=== PATIENT | female | born 1945 | race Caucasian/White ===

== ENCOUNTER → 2019-06-07 12:46 | Outpatient (CLI) | payer BC, MEDICARE, SELFPAY ==
--- NOTE | ~2019-06-07 | US_ITS ---
US renal BI 06/07/2019 13:08 Procedure: Realtime transabdominal ultrasound of the kidneys and bladder. Indication: Chronic kidney disease stage III Comparison: 08/17/2017 Findings: Renal echotexture is normal bilaterally without hydronephrosis, contour deforming mass or r enal calculus. The right kidney measures 11 cm and left kidney measures 8.7 cm. Bladder within qi l limits. Impression: 1: Unremarkable renal ultrasound. No stones, masses or hydronephrosis. Reviewed, dictated and finalized at location B. IT REPORT CHECKER Impression: 1: Unremarkable renal ultrasound. No stones, masses or hydronephrosis.
== END ==
PROVIDERS: Visit Provider Internal Medicine Nephrology
DX: N18.3 Chronic kidney disease, stage 3 (moderate) (principal)
CPT/HCPCS: 76775

== ENCOUNTER 2020-05-31 15:27 | Inpatient (IN) | payer BC, MEDICARE, SELFPAY ==
[2020-05-31] VITALS (17 sets, daily range): BP systolic 71–142; BP diastolic 41–98; PULSE 110–123; RESP 16–34; TEMP 36.6–37.4; O2SAT 92–100; BMI 42.7
--- NOTE | ~2020-05-31 | XR_ITS ---
EXAMINATION: XR chest port-a-cath/central DATE: 05/31/2020 20:00 INDICATION: Central line placement. TECHNIQUE: A single frontal view of the chest was obtained. COMPARISON: Chest single view at 3:55 PM FINDINGS: The chest demonstrates clear lungs without pneumonia, pleural effusion, or pneumothorax. Th e heart size is normal. There is a prominent left paracardial fat pad. A right internal jugular centr al venous catheter is seen with tip at the superior cavoatrial junction. IMPRESSION: 1. Central line tip at the superior cavoatrial junction. Reviewed, dictated and finalized at location A. Y TECHNICIAN
--- NOTE | ~2020-05-31 | CT_ITS ---
EXAMINATION: CT brain wo con DATE: 05/31/2020 17:20 INDICATION: Confusion. Fall today. Weakness. TECHNIQUE: Computed tomography (CT) of the head was performed without intravenous contrast. The mA wa s adjusted according to patient size. Iterative reconstruction technique was employed. Exam dose: 60 5.33 mGy-cm total exam DLP. COMPARISON: None FINDINGS: No intracranial mass lesion or hemorrhage or cerebrovascular accident is evident. Bilateral vertebral artery, basilar artery and bilateral carotid siphon internal carotid artery calcifications . There is nonspecific diminished attenuation of the cerebral white matter, likely due to chronic sma ll vessel ischemic changes. Normal ventricular size. No subdural or epidural hematoma. No fracture or bone destruction of the cranial vault. The included paranasal sinuses are normally dev eloped and aerated. The mastoid air cells are normally developed and aerated. IMPRESSION: Cerebral atherosclerosis and chronic small vessel ischemic changes of the cerebral white matter No acute intracranial abnormality or skull fracture Reviewed, dictated and finalized at Location A. Reviewed, dictated and finalized at location A. TROTHERAPIST
--- NOTE | ~2020-05-31 | XR_ITS ---
EXAMINATION: XR chest 2V DATE: 06/06/2020 16:28 INDICATION: 5 days of cough. Hypertension. TECHNIQUE: frontal and lateral views of the chest were obtained. COMPARISON: Chest radiograph dated 05/31/2020 FINDINGS: Opacities at the bilateral lung bases. Blunting at the costophrenic angles and posterior sulci consis tent with small bilateral pleural effusions. No pneumothorax. The cardiomediastinal silhouette is nor mal. There are bridging osteophytes at multiple levels in the spine, consistent with diffuse idiopath ic skeletal hyperostosis (DISH). IMPRESSION: 1. Small bilateral pleural effusions with bibasilar opacities which could represent atelectasis or le ss likely pneumonia. Reviewed, dictated and finalized at location B. FEEDER IMPRESSION: 1. Small bilateral pleural effusions with bibasilar opacities which could repre sent atelectasis or less likely pneumonia.
--- NOTE | ~2020-05-31 | US_ITS ---
US renal BI DATE: 06/01/2020 11:01 INDICATION: Acute on chronic renal disease TECHNIQUE: Real-time imaging of the kidneys and urinary bladder COMPARISON: 06/07/2019 bilateral renal ultrasound FINDINGS: The the right kidney measures approximately 10 cm vertical dimension. No renal mass lesion or hydronephrosis. Catheter in the urinary bladder, which is not distended and therefore not evaluated. IMPRESSION: No significant sonographic abnormality of the kidneys Reviewed, dictated and finalized at Location A. Reviewed, dictated and finalized at location A. S TEAM LEADER
--- NOTE | ~2020-05-31 | XR_ITS ---
EXAMINATION: XR chest 1V portable EXAM DATE: 05/31/2020 16:02 INDICATION: Transient alteration of awareness. TECHNIQUE: Portable AP frontal chest x-ray was obtained. Comparison is made to prior examination from 06/26/2013. FINDINGS: The lungs are clear. There are no pleural effusions. Cardiac silhouette is prominent but magnified on this AP technique. There is no pneumothorax suspected. There are bony degenerative ch anges. IMPRESSION: No acute cardiopulmonary findings. Reviewed, dictated and finalized at location B. TRY CLEANER
--- NOTE | 2020-05-31 15:26 | ED.WEAKNESS ---
HPI - Weakness General Chief complaint: Weakness Stated complaint: WEAKNESS History of Present Illness HPI Narrative: 74 yo female w/ h/o htn, dm, gout, CKF presents to the ED for weakness and confusion. She was reportedly not feeling well earlier in the day. More recently her found her shivering and confused. Asking about her mother. He tried to help her to the bathroom,but she was too weak to stand. She is not able to provide any useful history at this time. Related Data Home Medications Medication Instructions Recorded Confirmed aspirin 81 mg tablet,delayed 81 mg PO DAILY 09/27/19 05/29/20 release gabapentin 300 mg capsule 300 mg PO DAILY 09/27/19 05/29/20 lisinopril 5 mg tablet 5 mg PO DAILY 09/27/19 05/29/20 cholecalciferol (vitamin D3) 50 50 mcg PO DAILY 05/29/20 05/29/20 mcg (2,000 unit) tablet febuxostat 40 mg tablet 40 mg PO DAILY 05/29/20 05/29/20 furosemide 40 mg tablet 40 mg PO QAM 05/29/20 05/29/20 multivitamin 1 tablet PO DAILY 05/29/20 05/29/20 Allergies Allergy/AdvReac Type Severity Reaction Status Date / Time codeine Allergy Intermediate Rash Verified 05/29/20 13:12 Penicillins Allergy Intermediate Rash Verified 05/29/20 13:12 Sulfa (Sulfonamide Allergy Intermediate cheeks get Verified 05/29/20 13:12 Antibiotics) really red Review of Systems Review of Systems: ROS unobtainable: Yes unobtainable due to mental status [facility] Past Medical History Medical History (Updated 05/31/20 @ 19:45 by Pa Walters MD) Anemia BMI 37.0-37.9, adult Chronic kidney disease, stage 4 (severe) Diabetic peripheral neuropathy Thrombosed external hemorrhoid Type 2 diabetes mellitus with hyperglycemia Surgical History Surgical History (Updated 05/29/20 @ 13:20 by VARUN Malone) History of cholecystectomy Hx of tonsillectomy Family History Family History Mother Cerebrovascular accident Other Diabetes mellitus Family history of cardiovascular disease Hypertension Social History Social History (Updated 05/29/20 @ 13:21 by Angelica M. [place], OCCASIONAL CAREGIVER-C) Smoking status: Never smoker Alcohol intake: never Substance use: never Gender identity (if verbalized by the patient): Female Spiritual care concerns: No Exam Const: General: alert and ill appearing Nutritional Appearance: obese Orientation/consciousness: confusion Other: hsivering HENMT: Head: normal to inspection Eyes: Pupils: Equal, round and reactive pupils present EOM: EOMs intact bilaterally Resp: Effort & Inspection: tachypneic Auscultation: clear to auscultation bilaterally Cardio: Rate: tachycardic Rhythm: regular rhythm GI: GI Palp: Yes Soft to palpation and No Tenderness to palpation present (GI) Skin: General skin exam: normal color Neuro: General: moves all extremities, no focal motor deficits and CN's II-XI intact bilaterally Speech: normal speech Other: oriented x1-2 Extrem: General: edema (mild ) Course Vital Signs Vital signs: Vital Signs Pulse Rate 123 H 05/31/20 16:05 Temperature 36.9 C 05/31/20 17:41 Pulse Rate 114 H 05/31/20 19:30 Respiratory Rate 25 H 05/31/20 19:30 Blood Pressure 88/46 L 05/31/20 19:30 Pulse Oximetry 95 05/31/20 19:30 Procedures Central Line Placement Right IJ: Central Line Date: 05/31/20 Central Line Time: 19:43 Discussed w/ the patient/family/POA,the placement of a central venous catheter, including its clinical necessity/indication & associated potential risks, benifits and alternatives.: Yes Time Out Performed: Yes Patient Placed on Monitor/Pulse Ox: Yes Max. Sterile Barrier Technique: Caps, large sterile sheet and hand hygiene Central Line Prep: 2% chlorhexidine scrub and sterile drapes applied Technique: US-Guided Local Anesthetic: lidocaine 1% Amount of anesthesia used (mL): 3 Post Procedure: duffy
--- NOTE | 2020-05-31 15:37 | ECG_ITS ---
Measurements Intervals [place] Rate: 125 P: 53 NJ: 141 QRS: 84 QRSD: 68 T: 67 QT: 270 QTc: 390 Interpretive Statements SINUS TACHYCARDIA BASELINE ARTIFACT- I, AVL ABNORMAL ECG Electronically Signed On 05-31-2020 21:09:36 SUBSTANCE ABUSE SERVICES DIRECTOR by Darnell Ames D.O.
[2020-05-31 16:00] LABS: Hematocrit 36.1 % (37.0-47.0); Hemoglobin 10.7 g/dL (12.0-15.0); Mean Corpuscular HGB Conc 29.6 g/dl (32-36); Mean Corpuscular Hemoglobin 27.2 pg (26-34); Mean Corpuscular Volume 91.6 fl (80-100); Mean Platelet Volume 9.5 fl (7.4-10.4); Platelet Count Result 161 k/mm3 (150-375); Red Blood Count 3.94 M/mm3 (4.2-5.4); Red Cell Distribution Width 17.8 % (11.5-14.5); White Blood Count 3.4 K/mm3 (4.5-10.0)
[2020-05-31 16:05] LABS: Add Urine Microscopic? YES; Appearance Urine Clear (Clear); Bacteria Urine 1+ /hpf; Bilirubin Urine Negative (Negative); Blood Urine Negative (Negative); Color Urine Yellow (Yellow); Glucose Urine UA Negative (Negative); Ketones Urine Negative (Negative); Leukocyte Esterase Ur 2+ LEU/UL (Negative); Mucus Urine Rare /lpf; Nitrate Urine Negative (Negative); Protein Urine 1+ mg/dL (Negative); Specific Grav Ur 1.015 (1.001-1.035); Squamous Epithelial Cell Urine Rare /hpf (Few); Urobilinogen Urine Negative mg/dL (<2.0); WBC Urine 51-75 /hpf
[2020-05-31 16:10] LABS: INR 1.1; Prothrombin Time 14.7 Seconds (11.1-14.7)
[2020-05-31 16:11] LABS: Partial Thromboplastin Time 37.6 SECONDS (22.3-36.8)
[2020-05-31 16:16] LABS: Lactic Acid Reflex 3.1 mmol/L (0.7-2.1)
[2020-05-31 16:18] LABS: Band Neutrophils Percent 13 % (0-6); Lymphocytes Absolute Manual 1.36 K/mm3 (1.1-4.5); Monocytes Absolute Manual 0.06 K/mm3 (0.1-0.90); Monocytes Percent Manual 2 % (3-9); Neutrophils Absolute Manual 1.97 K/mm3 (1.7-7.2); Neutrophils Percent Manual 45 % (46-73); Platelet Estimate Adequate (Adequate); Total Cells Counted 100
[2020-05-31 16:19] LABS: Anisocytosis 2+ (NORMAL); Hypochromasia 1+ (NORMAL)
[2020-05-31 16:27] LABS: Alanine Aminotransferase 33 U/L (4-35); Alkaline Phosphatase 131 U/L (38-126); Anion Gap 15 mmol/L (8-16); Aspartate Amino Transferase 37 U/L (14-36); Bilirubin,Total 0.5 mg/dL (0.2-1.3); Blood Urea Nitrogen 87 mg/dL (7-17); CRP > 9.0 mg/dL (<1.0); Calcium 8.9 mg/dL (8.4-10.2); Carbon Dioxide 12 mmol/L (22-30); Chloride 113 mmol/L (98-107); Estimated Glomerular Filt Rate 12; Glucose 81 mg/dL (65-105); Sodium 140 mmol/L (137-145)
[2020-05-31] MEDS: SODIUM CHLORIDE 0.9% IV 1,000 ML 999 ML IV CONT ×3 (17:11→18:20)
[2020-05-31 18:58] LABS: Reflex Lactic Acid Yes or No Add Lactic
--- NOTE | 2020-05-31 19:11 | PC.NURSE ---
Consent obtained for central line placement.
--- NOTE | 2020-05-31 19:21 | PC.NURSE ---
dr. edison alegria doing a central line.
[2020-05-31] MEDS: NOREPINEPHRINE 8 MG/D5W 250 ML 8 MG/250 ML BAG 9.38 MG IV CONT (20:03)
[2020-05-31 20:07] LABS: Lactic Acid 1.2 mmol/L (0.7-2.1)
--- NOTE | 2020-05-31 20:54 | PM.IMHP ---
H&P: HPI History of Present Illness Date/Time: 05/31/20 20:54 Chief Complaint: Fever and chills Narrative: Kori Arellano is a 74 year old female who has a history of diabetes gout and chronic kidney disease. The patient stated that she started to feel weak and febrile approximately 2 days ago. She was very achy. She was found to be shivering and confused today. She was asking about her mother today. The patient was too weak to stand. Her tried to get up today was unable to. The was providing history for me. White count 3.4. H&H is 10.7 and 36.1. The patient does have a history of chronic anemia. Most likely due to the chronic renal failure. Creatinine was 3.8 and GFR is 12. Lactic acid was 3.1 and is now 1.2. C reactive protein is greater than 9. Urine was positive for UTI. Patient was swabbed for COVID-19 as well. Patient was started on ceftriaxone. She had been given some IV fluids. Patient was given for IV boluses. Regardless of the boluses the patient's blood pressure continued to drop and a central line was placed per ED provider and the patient was started on Levophed. CT of the head was read as cerebral atherosclerosis and chronic small vessel ischemic changes of cerebral white matter, no acute intracranial abnormality or skull fracture. The patient was swabbed for COVID-19 Chest x-ray was read as no acute cardiopulmonary findings. The patient was admitted inpatient on the date of service 05/31/2020. She is admitted to ICU. Review of Systems Review of Systems: All systems reviewed & are unremarkable except as noted in HPI and below Constitutional: Constitutional: Reports as per HPI and Reports no additional constitutional complaints Eyes: Eyes: Reports as per HPI and Reports no additional eye complaints ENT: Reports system reviewed and no additional complaints, except as documented and Reports Normal hearing present Cardiovascular: Cardiovascular: Reports no additional cardiovascular complaints Respiratory: Respiratory: Reports no additional respiratory complaints and Reports no additional respiratory complaints Gastrointestinal: Gastrointestinal: Reports as per HPI and Reports no additional gastrointestinal complaints Musculoskeletal: Musculoskeletal: Reports no additional musculoskeletal complaints Integumentary/Breasts: Skin/Breast: Reports system reviewed and no additional complaints, except as docu and Reports as per HPI Neurologic: Reports system reviewed and no additional complaints, except as documented, Reports as per HPI and Reports Normal hearing present Psychiatric: Psychiatric: Reports no additional psychiatric complaints and Reports as per HPI Endocrine: Endocrine: Reports no additional endocrine complaints Hematologic/Lymphatic: Hematologic/Lymphatic: Reports no additional hematologic/lymphatic complaints Allergic/Immunologic: Allergic/Immunologic: Reports no additional allergic/immunologic complaints [facility] Past Medical History Medical History (Updated 05/31/20 @ 21:52 by Pau Farmer NP) Anemia BMI 37.0-37.9, adult CHF (congestive heart failure), NYHA class I Chronic kidney disease, stage 4 (severe) Diabetic peripheral neuropathy Hyperlipidemia, unspecified Hypertension, essential Thrombosed external hemorrhoid Type 2 diabetes mellitus with hyperglycemia Surgical History Surgical History History of cholecystectomy Hx of tonsillectomy Family History Family History (Updated 05/31/20 @ 21:27 by Kenyatta Perales RN) Mother Cerebrovascular accident Diabetes mellitus Family history of cardiovascular disease Father Myocardial infarction Sibling Colon cancer Congestive heart failure Other Hypertension Social History Social History (Updated 05/31/20 @ 21:14 by Pau Farmer NP) Social History: The patient had 3 children. 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 Power
--- NOTE | 2020-05-31 21:25 | ADMGEN ---
This patient, Kori Arellano, was admitted to Intensive Care Unit-5. Patient/family oriented to hospital policies and general routines including ID bracelet, bed and alarms, visiting hours, pain management, procedures, bathroom and other care routines, personal items, smoking policy, room service/diet, and visiting hours. Information on how to activate the Rapid Response Team has been discussed. Patient/Family are encouraged to report perceived risks to care and to ask questions if they do not understand what they are told or what they should do.
[2020-05-31 21:37] LABS: Glucose Point of Care 92 (65-105)
[2020-05-31] MEDS: GABAPENTIN 300 MG CAPSULE PO (23:37)
[2020-06-01] VITALS (16 sets, daily range): BP systolic 98–120; BP diastolic 56–87; PULSE 105–117; RESP 14–28; TEMP 36.8–37.5; O2SAT 95–100
--- NOTE | 2020-06-01 | ECHO_ITS ---
Patient Info Name: Kori Arellano Age: 74 years : 1945 Gender: Female Ht: 61 in Wt: 226 lbs BSA: 2.16 m2 HR: 103 bpm BP: 118 / 60 mmHg Heart Rhythm: Tachycardia Technical Quality: Fair Exam Date: 06/01/2020 11:16 AM Exam Location: [facility] Pulmonary Exam Room: ICU 5 Patient Status: Inpatient Admit Date: 05/31/2020 Staff Ordering Physician: Pau Farmer NP Electro Plater: Carolina Johansen RDCS Attending Provider: Marvin Chang MD Referring Physician: Darian WANG; Exam Type: CA echo doppler color flow Study Info Indications - chf Complete two-dimensional, color flow and Doppler transthoracic echocardiogram is performed. Summary 1. Complete two-dimensional, color flow and Doppler transthoracic echocardiogram is performed. 2. Left ventricular systolic function is normal, estimated at 60-65%. 3. There is no increased left ventricular wall thickness. 4. The left ventricular diastolic function is grade I diastolic dysfunction. 5. Right atrial chamber dimension is mildly enlarged. 6. There is no aortic valve stenosis. 7. There is trace mitral valve regurgitation. 8. There is mild tricuspid valve regurgitation. 9. Moderate pulmonary hypertension, estimated pulmonary arterial systolic pressure is 50 mmHg. Left Ventricle Left ventricular chamber dimension is normal. Left ventricular systolic function is normal, estimated at 60-65%. There is no increased left ventricular wall thickness. The left ventricular diastolic function is grade I diastolic dysfunction. Right Ventricle Right ventricular chamber dimension is normal. Right ventricular systolic function is normal. Left Atria Left atrial chamber dimension is normal. Right Atria Right atrial chamber dimension is mildly enlarged. Aortic Valve The aortic valve is probable trileaflet. There is mild aortic valve sclerosis. There is no aortic valve stenosis. There is no aortic valve regurgitation. Pulmonic Valve The pulmonic valve is not well visualized. There is trace pulmonic regurgitation. Mitral Valve The mitral valve has normal leaflets. There is trace mitral valve regurgitation. The mitral valve annulus is mildly calcified. Tricuspid Valve The tricuspid valve leaflets are normal. There is mild tricuspid valve regurgitation. Moderate pulmonary hypertension, estimated pulmonary arterial systolic pressure is 50 mmHg. Pericardium/Pleural The pericardium appears normal. There is small pericardial effusion. Inferior Vena Cava Normal inferior vena cava with <50% collapse upon inspiration consistent with elevated right atrial pressure, 10 mmHg. Aorta The aortic root size at the sinus of Valsalva is normal. There is mild aortic atherosclerosis. Left Ventricular Outflow Tract Name Value Normal LVOT 2D LVOT Diameter 2.0 cm LVOT Doppler LVOT Peak Gradient 6 mmHg LVOT Mean Gradient 3 mmHg LVOT VTI 20 cm LVOT VTI/AV VTI Ratio 1.1 LVOT Stroke Volume 62 ml
[2020-06-01] MEDS: ACETAMINOPHEN 325 MG TABLET 650 MG PO ×2 (03:00→23:40)
[2020-06-01 05:00] LABS: Hematocrit 29.5 % (37.0-47.0); Hemoglobin 8.9 g/dL (12.0-15.0); Mean Corpuscular HGB Conc 30.2 g/dl (32-36); Mean Corpuscular Hemoglobin 27.1 pg (26-34); Mean Corpuscular Volume 89.9 fl (80-100); Mean Platelet Volume 9.7 fl (7.4-10.4); Platelet Count Result 151 k/mm3 (150-375); Red Blood Count 3.28 M/mm3 (4.2-5.4); Red Cell Distribution Width 17.8 % (11.5-14.5); White Blood Count 19.9 K/mm3 (4.5-10.0)
[2020-06-01 05:13] LABS: Hemoglobin A1C 6.5 % (<5.7)
[2020-06-01 05:14] LABS: Alanine Aminotransferase 26 U/L (4-35); Alkaline Phosphatase 90 U/L (38-126); Anion Gap 9 mmol/L (8-16); Aspartate Amino Transferase 35 U/L (14-36); Bilirubin,Total 0.1 mg/dL (0.2-1.3); Blood Urea Nitrogen 81 mg/dL (7-17); Calcium 7.8 mg/dL (8.4-10.2); Carbon Dioxide 16 mmol/L (22-30); Chloride 115 mmol/L (98-107); Estimated CRCL calculation 13 ml/min; Estimated Glomerular Filt Rate 11; Glucose 158 mg/dL (65-105); Magnesium 1.5 mg/dL (1.6-2.3); Potassium 5.3 mmol/L (3.4-5.0); Sodium 140 mmol/L (137-145)
[2020-06-01 05:15] LABS: Lactic Acid Reflex 1.4 mmol/L (0.7-2.1)
[2020-06-01 05:22] LABS: Band Neutrophils Percent 14 % (0-6); Lymphocytes Absolute Manual 1.19 K/mm3 (1.1-4.5); Monocytes Absolute Manual 0.19 K/mm3 (0.1-0.90); Monocytes Percent Manual 1 % (3-9); Neutrophils Percent Manual 79 % (46-73); Platelet Estimate Adequate (Adequate); Total Cells Counted 100
[2020-06-01 07:55] LABS: Glucose Point of Care 135 (65-105)
[2020-06-01] MEDS: ALBUTEROL SULFATE NEB 2.5 MG/0.5 ML INH 10 MG INHALATION (08:15)
--- NOTE | 2020-06-01 08:21 | WPDCNINT ---
Assessment and Plan Assessment and plan (1) Septic shock: Code(s): A41.9 - Sepsis, unspecified organism; R65.21 - Severe sepsis with septic shock Status: Acute Assessment and Plan: Patient presented with fevers, chills, generalized weakness. Was found to be hypotensive in the ED despite adequate fluid resuscitation -patient was started on Levophed briefly currently off -continue to maintain mean arterial pressures greater than 65 mmHg for adequate end organ perfusion and to prevent end-organ damage -continue ceftriaxone -urine and blood cultures have been obtained and pending -elevated lactic acid on admission which resolved with fluids (2) UTI (urinary tract infection): Code(s): N39.0 - Urinary tract infection, site not specified Status: Acute Assessment and Plan: UA reflective of UTI, urine cultures are pending, continue ceftriaxone (3) Acute kidney injury superimposed on chronic kidney disease: Code(s): N17.9 - Acute kidney failure, unspecified; N18.9 - Chronic kidney disease, unspecified Status: Acute Assessment and Plan: Acute on chronic kidney disease, likely secondary to infection, hypotension, hypovolemia, septic shock and lisinopril -patient adequately fluid-resuscitated -patient with metabolic acidosis, started on bicarb infusion at 50 mL/hour -hyperkalemia, will treat with insulin and D50, albuterol and Kayexalate -nephrology has been consulted -will obtain urine lytes (4) Type 2 diabetes mellitus with hyperglycemia: Code(s): E11.65 - Type 2 diabetes mellitus with hyperglycemia Status: Chronic Assessment and Plan: Continue Accu-Cheks and sliding scale insulin -hemoglobin A1c 6.5 on this admission -patient has history of diabetic neuropathy for which she is on gabapentin (5) Weakness: Code(s): R53.1 - Weakness Status: Acute Assessment and Plan: Weakness in lower extremities could be related to hypertension, infection/septic shock, UTI, diabetic neuropathy -treatment of the underlying cause -also restarted on home, pending (6) CHF (congestive heart failure), NYHA class I: Code(s): I50.9 - Heart failure, unspecified Status: Chronic Assessment and Plan: Echocardiogram has been ordered on admission -Show any acute cardiopulmonary disease (7) DVT prophylaxis: Code(s): Z29.9 - Encounter for prophylactic measures, unspecified Status: Acute Assessment and Plan: Heparin SQ (8) Suspected 2019 novel coronavirus infection: Code(s): Z20.822 - Contact with and (suspected) exposure to COVID-19 Status: Acute Assessment and Plan: Patient was fevers, chills, leukopenia. Patient denies any contact with COVID-19 positive patient's -SARS-CoV-2 PCR has been obtained and pending -continue droplet, airborne and contact isolation/precautions Additional Plan Discussed with patient updated with her condition and plan of care. I did update her regarding her UTI, possible bloodstream infection, patient is on appropriate antibiotics, cultures are pending. I told her that we are waiting for her COVID-19 test results. I answered all questions Code status: Full code Critical care time spent: 44 minutes This dictation may have been done utilizing a voice recognition system. Attempts have been made to correct errors. However, there may be uncorrected grammatical, spelling, and recognition errors present. Due to a high probability of clinically significant, life threatening deterioration, the patient required my highest level of preparedness to intervene emergently and I personally spent this critical care time directly and personally managing the patient. This critical care time included obtaining a history; examining the patient; pulse oximetry; ordering and review of studies; arranging urgent treatment with development of a management plan; evaluation of patient's response to treatment; frequent rip
[2020-06-01] MEDS: SODIUM BICARBONATE 8.4% 50 MEQ/50 ML SYRINGE IV PUSH ×2 (08:30→08:31)
[2020-06-01] MEDS: INSULIN HUMAN REGULAR (*BKC) 100 UNITS/ML 10 UNITS IV PUSH (08:31)
[2020-06-01] MEDS: DEXTROSE 50% 25 GM/50 ML SYRINGE IV PUSH (08:31)
[2020-06-01] MEDS: GLIMEPIRIDE 2 MG TABLET PO ×2 (08:32→17:29)
[2020-06-01] MEDS: ASPIRIN 81 MG ENTERIC TABLET PO (08:32)
[2020-06-01] MEDS: GABAPENTIN 300 MG CAPSULE PO ×3 (08:32→19:37)
[2020-06-01] MEDS: SODIUM BICARBONATE 8.4% 150 MEQ in WATER, STERILE FOR INJECTION 950 ML 50 MEQ IV CONT (08:51)
[2020-06-01 09:42] LABS: Creatinine Urine 84.3 mg/dL
[2020-06-01] MEDS: HEPARIN SODIUM 5,000 UNITS/ML VIAL 5000 UNITS SUB-Q ×2 (10:05→19:37)
[2020-06-01] MEDS: SODIUM POLYSTYRENE SULFONONATE 15 GM/60 ML BTL 30 GM PO (10:05)
[2020-06-01 10:06] LABS: Potassium Urine Random 34.3 meq/L; Sodium Urine Random 30 meq/L
[2020-06-01 11:54] LABS: Glucose Point of Care 146 (65-105)
[2020-06-01 12:10] LABS: Anion Gap 11 mmol/L (8-16); Blood Urea Nitrogen 85 mg/dL (7-17); Calcium 7.7 mg/dL (8.4-10.2); Carbon Dioxide 19 mmol/L (22-30); Chloride 114 mmol/L (98-107); Estimated CRCL calculation 13 ml/min; Estimated Glomerular Filt Rate 11; Glucose 156 mg/dL (65-105); Potassium 4.5 mmol/L (3.4-5.0); Sodium 144 mmol/L (137-145)
--- NOTE | 2020-06-01 16:21 | PM.IMPN ---
Subjective Date/time seen: 06/01/20 16:21 Interval history: 74 year old female with significant past medical history of CHF, chronic kidney disease stage 4, diabetic peripheral neuropathy, hyperlipidemia, essential hypertension, diabetes presented the ED on 05/31/2020 with complains of generalized weakness that started about 2 days ago the patient also complained of fevers and was found to have chills on the day of admission. Objective Data Vital Signs Vital Signs: Vital Signs - 24 hr 05/31/20 17:24 05/31/20 17:41 05/31/20 17:56 Temperature 36.9 C Pulse Rate 115 H 114 H Respiratory Rate 27 H 23 H Blood Pressure 90/49 L 87/41 L Pulse Oximetry 93 94 05/31/20 18:14 05/31/20 18:23 05/31/20 18:38 Temperature Pulse Rate 111 H 115 H 111 H Respiratory Rate 21 H 20 30 H Blood Pressure 84/52 L 91/56 L 88/51 L Pulse Oximetry 93 93 92 05/31/20 18:49 05/31/20 18:50 05/31/20 19:22 Temperature Pulse Rate 110 H 111 H 112 H Respiratory Rate 22 H 24 H 26 H Blood Pressure 84/53 L 95/48 L 71/57 L Pulse Oximetry 93 94 94 05/31/20 19:30 05/31/20 20:03 05/31/20 20:15 Temperature Pulse Rate 114 H 116 H 115 H Respiratory Rate 25 H 19 Blood Pressure 88/46 L 79/53 L 96/49 L Pulse Oximetry 95 94 05/31/20 21:51 05/31/20 22:00 05/31/20 23:34 Temperature 36.6 C Pulse Rate 114 H 112 H 116 H Respiratory Rate 16 22 H Blood Pressure 93/51 L 92/54 L 119/63 Pulse Oximetry 97 100 06/01/20 00:00 06/01/20 02:00 06/01/20 04:00 Temperature 37.5 C Pulse Rate 116 H 117 H 114 H Respiratory Rate 20 22 H Blood Pressure 120/68 117/73 Pulse Oximetry 97 98 06/01/20 05:00 06/01/20 06:00 06/01/20 08:00 Temperature 37.4 C Pulse Rate 116 H 106 H Respiratory Rate 25 H 21 H Blood Pressure 100/61 118/60 107/74 Pulse Oximetry 99 97 06/01/20 08:16 06/01/20 10:00 06/01/20 12:00 Temperature 37.2 C Pulse Rate 106 H 108 H 106 H Respiratory Rate 21 H 22 H 21 H Blood Pressure 98/58 L 117/56 L Pulse Oximetry 95 99 06/01/20 14:00 06/01/20 16:00 Temperature Pulse Rate 114 H 105 H Respiratory Rate 28 H Blood Pressure 102/87 Pulse Oximetry 98 Intake/Output Intake/Output: Intake & Output 05/29/20 05/30/20 05/31/20 06/01/20 23:59 23:59 23:59 23:59 Intake Total 3150 860 Output Total 550 425 Balance 2600 435 Meds/Results Medications: Active Medications Generic Name Dose Route Start Last Admin Trade Name Freq PRN Reason Stop Dose Admin Acetaminophen 650 mg 06/01/20 01:09 06/01/20 03:00 Acetaminophen 325 Mg Tablet PO 650 mg Q4H PRN Administration Mild Pain (1-3) or Fever Aspirin 81 mg 06/01/20 09:00 06/01/20 08:32 Aspirin 81 Mg Enteric Tablet PO 81 mg DAILY JACKY Administration Dextrose 12.5 gm 05/31/20 20:59 Dextrose 50% 25 Gm/50 Ml Syringe IV PUSH PRN PRN Hypoglycemia Protocol Gabapentin 300 mg 05/31/20 21:45 06/01/20 13:26 Gabapentin 300 Mg Capsule PO Not Given QID JACKY Glimepiride 2 mg 06/01/20 09:00 06/01/20 08:32 Glimepiride 2 Mg Tablet PO 2 mg BID JACKY Administration Glucagon 1 mg 05/31/20 20:59 Glucagon For Inj 1 Mg Vial IM PRN PRN Hypoglycemia Protocol Glucose 15 gm 05/31/20 20:59 Glucose Oral Gel 15 Gm Of Glucse In 37.5 Gm Tube PO PRN PRN Hypoglycemia Protocol Heparin Sodium (Porcine) 5,000 units 06/01/20 09:00 06/01/20 10:05 Heparin Sodium 5,000 Units/Ml Vial SUB-Q 5,000 units Q12HR JACKY Administration Ceftriaxone Sodium/Dextrose 1 gm in 50 mls @ 100 mls/hr 06/01/20 18:00 Rocephin 1 Gm/D5w 50 Ml IVPB Q24H JACKY Dextrose 1,000 mls @ 100 mls/hr 05/31/20 20:59 Dextrose 5% 1,000 Ml IVPB PRN PRN Hypoglycemia Protocol Norepinephrine Bitartrate 8 mg in 250 mls @ 0 mls/hr 06/01/20 07:15 Levophed 8 Mg/D5w 250 Ml IV CONT .Q0M JACKY Sodium Bicarbonate 150 meq/ 1,100 mls @ 75 mls/hr 06/01/20 08:30 06/01/20 1
--- NOTE | 2020-06-01 17:03 | PM.CNNEP ---
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 follow-up on renal ultrasound and urine lytes follow trend repeat labs and UOP (2) Chronic kidney disease, stage 4 (severe): Code(s): N18.4 - Chronic kidney disease, stage 4 (severe) Status: Chronic Assessment and Plan: baseline creatinine runs ~ 1.7 - 2.2mg/dl in the last couple of years based on outpatient evaluation, thought to be secondary to HTN, DM, and vascular disease (3) Septic shock: Code(s): A41.9 - Sepsis, unspecified organism; R65.21 - Severe sepsis with septic shock Status: Acute Assessment and Plan: possible urosepsis given + blood and urine cultures on IV antibiotics wean off vasopressor therapy follow hemodynamics (4) Metabolic acidosis: Code(s): E87.2 - Acidosis Status: Acute Assessment and Plan: due to NATE along with previous lactic acidosis bicarb gtt to compensate (5) Anemia: Code(s): D64.9 - Anemia, unspecified Status: Chronic Assessment and Plan: partly due to CKD but worsened by NATE and acute illness/infection follow trend of H/H (6) Diabetes: Code(s): E11.9 - Type 2 diabetes mellitus without complications Status: Acute Assessment and Plan: follow accuchecks glycemic control Will continue to follow. History of Present Illness Reason for Consult Consult date: 06/01/20 Reason for consult: acute renal failure (on chronic kidney disease) Chief Complaint Chief complaint: Septic shock, UTI, possible COVID-19 History of Present Illness Narrative: The patient is as 74 year old female with significant past medical history as outlined below who presented the ED with complains of generalized weakness. The patient states that the weakness started about 2-3 days ago in association with fevers and chills. Her weakness was so profound that she was unable to stand or even use the restroom. Because of this significant change she was brought to the emergency room for further evaluation. Workup and evaluation emergency room demonstrated routine labs with a low white blood cell count, elevated lactic acid and an elevated BUN and creatinine far above her baseline. She was also hypotensive and appeared to be shock. She was she received aggressive IV fluid resuscitation but despite this, she remained hypotensive and a central line had to be placed with initiation of vasopressor therapy. Her chest x-ray did not demonstrate any acute findings but her urinalysis was highly suggestive of a urinary tract infection. Appropriate cultures were obtained and she was started on broad-spectrum IV antibiotic therapy with subsequent admission to the intensive care unit. Since her admission, she has improved in that she has been weaned off Levophed with relative stability in her hemodynamics. Her mentation appears to be doing reasonably well and she has made more urine output since her admission than when she was in the emergency room. She is otherwise in no acute distress. Renal consultation was requested due to her acute kidney injury on top of her chronic kidney disease. The patient normally follows in clinic with Dr. Sourav Ramirez for her ongoing CKD management. Her baseline creatinine normally runs around 1.7-2.2 mg/dL in the last few years thought to be secondary to a combination of her hypertension and diabetes based on outpatient evaluation. Her creatinine on admission as already noted was 3.9 mg/dL but has not further deteriorated since her admission. Review of Systems Review of Systems: Narrative: As per HPI. PMFSH P
[2020-06-01 17:35] LABS: Glucose Point of Care 107 (65-105)
[2020-06-01 19:42] LABS: SARS-CoV-2 RNA PCR Negative
--- NOTE | 2020-06-01 21:31 | PC.NURSE ---
This patient, Kori Arellano, was transferred to [ [id number]] on 06/01/20 at 2131. Personal belongings sent with patient. Report given to [[facility] ]. Appropriate documentation sent with patient.
[2020-06-01 21:49] LABS: Glucose Point of Care 158 (65-105)
[2020-06-02] VITALS (14 sets, daily range): BP systolic 115–137; BP diastolic 52–67; PULSE 97–116; RESP 12–18; TEMP 36.1–38.3; O2SAT 94–98
[2020-06-02] MEDS: SODIUM BICARBONATE 8.4% 150 MEQ in WATER, STERILE FOR INJECTION 950 ML 75 MEQ IV CONT ×2 (00:07→15:40)
[2020-06-02 03:16] LABS: Hematocrit 24.5 % (37.0-47.0); Hemoglobin 7.8 g/dL (12.0-15.0); Mean Corpuscular HGB Conc 31.8 g/dl (32-36); Mean Corpuscular Hemoglobin 27.3 pg (26-34); Mean Corpuscular Volume 85.7 fl (80-100); Mean Platelet Volume 9.5 fl (7.4-10.4); Platelet Count Result 134 k/mm3 (150-375); Red Blood Count 2.86 M/mm3 (4.2-5.4); White Blood Count 12.6 K/mm3 (4.5-10.0)
[2020-06-02 03:31] LABS: Lactic Acid Reflex 1.2 mmol/L (0.7-2.1)
[2020-06-02 03:33] LABS: Alanine Aminotransferase 23 U/L (4-35); Albumin Level 2.7 g/dL (3.5-5.1); Alkaline Phosphatase 90 U/L (38-126); Anion Gap 7 mmol/L (8-16); Aspartate Amino Transferase 31 U/L (14-36); Bilirubin,Total 0.1 mg/dL (0.2-1.3); Blood Urea Nitrogen 89 mg/dL (7-17); Calcium 7.3 mg/dL (8.4-10.2); Carbon Dioxide 24 mmol/L (22-30); Chloride 111 mmol/L (98-107); Estimated CRCL calculation 13 ml/min; Estimated Glomerular Filt Rate 12; Glucose 158 mg/dL (65-105); Magnesium 1.7 mg/dL (1.6-2.3); Phosphorus 4.3 mg/dL (2.5-4.5); Potassium 3.9 mmol/L (3.4-5.0); Sodium 142 mmol/L (137-145)
[2020-06-02 03:39] LABS: Band Neutrophils Percent 14 % (0-6); Eosinophils Absolute Manual 0.12 K/mm3 (0.02-0.5); Eosinophils Percent Manual 1 % (0-4); Lymphocytes Absolute Manual 1.51 K/mm3 (1.1-4.5); Monocytes Absolute Manual 0.12 K/mm3 (0.1-0.90); Monocytes Percent Manual 1 % (3-9); Neutrophils Absolute Manual 10.83 K/mm3 (1.7-7.2); Neutrophils Percent Manual 72 % (46-73); Platelet Estimate Adequate (Adequate); Total Cells Counted 100
[2020-06-02] MEDS: ACETAMINOPHEN 325 MG TABLET 650 MG PO ×3 (05:31→17:11)
[2020-06-02 07:16] LABS: Glucose Point of Care 124 (65-105)
[2020-06-02] MEDS: GABAPENTIN 300 MG CAPSULE PO ×4 (08:41→20:27)
[2020-06-02] MEDS: ASPIRIN 81 MG ENTERIC TABLET PO (08:41)
[2020-06-02] MEDS: GLIMEPIRIDE 2 MG TABLET PO ×2 (08:41→17:12)
[2020-06-02] MEDS: HEPARIN SODIUM 5,000 UNITS/ML VIAL 5000 UNITS SUB-Q ×2 (08:41→20:27)
[2020-06-02 11:48] LABS: Glucose Point of Care 133 (65-105)
--- NOTE | 2020-06-02 11:51 | PM.IMPN ---
Progress Note: A&P Assessment and Plan (1) Sepsis: Code(s): A41.9 - Sepsis, unspecified organism Status: Acute Assessment and Plan: The patient was started on ceftriaxone. Blood and urine cultures are pending. (2) UTI (urinary tract infection): Code(s): N39.0 - Urinary tract infection, site not specified Status: Acute Assessment and Plan: Patient is on Rocephin. Blood and urine cultures are pending. (3) Hyperlipidemia, unspecified: Code(s): E78.5 - Hyperlipidemia, unspecified Status: Chronic Assessment and Plan: I am holding simvastatin at this time. (4) Hypertension, essential: Code(s): I10 - Essential (primary) hypertension Status: Chronic Assessment and Plan: I am holding all of her antihypertensive medications due to her low blood pressure. (5) Chronic kidney disease, stage 4 (severe): Code(s): N18.4 - Chronic kidney disease, stage 4 (severe) Status: Chronic Assessment and Plan: It appears to be worsening. She has chronic renal failure stage 3 to 4. nephrology on the case. pt is on sodium bicarbonate drip . (6) Type 2 diabetes mellitus with hyperglycemia: Code(s): E11.65 - Type 2 diabetes mellitus with hyperglycemia Status: Chronic Assessment and Plan: Accu-Cheks AC and HS. =. (7) CHF (congestive heart failure), NYHA class I: Code(s): I50.9 - Heart failure, unspecified Status: Chronic Assessment and Plan: Lasix is on hold at this time. And lisinopril is on hold. (8) Anemia: Code(s): D64.9 - Anemia, unspecified Status: Chronic Assessment and Plan: Of chronic disease. hb is 7.8 Subjective Date/time seen: 06/01/20 11:51 Interval history: 74 year old female with significant past medical history of CHF, chronic kidney disease stage 4, diabetic peripheral neuropathy, hyperlipidemia, essential hypertension, diabetes presented the ED on 05/31/2020 with complains of generalized weakness and fevers, pt awaiting covid result. Complains of abdominal discomfort. Pt is off vasopressor can be transferred to medical floor. Review of Systems Review of Systems: All systems reviewed & are unremarkable except as noted in HPI and below Exam Const: General: cooperative and ill appearing HENMT: Head: normocephalic Eyes: General: appearance normal, both eyes and all related structures Neck: Neck: normal visual inspection, full ROM and no lymphadenopathy Chest: Chest palpation & inspection: normal inspection of the chest Resp: Effort & Inspection: normal respiratory effort Auscultation: clear to auscultation bilaterally Percussion: percussion normal Cardio: Palpation: normal PMI Rate: regular rate Rhythm: regular rhythm GI: Inspection: normal to inspection Auscultation: normal bowel sounds Skin: General skin exam: normal color Lesions: no lesions Rashes: no rashes Trauma: no lacerations or abrasions Wounds: no wounds Hair: normal Nails: normal Neuro: General: oriented to person and oriented to place Cranial nerves: Yes Equal, round and reactive pupils present and Yes Normal hearing present Cognition (Neuro): normal cognition Speech: normal speech Gait exam (Neuro): Normal gait present Motor exam (neuro): 5/5 motor strength present throughout Sensory Exam: normal sensation Extrem: General: normal to inspection Right upper extremity: normal to inspection Left upper extremity: normal to inspection Left lower extremity: normal to inspection Psych: Appearance: grossly normal Mental Status: mental status grossly normal Speech and movement: Normal speech and movement present Affect: normal affect Attitude: cooperative Thought process: Other thought process findings present (Slightly confused) Insight: Limited insight present (Psych) Judgement: Limited judgement present (Psych) Objective Data Vital Signs Vital Signs: Vital Signs - 24 hr 06/01
--- NOTE | 2020-06-02 12:22 | PM.IMPN ---
Progress Note: A&P Assessment and Plan (1) Sepsis: Code(s): A41.9 - Sepsis, unspecified organism Status: Acute Assessment and Plan: The patient was started on ceftriaxone. Pt had Ecoli in her blood culture and urine culture. (2) UTI (urinary tract infection): Code(s): N39.0 - Urinary tract infection, site not specified Status: Acute Assessment and Plan: Patient is on Rocephin. Pt had Ecoli in her blood culture and urine culture. (3) Hyperlipidemia, unspecified: Code(s): E78.5 - Hyperlipidemia, unspecified Status: Chronic Assessment and Plan: Simvastatin at hold at this time. (4) Hypertension, essential: Code(s): I10 - Essential (primary) hypertension Status: Chronic Assessment and Plan: I am holding all of her antihypertensive medications due to her low blood pressure. (5) Chronic kidney disease, stage 4 (severe): Code(s): N18.4 - Chronic kidney disease, stage 4 (severe) Status: Chronic Assessment and Plan: It appears to be worsening. She has chronic renal failure stage 3 to 4. nephrology on the case. Pt is on sodium bicarbonate drip. Nephrology rounding. Continue to watch BMP. (6) Type 2 diabetes mellitus with hyperglycemia: Code(s): E11.65 - Type 2 diabetes mellitus with hyperglycemia Status: Chronic Assessment and Plan: Accu-Cheks AC and HS. (7) CHF (congestive heart failure), NYHA class I: Code(s): I50.9 - Heart failure, unspecified Status: Chronic Assessment and Plan: Lasix is on hold at this time. And lisinopril is on hold. (8) Anemia: Code(s): D64.9 - Anemia, unspecified Status: Chronic Assessment and Plan: Of chronic disease. hb is 7.8 Subjective Date/time seen: 06/02/20 12:22 Interval history: 74 year old female with significant past medical history of CHF, chronic kidney disease stage 4, diabetic peripheral neuropathy, hyperlipidemia, essential hypertension, diabetes presented the ED on 05/31/2020 with complains of generalized weakness and fevers. Complains of abdominal discomfort. and diarrhea. Pt creat is 3.8 today. covid is negative. Pt had Ecoli in her blood culture and urine culture. Pt has history of diverticular disease. Review of Systems Review of Systems: All systems reviewed & are unremarkable except as noted in HPI and below Exam Const: General: ill appearing Orientation/consciousness: oriented to person and oriented to place HENMT: Head: normocephalic Eyes: General: appearance normal, both eyes and all related structures Pupils: Equal, round and reactive pupils present Neck: Neck: normal visual inspection, full ROM and no lymphadenopathy Chest: Chest palpation & inspection: normal inspection of the chest Resp: Effort & Inspection: normal respiratory effort Auscultation: clear to auscultation bilaterally Percussion: percussion normal Cardio: Palpation: normal PMI Rate: regular rate Rhythm: regular rhythm GI: Inspection: normal to inspection Auscultation: normal bowel sounds Skin: General skin exam: normal color Lesions: no lesions Rashes: no rashes Trauma: no lacerations or abrasions Wounds: no wounds Hair: normal Nails: normal Neuro: General: oriented to person and oriented to place Cranial nerves: Yes Equal, round and reactive pupils present and Yes Normal hearing present Cognition (Neuro): normal cognition Speech: normal speech Gait exam (Neuro): Normal gait present Motor exam (neuro): 5/5 motor strength present throughout Sensory Exam: normal sensation Extrem: General: normal to inspection Right upper extremity: normal to inspection Left upper extremity: normal to inspection Left lower extremity: normal to inspection Psych: Appearance: grossly normal Mental Status: mental status grossly normal Speech and movement: Normal speech and movement present Affect: normal affect Attitude: cooperative Thought
--- NOTE | 2020-06-02 14:51 | PM.PNNEP ---
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 renal ultrasound wihtout obstruction urine lytes suggestive of prerenal azotemia follow trend repeat labs and UOP (2) Chronic kidney disease, stage 4 (severe): Code(s): N18.4 - Chronic kidney disease, stage 4 (severe) Status: Chronic Assessment and Plan: baseline creatinine runs ~ 1.7 - 2.2mg/dl in the last couple of years based on outpatient evaluation, thought to be secondary to HTN, DM, and vascular disease (3) Septic shock: Code(s): A41.9 - Sepsis, unspecified organism; R65.21 - Severe sepsis with septic shock Status: Acute Assessment and Plan: resolving possible urosepsis given + blood and urine cultures with E. coli on IV antibiotics follow hemodynamics (4) Anemia: Code(s): D64.9 - Anemia, unspecified Status: Chronic Assessment and Plan: partly due to CKD but worsened by NATE and acute illness/infection follow trend of H/H (5) Diabetes: Code(s): E11.9 - Type 2 diabetes mellitus without complications Status: Acute Assessment and Plan: follow accuchecks glycemic control Will continue to follow. Subjective Date/time seen: 06/02/20 14:51 Transferred out of ICU yesterday; remains hemodynamically stable at this time; blood and urine culture results noted; she otherwise appears to be doing better. Exam Narrative: Exam Narrative: General: WD/WN female in NAD Heart: normal S1 and S2; no rub Lungs: clear but decreased at the bases Abdomen: soft, nontender, nondistended, positive bowel sounds Extremities: no cyanosis or clubbing; 1+ edema Skin: warm and dry Objective Data Vital Signs Vital Signs: Vital Signs Temp Pulse Resp BP Pulse Ox 06/02/20 12:00 102 H 06/02/20 09:49 36.6 C 109 H 18 119/53 L 95 06/02/20 08:00 111 H 06/02/20 07:54 36.9 C 06/02/20 07:46 111 H 18 94 06/02/20 05:31 38.3 C H 06/02/20 05:30 38.3 C H 114 H 16 137/67 95 06/02/20 04:00 116 H 06/02/20 00:00 37.0 C 110 H 14 120/54 L 96 06/01/20 21:38 36.8 C 110 H 14 120/66 100 06/01/20 20:00 115 H 06/01/20 19:34 37.1 C 108 H 18 118/64 95 06/01/20 18:00 107 H 18 109/62 97 Intake/Output Intake/Output: Intake & Output 05/30/20 05/31/20 06/01/20 06/02/20 23:59 23:59 23:59 23:59 Intake Total 3150 1100 3110 Output Total 393 927 9130 Balance 2600 275 1960 Meds/Results Medications: Active Medications Generic Name Dose Route Start Last Admin Trade Name Freq PRN Reason Stop Dose Admin Acetaminophen 650 mg 06/01/20 01:09 06/02/20 12:04 Acetaminophen 325 Mg Tablet PO 650 mg Q4H PRN Administration Mild Pain (1-3) or Fever Aspirin 81 mg 06/01/20 09:00 06/02/20 08:41 Aspirin 81 Mg Enteric Tablet PO 81 mg DAILY JACKY Administration Dextrose 12.5 gm 05/31/20 20:59 Dextrose 50% 25 Gm/50 Ml Syringe IV PUSH PRN PRN Hypoglycemia Protocol Gabapentin 300 mg 05/31/20 21:45 06/02/20 12:05 Gabapentin 300 Mg Capsule PO 300 mg QID JACKY Administration Glimepiride 2 mg 06/01/20 09:00 06/02/20 08:41 Glimepiride 2 Mg Tablet PO 2 mg BID JACKY Administration Glucagon 1 mg 05/31/20 20:59 Glucagon For Inj 1 Mg Vial IM PRN PRN Hypoglycemia Protocol Glucose 15 gm 05/31/20 20:59 Glucose Oral Gel 15 Gm Of Glucse In 37.5 Gm Tube PO PRN PRN Hypoglycemia Protocol Heparin Sodium (Porcine) 5,000 units 06/01/20 09:00 06/02/20 08:41 Heparin Sodium 5,000 Units/Ml Vial SUB-Q 5,000 units Q12HR JACKY Admi
[2020-06-02 16:29] LABS: Glucose Point of Care 143 (65-105)
[2020-06-02 21:27] LABS: Glucose Point of Care 133 (65-105)
[2020-06-03] VITALS (10 sets, daily range): BP systolic 112–144; BP diastolic 54–69; PULSE 88–101; RESP 14–16; TEMP 36–37.3; O2SAT 95–100
[2020-06-03] MEDS: ACETAMINOPHEN 325 MG TABLET 650 MG PO (03:41)
[2020-06-03] MEDS: SODIUM BICARBONATE 8.4% 150 MEQ in WATER, STERILE FOR INJECTION 950 ML 75 MEQ IV CONT (05:25)
[2020-06-03 06:19] LABS: Hematocrit 24.4 % (37.0-47.0); Hemoglobin 7.8 g/dL (12.0-15.0); Mean Corpuscular Hemoglobin 27.2 pg (26-34); Platelet Count Result 153 k/mm3 (150-375); Red Blood Count 2.87 M/mm3 (4.2-5.4); Red Cell Distribution Width 17.5 % (11.5-14.5); White Blood Count 6.7 K/mm3 (4.5-10.0)
[2020-06-03 06:32] LABS: Anion Gap 6 mmol/L (8-16); Blood Urea Nitrogen 85 mg/dL (7-17); Calcium 7.5 mg/dL (8.4-10.2); Carbon Dioxide 32 mmol/L (22-30); Chloride 103 mmol/L (98-107); Estimated CRCL calculation 14 ml/min; Estimated Glomerular Filt Rate 13; Glucose 72 mg/dL (65-105); Potassium 3.2 mmol/L (3.4-5.0); Sodium 141 mmol/L (137-145)
[2020-06-03 07:30] LABS: Glucose Point of Care 60 (65-105)
[2020-06-03] MEDS: GLUCOSE ORAL GEL 15 GM OF GLUCSE IN 37.5 GM TUBE PO ×2 (07:30→07:55)
[2020-06-03 07:55] LABS: Glucose Point of Care 60 (65-105)
[2020-06-03 07:55] LABS: Glucose Point of Care 62 (65-105)
[2020-06-03 08:14] LABS: Glucose Point of Care 95 (65-105)
[2020-06-03] MEDS: ASPIRIN 81 MG ENTERIC TABLET PO (08:49)
[2020-06-03] MEDS: GABAPENTIN 300 MG CAPSULE PO ×4 (08:49→21:10)
[2020-06-03] MEDS: HEPARIN SODIUM 5,000 UNITS/ML VIAL 5000 UNITS SUB-Q ×2 (08:51→21:10)
--- NOTE | 2020-06-03 10:44 | PM.IMPN ---
Progress Note: A&P Assessment and Plan (1) Sepsis: Code(s): A41.9 - Sepsis, unspecified organism Status: Acute Assessment and Plan: The patient was started on Rocephin. Pt had Ecoli in her blood culture and urine culture. (2) UTI (urinary tract infection): Code(s): N39.0 - Urinary tract infection, site not specified Status: Acute Assessment and Plan: Patient is on Rocephin. Pt had Ecoli in her blood culture and urine culture. (3) Hyperlipidemia, unspecified: Code(s): E78.5 - Hyperlipidemia, unspecified Status: Chronic Assessment and Plan: Simvastatin at hold at this time. (4) Hypertension, essential: Code(s): I10 - Essential (primary) hypertension Status: Chronic Assessment and Plan: Antihypertensive medications due to her low blood pressure. Can restart tomorrow. (5) Chronic kidney disease, stage 4 (severe): Code(s): N18.4 - Chronic kidney disease, stage 4 (severe) Status: Chronic Assessment and Plan: It appears to be worsening. She has chronic renal failure stage 3-4, creat is 3.5. nephrology on the case. Pt is on sodium bicarbonate drip. Nephrology rounding. Continue to watch BMP. Baseline creat is 2.2. Renal us ordered CT abdo not orderd today. (6) Type 2 diabetes mellitus with hyperglycemia: Code(s): E11.65 - Type 2 diabetes mellitus with hyperglycemia Status: Chronic Assessment and Plan: Accu-Cheks AC and HS. (7) CHF (congestive heart failure), NYHA class I: Code(s): I50.9 - Heart failure, unspecified Status: Chronic Assessment and Plan: Lasix is on hold at this time. And lisinopril is on hold. (8) Anemia: Code(s): D64.9 - Anemia, unspecified Status: Chronic Assessment and Plan: Of chronic disease. hb is 7.8 (9) Diarrhea: Code(s): R19.7 - Diarrhea, unspecified Status: Acute Assessment and Plan: Explained to pt that we are collecting cdiff assay today to check for cdiff colitis. And that her diarrhea maybe related to antibiotics than a diverticular flare. Subjective Date/time seen: 06/03/20 10:44 Interval history: 74 year old female with significant past medical history of CHF, chronic kidney disease stage 4, diabetic peripheral neuropathy, hyperlipidemia, essential hypertension, diabetes presented the ED on 05/31/2020 with complains of generalized weakness and fevers. Complains of abdominal discomfort. and diarrhea. Pt creat is 3.5 today. covid is negative. Pt had Ecoli in her blood culture and urine culture. Pt has history of diverticular disease requesting scan of the abdomen. Pt having lot of watery stool for 2 days cdiff is ordered, also explained that i did not order CT abdomen and pelvis with contrast today as her creat is high. Review of Systems Review of Systems: All systems reviewed & are unremarkable except as noted in HPI and below Exam Const: General: ill appearing Orientation/consciousness: oriented to person and oriented to place Chest: Chest palpation & inspection: normal inspection of the chest Resp: Effort & Inspection: normal respiratory effort Auscultation: clear to auscultation bilaterally Cardio: Palpation: normal PMI Rate: regular rate Rhythm: regular rhythm GI: Inspection: normal to inspection Auscultation: normal bowel sounds Skin: General skin exam: normal color Lesions: no lesions Rashes: no rashes Trauma: no lacerations or abrasions Wounds: no wounds Hair: normal Nails: normal Neuro: General: oriented to person and oriented to place Cranial nerves: Yes Equal, round and reactive pupils present and Yes Normal hearing present Cognition (Neuro): normal cognition Speech: normal speech Gait exam (Neuro): Normal gait present Motor exam (neuro): 5/5 motor strength present throughout Sensory Exam: normal sensation Extrem: General: normal to inspection Right upper extremity: normal to inspec
--- NOTE | 2020-06-03 11:49 | PCPTNOTE ---
The PT treatment was not completed today due to patient refusal. Will continue per Plan of Care frequency and duration.
[2020-06-03 12:08] LABS: Glucose Point of Care 108 (65-105)
--- NOTE | 2020-06-03 14:51 | PM.PNNEP ---
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 baseline seems around 2. (2) Chronic kidney disease, stage 4 (severe): Code(s): N18.4 - Chronic kidney disease, stage 4 (severe) Status: Chronic Assessment and Plan: baseline creatinine runs ~ 1.7 - 2.2mg/dl in the last couple of years based on outpatient evaluation, thought to be secondary to HTN, DM, and vascular disease (3) Septic shock: Code(s): A41.9 - Sepsis, unspecified organism; R65.21 - Severe sepsis with septic shock Status: Acute Assessment and Plan: resolving possible urosepsis given + blood and urine cultures with E. coli on ceftriaxone. (4) Anemia: Code(s): D64.9 - Anemia, unspecified Status: Chronic Assessment and Plan: partly due to CKD but worsened by NATE and acute illness/infection hb 7.8, same as yesterday. (5) Diabetes: Code(s): E11.9 - Type 2 diabetes mellitus without complications Status: Acute Assessment and Plan: follow accuchecks glycemic control Will continue to follow. (6) Metabolic acidosis: Code(s): E87.2 - Acidosis Status: Acute Assessment and Plan: resolved. stop the bicarb drip. Subjective Date/time seen: 06/03/20 14:51 Interval history: alert, feels okay. no cp or sob. generally weak. no pain with urination. Review of Systems Cardiovascular: Cardiovascular: Reports no additional cardiovascular complaints Respiratory: Respiratory: Reports no additional respiratory complaints Gastrointestinal: Gastrointestinal: Reports no additional gastrointestinal complaints Genitourinary: Genitourinary: Reports no additional female genitourinary complaints Exam Narrative: Exam Narrative: General: WD/WN female in NAD Heart: normal S1 and S2; no rub or gallop Lungs: clear but decreased at the bases Abdomen: soft, nontender, nondistended, positive bowel sounds Extremities: 1+ edema Skin: no rash Objective Data Vital Signs Vital Signs: Vital Signs - 24 hr 06/02/20 15:51 06/02/20 16:00 06/02/20 17:13 Temperature 36.1 C L 37.6 C Pulse Rate 97 97 Respiratory Rate 18 Blood Pressure 117/65 Pulse Oximetry 98 06/02/20 19:45 06/02/20 20:00 06/03/20 00:00 Temperature 37.3 C Pulse Rate 104 H 104 H 101 H Respiratory Rate 12 Blood Pressure 115/52 L Pulse Oximetry 96 06/03/20 01:06 06/03/20 04:00 06/03/20 06:25 Temperature 37.3 C 36.9 C Pulse Rate 100 100 98 Respiratory Rate 14 14 Blood Pressure 112/54 L 117/58 L Pulse Oximetry 98 96 06/03/20 08:00 06/03/20 12:00 Temperature Pulse Rate 97 92 Respiratory Rate Blood Pressure Pulse Oximetry Intake/Output Intake/Output: Intake & Output 05/31/20 06/01/20 06/02/20 06/03/20 23:59 23:59 23:59 23:59 Intake Total 3150 1100 3950 1840 Output Total 906 923 7193 950 Balance 2600 275 2650 890 Meds/Results Medications: Active Medications Generic Name Dose Route Start Last Admin Trade Name Freq PRN Reason Stop Dose Admin Acetaminophen 650 mg 06/01/20 01:09 06/03/20 03:41 Acetaminophen 325 Mg Tablet PO 650 mg Q4H PRN Administration Mild Pain (1-3) or Fever Aspirin 81 mg 06/01/20 09:00 06/03/20 08:49 Aspirin 81 Mg Enteric Tablet PO 81 mg DAILY JACKY Administration Dextrose 12.5 gm 05/31/20 20:59 Dextrose 50% 25 Gm/50 Ml Syringe IV PUSH PRN PRN Hypoglycemia Protocol Gabapentin 300 mg 05/31/20 21:45 06/03/20 13:22 Gabapentin
[2020-06-03] MEDS: NEOMYCIN/POLYMYXIN/BACITRACIN OINTMENT PACKET 1 PACKET (16:28)
[2020-06-03 17:27] LABS: Glucose Point of Care 128 (65-105)
[2020-06-03 21:36] LABS: Glucose Point of Care 139 (65-105)
[2020-06-04] VITALS (8 sets, daily range): BP systolic 132–151; BP diastolic 63–95; PULSE 87–104; RESP 16–90; TEMP 36.1–37.6; O2SAT 20–97
[2020-06-04] MEDS: ACETAMINOPHEN 325 MG TABLET 650 MG PO ×2 (04:35→17:38)
[2020-06-04 05:58] LABS: Hematocrit 27.3 % (37.0-47.0); Hemoglobin 8.5 g/dL (12.0-15.0); Mean Corpuscular HGB Conc 31.1 g/dl (32-36); Mean Corpuscular Hemoglobin 26.8 pg (26-34); Mean Corpuscular Volume 86.1 fl (80-100); Mean Platelet Volume 10.4 fl (7.4-10.4); Platelet Count Result 169 k/mm3 (150-375); Red Blood Count 3.17 M/mm3 (4.2-5.4); Red Cell Distribution Width 17.5 % (11.5-14.5); White Blood Count 6.7 K/mm3 (4.5-10.0)
[2020-06-04 06:17] LABS: Albumin Level 2.9 g/dL (3.5-5.1); Anion Gap 5 mmol/L (8-16); Blood Urea Nitrogen 75 mg/dL (7-17); Calcium 7.7 mg/dL (8.4-10.2); Carbon Dioxide 34 mmol/L (22-30); Chloride 103 mmol/L (98-107); Estimated CRCL calculation 15 ml/min; Estimated Glomerular Filt Rate 13; Glucose 128 mg/dL (65-105); Phosphorus 3.8 mg/dL (2.5-4.5); Potassium 3.6 mmol/L (3.4-5.0); Sodium 142 mmol/L (137-145)
[2020-06-04] MEDS: GABAPENTIN 300 MG CAPSULE PO ×4 (07:55→21:05)
[2020-06-04] MEDS: HEPARIN SODIUM 5,000 UNITS/ML VIAL 5000 UNITS SUB-Q ×2 (07:56→21:05)
[2020-06-04] MEDS: ASPIRIN 81 MG ENTERIC TABLET PO (07:56)
[2020-06-04] MEDS: GLIMEPIRIDE 2 MG TABLET PO ×2 (07:56→16:38)
[2020-06-04 08:32] LABS: Glucose Point of Care 120 (65-105)
--- NOTE | 2020-06-04 10:54 | PM.PNNEP ---
Progress Note: A&P Assessment and Plan (1) NATE (acute kidney injury): Code(s): N17.9 - Acute kidney failure, unspecified Status: Acute Assessment and Plan: due multifactorial ATN: - hypotension/shock - infection (+ blood and urine cultures) - lisinopril and diuretic use [employer] - prerenal factors renal ultrasound without obstruction urine lytes suggestive of prerenal azotemia UA is bland creatinine is down to 3.4 (2) Chronic kidney disease, stage 4 (severe): Code(s): N18.4 - Chronic kidney disease, stage 4 (severe) Status: Chronic Assessment and Plan: baseline creatinine runs ~ 1.7 - 2.2mg/dl in the last couple of years based on outpatient evaluation, thought to be secondary to HTN, DM, and vascular disease (3) Septic shock: Code(s): A41.9 - Sepsis, unspecified organism; R65.21 - Severe sepsis with septic shock Status: Acute Assessment and Plan: resolving possible urosepsis given + blood and urine cultures with E. coli on ceftriaxone. (4) Anemia: Code(s): D64.9 - Anemia, unspecified Status: Chronic Assessment and Plan: partly due to CKD but worsened by NATE and acute illness/infection hb 8.5 today (5) Diabetes: Code(s): E11.9 - Type 2 diabetes mellitus without complications Status: Acute Assessment and Plan: follow accuchecks glycemic control Will continue to follow. (6) Metabolic acidosis: Code(s): E87.2 - Acidosis Status: Acute Assessment and Plan: resolved. Subjective Date/time seen: 06/04/20 10:54 Interval history: alert, feels weak. up in a chair earlier. Review of Systems Cardiovascular: Cardiovascular: Reports no additional cardiovascular complaints Respiratory: Respiratory: Reports no additional respiratory complaints Gastrointestinal: Gastrointestinal: Reports no additional gastrointestinal complaints Genitourinary: Genitourinary: Reports no additional female genitourinary complaints Exam Narrative: Exam Narrative: General: WD/WN female in NAD Heart: normal S1 and S2; no rub or gallop Lungs: clear but decreased at the bases Abdomen: soft, nontender, nondistended, positive bowel sounds Extremities: 1+ edema Skin: no rash or sq nodules Objective Data Vital Signs Vital Signs: Vital Signs - 24 hr 06/03/20 12:00 06/03/20 15:00 06/03/20 16:00 Temperature 36.8 C Pulse Rate 92 88 91 Respiratory Rate 16 Blood Pressure 136/69 Pulse Oximetry 100 06/03/20 19:54 06/03/20 20:00 06/04/20 00:00 Temperature 36.0 C L 36.4 C L Pulse Rate 95 92 90 Respiratory Rate 16 16 Blood Pressure 144/60 H 144/66 H Pulse Oximetry 95 93 06/04/20 04:00 06/04/20 07:56 06/04/20 08:00 Temperature 36.4 C 36.3 C L Pulse Rate 95 91 Respiratory Rate 20 20 Blood Pressure 132/66 145/68 H Pulse Oximetry 96 93 92 Intake/Output Intake/Output: Intake & Output 06/01/20 06/02/20 06/03/20 06/04/20 23:59 23:59 23:59 23:59 Intake Total 1100 3950 3300 450 Output Total 825 1300 1700 800 Balance 275 2650 1600 -350 Meds/Results Medications: Active Medications Generic Name Dose Route Start Last Admin Trade Name Cas PRN Reason Stop Dose Admin Acetaminophen 650 mg 06/01/20 01:09 06/04/20 04:35 Acetaminophen 325 Mg Tablet PO 650 mg Q4H PRN Administration Mild Pain (1-3) or Fever Aspirin 81 mg 06/01/20 09:00 06/04/20 07:56 Aspirin 81 Mg Enteric Tablet PO 81 mg DAILY JACKY Administration Dextrose 12.5 gm 05/31/20 20:59 Dextrose 50% 25 Gm/50 Ml Syringe IV PUSH PRN PRN Hypoglycemia Protocol Gabapentin 300 mg 05/31/20 21:45 06/04/20 07:55 Gabapentin 300 Mg Capsule PO 300 mg QID JACKY Administration Glimepiride 2 mg 06/01/20 09:00 06/04/20 07:56 Glimepiride 2 Mg Tablet PO 2 mg BID JACKY Administration Glucagon 1 mg 05/31
[2020-06-04 11:48] LABS: Glucose Point of Care 190 (65-105)
--- NOTE | 2020-06-04 16:24 | PM.IMPN ---
Progress Note: A&P Assessment and Plan (1) Sepsis: Code(s): A41.9 - Sepsis, unspecified organism Status: Acute Assessment and Plan: Patient with septicemia from UTI with EColi. Blood and Urine Cx both growing Ecoli sensitive to Rocephin. Will increase to Rocephin to 2gm given the bactrermia. (2) UTI (urinary tract infection): Code(s): N39.0 - Urinary tract infection, site not specified Status: Acute Assessment and Plan: As above. Pt had Ecoli in her blood culture and urine culture. (3) NATE (acute kidney injury): Code(s): N17.9 - Acute kidney failure, unspecified Status: Acute Assessment and Plan: Cr 3.8 on admisison. Baseline 1.7-2.2. Renal US normal so possibly DM related renal disease. Cr trending down now to 3.4. Nephrology following. (4) Chronic kidney disease, stage 4 (severe): Code(s): N18.4 - Chronic kidney disease, stage 4 (severe) Status: Chronic Assessment and Plan: Baseline 1.7-2.2. As above. (5) Hypertension, essential: Code(s): I10 - Essential (primary) hypertension Status: Chronic Assessment and Plan: Patient's blood pressure was reviewed on 06/04 Blood pressure remains well controlled. Will continue to monitor off medications (6) Type 2 diabetes mellitus with hyperglycemia: Code(s): E11.65 - Type 2 diabetes mellitus with hyperglycemia Status: Chronic Assessment and Plan: A1c 6.5. The patient's blood glucose was reviewed on 06/04 Glucose remains well controlled. Continue AccuCheks covering with sliding scale. Hypoglycemia protocol available as needed. Continue current medications with Amaryl. (7) CHF (congestive heart failure), NYHA class I: Code(s): I50.9 - Heart failure, unspecified Status: Chronic Assessment and Plan: Patient has hx of CHF. Lasix and lisinopril on hold related to her renal failure. She is positive about 7L. Consider diuresis when okay with nephrology. (8) Anemia: Code(s): D64.9 - Anemia, unspecified Status: Chronic Assessment and Plan: Hgb 10.7 on admission but dropped to the 7-8 range. Check iron studies (9) Diarrhea: Code(s): R19.7 - Diarrhea, unspecified Status: Acute Assessment and Plan: CDiff assay cancelled since stool is now formed. Patient's loose stools related to antibiotics. (10) Hyperlipidemia, unspecified: Code(s): E78.5 - Hyperlipidemia, unspecified Status: Chronic Assessment and Plan: Simvastatin at hold at this time. (11) DVT prophylaxis: Code(s): Z29.9 - Encounter for prophylactic measures, unspecified Status: Acute Assessment and Plan: Heparin Subjective Date/time seen: 06/04/20 16:24 Interval history: Date of service 06/04 74yo female with hx of CHF, CKD stage 4, diabetic peripheral neuropathy, and HTN presented to the ED on 05/31/2020 with complains of generalized weakness and fevers. Assuming care. Chart reviewed. She slept well. No SOB. Has a cough that is dry. Eating okay. She feels very weak. No n/v. She had been having stomach pain with nausea at times for the past few months ususally associated with food. Exam Narrative: Exam Narrative: AF 97.6 137/95 95 20 90% RA Gen - NARD Chest - decreased BS bibasilar, nml RR CV - RRR S1/S2; tele showing no significant dysrhythmias Abd - soft, NT/ND, +BS - lange secured draining clear yellow urine Ext - trace-1+ edema Psych - depressed mood. Skin - warm and dry Objective Data Vital Signs Vital Signs: Vital Signs - 24 hr 06/03/20 19:54 06/03/20 20:00 06/04/20 00:00 Temperature 96.8 F L 97.5 F L Pulse Rate 95 92 90 Respiratory Rate 16 16 Blood Pressure 144/60 H 144/66 H Pulse Oximetry 95 93 06/04/20 04:00 06/04/20 07:56 06/04/20 08:00 Temperature 97.6 F 97.3 F L Pulse Rate 95 90 Respiratory Rate 20 20
[2020-06-04 16:48] LABS: Glucose Point of Care 143 (65-105)
[2020-06-04] MEDS: FAMOTIDINE 20 MG TABLET PO (21:05)
[2020-06-04 21:37] LABS: Glucose Point of Care 191 (65-105)
[2020-06-05] VITALS (8 sets, daily range): BP systolic 136–148; BP diastolic 61–69; PULSE 76–105; RESP 16–18; TEMP 35.9–36.6; O2SAT 96–97
[2020-06-05 05:52] LABS: Basophils Percent Auto 0.3 % (0.2-1.2); Eosinophils Absolute Auto 0.1 K/mm3 (0-0.3); Eosinophils Percent Auto 0.9 % (0-4.4); Hematocrit 26.1 % (37.0-47.0); Hemoglobin 7.9 g/dL (12.0-15.0); Immature Granulocyte Absolute 0.14 K/mm3 (0.00-0.031); Immature Granulocyte Percent A 1.9 % (0-0.5); Lymphocytes Absolute Auto 1.72 K/mm3 (0.9-3.2); Lymphocytes Percent Auto 22.8 % (18.3-44.2); Mean Corpuscular HGB Conc 30.3 g/dl (32-36); Mean Corpuscular Hemoglobin 26.2 pg (26-34); Mean Corpuscular Volume 86.4 fl (80-100); Mean Platelet Volume 10.5 fl (7.4-10.4); Monocytes Absolute Auto 0.9 K/mm3 (0.1-0.6); Monocytes Percent Auto 12.3 % (2.6-8.5); Neutrophils Absolute Auto 4.7 K/mm3 (1.3-6.7); Neutrophils Percent Auto 61.8 % (45.5-73.1); Platelet Count Result 170 k/mm3 (150-375); Red Blood Count 3.02 M/mm3 (4.2-5.4); Red Cell Distribution Width 17.3 % (11.5-14.5); White Blood Count 7.6 K/mm3 (4.5-10.0)
[2020-06-05 06:03] LABS: Alanine Aminotransferase 20 U/L (4-35); Albumin Level 2.8 g/dL (3.5-5.1); Alkaline Phosphatase 96 U/L (38-126); Anion Gap 5 mmol/L (8-16); Aspartate Amino Transferase 30 U/L (14-36); Bilirubin,Total 0.2 mg/dL (0.2-1.3); Blood Urea Nitrogen 71 mg/dL (7-17); Calcium 7.6 mg/dL (8.4-10.2); Carbon Dioxide 30 mmol/L (22-30); Chloride 105 mmol/L (98-107); Estimated CRCL calculation 16 ml/min; Estimated Glomerular Filt Rate 15; Glucose 129 mg/dL (65-105); Magnesium 1.9 mg/dL (1.6-2.3); Potassium 3.5 mmol/L (3.4-5.0); Sodium 140 mmol/L (137-145)
[2020-06-05 06:37] LABS: Hypochromasia 1+ (NORMAL); Platelet Estimate Adequate (Adequate)
[2020-06-05 06:38] LABS: Stomatocytes 1+ (NORMAL)
[2020-06-05 07:06] LABS: Iron 20 ug/dL (37-170)
[2020-06-05 07:15] LABS: Percent Iron Saturation 9 % (20-50)
[2020-06-05 07:49] LABS: Glucose Point of Care 112 (65-105)
[2020-06-05 08:49] LABS: Folic Acid 5.8 ng/mL (2.76->20)
[2020-06-05] MEDS: GABAPENTIN 300 MG CAPSULE PO ×4 (09:50→20:54)
[2020-06-05] MEDS: HEPARIN SODIUM 5,000 UNITS/ML VIAL 5000 UNITS SUB-Q ×2 (09:50→20:54)
[2020-06-05] MEDS: GLIMEPIRIDE 2 MG TABLET PO ×2 (09:50→17:34)
[2020-06-05] MEDS: ASPIRIN 81 MG ENTERIC TABLET PO (09:50)
[2020-06-05] MEDS: FAMOTIDINE 20 MG TABLET PO ×2 (09:52→20:54)
[2020-06-05 12:03] LABS: Glucose Point of Care 155 (65-105)
[2020-06-05] MEDS: ACETAMINOPHEN 325 MG TABLET 650 MG PO ×2 (14:42→20:54)
[2020-06-05 16:57] LABS: Glucose Point of Care 111 (65-105)
--- NOTE | 2020-06-05 18:04 | P.PNNP_ITS ---
Progress Note: A&P Assessment and Plan (1) NATE (acute kidney injury): Code(s): N17.9 - Acute kidney failure, unspecified Status: Acute Assessment and Plan: * due multifactorial ATN: - hypotension/shock - infection (+ blood and urine cultures) - lisinopril and diuretic use [employer] - prerenal factors * renal ultrasound without obstruction * urine lytes suggestive of prerenal azotemia * UA is bland * creatinine is down to 3.1 * Continue to observe. * She seems to be doing better. Consider discharge at any time when other issues are resolved (2) Chronic kidney disease, stage 4 (severe): Code(s): N18.4 - Chronic kidney disease, stage 4 (severe) Status: Chronic Assessment and Plan: * baseline creatinine runs ~ 1.7 - 2.2mg/dl in the last couple of years * based on outpatient evaluation, thought to be secondary to HTN, DM, and vascular disease (3) Septic shock: Code(s): A41.9 - Sepsis, unspecified organism; R65.21 - Severe sepsis with septic shock Status: Acute Assessment and Plan: * resolving * possible urosepsis given + blood and urine cultures with E. coli * on ceftriaxone still (4) Anemia: Code(s): D64.9 - Anemia, unspecified Status: Chronic Assessment and Plan: * partly due to CKD but worsened by NATE and acute illness/infection * hb bouncing around between 7.8 and 8.5. (5) Diabetes: Code(s): E11.9 - Type 2 diabetes mellitus without complications Status: Acute Assessment and Plan: * follow accuchecks * glycemic control\ (6) Metabolic acidosis: Code(s): E87.2 - Acidosis Status: Acute Assessment and Plan: resolved. Subjective Date/time seen: 06/05/20 18:04 Interval history: alert, feels better. She walked today she says. is in the room. Exam Narrative: Exam Narrative: General: WD/WN female in NAD Heart: normal S1 and S2; no rub Lungs: clear Abdomen: soft, nontender, nondistended, positive bowel sounds Extremities: 1+ edema Skin: no rash Objective Data Vital Signs Vital Signs: Vital Signs - 24 hr 06/04/20 20:00 06/04/20 21:05 06/05/20 00:00 Temperature 37.6 C 36.9 C Pulse Rate 104 H 82 Respiratory Rate 20 Blood Pressure 138/63 Pulse Oximetry 92 06/05/20 04:00 06/05/20 05:59 06/05/20 08:00 Temperature 35.9 C L Pulse Rate 76 83 81 Respiratory Rate 18 Blood Pressure 136/68 Pulse Oximetry 97 06/05/20 12:00 06/05/20 14:00 06/05/20 16:00 Temperature 36.2 C L Pulse Rate 105 H 83 84 Respiratory Rate 16 Blood Pressure 140/69 Pulse Oximetry 97 Intake/Output Intake/Output: Intake & Output 06/02/20 06/03/20 06/04/20 06/05/20 23:59 23:59 23:59 23:59 Intake Total 3950 3300 1540 1465 Output Total 1300 0781 824 3218 Balance 2650 1600 740 1135 Meds/Results Medications: Active Medications Generic Name Dose Route Start Last Admin Trade Name Freq PRN Reason Stop Dose Admin Acetaminophen 650 mg 06/01/20 01:09 06/05/20 14:42 Acetaminophen 325 Mg T
--- NOTE | 2020-06-05 18:04 | PM.PNNEP ---
Progress Note: A&P Assessment and Plan (1) NATE (acute kidney injury): Code(s): N17.9 - Acute kidney failure, unspecified Status: Acute Assessment and Plan: due multifactorial ATN: - hypotension/shock - infection (+ blood and urine cultures) - lisinopril and diuretic use [employer] - prerenal factors renal ultrasound without obstruction urine lytes suggestive of prerenal azotemia UA is bland creatinine is down to 3.1 Continue to observe. She seems to be doing better. Consider discharge at any time when other issues are resolved (2) Chronic kidney disease, stage 4 (severe): Code(s): N18.4 - Chronic kidney disease, stage 4 (severe) Status: Chronic Assessment and Plan: baseline creatinine runs ~ 1.7 - 2.2mg/dl in the last couple of years based on outpatient evaluation, thought to be secondary to HTN, DM, and vascular disease (3) Septic shock: Code(s): A41.9 - Sepsis, unspecified organism; R65.21 - Severe sepsis with septic shock Status: Acute Assessment and Plan: resolving possible urosepsis given + blood and urine cultures with E. coli on ceftriaxone still (4) Anemia: Code(s): D64.9 - Anemia, unspecified Status: Chronic Assessment and Plan: partly due to CKD but worsened by NATE and acute illness/infection hb bouncing around between 7.8 and 8.5. (5) Diabetes: Code(s): E11.9 - Type 2 diabetes mellitus without complications Status: Acute Assessment and Plan: follow accuchecks glycemic control\ (6) Metabolic acidosis: Code(s): E87.2 - Acidosis Status: Acute Assessment and Plan: resolved. Subjective Date/time seen: 06/05/20 18:04 Interval history: alert, feels better. She walked today she says. is in the room. Exam Narrative: Exam Narrative: General: WD/WN female in NAD Heart: normal S1 and S2; no rub Lungs: clear Abdomen: soft, nontender, nondistended, positive bowel sounds Extremities: 1+ edema Skin: no rash Objective Data Vital Signs Vital Signs: Vital Signs - 24 hr 06/04/20 20:00 06/04/20 21:05 06/05/20 00:00 Temperature 37.6 C 36.9 C Pulse Rate 104 H 82 Respiratory Rate 20 Blood Pressure 138/63 Pulse Oximetry 92 06/05/20 04:00 06/05/20 05:59 06/05/20 08:00 Temperature 35.9 C L Pulse Rate 76 83 81 Respiratory Rate 18 Blood Pressure 136/68 Pulse Oximetry 97 06/05/20 12:00 06/05/20 14:00 06/05/20 16:00 Temperature 36.2 C L Pulse Rate 105 H 83 84 Respiratory Rate 16 Blood Pressure 140/69 Pulse Oximetry 97 Intake/Output Intake/Output: Intake & Output 06/02/20 06/03/20 06/04/20 06/05/20 23:59 23:59 23:59 23:59 Intake Total 3950 3300 1540 1465 Output Total 1300 8571 623 0337 Balance 2650 1600 740 1136 Meds/Results Medications: Active Medications Generic Name Dose Route Start Last Admin Trade Name Freq PRN Reason Stop Dose Admin Acetaminophen 650 mg 06/01/20 01:09 06/05/20 14:42 Acetaminophen 325 Mg Tablet PO 650 mg Q4H PRN Administration Mild Pain (1-3) or Fever Aspirin 81 mg 06/01/20 09:00 06/05/20 09:50 Aspirin 81 Mg Enteric Tablet PO 81 mg DAILY JACKY Administration Dextrose 12.5 gm 05/31/20 20:59 Dextrose 50% 25 Gm/50 Ml Syringe IV PUSH PRN PRN Hypoglycemia Protocol Famotidine 20 mg 06/04/20 21:00 06/05/20 09:52 Famotidine 20 Mg Tablet PO 20 mg Q12HR JACKY Administration Gabapentin 300 mg 05/31/20 21:45 06/05/20 17:34 Gabapentin 300 Mg Capsule PO 300 mg QID JACKY Administration Glimepiride 2 mg 06/01/20 09:00 06/05/20 17:34 Glimepiride 2 Mg Tablet PO 2 mg BID JACKY Administration Glucagon 1 mg 05/31/20 20:59 Glucagon For Inj 1 Mg Vial IM PRN PRN Hypoglycemia Protocol Glucose 15 gm 05/31/20 20:59 06/03/20 07:55
--- NOTE | 2020-06-05 18:13 | PM.IMPN ---
Progress Note: A&P Assessment and Plan (1) Sepsis: Code(s): A41.9 - Sepsis, unspecified organism Status: Acute Assessment and Plan: Patient with septicemia from UTI with EColi. Blood and Urine Cx both growing Ecoli sensitive to Rocephin. Continue Rocephin to 2gm given the bactrermia. Remove Lange in the morning. (2) UTI (urinary tract infection): Code(s): N39.0 - Urinary tract infection, site not specified Status: Acute Assessment and Plan: As above. Pt had Ecoli in her blood culture and urine culture. (3) NATE (acute kidney injury): Code(s): N17.9 - Acute kidney failure, unspecified Status: Acute Assessment and Plan: Cr 3.8 on admisison. Baseline 1.7-2.2. Renal US normal so possibly DM related renal disease. Cr trending down now to 3.1. Nephrology following. (4) Chronic kidney disease, stage 4 (severe): Code(s): N18.4 - Chronic kidney disease, stage 4 (severe) Status: Chronic Assessment and Plan: Baseline 1.7-2.2. As above. (5) Hypertension, essential: Code(s): I10 - Essential (primary) hypertension Status: Chronic Assessment and Plan: Patient's blood pressure was reviewed on 06/05 Blood pressure remains well controlled. Will continue to monitor off medications (6) Type 2 diabetes mellitus with hyperglycemia: Code(s): E11.65 - Type 2 diabetes mellitus with hyperglycemia Status: Chronic Assessment and Plan: A1c 6.5. The patient's blood glucose was reviewed on 06/05 Glucose remains well controlled. Continue AccuCheks covering with sliding scale. Hypoglycemia protocol available as needed. Continue current medications with Amaryl. (7) CHF (congestive heart failure), NYHA class I: Code(s): I50.9 - Heart failure, unspecified Status: Chronic Assessment and Plan: Patient has hx of CHF. Lasix and lisinopril on hold related to her renal failure. She is positive about 6.7L. Consider diuresis when okay with nephrology. (8) Anemia: Code(s): D64.9 - Anemia, unspecified Status: Chronic Assessment and Plan: Hgb 10.7 on admission but dropped to the 7-8 range. B12 and Folate normal. Iron 20 with TIBC 218 and 9% saturation. Monitor. (9) Diarrhea: Code(s): R19.7 - Diarrhea, unspecified Status: Acute Assessment and Plan: CDiff assay cancelled since stool is now formed. Patient's loose stools related to antibiotics. (10) Hyperlipidemia, unspecified: Code(s): E78.5 - Hyperlipidemia, unspecified Status: Chronic Assessment and Plan: LFTs normal. Resume Simvastatin. (11) DVT prophylaxis: Code(s): Z29.9 - Encounter for prophylactic measures, unspecified Status: Acute Assessment and Plan: Heparin Subjective Date/time seen: 06/05/20 18:13 Interval history: Date of service 06/05 74yo female with hx of CHF, CKD stage 4, diabetic peripheral neuropathy, and HTN presented to the ED on 05/31/2020 with complains of generalized weakness and fevers. Feels better today. Eating okay. Up walking in the halls essentially unassisted. No CP or SOB. Concerned about the edema. present in the room with patient permission Exam Narrative: Exam Narrative: AF 97.1 140/69 84 16 97% RA Gen - NARD lying semi-recumbent in bed Chest - left base crackles o/w clear, nmlRR CV - RRR S1/S2; tele showing no significant dysrhythmias Abd - soft, NT/ND, +BS - lange secured draining clear yellow urine Ext - trace diffuse edema Psych - in good spirits today; more animated Skin - warm and dry Objective Data Vital Signs Vital Signs: Vital Signs - 24 hr 06/04/20 20:00 06/04/20 21:05 06/05/20 00:00 Temperature 99.6 F 98.4 F Pulse Rate 104 H 82 Respiratory Rate 20 Blood Pressure 138/63 Pulse Oximetry 92 06/05/20 04:00 06/05/20 05:59 06/05/20 08:00 Temperature
[2020-06-05 21:11] LABS: Glucose Point of Care 156 (65-105)
[2020-06-06 04:17] VITALS: BP 137/58; PULSE 84; RESP 17; TEMP 36.9; O2SAT 96
[2020-06-06 06:15] LABS: Albumin Level 2.7 g/dL (3.5-5.1); Anion Gap 3 mmol/L (8-16); Blood Urea Nitrogen 65 mg/dL (7-17); Calcium 7.8 mg/dL (8.4-10.2); Carbon Dioxide 31 mmol/L (22-30); Chloride 106 mmol/L (98-107); Estimated CRCL calculation 17 ml/min; Estimated Glomerular Filt Rate 16; Glucose 135 mg/dL (65-105); Phosphorus 3.7 mg/dL (2.5-4.5); Potassium 3.3 mmol/L (3.4-5.0); Sodium 140 mmol/L (137-145)
[2020-06-06 07:39] LABS: Glucose Point of Care 126 (65-105)
[2020-06-06] MEDS: ASPIRIN 81 MG ENTERIC TABLET PO (08:35)
[2020-06-06] MEDS: CHOLECALCIFEROL 1,000 UNITS TABLET 2000 UNITS PO (08:35)
[2020-06-06] MEDS: GLIMEPIRIDE 2 MG TABLET PO ×2 (08:35→18:08)
[2020-06-06] MEDS: SIMVASTATIN 20 MG TABLET PO (08:35)
[2020-06-06] MEDS: MULTIVITAMINS THERAPEUTIC TAB (*BKC) 1 TABLET PO (08:35)
[2020-06-06] MEDS: GABAPENTIN 300 MG CAPSULE PO ×4 (08:35→20:44)
[2020-06-06] MEDS: FAMOTIDINE 20 MG TABLET PO ×2 (08:35→20:44)
[2020-06-06] MEDS: HEPARIN SODIUM 5,000 UNITS/ML VIAL 5000 UNITS SUB-Q ×2 (08:36→20:44)
--- NOTE | 2020-06-06 10:25 | PM.IMPN ---
Progress Note: A&P Assessment and Plan (1) Sepsis: Code(s): A41.9 - Sepsis, unspecified organism Status: Acute Assessment and Plan: Patient with septicemia from UTI with EColi. Blood and Urine Cx both growing Ecoli sensitive to Rocephin. Continue Rocephin to 2gm given the bacteremia. Barbosa removed. She is feeling worse today with cough. Will follow up later today. Patietn seen later in the day. Still with cough ans still feels poorly. Bob check CXR. Monitor for urine retention. CXR showing small bilateral pleural effusions with bibasilar opacities which could represent atelectasis or less likely pneumonia. (2) UTI (urinary tract infection): Code(s): N39.0 - Urinary tract infection, site not specified Status: Acute Assessment and Plan: As above. Pt had Ecoli in her blood culture and urine culture. (3) NATE (acute kidney injury): Code(s): N17.9 - Acute kidney failure, unspecified Status: Acute Assessment and Plan: Cr 3.8 on admisison. Baseline 1.7-2.2. Renal US normal so possibly DM related renal disease. Cr trending down now to 2.8. Nephrology following. (4) Chronic kidney disease, stage 4 (severe): Code(s): N18.4 - Chronic kidney disease, stage 4 (severe) Status: Chronic Assessment and Plan: Baseline 1.7-2.2. As above. (5) Hypertension, essential: Code(s): I10 - Essential (primary) hypertension Status: Chronic Assessment and Plan: Patient's blood pressure was reviewed on 06/06 Blood pressure remains well controlled. Will continue to monitor off medications (6) Type 2 diabetes mellitus with hyperglycemia: Code(s): E11.65 - Type 2 diabetes mellitus with hyperglycemia Status: Chronic Assessment and Plan: A1c 6.5. The patient's blood glucose was reviewed on 06/06 Glucose remains well controlled. Continue AccuCheks covering with sliding scale. Hypoglycemia protocol available as needed. Continue current medications with Amaryl. (7) CHF (congestive heart failure), NYHA class I: Code(s): I50.9 - Heart failure, unspecified Status: Chronic Assessment and Plan: Patient has hx of CHF. Lasix and lisinopril on hold related to her renal failure. She is positive about 6.7L. Consider diuresis when okay with nephrology. (8) Anemia: Code(s): D64.9 - Anemia, unspecified Status: Chronic Assessment and Plan: Hgb 10.7 on admission but dropped to the 7-8 range. B12 and Folate normal. Iron 20 with TIBC 218 and 9% saturation. Monitor. (9) Diarrhea: Code(s): R19.7 - Diarrhea, unspecified Status: Acute Assessment and Plan: CDiff assay cancelled since stool is now formed. Patient's loose stools related to antibiotics. (10) Hyperlipidemia, unspecified: Code(s): E78.5 - Hyperlipidemia, unspecified Status: Chronic Assessment and Plan: LFTs normal. Continue Simvastatin. (11) DVT prophylaxis: Code(s): Z29.9 - Encounter for prophylactic measures, unspecified Status: Acute Assessment and Plan: Heparin Subjective Date/time seen: 06/06/20 10:25 Interval history: Date of service 06/06 74yo female with hx of CHF, CKD stage 4, diabetic peripheral neuropathy, and HTN presented to the ED on 05/31/2020 with complains of generalized weakness and fevers. Feels worse today. Slept poorly. No n/v. +Headache. No CP or SOB. Complains of left flank pain but no change past few days. Epigastric pain 'comes and goes' still. Nonproductive cough Exam Narrative: Exam Narrative: AF 98.4 137/58 84 17 96% RA Gen - NARD Chest - few scattered expiratory wheezes o/w clear. CV - RRR S1/S2 Abd - soft, NT/ND, +BS, reducible umbilical hernia Back - no CVA tenderness Ext - trace-1+ pedal edema Psych - depressed mood Skin - warm and dry Objective Data Vital Signs Vital Signs: Vital
[2020-06-06 11:14] LABS: Glucose Point of Care 162 (65-105)
[2020-06-06 11:27] VITALS: O2SAT 95
--- NOTE | 2020-06-06 13:56 | P.PNNP_ITS ---
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 * She seems to be doing better. Consider discharge at any time when other issues are resolved (2) Chronic kidney disease, stage 4 (severe): Code(s): N18.4 - Chronic kidney disease, stage 4 (severe) Status: Chronic Assessment and Plan: * baseline creatinine runs ~ 1.7 - 2.2mg/dl in the last couple of years * based on outpatient evaluation, thought to be secondary to HTN, DM, and vascular disease (3) Septic shock: Code(s): A41.9 - Sepsis, unspecified organism; R65.21 - Severe sepsis with septic shock Status: Acute Assessment and Plan: * resolving * possible urosepsis given + blood and urine cultures with E. coli * on ceftriaxone intravenously (4) Anemia: Code(s): D64.9 - Anemia, unspecified Status: Chronic Assessment and Plan: * partly due to CKD but worsened by NATE and acute illness/infection * hb bouncing around between 7.8 and 8.5. * checked tomorrow (5) Diabetes: Code(s): E11.9 - Type 2 diabetes mellitus without complications Status: Acute Assessment and Plan: * follow accuchecks * glycemic control\ (6) Metabolic acidosis: Code(s): E87.2 - Acidosis Status: Acute Assessment and Plan: resolved. Subjective Date/time seen: 06/06/20 13:56 Interval history: alert, feels a little blah today. Just not as much energy eager for discharge Exam Narrative: Exam Narrative: General: WD/WN female in NAD Heart: normal S1 and S2; no rub Lungs: clear Abdomen: soft, nontender, nondistended, positive bowel sounds Extremities: 1+ edema Skin: no rash Objective Data Vital Signs Vital Signs: Vital Signs - 24 hr 06/05/20 14:00 06/05/20 16:00 06/05/20 20:55 Temperature 36.2 C L 36.6 C Pulse Rate 83 84 90 Respiratory Rate 16 18 Blood Pressure 140/69 148/61 H Pulse Oximetry 97 96 06/06/20 04:17 06/06/20 11:27 Temperature 36.9 C Pulse Rate 84 Respiratory Rate 17 Blood Pressure 137/58 L Pulse Oximetry 96 95 Intake/Output Intake/Output: Intake & Output 06/03/20 06/04/20 06/05/20 06/06/20 23:59 23:59 23:59 23:59 Intake Total 3300 1540 1465 1000 Output Total 0911 885 8277 1050 Balance 1600 740 -1135 -50 Meds/Results Medications: Active Medications Generic Name Dose Route Start Last Admin Trade Name Dennyq PRN Reason Stop Dose Admin Acetaminophen 650 mg 06/01/20 01:09 06/05/20 20:54 Acetaminophen 325 Mg Tablet PO 650 mg Q4H PRN Administration Mild Pain (1-3) or Fever Aspirin 81 mg 06/01/20 09:00 06/06/20 08:35 Aspirin 81 Mg Enteric Tablet PO 81 mg DAILY [facility] Adm
--- NOTE | 2020-06-06 13:56 | PM.PNNEP ---
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 She seems to be doing better. Consider discharge at any time when other issues are resolved (2) Chronic kidney disease, stage 4 (severe): Code(s): N18.4 - Chronic kidney disease, stage 4 (severe) Status: Chronic Assessment and Plan: baseline creatinine runs ~ 1.7 - 2.2mg/dl in the last couple of years based on outpatient evaluation, thought to be secondary to HTN, DM, and vascular disease (3) Septic shock: Code(s): A41.9 - Sepsis, unspecified organism; R65.21 - Severe sepsis with septic shock Status: Acute Assessment and Plan: resolving possible urosepsis given + blood and urine cultures with E. coli on ceftriaxone intravenously (4) Anemia: Code(s): D64.9 - Anemia, unspecified Status: Chronic Assessment and Plan: partly due to CKD but worsened by NATE and acute illness/infection hb bouncing around between 7.8 and 8.5. checked tomorrow (5) Diabetes: Code(s): E11.9 - Type 2 diabetes mellitus without complications Status: Acute Assessment and Plan: follow accuchecks glycemic control\ (6) Metabolic acidosis: Code(s): E87.2 - Acidosis Status: Acute Assessment and Plan: resolved. Subjective Date/time seen: 06/06/20 13:56 Interval history: alert, feels a little blah today. Just not as much energy eager for discharge Exam Narrative: Exam Narrative: General: WD/WN female in NAD Heart: normal S1 and S2; no rub Lungs: clear Abdomen: soft, nontender, nondistended, positive bowel sounds Extremities: 1+ edema Skin: no rash Objective Data Vital Signs Vital Signs: Vital Signs - 24 hr 06/05/20 14:00 06/05/20 16:00 06/05/20 20:55 Temperature 36.2 C L 36.6 C Pulse Rate 83 84 90 Respiratory Rate 16 18 Blood Pressure 140/69 148/61 H Pulse Oximetry 97 96 06/06/20 04:17 06/06/20 11:27 Temperature 36.9 C Pulse Rate 84 Respiratory Rate 17 Blood Pressure 137/58 L Pulse Oximetry 96 95 Intake/Output Intake/Output: Intake & Output 06/03/20 06/04/20 06/05/20 06/06/20 23:59 23:59 23:59 23:59 Intake Total 3300 1540 1465 1000 Output Total 5728 293 5577 1050 Balance 1600 740 -1135 -50 Meds/Results Medications: Active Medications Generic Name Dose Route Start Last Admin Trade Name Freq PRN Reason Stop Dose Admin Acetaminophen 650 mg 06/01/20 01:09 06/05/20 20:54 Acetaminophen 325 Mg Tablet PO 650 mg Q4H PRN Administration Mild Pain (1-3) or Fever Aspirin 81 mg 06/01/20 09:00 06/06/20 08:35 Aspirin 81 Mg Enteric Tablet PO 81 mg DAILY JACKY Administration Dextrose 12.5 gm 05/31/20 20:59 Dextrose 50% 25 Gm/50 Ml Syringe IV PUSH PRN PRN Hypoglycemia Protocol Famotidine 20 mg 06/04/20 21:00 06/06/20 08:35 Famotidine 20 Mg Tablet PO 20 mg Q12HR JACKY Administration Gabapentin 300 mg 05/31/20 21:45 06/06/20 12:30 Gabapentin 300 Mg Capsule PO 300 mg QID JACKY Administration Glimepiride 2 mg 06/01/20 09:00 06/06/20 08:35 Glimepiride 2 Mg Tablet PO 2 mg BID JACKY Administration Glucagon 1 mg 05/31/20 20:59 Glucagon For Inj 1 Mg Vial IM PRN PRN Hypoglycemia Protocol Glucose 15 gm 05/31/20 20:59 06/03/20 07:55 Glucose Oral Gel 15 Gm Of Glucse In 37.5 Gm Tube PO 15 gm PRN PRN Administration Hypoglycemia Protocol Heparin Sodium ([place]ci
[2020-06-06 14:00] VITALS: BP 143/67; PULSE 86; RESP 18; TEMP 36.8; O2SAT 99
[2020-06-06 15:39] LABS: Chloride Rand Ur 27 mmol/L (32-290); Chloride/Creatinine Rand Ur 33 (38-318); Creatinine Random Urine 83 mg/dL (20-275)
[2020-06-06 16:37] LABS: Glucose Point of Care 120 (65-105)
[2020-06-06] MEDS: ACETAMINOPHEN 325 MG TABLET 650 MG PO (18:07)
[2020-06-06] MEDS: FLUTICASONE PROPIONATE 0.05% NA SPR 16 GM BTL (*BKC) 1 SPRAY NASAL (20:44)
[2020-06-06 20:56] LABS: Glucose Point of Care 171 (65-105)
[2020-06-06 20:57] VITALS: BP 140/48; PULSE 86; RESP 17; TEMP 37.1; O2SAT 96
[2020-06-07 05:43] LABS: Hemoglobin 7.9 g/dL (12.0-15.0); Mean Corpuscular HGB Conc 30.4 g/dl (32-36); Mean Corpuscular Hemoglobin 26.4 pg (26-34); Mean Platelet Volume 10.4 fl (7.4-10.4); Platelet Count Result 269 k/mm3 (150-375); Red Blood Count 2.99 M/mm3 (4.2-5.4); Red Cell Distribution Width 17.2 % (11.5-14.5)
[2020-06-07 05:46] VITALS: BP 126/68; PULSE 83; RESP 18; TEMP 36.9; O2SAT 97
[2020-06-07 06:06] LABS: Albumin Level 2.7 g/dL (3.5-5.1); Anion Gap 4 mmol/L (8-16); Blood Urea Nitrogen 58 mg/dL (7-17); Calcium 7.7 mg/dL (8.4-10.2); Carbon Dioxide 31 mmol/L (22-30); Chloride 105 mmol/L (98-107); Estimated CRCL calculation 18 ml/min; Estimated Glomerular Filt Rate 17; Glucose 155 mg/dL (65-105); Phosphorus 4.1 mg/dL (2.5-4.5); Potassium 3.4 mmol/L (3.4-5.0); Sodium 140 mmol/L (137-145)
[2020-06-07 08:51] LABS: Glucose Point of Care 141 (65-105)
--- NOTE | 2020-06-07 08:51 | PM.DS ---
DS: Admitting Diagnosis Admitting Diagnosis Admitting Diagnosis: Weakness, fever and chills. DS: Discharge Diagnosis Discharge Diagnosis (1) Sepsis: Code(s): A41.9 - Sepsis, unspecified organism Status: Acute Assessment and Plan: Patient found to have septicemia present admission from UTI with EColi. Blood and Urine Cx both growing Ecoli sensitive to Rocephin. Started on Rocephin with dose increased to 2gm given the bacteremia on 06/04/20. Patient became afebrile. WBC as high as 20K but since has normalized. Continue abx to complete a course. (2) UTI (urinary tract infection): Code(s): N39.0 - Urinary tract infection, site not specified Status: Acute Assessment and Plan: As above. Pt had Ecoli in her blood culture and urine culture. (3) NATE (acute kidney injury): Code(s): N17.9 - Acute kidney failure, unspecified Status: Acute Assessment and Plan: Cr 3.8 on admission. Baseline 1.7-2.2. Renal US normal. Lisinopril and Lasix held. Cr trending down to 2.7. Nephrology followed along. Spoke with nephrology with plans to resume Lasix at half her dose in 3 days. Patient informed. (4) Chronic kidney disease, stage 4 (severe): Code(s): N18.4 - Chronic kidney disease, stage 4 (severe) Status: Chronic Assessment and Plan: Baseline 1.7-2.2. As above. (5) Hypertension, essential: Code(s): I10 - Essential (primary) hypertension Status: Chronic Assessment and Plan: Patient's blood pressure was monitored closely. Blood pressure remained well controlled despite being off her home medications. (6) Type 2 diabetes mellitus with hyperglycemia: Code(s): E11.65 - Type 2 diabetes mellitus with hyperglycemia Status: Chronic Assessment and Plan: A1c 6.5. The patient's blood glucose was monitored closely and remained well controlled. We monitored with AccuCheks covering with sliding scale. Hypoglycemia protocol was available as needed. (7) CHF (congestive heart failure), NYHA class I: Code(s): I50.9 - Heart failure, unspecified Status: Chronic Assessment and Plan: Patient has hx of CHF. Echo 06/01 showing Normal LV systolic function with EF of 60-65% and grade 1 diastolic dysfunction. She did have moderate pulmonary hypertension (50mmH). Lasix and lisinopril held related to her renal failure. She is positive about 7.2L. CXR prior to discharge showing small bilateral pleural effusions with bibasilar opacities. She remained on room air. She does have some extremity edema but could be from her pulmonary HTN. Patient states she ONLY takes 40mg Lasix daily at home(NOT 80mg as documented in the chart). Lasix to resume on 06/10/20 at 20mg daily dose (8) Anemia: Code(s): D64.9 - Anemia, unspecified Status: Chronic Assessment and Plan: Hgb 10.7 on admission but dropped to the 7-8 range and remained stable. B12 and Folate normal. Iron 20 with TIBC 218 and 9% saturation. Probably related to anemia of chronic disease from her CKD but could have component of iron deficiency. Oral iron started. (9) Diarrhea: Code(s): R19.7 - Diarrhea, unspecified Status: Acute Assessment and Plan: CDiff assay cancelled since stool is now formed. Patient's loose stools related to antibiotics. (10) Hyperlipidemia, unspecified: Code(s): E78.5 - Hyperlipidemia, unspecified Status: Chronic Assessment and Plan: LFTs were normal. We continued Simvastatin. (11) Pulmonary HTN: Code(s): I27.20 - Pulmonary hypertension, unspecified Status: Acute Assessment and Plan: Echo showing moderate pulmonary hypertension. Never been diagnosed with CRISTIN but she does snore at night. Her manager night 2 years ago recommended a sleep study but she never followed through. She is agreeable to have one done as outpatient.
[2020-06-07] MEDS: ASPIRIN 81 MG ENTERIC TABLET PO (09:01)
[2020-06-07] MEDS: FLUTICASONE PROPIONATE 0.05% NA SPR 16 GM BTL (*BKC) 1 SPRAY NASAL (09:01)
[2020-06-07] MEDS: FAMOTIDINE 20 MG TABLET PO (09:02)
[2020-06-07] MEDS: SIMVASTATIN 20 MG TABLET PO (09:02)
[2020-06-07] MEDS: GLIMEPIRIDE 2 MG TABLET PO (09:02)
[2020-06-07] MEDS: GABAPENTIN 300 MG CAPSULE PO (09:02)
[2020-06-07] MEDS: CHOLECALCIFEROL 1,000 UNITS TABLET 2000 UNITS PO (09:02)
[2020-06-07] MEDS: MULTIVITAMINS THERAPEUTIC TAB (*BKC) 1 TABLET PO (09:02)
[2020-06-07] MEDS: HEPARIN SODIUM 5,000 UNITS/ML VIAL 5000 UNITS SUB-Q (09:07)
== END 2020-06-07 11:16 | disposition home health service (06) | DRG 871 ==
LOC: ANHED 19:45 → ANHICU 23:03 → ANH3MED 06-02 02:36 → ANHICU 06-10 14:15
PROVIDERS: Family Medicine; Internal Medicine; Internal Medicine Nephrology; Admitting Provider Family Medicine; Emergency Provider Emergency Medicine; PCP Internal Medicine; Visit Provider Nurse Practitioner
DX: A41.51 Sepsis due to Escherichia coli [E. coli] (principal); R65.21 Severe sepsis with septic shock; N17.0 Acute kidney failure with tubular necrosis; N39.0 Urinary tract infection, site not specified; I13.0 Hypertensive heart and chronic kidney disease with heart failure and stage 1 through stage 4 chronic kidney disease, or unspecified chronic kidney disease; N18.4 Chronic kidney disease, stage 4 (severe); I50.32 Chronic diastolic (congestive) heart failure; E87.2 Acidosis; Z20.822 Contact with and (suspected) exposure to COVID-19; E11.22 Type 2 diabetes mellitus with diabetic chronic kidney disease; E11.42 Type 2 diabetes mellitus with diabetic polyneuropathy; E11.65 Type 2 diabetes mellitus with hyperglycemia; E87.5 Hyperkalemia; E86.0 Dehydration; D63.1 Anemia in chronic kidney disease; D50.9 Iron deficiency anemia, unspecified; R19.7 Diarrhea, unspecified; T36.95XA Adverse effect of unspecified systemic antibiotic, initial encounter; E78.5 Hyperlipidemia, unspecified; I27.20 Pulmonary hypertension, unspecified; Z90.49 Acquired absence of other specified parts of digestive tract
CPT/HCPCS: 36415; 36556; 51701; 51702; 70450; 71045; 71046; 76775; 80048; 80053; 80069; 81001; 82436; 82570; 82607; 82728; 82746; 82948; 83036; 83540; 83550; 83605; 83735; 84100; 84133; 84300; 84443; 85025; 85027; 85610; 85730; 85999; 86140; 87040; 87077; 87086; 87088; 87186; 93005; 93306; 94640; 96365; 96367; 97110; 97116; 97161; 97165; 97530; 97535; 99291; A9270; C1751; C9803; J0131; J0696; J1644; J1815; J7030; U0003; U0005

== ENCOUNTER 2021-01-06 14:16 | Outpatient (CLI) | payer BC, SELFPAY | END 2021-01-06 14:17 | disposition home or self-care (01) | LOC: ANHAUDIO 14:18 | PROVIDERS: PCP Internal Medicine; Visit Provider Otolaryngology | DX: H93.19 Tinnitus, unspecified ear (principal); H90.3 Sensorineural hearing loss, bilateral | CPT/HCPCS: 92557; 92567 ==

== ENCOUNTER → 2021-12-02 10:57 | Outpatient (CLI) | payer BC, SELFPAY ==
--- NOTE | ~2021-12-02 | US_ITS ---
EXAMINATION: US soft tissue lower back DATE: 12/02/2021 11:20 INDICATION: pain, swelling/induration right flank/lower back . TECHNIQUE: Grayscale and Doppler ultrasound images of the right flank were obtained. COMPARISON: None. FINDINGS: The area of clinical concern was interrogated in the right flank. No cystic or solid mass. No abnormal fluid. IMPRESSION: No sonographic abnormality detected in the area of clinical concern. Reviewed, dictated and finalized at location K.
== END ==
PROVIDERS: PCP Internal Medicine; Visit Provider Nurse Practitioner
DX: R22.2 Localized swelling, mass and lump, trunk (principal)
CPT/HCPCS: 76705

== ENCOUNTER 2022-01-27 09:12 | Outpatient (CLI) | payer BC, SELFPAY ==
--- NOTE | ~2022-01-27 | CT_ITS ---
EXAMINATION: CT abdomen pelvis wo con DATE: 01/27/2022 09:37 INDICATION: Right-sided back pain. TECHNIQUE: Computed tomography (CT) of the abdomen and pelvis was performed without intravenous contr ast. Automated exposure control and iterative reconstruction technique were employed. The dose-length product was 1237.04 mGy-cm. COMPARISON: CT pelvis 02/28/2018 FINDINGS: The visualized portions of the lung bases demonstrate mild chronic lung disease. No pleural effusion. The heart size is normal. No pericardial effusion. The liver demonstrates focal steatosis adjacent to ligamentum teres. There are changes of cholecystectomy. Calcifications in the spleen are consistent with old granulomatous disease. The pancreas and adrenal glands are normal. There is corti desi thinning of the kidneys. There are cysts in the kidneys measuring up to 18 mm on the left. There is a 7 mm hemorrhagic cyst in left kidney. There is an umbilical hernia containing fat. There are markus ateral inguinal hernias containing fat. There is diverticulosis of the colon without evidence of dive rticulitis. The appendix is normal. There are no pathologically enlarged lymph nodes. There is no eusebio e intraperitoneal fluid. There is severe lumbar spondylosis. IMPRESSION: 1. No urolithiasis. 2. Umbilical hernia containing fat. Bilateral inguinal hernias containing fat. Reviewed, dictated and finalized at location A.
== END 2022-01-27 09:13 | disposition home or self-care (01) ==
PROVIDERS: PCP Internal Medicine; Visit Provider Internal Medicine
DX: M54.50 Low back pain, unspecified (principal); K42.9 Umbilical hernia without obstruction or gangrene; K40.20 Bilateral inguinal hernia, without obstruction or gangrene, not specified as recurrent
CPT/HCPCS: 74176

== ENCOUNTER 2022-02-11 14:31 | Outpatient (CLI) | payer BC, SELFPAY ==
--- NOTE | ~2022-02-11 | CT_ITS ---
EXAMINATION: CT lumbar spine wo con DATE: 02/11/2022 14:58 INDICATION: Low back pain. TECHNIQUE: Computed tomography (CT) of the lumbar spine was performed without intravenous contrast. A utomated exposure control and iterative reconstruction technique were employed. The dose-length produ ct was 1282.29 mGy-cm. COMPARISON: None FINDINGS: There is mild atrophy of left kidney. There is a 16 mm cyst in left kidney. There is 9 degr ees levocurvature of thoracolumbar spine. There is 3 mm retrolisthesis of L3 on L4 and L4 on L5. Vert ebral body heights are normal. There is moderately decreased disc height from L2-L3 through L5-S1 wit h endplate remodeling. The following disc levels are specifically discussed: L1-L2: There is a central protrusion. There is mild bilateral facet joint osteoarthritis. There is no neural foraminal stenosis. There is mild central canal stenosis. L2-L3: The disc is bulging. There is severe bilateral facet joint osteoarthritis. There is mild bilat eral neural foraminal stenosis. There is mild central canal stenosis. L3-L4: The disc is bulging. There is severe bilateral facet joint osteoarthritis. There is mild bilat eral neural foraminal stenosis. There is moderate central canal stenosis. L4-L5: The disc is bulging. There is severe bilateral facet joint osteoarthritis. There is mild bilat eral neural foraminal stenosis. There is mild central canal stenosis. L5-S1: The disc is bulging. There is severe bilateral facet joint osteoarthritis. There is mild bilat eral neural foraminal stenosis. There is mild central canal stenosis. IMPRESSION: 1. Moderate lumbar spondylosis. Reviewed, dictated and finalized at location A. YSIS TECH
== END 2022-02-11 14:32 | disposition home or self-care (01) ==
PROVIDERS: PCP Internal Medicine; Visit Provider Internal Medicine
DX: M54.50 Low back pain, unspecified (principal); M43.06 Spondylolysis, lumbar region
CPT/HCPCS: 72131

== ENCOUNTER → 2022-03-09 15:42 | Outpatient (CLI) | payer BC, SELFPAY ==
--- NOTE | ~2022-03-09 | XR_ITS ---
EXAM: XR knee RT 2V, XR knee LT 2V DATE: 03/09/2022 16:07 HISTORY: right knee pain . COMPARISON: None available. FINDINGS: Normal mineralization. No fracture or dislocation. No lytic or blastic lesion. Severe bila teral medial joint space narrowing, worse in the left knee. Moderate tricompartmental osteophytosis, again worse in the left knee. Chondrocalcinosis. Loss of valgus alignment. No erosion or periosteal c hange. Soft tissues within normal limits. Small bilateral knee joint effusions. IMPRESSION: Bilateral tricompartmental arthritic changes in the knees, severe in the medial compartme nts bilaterally, and overall, worse in the left knee. Reviewed, dictated and finalized at location K. ORK DIRECTOR IMPRESSION: Bilateral tricompartmental arthritic changes in the knees, severe i n the medial compartments bilaterally, and overall, worse in the left knee.
== END ==
PROVIDERS: PCP Internal Medicine; Visit Provider Nurse Practitioner Family
DX: M25.562 Pain in left knee (principal)
CPT/HCPCS: 73560

== ENCOUNTER 2022-03-13 06:43 | Observation (INO) | payer BC, SELFPAY ==
[2022-03-13] VITALS (21 sets, daily range): BP systolic 150–196; BP diastolic 70–148; PULSE 82–97; RESP 16–46; TEMP 36.7–37.5; O2SAT 96–100
--- NOTE | ~2022-03-13 | CT_ITS ---
EXAMINATION: CT brain wo con DATE: 03/13/2022 08:36 INDICATION: Altered mental state TECHNIQUE: Computed tomography (CT) of the head was performed without intravenous contrast. The mA wa s adjusted according to patient size. Iterative reconstruction technique was employed. Exam dose: 14 26.55 mGy-cm total exam DLP. COMPARISON: May 31, 2020 CT brain FINDINGS: Examination is limited due to patient motion, with resultant motion artifact. Bilateral vertebral artery and carotid siphon internal carotid artery calcifications. No intracranial mass lesion or hemorrhage, midline shift or mass effect effect or subdural or epidura l hematoma is detected. Normal ventricular size. No apparent fracture or bone destruction of the cranial vault. Included mastoid air cells and paranas al sinuses are unremarkable. IMPRESSION: Limited examination due to motion artifact Cerebral atherosclerosis No apparent skull fracture or acute intracranial finding Reviewed, dictated and finalized at Location A. Reviewed, dictated and finalized at location B. SUPERVISOR
--- NOTE | ~2022-03-13 | XR_ITS ---
XR chest 1V portable DATE: 03/13/2022 08:44 INDICATION: Altered mental status. TECHNIQUE: Portable upright AP views on 03/13/2022 at 0841 hours COMPARISON: 06/06/2020 AP and lateral chest FINDINGS: Cardiomegaly. No hilar or mediastinal enlargement is detected. No pulmonary infiltrate or c onsolidation, pleural effusion or pulmonary vascular congestion or pneumothorax. Osteopenia. Dextroscoliosis and degenerative spurring of the thoracic spine. IMPRESSION: Cardiomegaly; no active pulmonary disease Reviewed, dictated and finalized at location B. L WEATHER STRIPPER
--- NOTE | ~2022-03-13 | MR_ITS ---
EXAMINATION: MR brain/brain stem wo con DATE: 03/13/2022 17:24 INDICATION: Concern for stroke . Altered mental status. TECHNIQUE: Magnetic resonance imaging (MRI) of the brain and brainstem was performed without intraven ous contrast. Sequences included sagittal T1-weighted SE and axial diffusion-weighted FS SE were obta ined. Apparent diffusion coefficient (ADC) maps were created. Study was terminated at this point as p chico was noncompliant and climbing out of the scanner. COMPARISON: Head CT dated 03/13/2022 FINDINGS: No acute infarction or abnormal extra axial fluid collection. No abnormal regions of high T1 signal t o suggest acute hemorrhage. Ventricles are normal and symmetric. No mass/mass effect. The orbits, par anasal sinuses and mastoid air cells are normal. IMPRESSION: 1. No acute infarct. Otherwise unremarkable limited MRI with only localizer images, diffusion-weighte d imaging and sagittal T1-weighted imaging obtained prior to patient terminating the study. Reviewed, dictated and finalized at location A. N LOADER IMPRESSION: 1. No acute infarct. Otherwise unremarkable limited MRI with only localizer sara ges, diffusion-weighted imaging and sagittal T1-weighted imaging obtained prior to patient terminating the study.
--- NOTE | ~2022-03-13 | CT_ITS ---
EXAMINATION: CT abdomen pelvis wo con DATE: 03/13/2022 08:35 INDICATION: Abdominal distention TECHNIQUE: Computed tomography (CT) of the abdomen and pelvis was performed without intravenous contr ast. Automated exposure control and iterative reconstruction technique were employed. The dose-length product was 1426.55 mGy-cm. COMPARISON: 01/27/2022 and 02/28/2018 FINDINGS: Symmetric motion and unchanged mild chronic atelectasis/scarring at the lung bases. Heart size is nor mal. No pericardial or pleural effusion. Small sliding-type hiatal hernia. Focal hepatic steatosis al shilpa the ligamentum teres. Cholecystectomy clips the gallbladder fossa. Spleen,, pancreas and bilatera l adrenal glands are normal. Bilateral renal cortical atrophy, mild on the right and moderate severit y on the left. No interval change in a few cysts in the left kidney including the largest 1.7 cm exop hytic cyst arising from the lower pole and additional small higher attenuation proteinaceous/hemorrha gic cyst at the lower pole. There is prominent diverticulosis along the sigmoid and descending colon without adjacent inflammatory change to suggest diverticulitis. Small bowel and appendix are normal. Small fat-containing umbilical hernia. There are also moderate sized bilateral fat-containing inguina l hernias. Partially decompressed bladder is normal. Uterus and bilateral adnexa are unremarkable. Ch ronic dystrophic calcifications at the cervix. No free intraperitoneal gas or fluid. No pathologicall y enlarged abdominal or pelvic lymphadenopathy. Moderate to severe lumbar spondylosis. IMPRESSION: 1. No acute intra-abdominal/pelvic process. 2. Small sliding-type hiatal hernia. 3. Small fat-containing umbilical and moderate-sized bilateral fat-containing inguinal hernias. Reviewed, dictated and finalized at location A. TREAT INSPECTOR IMPRESSION: 1. No acute intra-abdominal/pelvic process. 2. Small sliding-type hiatal hernia. 3. Small fat-containing umbilical and moderate-sized bilateral fat-containing i nguinal hernias.
--- NOTE | ~2022-03-13 | US_ITS ---
EXAMINATION: US venous doppler [facility] DATE: 03/14/2022 12:19 INDICATION: Bilateral lower limb swelling TECHNIQUE: Grayscale ultrasound images without and with compression and Doppler ultrasound images of the bilateral lower extremity veins were obtained. COMPARISON: None. FINDINGS: The visualized portions of right common femoral vein, profunda (deep) femoral vein, femoral vein, pop liteal vein, posterior tibial veins, peroneal veins, gastrocnemius vein and greater saphenous vein ou tflow are patent. The visualized portions of left common femoral vein, profunda femoral vein, femoral vein, popliteal v ein, posterior tibial veins, peroneal veins, gastrocnemius vein and greater saphenous vein outflow ar e patent. IMPRESSION: 1. No deep venous thrombosis in either lower limb. Reviewed, dictated and finalized at location A. OR DESIGNER
--- NOTE | 2022-03-13 07:02 | ECG_ITS ---
Measurements Intervals [place] Rate: 86 P: VT: 0 QRS: 40 QRSD: 61 T: 58 QT: 367 QTc: 440 Interpretive Statements POOR ECG QUALITY BECAUSE OF BASELINE ARTIFACT SINUS RHYTHM NO GROSS ST OR T ABNORMALITIES COMPARED WITH 05/31/2020 NO OBVIOUS CHANGES ALTHOUGH THIS TRACING AGAIN IS OF POOR QUALITY Electronically Signed On 03-13-2022 17:13:08 [employer]FTBALL CORE [employer]OLDER by John Webster M.D.
[2022-03-13 07:21] LABS: Alanine Aminotransferase 18 U/L (6-35); Albumin Level 4.4 g/dL (3.5-5.1); Alkaline Phosphatase 103 U/L (38-126); Anion Gap 11 mmol/L (8-16); Aspartate Amino Transferase 25 U/L (14-36); Bilirubin,Total 0.5 mg/dL (0.2-1.3); Blood Urea Nitrogen 41 mg/dL (7-17); Calcium 9.5 mg/dL (8.4-10.2); Carbon Dioxide 23 mmol/L (22-30); Chloride 110 mmol/L (98-107); Estimated CRCL calculation 21 ml/min; Estimated Glomerular Filt Rate 22; Glucose 222 mg/dL (65-110); Potassium 4.9 mmol/L (3.4-5.0); Sodium 144 mmol/L (137-145)
[2022-03-13 07:21] LABS: Basophils Percent Auto 0.3 % (0.2-1.2); Eosinophils Absolute Auto 0.2 K/mm3 (0-0.3); Eosinophils Percent Auto 1.5 % (0-4.4); Hematocrit 38.7 % (37.0-47.0); Hemoglobin 11.9 g/dL (12.0-15.0); Immature Granulocyte Absolute 0.03 K/mm3 (0.00-0.031); Immature Granulocyte Percent A 0.3 % (0-0.5); Lymphocytes Absolute Auto 2.22 K/mm3 (0.9-3.2); Lymphocytes Percent Auto 22.7 % (18.3-44.2); Mean Corpuscular HGB Conc 30.7 g/dl (32-36); Mean Corpuscular Hemoglobin 27.7 pg (26-34); Mean Platelet Volume 9.9 fl (7.4-10.4); Monocytes Absolute Auto 0.6 K/mm3 (0.1-0.6); Monocytes Percent Auto 6.2 % (2.6-8.5); Neutrophils Absolute Auto 6.7 K/mm3 (1.3-6.7); Platelet Count Result 278 k/mm3 (150-375); Red Cell Distribution Width 16.4 % (11.5-14.5); White Blood Count 9.8 K/mm3 (4.5-10.0)
[2022-03-13 07:26] LABS: Prothrombin Time 12.8 Seconds (11.1-14.7)
--- NOTE | 2022-03-13 07:26 | PC.NURSE ---
Report given to GISSELLE Ansari.
[2022-03-13 07:29] LABS: Partial Thromboplastin Time 26.1 SECONDS (22.3-36.8)
[2022-03-13 07:50] LABS: Influenza A QL RT-PCR Negative (Negative); Influenza B QL RT-PCR Negative (Negative); SARS-CoV-2 RNA PCR Negative
[2022-03-13 07:50] LABS: Appearance Urine Clear (Clear); Bilirubin Urine 1+ (Negative); Blood Urine 1+ (Negative); Color Urine Yellow (Yellow); Glucose Urine UA Negative (Negative); Ketones Urine 1+ mg/dL (Negative); Leukocyte Esterase Ur Negative LEU/UL (Negative); Nitrate Urine Negative (Negative); Protein Urine 2+ mg/dL (Negative); Urobilinogen Urine 0.2 mg/dL (<2.0)
--- NOTE | 2022-03-13 07:50 | ED.AMS ---
HPI - Altered Mental Status General Chief Complaint: Altered Mental Status Stated Complaint: AMS Time Seen by Provider: 03/13/22 07:05 Source: family, RN notes reviewed and old records reviewed Mode of arrival: EMS Limitations: altered mental status History of Present Illness HPI narrative: This is a 76 year old female with history of multiple medical problems who presents for evaluation of altered mental status. Nursing staff reports EMS reports patient is poor historian Patient is only able to complain of abdominal pain and nausea. She is anxious appearing and able to follow intermittent commands. Nursing reports patient told her she could not see. Patient is able to track me and she reports she is able to see me. She denies blurred vision. Patient's states patent has been dealing with alot of knee pain due to arthritis. Yesterday she was feeling unwell but she was normal mentally. Her last known normal was last night at 10 pm. He states this morning patient was confused and she told him she could not see. Related Data Home Medications Medication Instructions Recorded Confirmed aspirin 81 mg tablet,delayed 81 mg PO DAILY 09/27/19 03/13/22 release (Adult Aspirin Regimen) cholecalciferol (vitamin D3) 50 125 mcg PO DAILY 05/29/20 03/13/22 mcg (2,000 unit) tablet multivitamin (Multiple Vitamins 1 tablet PO DAILY 05/29/20 03/13/22 tablet) furosemide 20 mg tablet 40 mg PO QAM 09/26/20 03/13/22 hydroxyzine HCl 10 mg tablet 10 mg PO QHS 07/01/21 03/13/22 nystatin 100,000 unit/gram topical 1 applic topical BID PRN Rash 10/27/21 03/13/22 powder calcium carbonate 500 mg calcium 500 mg PO DAILY 03/13/22 03/13/22 (1,250 mg) tablet clopidogrel 75 mg tablet 75 mg PO DAILY 03/13/22 03/13/22 Allergies Allergy/AdvReac Type Severity Reaction Status Date / Time codeine Allergy Intermediate Rash Verified 03/13/22 08:53 Penicillins Allergy Intermediate Rash Verified 03/13/22 08:53 Sulfa (Sulfonamide Allergy Intermediate cheeks get Verified 03/13/22 08:53 Antibiotics) really red Review of Systems Review of Systems: ROS unobtainable: Yes unobtainable due to mental status PMFSH Past Medical History Medical History NATE (acute kidney injury) Anemia CHF (congestive heart failure), NYHA class I Chronic kidney disease, stage 4 (severe) Coronary artery disease involving [place] heart without angina pectoris Diabetic peripheral neuropathy Hyperlipidemia, unspecified Hypertension, essential Metabolic acidosis PAD (peripheral artery disease) Postmenopausal Psychogenic formication Pulmonary HTN Sepsis Thrombosed external hemorrhoid Type 2 diabetes mellitus with hyperglycemia Surgical History Surgical History H/O heart artery stent History of cholecystectomy Hx of tonsillectomy Family History Family History Mother Cerebrovascular accident Diabetes mellitus Family history of cardiovascular disease Father Myocardial infarction Sibling Colon cancer Congestive heart failure Other Hypertension Social History Social History (Updated 03/13/22 @ 15:01 by Pau Farmer NP) Social History: The patient had 3 children. 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 Her Trey is the durable power managing attorney for healthcare. The patient is a full code. Who is a lifelong nonsmoker. She does not use any alcohol marijuana or illicit drugs. Code status full code Smoking status: Never smoker Second hand tobacco smoke exposure: No Alcohol intake: never Substance use: never Lack of Transportation: No Lack of Food: Never True Current Housing: I Have Housing Concerned About Future Housing: No Difficulty Paying Gas/Electric Bills: No Difficulty Paying for Meds: No Currently
[2022-03-13 08:03] LABS: Alveolar/Arterial O2 Gradient 30.1 mmHg; Base Excess ABG -0.7 mEq/l (+/-2.0); Carboxyhemoglobin 1.5 % THb (0-2.0); Fractional Inspired Oxygen 21 %; HCO3 ABG 20.3 mEq/l (22.0-26.0); Methemoglobin ABG 0.3 %THb (0-1.5); Oxygen Content ABG 16.6 %vol (16.0-22.0); Oxygen Saturation ABG 97.9 % (95.0-100.0); Oxyhemoglobin 95.4 % THb (90.0-100.0); PCO2 ABG 23.9 mmHg (35.0-45.0); PO2 FiO2 Ratio Arterial Blood 4.33 %; Reduced Hemoglobin 2.8 %THb (0-5.0); Total Hemoglobin 12.3 g/dL (12.0-18.0)
[2022-03-13 08:05] LABS: Device ROOM AIR; Modified Allen's Test Pass; Site Drawn LEFT RADIAL; pH ABG 7.546 (7.350-7.450)
[2022-03-13 08:06] LABS: Bacteria Urine Trace /hpf; Mucus Urine Rare /lpf; RBC Urine 0-2 /hpf (0-2); Squamous Epithelial Cell Urine Rare /hpf (Few); WBC Urine 0-3 /hpf
[2022-03-13 08:18] LABS: Add Urine Microscopic? YES
[2022-03-13 08:29] LABS: Ammonia < 9 umol/L (9-30)
[2022-03-13 08:30] LABS: Lactic Acid Reflex 3.1 mmol/L (0.7-2.0); Lipase 107 U/L (23-300); Magnesium 1.8 mg/dL (1.6-2.3)
[2022-03-13 08:41] LABS: Troponin I < 0.012 ng/mL (0.000-0.034)
[2022-03-13] MEDS: LORazepam INJ (*CRX) 2 MG/ML VIAL 0.5 MG IV PUSH (08:42)
[2022-03-13] MEDS: SODIUM CHLORIDE 0.9% IV 1,000 ML 999 ML IV CONT (08:44)
[2022-03-13] MEDS: ONDANSETRON INJ 4 MG/2 ML VIAL IV PUSH (08:44)
[2022-03-13 11:18] LABS: Reflex Lactic Acid Yes or No Add Lactic
--- NOTE | 2022-03-13 12:42 | PM.IMHP ---
H&P: HPI History of Present Illness Date/Time: 03/13/22 12:42 Chief Complaint: Altered mental status Narrative: This is a 76-year-old female patient who resides with her . The patient is not able to answer questions for me. And the stated that he needed to leave as he had not had anything to eat today. The patient did not know the month or the day. Was agitated was trying to get out of bed. The patient needed to have a bowel movement. She had a loose yellow brown bowel movement and was very short of breath getting up to the side of the bed. The patient had a shuffling walk and hand tremors. Her pH was 7.546 CO2 was 23.9. Last A1c was 6.1 on 02/19/2022. Blood glucose today was 222. Creatinine 2.2. Influenza A/B and COVID were negative. Chest x-ray was read as cardiomegaly no active pulmonary disease. Abdominal pelvis CT was read as the following1. No acute intra-abdominal/pelvic process. 2. Small sliding-type hiatal hernia. 3. Small fat-containing umbilical and moderate-sized bilateral fat-containing inguinal hernias. Head CT was read as limited examination due to motion artifact cerebral atherosclerosis no apparent skull fracture or acute intracranial findings. The patient was given Ativan Zofran and IV fluids in the emergency room. Neurology has been consulted. The patient stated that she was incontinent of urine she stated she lost her urine today and she does not usually do that. She has no known history of seizure or strokes. The patient is being admitted to observation status on the date of service of 03/13/2022. Review of Systems Review of Systems: See HPI All systems reviewed & are unremarkable except as noted in HPI and below Constitutional: Constitutional: Reports as per HPI and Reports no additional constitutional complaints Eyes: Eyes: Reports as per HPI and Reports no additional eye complaints ENT: Reports system reviewed and no additional complaints, except as documented and Reports Normal hearing present Cardiovascular: Cardiovascular: Reports no additional cardiovascular complaints Respiratory: Respiratory: Reports no additional respiratory complaints and Reports no additional respiratory complaints Gastrointestinal: Gastrointestinal: Reports as per HPI and Reports no additional gastrointestinal complaints Musculoskeletal: Musculoskeletal: Reports no additional musculoskeletal complaints Integumentary/Breasts: Skin/Breast: Reports system reviewed and no additional complaints, except as docu and Reports as per HPI Neurologic: Reports system reviewed and no additional complaints, except as documented, Reports as per HPI and Reports Normal hearing present Psychiatric: Psychiatric: Reports no additional psychiatric complaints and Reports as per HPI Endocrine: Endocrine: Reports no additional endocrine complaints Hematologic/Lymphatic: Hematologic/Lymphatic: Reports no additional hematologic/lymphatic complaints Allergic/Immunologic: Allergic/Immunologic: Reports no additional allergic/immunologic complaints [facility] Past Medical History Medical History NATE (acute kidney injury) Anemia CHF (congestive heart failure), NYHA class I Chronic kidney disease, stage 4 (severe) Coronary artery disease involving [place] heart without angina pectoris Diabetic peripheral neuropathy Hyperlipidemia, unspecified Hypertension, essential Metabolic acidosis PAD (peripheral artery disease) Postmenopausal Psychogenic formication Pulmonary HTN Sepsis Thrombosed external hemorrhoid Type 2 diabetes mellitus with hyperglycemia Surgical History Surgical History H/O heart artery stent History of cholecystectomy Hx of tonsillectomy Family History Family History Mother Cerebrovascular accident Diabetes mellitus Family history of cardiovascular
--- NOTE | 2022-03-13 13:06 | PC.NURSE ---
standard diabetic food tray ordered
--- NOTE | 2022-03-13 13:11 | WPDNEURCNPN ---
Assessment and Plan Assessment and plan (1) Altered mental status: Code(s): R41.82 - Altered mental status, unspecified Status: Acute Assessment and Plan: Kori Arellano is a 76 year old female with a history of type 2 diabetes, HTN, HLD, CHF who presented with altered mental status. She still does not appear at baseline. No obvious infectious or metabolic cause of encephalopathy. History surrounding the events that occurred. At this point, considering stroke and seizure as possibilities. Plan - Recommend MRI brain and MRA brain w/o contrast - Recommend routine EEG Consult date: 03/13/22 Time Seen: 13:12 Reason for consult: Altered mental status HPI: Kori Arellano is a 76 year old female with a history of type 2 diabetes, HTN, HLD, CHF who presents due to altered mental status. Her last known well as yesterday at 10pm. Patient apparently woke up confused this morning. She was brought in by EMS. came with her but is not currently at bedside and patient is unable to provide very much history. On arrival she appeared anxious and was complaining of abdominal pain and nausea. Patient reports she lost control of her kidneys. When asked if that meant she urinated on herself, she reported yes. She has also been having diarrhea. There were some reports that she has loss of vision at some point, but patient denied this later. She did appear very anxious in the ED so she was given a dose of Ativan 0.5mg daily. Her work-up including CT head and labs including UA have been unrevealing. From pain clinic visit on 03/09, patient's mental status is documented as AOx3 (which is presumably her baseline). Per hospitalist, patient notably had a shuffling gait when trying to ambulate earlier. Patient reports using walker at home. She denies frequent falls. Review of Systems Review of Systems: ROS unobtainable: Yes unobtainable due to medical condition and unobtainable due to mental status PMFSH Past Medical History Medical History NATE (acute kidney injury) Anemia CHF (congestive heart failure), NYHA class I Chronic kidney disease, stage 4 (severe) Coronary artery disease involving [place] heart without angina pectoris Diabetic peripheral neuropathy Hyperlipidemia, unspecified Hypertension, essential Metabolic acidosis PAD (peripheral artery disease) Postmenopausal Psychogenic formication Pulmonary HTN Sepsis Thrombosed external hemorrhoid Type 2 diabetes mellitus with hyperglycemia Surgical History Surgical History H/O heart artery stent History of cholecystectomy Hx of tonsillectomy Family History Family History Mother Cerebrovascular accident Diabetes mellitus Family history of cardiovascular disease Father Myocardial infarction Sibling Colon cancer Congestive heart failure Other Hypertension Social History Social History Social History: The patient had 3 children. 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 Her Trey is a durable power infrastructure architect for healthcare. The patient is a full code. Who is a lifelong nonsmoker. She does not use any alcohol marijuana or illicit drugs. Smoking status: Never smoker Second hand tobacco smoke exposure: No Alcohol intake: never Substance use: never Gender identity (if verbalized by the patient): Female Spiritual care concerns: No Meds Home Medications and Allergies Home Medications Medication Instructions Recorded Confirmed Type aspirin 81 mg tablet,delayed 81 mg PO DAILY 09/27/19 02/19/22 History release (Adult Aspirin Regimen) cholecalciferol (vitamin D3) 50 125 mcg PO DAILY 05/29/20 02/19/22 History mcg (2,000 unit) tablet multivitamin (Multiple Vitamins 1 tablet PO DAILY 05/29
[2022-03-13 16:57] LABS: Glucose Point of Care 184 mg/dl (65-105)
[2022-03-13 21:54] LABS: Hemoglobin A1C 6.6 % (<5.7)
[2022-03-13] MEDS: methocarbamoL 750 MG TABLET PO (21:57)
[2022-03-13] MEDS: GABAPENTIN 300 MG CAPSULE PO (21:57)
[2022-03-13] MEDS: hydrOXYzine HCL 10 MG TABLET PO (21:57)
[2022-03-13] MEDS: CIPROFLOXACIN 250 MG TABLET PO (21:57)
[2022-03-14] VITALS (7 sets, daily range): BP systolic 139–161; BP diastolic 60–72; PULSE 90–103; RESP 17–18; TEMP 36.3–37.1; O2SAT 93–95
--- NOTE | 2022-03-14 | ECHO_ITS ---
Patient Info Name: Kori Arellano Age: 76 years : 1945 Gender: Female Ht: 63 in Wt: 207 lbs BSA: 2.09 m2 HR: 101 bpm BP: 196 / 84 mmHg Heart Rhythm: Sinus Rhythm Technical Quality: Poor Exam Date: 03/14/2022 8:34 AM Exam Location: [facility] Patient Status: Inpatient Admit Date: 03/13/2022 Staff Ordering Physician: Pau Farmer NP Daub Color Mixer: Yessy Cross RDCS Attending Provider: Carmelo Gant MD Referring Physician: Darian WANG; Exam Type: CA echo dop bubble study w con Study Info Indications g40 - seizure Complete two-dimensional, color flow and Doppler transthoracic echocardiogram is performed with contrast to opacify the left ventricle and to improve the deliniation of the left ventricle endocardial borders. Complete two-dimensional, color flow and Doppler transthoracic echocardiogram is performed with agitated saline. Contrast/Agitated Saline Contrast/Ag. Saline: Definity Amount: 4.00 ml Administered By: Yessy Cross [facility] Contrast/Ag. Saline: Agitated Saline Amount: 8.00 ml Reason for Poor Study: poor patient cooperation Summary 1. Technically difficultExamination withPoorPatient cooperation. 2. Normal appearingLeft and right ventricular systolic function. 3. With mild right atrial enlargement. 4. No significant valvular dysfunction. 5. Agitated saline contrastInjection demonstrates no evidenceOf intracardiac shunt. 6. Compared to examinationFrom last year there are no differences. Left Ventricle Left ventricular chamber dimension is normal. Left ventricular systolic function is normal, estimated at 60-65%. The left ventricular diastolic function is grade I diastolic dysfunction. Right Ventricle Right ventricular chamber dimension is normal. Left Atria Left atrial chamber dimension is normal. Right Atria Right atrial chamber dimension is mildly enlarged. Atrial Septum Intact interatrial septum visualized by agitated saline imaging. Aortic Valve There is mild aortic valve sclerosis. Pulmonic Valve The pulmonic valve is not well visualized. Mitral Valve The mitral valve has normal leaflets. There is trace mitral valve regurgitation. Tricuspid Valve The tricuspid valve leaflets are normal. Pericardium/Pleural The pericardium appears normal. Aorta The aortic root size at the sinus of Valsalva is normal. Left Ventricular Outflow Tract Name Value Normal LVOT 2D LVOT Diameter 2.1 cm LVOT Doppler LVOT Peak Gradient 4 mmHg LVOT Mean Gradient 3 mmHg LVOT VTI 17 cm LVOT VTI/AV VTI Ratio 0.8 LVOT Stroke Volume 58 ml LVOT CO 5.4 l/min LVOT CI 2.6 l/min/m2 Pulmonic Valve Name Value Normal
[2022-03-14 08:03] LABS: Glucose Point of Care 180 mg/dl (65-105)
[2022-03-14 08:11] LABS: Alanine Aminotransferase 15 U/L (6-35); Albumin Level 3.9 g/dL (3.5-5.1); Alkaline Phosphatase 85 U/L (38-126); Anion Gap 8 mmol/L (8-16); Aspartate Amino Transferase 25 U/L (14-36); Bilirubin,Total 0.5 mg/dL (0.2-1.3); Blood Urea Nitrogen 39 mg/dL (7-17); Calcium 8.6 mg/dL (8.4-10.2); Carbon Dioxide 22 mmol/L (22-30); Chloride 112 mmol/L (98-107); Estimated CRCL calculation 20 ml/min; Estimated Glomerular Filt Rate 21; Glucose 164 mg/dL (65-110); Magnesium 1.9 mg/dL (1.6-2.3); Potassium 4.4 mmol/L (3.4-5.0); Sodium 142 mmol/L (137-145)
[2022-03-14 08:12] LABS: Lactic Acid Reflex 0.8 mmol/L (0.7-2.0)
[2022-03-14] MEDS: PERFLUTREN LIPID MICROSPHERES 1.5 ML VIAL DILUTED TO 10 ML TOTAL VOLUME IV PUSH (09:00)
--- NOTE | 2022-03-14 09:18 | PCPTNOTE ---
Attempted to do physical therapy, but sarai reports she just wants to rest and be left alone, will try again tomorrow or today if time permits.
[2022-03-14 09:30] LABS: Basophils Percent Auto 0.4 % (0.2-1.2); Eosinophils Absolute Auto 0.1 K/mm3 (0-0.3); Eosinophils Percent Auto 1.5 % (0-4.4); Hematocrit 34.9 % (37.0-47.0); Hemoglobin 10.6 g/dL (12.0-15.0); Immature Granulocyte Absolute 0.03 K/mm3 (0.00-0.031); Immature Granulocyte Percent A 0.4 % (0-0.5); Lymphocytes Absolute Auto 2.12 K/mm3 (0.9-3.2); Lymphocytes Percent Auto 28.3 % (18.3-44.2); Mean Corpuscular HGB Conc 30.4 g/dl (32-36); Mean Corpuscular Hemoglobin 27.2 pg (26-34); Mean Corpuscular Volume 89.5 fl (80-100); Mean Platelet Volume 10.4 fl (7.4-10.4); Monocytes Absolute Auto 0.7 K/mm3 (0.1-0.6); Monocytes Percent Auto 8.8 % (2.6-8.5); Neutrophils Absolute Auto 4.5 K/mm3 (1.3-6.7); Neutrophils Percent Auto 60.6 % (45.5-73.1); Platelet Count Result 255 k/mm3 (150-375); Red Cell Distribution Width 16.7 % (11.5-14.5); White Blood Count 7.5 K/mm3 (4.5-10.0)
--- NOTE | 2022-03-14 09:45 | WPDNEUROPN ---
Progress Note: A&P Assessment and Plan (1) Altered mental status: Code(s): R41.82 - Altered mental status, unspecified Status: Acute Plan Kori Arellano is a 76 year old female with a history of type 2 diabetes, HTN, HLD, CHF who presented with altered mental status. She still does not appear at baseline. No obvious infectious or metabolic cause of encephalopathy. MRI brain is negative for acute stroke. EEG shows findings consistent with encephalopathy. Patient was on gabapentin and oxycodone at home, not sure if this is related to her medications. There has been some improvement in mental status, but she is still not at baseline. - family is still concerned about UTI. UA done yesterday is not suggestive of infection to me, but we can repeat a UA today. Family expressed that she is having the urge to urinate but hasn't been able to do so today - If infectious work-up of urine and stool is unrevealing and mental status does not improve, my recommendation would be to perform lumbar puncture to evaluate for encephalitis/meningitis Subjective Date/time seen: 03/14/22 09:45 Interval history: Kori Arellano is a 76 year old female with a history of type 2 diabetes, HTN, HLD, CHF who presents due to altered mental status. Her last known well as yesterday at 10pm. Patient apparently woke up confused this morning. reported that he found her in the bathroom and she told him at the time she couldn't see anything. She was brought in by EMS. On arrival she appeared anxious and was complaining of abdominal pain and nausea. Patient reports she lost control of her kidneys. When asked if that meant she urinated on herself, she reported yes. She has also been having diarrhea. Patient denied any visual concerns by the time she was in the ED. She did appear very anxious, so she was given a dose of Ativan 0.5mg daily. Her work-up including CT head and labs including UA have been unrevealing. At baseline she is AOx3, per family. Per hospitalist, patient notably had a shuffling gait when trying to ambulate earlier. Patient reports using walker at home. She denies frequent falls. MRI brain completed and normal. Family at bedside this morning. They feel that she is improved but still not at baseline. It is taking longer than usual for her to answer certain questions. Daughter reports that patient has had similar episodes of confusion when she has had UTIs in the past. Patient denies any complaints this morning. Review of Systems Constitutional: Constitutional: Reports no additional constitutional complaints Eyes: Eyes: Reports no additional eye complaints ENT: Reports system reviewed and no additional complaints, except as documented Cardiovascular: Cardiovascular: Reports no additional cardiovascular complaints Respiratory: Respiratory: Reports no additional respiratory complaints Gastrointestinal: Gastrointestinal: Reports diarrhea Genitourinary: Genitourinary: Reports no additional female genitourinary complaints Musculoskeletal: Musculoskeletal: Reports no additional musculoskeletal complaints Integumentary/Breasts: Skin/Breast: Reports system reviewed and no additional complaints, except as docu Neurologic: Reports confusion Psychiatric: Psychiatric: Reports no additional psychiatric complaints Exam Const: General: comfortable and no acute distress HENMT: Mouth: Yes moist mucous membranes Eyes: Pupils: Equal, round and reactive pupils present EOM: EOMs intact bilaterally Resp: Effort & Inspection: normal respiratory effort Auscultation: clear to auscultation bilaterally Cardio: Rate: regular rate Rhythm: regular rhythm GI: GI Palp: Yes Soft to palpation Auscultation: normal bowel sounds Skin: General skin exam: normal color Neuro: Other: alert and oriented to self, location, and year. She was unable to give the name of the hospital. She took a while to remember the year, which family reports is atypical for her. She was
[2022-03-14] MEDS: CHOLECALCIFEROL 1,000 UNITS TABLET 5000 UNITS PO (09:50)
[2022-03-14] MEDS: GABAPENTIN 300 MG CAPSULE PO ×4 (09:50→22:05)
[2022-03-14] MEDS: ASPIRIN 81 MG ENTERIC TABLET PO (09:50)
[2022-03-14] MEDS: CLOPIDOGREL BISULFATE 75 MG TABLET PO (09:50)
[2022-03-14] MEDS: FUROSEMIDE 40 MG TABLET PO (09:51)
[2022-03-14] MEDS: MULTIVITAMINS THERAPEUTIC TAB (*BKC) 1 TABLET PO (09:51)
[2022-03-14] MEDS: FEBUXOSTAT 40 MG TABLET PO (09:52)
[2022-03-14] MEDS: methocarbamoL 750 MG TABLET PO (09:52)
[2022-03-14] MEDS: CIPROFLOXACIN 250 MG TABLET PO ×2 (09:53→22:05)
[2022-03-14] MEDS: SIMVASTATIN 20 MG TABLET 40 MG PO (09:53)
--- NOTE | 2022-03-14 10:42 | P.NEURO_ITS ---
Neurology EEG Report General Information Date of Study: 03/13/22 TEST Routine EEG DIAGNOSIS Altered mental status, concern for seizure CONDITION OF RECORDING Encephalopathic EEG NUMBER [id number] CLINICAL HISTORY Patient was brought in yesterday due to confusion and altered mental status. Still not at baseline. EEG DESCRIPTION The recording is continuous. There is no clear posterior dominant rhythm or well defined anterior posterior gradient. The background consists of diffuse, mostly theta range activity, with occasional delta range activity as well. There are no significant asymmetries in the background. There are intermittent triphasic waves noted throughout the recording. Normal sleep architecture was not visualized. There are no epileptiform features or electrographic seizures. Activation procedures were not performed. IMPRESSION This is an abnormal routine EEG due to generalized slowing as well as intermittent triphasic waves. These findings are suggestive of non-specific ence phalopathy. There are no epileptiform features or electrographic seizures during the course of the recording. Clinical correlation is recommended.
[2022-03-14 11:53] LABS: Glucose Point of Care 214 mg/dl (65-105)
--- NOTE | 2022-03-14 11:57 | PCOTNOTE ---
Attempted OT evaluation; pt. refused stating she just wants to sleep. Will attempt again as abl
[2022-03-14] MEDS: INSULIN ASPART (*BKC) 100 UNITS/ML SUB-Q (12:27)
[2022-03-14] MEDS: CALCIUM CARBONATE (OSCAL) 500 MG TABLET PO (12:34)
[2022-03-14 13:08] LABS: Appearance Urine Clear (Clear); Bilirubin Urine Negative (Negative); Blood Urine Trace-lysed (Negative); Color Urine Yellow (Yellow); Glucose Urine UA Negative (Negative); Ketones Urine Negative (Negative); Leukocyte Esterase Ur Negative LEU/UL (NEGATIVE); Nitrate Urine Negative (Negative); Protein Urine Trace mg/dL (Negative); Urobilinogen Urine 0.2 mg/dL (<2.0); pH Urine 5.5 (5.0-9.0)
[2022-03-14 13:10] LABS: Bacteria Urine Trace /hpf; Mucus Urine Rare /lpf; RBC Urine 0-2 /hpf (0-2); Squamous Epithelial Cell Urine Few /hpf (Few)
[2022-03-14 13:11] LABS: Add Urine Microscopic? YES
[2022-03-14 13:29] LABS: Amphetamine Screen Urine Negative (Negative); Barbiturate Screen Urine Negative (Negative); Benzodiazepines Screen Urine Negative (Negative); Cannabinoid Screen Urine Negative (Negative); Cocaine Screen Urine Negative (Negative); Methadone Screen Urine Negative (Negative); Opiate Screen Urine Negative (Negative); Phencyclidine Screen Urine Negative (Negative)
--- NOTE | 2022-03-14 14:52 | PHAR ---
[id number] [place] IDENTFIED TO CONTAIN DRUG NAME: JOSE INGREDIENTS: LINAGLIPTIN -- 5 MG COLOR: LIGHT RED SHAPE: ABSENTEE-SHAWNEE IMPRINT: D5 FORM: ORAL TABLET
[2022-03-14 17:01] LABS: Glucose Point of Care 167 mg/dl (65-105)
--- NOTE | 2022-03-14 17:52 | PM.IMPN ---
Progress Note: A&P Assessment and Plan (1) Altered mental status: Code(s): R41.82 - Altered mental status, unspecified Status: Acute Assessment and Plan: Patient woke up confused. Her last known well as 10pm the evening prior to admission. She was found in the bathroom and she told her that she couldn't see anything. She was brought in by EMS. On arrival she appeared anxious and was complaining of abdominal pain and nausea. She had urine incontinence and diarrhea. Patient denied any visual concerns by the time she was in the ED. She was given Ativan 0.5mg daily. -CT head no acute findings. -MRI brain also normal. -glucose was okay -Family at bedside and feel the patient close to baseline now. -Family state similar episode when she has had UTIs. -neurology consulted and appreciate their input -EEG showing generalized slowing as well as intermittent triphasic waves to sugest encephalopathy. . -TSH normal, ammonia <20, UDS negative, UA unremarkable. -BCx NGTD Etiology unclear: symptoms better today. Consider infectious (viral encephalitis?) or seizure with post-ictal confusion. Consider global amnesia or HTN urgency. May be taking medications incorrectly. Consider also conversion disorder. Would hold on LP since she is improving. Continue to monitor. Check B12, RPR. (2) Chronic kidney disease, stage 4 (severe): Code(s): N18.4 - Chronic kidney disease, stage 4 (severe) Status: Chronic Assessment and Plan: Cr baseline is anywhere from 2.47-3.9. Renal ultrasound on 06/01/2020 showed no significant sonographic abnormality of the kidneys. -creatinine is at her baseline. -Avoid nephrotoxic medication -continue to monitor electrolytes (3) Diabetes: Code(s): E11.9 - Type 2 diabetes mellitus without complications Status: Acute Assessment and Plan: A1c 6.6. The patient's blood glucose was reviewed on 03/14 Glucose remains reasonably well controlled. Continue AccuCheks covering with sliding scale. Hypoglycemia protocol available as needed. Continue to monitor (4) Diabetic peripheral neuropathy: Code(s): E11.42 - Type 2 diabetes mellitus with diabetic polyneuropathy Status: Chronic Assessment and Plan: Stable -continue with gabapentin (5) Hyperlipidemia, unspecified: Code(s): E78.5 - Hyperlipidemia, unspecified Status: Chronic Assessment and Plan: -may consider stopping the simvastatin as she is weak. -check TCK (6) Hypertension, essential: Code(s): I10 - Essential (primary) hypertension Status: Chronic Assessment and Plan: Patient's blood pressure was reviewed on 03/14 Blood pressure remains elevated but better Will continue current medications. Subjective Date/time seen: 03/14/22 17:52 Interval history: 76yo female with DM, HTN and CHF who presents due to altered mental status. Patient has no memory of the events prior to the admission. She denies any headache, chest pain or abdominal pain currently. She does believe that she had a headache preceding her symptoms. No history of migraines. She is eating well. She normally walks with a walker or cane at home. Exam Narrative: AF 97.3 141/63 90 18 95% ra Gen - NARD sitting up in bed Chest - CTA bilaterally, nml RR CV - RRR S1/S2, Tele showing PVCs Abd - Soft, NT/ND, Positive BS, periumbilical hernia Ext - 1+ pedal edema mostly periankle and feet Neuro - Alert and oriented x4. Speech clear. Psych - Nml mood and affect Skin - Warm and dry Objective Data Vital Signs Vital Signs: Vital Signs - 24 hr 03/13/22 22:00 03/14/22 06:00 03/14/22 08:00 Temperature 99.5 F 98.7 F Pulse Rate 94 92 92 Respiratory Rate 18 18 Blood Pressure 196/84 H 161/72 H Pulse Oximetry 96 93 Oxygen Delivery 03/14/22 08:00 03/14/22 14:00 Temperature 97.3 F L Pulse Rate 92 90 Respiratory Rate 18 18 Blood Pressure 1
[2022-03-14] MEDS: hydrOXYzine HCL 10 MG TABLET PO (22:05)
[2022-03-14 23:13] LABS: Glucose Point of Care 174 mg/dl (65-105)
[2022-03-15] VITALS: PULSE 83
[2022-03-15 04:00] VITALS: PULSE 116
[2022-03-15 06:00] VITALS: BP 140/63; PULSE 110; RESP 20; TEMP 36.7; O2SAT 92
[2022-03-15 08:16] LABS: Glucose Point of Care 215 mg/dl (65-105)
[2022-03-15] MEDS: CHOLECALCIFEROL 1,000 UNITS TABLET 5000 UNITS PO (09:12)
[2022-03-15] MEDS: MULTIVITAMINS THERAPEUTIC TAB (*BKC) 1 TABLET PO (09:13)
[2022-03-15] MEDS: SIMVASTATIN 20 MG TABLET 40 MG PO (09:13)
[2022-03-15] MEDS: CIPROFLOXACIN 250 MG TABLET PO (09:13)
[2022-03-15] MEDS: GABAPENTIN 300 MG CAPSULE PO ×2 (09:13→13:37)
[2022-03-15] MEDS: FUROSEMIDE 40 MG TABLET PO (09:13)
[2022-03-15] MEDS: ASPIRIN 81 MG ENTERIC TABLET PO (09:13)
[2022-03-15] MEDS: CLOPIDOGREL BISULFATE 75 MG TABLET PO (09:13)
[2022-03-15] MEDS: FEBUXOSTAT 40 MG TABLET PO (09:13)
[2022-03-15] MEDS: INSULIN ASPART (*BKC) 100 UNITS/ML SUB-Q ×2 (09:14→13:39)
[2022-03-15 10:35] LABS: Anion Gap 7 mmol/L (8-16); Blood Urea Nitrogen 48 mg/dL (7-17); Calcium 9.1 mg/dL (8.4-10.2); Carbon Dioxide 26 mmol/L (22-30); Chloride 110 mmol/L (98-107); Creatine Kinase 82 U/L (30-135); Estimated CRCL calculation 17 ml/min; Estimated Glomerular Filt Rate 16; Glucose 185 mg/dL (65-110); Potassium 4.5 mmol/L (3.4-5.0); Sodium 143 mmol/L (137-145)
--- NOTE | 2022-03-15 10:55 | WPDNEUROPN ---
Progress Note: A&P Assessment and Plan (1) Altered mental status: Code(s): R41.82 - Altered mental status, unspecified Status: Acute Plan Kori Arellano is a 76 year old female with a history of type 2 diabetes, HTN, HLD, CHF who presented with altered mental status. She still does not appear at baseline. No obvious infectious or metabolic cause of encephalopathy. MRI brain was negative for acute stroke. EEG showed findings consistent with encephalopathy. Patient was on gabapentin and oxycodone at home, not sure if the confusion/behavior change was related to her medications. There could be functional component as well given recent stressors. Patient is now back to baseline. - No further neurological work-up needed Subjective Date/time seen: 03/15/22 10:55 Interval history: Kori Arellano is a 76 year old female with a history of type 2 diabetes, HTN, HLD, CHF who presents due to altered mental status. Her last known well as yesterday at 10pm. Patient apparently woke up confused this morning. reported that he found her in the bathroom and she told him at the time she couldn't see anything. She was brought in by EMS. On arrival she appeared anxious and was complaining of abdominal pain and nausea. Patient reports she lost control of her kidneys. When asked if that meant she urinated on herself, she reported yes. She has also been having diarrhea. Patient denied any visual concerns by the time she was in the ED. She did appear very anxious, so she was given a dose of Ativan 0.5mg daily. Her work-up including CT head and labs including UA have been unrevealing. At baseline she is AOx3, per family. Per hospitalist, patient notably had a shuffling gait when trying to ambulate earlier. Patient reports using walker at home. She denies frequent falls. MRI brain completed and normal. Repeat UA was normal. at bedside this morning. He feels that patient is back to baseline. Patient expressed that she feels more like herself today. She reports increased stress over the past week due to her son having to go to court for custody of her grandson. Review of Systems Constitutional: Constitutional: Reports no additional constitutional complaints Eyes: Eyes: Reports no additional eye complaints ENT: Comments: sore throat Cardiovascular: Cardiovascular: Reports no additional cardiovascular complaints Respiratory: Respiratory: Reports no additional respiratory complaints Gastrointestinal: Gastrointestinal: Reports nausea Genitourinary: Genitourinary: Reports no additional female genitourinary complaints Musculoskeletal: Musculoskeletal: Reports myalgias Integumentary/Breasts: Skin/Breast: Reports system reviewed and no additional complaints, except as docu Neurologic: Reports as per HPI Psychiatric: Psychiatric: Reports anxiety Exam Const: General: comfortable and no acute distress HENMT: Mouth: Yes moist mucous membranes Eyes: Pupils: Equal, round and reactive pupils present EOM: EOMs intact bilaterally Resp: Effort & Inspection: normal respiratory effort Auscultation: clear to auscultation bilaterally Cardio: Rate: regular rate Rhythm: regular rhythm GI: GI Palp: Yes Soft to palpation Auscultation: normal bowel sounds Skin: General skin exam: normal color Neuro: Other: AOx3. PERRL, EOMI, face is symmetric. Strength and sensation are symmetric and intact. FNF is normal bilaterally. Comprehension and fluency are intact. Psych: Mental Status: mental status grossly normal Affect: normal affect Objective Data Vital Signs Vital Signs: Vital Signs - 24 hr 03/14/22 14:00 03/14/22 12:00 03/14/22 16:00 Temperature 36.3 C L Pulse Rate 90 90 90 Respiratory Rate 18 Blood Pressure 141/63 H Pulse Oximetry 95 Oxygen Delivery 03/14/22 21:30 03/14/22 22:00 03/14/22 20:00 Temperature 36.6 C Pulse Rate 95 103 H Respiratory Rate 17 Blood Pressure 139/60 Pulse Oximetry 93
[2022-03-15 11:44] LABS: Folic Acid 4.3 ng/mL (2.76->20)
[2022-03-15 12:00] VITALS: PULSE 106
[2022-03-15 12:21] LABS: Glucose Point of Care 212 mg/dl (65-105)
[2022-03-15] MEDS: CYANOCOBALAMIN INJ 1,000 MCG/ML VIAL 1000 MCG IM (13:41)
[2022-03-15 14:00] VITALS: BP 108/64; PULSE 97; RESP 20; TEMP 35.9; O2SAT 97
--- NOTE | 2022-03-15 14:59 | PM.DS ---
DS: Admitting Diagnosis Discharge Date 03/15/22 Admitting Diagnosis Altered mental status DS: Discharge Diagnosis Discharge Diagnosis (1) Altered mental status: Code(s): R41.82 - Altered mental status, unspecified Status: Acute (2) Chronic kidney disease, stage 4 (severe): Code(s): N18.4 - Chronic kidney disease, stage 4 (severe) Status: Chronic (3) Diabetes: Code(s): E11.9 - Type 2 diabetes mellitus without complications Status: Acute (4) Diabetic peripheral neuropathy: Code(s): E11.42 - Type 2 diabetes mellitus with diabetic polyneuropathy Status: Chronic (5) Hyperlipidemia, unspecified: Code(s): E78.5 - Hyperlipidemia, unspecified Status: Chronic (6) Hypertension, essential: Code(s): I10 - Essential (primary) hypertension Status: Chronic DS: Summary Hospital Course Reason for hospitalization: 76yo female with DM, HTN and? CHF who presents due to altered mental status. Please see H&P for details. Hospital Course: Patient woke up confused. Her last known well was 10pm the evening prior to admission. She was found in the bathroom and she told her that she couldn't see anything. She was brought in by EMS. On arrival she appeared anxious and was complaining of abdominal pain and nausea. She had urine incontinence and diarrhea. Patient denied any visual concerns by the time she was in the ED. She was given Ativan 0.5mg in the ED. CT head no acute findings. MRI brain also normal. Glucose was okay. Family state similar episode when she has had UTIs. Neurology consulted and appreciate their input. EEG showing generalized slowing as well as intermittent triphasic waves to suggest encephalopathy. TSH normal, ammonia <20, UDS negative, UA unremarkable and Folate normal. B12 level was low end of normal so B12 IM given. RPR pending. BCx NGTD. Etiology unclear: consider infectious (viral encephalitis?) or seizure with post-ictal confusion. Consider global amnesia or HTN urgency. May be taking medications incorrectly. Consider also conversion disorder. Patient's mental status improved with supportive care. Family at bedside and felt the patient close to baseline now. Cr baseline is anywhere from 2.47-3.9. Renal ultrasound on 06/01/2020 showed no significant sonographic abnormality of the kidneys.?Creatinine remained at her baseline. A1c 6.6. The patient's blood glucose was monitored closely with AccuCheks covering with sliding scale.? Hypoglycemia protocol was available as needed.? She worked with therapy and was able to take a few steps to the bedside commode. This is the patient's baseline per family and they feel comfortable taking the patient home. Plan for knee injections to help with her chronic arthritis. They are agreeable for home health and this was arranged. Patient overall did well and was able to be discharged home on 03/15/2022. Status at Discharge Cognitive/behavioral status at discharge: Stable Time Spent with Patient Time attestation: Total time spent providing and/or coordinating discharge services: 34 minutes Time spent: Greater than 30 minutes Exam Narrative: No CP or SOB. No cough. Family feel the leg edema better AF 98.1 140/63 110 20 92% ra Gen - NARD sitting up in bed Chest -left basilar rhonchi o/w clear CV - RRR S1/S2, Tele showing PVCs Abd - Soft, NT/ND, Positive BS Ext - 1+ pedal edema mostly involving the feet Neuro - Alert and oriented x4. Speech clear. Nonfocal Psych - Nml mood and affect Skin - Warm and dry DS: Data Data Completed and Pending Labs on day of discharge: Labs from last 24 hours 03/15/22 03/15/22 03/15/22 12:18 08:09 06:25 Sodium Potassium Chloride Carbon Dioxide Anion Gap BUN Creatinine Estim Creat Clear Calc Estimated GFR Glucose POC Capillary Glucose 212 H 215 H Calcium Total Creatine Kinase Vitamin B12 Folate RPR Pendi
[2022-03-16 10:01] LABS: Rapid Plasma Reagin Non-Reactive (NonReactive)
--- NOTE | 2022-03-21 13:14 | PC.NURSE ---
RPR and blood cx are negative. Dr. Alfreda cabrera.
== END 2022-03-15 16:30 | disposition home health service (06) ==
LOC: ANHED 10:46 → ANH3MEDSUR 12:29
PROVIDERS: Emergency Medicine; Nurse Practitioner; Student in an Organized Health Care Education/Training Program; Admitting Provider Internal Medicine; Emergency Provider General Practice; PCP Internal Medicine; Visit Provider Internal Medicine
DX: R41.82 Altered mental status, unspecified (principal); D64.9 Anemia, unspecified; I13.0 Hypertensive heart and chronic kidney disease with heart failure and stage 1 through stage 4 chronic kidney disease, or unspecified chronic kidney disease; E11.22 Type 2 diabetes mellitus with diabetic chronic kidney disease; N18.4 Chronic kidney disease, stage 4 (severe); I50.9 Heart failure, unspecified; E11.65 Type 2 diabetes mellitus with hyperglycemia; E11.42 Type 2 diabetes mellitus with diabetic polyneuropathy; I25.10 Atherosclerotic heart disease of native coronary artery without angina pectoris; Z95.5 Presence of coronary angioplasty implant and graft; I67.2 Cerebral atherosclerosis; R94.01 Abnormal electroencephalogram [EEG]; G93.41 Metabolic encephalopathy; K42.9 Umbilical hernia without obstruction or gangrene; Z20.822 Contact with and (suspected) exposure to COVID-19; K40.90 Unilateral inguinal hernia, without obstruction or gangrene, not specified as recurrent; E78.5 Hyperlipidemia, unspecified; K44.9 Diaphragmatic hernia without obstruction or gangrene; I27.20 Pulmonary hypertension, unspecified; R19.7 Diarrhea, unspecified; Z79.82 Long term (current) use of aspirin; Z79.02 Long term (current) use of antithrombotics/antiplatelets; Z79.891 Long term (current) use of opiate analgesic; Z79.899 Other long term (current) drug therapy; Z84.89 Family history of other specified conditions; Z83.3 Family history of diabetes mellitus; Z82.49 Family history of ischemic heart disease and other diseases of the circulatory system
CPT/HCPCS: 36415; 36600; 70450; 70551; 71045; 74176; 80048; 80053; 80307; 81001; 82140; 82375; 82550; 82607; 82746; 82805; 82948; 83036; 83050; 83605; 83690; 83735; 84443; 84484; 85025; 85610; 85730; 86592; 87040; 87502; 93005; 93970; 95816; 96372; 96374; 96375; 97161; 97166; 97530; 99285; A9270; C8929; G0378; J1815; J2060; J2405; J3420; J7030; Q9957; U0003; U0005

== ENCOUNTER 2022-07-03 10:05 | Outpatient (CLI) | payer OTHER, SELFPAY ==
--- NOTE | ~2022-07-03 | US_ITS ---
US abdomen complete DATE: 07/03/2022 11:20 INDICATION: Epigastric abdominal pain TECHNIQUE: Real-time imaging and Doppler analysis of the abdomen COMPARISON: 03/13/2022 CT abdomen pelvis FINDINGS: No hepatic or pancreatic space-occupying mass lesion is evident. Normal hepatopedal portal venous flow direction. The gallbladder is surgically absent. The common bile duct measures 5.4 mm, normal. The pancreatic duct is mildly prominent, measuring almo st 4 mm diameter. The right kidney is unremarkable. No hydronephrosis of either kidney. Left renal atrophy. Approximately 1.4 cm left renal cyst. The abdominal aorta is of normal caliber. Inferior vena cava is unremarkable. IMPRESSION: Interval mild pancreatic duct prominence since 03/13/2022. Consider CT abdomen pelvis and/ or MRCP for further evaluation Status post cholecystectomy Left renal atrophy 1.4 cm left renal cyst Reviewed, dictated and finalized at [facility]. Reviewed, dictated and finalized at [facility]. IMPRESSION: Interval mild pancreatic duct prominence since 03/13/2022. Consider CT abdomen pelvis and/or MRCP for further evaluation Status post cholecystectomy Left renal atrophy 1.4 cm left renal cyst
== END 2022-07-03 10:06 | disposition home or self-care (01) ==
LOC: ANHIMG 10:11
PROVIDERS: PCP Internal Medicine; Visit Provider Nurse Practitioner Family
DX: R10.13 Epigastric pain (principal); N28.1 Cyst of kidney, acquired; Z90.49 Acquired absence of other specified parts of digestive tract
CPT/HCPCS: 76700

== ENCOUNTER 2022-10-25 14:19 | Emergency (ER) | payer OTHER, SELFPAY ==
--- NOTE | ~2022-10-25 | US_ITS ---
US transvaginal DATE: 10/25/2022 15:10 INDICATION: Vaginal bleeding TECHNIQUE: Transvaginal imaging only COMPARISON: None FINDINGS: Examination is limited due to shadowing from prominent calcifications at the uterine cervix . The central endometrial echo complex measures approximately 4 mm AP dimension. No obvious uterine or adnexal mass lesion or free fluid is detected. IMPRESSION: Limited examination Reviewed, dictated and finalized at [facility]. Reviewed, dictated and finalized at location [facility]. IMPRESSION: Limited examination
--- NOTE | ~2022-10-25 | CT_ITS ---
EXAMINATION: CT abdomen pelvis wo con DATE: 10/25/2022 16:07 INDICATION: Abdominal pain TECHNIQUE: Computed tomography (CT) of the abdomen and pelvis was performed without intravenous contr ast. Automated exposure control and iterative reconstruction technique were employed. Exam dose: 113 2.12 mGy-cm total exam DLP. COMPARISON: 03/13/2022 CT abdomen pelvis FINDINGS: The lung bases are clear of infiltrate or consolidation. Cardiomegaly. No pericardial or pl eural effusion. Small sliding hiatal hernia. Status post cholecystectomy. No hepatic, splenic, pancreatic, and adrenal space-occupying mass lesion is evident. No bile duct or pancreatic duct dilatation. There is mild calcification at the pancreatic head and tail, consistent with mild chronic pancreatiti s. There is diffuse left renal atrophy compared to the right kidney. Stable approximately 1.6 cm anterior lower pole left renal cyst. 1.7 cm exophytic lower pole left elia al cyst. 7 mm posterior hyperdense left renal exophytic cyst. No right renal mass lesion is noted. No urinary tract calculus or hydroureteronephrosis. The urinary bladder is very distended. Diffuse mildly thickened urinary bladder wall may be due to un derdistention; cystitis is not excluded. Calcifications in the lower uterine segment/cervical area, likely fibroid in nature. No ovarian mass lesion is noted. Diverticulosis of left and to a lesser extent right colon; no CT evidence of diverticulitis. No bowel obstruction or intraperitoneal free air. The appendix is normal. There is atherosclerotic calcification but normal caliber of the abdominal aorta. No intraperitoneal or retroperitoneal or pelvic mass lesion or adenopathy or ascites is detected. Bilateral fat-containing inguinal hernias. Approximately 2 x 3.2 cm left periumbilical fat-containing hernia Osteopenia. Degenerative spurring of the thoracic spine and multilevel degenerative disc disease of the lumbar sp ine. Degenerative change at the lumbar apophyseal joints with associated slight grade 1 anterolisthes is at L4-5. No suspicious osteolytic or osteoblastic lesions are noted. IMPRESSION: Small sliding hiatal hernia Status post cholecystectomy Mild chronic pancreatitis Left renal cysts Diverticulosis of left and right colon; no CT evidence of diverticulitis Reviewed, dictated and finalized at [facility]. Reviewed, dictated and finalized at location [facility].
[2022-10-25 14:20] VITALS: BP 154/89; PULSE 104; RESP 20; TEMP 36.4; O2SAT 97
--- NOTE | 2022-10-25 14:41 | ECG_ITS ---
Measurements Intervals [place] Rate: 96 P: 22 NC: 150 QRS: 24 QRSD: 65 T: 36 QT: 324 QTc: 411 Interpretive Statements SINUS RHYTHM BASELINE ARTIFACT- III, AVL, AVF NORMAL ECG COMPARED TO ECG 03/13/2022 07:23:29 NO SIGNIFICANT CHANGES Electronically Signed On 10-25-2022 16:23:27 CDT by Darnell Ames D.O.
--- NOTE | 2022-10-25 14:49 | ED.FEMALEGU ---
HPI - Female Genitourinary General Chief complaint: Vaginal Bleeding Stated complaint: vaginal bleeding Time Seen by Provider: 10/25/22 14:33 Source: patient Mode of arrival: ambulatory Limitations: no limitations History of Present Illness HPI Narrative: 77-year-old female history of congestive heart failure chronic kidney disease, diabetes, hypertension, PAD, pulmonary hypertension presents today with complaints of nausea. Patient was seen by her primary care provider on for concerns of vaginal bleeding. Patient states today she thinks the nausea is caused by the vaginal bleeding. Patient is currently not bleeding. Does have some plaints of generalized abdominal pain with nausea. Denies any vomiting. Denies burning on urination or more frequent urination. Denies fevers, body aches, chills. Related Data Home Medications Medication Instructions Recorded Confirmed aspirin 81 mg tablet,delayed 81 mg PO DAILY 09/27/19 10/22/22 release (Adult Aspirin Regimen) cholecalciferol (vitamin D3) 50 125 mcg PO DAILY 05/29/20 10/22/22 mcg (2,000 unit) tablet multivitamin (Multiple Vitamins 1 tablet PO DAILY 05/29/20 10/22/22 tablet) nystatin 100,000 unit/gram topical 1 applic topical BID PRN Rash 10/27/21 10/22/22 powder Allergies Allergy/AdvReac Type Severity Reaction Status Date / Time codeine Allergy Intermediate Rash Verified 10/25/22 14:20 Penicillins Allergy Intermediate Rash Verified 10/25/22 14:20 Sulfa (Sulfonamide Allergy Intermediate cheeks get Verified 10/25/22 14:20 Antibiotics) really red PMFSH Past Medical History Medical History NATE (acute kidney injury) Anemia CHF (congestive heart failure), NYHA class I Chronic kidney disease, stage 4 (severe) Coronary artery disease involving [place] heart without angina pectoris Diabetic peripheral neuropathy Hyperlipidemia, unspecified Hypertension, essential Metabolic acidosis PAD (peripheral artery disease) Postmenopausal Psychogenic formication Pulmonary HTN Sepsis Thrombosed external hemorrhoid Type 2 diabetes mellitus with hyperglycemia Surgical History Surgical History H/O heart artery stent History of cholecystectomy Hx of tonsillectomy Family History Family History Mother Cerebrovascular accident Diabetes mellitus Family history of cardiovascular disease Father Myocardial infarction Sibling Colon cancer Congestive heart failure Other Hypertension Social History Social History Social History: The patient had 3 children. 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 Her Trey is the durable power multifocal button generator for healthcare. The patient is a full code. Who is a lifelong nonsmoker. She does not use any alcohol marijuana or illicit drugs. Code status full code Smoking status: Never smoker Second hand tobacco smoke exposure: No Alcohol intake: never Substance use: never Lack of Transportation: No Lack of Food: Never True Current Housing: I Have Housing Concerned About Future Housing: No Difficulty Paying Gas/Electric Bills: No Difficulty Paying for Meds: No Currently Unemployed: No Education: Grade School Difficulty w/ Childcare or Family Care: No Living arrangements: with family Occupation/Education: retired Gender identity (if verbalized by the patient): Female Spiritual care concerns: No Exam Const: General: cooperative, healthy appearing, comfortable, no acute distress and well developed Orientation/consciousness: patient oriented x3 HENMT: Head: normal to inspection Eyes: General: appearance normal, both eyes and all related structures Resp: Effort & Inspection: normal respiratory effort and able to s
[2022-10-25] MEDS: ONDANSETRON INJ 4 MG/2 ML VIAL IV PUSH (15:14)
[2022-10-25] MEDS: FAMOTIDINE 20 MG/2 ML VIAL IV PUSH (15:14)
[2022-10-25 15:22] LABS: Basophils Percent Auto 0.4 % (0.2-1.2); Eosinophils Absolute Auto 0.1 K/mm3 (0-0.3); Eosinophils Percent Auto 1.4 % (0-4.4); Hematocrit 36.8 % (37.0-47.0); Hemoglobin 11.3 g/dL (12.0-15.0); Immature Granulocyte Absolute 0.02 K/mm3 (0.00-0.031); Immature Granulocyte Percent A 0.3 % (0-0.5); Lymphocytes Absolute Auto 1.41 K/mm3 (0.9-3.2); Lymphocytes Percent Auto 19.9 % (18.3-44.2); Mean Corpuscular HGB Conc 30.7 g/dl (32-36); Mean Corpuscular Hemoglobin 27.6 pg (26-34); Mean Platelet Volume 9.6 fl (7.4-10.4); Monocytes Absolute Auto 0.5 K/mm3 (0.1-0.6); Monocytes Percent Auto 7.4 % (2.6-8.5); Neutrophils Percent Auto 70.6 % (45.5-73.1); Platelet Count Result 233 k/mm3 (150-375); Red Blood Count 4.09 M/mm3 (4.2-5.4); White Blood Count 7.1 K/mm3 (4.5-10.0)
[2022-10-25 15:32] LABS: Lactic Acid Reflex 1.1 mmol/L (0.7-2.0)
[2022-10-25 15:38] LABS: Prothrombin Time 13.1 Seconds (11.1-14.7)
[2022-10-25 15:39] LABS: Partial Thromboplastin Time 24.4 SECONDS (22.3-36.8)
[2022-10-25 15:43] LABS: Troponin I < 0.012 ng/mL (0.000-0.034)
[2022-10-25 15:47] LABS: Alanine Aminotransferase 24 U/L (6-35); Albumin Level 4.1 g/dL (3.5-5.1); Alkaline Phosphatase 74 U/L (38-126); Anion Gap 10 mmol/L (8-16); Aspartate Amino Transferase 32 U/L (14-36); Bilirubin,Total 0.5 mg/dL (0.2-1.3); Blood Urea Nitrogen 30 mg/dL (7-17); Calcium 9.5 mg/dL (8.4-10.2); Carbon Dioxide 19 mmol/L (22-30); Chloride 110 mmol/L (98-107); Estimated CRCL calculation 23 ml/min; Estimated Glomerular Filt Rate 24; Glucose 138 mg/dL (65-110); Potassium 4.9 mmol/L (3.4-5.0); Sodium 139 mmol/L (137-145)
[2022-10-25 15:58] LABS: Appearance Urine Turbid (Clear); Bacteria Urine None Seen /hpf; Bilirubin Urine Negative (Negative); Blood Urine Trace (Negative); Color Urine Yellow (Yellow); Glucose Urine UA Negative (Negative); Ketones Urine Trace mg/dL (Negative); Leukocyte Esterase Ur Negative LEU/UL (Negative); Need Manual Microscopic Reviewed; Nitrate Urine Negative (Negative); Protein Urine 2+ mg/dL (Negative); RBC Urine 0-2 /hpf (0-2); Specific Grav Ur 1.017 (1.001-1.035); Squamous Epithelial Cell Urine Occasional /hpf (Few); Urobilinogen Urine 0.2 mg/dL (<2.0); WBC Urine 0-5 /hpf
[2022-10-25 15:59] LABS: Add Urine Microscopic? YES
[2022-10-25] MEDS: SODIUM CHLORIDE 0.9% IV 500 ML 999 ML IV CONT (16:24)
[2022-10-25 17:49] VITALS: BP 148/78; PULSE 94; RESP 20; O2SAT 98
== END 2022-10-25 18:04 | disposition home or self-care (01) ==
PROVIDERS: Emergency Provider Nurse Practitioner Family; PCP Family Medicine
DX: R11.0 Nausea (principal); N93.9 Abnormal uterine and vaginal bleeding, unspecified; I13.0 Hypertensive heart and chronic kidney disease with heart failure and stage 1 through stage 4 chronic kidney disease, or unspecified chronic kidney disease; E11.22 Type 2 diabetes mellitus with diabetic chronic kidney disease; N18.4 Chronic kidney disease, stage 4 (severe); I50.9 Heart failure, unspecified; E78.5 Hyperlipidemia, unspecified; I25.10 Atherosclerotic heart disease of native coronary artery without angina pectoris; E11.42 Type 2 diabetes mellitus with diabetic polyneuropathy; E11.51 Type 2 diabetes mellitus with diabetic peripheral angiopathy without gangrene; I73.9 Peripheral vascular disease, unspecified; D64.9 Anemia, unspecified; E87.20 Acidosis, unspecified; I27.20 Pulmonary hypertension, unspecified; Z95.5 Presence of coronary angioplasty implant and graft; Z90.49 Acquired absence of other specified parts of digestive tract; Z79.85 Long-term (current) use of injectable non-insulin antidiabetic drugs; K44.9 Diaphragmatic hernia without obstruction or gangrene; K86.1 Other chronic pancreatitis; N28.1 Cyst of kidney, acquired; K57.90 Diverticulosis of intestine, part unspecified, without perforation or abscess without bleeding
CPT/HCPCS: 36415; 74176; 76830; 80053; 81001; 83605; 84484; 85025; 85610; 85730; 93005; 96361; 96374; 96375; 99284; J2405; J7040

== ENCOUNTER 2023-01-01 13:54 | Inpatient (IN) | payer OTHER, SELFPAY ==
[2023-01-01] VITALS (10 sets, daily range): BP systolic 149–214; BP diastolic 70–87; PULSE 81–92; RESP 18–24; TEMP 36.2; O2SAT 91–98
--- NOTE | ~2023-01-01 | XR_ITS ---
XR hip LT 2V w AP pelvis, XR femur LT min 2V 01/01/2023 14:44 (accession [id number]), 01/01/2023 14:43 (accession [id number]) Indication: Left leg pain after fall Procedure: AP pelvis and 2 views left hip. 2 views left femur Comparison: No prior studies for comparison. Findings: There is a comminuted, displaced left femoral intertrochanteric fracture with varus angulat ion. There is lower lumbar spondylosis. There is a bladder catheter. There is severe osteoarthritis o f the left knee. No foreign bodies. Impression: 1: Comminuted, displaced left femoral intertrochanteric fracture with varus angulation. Reviewed, dictated and finalized at location [facility]. Impression: 1: Comminuted, displaced left femoral intertrochanteric fracture with varus ang ulation. Impression: 1: Comminuted, displaced left femoral intertrochanteric fracture with varus ang ulation.
--- NOTE | ~2023-01-01 | XR_ITS ---
EXAMINATION: XR chest 1V portable Exam Date/Time: 01/03/2023 13:55 CDT HISTORY: Hypoxia Comparison: 01/01/2023. RESULT: Lines, tubes, and devices: None. Lungs and pleura: Leftward rotation. Diffuse reticular opacities. Bilateral costophrenic angle blunt ing. Cardiomediastinal silhouette: Stable. Other: No acute osseous or upper abdominal finding. IMPRESSION: Mild interstitial edema. Small bilateral effusions. Reviewed, dictated and finalized at location K.
--- NOTE | ~2023-01-01 | XR_ITS ---
XR chest 1V 01/01/2023 14:44 Indication: Status post fall. Chest pain. Procedure: AP portable chest Comparison: Comparison to multiple prior studies sequentially, with oldest reviewed study dated 05/31 . Findings: Heart size upper normal. No focal air space disease, pulmonary edema, pleural effusion or s uspected pneumothorax. Impression: 1: No acute cardiopulmonary disease. Reviewed, dictated and finalized at location [facility]. Impression: 1: No acute cardiopulmonary disease.
--- NOTE | ~2023-01-01 | CT_ITS ---
EXAMINATION: CT brain wo con INDICATION: Transient alteration of awareness COMPARISON: 03/13/2022 TECHNIQUE: Standard unenhanced head CT. The dose-length product (DLP) was 605.33 mGy-cm. The mA was a djusted according to patient size. Iterative reconstruction technique was employed. FINDINGS: No acute intraparenchymal hemorrhage. No evidence of mass lesion. No evidence of acute infa rction. There is mild periventricular and subcortical hypodensity probably related to small vessel is chemic disease. There is mild prominence of the sulci and ventricles related to cerebral atrophy. Int racranial calcified cerebral atherosclerosis is noted. No extra-axial collections. No mass effect or midline shift. The orbits and soft tissues are unremarkable. The visualized sinuses and mastoid air c ells are well aerated. IMPRESSION: 1. No acute intracranial abnormality. 2. Age related findings. Reviewed, dictated and finalized at location F.
--- NOTE | ~2023-01-01 | XR_ITS ---
Portable chest x-ray Comparison: 01/03/2023 Clinical History: Emesis, aspiration Findings: Questionable minimal interstitial prominence, similar to prior exam. No new consolidation or definite pleural effusion. Cardiomediastinal silhouette is stable. Bones and soft tissues are unr emarkable. Impression: Questionable minimal interstitial prominence, similar to prior exam. No significant interval change. Reviewed, dictated and finalized at [facility]. Impression: Questionable minimal interstitial prominence, similar to prior exam. No significant interval change.
--- NOTE | ~2023-01-01 | XR_ITS ---
EXAMINATION: XR surgery orthopedic DATE: 01/05/2023 15:27 INDICATION: Left hip fracture for femoral intramedullary katya fixation. TECHNIQUE: 5 fluoroscopic images of the left hip and femur were obtained during procedure performed annita Wells. Radiologist was not present for the imaging or procedure. The amount of fluoroscopy time used during this procedure was 2.0 minutes. COMPARISON: 01/01/2023 FINDINGS: Interval open reduction internal fixation of the mildly comminuted intratrochanteric fracture of the proximal left femur with an antegrade intramedullary katya, femoral neck dynamic compression screw and distal interlocking screw fixation. Alignment post fixation appears near-anatomic. Left hip joint spa ce appears normal. No new fracture of the visualized bones. IMPRESSION: 1. Near-anatomic alignment post reduction internal fixation of a mildly comminuted intratrochanteric fracture of the proximal left femur. Reviewed, dictated and finalized at location A. IMPRESSION: 1. Near-anatomic alignment post reduction internal fixation of a mildly comminu cain intratrochanteric fracture of the proximal left femur.
--- NOTE | 2023-01-01 16:22 | ED.FALL ---
HPI - Fall General Chief Complaint: Fall Stated Complaint: left leg pain/external rotation Time Seen by Provider: 01/01/23 15:07 History of Present Illness HPI Narrative: Patient is a 77-year-old female presenting after a fall. Patient states that she is unsure why she fell but states that she felt lightheaded when she woke up. States that she had pain in her left hip and was unable to stand so EMS was called. She denies chest pain or shortness of breath. States that she continues to have a lot of pain in her left hip. No numbness or weakness. No further complaints. Related Data Home Medications Medication Instructions Recorded Confirmed aspirin 81 mg tablet,delayed 81 mg PO DAILY 09/27/19 01/01/23 release (Adult Aspirin Regimen) cholecalciferol (vitamin D3) 50 125 mcg PO DAILY 05/29/20 01/01/23 mcg (2,000 unit) tablet multivitamin (Multiple Vitamins 1 tablet PO DAILY 05/29/20 01/01/23 tablet) nystatin 100,000 unit/gram topical 1 applic topical BID PRN Rash 10/27/21 01/01/23 powder simvastatin 40 mg tablet 40 mg PO HS 01/01/23 01/01/23 Allergies Allergy/AdvReac Type Severity Reaction Status Date / Time codeine Allergy Intermediate Rash Verified 12/03/22 15:17 Penicillins Allergy Intermediate Rash Verified 01/06/23 08:21 Sulfa (Sulfonamide Allergy Intermediate cheeks get Verified 12/03/22 15:17 Antibiotics) really red Review of Systems Review of Systems: All systems reviewed & are unremarkable except as noted in HPI and below PMFSH Past Medical History Medical History NATE (acute kidney injury) Anemia CHF (congestive heart failure), NYHA class I Chronic kidney disease, stage 4 (severe) Coronary artery disease involving [place] heart without angina pectoris Diabetic peripheral neuropathy Hyperlipidemia, unspecified Hypertension, essential Intertrochanteric fracture of left hip Metabolic acidosis PAD (peripheral artery disease) Postmenopausal Psychogenic formication Pulmonary HTN Sepsis Thrombosed external hemorrhoid Type 2 diabetes mellitus with hyperglycemia Surgical History Surgical History H/O heart artery stent History of cholecystectomy Hx of tonsillectomy Family History Family History Mother Cerebrovascular accident Diabetes mellitus Family history of cardiovascular disease Father Myocardial infarction Sibling Colon cancer Congestive heart failure Other Hypertension Social History Social History Social History: The patient had 3 children. 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 Her Trey is the durable power patent prosecution attorney for healthcare. The patient is a full code. Who is a lifelong nonsmoker. She does not use any alcohol marijuana or illicit drugs. Code status full code Smoking status: Never smoker Second hand tobacco smoke exposure: No Alcohol intake: never Substance use: never Substance use type: does not use Lack of Transportation: No Lack of Food: Never True Current Housing: I Have Housing Concerned About Future Housing: No Difficulty Paying Gas/Electric Bills: No Difficulty Paying for Meds: No Currently Unemployed: No Education: High School Diploma/GED Difficulty w/ Childcare or Family Care: No Living arrangements: with family Occupation/Education: retired Gender identity (if verbalized by the patient): Female Spiritual care concerns: No Exam Narrative: GENERAL: No acute distress, pleasant and cooperative HEAD: Normocephalic, atraumatic. EYES: PERRLA and EOMI. ENT: Grossly unremarkable NECK: Supple. CHEST: Clear to auscultation. No respiratory distress. HEART: Regular rate and rhythm. Normal peripheral pulses. ABDOMEN: Soft, nontender, nondi
[2023-01-01] MEDS: HYDROmorphone HCL INJ (*CRX) 1 MG/ML SYR 0.5 MG IV PUSH (16:30)
[2023-01-01] MEDS: SODIUM CHLORIDE 0.9% IV 1,000 ML 999 ML IV CONT (16:30)
--- NOTE | 2023-01-01 17:11 | ECG_ITS ---
Measurements Intervals [place] Rate: 86 P: 56 [place]: 153 QRS: 56 QRSD: 72 T: 57 QT: 352 QTc: 422 Interpretive Statements SINUS RHYTHM NORMAL ECG COMPARED TO ECG 10/25/2022 15:17:33 NO SIGNIFICANT CHANGES Electronically Signed On 01-01-2023 20:11:19 CDT by Darnell Ames D.O.
[2023-01-01 17:42] LABS: Basophils Percent Auto 0.2 % (0.2-1.2); Eosinophils Absolute Auto 0.1 K/mm3 (0-0.3); Eosinophils Percent Auto 1.4 % (0-4.4); Hematocrit 33.3 % (37.0-47.0); Hemoglobin 9.8 g/dL (12.0-15.0); Immature Granulocyte Absolute 0.06 K/mm3 (0.00-0.031); Immature Granulocyte Percent A 0.7 % (0-0.5); Lymphocytes Absolute Auto 1.86 K/mm3 (0.9-3.2); Lymphocytes Percent Auto 20.3 % (18.3-44.2); Mean Corpuscular HGB Conc 29.4 g/dl (32-36); Mean Corpuscular Hemoglobin 27.5 pg (26-34); Mean Corpuscular Volume 93.5 fl (80-100); Mean Platelet Volume 9.3 fl (7.4-10.4); Monocytes Absolute Auto 0.5 K/mm3 (0.1-0.6); Monocytes Percent Auto 5.8 % (2.6-8.5); Neutrophils Absolute Auto 6.6 K/mm3 (1.3-6.7); Neutrophils Percent Auto 71.6 % (45.5-73.1); Platelet Count Result 246 k/mm3 (150-375); Red Blood Count 3.56 M/mm3 (4.2-5.4); Red Cell Distribution Width 16.4 % (11.5-14.5); White Blood Count 9.2 K/mm3 (4.5-10.0)
[2023-01-01 17:54] LABS: Partial Thromboplastin Time 29.1 SECONDS (22.3-36.8)
[2023-01-01 17:55] LABS: Alanine Aminotransferase 29 U/L (6-35); Albumin Level 3.5 g/dL (3.5-5.1); Alkaline Phosphatase 85 U/L (38-126); Anion Gap 3 mmol/L (8-16); Aspartate Amino Transferase 70 U/L (14-36); Bilirubin,Total 0.4 mg/dL (0.2-1.3); Blood Urea Nitrogen 44 mg/dL (7-17); Calcium 8.7 mg/dL (8.4-10.2); Carbon Dioxide 24 mmol/L (22-30); Chloride 115 mmol/L (98-107); Estimated CRCL calculation 23 ml/min; Estimated Glomerular Filt Rate 24; Glucose 138 mg/dL (65-110); Magnesium 1.9 mg/dL (1.6-2.3); Potassium 4.5 mmol/L (3.4-5.0); Sodium 142 mmol/L (137-145)
[2023-01-01 18:07] LABS: Troponin I < 0.012 ng/mL (0.000-0.034)
--- NOTE | 2023-01-01 19:40 | ADMGEN ---
This patient, Kori Arellano, was admitted to Medical Room 249-01. Patient/family oriented to hospital policies and general routines including ID bracelet, bed and alarms, visiting hours, pain management, procedures, bathroom and other care routines, personal items, smoking policy, room service/diet, and visiting hours. Information on how to activate the Rapid Response Team has been discussed. Patient/Family are encouraged to report perceived risks to care and to ask questions if they do not understand what they are told or what they should do.
--- NOTE | 2023-01-01 20:30 | PM.IMHP ---
H&P: HPI History of Present Illness Date/Time: 01/01/23 20:30 Chief Complaint: Patient fell down at home and had pain in her left hip hence EMS was called for evaluation Narrative: 77 years old white female with chronic medical issues was going to the bathroom at around 4:30 a.m. today using a walker, when she felt lightheaded and fell down with the walker. She complained of pain in the left hip and was unable to stand. EMS was called who brought the patient to the ER for evaluation. Workup was done which showed left hip fracture. She is being admitted for pain management, close monitoring and orthopedic evaluation in a.m. Review of Systems Review of Systems: she denies any chest pain, palpitations, fever rigor chills, abdominal pain, or blurred vision All systems reviewed & are unremarkable except as noted in HPI and below PMFSH Past Medical History Medical History NATE (acute kidney injury) Anemia CHF (congestive heart failure), NYHA class I Chronic kidney disease, stage 4 (severe) Coronary artery disease involving [place] heart without angina pectoris Diabetic peripheral neuropathy Hyperlipidemia, unspecified Hypertension, essential Metabolic acidosis PAD (peripheral artery disease) Postmenopausal Psychogenic formication Pulmonary HTN Sepsis Thrombosed external hemorrhoid Type 2 diabetes mellitus with hyperglycemia Surgical History Surgical History H/O heart artery stent History of cholecystectomy Hx of tonsillectomy Family History Family History Mother Cerebrovascular accident Diabetes mellitus Family history of cardiovascular disease Father Myocardial infarction Sibling Colon cancer Congestive heart failure Other Hypertension Social History Social History Social History: The patient had 3 children. 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 Her Trey is the durable power sports attorney for healthcare. The patient is a full code. Who is a lifelong nonsmoker. She does not use any alcohol marijuana or illicit drugs. Code status full code Smoking status: Never smoker Second hand tobacco smoke exposure: No Alcohol intake: never Substance use: never Substance use type: does not use Lack of Transportation: No Lack of Food: Never True Current Housing: I Have Housing Concerned About Future Housing: No Difficulty Paying Gas/Electric Bills: No Difficulty Paying for Meds: No Currently Unemployed: No Education: High School Diploma/GED Difficulty w/ Childcare or Family Care: No Living arrangements: with family Occupation/Education: retired Gender identity (if verbalized by the patient): Female Spiritual care concerns: No Meds Home Medications and Allergies Home Medications Medication Instructions Recorded Confirmed Type aspirin 81 mg tablet,delayed 81 mg PO DAILY 09/27/19 01/01/23 History release (Adult Aspirin Regimen) cholecalciferol (vitamin D3) 50 125 mcg PO DAILY 05/29/20 01/01/23 History mcg (2,000 unit) tablet multivitamin (Multiple Vitamins 1 tablet PO DAILY 05/29/20 01/01/23 History tablet) nystatin 100,000 unit/gram topical 1 applic topical BID PRN Rash 10/27/21 01/01/23 History powder cyanocobalamin (vitamin B-12) 1,000 mcg PO QAM #30 tabs 05/21/22 01/01/23 Rx 1,000 mcg tablet (Vitamin B-12) methocarbamol 750 mg tablet 750 mg PO Q6H PRN muscle spasms 08/11/22 01/01/23 Rx #45 tabs ondansetron 4 mg disintegrating 4 mg PO Q8H PRN nausea and 10/27/22 01/01/23 Rx tablet vomiting #7 tabs flash glucose scanning reader #1 ea 11/05/22 01/01/23 Rx (FreeStyle [place]onal 2 [place]) flash glucose sensor (FreeStyle #6 ea 11/05/22 01/01/23 Rx Ronal 2 Sensor kit) febuxostat 40 mg t
[2023-01-01 21:00] LABS: Glucose Point of Care 166 mg/dl (65-105)
[2023-01-01 21:04] LABS: Troponin I < 0.012 ng/mL (0.000-0.034)
[2023-01-01] MEDS: GABAPENTIN 300 MG CAPSULE PO (21:56)
[2023-01-01] MEDS: SIMVASTATIN 20 MG TABLET 40 MG PO (21:57)
[2023-01-01] MEDS: ACETAMINOPHEN 325 MG TABLET 650 MG PO (22:03)
[2023-01-02] VITALS: BP 168/89; PULSE 92; RESP 18; TEMP 36.3; O2SAT 99
[2023-01-02 01:14] LABS: Troponin I < 0.012 ng/mL (0.000-0.034)
[2023-01-02] MEDS: ACETAMINOPHEN 325 MG TABLET 650 MG PO ×3 (02:41→17:50)
[2023-01-02 04:00] VITALS: BP 185/83; PULSE 88; RESP 18; TEMP 36.4; O2SAT 98
[2023-01-02 05:52] LABS: Anion Gap 7 mmol/L (8-16); Basophils Percent Auto 0.5 % (0.2-1.2); Blood Urea Nitrogen 39 mg/dL (7-17); Calcium 9.1 mg/dL (8.4-10.2); Carbon Dioxide 21 mmol/L (22-30); Chloride 113 mmol/L (98-107); Eosinophils Absolute Auto 0.3 K/mm3 (0-0.3); Eosinophils Percent Auto 4.1 % (0-4.4); Estimated CRCL calculation 24 ml/min; Estimated Glomerular Filt Rate 26; Glucose 133 mg/dL (65-110); Hematocrit 33.6 % (37.0-47.0); Hemoglobin 9.9 g/dL (12.0-15.0); Immature Granulocyte Absolute 0.06 K/mm3 (0.00-0.031); Immature Granulocyte Percent A 0.8 % (0-0.5); Lymphocytes Absolute Auto 1.64 K/mm3 (0.9-3.2); Lymphocytes Percent Auto 21.2 % (18.3-44.2); Magnesium 1.9 mg/dL (1.6-2.3); Mean Corpuscular HGB Conc 29.5 g/dl (32-36); Mean Corpuscular Hemoglobin 27.3 pg (26-34); Mean Corpuscular Volume 92.8 fl (80-100); Mean Platelet Volume 9.8 fl (7.4-10.4); Monocytes Absolute Auto 0.5 K/mm3 (0.1-0.6); Monocytes Percent Auto 5.8 % (2.6-8.5); Neutrophils Absolute Auto 5.2 K/mm3 (1.3-6.7); Neutrophils Percent Auto 67.6 % (45.5-73.1); Phosphorus 3.5 mg/dL (2.5-4.5); Platelet Count Result 266 k/mm3 (150-375); Potassium 4.4 mmol/L (3.4-5.0); Red Blood Count 3.62 M/mm3 (4.2-5.4); Red Cell Distribution Width 16.4 % (11.5-14.5); Sodium 141 mmol/L (137-145); White Blood Count 7.7 K/mm3 (4.5-10.0)
[2023-01-02 06:03] LABS: Troponin I < 0.012 ng/mL (0.000-0.034)
--- NOTE | 2023-01-02 07:59 | PM.IMPN ---
Progress Note: A&P Assessment and Plan (1) Closed left hip fracture: Code(s): S72.002A - Fracture of unspecified part of neck of left femur, initial encounter for closed fracture Status: Acute (2) Hypertriglyceridemia: Code(s): E78.1 - Pure hyperglyceridemia Status: Acute (3) Type 2 diabetes mellitus with chronic kidney disease, without long-term current use of insulin: Code(s): E11.22 - Type 2 diabetes mellitus with diabetic chronic kidney disease Status: Acute (4) PAD (peripheral artery disease): Code(s): I73.9 - Peripheral vascular disease, unspecified Status: Acute (5) BMI 37.0-37.9, adult: Code(s): Z68.37 - Body mass index [BMI] 37.0-37.9, adult Status: Acute (6) Menopausal state: Code(s): N95.1 - Menopausal and female climacteric states Status: Acute (7) Type 2 diabetes mellitus with hyperglycemia: Code(s): E11.65 - Type 2 diabetes mellitus with hyperglycemia Status: Chronic (8) Hypertension, essential: Code(s): I10 - Essential (primary) hypertension Status: Chronic (9) Hyperlipidemia, unspecified: Qualifiers: Hyperlipidemia type: unspecified Qualified Code(s): E78.5 - Hyperlipidemia, unspecified Code(s): E78.5 - Hyperlipidemia, unspecified Status: Chronic (10) Diabetic peripheral neuropathy: Code(s): E11.42 - Type 2 diabetes mellitus with diabetic polyneuropathy Status: Chronic (11) Coronary artery disease involving [place] heart without angina pectoris: Code(s): I25.10 - Atherosclerotic heart disease of [place] coronary artery without angina pectoris Status: Acute (12) Chronic kidney disease, stage 4 (severe): Code(s): N18.4 - Chronic kidney disease, stage 4 (severe) Status: Chronic (13) Anemia: Code(s): D64.9 - Anemia, unspecified Status: Chronic (14) CHF (congestive heart failure), NYHA class I: Code(s): I50.9 - Heart failure, unspecified Status: Chronic (15) Pulmonary HTN: Code(s): I27.20 - Pulmonary hypertension, unspecified Status: Acute (16) H/O heart artery stent: Code(s): Z95.5 - Presence of coronary angioplasty implant and graft Status: Acute (17) Secondary hyperparathyroidism, not elsewhere classified: Code(s): E21.1 - Secondary hyperparathyroidism, not elsewhere classified Status: Acute Plan Patient fell down at home and had pain in her left hip hence EMS was called for evaluation XR:Comminuted, displaced left femoral intertrochanteric fracture with varus angulation. Admit patient to medical unit under full inpatient status Morphine 2 mg IV q.4 hours p.r.n. for pain Continue with home meds Orthopedic consult given for evaluation and treatment recommendations in a.m. Keep patient NPO after midnight except meds Hold off on aspirin/ NSAIDs/anti coagulation for possible surgery CKD IV Cr is stable and trends down Patient concerned about her kidney and wants to get evaluated by high school assistant principal before considering orthopedic surgery for hip repair Nephrology consult given for evaluation and treatment recommendations Patient given 1 L of IV hydration in the ER avoid nephrotoxin medication Hypertension urgency Blood pressure 185/83 Start amlodipine 10 mg daily p.o. Optimize pain management Start hydralazine 10 mg IV push Q 4 as needed with parameters Anxiety Xanax 0.25 mg p.o. t.i.d. p.r.n. given for anxiety History of CAD Monitor cardiac enzymes x3 given her history of CAD Patient denies chest pain Serial troponin x3 negative Chronic anemia Hemoglobin lower than baseline, possible due to dilution Follow CBC, stool guaiac, iron panel Continue with home meds. Monitor patient closely while admitted. Patient needs close follow up with PCP/specialists as an outpatient to address chronic medical issues. Repeat labs in a.m. Electrolyte replacement as per protocol. Alex
[2023-01-02] MEDS: GABAPENTIN 300 MG CAPSULE PO ×4 (08:18→21:07)
[2023-01-02] MEDS: hydrALAZINE HCL 20 MG/ML VIAL 10 MG IV PUSH ×2 (08:20→12:34)
[2023-01-02 08:25] LABS: Glucose Point of Care 164 mg/dl (65-105)
[2023-01-02] MEDS: ASPIRIN 81 MG ENTERIC TABLET PO (08:25)
[2023-01-02 09:40] LABS: Iron 40 ug/dL (37-170)
[2023-01-02 09:49] LABS: Percent Iron Saturation 15 % (20-50)
[2023-01-02] MEDS: MORPHINE SULFATE (*CRX) 2 MG/ML INJ IV PUSH ×2 (09:55→21:11)
[2023-01-02] MEDS: ONDANSETRON HCL ODT 4 MG TABLET PO ×2 (09:55→21:10)
[2023-01-02] MEDS: amLODIPine BESYLATE 5 MG TABLET 10 MG PO (09:55)
[2023-01-02 10:41] VITALS: O2SAT 94
[2023-01-02 11:00] VITALS: BP 180/66; PULSE 93; RESP 18; TEMP 36.8; O2SAT 92
--- NOTE | 2023-01-02 11:49 | PM.CNOR ---
Assessment and Plan Assessment and plan (1) Intertrochanteric fracture of left hip: Qualifiers: Encounter type: initial encounter Fracture type: closed Fracture alignment: displaced Qualified Code(s): S72.142A - Displaced intertrochanteric fracture of left femur, initial encounter for closed fracture Code(s): S72.142A - Displaced intertrochanteric fracture of left femur, initial encounter for closed fracture Status: Acute Plan Displaced intertrochanteric fracture left hip. Severe kidney disease. Will benefit from surgery. Conservative treatment poses significant risk. Anticipate 6 weeks rehab. I reviewed the proposed procedure. Risks, benefits, and alternatives discussed with the patient and family. High risk due to medical comorbidities discussed. Proceed with ORIF left hip with cephalomedullary nail (gamma nail) when medically cleared. Possible surgery tomorrow a.m. Await nephrology clearance. History of Present Illness HPI Consult date: 01/02/23 Chief complaint: left hip fracture Narrative: Patient complains of acute hip pain. Fell from standing height. Limited ambulator with a walker. History of stage 4 CKD, CHF, CAD, Obesity, severe knee djd. No previous hip pain. Comfortable at rest. No numbness, tingling, or other associated symptoms. Review of Systems Review of Systems: [ Denies loss of consciousness.] All systems reviewed & are unremarkable except as noted in HPI and below PMFSH Past Medical History Medical History (Updated 01/02/23 @ 11:57 by Cesar Wells MD) NATE (acute kidney injury) Anemia CHF (congestive heart failure), NYHA class I Chronic kidney disease, stage 4 (severe) Coronary artery disease involving [place] heart without angina pectoris Diabetic peripheral neuropathy Hyperlipidemia, unspecified Hypertension, essential Intertrochanteric fracture of left hip Metabolic acidosis PAD (peripheral artery disease) Postmenopausal Psychogenic formication Pulmonary HTN Sepsis Thrombosed external hemorrhoid Type 2 diabetes mellitus with hyperglycemia Surgical History Surgical History H/O heart artery stent History of cholecystectomy Hx of tonsillectomy Family History Family History Mother Cerebrovascular accident Diabetes mellitus Family history of cardiovascular disease Father Myocardial infarction Sibling Colon cancer Congestive heart failure Other Hypertension Social History Social History Social History: The patient had 3 children. 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 Her Trey is the durable power collections attorney for healthcare. The patient is a full code. Who is a lifelong nonsmoker. She does not use any alcohol marijuana or illicit drugs. Code status full code Smoking status: Never smoker Second hand tobacco smoke exposure: No Alcohol intake: never Substance use: never Substance use type: does not use Lack of Transportation: No Lack of Food: Never True Current Housing: I Have Housing Concerned About Future Housing: No Difficulty Paying Gas/Electric Bills: No Difficulty Paying for Meds: No Currently Unemployed: No Education: High School Diploma/GED Difficulty w/ Childcare or Family Care: No Living arrangements: with family Occupation/Education: retired Gender identity (if verbalized by the patient): Female Spiritual care concerns: No Meds Home Medications and Allergies Home Medications Medication Instructions Recorded Confirmed Type aspirin 81 mg tablet,delayed 81 mg PO DAILY 09/27/19 01/01/23 History release (Adult Aspirin Regimen) cholecalciferol (vitamin D3) 50 125 mcg PO DAILY 05/29/20 01/01/23 History mcg (2,000 unit) tablet multivitamin (Multi
[2023-01-02 12:03] LABS: Glucose Point of Care 159 mg/dl (65-105)
--- NOTE | 2023-01-02 12:35 | PM.CNNEP ---
Assessment and Plan Assessment and plan (1) Chronic kidney disease, stage 4 (severe): Code(s): N18.4 - Chronic kidney disease, stage 4 (severe) Status: Chronic Assessment and Plan: stable if not better than baseline baseline creatinine runs ~ 2.3 - 2.7mg.dl in the last year or so secondary to diabetes, hypertension vascular disease and age-related change (2) Intertrochanteric fracture of left hip: Qualifiers: Encounter type: initial encounter Fracture alignment: displaced Fracture type: closed Qualified Code(s): S72.142A - Displaced intertrochanteric fracture of left femur, initial encounter for closed fracture Code(s): S72.142A - Displaced intertrochanteric fracture of left femur, initial encounter for closed fracture Status: Acute Assessment and Plan: as noted by admission imaging Orthopedic recommendations reviewed tentatively plan for operative intervention tomorrow (3) Hypertension, essential: Code(s): I10 - Essential (primary) hypertension Status: Chronic Assessment and Plan: reasonable control at this time follow trend of hemodynamics (4) Anemia: Code(s): D64.9 - Anemia, unspecified Status: Chronic Assessment and Plan: partly due to CKD follow trend of H/H may need Epogen while hospitalized (5) Type 2 diabetes mellitus with hyperglycemia: Code(s): E11.65 - Type 2 diabetes mellitus with hyperglycemia Status: Chronic Assessment and Plan: follow accu-cheks glycemic control per hospitalists I had a long and extensive discussion (greater than 20 min) with the patient regarding her kidney disease and the necessity of surgical intervention for her left hip fracture as well as reviewing her most recent labs with her. From a renal perspective, the patient is medically cleared to proceed with left hip ORIF with cephalomedullary nail placement with the understanding that patients with chronic kidney disease have mildly higher rates of complications for the procedure such as hemodynamic and infectious issues but she is at baseline risk. I will continue to follow the patient with you while she remains hospitalized to make further recommendations as needed. Thank you for allowing me to participate in the care of this patient. History of Present Illness Reason for Consult Consult date: 01/02/23 Reason for consult: chronic renal failure Chief Complaint Chief complaint: left hip fracture History of Present Illness Narrative: The patient is a 77-year-old female with a past medical history as outlined below who presented to [facility] Emergency room status post fall. The patient was going to the bathroom at around 4:30 a.m. this morning while using her walker when she apparently fell after feeling lightheaded. Following the fall, she noted immediate pain in her left hip and was unable to stand. EMS was called and the patient was brought to the emergency room for further assessment. Workup and evaluation in the emergency room demonstrated the patient to be mildly hypotensive but this improved following IV fluid resuscitation. Routine blood test demonstrated labs consistent with her known history of chronic kidney disease with no critical electrolyte abnormalities and her CBC was only notable for mild anemia. Subsequent imaging studies including a head CT was negative for any acute intracranial pathology and subsequent x-rays demonstrated a comminuted, displaced left femoral intertrochanteric fracture with varus angulation. given these imaging findings in conjunction with her complex medical history, she was admitted for pain control and further evaluation and therapy. Since her admission, her pain control seems to be reasonable and Orthopedic surgery has already seen the patient and is recommending surgical repair of her left hip fracture. Renal consultation was requested due to her known histo
[2023-01-02 15:05] VITALS: BP 128/57; PULSE 97; RESP 18; TEMP 36.6; O2SAT 93
[2023-01-02] MEDS: OMEGA 3 POLYUNSAT FATTY ACIDS 1 GM CAP 2 GM PO (16:45)
[2023-01-02 16:50] LABS: Glucose Point of Care 171 mg/dl (65-105)
[2023-01-02] MEDS: SIMVASTATIN 20 MG TABLET 40 MG PO (21:07)
[2023-01-02] MEDS: methocarbamoL 750 MG TABLET PO (21:12)
[2023-01-02 21:14] VITALS: BP 135/57; PULSE 78; RESP 16; TEMP 36.6; O2SAT 98
[2023-01-02 21:28] LABS: Glucose Point of Care 196 mg/dl (65-105)
[2023-01-03] VITALS (12 sets, daily range): BP systolic 130–161; BP diastolic 50–84; PULSE 60–108; RESP 14–20; TEMP 36.4–36.6; O2SAT 97–100; BMI 36.5
[2023-01-03 05:43] LABS: Basophils Percent Auto 0.3 % (0.2-1.2); Eosinophils Absolute Auto 0.2 K/mm3 (0-0.3); Eosinophils Percent Auto 1.8 % (0-4.4); Hematocrit 38.1 % (37.0-47.0); Hemoglobin 10.7 g/dL (12.0-15.0); Immature Granulocyte Percent A 0.9 % (0-0.5); Lymphocytes Absolute Auto 1.57 K/mm3 (0.9-3.2); Lymphocytes Percent Auto 13.5 % (18.3-44.2); Mean Corpuscular HGB Conc 28.1 g/dl (32-36); Mean Corpuscular Hemoglobin 27.2 pg (26-34); Mean Corpuscular Volume 96.9 fl (80-100); Mean Platelet Volume 10.2 fl (7.4-10.4); Monocytes Absolute Auto 0.7 K/mm3 (0.1-0.6); Neutrophils Percent Auto 77.5 % (45.5-73.1); Nucleated Red Blood Cells Perc 0.2 % (0.0-0.2); Platelet Count Result 299 k/mm3 (150-375); Red Blood Count 3.93 M/mm3 (4.2-5.4); Red Cell Distribution Width 17.1 % (11.5-14.5); White Blood Count 11.6 K/mm3 (4.5-10.0)
[2023-01-03 05:51] LABS: Prothrombin Time 13.5 Seconds (11.1-14.7)
[2023-01-03 05:52] LABS: Partial Thromboplastin Time 31.9 SECONDS (22.3-36.8)
[2023-01-03 07:22] LABS: Anion Gap 9 mmol/L (8-16); Blood Urea Nitrogen 46 mg/dL (7-17); Calcium 8.9 mg/dL (8.4-10.2); Carbon Dioxide 19 mmol/L (22-30); Chloride 110 mmol/L (98-107); Estimated CRCL calculation 18 ml/min; Estimated Glomerular Filt Rate 18; Glucose 290 mg/dL (65-110); Sodium 138 mmol/L (137-145)
--- NOTE | 2023-01-03 07:30 | PC.NURSE ---
0715:UPON AM VITALS AND PREPARING FOR TRANSPORT TO SURGERY PT FOUND TO BE 78% SPO2 ON RA; SOMNOLENT. AROUSES TO NAME AND LIGHT TOUCH. O2 2LPM APPLIED. SATS 100% ON 2LPM. FAMILY AT BEDSIDE. PT ABLE TO ANSWER QUESTIONS THOUGH DROWSY. PT SPOUSE STATES PT HAS SUSPECTED CRISTIN BUT HAS FAILED TO F/U FOR EVAL/TX. STABLE AFTER APPLICATION OF OXYGEN. ANES MADE AWARE; DELAY TRNSFER TO OR. 0725: CRITICAL K 6.1 RECEIVED AND CALLED TO [facility] AND DR. ASHOK CRAIG. SURGERY POSTPONED PER ANES. OR TO NOTIFY GUIDO. DR. MARTINI AWARE OF K AND STATES WILL WORK ON CORRECTING K LEVEL.
--- NOTE | 2023-01-03 07:46 | PM.IMPN ---
Progress Note: A&P Assessment and Plan (1) Closed left hip fracture: Code(s): S72.002A - Fracture of unspecified part of neck of left femur, initial encounter for closed fracture Status: Ruled-out (2) Hypertriglyceridemia: Code(s): E78.1 - Pure hyperglyceridemia Status: Acute (3) Type 2 diabetes mellitus with chronic kidney disease, without long-term current use of insulin: Code(s): E11.22 - Type 2 diabetes mellitus with diabetic chronic kidney disease Status: Acute (4) PAD (peripheral artery disease): Code(s): I73.9 - Peripheral vascular disease, unspecified Status: Acute (5) BMI 37.0-37.9, adult: Code(s): Z68.37 - Body mass index [BMI] 37.0-37.9, adult Status: Acute (6) Menopausal state: Code(s): N95.1 - Menopausal and female climacteric states Status: Acute (7) Type 2 diabetes mellitus with hyperglycemia: Code(s): E11.65 - Type 2 diabetes mellitus with hyperglycemia Status: Chronic (8) Hypertension, essential: Code(s): I10 - Essential (primary) hypertension Status: Chronic (9) Hyperlipidemia, unspecified: Qualifiers: Hyperlipidemia type: unspecified Qualified Code(s): E78.5 - Hyperlipidemia, unspecified Code(s): E78.5 - Hyperlipidemia, unspecified Status: Chronic (10) Diabetic peripheral neuropathy: Code(s): E11.42 - Type 2 diabetes mellitus with diabetic polyneuropathy Status: Chronic (11) Coronary artery disease involving [place] heart without angina pectoris: Code(s): I25.10 - Atherosclerotic heart disease of [place] coronary artery without angina pectoris Status: Acute (12) Chronic kidney disease, stage 4 (severe): Code(s): N18.4 - Chronic kidney disease, stage 4 (severe) Status: Chronic (13) Anemia: Code(s): D64.9 - Anemia, unspecified Status: Chronic (14) CHF (congestive heart failure), NYHA class I: Code(s): I50.9 - Heart failure, unspecified Status: Chronic (15) Pulmonary HTN: Code(s): I27.20 - Pulmonary hypertension, unspecified Status: Acute (16) H/O heart artery stent: Code(s): Z95.5 - Presence of coronary angioplasty implant and graft Status: Acute (17) Secondary hyperparathyroidism, not elsewhere classified: Code(s): E21.1 - Secondary hyperparathyroidism, not elsewhere classified Status: Acute (18) Acute on chronic renal failure: Code(s): N17.9 - Acute kidney failure, unspecified; N18.9 - Chronic kidney disease, unspecified Status: Acute (19) Hyperkalemia: Code(s): E87.5 - Hyperkalemia Status: Acute Plan Patient fell down at home and had pain in her left hip hence EMS was called for evaluation XR:Comminuted, displaced left femoral intertrochanteric fracture with varus angulation. Admit patient to medical unit under full inpatient status Morphine 2 mg IV q.4 hours p.r.n. for pain Continue with home meds Orthopedic consult given for evaluation and treatment recommendations in a.m. Keep patient NPO after midnight except meds Hold off on aspirin/ NSAIDs/anti coagulation for possible surgery NATE on CKD IV, hyperkalemia BUN creatinine trending up, potassium 6.0 Patient concerned about her kidney and wants to get evaluated by signs and displays sales representative before considering orthopedic surgery for hip repair Nephrology consult given for evaluation and treatment recommendations Patient given 1 L of IV hydration in the ER avoid nephrotoxin medication Follow urinalysis, start dextrose 50 and insulin push, albuterol nebulizer, Lokelma p.o. start D5NS 75ML/h Hypertension urgency Blood pressure 185/83 Start amlodipine 10 mg daily p.o. Optimize pain management Start hydralazine 10 mg IV push Q 4 as needed with parameters Anxiety Xanax 0.25 mg p.o. t.i.d. p.r.n. given for anxiety History of CAD Monitor cardiac enzymes x3 given her history of CAD Patient denies meaghan
--- NOTE | 2023-01-03 08:07 | PM.PNORT ---
Progress Note: A&P Assessment and Plan (1) Intertrochanteric fracture of left hip: Qualifiers: Encounter type: initial encounter Fracture type: closed Fracture alignment: displaced Qualified Code(s): S72.142A - Displaced intertrochanteric fracture of left femur, initial encounter for closed fracture Code(s): S72.142A - Displaced intertrochanteric fracture of left femur, initial encounter for closed fracture Status: Acute (2) Acute on chronic renal failure: Code(s): N17.9 - Acute kidney failure, unspecified; N18.9 - Chronic kidney disease, unspecified Status: Acute Plan Patient with blood transfusion yesterday. Hypoxic episodes. Potassium elevated. Discussed with Anesthesia. Patient is not stable for surgery at this time. Subjective Subjective Date/Time Seen: 01/03/23 08:07 Objective Data Vital Signs Vital Signs: Vital Signs - 24 hr 01/02/23 09:10 01/02/23 10:41 01/02/23 11:00 Temperature 36.8 C Pulse Rate 93 Respiratory Rate 18 Blood Pressure 180/66 H Pulse Oximetry 94 92 Oxygen Delivery Room Air Room Air 01/02/23 15:05 01/02/23 21:14 01/03/23 01:05 Temperature 36.6 C 36.6 C 36.6 C Pulse Rate 97 78 60 Respiratory Rate 18 16 16 Blood Pressure 128/57 L 135/57 L 130/68 Pulse Oximetry 93 98 97 Oxygen Delivery 01/03/23 07:16 Temperature 36.6 C Pulse Rate 108 H Respiratory Rate 20 Blood Pressure 137/50 L Pulse Oximetry 100 Oxygen Delivery Intake/Output Intake/Output: Intake & Output 12/31/22 01/01/23 01/02/23 01/03/23 23:59 23:59 23:59 23:59 Intake Total 1000 920 200 Output Total 6550 425 Balance 9376 -8656 -603 Meds/Results Medications: Active Medications Generic Name Dose Route Start Last Admin Trade Name Freq PRN Reason Stop Dose Admin Acetaminophen 650 mg 01/01/23 20:44 01/02/23 17:50 Acetaminophen 325 Mg Tablet PO 650 mg Q4H PRN Administration Mild Pain (1-3) or Fever Hydrocodone Bitart/Acetaminophen 1 tab 01/02/23 08:58 Hydrocodone/Acetaminophen (*Crx) 7.5-325 Mg Tablet PO Q4H PRN Pain Rated 7-10 Al Hydrox/Mg Hydrox/Simethicone 30 ml 01/01/23 20:44 Mag Hydrox/Al Hydrox/Simeth 30 Ml Udc PO QID PRN Dyspepsia Alprazolam 0.25 mg 01/01/23 20:44 Alprazolam (*Crx) 0.25 Mg Tablet PO TID PRN Anxiety Amlodipine Besylate 10 mg 01/02/23 09:00 01/02/23 09:55 Amlodipine Besylate 5 Mg Tablet PO 10 mg QAM JACKY Administration Aspirin 81 mg 01/02/23 09:00 01/02/23 08:25 Aspirin 81 Mg Enteric Tablet PO 81 mg DAILY JACKY Administration Cyanocobalamin 1,000 mcg 01/02/23 09:00 01/02/23 08:27 Cyanocobalamin 1,000 Mcg Tablet PO Not Given QAM JACKY Dextrose 12.5 gm 01/01/23 20:44 Dextrose 50% 25 Gm/50 Ml Syringe IV PUSH PRN PRN Hypoglycemia Protocol Febuxostat 40 mg 01/02/23 09:00 01/02/23 08:27 Febuxostat 40 Mg Tablet PO Not Given DAILY JACKY Fish Oil 2 gm 01/02/23 09:00 01/02/23 16:45 Atalissa 3 Polyunsat Fatty Acids 1 Gm Cap PO 2 gm BID JACKY Administration Gabapentin 300 mg 01/01/23 21:00 01/02/23 21:07 Gabapentin 300 Mg Capsule PO 300 mg QID JACKY Administration Glucagon 1 mg 01/01/23 20:44 Glucagon For Inj 1 Mg Vial IM PRN PRN Hypoglycemia Protocol Glucose 15 gm 01/01/23 20:44 Glucose Oral Gel 15 Gm Of Glucse In 37.5 Gm Tube PO PRN PRN Hypoglycemia Protocol Hydralazine HCl 10 mg 01/02/23 08:51 01/02/23 12:34 Hydralazine Hcl 20 Mg/Ml Vial IV PUSH 10 mg Q4H PRN Administration Blood Pressure - High Dextrose 1,000 mls @ 100 mls/hr 01/01/23 20:44 Dextrose 5% 1,000 Ml IVPB PRN PRN Hypoglycemia Protocol Dextrose/Sodium Chloride 1,000 mls @ 75 mls/hr 01/03/23 07:55 Dextrose 5% Sodium Chloride 0.9% IV CONT .[id number] [facility] Insulin Aspart 2 - 5 units 01/02/23 08:00 01/02/23 16:45 Insulin Aspart (*[facility]) 100
[2023-01-03] MEDS: ALBUTEROL SULFATE NEB 2.5 MG/3 ML INH INHALATION (08:11)
[2023-01-03 08:24] LABS: Glucose Point of Care 271 mg/dl (65-105)
[2023-01-03] MEDS: DEXTROSE 5%/0.9% SOD CHL 1,000 ML 75 ML IV CONT (08:43)
[2023-01-03] MEDS: DEXTROSE 50% 25 GM/50 ML SYRINGE IV PUSH (08:47)
[2023-01-03] MEDS: INSULIN ASPART (*BKC) 100 UNITS/ML SUB-Q ×2 (08:54→12:09)
--- NOTE | 2023-01-03 10:13 | PM.PNNEP ---
Progress Note: A&P Assessment and Plan (1) Chronic kidney disease, stage 4 (severe): Code(s): N18.4 - Chronic kidney disease, stage 4 (severe) Status: Chronic Assessment and Plan: stable baseline creatinine runs ~ 2.3 - 2.7mg/dl in the last year or so secondary to diabetes, hypertension vascular disease and age-related change (2) Hyperkalemia: Code(s): E87.5 - Hyperkalemia Status: Acute Assessment and Plan: as noted by AM labs etiology not clear s/p medical management follow trend of repeat K+ levels (3) Intertrochanteric fracture of left hip: Qualifiers: Encounter type: initial encounter Fracture type: closed Fracture alignment: displaced Qualified Code(s): S72.142A - Displaced intertrochanteric fracture of left femur, initial encounter for closed fracture Code(s): S72.142A - Displaced intertrochanteric fracture of left femur, initial encounter for closed fracture Status: Acute Assessment and Plan: as noted by admission imaging Orthopedic recommendations reviewed will need operative intervention (4) Altered mental status: Code(s): R41.82 - Altered mental status, unspecified Status: Acute Assessment and Plan: noted earlier this AM possibly due to pain medications family reports episodes like this at home (but not as severe) back off on narcotics hold gabapentin follow mentation (5) Hypertension, essential: Code(s): I10 - Essential (primary) hypertension Status: Chronic Assessment and Plan: reasonable control at this time follow trend of hemodynamics (6) Anemia: Code(s): D64.9 - Anemia, unspecified Status: Chronic Assessment and Plan: partly due to CKD follow trend of H/H may need Epogen while hospitalized (7) Type 2 diabetes mellitus with hyperglycemia: Code(s): E11.65 - Type 2 diabetes mellitus with hyperglycemia Status: Chronic Assessment and Plan: follow accu-cheks glycemic control per hospitalists Long extensive discussion ( greater than 20 minutes) with the patient's family at bedside regarding her change in mental status in association with her hyperkalemia. They mention it me that she has had high potassium levels in the past and sometimes she has episodes even at home where she is somewhat sleep/lethargic like this morning although it seems a bit worse currently -- possible CRISTIN? Will continue to follow. Subjective Date/time seen: 01/03/23 10:13 Interval history: Follow-up for chronic kidney disease. Ag cancelled today due to findings of hyperkalemia on AM labs; also, she seems a bit more lethargic/somnolent at the time of my visit (due to pain medications?); no apparent distress but now on 2L oxygen by nasal cannula; family at bedside and we discussed the situation. Exam Narrative: General: elderly but WD/WN female - sleepy/lethargic at this time Heart: normal S1 and S2; no rub Lungs: clear to auscultation Abdomen: soft, nontender, nondistended, positive bowel sounds Extremities: no cyanosis or clubbing; no edema Skin: warm and dry Objective Data Vital Signs Vital Signs: Vital Signs Temp Pulse Resp BP Pulse Ox O2 Del Method O2 Flow Rate 01/03/23 10:00 97.8 F 101 H 15 154/69 H 100 01/03/23 08:30 100 Nasal Cannula 2 01/03/23 08:20 106 H 20 01/03/23 08:11 104 H 20 01/03/23 08:12 100 Nasal Cannula 2 01/03/23 07:16 97.8 F 108 H 20 137/50 L 100 01/03/23 01:05 97.8 F 60 16 130/68 97 01/02/23 21:14 97.8 F 78 16 135/57 L 98 01/02/23 15:05 97.8 F 97 18 128/57 L 93 Intake/Output Intake/Output: Intake & Output 12/31/22 01/01/23 01/02/23 01/03/23 23:59 23:59 23:59 23:59 Intake Total 1000 920 200 Output Total 6550 425 Balance 5787 -0037 -290 Meds/Results Medications: Active Medications Generic N
--- NOTE | 2023-01-03 10:13 | P.PNNP_ITS ---
Progress Note: A&P Assessment and Plan (1) Chronic kidney disease, stage 4 (severe): Code(s): N18.4 - Chronic kidney disease, stage 4 (severe) Status: Chronic Assessment and Plan: * stable * baseline creatinine runs ~ 2.3 - 2.7mg/dl in the last year or so * secondary to diabetes, hypertension vascular disease and age-related change (2) Hyperkalemia: Code(s): E87.5 - Hyperkalemia Status: Acute Assessment and Plan: * as noted by AM labs * etiology not clear * s/p medical management * follow trend of repeat K+ levels (3) Intertrochanteric fracture of left hip: Qualifiers: Encounter type: initial encounter Fracture type: closed Fracture alignment: displaced Qualified Code(s): S72.142A - Displaced intertrochanteric fracture of left femur, initial encounter for closed fracture Code(s): S72.142A - Displaced intertrochanteric fracture of left femur, initial encounter for closed fracture Status: Acute Assessment and Plan: * as noted by admission imaging * Orthopedic recommendations reviewed * will need operative intervention (4) Altered mental status: Code(s): R41.82 - Altered mental status, unspecified Status: Acute Assessment and Plan: * noted earlier this AM * possibly due to pain medications * family reports episodes like this at home (but not as severe) * back off on narcotics * hold gabapentin * follow mentation (5) Hypertension, essential: Code(s): I10 - Essential (primary) hypertension Status: Chronic Assessment and Plan: * reasonable control at this time * follow trend of hemodynamics (6) Anemia: Code(s): D64.9 - Anemia, unspecified Status: Chronic Assessment and Plan: * partly due to CKD * follow trend of H/H * may need Epogen while hospitalized (7) Type 2 diabetes mellitus with hyperglycemia: Code(s): E11.65 - Type 2 diabetes mellitus with hyperglycemia Status: Chronic Assessment and Plan: * follow accu-cheks * glycemic control per hospitalists Long extensive discussion ( greater than 20 minutes) with the patient's family at bedside regarding her change in mental status in association with her hyperkalemia. They mention it me that she has had high potassium levels in the past and sometimes she has episodes even at home where she is somewhat sleep/lethargic like this morning although it seems a bit worse currently -- possible CRISTIN? Will continue to follow. Subjective Date/time seen: 01/03/23 10:13 Interval history: Follow-up for chronic kidney disease. Ag cancelled today due to findings of hyperkalemia on AM labs; also, she seems a bit more lethargic/somnolent at the time of my visit (due to pain medications?); no apparent distress but now on 2L oxygen by nasal cannula; family at bedside and we discussed the situation. Exam Narrative: General: elderly but WD/WN female - sleepy/lethargic at this time Heart: normal S1 and S2; no rub Lungs: clear to auscultation Abdomen: soft, nontender, nondistended, positive bowel sounds Extremities: no cyanosis or clubbing; no edema Skin: warm and dry Objective Data Vital Signs Vital Signs: Vital Signs Temp Pulse Resp BP Pulse Ox O2 Del Method O2 Flow Rate 01/03/23 10:00 97.8 F 101 H 15 154/69 H 100 01/03/23 08:30 10
[2023-01-03] MEDS: CALCIUM GLUC 1,000 MG/NS 50 ML 1,000 MG/50 ML BAG 100 MG IVPB (10:26)
[2023-01-03] MEDS: SODIUM BICARBONATE 8.4% 75 MEQ in DEXTROSE 5%/0.45% SOD CHL 1,000 ML 60 MEQ IV CONT (11:10)
[2023-01-03] MEDS: SODIUM BICARBONATE 8.4% 50 MEQ/50 ML SYRINGE IV PUSH (11:11)
[2023-01-03 12:02] LABS: Glucose Point of Care 255 mg/dl (65-105)
[2023-01-03 12:32] LABS: Anion Gap 6 mmol/L (8-16); Blood Urea Nitrogen 48 mg/dL (7-17); Calcium 9.1 mg/dL (8.4-10.2); Carbon Dioxide 25 mmol/L (22-30); Chloride 109 mmol/L (98-107); Estimated CRCL calculation 17 ml/min; Estimated Glomerular Filt Rate 17; Glucose 287 mg/dL (65-110); Potassium 5.6 mmol/L (3.4-5.0); Sodium 140 mmol/L (137-145)
[2023-01-03 16:35] LABS: Glucose Point of Care 177 mg/dl (65-105)
[2023-01-03 19:56] LABS: Anion Gap 3 mmol/L (8-16); Blood Urea Nitrogen 47 mg/dL (7-17); Carbon Dioxide 30 mmol/L (22-30); Chloride 108 mmol/L (98-107); Creatine Kinase 44 U/L (30-135); Estimated CRCL calculation 17 ml/min; Estimated Glomerular Filt Rate 17; Glucose 178 mg/dL (65-110); Sodium 141 mmol/L (137-145)
[2023-01-03] MEDS: INSULIN GLARGINE (*BKC) 100 UNITS/ML 14 UNITS SUB-Q (20:12)
[2023-01-03 21:04] LABS: Glucose Point of Care 180 mg/dl (65-105)
[2023-01-04] VITALS (13 sets, daily range): BP systolic 160–195; BP diastolic 50–84; PULSE 99–106; RESP 14–20; TEMP 36.2–37; O2SAT 94–98
[2023-01-04] MEDS: DEXTROSE 5%/0.9% SOD CHL 1,000 ML 50 ML IV CONT (01:48)
[2023-01-04] MEDS: hydrALAZINE HCL 20 MG/ML VIAL 10 MG IV PUSH ×2 (02:30→09:14)
[2023-01-04 05:46] LABS: Basophils Percent Auto 0.2 % (0.2-1.2); Eosinophils Absolute Auto 0.2 K/mm3 (0-0.3); Eosinophils Percent Auto 1.7 % (0-4.4); Hematocrit 33.2 % (37.0-47.0); Hemoglobin 9.6 g/dL (12.0-15.0); Immature Granulocyte Absolute 0.12 K/mm3 (0.00-0.031); Immature Granulocyte Percent A 1.2 % (0-0.5); Lymphocytes Absolute Auto 1.15 K/mm3 (0.9-3.2); Lymphocytes Percent Auto 11.6 % (18.3-44.2); Mean Corpuscular HGB Conc 28.9 g/dl (32-36); Mean Corpuscular Volume 96.8 fl (80-100); Mean Platelet Volume 10.4 fl (7.4-10.4); Monocytes Absolute Auto 0.8 K/mm3 (0.1-0.6); Monocytes Percent Auto 7.8 % (2.6-8.5); Neutrophils Absolute Auto 7.7 K/mm3 (1.3-6.7); Neutrophils Percent Auto 77.5 % (45.5-73.1); Platelet Count Result 245 k/mm3 (150-375); Red Blood Count 3.43 M/mm3 (4.2-5.4); Red Cell Distribution Width 16.9 % (11.5-14.5); White Blood Count 9.9 K/mm3 (4.5-10.0)
[2023-01-04 05:53] LABS: Anion Gap 6 mmol/L (8-16); Blood Urea Nitrogen 45 mg/dL (7-17); Calcium 8.8 mg/dL (8.4-10.2); Carbon Dioxide 25 mmol/L (22-30); Chloride 109 mmol/L (98-107); Estimated CRCL calculation 19 ml/min; Estimated Glomerular Filt Rate 19; Glucose 245 mg/dL (65-110); Potassium 4.8 mmol/L (3.4-5.0); Sodium 140 mmol/L (137-145)
[2023-01-04 06:28] LABS: Anisocytosis 1+ (NORMAL); Hypochromasia 1+ (NORMAL); Platelet Estimate Adequate (Adequate); Schistocytes None Seen (NORMAL)
--- NOTE | 2023-01-04 07:59 | PM.IMPN ---
Progress Note: A&P Assessment and Plan (1) Closed left hip fracture: Code(s): S72.002A - Fracture of unspecified part of neck of left femur, initial encounter for closed fracture Status: Ruled-out (2) Hypertriglyceridemia: Code(s): E78.1 - Pure hyperglyceridemia Status: Acute (3) Type 2 diabetes mellitus with chronic kidney disease, without long-term current use of insulin: Code(s): E11.22 - Type 2 diabetes mellitus with diabetic chronic kidney disease Status: Acute (4) PAD (peripheral artery disease): Code(s): I73.9 - Peripheral vascular disease, unspecified Status: Acute (5) BMI 37.0-37.9, adult: Code(s): Z68.37 - Body mass index [BMI] 37.0-37.9, adult Status: Acute (6) Menopausal state: Code(s): N95.1 - Menopausal and female climacteric states Status: Acute (7) Type 2 diabetes mellitus with hyperglycemia: Code(s): E11.65 - Type 2 diabetes mellitus with hyperglycemia Status: Chronic (8) Hypertension, essential: Code(s): I10 - Essential (primary) hypertension Status: Chronic (9) Hyperlipidemia, unspecified: Qualifiers: Hyperlipidemia type: unspecified Qualified Code(s): E78.5 - Hyperlipidemia, unspecified Code(s): E78.5 - Hyperlipidemia, unspecified Status: Chronic (10) Diabetic peripheral neuropathy: Code(s): E11.42 - Type 2 diabetes mellitus with diabetic polyneuropathy Status: Chronic (11) Coronary artery disease involving [place] heart without angina pectoris: Code(s): I25.10 - Atherosclerotic heart disease of [place] coronary artery without angina pectoris Status: Acute (12) Chronic kidney disease, stage 4 (severe): Code(s): N18.4 - Chronic kidney disease, stage 4 (severe) Status: Chronic (13) Anemia: Code(s): D64.9 - Anemia, unspecified Status: Chronic (14) CHF (congestive heart failure), NYHA class I: Code(s): I50.9 - Heart failure, unspecified Status: Chronic (15) Pulmonary HTN: Code(s): I27.20 - Pulmonary hypertension, unspecified Status: Acute (16) H/O heart artery stent: Code(s): Z95.5 - Presence of coronary angioplasty implant and graft Status: Acute (17) Secondary hyperparathyroidism, not elsewhere classified: Code(s): E21.1 - Secondary hyperparathyroidism, not elsewhere classified Status: Acute (18) Acute on chronic renal failure: Code(s): N17.9 - Acute kidney failure, unspecified; N18.9 - Chronic kidney disease, unspecified Status: Acute (19) Hyperkalemia: Code(s): E87.5 - Hyperkalemia Status: Acute Plan Left hip fracture Patient fell down at home and had pain in her left hip hence EMS was called for evaluation XR:Comminuted, displaced left femoral intertrochanteric fracture with varus angulation. Admit patient to medical unit under full inpatient status Morphine 2 mg IV q.4 hours p.r.n. for pain Continue with home meds Orthopedic consult for evaluation and treatment recommendations Keep patient NPO after midnight except meds Hold off on aspirin/ NSAIDs/anti coagulation for possible surgery NATE on CKD IV, hyperkalemia BUN creatinine trending up, potassium 6.0 01/03 Patient concerned about her kidney and wants to get evaluated by rn complex care before considering orthopedic surgery for hip repair Nephrology consult given for evaluation and treatment recommendations Patient given 1 L of IV hydration in the ER avoid nephrotoxin medication Follow urinalysis, start dextrose 50 and insulin push, albuterol nebulizer, Lokelma p.o. started D5NS 75ML/h 01/04 Potassium 4.8, creatinine 2.5, BUN 45 diet are trending down. D5NS 50ML/h per rn complex care Acute encephalopathy Patient was confused yesterday Likely secondary to pain medication, electrolyte disorder and dehydration, and UTI Neuro check No focal weakness UTI UA shows pyuria, microscopic
[2023-01-04 08:04] LABS: Glucose Point of Care 249 mg/dl (65-105)
[2023-01-04] MEDS: CHOLECALCIFEROL 1,000 UNITS TABLET 5000 UNITS PO (08:40)
[2023-01-04] MEDS: INSULIN ASPART (*BKC) 100 UNITS/ML SUB-Q ×2 (08:40→12:04)
[2023-01-04] MEDS: FEBUXOSTAT 40 MG TABLET PO (08:41)
[2023-01-04] MEDS: MULTIVITAMINS THERAPEUTIC TAB (*BKC) 1 TABLET PO (08:41)
[2023-01-04] MEDS: CYANOCOBALAMIN 1,000 MCG TABLET 1000 MCG PO (08:41)
[2023-01-04] MEDS: ASPIRIN 81 MG ENTERIC TABLET PO (08:41)
[2023-01-04] MEDS: amLODIPine BESYLATE 5 MG TABLET 10 MG PO (08:53)
[2023-01-04] MEDS: ACETAMINOPHEN 325 MG TABLET 650 MG PO (09:14)
--- NOTE | 2023-01-04 10:35 | PM.PNNEP ---
Progress Note: A&P Assessment and Plan (1) Chronic kidney disease, stage 4 (severe): Code(s): N18.4 - Chronic kidney disease, stage 4 (severe) Status: Chronic Assessment and Plan: stable baseline creatinine runs ~ 2.3 - 2.7mg/dl in the last year or so secondary to diabetes, hypertension vascular disease and age-related change (2) Hyperkalemia: Code(s): E87.5 - Hyperkalemia Status: Acute Assessment and Plan: resolved etiology not clear s/p medical management follow trend of repeat K+ levels (3) Altered mental status: Code(s): R41.82 - Altered mental status, unspecified Status: Acute Assessment and Plan: worse this AM in association with paranoia back off on narcotics and holding gabapentin check UA to r/o UTI follow mentation (4) Intertrochanteric fracture of left hip: Qualifiers: Encounter type: initial encounter Fracture alignment: displaced Fracture type: closed Qualified Code(s): S72.142A - Displaced intertrochanteric fracture of left femur, initial encounter for closed fracture Code(s): S72.142A - Displaced intertrochanteric fracture of left femur, initial encounter for closed fracture Status: Acute Assessment and Plan: as noted by admission imaging Orthopedic recommendations reviewed will need operative intervention (5) Hypertension, essential: Code(s): I10 - Essential (primary) hypertension Status: Chronic Assessment and Plan: high this AM -- due to not take BP medications this AM? may need to use PRN IV medications follow trend of hemodynamics (6) Anemia: Code(s): D64.9 - Anemia, unspecified Status: Chronic Assessment and Plan: partly due to CKD follow trend of H/H may need Epogen while hospitalized (7) Type 2 diabetes mellitus with hyperglycemia: Code(s): E11.65 - Type 2 diabetes mellitus with hyperglycemia Status: Chronic Assessment and Plan: follow accu-cheks glycemic control per hospitalists Will continue to follow. Subjective Date/time seen: 01/04/23 10:35 Interval history: Follow-up for chronic kidney disease. More confused this AM at the time of my visit -- she was insistent that someone was going to kill her despite my insistence that was not true; potassium and renal function appear stable if not better; no other acute issues overnight or earlier this morning; family at bedside and we discussed the case. Exam Narrative: General: elderly but WD/WN female - confused and paranoid Heart: normal S1 and S2; no rub Lungs: clear to auscultation Abdomen: soft, nontender, nondistended, positive bowel sounds Extremities: no cyanosis or clubbing; no edema Skin: warm and intact Objective Data Vital Signs Vital Signs: Vital Signs Temp Pulse Resp BP Pulse Ox 01/04/23 08:52 102 H 14 195/72 H 98 01/04/23 05:57 98.3 F 103 H 14 160/84 H 96 01/04/23 04:00 103 H 01/04/23 00:00 99 01/04/23 02:00 97.1 F L 100 14 176/50 H 98 01/03/23 21:21 97.6 F 97 14 146/51 H 100 01/03/23 18:00 97.8 F 95 16 156/71 H 99 01/03/23 16:00 99 01/03/23 14:00 97.6 F 97 15 161/84 H 100 Intake/Output Intake/Output: Intake & Output 01/01/23 01/02/23 01/03/23 01/04/23 23:59 23:59 23:59 23:59 Intake Total 1000 920 200 0 Output Total 6550 825 1050 Balance 5972 -0321 -261 -1050 Meds/Results Medications: Active Medications Generic Name Dose Route Start Last Admin Trade Name Freq PRN Reason Stop Dose Admin Acetaminophen 650 mg 01/01/23 20:44 01/04/23 09:14 Acetaminophen 325 Mg Tablet PO 650 mg Q4H PRN Administration Mild Pain (1-3) or Fever Hydrocodone Bitart/Acetaminophen 1 tab 01/02/23 08:58 Hydrocodone/Acetaminophen (*Crx) 7.5-325 Mg Tablet PO Q4H PRN Pain Rated 7-10 Al Hydrox/Mg Hydrox/Simethicone 30 ml 01/01/23
--- NOTE | 2023-01-04 10:35 | P.PNNP_ITS ---
Progress Note: A&P Assessment and Plan (1) Chronic kidney disease, stage 4 (severe): Code(s): N18.4 - Chronic kidney disease, stage 4 (severe) Status: Chronic Assessment and Plan: * stable * baseline creatinine runs ~ 2.3 - 2.7mg/dl in the last year or so * secondary to diabetes, hypertension vascular disease and age-related change (2) Hyperkalemia: Code(s): E87.5 - Hyperkalemia Status: Acute Assessment and Plan: * resolved * etiology not clear * s/p medical management * follow trend of repeat K+ levels (3) Altered mental status: Code(s): R41.82 - Altered mental status, unspecified Status: Acute Assessment and Plan: * worse this AM in association with paranoia * back off on narcotics and holding gabapentin * check UA to r/o UTI * follow mentation (4) Intertrochanteric fracture of left hip: Qualifiers: Encounter type: initial encounter Fracture alignment: displaced Fracture type: closed Qualified Code(s): S72.142A - Displaced intertrochanteric fracture of left femur, initial encounter for closed fracture Code(s): S72.142A - Displaced intertrochanteric fracture of left femur, initial encounter for closed fracture Status: Acute Assessment and Plan: * as noted by admission imaging * Orthopedic recommendations reviewed * will need operative intervention (5) Hypertension, essential: Code(s): I10 - Essential (primary) hypertension Status: Chronic Assessment and Plan: * high this AM -- due to not take BP medications this AM? * may need to use PRN IV medications * follow trend of hemodynamics (6) Anemia: Code(s): D64.9 - Anemia, unspecified Status: Chronic Assessment and Plan: * partly due to CKD * follow trend of H/H * may need Epogen while hospitalized (7) Type 2 diabetes mellitus with hyperglycemia: Code(s): E11.65 - Type 2 diabetes mellitus with hyperglycemia Status: Chronic Assessment and Plan: * follow accu-cheks * glycemic control per hospitalists Will continue to follow. Subjective Date/time seen: 01/04/23 10:35 Interval history: Follow-up for chronic kidney disease. More confused this AM at the time of my visit -- she was insistent that someone was going to kill her despite my insistence that was not true; potassium and renal function appear stable if not better; no other acute issues overnight or earlier this morning; family at bedside and we discussed the case. Exam Narrative: General: elderly but WD/WN female - confused and paranoid Heart: normal S1 and S2; no rub Lungs: clear to auscultation Abdomen: soft, nontender, nondistended, positive bowel sounds Extremities: no cyanosis or clubbing; no edema Skin: warm and intact Objective Data Vital Signs Vital Signs: Vital Signs Temp Pulse Resp BP Pulse Ox 01/04/23 08:52 102 H 14 195/72 H 98 01/04/23 05:57 98.3 F 103 H 14 160/84 H 96 01/04/23 04:00 103 H 01/04/23 00:00 99 01/04/23 02:00 97.1 F L 100 14 176/50 H 98 01/03/23 21:21 97.6 F 97 14 146/51 H 100 01/03/23 18:00 97.8 F 95 16 156/71 H 99 01/03/23 16:00 99 01/03/23 14:00 97.6 F 97 15 161/84 H 100 Intake/Output Intake/Output:
[2023-01-04 10:53] LABS: Glucose Point of Care 278 mg/dl (65-105)
[2023-01-04 11:39] LABS: Glucose Point of Care 265 mg/dl (65-105)
[2023-01-04 13:40] LABS: Appearance Urine Turbid (Clear); Bacteria Urine 4+ /hpf; Bilirubin Urine Negative (Negative); Blood Urine 2+ (Negative); Color Urine Yellow (Yellow); Glucose Urine UA Trace mg/dL (Negative); Ketones Urine Negative (Negative); Leukocyte Esterase Ur 3+ LEU/UL (Negative); Need Manual Microscopic Need Manual; Nitrate Urine Positive (Negative); Protein Urine 2+ mg/dL (Negative); Specific Grav Ur 1.013 (1.001-1.035); Urobilinogen Urine 0.2 mg/dL (<2.0); WBC Urine >100 /hpf
[2023-01-04 13:43] LABS: Squamous Epithelial Cell Urine Occasional /hpf (Few)
[2023-01-04 13:44] LABS: Add Urine Microscopic? YES; Non Pathogenic Casts Not Present
--- NOTE | 2023-01-04 14:13 | PM.PNORT ---
Progress Note: A&P Assessment and Plan (1) Intertrochanteric fracture of left hip: Qualifiers: Encounter type: initial encounter Fracture type: closed Fracture alignment: displaced Qualified Code(s): S72.142A - Displaced intertrochanteric fracture of left femur, initial encounter for closed fracture Code(s): S72.142A - Displaced intertrochanteric fracture of left femur, initial encounter for closed fracture Status: Acute Plan Displaced intertrochanteric fracture left hip. Severe kidney disease. Surgery was canceled Wednesday due to elevated potassium. This has normalized today. Plan for surgery tomorrow afternoon pending she is stable for surgery. NPO at midnight. Discussed plan with family who is agreeable. She is high risk due to medical comorbidities. Anticipate 6 weeks rehab. Discussed Tylenol for pain after surgery. Proceed with ORIF left hip with cephalomedullary nail (gamma nail) when medically cleared. Subjective Subjective Date/Time Seen: 01/04/23 14:13 Interval history: Patient resting comfortably in bed. Spoke with nurse and family at beside. Patient complains of pain at her hip. Family states she has been having more confusion recently. Nurse states she was diagnosed with UTI and is starting antibiotics. Review of Systems Review of Systems: ROS unobtainable: Yes unobtainable due to medical condition Exam Narrative: Patient is alert and oriented. Resting comfortably in bed. No acute distress. No erythema or ecchymosis. No rashes or lesions noted. Warm, normal appearing skin. Tenderness at left hip. Left lower leg shortened and externally rotated. Calf nontender. Distal pulses palpable. Normal capillary refill. Patient able to move and wiggle toes. Light touch sensation intact. Objective Data Vital Signs Vital Signs: Vital Signs - 24 hr 01/03/23 16:00 01/03/23 18:00 01/03/23 21:21 Temperature 97.8 F 97.6 F Pulse Rate 99 95 97 Respiratory Rate 16 14 Blood Pressure 156/71 H 146/51 H Pulse Oximetry 99 100 01/04/23 02:00 01/04/23 00:00 01/04/23 04:00 Temperature 97.1 F L Pulse Rate 100 99 103 H Respiratory Rate 14 Blood Pressure 176/50 H Pulse Oximetry 98 01/04/23 05:57 01/04/23 08:52 01/04/23 13:27 Temperature 98.3 F 98.1 F Pulse Rate 103 H 102 H 100 Respiratory Rate 14 14 18 Blood Pressure 160/84 H 195/72 H 167/67 H Pulse Oximetry 96 98 98 Intake/Output Intake/Output: Intake & Output 01/01/23 01/02/23 01/03/23 01/04/23 23:59 23:59 23:59 23:59 Intake Total 1000 920 200 120 Output Total 6552 825 1050 Balance 8315 -9868 -591 -930 Meds/Results Medications: Active Medications Generic Name Dose Route Start Last Admin Trade Name Freq PRN Reason Stop Dose Admin Acetaminophen 650 mg 01/01/23 20:44 01/04/23 09:14 Acetaminophen 325 Mg Tablet PO 650 mg Q4H PRN Administration Mild Pain (1-3) or Fever Hydrocodone Bitart/Acetaminophen 1 tab 01/02/23 08:58 Hydrocodone/Acetaminophen (*Crx) 7.5-325 Mg Tablet PO Q4H PRN Pain Rated 7-10 Al Hydrox/Mg Hydrox/Simethicone 30 ml 01/01/23 20:44 Mag Hydrox/Al Hydrox/Simeth 30 Ml Udc PO QID PRN Dyspepsia Alprazolam 0.25 mg 01/01/23 20:44 Alprazolam (*Crx) 0.25 Mg Tablet PO TID PRN Anxiety Amlodipine Besylate 10 mg 01/02/23 09:00 01/04/23 08:53 Amlodipine Besylate 5 Mg Tablet PO 10 mg QAM JACKY Administration Aspirin 81 mg 01/02/23 09:00 01/04/23 08:41 Aspirin 81 Mg Enteric Tablet PO 81 mg DAILY JACKY Administration Cyanocobalamin 1,000 mcg 01/02/23 09:00 01/04/23 08:41 Cyanocobalamin 1,000 Mcg Tablet PO 1,000 mcg QAM JACKY Administration Dextrose 12.5 gm 01/03/23 15:33 Dextrose 50% 25 Gm/50 Ml Syringe IV PUSH PRN PRN Hypoglycemia Protocol Febuxostat 40 mg 01/02/23 09:00 01/04/23 08:41 Febuxostat 40 Mg Tablet PO 40 mg DAILY JACKY Administration Fish Oil 2 gm 09
[2023-01-04 16:49] LABS: Glucose Point of Care 200 mg/dl (65-105)
[2023-01-04] MEDS: OMEGA 3 POLYUNSAT FATTY ACIDS 1 GM CAP 2 GM PO (17:13)
[2023-01-04] MEDS: SODIUM ZIRCONIUM CYCLOSILICATE 10 GM POWD.PACK PO (17:13)
[2023-01-04] MEDS: INSULIN GLARGINE (*BKC) 100 UNITS/ML 14 UNITS SUB-Q (22:20)
[2023-01-04 22:37] LABS: Glucose Point of Care 189 mg/dl (65-105)
[2023-01-05] VITALS (21 sets, daily range): BP systolic 127–204; BP diastolic 59–129; PULSE 93–112; RESP 14–22; TEMP 35.9–37.3; O2SAT 92–99
[2023-01-05] MEDS: hydrALAZINE HCL 20 MG/ML VIAL 10 MG IV PUSH ×3 (04:24→15:46)
[2023-01-05 06:39] LABS: Glucose Point of Care 259 mg/dl (65-105)
[2023-01-05 07:44] LABS: Albumin Level 3.8 g/dL (3.5-5.1); Anion Gap 8 mmol/L (8-16); Blood Urea Nitrogen 43 mg/dL (7-17); Calcium 9.5 mg/dL (8.4-10.2); Carbon Dioxide 27 mmol/L (22-30); Chloride 107 mmol/L (98-107); Estimated CRCL calculation 21 ml/min; Estimated Glomerular Filt Rate 22; Glucose 252 mg/dL (65-110); Phosphorus 3.6 mg/dL (2.5-4.5); Potassium 4.7 mmol/L (3.4-5.0); Sodium 142 mmol/L (137-145)
--- NOTE | 2023-01-05 08:17 | P.CDI_ITS ---
CDI Query Clarification Request Documented history of CHF. CHF noted on the assessment and plan. Interstitial edema noted on the 01/03/23 chest xray. Please specify type and acuity of heart failure if known. * Acute * Chronic * Acute on Chronic * Unknown * Systolic * Diastolic * Combined Systolic and Diastolic * Unknown <Ashwini Alegria RN - Last Filed: 01/05/23 08:24> Clarified Diagnosis Clarified Diagnosis: acute on chronic systolic <Niru Prater MD - Last Filed: 01/05/23 09:10>
--- NOTE | 2023-01-05 08:17 | WPDCDIQUERY2 ---
CDI Query Clarification Request Documented history of CHF. CHF noted on the assessment and plan. Interstitial edema noted on the 01/03/23 chest xray. Please specify type and acuity of heart failure if known. Acute Chronic Acute on Chronic Unknown Systolic Diastolic Combined Systolic and Diastolic Unknown <Ashwini Alegria RN - Last Filed: 01/05/23 08:24> Clarified Diagnosis Clarified Diagnosis: acute on chronic systolic <Niru Prater MD - Last Filed: 01/05/23 09:10>
[2023-01-05 08:21] LABS: Glucose Point of Care 254 mg/dl (65-105)
[2023-01-05] MEDS: INSULIN ASPART (*BKC) 100 UNITS/ML SUB-Q ×3 (10:09→18:03)
--- NOTE | 2023-01-05 10:11 | PM.PNNEP ---
Progress Note: A&P Assessment and Plan (1) Chronic kidney disease, stage 4 (severe): Code(s): N18.4 - Chronic kidney disease, stage 4 (severe) Status: Chronic Assessment and Plan: stable baseline creatinine runs ~ 2.3 - 2.7mg/dl in the last year or so secondary to diabetes, hypertension vascular disease and age-related change (2) Hyperkalemia: Code(s): E87.5 - Hyperkalemia Status: Acute Assessment and Plan: resolved etiology not clear s/p medical management follow trend of repeat K+ levels (3) Altered mental status: Code(s): R41.82 - Altered mental status, unspecified Status: Acute Assessment and Plan: slightly beter but still present backing off on narcotics and holding gabapentin possibly secondary to suspected UTI (?) follow mentation (4) Intertrochanteric fracture of left hip: Qualifiers: Encounter type: initial encounter Fracture alignment: displaced Fracture type: closed Qualified Code(s): S72.142A - Displaced intertrochanteric fracture of left femur, initial encounter for closed fracture Code(s): S72.142A - Displaced intertrochanteric fracture of left femur, initial encounter for closed fracture Status: Acute Assessment and Plan: as noted by admission imaging Orthopedic recommendations reviewed operative intervention tentatively scheduled today (5) Hypertension, essential: Code(s): I10 - Essential (primary) hypertension Status: Chronic Assessment and Plan: little high but pain maybe playing a role may need to use PRN IV medications follow trend of hemodynamics (6) Anemia: Code(s): D64.9 - Anemia, unspecified Status: Chronic Assessment and Plan: partly due to CKD follow trend of H/H may need Epogen while hospitalized (7) Type 2 diabetes mellitus with hyperglycemia: Code(s): E11.65 - Type 2 diabetes mellitus with hyperglycemia Status: Chronic Assessment and Plan: follow accu-cheks glycemic control per hospitalists Will continue to follow. Subjective Date/time seen: 01/05/23 10:11 Interval history: Follow-up for chronic kidney disease. Mentation still not back to baseline but paranoia seems to be better; urinalysis noted yesterday and started on antibiotics for suspected UTI; renal function and K+ remains stable; discussed with juan antonio at bedside; noted plans for surgery today. Exam Narrative: General: elderly but WD/WN female - still confused Heart: normal S1 and S2; no rub Lungs: clear to auscultation Abdomen: soft, nontender, nondistended, positive bowel sounds Extremities: no cyanosis or clubbing; no edema Skin: no nodules Objective Data Vital Signs Vital Signs: Vital Signs Temp Pulse Resp BP Pulse Ox O2 Del Method 01/05/23 10:04 97.9 F 108 H 18 93 01/05/23 06:00 98.8 F 105 H 18 156/72 H 95 01/05/23 04:00 100 01/05/23 00:00 98 01/04/23 20:00 99 01/05/23 02:00 98.6 F 101 H 18 178/72 H 95 01/04/23 21:45 Room Air 01/04/23 19:32 98.5 F 102 H 18 179/70 H 98 01/04/23 18:12 98.6 F 106 H 20 179/59 H 94 01/04/23 16:00 100 01/04/23 13:27 98.1 F 100 18 167/67 H 98 Intake/Output Intake/Output: Intake & Output 01/02/23 01/03/23 01/04/23 01/05/23 23:59 23:59 23:59 23:59 Intake Total 920 200 170 Output Total 6550 825 1650 1075 [facility] -5630 -625 -1480 -1075 Meds/Results Medications: Active Medications Generic Name Dose Route Start Last Admin Trade Name Freq PRN Reason Stop Dose Admin Acetaminophen 650 mg 01/01/23 20:44 01/04/23 09:14 Acetaminophen 325 Mg Tablet PO 650 mg Q4H PRN Administration Mild Pain (1-3) or Fever Hydrocodone Bitart/Acetaminophen 1 tab 01/02/23 08:58 Hydrocodone/Acetaminophen (*Crx) 7.5-325 Mg Tablet PO Q4H PRN Pain Rated 7-10 Al Hydrox/Mg Hydrox
--- NOTE | 2023-01-05 10:11 | P.PNNP_ITS ---
Progress Note: A&P Assessment and Plan (1) Chronic kidney disease, stage 4 (severe): Code(s): N18.4 - Chronic kidney disease, stage 4 (severe) Status: Chronic Assessment and Plan: * stable * baseline creatinine runs ~ 2.3 - 2.7mg/dl in the last year or so * secondary to diabetes, hypertension vascular disease and age-related change (2) Hyperkalemia: Code(s): E87.5 - Hyperkalemia Status: Acute Assessment and Plan: * resolved * etiology not clear * s/p medical management * follow trend of repeat K+ levels (3) Altered mental status: Code(s): R41.82 - Altered mental status, unspecified Status: Acute Assessment and Plan: * slightly beter but still present * backing off on narcotics and holding gabapentin * possibly secondary to suspected UTI (?) * follow mentation (4) Intertrochanteric fracture of left hip: Qualifiers: Encounter type: initial encounter Fracture alignment: displaced Fracture type: closed Qualified Code(s): S72.142A - Displaced intertrochanteric fracture of left femur, initial encounter for closed fracture Code(s): S72.142A - Displaced intertrochanteric fracture of left femur, initial encounter for closed fracture Status: Acute Assessment and Plan: * as noted by admission imaging * Orthopedic recommendations reviewed * operative intervention tentatively scheduled today (5) Hypertension, essential: Code(s): I10 - Essential (primary) hypertension Status: Chronic Assessment and Plan: * little high but pain maybe playing a role * may need to use PRN IV medications * follow trend of hemodynamics (6) Anemia: Code(s): D64.9 - Anemia, unspecified Status: Chronic Assessment and Plan: * partly due to CKD * follow trend of H/H * may need Epogen while hospitalized (7) Type 2 diabetes mellitus with hyperglycemia: Code(s): E11.65 - Type 2 diabetes mellitus with hyperglycemia Status: Chronic Assessment and Plan: * follow accu-cheks * glycemic control per hospitalists Will continue to follow. Subjective Date/time seen: 01/05/23 10:11 Interval history: Follow-up for chronic kidney disease. Mentation still not back to baseline but paranoia seems to be better; urinalysis noted yesterday and started on antibiotics for suspected UTI; renal function and K+ remains stable; discussed with fmily at bedside; noted plans for surgery today. Exam 2 Narrative: General: elderly but WD/WN female - still confused Heart: normal S1 and S2; no rub Lungs: clear to auscultation Abdomen: soft, nontender, nondistended, positive bowel sounds Extremities: no cyanosis or clubbing; no edema Skin: no nodules Objective Data Vital Signs Vital Signs: Vital Signs Temp Pulse Resp BP Pulse Ox O2 Del Method 01/05/23 10:04 97.9 F 108 H 18 93 01/05/23 06:00 98.8 F 105 H 18 156/72 H 95 01/05/23 04:00 100 01/05/23 00:00 98 01/04/23 20:00 99 01/05/23 02:00 98.6 F 101 H 18 178/72 H 95 01/04/23 21:45 Room Air 01/04/23 19:32 98.5 F 102 H 18 179/70 H 98 01/04/23 18:12 98.6 F 106 H 20 179/59 H 94 01/04/23 16:00 100 01/04/23 13:27 98.1 F 100 18 167/67 H 98 In
[2023-01-05 12:15] LABS: Glucose Point of Care 245 mg/dl (65-105)
--- NOTE | 2023-01-05 13:17 | WPDANESEPPF ---
Anes - Initial Pre Proc Eval Procedure: Operation Date: 01/03/23 07:30 Proposed Procedures p Intertrochanteric Nail Gamma Nail(Left) - Cesar Wells MD Operation Date: 01/05/23 15:00 Proposed Procedures p Left Gamma Nail(Left) - Cesar Wells MD Date/Time: 01/05/23 13:17 Surgeon: Anthony Gordon MD Pre Op Diagnosis: left hip fracture Patient Data Age: 77 Gender: F Height: 1.63 m Weight: 96.6 kg Last Vital Signs Temp 36.9 C 01/05/23 12:04 Pulse 107 H 01/05/23 12:04 Resp 18 01/05/23 12:04 BP 195/87 H 01/05/23 12:04 Pulse Ox 93 01/05/23 12:04 O2 Del Method Room Air 01/04/23 21:45 O2 Flow Rate 2 01/04/23 08:40 Allergies Allergy/AdvReac Type Severity Reaction Status Date / Time codeine Allergy Intermediate Rash Verified 12/03/22 15:17 Penicillins Allergy Intermediate Rash Verified 12/03/22 15:17 Sulfa (Sulfonamide Allergy Intermediate cheeks get Verified 12/03/22 15:17 Antibiotics) really red Home Medications Medication Instructions Recorded Confirmed Type aspirin 81 mg tablet,delayed 81 mg PO DAILY 09/27/19 01/01/23 History release (Adult Aspirin Regimen) cholecalciferol (vitamin D3) 50 125 mcg PO DAILY 05/29/20 01/01/23 History mcg (2,000 unit) tablet multivitamin (Multiple Vitamins 1 tablet PO DAILY 05/29/20 01/01/23 History tablet) nystatin 100,000 unit/gram topical 1 applic topical BID PRN Rash 10/27/21 01/01/23 History powder cyanocobalamin (vitamin B-12) 1,000 mcg PO QAM #30 tabs 05/21/22 01/01/23 Rx 1,000 mcg tablet (Vitamin B-12) methocarbamol 750 mg tablet 750 mg PO Q6H PRN muscle spasms 08/11/22 01/01/23 Rx #45 tabs ondansetron 4 mg disintegrating 4 mg PO Q8H PRN nausea and 10/27/22 01/01/23 Rx tablet vomiting #7 tabs flash glucose scanning reader #1 ea 11/05/22 01/01/23 Rx (FreeStyle Ronal 2 [place]) flash glucose sensor (FreeStyle #6 ea 11/05/22 01/01/23 Rx Ronal 2 Sensor kit) febuxostat 40 mg tablet 40 mg PO DAILY #30 tabs 11/10/22 01/01/23 Rx gabapentin 300 mg capsule 300 mg PO QID #120 caps 11/10/22 01/01/23 Rx glipizide 2.5 mg tablet, extended 2.5 mg PO DAILY #30 tabs 12/03/22 01/01/23 Rx release 24 hr glucagon 3 mg/actuation nasal 3 mg intranasal ONCE PRN 12/03/22 01/01/23 Rx spray (Baqsimi) hypoglycemia #1 ea glucose 4 gram chewable tablet 16 g PO Q15M PRN hypoglycemia #60 12/03/22 01/01/23 Rx (Dex4 Glucose) tabs omega-3 acid ethyl esters 1 gram 2 cap PO BID 90 days #360 caps 12/09/22 01/01/23 Rx capsule (Lovaza) simvastatin 40 mg tablet 40 mg PO HS 01/01/23 01/01/23 History Laboratory Tests 01/04/23 01/04/23 01/04/23 13:16 13:16 13:16 Sodium Potassium Chloride Carbon Dioxide Anion Gap BUN Creatinine Estim Creat Clear Calc Estimated GFR Glucose POC Capillary Glucose Calcium Phosphorus Albumin Urine Color Cancelled Yellow (Yellow) Urine Appearance Cancelled Turbid H (Clear) Urine pH Cancelled Ur Specific [place] Urine Protein Urine Glucose (UA) Urine Ketones Ur Blood (Man) Urine Nitrate Urine Bilirubin Urine Urobilinogen Ur Leukocyte Esterase Add Ur Microanalysis Leukocyte Esterase Rfl Urine RBC Urine WBC Urine WBC Clumps Ur Squamous Epith Cells Ur Transition Epith Cell Ur Renal Epithelial Cell [place] Biurate Crystals Calcium Carbonate Cryst Calcium Phosphate Cryst Calcium Oxalate Crystal Leucine Crystals Cystine Crystals Uric Acid Crystals Triple Phos Crystals Sulfonamide Crystals
--- NOTE | 2023-01-05 13:33 | WPDHPUPDATE1 ---
History and Physical Update Update Date/Time: 01/05/23 13:33 UTI started on antibiotics yesterday. Some confusion. Discussed case with hospitalist. Ok to proceed with surgery today. Significant risks discussed with patient and family. History and Physical has been reviewed, including an updated exam of the patient. Risks, benefits, and alternatives have been discussed and questions answered. Patient agrees to proceed with procedure.
--- NOTE | 2023-01-05 13:42 | PM.IMPN ---
Progress Note: A&P Assessment and Plan (1) Closed left hip fracture: Code(s): S72.002A - Fracture of unspecified part of neck of left femur, initial encounter for closed fracture Status: Ruled-out (2) Hypertriglyceridemia: Code(s): E78.1 - Pure hyperglyceridemia Status: Acute (3) Type 2 diabetes mellitus with chronic kidney disease, without long-term current use of insulin: Code(s): E11.22 - Type 2 diabetes mellitus with diabetic chronic kidney disease Status: Acute (4) PAD (peripheral artery disease): Code(s): I73.9 - Peripheral vascular disease, unspecified Status: Acute (5) BMI 37.0-37.9, adult: Code(s): Z68.37 - Body mass index [BMI] 37.0-37.9, adult Status: Acute (6) Menopausal state: Code(s): N95.1 - Menopausal and female climacteric states Status: Acute (7) Type 2 diabetes mellitus with hyperglycemia: Code(s): E11.65 - Type 2 diabetes mellitus with hyperglycemia Status: Chronic (8) Hypertension, essential: Code(s): I10 - Essential (primary) hypertension Status: Chronic (9) Hyperlipidemia, unspecified: Qualifiers: Hyperlipidemia type: unspecified Qualified Code(s): E78.5 - Hyperlipidemia, unspecified Code(s): E78.5 - Hyperlipidemia, unspecified Status: Chronic (10) Diabetic peripheral neuropathy: Code(s): E11.42 - Type 2 diabetes mellitus with diabetic polyneuropathy Status: Chronic (11) Coronary artery disease involving [place] heart without angina pectoris: Code(s): I25.10 - Atherosclerotic heart disease of [place] coronary artery without angina pectoris Status: Acute (12) Chronic kidney disease, stage 4 (severe): Code(s): N18.4 - Chronic kidney disease, stage 4 (severe) Status: Chronic (13) Anemia: Code(s): D64.9 - Anemia, unspecified Status: Chronic (14) CHF (congestive heart failure), NYHA class I: Code(s): I50.9 - Heart failure, unspecified Status: Chronic (15) Pulmonary HTN: Code(s): I27.20 - Pulmonary hypertension, unspecified Status: Acute (16) H/O heart artery stent: Code(s): Z95.5 - Presence of coronary angioplasty implant and graft Status: Acute (17) Secondary hyperparathyroidism, not elsewhere classified: Code(s): E21.1 - Secondary hyperparathyroidism, not elsewhere classified Status: Acute (18) Acute on chronic renal failure: Code(s): N17.9 - Acute kidney failure, unspecified; N18.9 - Chronic kidney disease, unspecified Status: Acute (19) Hyperkalemia: Code(s): E87.5 - Hyperkalemia Status: Acute Plan Left hip fracture Patient fell down at home and had pain in her left hip hence EMS was called for evaluation XR:Comminuted, displaced left femoral intertrochanteric fracture with varus angulation. Admit patient to medical unit under full inpatient status Morphine 2 mg IV q.4 hours p.r.n. for pain Continue with home meds Orthopedic consult for evaluation and treatment recommendations Keep patient NPO after midnight except meds Hold off on aspirin/ NSAIDs/anti coagulation for possible surgery - pt going for surgery today NATE on CKD IV, hyperkalemia BUN creatinine trending up, potassium 6.0 01/03 Patient concerned about her kidney and wants to get evaluated by [employer] operator before considering orthopedic surgery for hip repair Nephrology consult given for evaluation and treatment recommendations Patient given 1 L of IV hydration in the ER avoid nephrotoxin medication Follow urinalysis creat is 2.2 continue fluids potassium is nl Acute encephalopathy Patient was confused yesterday Likely secondary to pain medication, electrolyte disorder and dehydration, and UTI UTI UA shows pyuria, microscopic hematuria, urine is cloudy Start ceftriaxone IV Follow-up urine culture Hypertension urgency Blood pressure 185/83 Start amlodipine 1
[2023-01-05] MEDS: TRANEXAMIC ACID 1,000MG/ISO100 1,000 MG/100 ML BAG 200 MG IVPB ×2 (13:45→13:49)
[2023-01-05] MEDS: SODIUM CHLORIDE 0.9% IV 500 ML 30 ML IV CONT (15:22)
--- NOTE | 2023-01-05 15:22 | P.OP_ITS ---
Procedure Note - Detailed Date of Procedure 01/05/23 Pre-op Diagnosis left hip displaced intertrochanteric fracture Post-op Diagnosis Same Procedure Performed ORIF with long cephalomedullary nail. Surgeon Cesar Wells MD Sr Technical Sales Consultant Leslee Lawson PA-C Anesthesia General Findings C-arm images suggested possible further subtrochanteric extension. The long nail was thus selected, and locked distally. Description of Procedure The patient was given a general anesthetic, then carefully placed in fracture table. Sterile prep and drape performed in the usual fashion. Sterile curtain was used. Gentle traction was utilized to reduce the fracture. Fluoroscopy was used to confirm anatomic reduction and a proper placement of the implants. A longitudinal incision was created at the tip of the trochanter. The deep fascia was incised. The cannulated awl was used to open the proximal femur. The guidewire was placed across the fracture. The reamer was used to open the canal. Further reaming with the flexible Reamer was carried out to 13 mm. The gamma nail was placed across the fracture site. A separate incision was made for placement of the cannulated guide sleeve. The guide pin was placed in the center of the femoral head. Appropriate measurement was taken. The pin was over reamed. The screw was placed with excellent purchase. The set screw was placed proximally and backed out a quater turn. The jig was removed. Using the perfect kluti kaah technique, the distal locking screw was placed through the distal dynamic hole. The wound was irrigated. The deep fascia was closed with #1 Vicryl suture followed by 2-0 Vicryl suture and cierra. Sterile dressing was applied. The patient was transferred to the recovery room in stable condition. There were no complications. Implants 340 mm long gamma nail. 95 mm lag screw. 37.5 mm distal locking screw. Estimated Blood Loss 200 Urine Output 200 Drains No Complications None Condition Stable Disposition PACU [facility] Billing Surgery - Charge Forward: Surgery Billing
[2023-01-05] MEDS: fentaNYL CITRATE INJ (*CRX) 100 MCG/2 ML VIAL 12.5 MCG IV PUSH ×8 (15:27→15:55)
[2023-01-05 15:38] LABS: Glucose Point of Care 199 mg/dl (65-105)
[2023-01-05 17:09] LABS: Glucose Point of Care 252 mg/dl (65-105)
[2023-01-05] MEDS: ONDANSETRON INJ 4 MG/2 ML VIAL IV PUSH (17:10)
[2023-01-05] MEDS: ALPRAZolam (*CRX) 0.25 MG TABLET PO (18:02)
[2023-01-05] MEDS: SENNA/DOCUSATE SODIUM TABLET 2 TAB PO (18:02)
[2023-01-05] MEDS: GABAPENTIN 300 MG CAPSULE PO ×2 (18:02→22:15)
[2023-01-05] MEDS: ACETAMINOPHEN 500 MG TABLET 1000 MG PO ×2 (18:02→23:55)
[2023-01-05] MEDS: FEBUXOSTAT 40 MG TABLET PO (18:03)
[2023-01-05] MEDS: amLODIPine BESYLATE 5 MG TABLET 10 MG PO (18:03)
[2023-01-05] MEDS: SODIUM ZIRCONIUM CYCLOSILICATE 10 GM POWD.PACK PO (18:03)
[2023-01-05 22:14] LABS: Glucose Point of Care 231 mg/dl (65-105)
[2023-01-05] MEDS: INSULIN GLARGINE (*BKC) 100 UNITS/ML 14 UNITS SUB-Q (22:14)
[2023-01-05] MEDS: SIMVASTATIN 20 MG TABLET 40 MG PO (22:15)
[2023-01-06] VITALS (14 sets, daily range): BP systolic 109–156; BP diastolic 50–74; PULSE 85–98; RESP 16–20; TEMP 36–36.7; O2SAT 91–97; BMI 36.5
[2023-01-06 05:50] LABS: Basophils Percent Auto 0.3 % (0.2-1.2); Eosinophils Percent Auto 0.1 % (0-4.4); Hematocrit 32.1 % (37.0-47.0); Hemoglobin 9.3 g/dL (12.0-15.0); Immature Granulocyte Absolute 0.07 K/mm3 (0.00-0.031); Immature Granulocyte Percent A 0.6 % (0-0.5); Lymphocytes Absolute Auto 1.31 K/mm3 (0.9-3.2); Lymphocytes Percent Auto 11.1 % (18.3-44.2); Mean Corpuscular Hemoglobin 27.8 pg (26-34); Mean Corpuscular Volume 95.8 fl (80-100); Mean Platelet Volume 9.7 fl (7.4-10.4); Monocytes Percent Auto 8.9 % (2.6-8.5); Neutrophils Absolute Auto 9.3 K/mm3 (1.3-6.7); Platelet Count Result 312 k/mm3 (150-375); Red Blood Count 3.35 M/mm3 (4.2-5.4); Red Cell Distribution Width 16.9 % (11.5-14.5); White Blood Count 11.8 K/mm3 (4.5-10.0)
[2023-01-06 06:03] LABS: Anion Gap 7 mmol/L (8-16); Blood Urea Nitrogen 59 mg/dL (7-17); Carbon Dioxide 29 mmol/L (22-30); Chloride 109 mmol/L (98-107); Estimated CRCL calculation 18 ml/min; Estimated Glomerular Filt Rate 18; Glucose 190 mg/dL (65-110); Potassium 4.5 mmol/L (3.4-5.0); Sodium 145 mmol/L (137-145)
[2023-01-06] MEDS: ACETAMINOPHEN 500 MG TABLET 1000 MG PO ×3 (06:03→18:36)
[2023-01-06 06:21] LABS: Anisocytosis 1+ (NORMAL); Hypochromasia 1+ (NORMAL); Platelet Estimate Adequate (Adequate); Schistocytes None Seen (NORMAL)
[2023-01-06 08:04] LABS: Glucose Point of Care 198 mg/dl (65-105)
[2023-01-06] MEDS: polyethylene glycoL 3350 17 GM POWD.PACK PO (08:17)
[2023-01-06] MEDS: OMEGA 3 POLYUNSAT FATTY ACIDS 1 GM CAP 2 GM PO ×2 (08:19→18:28)
[2023-01-06] MEDS: ENOXAPARIN 30 MG/0.3 ML SYRINGE SUB-Q (08:19)
[2023-01-06] MEDS: SENNA/DOCUSATE SODIUM TABLET 2 TAB PO ×2 (08:20→18:29)
[2023-01-06] MEDS: HYDROcodone/acetaminophen (*CRX) 7.5-325 MG TABLET 1 TAB PO (08:20)
[2023-01-06] MEDS: amLODIPine BESYLATE 5 MG TABLET 10 MG PO (08:20)
[2023-01-06] MEDS: CYANOCOBALAMIN 1,000 MCG TABLET 1000 MCG PO (08:20)
--- NOTE | 2023-01-06 08:20 | PM.PNORT ---
Progress Note: A&P Assessment and Plan (1) Intertrochanteric fracture of left hip: Qualifiers: Encounter type: initial encounter Fracture alignment: displaced Fracture type: closed Qualified Code(s): S72.142A - Displaced intertrochanteric fracture of left femur, initial encounter for closed fracture Code(s): S72.142A - Displaced intertrochanteric fracture of left femur, initial encounter for closed fracture Status: Acute Assessment and Plan: POD #1 ORIF with long cephalomedullary nail. Patient doing much better today. Confusion is resolving. She states her pain is controlled at rest. We discussed the importance of trying to get up and walk with physical therapy. Plan for discharge to rehab or SNF once medically cleared. Ortho instructions: D/C to SNF/rehab Follow up in office in 4-6 weeks with xrays. Wound Care: Remove cierra at 2 weeks post op. Daily dressing changes until healed. PT: Weight bearing as tolerated with a walker. DVT prophylaxis: continue Lovenox for 30 days total Pain medication: Tylenol. Subjective Subjective Date/Time Seen: 01/06/23 08:20 Interval history: Patient is doing much better today. The confusion is resolving. She states she is having pain but it is much better than before surgery. She is eager to talk to her family. She is okay with taking Tylenol but does not want to take narcotic pain medications if able. Review of Systems Review of Systems: All systems reviewed & are unremarkable except as noted in HPI and below Exam Narrative: Obese 77 y/o female. Alert and orriented x3. Resting comfortably in bed. Dressing dry and intact with no drainage. Moderate swelling.? No edema. No ecchymosis. No erythema. No hematoma. Range of motion limited due to pain. Calf nontender. Thigh nontender. No varicosities. Distal pulses palpable. Wiggles toes. Objective Data Vital Signs Vital Signs: Vital Signs - 24 hr 01/05/23 10:34 01/05/23 12:04 01/05/23 13:31 Temperature 97.9 F 98.5 F 99.1 F Pulse Rate 108 H 107 H 112 H Respiratory Rate 18 18 14 Blood Pressure 195/87 H 174/74 H Pulse Oximetry 93 93 93 Oxygen Delivery Room Air Oxygen Flow Rate 01/05/23 15:22 01/05/23 16:05 01/05/23 16:20 Temperature 98.3 F Pulse Rate 95 99 101 H Respiratory Rate 17 18 18 Blood Pressure 185/129 H 175/92 H 175/89 H Pulse Oximetry 99 95 96 Oxygen Delivery Simple Face Mask Nasal Cannula Nasal Cannula Oxygen Flow Rate 6 2 2 01/05/23 16:35 01/05/23 15:35 01/05/23 15:50 Temperature Pulse Rate 105 H 93 93 Respiratory Rate 18 18 18 Blood Pressure 180/86 H 204/100 H 171/107 H Pulse Oximetry 96 99 99 Oxygen Delivery Nasal Cannula Simple Face Mask Simple Face Mask Oxygen Flow Rate 2 6 6 01/05/23 10:00 01/05/23 16:58 01/05/23 17:13 Temperature 96.7 F L 96.6 F L Pulse Rate 107 H 105 H Respiratory Rate 18 19 Blood Pressure 136/82 161/71 H Pulse Oximetry 95 92 Oxygen Delivery Room Air Oxygen Flow Rate 01/05/23 17:45 01/05/23 18:47 01/05/23 12:00 Temperature 96.7 F L 97.0 F L Pulse Rate 106 H 103 H 110 H Respiratory Rate 16 16 Blood Pressure 185/69 H 127/59 L Pulse Oximetry 96 99 Oxygen Delivery Oxygen Flow Rate 01/05/23 21:38 01/05/23 21:41 01/05/23 20:00 Temperature 98.5 F 98.5 F Pulse Rate 95 95 102 H Respiratory Rate 22 H 22 H Blood Pressure 164/63 H 164/63 H Pulse Oximetry 97 97 Oxygen Delivery Oxygen Flow Rate 01/05/23 20:00 01/06/23 00:00 01/06/23 01:04 Temperature 96.8 F L Pulse Rate 95 94 96 Respiratory Rate 22 H 20 Blood Pressure 109/59 L Pulse Oximetry 97 97 Oxygen Delivery Room Air Oxygen Flow Rate 01/06/23 01:07 01/06/23 04:00 01/06/23 04:49 Temperature 96.8 F L 97 F L Pulse Rate 96 95 98 Respiratory Rate 20 20 Blood Pressure 109/59 L 151/66 H Pulse Oximetry 97 97 Oxygen Delivery Oxygen Flow Rate 01/06/23 04:52 Temperature 97 F L Pulse Rate 98 Re
[2023-01-06] MEDS: ASPIRIN 81 MG ENTERIC TABLET PO (08:21)
[2023-01-06] MEDS: MULTIVITAMINS THERAPEUTIC TAB (*BKC) 1 TABLET PO (08:21)
[2023-01-06] MEDS: GABAPENTIN 300 MG CAPSULE PO ×4 (08:21→20:13)
--- NOTE | 2023-01-06 09:08 | PM.IMPN ---
Progress Note: A&P Assessment and Plan (1) Closed left hip fracture: Code(s): S72.002A - Fracture of unspecified part of neck of left femur, initial encounter for closed fracture Status: Ruled-out (2) Hypertriglyceridemia: Code(s): E78.1 - Pure hyperglyceridemia Status: Acute (3) Type 2 diabetes mellitus with chronic kidney disease, without long-term current use of insulin: Code(s): E11.22 - Type 2 diabetes mellitus with diabetic chronic kidney disease Status: Acute (4) PAD (peripheral artery disease): Code(s): I73.9 - Peripheral vascular disease, unspecified Status: Acute (5) BMI 37.0-37.9, adult: Code(s): Z68.37 - Body mass index [BMI] 37.0-37.9, adult Status: Acute (6) Menopausal state: Code(s): N95.1 - Menopausal and female climacteric states Status: Acute (7) Type 2 diabetes mellitus with hyperglycemia: Code(s): E11.65 - Type 2 diabetes mellitus with hyperglycemia Status: Chronic (8) Hypertension, essential: Code(s): I10 - Essential (primary) hypertension Status: Chronic (9) Hyperlipidemia, unspecified: Qualifiers: Hyperlipidemia type: unspecified Qualified Code(s): E78.5 - Hyperlipidemia, unspecified Code(s): E78.5 - Hyperlipidemia, unspecified Status: Chronic (10) Diabetic peripheral neuropathy: Code(s): E11.42 - Type 2 diabetes mellitus with diabetic polyneuropathy Status: Chronic (11) Coronary artery disease involving [place] heart without angina pectoris: Code(s): I25.10 - Atherosclerotic heart disease of [place] coronary artery without angina pectoris Status: Acute (12) Chronic kidney disease, stage 4 (severe): Code(s): N18.4 - Chronic kidney disease, stage 4 (severe) Status: Chronic (13) Anemia: Code(s): D64.9 - Anemia, unspecified Status: Chronic (14) CHF (congestive heart failure), NYHA class I: Code(s): I50.9 - Heart failure, unspecified Status: Chronic (15) Pulmonary HTN: Code(s): I27.20 - Pulmonary hypertension, unspecified Status: Acute (16) H/O heart artery stent: Code(s): Z95.5 - Presence of coronary angioplasty implant and graft Status: Acute (17) Secondary hyperparathyroidism, not elsewhere classified: Code(s): E21.1 - Secondary hyperparathyroidism, not elsewhere classified Status: Acute (18) Acute on chronic renal failure: Code(s): N17.9 - Acute kidney failure, unspecified; N18.9 - Chronic kidney disease, unspecified Status: Acute (19) Hyperkalemia: Code(s): E87.5 - Hyperkalemia Status: Acute Plan Left hip fracture Patient fell down at home and had pain in her left hip hence EMS was called for evaluation XR:Comminuted, displaced left femoral intertrochanteric fracture with varus angulation. sp ORIF left hip with cephalomedullary nail (gamma nail) post op day 1 NATE on CKD IV, hyperkalemia Pt treated for UTI creat is 2.6 continue fluids potassium is nl Can consult nephrology Acute encephalopathy much improved after surgery Likely secondary to pain medication, electrolyte disorder and dehydration, and UTI UTI UA shows pyuria, microscopic hematuria, urine is cloudy Start ceftriaxone IV Gram negative bacilli in UC Hypertension urgency resolved BP is stable Start hydralazine 10 mg IV push Q 4 as needed with parameters Anxiety Xanax 0.25 mg p.o. t.i.d. p.r.n. given for anxiety History of CAD Monitor cardiac enzymes x3 given her history of CAD Patient denies chest pain Serial troponin x3 negative Chronic anemia Hemoglobin lower than baseline, possible due to dilution Follow CBC, stool guaiac, iron panel Continue with home meds. PCp follow up Subjective Date/time seen: 01/06/23 09:08 Interval history: Pt is sp ORIF left hip with cephalomedullary nail (gamma nail) Post day 1 Pt is less confu
--- NOTE | 2023-01-06 09:43 | WPDANESPN ---
Anes - Prog Note Post-Op Date/Time: 01/06/23 09:43 Cardiovascular status: normal Respiratory status: normal Airway patency: baseline Mental status: baseline Post-Op hydration status: normal Vital Signs: Last Vital Signs Temp 97 F L 01/06/23 04:52 Pulse 98 01/06/23 04:52 Resp 20 01/06/23 04:52 BP 151/66 H 01/06/23 04:52 Pulse Ox 97 01/06/23 04:52 O2 Del Method Room Air 01/06/23 08:23 O2 Flow Rate 2 01/05/23 16:35 Pain Score (VAS): 4 I/O: Intake & Output 01/05/23 01/06/23 01/06/23 23:59 07:59 15:59 Intake Total 150 0 Output Total 300 Balance 150 -300 Laboratory Tests 01/06/23 05:28 01/06/23 05:28 01/05/23 01/05/23 01/05/23 12:03 15:34 17:00 WBC RBC Hgb Hct MCV MCH MCHC RDW Plt Count MPV Immature Gran % (Auto) Neut % (Auto) Lymph % (Auto) [place] % (Auto) Eos % (Auto) Baso % (Auto) Lymph # (Auto) [place] # (Auto) Eos # (Auto) Baso # (Auto) Abs Immat Gran (auto) Absolute Neuts (auto) Absolute Nucleated RBC Nucleated RBC % Platelet Estimate Hypochromasia Anisocytosis Schistocytes Sodium Potassium Chloride Carbon Dioxide Anion Gap BUN Creatinine Estim Creat Clear Calc Estimated GFR Glucose POC Capillary Glucose 245 H 199 H 252 H Calcium 01/05/23 01/06/23 01/06/23 21:37 05:28 07:57 WBC 11.8 H RBC 3.35 L Hgb 9.3 L Hct 32.1 L MCV 95.8 MCH 27.8 MCHC 29.0 L RDW 16.9 H Plt Count 312 MPV 9.7 Immature Gran % (Auto) 0.6 H Neut % (Auto) 79.0 H Lymph % (Auto) 11.1 L [place] % (Auto) 8.9 H Eos % (Auto) 0.1 Baso % (Auto) 0.3 Lymph # (Auto) 1.31 [place] # (Auto) 1.0 H Eos # (Auto) 0.0 Baso # (Auto) 0.0 Abs Immat Gran (auto) 0.07 H Absolute Neuts (auto) 9.3 H Absolute Nucleated RBC 0.0 Nucleated RBC % 0.0 Platelet Estimate Adequate Hypochromasia 1+ Anisocytosis 1+ Schistocytes None seen Sodium 145 Potassium 4.5 Chloride 109 H Carbon Dioxide 29 Anion Gap 7 L BUN 59 H D Creatinine 2.60 H Estim Creat Clear Calc 18 Estimated GFR 18 L Glucose 190 H POC Capillary Glucose 231 H 198 H Calcium 9.0 Microbiology 01/04/23 13:16 Urine [place] Urine Culture - Preliminary Gram negative bacilli isolated Post-procedural complaints: none Patient Feedback: Patient satisfied with anesthetic care.
[2023-01-06] MEDS: SODIUM CHLORIDE 0.9% IV 1,000 ML 70 ML IV CONT (12:10)
[2023-01-06 12:11] LABS: Glucose Point of Care 234 mg/dl (65-105)
[2023-01-06] MEDS: INSULIN ASPART (*BKC) 100 UNITS/ML SUB-Q (12:25)
--- NOTE | 2023-01-06 13:05 | PM.PNNEP ---
Progress Note: A&P Assessment and Plan (1) Chronic kidney disease, stage 4 (severe): Code(s): N18.4 - Chronic kidney disease, stage 4 (severe) Status: Chronic Assessment and Plan: stable baseline creatinine runs ~ 2.3 - 2.7mg/dl in the last year or so secondary to diabetes, hypertension vascular disease and age-related change (2) Hyperkalemia: Code(s): E87.5 - Hyperkalemia Status: Acute Assessment and Plan: resolved etiology not clear s/p medical management follow trend of repeat K+ levels (3) Altered mental status: Code(s): R41.82 - Altered mental status, unspecified Status: Acute Assessment and Plan: significant improvement backing off on narcotics and holding gabapentin possibly secondary to UTI follow mentation (4) Intertrochanteric fracture of left hip: Qualifiers: Encounter type: initial encounter Fracture type: closed Fracture alignment: displaced Qualified Code(s): S72.142A - Displaced intertrochanteric fracture of left femur, initial encounter for closed fracture Code(s): S72.142A - Displaced intertrochanteric fracture of left femur, initial encounter for closed fracture Status: Acute Assessment and Plan: as noted by admission imaging Orthopedic recommendations following s/p ORIF with long cephalomedullary nail (on 01/05/23) PT/OT pain control (5) Hypertension, essential: Code(s): I10 - Essential (primary) hypertension Status: Chronic Assessment and Plan: reasonable control may need to use PRN IV medications follow trend of hemodynamics (6) Anemia: Code(s): D64.9 - Anemia, unspecified Status: Chronic Assessment and Plan: partly due to CKD follow trend of H/H may need Epogen while hospitalized (7) Type 2 diabetes mellitus with hyperglycemia: Code(s): E11.65 - Type 2 diabetes mellitus with hyperglycemia Status: Chronic Assessment and Plan: follow accu-cheks glycemic control per hospitalists Will continue to follow. Subjective Date/time seen: 01/06/23 13:05 Interval history: Follow-up for chronic kidney disease. Mentation seems to be doing significantly better at the time of my visit; s/p surgical intervention regarding her Exam Narrative: General: elderly but WD/WN female in NAD Heart: normal S1 and S2; no rub Lungs: clear to auscultation Abdomen: soft, nontender, nondistended, positive bowel sounds Extremities: no cyanosis or clubbing; no edema Skin: warm and dry Objective Data Vital Signs Vital Signs: Vital Signs Temp Pulse Resp BP Pulse Ox O2 Del Method 01/06/23 13:00 98.0 F 89 16 150/64 H 93 01/06/23 08:00 Room Air 01/06/23 08:48 Room Air 01/06/23 08:23 Room Air 01/06/23 04:52 97 F L 98 20 151/66 H 97 01/06/23 04:49 97 F L 98 20 151/66 H 97 01/06/23 04:00 95 01/06/23 01:07 96.8 F L 96 20 109/59 L 97 01/06/23 01:04 96.8 F L 96 20 109/59 L 97 01/06/23 00:00 94 01/05/23 20:00 95 22 H 97 Room Air 01/05/23 20:00 102 H 01/05/23 21:41 98.5 F 95 22 H 164/63 H 97 01/05/23 21:38 98.5 F 95 22 H 164/63 H 97 01/05/23 18:47 97.0 F L 103 H 16 127/59 L 99 01/05/23 17:45 96.7 F L 106 H 16 185/69 H 96 01/05/23 17:13 96.6 F L 105 H 19 161/71 H 92 Intake/Output Intake/Output: Intake & Output 01/03/23 01/04/23 01/05/23 01/06/23 23:59 23:59 23:59 23:59 Intake Total 200 170 300 240 Output Total 825 1650 1275 300 [facility] -625 -1480 -975 -60 Meds/Results Medications: Active Medications Generic Name Dose Route Start Last Admin Trade Name Freq PRN Reason Stop Dose Admin Acetaminophen 650 mg 01/01/23 20:44 01/04/23 09:14 Acetaminophen 325 Mg Tablet PO 650 mg Q4H PRN Administration Mild Pain (1-3) or Fever Acetaminophen 1,000 mg 01/05/23 18:00
--- NOTE | 2023-01-06 13:05 | P.PNNP_ITS ---
Progress Note: A&P Assessment and Plan (1) Chronic kidney disease, stage 4 (severe): Code(s): N18.4 - Chronic kidney disease, stage 4 (severe) Status: Chronic Assessment and Plan: * stable * baseline creatinine runs ~ 2.3 - 2.7mg/dl in the last year or so * secondary to diabetes, hypertension vascular disease and age-related change (2) Hyperkalemia: Code(s): E87.5 - Hyperkalemia Status: Acute Assessment and Plan: * resolved * etiology not clear * s/p medical management * follow trend of repeat K+ levels (3) Altered mental status: Code(s): R41.82 - Altered mental status, unspecified Status: Acute Assessment and Plan: * significant improvement * backing off on narcotics and holding gabapentin * possibly secondary to UTI * follow mentation (4) Intertrochanteric fracture of left hip: Qualifiers: Encounter type: initial encounter Fracture type: closed Fracture align ment: displaced Qualified Code(s): S72.142A - Displaced intertrochanteric fracture of left femur, initial encounter for closed fracture Code(s): S72.142A - Displaced intertrochanteric fracture of left femur, initial encounter for closed fracture Status: Acute Assessment and Plan: * as noted by admission imaging * Orthopedic recommendations following * s/p ORIF with long cephalomedullary nail (on 01/05/23) * PT/OT * pain control (5) Hypertension, essential: Code(s): I10 - Essential (primary) hypertension Status: Chronic Assessment and Plan: * reasonable control * may need to use PRN IV medications * follow trend of hemodynamics (6) Anemia: Code(s): D64.9 - Anemia, unspecified Status: Chronic Assessment and Plan: * partly due to CKD * follow trend of H/H * may need Epogen while hospitalized (7) Type 2 diabetes mellitus with hyperglycemia: Code(s): E11.65 - Type 2 diabetes mellitus with hyperglycemia Status: Chronic Assessment and Plan: * follow accu-cheks * glycemic control per hospitalists Will continue to follow. Subjective Date/time seen: 01/06/23 13:05 Interval history: Follow-up for chronic kidney disease. Mentation seems to be doing significantly better at the time of my visit; s/p surgical intervention regarding her Exam Narrative: General: elderly but WD/WN female in NAD Heart: normal S1 and S2; no rub Lungs: clear to auscultation Abdomen: soft, nontender, nondistended, positive bowel sounds Extremities: no cyanosis or clubbing; no edema Skin: warm and dry Objective Data Vital Signs Vital Signs: Vital Signs Temp Pulse Resp BP Pulse Ox O2 Del Method 01/06/23 13:00 98.0 F 89 16 150/64 H 93 01/06/23 08:00 Room Air 01/06/23 08:48 Room Air 01/06/23 08:23 Room Air 01/06/23 04:52 97 F L 98 20 151/66 H 97 01/06/23 04:49 97 F L 98 20 151/66 H 97 01/06/23 04:00 95 01/06/23 01:07 96.8 F L 96 20 109/59 L 97 01/06/23 01:04 96.8 F L 96 20 109/59 L 97 01/06/23 00:00 94 01/05/23 20:00 95 22 H 97 Room Air 01/05/23 20:00 102 H 01/05/23 21:41 98.5 F 95 22 H 164/63 H 97 01/05/23 21:38 98.5 F 95 22 H 164/63 H 97 1
--- NOTE | 2023-01-06 15:11 | PC.NURSE ---
Patient IV access lost. After multiple unsuccessful attempts, vascular access nurse Cesar was contacted for assistance.
[2023-01-06 16:49] LABS: Glucose Point of Care 176 mg/dl (65-105)
[2023-01-06 20:45] LABS: Glucose Point of Care 155 mg/dl (65-105)
[2023-01-07] VITALS (11 sets, daily range): BP systolic 116–150; BP diastolic 43–67; PULSE 87–94; RESP 16–18; TEMP 36.2–36.7; O2SAT 94–100
--- NOTE | 2023-01-07 07:23 | PM.PNORT ---
Progress Note: A&P Assessment and Plan (1) Intertrochanteric fracture of left hip: Qualifiers: Encounter type: initial encounter Fracture type: closed Fracture alignment: displaced Qualified Code(s): S72.142A - Displaced intertrochanteric fracture of left femur, initial encounter for closed fracture Code(s): S72.142A - Displaced intertrochanteric fracture of left femur, initial encounter for closed fracture Status: Acute Assessment and Plan: POD #2 ORIF with long cephalomedullary nail. Patient resting comfortably in bed. In pain. Tylenol helps. She does not want to take narcotic pain medications. She states that she is struggling with weight bearing. We discussed the importance of trying to get up and walk with physical therapy. Plan for discharge to rehab or SNF once medically cleared. Ortho instructions: D/C to SNF/rehab Follow up in office in 4-6 weeks with xrays. Wound Care: Remove cierra at 2 weeks post op. Daily dressing changes until healed. PT: Weight bearing as tolerated with a walker. DVT prophylaxis: continue Lovenox for 30 days total Pain medication: Tylenol. Subjective Subjective Date/Time Seen: 01/07/23 07:23 Interval history: Patient resting comfortable in bed. She states she is in pain. Tylenol helps. She does not want to take any narcotic pain medications. Review of Systems Review of Systems: All systems reviewed & are unremarkable except as noted in HPI and below Exam Narrative: Obese 77 y/o female. Alert and orriented x3. Resting comfortably in bed. Dressing dry and intact with no drainage. Moderate swelling.? No edema. No ecchymosis. No erythema. No hematoma. Range of motion limited due to pain. Calf nontender. Thigh nontender. No varicosities. Distal pulses palpable. Wiggles toes. Objective Data Vital Signs Vital Signs: Vital Signs - 24 hr 01/06/23 08:23 01/06/23 08:48 01/06/23 08:00 Temperature Pulse Rate Respiratory Rate Blood Pressure Pulse Oximetry Oxygen Delivery Room Air Room Air Room Air 01/06/23 14:10 01/06/23 08:00 01/06/23 12:00 Temperature 98.0 F Pulse Rate 89 92 92 Respiratory Rate 16 Blood Pressure 150/64 H Pulse Oximetry 93 Oxygen Delivery 01/06/23 16:00 01/06/23 14:24 01/06/23 19:13 Temperature 97.1 F L 97.7 F Pulse Rate 91 89 87 Respiratory Rate 16 18 Blood Pressure 156/74 H 118/50 L Pulse Oximetry 93 93 Oxygen Delivery 01/06/23 20:53 01/06/23 20:00 01/06/23 20:00 Temperature 97.6 F Pulse Rate 88 85 Respiratory Rate 18 Blood Pressure 136/59 L Pulse Oximetry 91 Oxygen Delivery Room Air 01/07/23 00:00 01/07/23 04:00 01/07/23 05:28 Temperature 98.0 F Pulse Rate 91 87 91 Respiratory Rate 18 Blood Pressure 117/48 L Pulse Oximetry 98 Oxygen Delivery Intake/Output Intake/Output: Intake & Output 01/04/23 01/05/23 01/06/23 01/07/23 23:59 23:59 23:59 23:59 Intake Total 170 300 790 0 Output Total 1650 1275 550 0 Balance -1480 -975 240 0 Meds/Results Medications: Active Medications Generic Name Dose Route Start Last Admin Trade Name Freq PRN Reason Stop Dose Admin Acetaminophen 650 mg 01/01/23 20:44 01/04/23 09:14 Acetaminophen 325 Mg Tablet PO 650 mg Q4H PRN Administration Mild Pain (1-3) or Fever Acetaminophen 1,000 mg 01/05/23 18:00 01/07/23 06:07 Acetaminophen 500 Mg Tablet PO Not Given Q6H JACKY Hydrocodone Bitart/Acetaminophen 1 tab 01/02/23 08:58 01/06/23 08:20 Hydrocodone/Acetaminophen (*Crx) 7.5-325 Mg Tablet PO 1 tab Q4H PRN Administration Pain Rated 7-10 Al Hydrox/Mg Hydrox/Simethicone 30 ml 01/01/23 20:44 Mag Hydrox/Al Hydrox/Simeth 30 Ml Udc PO QID PRN Dyspepsia Alprazolam 0.25 mg 01/01/23 20:44 01/05/23 18:02 Alprazolam (*Crx) 0.25 Mg Tablet PO 0.25 mg TID PRN Administration Anxiety Amlodipine Besylate 10 mg 01/02/23 09:00
[2023-01-07 08:23] LABS: Glucose Point of Care 148 mg/dl (65-105)
[2023-01-07 08:34] LABS: Albumin Level 3.4 g/dL (3.5-5.1); Anion Gap 7 mmol/L (8-16); Blood Urea Nitrogen 63 mg/dL (7-17); Calcium 8.5 mg/dL (8.4-10.2); Carbon Dioxide 29 mmol/L (22-30); Chloride 101 mmol/L (98-107); Estimated CRCL calculation 17 ml/min; Estimated Glomerular Filt Rate 17; Glucose 151 mg/dL (65-110); Phosphorus 4.8 mg/dL (2.5-4.5); Potassium 4.3 mmol/L (3.4-5.0); Sodium 137 mmol/L (137-145)
[2023-01-07] MEDS: amLODIPine BESYLATE 5 MG TABLET 10 MG PO (09:15)
[2023-01-07] MEDS: ASPIRIN 81 MG ENTERIC TABLET PO (09:15)
[2023-01-07] MEDS: GABAPENTIN 300 MG CAPSULE PO ×4 (09:15→21:10)
[2023-01-07] MEDS: FAMOTIDINE 10 MG TABLET PO (09:16)
[2023-01-07] MEDS: OMEGA 3 POLYUNSAT FATTY ACIDS 1 GM CAP 2 GM PO ×2 (09:18→18:31)
[2023-01-07] MEDS: MULTIVITAMINS THERAPEUTIC TAB (*BKC) 1 TABLET PO (09:18)
[2023-01-07] MEDS: ENOXAPARIN 30 MG/0.3 ML SYRINGE SUB-Q (09:19)
--- NOTE | 2023-01-07 09:38 | PCPTNOTE ---
Attempted to see patient for PT, however patient refused due to 10/10 pain. Nursing notified.
[2023-01-07] MEDS: HYDROcodone/acetaminophen (*CRX) 7.5-325 MG TABLET 1 TAB PO (09:54)
[2023-01-07 12:14] LABS: Glucose Point of Care 264 mg/dl (65-105)
[2023-01-07] MEDS: ACETAMINOPHEN 500 MG TABLET 1000 MG PO ×3 (12:31→23:51)
[2023-01-07] MEDS: INSULIN ASPART (*BKC) 100 UNITS/ML SUB-Q (12:32)
[2023-01-07] MEDS: SODIUM CHLORIDE 0.9% IV 1,000 ML 70 ML IV CONT (12:37)
--- NOTE | 2023-01-07 13:55 | PM.PNNEP ---
Progress Note: A&P Assessment and Plan (1) Chronic kidney disease, stage 4 (severe): Code(s): N18.4 - Chronic kidney disease, stage 4 (severe) Status: Chronic Assessment and Plan: stable baseline creatinine runs ~ 2.3 - 2.7mg/dl in the last year or so secondary to diabetes, hypertension vascular disease and age-related change (2) Hyperkalemia: Code(s): E87.5 - Hyperkalemia Status: Acute Assessment and Plan: resolved etiology not clear s/p medical management follow trend of repeat K+ levels (3) Altered mental status: Code(s): R41.82 - Altered mental status, unspecified Status: Acute Assessment and Plan: significant improvement suspect secondary to UTI follow mentation (4) Intertrochanteric fracture of left hip: Qualifiers: Encounter type: initial encounter Fracture alignment: displaced Fracture type: closed Qualified Code(s): S72.142A - Displaced intertrochanteric fracture of left femur, initial encounter for closed fracture Code(s): S72.142A - Displaced intertrochanteric fracture of left femur, initial encounter for closed fracture Status: Acute Assessment and Plan: as noted by admission imaging Orthopedic recommendations following s/p ORIF with long cephalomedullary nail (on 01/05/23) PT/OT pain control (5) Hypertension, essential: Code(s): I10 - Essential (primary) hypertension Status: Chronic Assessment and Plan: reasonable control may need to use PRN IV medications follow trend of hemodynamics (6) Anemia: Code(s): D64.9 - Anemia, unspecified Status: Chronic Assessment and Plan: partly due to CKD follow trend of H/H may need Epogen while hospitalized (7) Type 2 diabetes mellitus with hyperglycemia: Code(s): E11.65 - Type 2 diabetes mellitus with hyperglycemia Status: Chronic Assessment and Plan: follow accu-cheks glycemic control per hospitalists Will continue to follow. Subjective Date/time seen: 01/07/23 13:55 Interval history: Follow-up for chronic kidney disease. Mentation seems to be back to normal at the time of my visit; attempting to work with PT/OT as tolerated; eating and drinking better; no apparent distress voiced currently. Exam Narrative: General: elderly but WD/WN female in NAD Heart: normal S1 and S2; no rub Lungs: clear to auscultation Abdomen: soft, nontender, nondistended, positive bowel sounds Extremities: no cyanosis or clubbing; no edema Skin: warm and intact Objective Data Vital Signs Vital Signs: Vital Signs Temp Pulse Resp BP Pulse Ox O2 Del Method 01/07/23 13:36 97.6 F 92 16 116/47 L 94 01/07/23 12:00 92 01/07/23 08:00 87 01/07/23 09:50 Room Air 01/07/23 10:13 98.1 F 91 18 150/60 H 100 01/07/23 09:10 94 146/67 H 96 01/07/23 05:28 98.0 F 91 18 117/48 L 98 01/07/23 04:00 87 01/07/23 00:00 91 01/06/23 20:00 85 01/06/23 20:00 Room Air 01/06/23 20:53 97.6 F 88 18 136/59 L 91 01/06/23 19:13 97.7 F 87 18 118/50 L 93 01/06/23 16:00 91 Intake/Output Intake/Output: Intake & Output 01/04/23 01/05/23 01/06/23 01/07/23 23:59 23:59 23:59 23:59 Intake Total 170 806 886 8366 Output Total 1650 1275 550 0 Balance -1480 -487 577 2529 Meds/Results Medications: Active Medications Generic Name Dose Route Start Last Admin Trade Name Freq PRN Reason Stop Dose Admin Acetaminophen 650 mg 01/01/23 20:44 01/04/23 09:14 Acetaminophen 325 Mg Tablet PO 650 mg Q4H PRN Administration Mild Pain (1-3) or Fever Acetaminophen 1,000 mg 01/05/23 18:00 01/07/23 12:31 Acetaminophen 500 Mg Tablet PO 1,000 mg Q6H JACKY Administration Hydrocodone Bitart/Acetaminophen 1 tab 01/02/23 08:58 01/07/23 09:54 Hydrocodone/Acetaminophen (*Crx) 7.5-325 Mg Tabl
--- NOTE | 2023-01-07 13:55 | P.PNNP_ITS ---
Progress Note: A&P Assessment and Plan (1) Chronic kidney disease, stage 4 (severe): Code(s): N18.4 - Chronic kidney disease, stage 4 (severe) Status: Chronic Assessment and Plan: * stable * baseline creatinine runs ~ 2.3 - 2.7mg/dl in the last year or so * secondary to diabetes, hypertension vascular disease and age-related change (2) Hyperkalemia: Code(s): E87.5 - Hyperkalemia Status: Acute Assessment and Plan: * resolved * etiology not clear * s/p medical management * follow trend of repeat K+ levels (3) Altered mental status: Code(s): R41.82 - Altered mental status, unspecified Status: Acute Assessment and Plan: * significant improvement * suspect secondary to UTI * follow mentation (4) Intertrochanteric fracture of left hip: Qualifiers: Encounter type: initial encounter Fracture alignment: displaced Fracture type: closed Qualified Code(s): S72.142A - Displaced intertrochanteric fracture of left femur, initial encounter for closed fracture Code(s): S72.142A - Displaced intertrochanteric fracture of left femur, initial encounter for closed fracture Status: Acute Assessment and Plan: * as noted by admission imaging * Orthopedic recommendations following * s/p ORIF with long cephalomedullary nail (on 01/05/23) * PT/OT * pain control (5) Hypertension, essential: Code(s): I10 - Essential (primary) hypertension Status: Chronic Assessment and Plan: * reasonable control * may need to use PRN IV medications * follow trend of hemodynamics (6) Anemia: Code(s): D64.9 - Anemia, unspecified Status: Chronic Assessment and Plan: * partly due to CKD * follow trend of H/H * may need Epogen while hospitalized (7) Type 2 diabetes mellitus with hyperglycemia: Code(s): E11.65 - Type 2 diabetes mellitus with hyperglycemia Status: Chronic Assessment and Plan: * follow accu-cheks * glycemic control per hospitalists Will continue to follow. Subjective Date/time seen: 01/07/23 13:55 Interval history: Follow-up for chronic kidney disease. Mentation seems to be back to normal at the time of my visit; attempting to work with PT/OT as tolerated; eating and drinking better; no apparent distress voiced currently. Exam Narrative: General: elderly but WD/WN female in NAD Heart: normal S1 and S2; no rub Lungs: clear to auscultation Abdomen: soft, nontender, nondistended, positive bowel sounds Extremities: no cyanosis or clubbing; no edema Skin: warm and intact Objective Data Vital Signs Vital Signs: Vital Signs Temp Pulse Resp BP Pulse Ox O2 Del Method 01/07/23 13:36 97.6 F 92 16 116/47 L 94 01/07/23 12:00 92 01/07/23 08:00 87 01/07/23 09:50 Room Air 01/07/23 10:13 98.1 F 91 18 150/60 H 100 01/07/23 09:10 94 146/67 H 96 01/07/23 05:28 98.0 F 91 18 117/48 L 98 01/07/23 04:00 87 01/07/23 00:00 91 01/06/23 20:00 85 01/06/23 20:00 Room Air 01/06/23 20:53 97.6 F 88 18 136/59 L 91 01/06/23 19:13 97.7 F 87 18 118/50 L 93 01/06/23 16:00 91 Intake/Output Intake/Output:
--- NOTE | 2023-01-07 14:45 | PC.NURSE ---
On 01/07/23, the student, [Gordon Costa], provided care and completed [facility] documentation on this patient. I have reviewed the student's documentation and agree with the findings.
[2023-01-07 17:29] LABS: Glucose Point of Care 129 mg/dl (65-105)
--- NOTE | 2023-01-07 17:46 | PM.IMPN ---
Progress Note: A&P Assessment and Plan (1) Closed left hip fracture: Code(s): S72.002A - Fracture of unspecified part of neck of left femur, initial encounter for closed fracture Status: Ruled-out (2) Hypertriglyceridemia: Code(s): E78.1 - Pure hyperglyceridemia Status: Acute (3) Type 2 diabetes mellitus with chronic kidney disease, without long-term current use of insulin: Code(s): E11.22 - Type 2 diabetes mellitus with diabetic chronic kidney disease Status: Acute (4) PAD (peripheral artery disease): Code(s): I73.9 - Peripheral vascular disease, unspecified Status: Acute (5) BMI 37.0-37.9, adult: Code(s): Z68.37 - Body mass index [BMI] 37.0-37.9, adult Status: Acute (6) Menopausal state: Code(s): N95.1 - Menopausal and female climacteric states Status: Acute (7) Type 2 diabetes mellitus with hyperglycemia: Code(s): E11.65 - Type 2 diabetes mellitus with hyperglycemia Status: Chronic (8) Hypertension, essential: Code(s): I10 - Essential (primary) hypertension Status: Chronic (9) Hyperlipidemia, unspecified: Qualifiers: Hyperlipidemia type: unspecified Qualified Code(s): E78.5 - Hyperlipidemia, unspecified Code(s): E78.5 - Hyperlipidemia, unspecified Status: Chronic (10) Diabetic peripheral neuropathy: Code(s): E11.42 - Type 2 diabetes mellitus with diabetic polyneuropathy Status: Chronic (11) Coronary artery disease involving [place] heart without angina pectoris: Code(s): I25.10 - Atherosclerotic heart disease of [place] coronary artery without angina pectoris Status: Acute (12) Chronic kidney disease, stage 4 (severe): Code(s): N18.4 - Chronic kidney disease, stage 4 (severe) Status: Chronic (13) Anemia: Code(s): D64.9 - Anemia, unspecified Status: Chronic (14) CHF (congestive heart failure), NYHA class I: Code(s): I50.9 - Heart failure, unspecified Status: Chronic (15) Pulmonary HTN: Code(s): I27.20 - Pulmonary hypertension, unspecified Status: Acute (16) H/O heart artery stent: Code(s): Z95.5 - Presence of coronary angioplasty implant and graft Status: Acute (17) Secondary hyperparathyroidism, not elsewhere classified: Code(s): E21.1 - Secondary hyperparathyroidism, not elsewhere classified Status: Acute (18) Acute on chronic renal failure: Code(s): N17.9 - Acute kidney failure, unspecified; N18.9 - Chronic kidney disease, unspecified Status: Acute (19) Hyperkalemia: Code(s): E87.5 - Hyperkalemia Status: Acute Plan Left hip fracture Patient fell down at home and had pain in her left hip hence EMS was called for evaluation XR:Comminuted, displaced left femoral intertrochanteric fracture with varus angulation. sp ORIF left hip with cephalomedullary nail (gamma nail) NATE on CKD IV, hyperkalemia Pt treated for UTI creat is 2.6 On IV fluid Consulted nephrology Acute encephalopathy much improved after surgery Likely secondary to pain medication, electrolyte disorder and dehydration, and UTI UTI UA shows pyuria, microscopic hematuria, urine is cloudy Start ceftriaxone IV Urine culture E coli. Sensitive to ceftriaxone Hypertension urgency resolved BP is stable Start hydralazine 10 mg IV push Q 4 as needed with parameters Anxiety Xanax 0.25 mg p.o. t.i.d. p.r.n. given for anxiety History of CAD Monitor cardiac enzymes x3 given her history of CAD Patient denies chest pain Serial troponin x3 negative Chronic anemia Hemoglobin lower than baseline, possible due to dilution Follow CBC, stool guaiac, iron panel Continue with home meds. PCp follow up Subjective Date/time seen: 01/07/23 17:46 Interval history: Chart reviewed. Patient work with therapy today. Complains of pain in her left hip. No fever chills. Vital stable. S
[2023-01-07] MEDS: SIMVASTATIN 20 MG TABLET 40 MG PO (21:10)
[2023-01-07] MEDS: INSULIN GLARGINE (*BKC) 100 UNITS/ML 14 UNITS SUB-Q (21:11)
[2023-01-07 22:16] LABS: Glucose Point of Care 195 mg/dl (65-105)
[2023-01-08] VITALS (12 sets, daily range): BP systolic 123–145; BP diastolic 50–66; PULSE 80–90; RESP 16–18; TEMP 36.3–36.6; O2SAT 93–96
[2023-01-08] MEDS: SODIUM CHLORIDE 0.9% IV 1,000 ML 70 ML IV CONT (04:47)
[2023-01-08] MEDS: ACETAMINOPHEN 500 MG TABLET 1000 MG PO ×3 (05:52→17:12)
[2023-01-08 07:12] LABS: Alanine Aminotransferase 39 U/L (6-35); Albumin Level 3.1 g/dL (3.5-5.1); Alkaline Phosphatase 82 U/L (38-126); Anion Gap 8 mmol/L (8-16); Aspartate Amino Transferase 30 U/L (14-36); Bilirubin,Total 0.3 mg/dL (0.2-1.3); Blood Urea Nitrogen 77 mg/dL (7-17); Calcium 8.1 mg/dL (8.4-10.2); Carbon Dioxide 26 mmol/L (22-30); Chloride 104 mmol/L (98-107); Estimated CRCL calculation 17 ml/min; Estimated Glomerular Filt Rate 16; Glucose 177 mg/dL (65-110); Magnesium 2.4 mg/dL (1.6-2.3); Sodium 138 mmol/L (137-145)
[2023-01-08 08:36] LABS: Glucose Point of Care 159 mg/dl (65-105)
[2023-01-08] MEDS: CYANOCOBALAMIN 1,000 MCG TABLET 1000 MCG PO (08:38)
[2023-01-08] MEDS: amLODIPine BESYLATE 5 MG TABLET 10 MG PO (08:38)
[2023-01-08] MEDS: ASPIRIN 81 MG ENTERIC TABLET PO (08:38)
[2023-01-08] MEDS: CHOLECALCIFEROL 1,000 UNITS TABLET 5000 UNITS PO (08:38)
[2023-01-08] MEDS: GABAPENTIN 300 MG CAPSULE PO ×4 (08:39→22:04)
[2023-01-08] MEDS: FEBUXOSTAT 40 MG TABLET PO (08:39)
[2023-01-08] MEDS: MULTIVITAMINS THERAPEUTIC TAB (*BKC) 1 TABLET PO (08:39)
[2023-01-08] MEDS: OMEGA 3 POLYUNSAT FATTY ACIDS 1 GM CAP 2 GM PO ×2 (08:39→17:12)
[2023-01-08] MEDS: FAMOTIDINE 10 MG TABLET PO (08:39)
[2023-01-08 09:12] LABS: Basophils Percent Auto 0.4 % (0.2-1.2); Eosinophils Absolute Auto 0.3 K/mm3 (0-0.3); Eosinophils Percent Auto 3.8 % (0-4.4); Hematocrit 30.3 % (37.0-47.0); Hemoglobin 8.5 g/dL (12.0-15.0); Immature Granulocyte Absolute 0.11 K/mm3 (0.00-0.031); Immature Granulocyte Percent A 1.5 % (0-0.5); Lymphocytes Absolute Auto 1.85 K/mm3 (0.9-3.2); Lymphocytes Percent Auto 25.2 % (18.3-44.2); Mean Corpuscular HGB Conc 28.1 g/dl (32-36); Mean Corpuscular Hemoglobin 27.2 pg (26-34); Mean Corpuscular Volume 97.1 fl (80-100); Mean Platelet Volume 10.3 fl (7.4-10.4); Monocytes Absolute Auto 0.6 K/mm3 (0.1-0.6); Monocytes Percent Auto 8.7 % (2.6-8.5); Neutrophils Absolute Auto 4.4 K/mm3 (1.3-6.7); Neutrophils Percent Auto 60.4 % (45.5-73.1); Nucleated Red Blood Cells Perc 0.3 % (0.0-0.2); Platelet Count Result 306 k/mm3 (150-375); Red Blood Count 3.12 M/mm3 (4.2-5.4); Red Cell Distribution Width 16.7 % (11.5-14.5); White Blood Count 7.4 K/mm3 (4.5-10.0)
[2023-01-08] MEDS: ENOXAPARIN 30 MG/0.3 ML SYRINGE SUB-Q (09:17)
--- NOTE | 2023-01-08 09:50 | PM.PNORT ---
Progress Note: A&P Assessment and Plan (1) Intertrochanteric fracture of left hip: Qualifiers: Encounter type: initial encounter Fracture type: closed Fracture alignment: displaced Qualified Code(s): S72.142A - Displaced intertrochanteric fracture of left femur, initial encounter for closed fracture Code(s): S72.142A - Displaced intertrochanteric fracture of left femur, initial encounter for closed fracture Status: Acute Assessment and Plan: POD #3 ORIF with long cephalomedullary nail. Continuing to follow. Patient doing well today. Pain with ambulation. She has been working on PT/OT. Plan to discharge to SNF or rehab once cleared medically. Tylenol controls pain. We discussed the importance of trying to get up and walk with physical therapy. Ortho instructions: D/C to SNF/rehab Follow up in office in 4-6 weeks with xrays. Wound Care: Remove cierra at 2 weeks post op. Daily dressing changes until healed. PT: Weight bearing as tolerated with a walker. DVT prophylaxis: continue Lovenox for 30 days total Pain medication: Tylenol. Subjective Subjective Date/Time Seen: 01/08/23 09:50 Interval history: Patient resting comfortably in bed. She states she has been up with formal physical therapy but she has pain when doing so. She is eager to get back home. Review of Systems Review of Systems: All systems reviewed & are unremarkable except as noted in HPI and below Exam Narrative: Obese 77 y/o female. Alert and orriented x3. Resting comfortably in bed. Dressing dry and intact with no drainage. Moderate swelling.? No edema. No ecchymosis. No erythema. No hematoma. Range of motion limited due to pain. Calf nontender. Thigh nontender. No varicosities. Distal pulses palpable. Wiggles toes. Objective Data Vital Signs Vital Signs: Vital Signs - 24 hr 01/07/23 10:13 01/07/23 12:00 01/07/23 14:06 Temperature 98.1 F 97.6 F Pulse Rate 91 92 92 Respiratory Rate 18 16 Blood Pressure 150/60 H 116/47 L Pulse Oximetry 100 94 Oxygen Delivery 01/07/23 16:00 01/07/23 20:16 01/07/23 20:47 Temperature 97.1 F L Pulse Rate 89 89 Respiratory Rate 16 Blood Pressure 129/43 L Pulse Oximetry 94 Oxygen Delivery Room Air 01/07/23 20:00 01/08/23 00:00 01/08/23 00:15 Temperature 97.4 F L Pulse Rate 89 85 81 Respiratory Rate 16 Blood Pressure 123/51 L Pulse Oximetry 93 Oxygen Delivery 01/08/23 04:00 01/08/23 06:00 01/08/23 08:00 Temperature 97.6 F Pulse Rate 87 81 Respiratory Rate 16 Blood Pressure 138/58 L Pulse Oximetry 93 93 Oxygen Delivery Room Air 01/08/23 08:00 Temperature Pulse Rate 80 Respiratory Rate Blood Pressure Pulse Oximetry Oxygen Delivery Intake/Output Intake/Output: Intake & Output 01/05/23 01/06/23 01/07/23 01/08/23 23:59 23:59 23:59 23:59 Intake Total 940 413 7415 1780 Output Total 1275 550 0 600 Balance -208 172 5434 1180 Meds/Results Medications: Active Medications Generic Name Dose Route Start Last Admin Trade Name Freq PRN Reason Stop Dose Admin Acetaminophen 650 mg 01/01/23 20:44 01/04/23 09:14 Acetaminophen 325 Mg Tablet PO 650 mg Q4H PRN Administration Mild Pain (1-3) or Fever Acetaminophen 1,000 mg 01/05/23 18:00 01/08/23 05:52 Acetaminophen 500 Mg Tablet PO 1,000 mg Q6H JACKY Administration Hydrocodone Bitart/Acetaminophen 1 tab 01/02/23 08:58 01/07/23 09:54 Hydrocodone/Acetaminophen (*Crx) 7.5-325 Mg Tablet PO 1 tab Q4H PRN Administration Pain Rated 7-10 Al Hydrox/Mg Hydrox/Simethicone 30 ml 01/01/23 20:44 Mag Hydrox/Al Hydrox/Simeth 30 Ml Udc PO QID PRN Dyspepsia Alprazolam 0.25 mg 01/01/23 20:44 01/05/23 18:02 Alprazolam (*Crx) 0.25 Mg Tablet PO 0.25 mg TID PRN Administration Anxiety Amlodipine Besylate 10 mg 01/02/23 09:00 01/08/23 08:38 Amlodipine Besylate 5 Mg Tablet PO 10 mg QA
--- NOTE | 2023-01-08 10:48 | PM.PNNEP ---
Progress Note: A&P Assessment and Plan (1) Chronic kidney disease, stage 4 (severe): Code(s): N18.4 - Chronic kidney disease, stage 4 (severe) Status: Chronic Assessment and Plan: stable baseline creatinine runs ~ 2.3 - 2.7mg/dl in the last year or so secondary to diabetes, hypertension vascular disease and age-related change (2) Intertrochanteric fracture of left hip: Qualifiers: Encounter type: initial encounter Fracture type: closed Fracture alignment: displaced Qualified Code(s): S72.142A - Displaced intertrochanteric fracture of left femur, initial encounter for closed fracture Code(s): S72.142A - Displaced intertrochanteric fracture of left femur, initial encounter for closed fracture Status: Acute Assessment and Plan: as noted by admission imaging Orthopedic recommendations following s/p ORIF with long cephalomedullary nail (on 01/05/23) PT/OT pain control (3) Hyperkalemia: Code(s): E87.5 - Hyperkalemia Status: Acute Assessment and Plan: resolved etiology not clear s/p medical management follow trend of repeat K+ levels (4) UTI (urinary tract infection): Code(s): N39.0 - Urinary tract infection, site not specified Status: Acute Assessment and Plan: urine culture with E.coli on antibiotic therapy (5) Altered mental status: Code(s): R41.82 - Altered mental status, unspecified Status: Acute Assessment and Plan: significant improvement noted suspect secondary to UTI follow mentation (6) Hypertension, essential: Code(s): I10 - Essential (primary) hypertension Status: Chronic Assessment and Plan: reasonable control may need to use PRN IV medications follow trend of hemodynamics (7) Anemia: Code(s): D64.9 - Anemia, unspecified Status: Chronic Assessment and Plan: partly due to CKD follow trend of H/H Epogen while hospitalized (8) Type 2 diabetes mellitus with hyperglycemia: Code(s): E11.65 - Type 2 diabetes mellitus with hyperglycemia Status: Chronic Assessment and Plan: follow accu-cheks glycemic control per hospitalists Will continue to follow. Subjective Date/time seen: 01/08/23 10:48 Interval history: Follow-up for chronic kidney disease. Mentation continues to improve if not back to baseline; pain control is reasonable but states she still has significant pain with any movement; eating and drinking okay; no other issues/events overnight or earlier this morning. Exam Narrative: General: elderly but WD/WN female in NAD Heart: normal S1 and S2; no rub Lungs: clear to auscultation Abdomen: soft, nontender, nondistended, positive bowel sounds Extremities: no cyanosis or clubbing; no edema Skin: no rash Objective Data Vital Signs Vital Signs: Vital Signs Temp Pulse Resp BP Pulse Ox O2 Del Method 01/08/23 10:25 97.8 F 82 18 145/66 H 96 01/08/23 08:00 80 01/08/23 08:00 93 Room Air 01/08/23 06:00 97.6 F 81 16 138/58 L 93 01/08/23 04:00 87 01/08/23 00:15 97.4 F L 81 16 123/51 L 93 01/08/23 00:00 85 01/07/23 20:00 89 01/07/23 20:47 Room Air 01/07/23 20:16 97.1 F L 89 16 129/43 L 94 Intake/Output Intake/Output: Intake & Output 01/05/23 01/06/23 01/07/23 01/08/23 23:59 23:59 23:59 23:59 Intake Total 119 490 8315 2070 Output Total 1275 550 0 1450 Balance -973 760 3565 620 Meds/Results Medications: Active Medications Generic Name Dose Route Start Last Admin Trade Name Freq PRN Reason Stop Dose Admin Acetaminophen 650 mg 01/01/23 20:44 01/04/23 09:14 Acetaminophen 325 Mg Tablet PO 650 mg Q4H PRN Administration Mild Pain (1-3) or Fever Acetaminophen 1,000 mg 01/05/23 18:00 01/08/23 11:52 Acetaminophen 500 Mg Tablet PO 1,000 mg Q6H JACKY Administration Hy
--- NOTE | 2023-01-08 10:48 | P.PNNP_ITS ---
Progress Note: A&P Assessment and Plan (1) Chronic kidney disease, stage 4 (severe): Code(s): N18.4 - Chronic kidney disease, stage 4 (severe) Status: Chronic Assessment and Plan: * stable * baseline creatinine runs ~ 2.3 - 2.7mg/dl in the last year or so * secondary to diabetes, hypertension vascular disease and age-related change (2) Intertrochanteric fracture of left hip: Qualifiers: Encounter type: initial encounter Fracture type: closed Fracture alignment: displaced Qualified Code(s): S72.142A - Displaced intertrochanteric fracture of left femur, initial encounter for closed fracture Code(s): S72.142A - Displaced intertrochanteric fracture of left femur, initial encounter for closed fracture Status: Acute Assessment and Plan: * as noted by admission imaging * Orthopedic recommendations following * s/p ORIF with long cephalomedullary nail (on 01/05/23) * PT/OT * pain control (3) Hyperkalemia: Code(s): E87.5 - Hyperkalemia Status: Acute Assessment and Plan: * resolved * etiology not clear * s/p medical management * follow trend of repeat K+ levels (4) UTI (urinary tract infection): Code(s): N39.0 - Urinary tract infection, site not specified Status: Acute Assessment and Plan: * urine culture with E.coli * on antibiotic therapy (5) Altered mental status: Code(s): R41.82 - Altered mental status, unspecified Status: Acute Assessment and Plan: * significant improvement noted * suspect secondary to UTI * follow mentation (6) Hypertension, essential: Code(s): I10 - Essential (primary) hypertension Status: Chronic Assessment and Plan: * reasonable control * may need to use PRN IV medications * follow trend of hemodynamics (7) Anemia: Code(s): D64.9 - Anemia, unspecified Status: Chronic Assessment and Plan: * partly due to CKD * follow trend of H/H * Epogen while hospitalized (8) Type 2 diabetes mellitus with hyperglycemia: Code(s): E11.65 - Type 2 diabetes mellitus with hyperglycemia Status: Chronic Assessment and Plan: * follow accu-cheks * glycemic control per hospitalists Will continue to follow. Subjective Date/time seen: 01/08/23 10:48 Interval history: Follow-up for chronic kidney disease. Mentation continues to improve if not back to baseline; pain control is reasonable but states she still has significant pain with any movement; eating and drinking okay; no other issues/events overnight or earlier this morning. Exam Narrative: General: elderly but WD/WN female in NAD Heart: normal S1 and S2; no rub Lungs: clear to auscultation Abdomen: soft, nontender, nondistended, positive bowel sounds Extremities: no cyanosis or clubbing; no edema Skin: no rash Objective Data Vital Signs Vital Signs: Vital Signs Temp Pulse Resp BP Pulse Ox O2 Del Method 01/08/23 10:25 97.8 F 82 18 145/66 H 96 01/08/23 08:00 80 01/08/23 08:00 93 Room Air 01/08/23 06:00 97.6 F 81 16 138/58 L 93 01/08/23 04:00 87 01/08/23 00:15 97.4 F L 81 16 123/51 L 93 01/08/23 00:00 85 01/07/23 20:00 89 01/07/23 20:47 Room Air
[2023-01-08 12:14] LABS: Glucose Point of Care 190 mg/dl (65-105)
--- NOTE | 2023-01-08 12:41 | PM.IMPN ---
Progress Note: A&P Assessment and Plan (1) Closed left hip fracture: Code(s): S72.002A - Fracture of unspecified part of neck of left femur, initial encounter for closed fracture Status: Ruled-out (2) Hypertriglyceridemia: Code(s): E78.1 - Pure hyperglyceridemia Status: Acute (3) Type 2 diabetes mellitus with chronic kidney disease, without long-term current use of insulin: Code(s): E11.22 - Type 2 diabetes mellitus with diabetic chronic kidney disease Status: Acute (4) PAD (peripheral artery disease): Code(s): I73.9 - Peripheral vascular disease, unspecified Status: Acute (5) BMI 37.0-37.9, adult: Code(s): Z68.37 - Body mass index [BMI] 37.0-37.9, adult Status: Acute (6) Menopausal state: Code(s): N95.1 - Menopausal and female climacteric states Status: Acute (7) Type 2 diabetes mellitus with hyperglycemia: Code(s): E11.65 - Type 2 diabetes mellitus with hyperglycemia Status: Chronic (8) Hypertension, essential: Code(s): I10 - Essential (primary) hypertension Status: Chronic (9) Hyperlipidemia, unspecified: Qualifiers: Hyperlipidemia type: unspecified Qualified Code(s): E78.5 - Hyperlipidemia, unspecified Code(s): E78.5 - Hyperlipidemia, unspecified Status: Chronic (10) Diabetic peripheral neuropathy: Code(s): E11.42 - Type 2 diabetes mellitus with diabetic polyneuropathy Status: Chronic (11) Coronary artery disease involving [place] heart without angina pectoris: Code(s): I25.10 - Atherosclerotic heart disease of [place] coronary artery without angina pectoris Status: Acute (12) Chronic kidney disease, stage 4 (severe): Code(s): N18.4 - Chronic kidney disease, stage 4 (severe) Status: Chronic (13) Anemia: Code(s): D64.9 - Anemia, unspecified Status: Chronic (14) CHF (congestive heart failure), NYHA class I: Code(s): I50.9 - Heart failure, unspecified Status: Chronic (15) Pulmonary HTN: Code(s): I27.20 - Pulmonary hypertension, unspecified Status: Acute (16) H/O heart artery stent: Code(s): Z95.5 - Presence of coronary angioplasty implant and graft Status: Acute (17) Secondary hyperparathyroidism, not elsewhere classified: Code(s): E21.1 - Secondary hyperparathyroidism, not elsewhere classified Status: Acute (18) Acute on chronic renal failure: Code(s): N17.9 - Acute kidney failure, unspecified; N18.9 - Chronic kidney disease, unspecified Status: Acute (19) Hyperkalemia: Code(s): E87.5 - Hyperkalemia Status: Acute Plan Left hip fracture Patient fell down at home and had pain in her left hip hence EMS was called for evaluation XR:Comminuted, displaced left femoral intertrochanteric fracture with varus angulation. sp ORIF left hip with cephalomedullary nail (gamma nail) NATE on CKD IV, hyperkalemia Pt treated for UTI creat is 2.6 On IV fluid Consulted nephrology Acute encephalopathy much improved after surgery Likely secondary to pain medication, electrolyte disorder and dehydration, and UTI UTI UA shows pyuria, microscopic hematuria, urine is cloudy Start ceftriaxone IV Urine culture E coli. Sensitive to ceftriaxone. Finish course today Hypertension urgency resolved BP is stable Start hydralazine 10 mg IV push Q 4 as needed with parameters Anxiety Xanax 0.25 mg p.o. t.i.d. p.r.n. given for anxiety History of CAD Monitor cardiac enzymes x3 given her history of CAD Patient denies chest pain Serial troponin x3 negative Chronic anemia Hemoglobin lower than baseline, possible due to dilution Follow CBC, stool guaiac, iron panel Continue with home meds. PCp follow up Disposition: Needs rehabilitation. Care coordination on board. Lovenox for 30 days total. Follow-up with orthopedics Subjective Date/time seen: 01/08/23 12:41
--- NOTE | 2023-01-08 14:19 | PCPTNOTE ---
Pt declined physical therapy- I've done all I'm going to do today Will cont per POC
[2023-01-08 17:09] LABS: Glucose Point of Care 174 mg/dl (65-105)
[2023-01-08] MEDS: SIMVASTATIN 20 MG TABLET 40 MG PO (22:04)
[2023-01-08] MEDS: INSULIN GLARGINE (*BKC) 100 UNITS/ML 14 UNITS SUB-Q (22:04)
[2023-01-08] MEDS: EPOETIN ALFA-EPBX 20,000 UNITS/ML VIAL 20000 UNITS SUB-Q (22:05)
[2023-01-08 22:17] LABS: Glucose Point of Care 221 mg/dl (65-105)
[2023-01-09] VITALS (10 sets, daily range): BP systolic 136–155; BP diastolic 55–59; PULSE 83–90; RESP 16–18; TEMP 36.2–36.7; O2SAT 96–98; BMI 10.0
[2023-01-09] MEDS: ACETAMINOPHEN 500 MG TABLET 1000 MG PO ×3 (05:12→17:25)
[2023-01-09 05:56] LABS: Basophils Absolute Auto 0.1 K/mm3 (0.0-0.1); Basophils Percent Auto 0.7 % (0.2-1.2); Eosinophils Absolute Auto 0.4 K/mm3 (0-0.3); Eosinophils Percent Auto 4.9 % (0-4.4); Hematocrit 26.9 % (37.0-47.0); Hemoglobin 7.8 g/dL (12.0-15.0); Immature Granulocyte Absolute 0.19 K/mm3 (0.00-0.031); Immature Granulocyte Percent A 2.2 % (0-0.5); Lymphocytes Absolute Auto 1.74 K/mm3 (0.9-3.2); Lymphocytes Percent Auto 20.2 % (18.3-44.2); Mean Corpuscular Hemoglobin 27.3 pg (26-34); Mean Corpuscular Volume 94.1 fl (80-100); Mean Platelet Volume 9.5 fl (7.4-10.4); Monocytes Absolute Auto 0.8 K/mm3 (0.1-0.6); Monocytes Percent Auto 9.3 % (2.6-8.5); Neutrophils Absolute Auto 5.4 K/mm3 (1.3-6.7); Neutrophils Percent Auto 62.7 % (45.5-73.1); Nucleated Red Blood Cells Absolute Auto 0.1 K/mm3 (0.0-0.012); Nucleated Red Blood Cells Perc 1.2 % (0.0-0.2); Platelet Count Result 316 k/mm3 (150-375); Red Blood Count 2.86 M/mm3 (4.2-5.4); Red Cell Distribution Width 16.5 % (11.5-14.5); White Blood Count 8.6 K/mm3 (4.5-10.0)
[2023-01-09 06:09] LABS: Alanine Aminotransferase 32 U/L (6-35); Alkaline Phosphatase 79 U/L (38-126); Anion Gap 3 mmol/L (8-16); Aspartate Amino Transferase 24 U/L (14-36); Bilirubin,Total 0.4 mg/dL (0.2-1.3); Blood Urea Nitrogen 74 mg/dL (7-17); Calcium 7.9 mg/dL (8.4-10.2); Carbon Dioxide 26 mmol/L (22-30); Chloride 108 mmol/L (98-107); Estimated CRCL calculation 20 ml/min; Estimated Glomerular Filt Rate 20; Glucose 134 mg/dL (65-110); Magnesium 2.4 mg/dL (1.6-2.3); Sodium 137 mmol/L (137-145)
[2023-01-09 06:26] LABS: Anisocytosis 1+ (NORMAL); Hypochromasia 2+ (NORMAL); Platelet Estimate Adequate (Adequate); Schistocytes None Seen (NORMAL)
[2023-01-09 08:07] LABS: Glucose Point of Care 136 mg/dl (65-105)
[2023-01-09] MEDS: amLODIPine BESYLATE 5 MG TABLET 10 MG PO (09:08)
[2023-01-09] MEDS: ASPIRIN 81 MG ENTERIC TABLET PO (09:08)
[2023-01-09] MEDS: CHOLECALCIFEROL 1,000 UNITS TABLET 5000 UNITS PO (09:08)
[2023-01-09] MEDS: SENNA/DOCUSATE SODIUM TABLET 2 TAB PO ×2 (09:09→17:24)
[2023-01-09] MEDS: MULTIVITAMINS THERAPEUTIC TAB (*BKC) 1 TABLET PO (09:09)
[2023-01-09] MEDS: GABAPENTIN 300 MG CAPSULE PO ×3 (09:09→17:25)
[2023-01-09] MEDS: CYANOCOBALAMIN 1,000 MCG TABLET 1000 MCG PO (09:09)
[2023-01-09] MEDS: FAMOTIDINE 10 MG TABLET PO (09:09)
[2023-01-09] MEDS: OMEGA 3 POLYUNSAT FATTY ACIDS 1 GM CAP 2 GM PO ×2 (09:10→17:25)
[2023-01-09] MEDS: polyethylene glycoL 3350 17 GM POWD.PACK PO (09:10)
[2023-01-09] MEDS: ENOXAPARIN 30 MG/0.3 ML SYRINGE SUB-Q (09:26)
[2023-01-09] MEDS: EPOETIN ALFA-EPBX 10,000 UNITS/ML VIAL 10000 UNITS SUB-Q (09:26)
[2023-01-09] MEDS: ACETAMINOPHEN 325 MG TABLET 650 MG PO (09:41)
[2023-01-09] MEDS: CYCLOBENZAPRINE HCL 10 MG TABLET PO (09:41)
[2023-01-09 11:56] LABS: Glucose Point of Care 166 mg/dl (65-105)
--- NOTE | 2023-01-09 12:11 | PM.DS ---
DS: Admitting Diagnosis Discharge Date 01/09/2023 Admitting Diagnosis Fall and left hip fracture DS: Discharge Diagnosis Discharge Diagnosis (1) Closed left hip fracture: Code(s): S72.002A - Fracture of unspecified part of neck of left femur, initial encounter for closed fracture Status: Ruled-out (2) Hypertriglyceridemia: Code(s): E78.1 - Pure hyperglyceridemia Status: Acute (3) Type 2 diabetes mellitus with chronic kidney disease, without long-term current use of insulin: Code(s): E11.22 - Type 2 diabetes mellitus with diabetic chronic kidney disease Status: Acute (4) PAD (peripheral artery disease): Code(s): I73.9 - Peripheral vascular disease, unspecified Status: Acute (5) BMI 37.0-37.9, adult: Code(s): Z68.37 - Body mass index [BMI] 37.0-37.9, adult Status: Acute (6) Menopausal state: Code(s): N95.1 - Menopausal and female climacteric states Status: Acute (7) Type 2 diabetes mellitus with hyperglycemia: Code(s): E11.65 - Type 2 diabetes mellitus with hyperglycemia Status: Chronic (8) Hypertension, essential: Code(s): I10 - Essential (primary) hypertension Status: Chronic (9) Hyperlipidemia, unspecified: Qualifiers: Hyperlipidemia type: unspecified Qualified Code(s): E78.5 - Hyperlipidemia, unspecified Code(s): E78.5 - Hyperlipidemia, unspecified Status: Chronic (10) Diabetic peripheral neuropathy: Code(s): E11.42 - Type 2 diabetes mellitus with diabetic polyneuropathy Status: Chronic (11) Coronary artery disease involving [place] heart without angina pectoris: Code(s): I25.10 - Atherosclerotic heart disease of [place] coronary artery without angina pectoris Status: Acute (12) Chronic kidney disease, stage 4 (severe): Code(s): N18.4 - Chronic kidney disease, stage 4 (severe) Status: Chronic (13) Anemia: Code(s): D64.9 - Anemia, unspecified Status: Chronic (14) CHF (congestive heart failure), NYHA class I: Code(s): I50.9 - Heart failure, unspecified Status: Chronic (15) Pulmonary HTN: Code(s): I27.20 - Pulmonary hypertension, unspecified Status: Acute (16) H/O heart artery stent: Code(s): Z95.5 - Presence of coronary angioplasty implant and graft Status: Acute (17) Secondary hyperparathyroidism, not elsewhere classified: Code(s): E21.1 - Secondary hyperparathyroidism, not elsewhere classified Status: Acute (18) Acute on chronic renal failure: Code(s): N17.9 - Acute kidney failure, unspecified; N18.9 - Chronic kidney disease, unspecified Status: Acute (19) Hyperkalemia: Code(s): E87.5 - Hyperkalemia Status: Acute DS: Summary Hospital Course Hospital Course: # left hip fracture Patient fell down at home and had pain in her left hip hence EMS was called for evaluation XR:Comminuted, displaced left femoral intertrochanteric fracture with varus angulation. sp ORIF left hip with cephalomedullary nail (gamma nail) on 01/05/2023 # Senia on CKD IV, hyperkalemia needing Lokelma. Creatinine stable by the time of discharge Pt treated for UTI Consulted nephrology # acute encephalopathy much improved after surgery? Likely secondary to pain medication, electrolyte disorder and dehydration, and UTI # uTI UA shows pyuria, microscopic hematuria, urine is cloudy Start ceftriaxone IV Urine culture E coli.? Sensitive to ceftriaxone.? Finished antibiotic course # hypertension urgency resolved BP is stable Start hydralazine 10 mg IV push Q 4 as needed with parameters. Started on amlodipine. # anxiety Xanax 0.25 mg p.o. t.i.d. p.r.n. given for anxiety # history of CAD Monitor cardiac enzymes x3 given her history of CAD Patient denies chest pain Serial troponin x3 negative # chronic anemia Hemoglobin lower than baseline, possible due to dilution and postoperative
[2023-01-09 12:21] LABS: Hematocrit 28.8 % (37.0-47.0); Hemoglobin 8.3 g/dL (12.0-15.0)
--- NOTE | 2023-01-09 14:09 | P.PNNP_ITS ---
Progress Note: A&P Assessment and Plan (1) Chronic kidney disease, stage 4 (severe): Code(s): N18.4 - Chronic kidney disease, stage 4 (severe) Status: Chronic Assessment and Plan: * stable numbers. * baseline creatinine runs ~ 2.3 - 2.7mg/dl in the last year or so * secondary to diabetes, hypertension vascular disease and age-related change * Continue to follow the creatinine while at rehab. They can call us if there is a change. (2) Intertrochanteric fracture of left hip: Qualifiers: Encounter type: initial encounter Fracture type: closed Fracture alignment: displaced Qualified Code(s): S72.142A - Displaced intertrochanteric fracture of left femur, initial encounter for closed fracture Code(s): S72.142A - Displaced intertrochanteric fracture of left femur, initial encounter for closed fracture Status: Acute Assessment and Plan: * as noted by admission imaging * Orthopedic recommendations following * s/p ORIF with long cephalomedullary nail (on 01/05/23) * PT/OT * pain control * Encouraged to eat well to help healing (3) Hyperkalemia: Code(s): E87.5 - Hyperkalemia Status: Acute Assessment and Plan: * resolved * Potassium 4.0 today. (4) UTI (urinary tract infection): Code(s): N39.0 - Urinary tract infection, site not specified Status: Acute Assessment and Plan: * urine culture with E.coli * on ceftriaxone (5) Altered mental status: Code(s): R41.82 - Altered mental status, unspecified Status: Acute Assessment and Plan: * significant improvement noted * She looks baseline to me. (6) Hypertension, essential: Code(s): I10 - Essential (primary) hypertension Status: Chronic Assessment and Plan: * Systolic 120-142. (7) Anemia: Code(s): D64.9 - Anemia, unspecified Status: Chronic Assessment and Plan: * partly due to CKD * Also loss from surgery playing a role. * Hemoglobin a little better today than it was yesterday. (8) Type 2 diabetes mellitus with hyperglycemia: Code(s): E11.65 - Type 2 diabetes mellitus with hyperglycemia Status: Chronic Assessment and Plan: * follow accu-cheks * glycemic control per hospitalists Subjective Date/time seen: 01/09/23 14:09 Interval history: Patient feels about the same today. She still has left leg pain. She is being discharged to rehab today. Exam Narrative: General: elderly but WD/WN female in NAD Heart: normal S1 and S2; no rub or gallop Lungs: clear to auscultation Abdomen: soft, nontender, nondistended, positive bowel sounds Extremities: no cyanosis or clubbing; no edema. She has bandages on the operative sites on left thigh and hip. Skin: no rash or subQ nodules Objective Data Vital Signs Vital Signs: Vital Signs - 24 hr 01/08/23 16:00 01/08/23 18:39 01/08/23 22:37 Temperature 97.8 F 97.9 F Pulse Rate 90 86 88 Respiratory Rate 18 18 Blood Pressure 127/62 124/50 L Pulse Oximetry 95 96 Oxygen Delivery 01/08/23 20:00 01/08/23 21:20 01/09/23 00:00 Temperature Pulse Rate 87 83 Respiratory Rate Blood Pressure Pulse Oximetry Oxygen Delivery Room Air 1
--- NOTE | 2023-01-09 14:09 | PM.PNNEP ---
Progress Note: A&P Assessment and Plan (1) Chronic kidney disease, stage 4 (severe): Code(s): N18.4 - Chronic kidney disease, stage 4 (severe) Status: Chronic Assessment and Plan: stable numbers. baseline creatinine runs ~ 2.3 - 2.7mg/dl in the last year or so secondary to diabetes, hypertension vascular disease and age-related change Continue to follow the creatinine while at rehab. They can call us if there is a change. (2) Intertrochanteric fracture of left hip: Qualifiers: Encounter type: initial encounter Fracture type: closed Fracture alignment: displaced Qualified Code(s): S72.142A - Displaced intertrochanteric fracture of left femur, initial encounter for closed fracture Code(s): S72.142A - Displaced intertrochanteric fracture of left femur, initial encounter for closed fracture Status: Acute Assessment and Plan: as noted by admission imaging Orthopedic recommendations following s/p ORIF with long cephalomedullary nail (on 01/05/23) PT/OT pain control Encouraged to eat well to help healing (3) Hyperkalemia: Code(s): E87.5 - Hyperkalemia Status: Acute Assessment and Plan: resolved Potassium 4.0 today. (4) UTI (urinary tract infection): Code(s): N39.0 - Urinary tract infection, site not specified Status: Acute Assessment and Plan: urine culture with E.coli on ceftriaxone (5) Altered mental status: Code(s): R41.82 - Altered mental status, unspecified Status: Acute Assessment and Plan: significant improvement noted She looks baseline to me. (6) Hypertension, essential: Code(s): I10 - Essential (primary) hypertension Status: Chronic Assessment and Plan: Systolic 120-142. (7) Anemia: Code(s): D64.9 - Anemia, unspecified Status: Chronic Assessment and Plan: partly due to CKD Also loss from surgery playing a role. Hemoglobin a little better today than it was yesterday. (8) Type 2 diabetes mellitus with hyperglycemia: Code(s): E11.65 - Type 2 diabetes mellitus with hyperglycemia Status: Chronic Assessment and Plan: follow accu-cheks glycemic control per hospitalists Subjective Date/time seen: 01/09/23 14:09 Interval history: Patient feels about the same today. She still has left leg pain. She is being discharged to rehab today. Exam Narrative: General: elderly but WD/WN female in NAD Heart: normal S1 and S2; no rub or gallop Lungs: clear to auscultation Abdomen: soft, nontender, nondistended, positive bowel sounds Extremities: no cyanosis or clubbing; no edema. She has bandages on the operative sites on left thigh and hip. Skin: no rash or subQ nodules Objective Data Vital Signs Vital Signs: Vital Signs - 24 hr 01/08/23 16:00 01/08/23 18:39 01/08/23 22:37 Temperature 97.8 F 97.9 F Pulse Rate 90 86 88 Respiratory Rate 18 18 Blood Pressure 127/62 124/50 L Pulse Oximetry 95 96 Oxygen Delivery 01/08/23 20:00 01/08/23 21:20 01/09/23 00:00 Temperature Pulse Rate 87 83 Respiratory Rate Blood Pressure Pulse Oximetry Oxygen Delivery Room Air 01/09/23 04:00 01/09/23 02:00 01/09/23 06:00 Temperature 97.8 F 97.1 F L Pulse Rate 88 88 90 Respiratory Rate 18 18 Blood Pressure 136/55 L 142/57 H Pulse Oximetry 97 96 Oxygen Delivery 01/09/23 09:06 01/09/23 08:00 01/09/23 09:10 Temperature 97.6 F Pulse Rate 85 90 Respiratory Rate 16 Blood Pressure 139/56 L Pulse Oximetry 98 Oxygen Delivery Room Air Intake/Output Intake/Output: Intake & Output 01/06/23 01/07/23 01/08/23 01/09/23 23:59 23:59 23:59 23:59 Intake Total 840 2550 2660 940 Output Total 550 0 1650 900 Balance 290 2550 1010 40 Meds/Results Medications: Active Medications Generic Name Dose Route Start Last Admin Trade Name Freq PRN Reason
[2023-01-09 17:09] LABS: Glucose Point of Care 199 mg/dl (65-105)
--- NOTE | 2023-01-09 19:45 | PC.NURSE ---
Pt left via EMS to [facility]. IV and tele removed. Belongings sent with pt. Report given to EMS, all questions answered.
== END 2023-01-09 19:44 | DRG 480 ==
LOC: ANHED 15:07 → ANH2MED 18:51
PROVIDERS: Family Medicine; Internal Medicine Nephrology; Orthopaedic Surgery; Physician Assistant Surgical; Admitting Provider Hospitalist; Emergency Provider Emergency Medicine; PCP Family Medicine; Visit Provider Internal Medicine
PROC: (CPT 27245; principal; 2023-01-03 07:30)
PROC: 0QS736Z Reposition Left Upper Femur with Intramedullary Internal Fixation Device, Percutaneous Approach (ICD-10-PCS; CPT 27245; principal; 2023-01-05 15:00)
DX: S72.142A Displaced intertrochanteric fracture of left femur, initial encounter for closed fracture (principal); G92.8 Other toxic encephalopathy; I50.23 Acute on chronic systolic (congestive) heart failure; I13.0 Hypertensive heart and chronic kidney disease with heart failure and stage 1 through stage 4 chronic kidney disease, or unspecified chronic kidney disease; N17.9 Acute kidney failure, unspecified; N39.0 Urinary tract infection, site not specified; N18.4 Chronic kidney disease, stage 4 (severe); G93.49 Other encephalopathy; T40.695A Adverse effect of other narcotics, initial encounter; I16.0 Hypertensive urgency; W18.39XA Other fall on same level, initial encounter; B96.20 Unspecified Escherichia coli [E. coli] as the cause of diseases classified elsewhere; E11.22 Type 2 diabetes mellitus with diabetic chronic kidney disease; I73.9 Peripheral vascular disease, unspecified; E78.5 Hyperlipidemia, unspecified; E21.1 Secondary hyperparathyroidism, not elsewhere classified; D63.1 Anemia in chronic kidney disease; E11.42 Type 2 diabetes mellitus with diabetic polyneuropathy; E11.65 Type 2 diabetes mellitus with hyperglycemia; F41.9 Anxiety disorder, unspecified; I25.10 Atherosclerotic heart disease of native coronary artery without angina pectoris; E87.5 Hyperkalemia; Z68.37 Body mass index [BMI] 37.0-37.9, adult; Z95.5 Presence of coronary angioplasty implant and graft; Z79.82 Long term (current) use of aspirin; Z90.49 Acquired absence of other specified parts of digestive tract
CPT/HCPCS: 36415; 70450; 71045; 73502; 73552; 80048; 80053; 80069; 81001; 82550; 82728; 82948; 83540; 83550; 83735; 84100; 84484; 85014; 85018; 85025; 85610; 85730; 86850; 86900; 86901; 87077; 87086; 87088; 87186; 93005; 94640; 96361; 96374; 97110; 97161; 97166; 97530; 97535; 99199; 99285; A9270; C1713; C1769; J0360; J0612; J0696; J1170; J1650; J1815; J2270; J2405; J2704; J3010; J7030; J7040; J7042; Q5105; Q5106

== ENCOUNTER 2023-02-04 14:30 | Outpatient (NON) | payer OTHER, SELFPAY ==
[2023-02-04 15:14] LABS: Appearance Urine Cloudy (Clear); Bacteria Urine 4+ /hpf; Bilirubin Urine Negative (Negative); Blood Urine Trace (Negative); Color Urine Yellow (Yellow); Glucose Urine UA Negative (Negative); Ketones Urine Negative (Negative); Leukocyte Esterase Ur Trace LEU/UL (Negative); Nitrate Urine Positive (Negative); Protein Urine 1+ mg/dL (Negative); RBC Urine 0-2 /hpf (0-2); Specific Grav Ur 1.018 (1.001-1.035); Squamous Epithelial Cell Urine Occasional /hpf (Few); Urobilinogen Urine 0.2 mg/dL (<2.0)
[2023-02-04 15:16] LABS: Add Urine Microscopic? YES
== END 2023-02-04 14:31 | disposition home or self-care (01) ==
PROVIDERS: PCP Family Medicine; Visit Provider Family Medicine
DX: E11.22 Type 2 diabetes mellitus with diabetic chronic kidney disease (principal); I13.0 Hypertensive heart and chronic kidney disease with heart failure and stage 1 through stage 4 chronic kidney disease, or unspecified chronic kidney disease; R31.9 Hematuria, unspecified; N39.0 Urinary tract infection, site not specified; S72.142D Displaced intertrochanteric fracture of left femur, subsequent encounter for closed fracture with routine healing; X58.XXXD Exposure to other specified factors, subsequent encounter
CPT/HCPCS: 81001; 87077; 87086; 87186

== ENCOUNTER 2023-02-15 14:09 | Outpatient (NON) | payer OTHER, SELFPAY ==
[2023-02-15 14:28] LABS: Appearance Urine Clear (Clear); Bacteria Urine None Seen /hpf; Bilirubin Urine Negative (Negative); Blood Urine Negative (Negative); Color Urine Yellow (Yellow); Glucose Urine UA Negative (Negative); Ketones Urine Negative (Negative); Leukocyte Esterase Ur Negative LEU/UL (Negative); Nitrate Urine Negative (Negative); Protein Urine 1+ mg/dL (Negative); Specific Grav Ur 1.017 (1.001-1.035); Squamous Epithelial Cell Urine Occasional /hpf (Few); Urobilinogen Urine 0.2 mg/dL (<2.0); WBC Urine 0-5 /hpf
[2023-02-15 14:29] LABS: Add Urine Microscopic? YES
== END 2023-02-15 14:10 | disposition home or self-care (01) ==
PROVIDERS: PCP Family Medicine; Visit Provider Family Medicine
DX: N39.0 Urinary tract infection, site not specified (principal)
CPT/HCPCS: 81001

== ENCOUNTER 2023-03-11 12:13 | Emergency (ER) | payer OTHER, SELFPAY ==
--- NOTE | ~2023-03-11 | CT_ITS ---
EXAMINATION: CT brain wo con DATE: 03/11/2023 13:10 INDICATION: Confusion TECHNIQUE: Computed tomography (CT) of the head was performed without intravenous contrast. The dose- length product was 605.33 mGy-cm. Automated exposure control and iterative reconstruction technique w ere employed. COMPARISON: CT dated 01/01/2023 FINDINGS: No acute intracranial hemorrhage, infarction, mass or mass effect. No ventriculomegaly or m idline shift. Basilar cisterns are patent. No ventriculomegaly or midline shift. Paranasal sinuses an d mastoids are pneumatized. No depressed skull fractures. Midline sagittal images are unremarkable. IMPRESSION: 1. No acute intracranial abnormality. Reviewed, dictated and finalized at location L. ON CHOPPER
[2023-03-11 12:22] VITALS: BP 159/88; PULSE 99; RESP 20; TEMP 36.6; O2SAT 99
[2023-03-11 13:11] LABS: Appearance Urine Cloudy (Clear); Bacteria Urine 1+ /hpf; Bilirubin Urine Negative (Negative); Blood Urine Trace (Negative); Color Urine Yellow (Yellow); Glucose Urine UA Negative (Negative); Ketones Urine Negative (Negative); Leukocyte Esterase Ur Trace LEU/UL (Negative); Nitrate Urine Negative (Negative); Protein Urine 2+ mg/dL (Negative); Specific Grav Ur 1.018 (1.001-1.035); Squamous Epithelial Cell Urine Many /hpf (Few); Urobilinogen Urine 0.2 mg/dL (<2.0); pH Urine 5.5 (5.0-9.0)
[2023-03-11 13:14] LABS: Add Urine Microscopic? YES
[2023-03-11 13:20] LABS: Influenza A QL RT-PCR Negative (Negative); Influenza B QL RT-PCR Negative (Negative); SARS-CoV-2 RNA PCR Negative (Negative)
--- NOTE | 2023-03-11 15:10 | PC.NURSE ---
Pt spouse approached desk, states this is ridiculous , states he wants to leave and wants results. Discussed need to see provider if wanting results and medication to be provided for pt, pt and spouse verbalized understanding and left prior to seeing provider. Educated to seek emergency care if symptoms worsen.
== END 2023-03-11 15:50 | disposition left against medical advice (07) ==
LOC: ANHED 15:18
PROVIDERS: Emergency Provider Emergency Medicine; PCP Family Medicine
DX: R41.0 Disorientation, unspecified (principal); Z20.822 Contact with and (suspected) exposure to COVID-19
CPT/HCPCS: 70450; 81001; 87086; 87088; 87636; 99199

== ENCOUNTER 2023-03-19 13:57 | Outpatient (CLI) | payer OTHER, SELFPAY ==
--- NOTE | ~2023-03-19 | XR_ITS ---
EXAMINATION: XR hip LT 2V w AP pelvis INDICATION: Patient status post left hip surgery TECHNIQUE: AP view the pelvis and two views of the left hip are obtained COMPARISON: 01/01/2023 FINDINGS: There is antegrade intramedullary katya and interlocking intratrochanteric screw fixation of the previously described intertrochanteric fracture of the left femur. Minimal calcified callus is se en at the fracture site. Alignment is normal. There is mild osteoarthritis of the hips. Phleboliths a re noted in the pelvis. There is no evidence of hardware failure or loosening. Moderate to severe ost eoarthritis is noted in the left knee. IMPRESSION: 1. Patient status post internal fixation of the previously described intertrochanteric left femur fra cture with early healing seen at the fracture site. Reviewed, dictated and finalized at location B. NKEEPER IMPRESSION: 1. Patient status post internal fixation of the previously described intertroch anteric left femur fracture with early healing seen at the fracture site.
== END 2023-03-19 13:58 | disposition home or self-care (01) ==
LOC: ANHIMG 13:59
PROVIDERS: PCP Family Medicine; Visit Provider Orthopaedic Surgery
DX: Z47.89 Encounter for other orthopedic aftercare (principal)
CPT/HCPCS: 73502

== ENCOUNTER 2023-04-09 10:53 | Emergency (ER) | payer OTHER, SELFPAY ==
[2023-04-09 10:59] VITALS: BP 192/103; PULSE 91; RESP 18; TEMP 36.4; O2SAT 94
[2023-04-09 11:19] LABS: Basophils Percent Auto 0.5 % (0.2-1.2); Eosinophils Absolute Auto 0.1 K/mm3 (0-0.3); Eosinophils Percent Auto 0.9 % (0-4.4); Hematocrit 37.3 % (37.0-47.0); Hemoglobin 10.8 g/dL (12.0-15.0); Immature Granulocyte Absolute 0.03 K/mm3 (0.00-0.031); Immature Granulocyte Percent A 0.4 % (0-0.5); Lymphocytes Absolute Auto 1.89 K/mm3 (0.9-3.2); Lymphocytes Percent Auto 24.8 % (18.3-44.2); Mean Corpuscular Hemoglobin 26.5 pg (26-34); Mean Corpuscular Volume 91.4 fl (80-100); Mean Platelet Volume 9.2 fl (7.4-10.4); Monocytes Absolute Auto 0.6 K/mm3 (0.1-0.6); Neutrophils Percent Auto 65.4 % (45.5-73.1); Platelet Count Result 308 k/mm3 (150-375); Red Blood Count 4.08 M/mm3 (4.2-5.4); Red Cell Distribution Width 17.5 % (11.5-14.5); White Blood Count 7.6 K/mm3 (4.5-10.0)
[2023-04-09 11:31] LABS: Alanine Aminotransferase 18 U/L (6-35); Albumin Level 3.7 g/dL (3.5-5.1); Alkaline Phosphatase 120 U/L (38-126); Anion Gap 7 mmol/L (8-16); Aspartate Amino Transferase 22 U/L (14-36); Bilirubin,Total 0.4 mg/dL (0.2-1.3); Blood Urea Nitrogen 23 mg/dL (7-17); Calcium 9.2 mg/dL (8.4-10.2); Carbon Dioxide 27 mmol/L (22-30); Chloride 106 mmol/L (98-107); Estimated CRCL calculation 24 ml/min; Estimated Glomerular Filt Rate 26; Glucose 157 mg/dL (65-110); Lipase 71 U/L (23-300); Potassium 4.1 mmol/L (3.4-5.0); Sodium 140 mmol/L (137-145)
[2023-04-09 11:47] LABS: Appearance Urine Cloudy (Clear); Bacteria Urine None Seen /hpf; Bilirubin Urine Negative (Negative); Blood Urine 1+ (Negative); Budding Yeast Urine Present /hpf; Color Urine Yellow (Yellow); Glucose Urine UA Negative (Negative); Ketones Urine Trace mg/dL (Negative); Leukocyte Esterase Ur Trace LEU/UL (Negative); Need Manual Microscopic Reviewed; Nitrate Urine Negative (Negative); Protein Urine 2+ mg/dL (Negative); RBC Urine 0-2 /hpf (0-2); Specific Grav Ur 1.019 (1.001-1.035); Squamous Epithelial Cell Urine None seen /hpf (Few); Urobilinogen Urine 0.2 mg/dL (<2.0); WBC Urine 21-50 /hpf
[2023-04-09 11:48] LABS: Add Urine Microscopic? YES
--- NOTE | 2023-04-09 12:57 | ED.GENADULT ---
HPI - General Adult General Chief complaint: Abdominal Pain Stated complaint: urinary sx, dizzy/weak Time Seen by Provider: 04/09/23 10:55 History of Present Illness HPI narrative: Patient is a 7-year-old female who presents ER with concerns for UTI. Reports frequent urination over last 5 days. She has also had some nausea without vomiting. She Dr. PCP yesterday on the phone and received a prescription for Zofran but no antibiotics. Patient has had some weakness related to this. No falls. No chest pain or shortness breath. She is without abdominal pain or diarrhea. Related Data Home Medications Medication Instructions Recorded Confirmed aspirin 81 mg tablet,delayed 81 mg PO DAILY 09/27/19 03/19/23 release (Adult Aspirin Regimen) cholecalciferol (vitamin D3) 50 125 mcg PO DAILY 05/29/20 03/19/23 mcg (2,000 unit) tablet multivitamin (Multiple Vitamins 1 tablet PO DAILY 05/29/20 03/19/23 tablet) nystatin 100,000 unit/gram topical 1 applic topical BID PRN Rash 10/27/21 03/19/23 powder Allergies Allergy/AdvReac Type Severity Reaction Status Date / Time codeine Allergy Intermediate Rash Verified 04/09/23 11:02 Penicillins Allergy Intermediate Rash Verified 04/09/23 11:02 Sulfa (Sulfonamide Allergy Intermediate cheeks get Verified 04/09/23 11:02 Antibiotics) really red mulberry Allergy Mild Rash Uncoded 04/09/23 11:02 Atarax Allergy Unknown deep sleep Uncoded 04/09/23 11:02 Review of Systems Review of Systems: All systems reviewed & are unremarkable except as noted in HPI and below Constitutional: Constitutional: Denies chills, Reports fatigue and Denies fever(s) ENT: Denies nasal congestion and Denies sore throat Cardiovascular: Cardiovascular: Denies chest pain, Denies rapid heart rate and Denies radiating jaw, neck or arm pain Respiratory: Respiratory: Denies cough and Denies dyspnea Gastrointestinal: Gastrointestinal: Denies abdominal pain, Denies diarrhea, Reports nausea and Denies vomiting Genitourinary: Genitourinary: Reports dysuria PMF Past Medical History Medical History NATE (acute kidney injury) Anemia CHF (congestive heart failure), NYHA class I Chronic kidney disease, stage 4 (severe) Coronary artery disease involving [place] heart without angina pectoris Diabetic peripheral neuropathy Hyperlipidemia, unspecified Hypertension, essential Intertrochanteric fracture of left hip Metabolic acidosis PAD (peripheral artery disease) Postmenopausal Psychogenic formication Pulmonary HTN Sepsis Thrombosed external hemorrhoid Type 2 diabetes mellitus with hyperglycemia Surgical History Surgical History H/O heart artery stent History of cholecystectomy History of hip surgery with femur Hx of tonsillectomy Family History Family History Mother Cerebrovascular accident Diabetes mellitus Family history of cardiovascular disease Father Myocardial infarction Sibling Colon cancer Congestive heart failure Other Hypertension Social History Social History Social History: The patient had 3 children. 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 Her Trey is the durable power bankruptcy attorney for healthcare. The patient is a full code. Who is a lifelong nonsmoker. She does not use any alcohol marijuana or illicit drugs. Code status full code Smoking status: Never smoker Second hand tobacco smoke exposure: No Alcohol intake: never Substance use: never Substance use type: does not use Lack of Transportation: No Lack of Food: Never True Current Housing: I Have Housing Concerned About Future Housing: No Difficulty Paying Gas/Electric Bills: No Difficulty Paying for Meds: No C
[2023-04-09 13:33] VITALS: BP 167/98; PULSE 88; RESP 18; O2SAT 97
== END 2023-04-09 13:34 | disposition home or self-care (01) ==
PROVIDERS: Emergency Provider Emergency Medicine; PCP Family Medicine
DX: N39.0 Urinary tract infection, site not specified (principal); I13.0 Hypertensive heart and chronic kidney disease with heart failure and stage 1 through stage 4 chronic kidney disease, or unspecified chronic kidney disease; E11.22 Type 2 diabetes mellitus with diabetic chronic kidney disease; I50.9 Heart failure, unspecified; N18.4 Chronic kidney disease, stage 4 (severe); E78.5 Hyperlipidemia, unspecified; E11.51 Type 2 diabetes mellitus with diabetic peripheral angiopathy without gangrene; I73.9 Peripheral vascular disease, unspecified; I25.10 Atherosclerotic heart disease of native coronary artery without angina pectoris; I27.20 Pulmonary hypertension, unspecified; Z95.5 Presence of coronary angioplasty implant and graft; Z90.49 Acquired absence of other specified parts of digestive tract; Z79.82 Long term (current) use of aspirin; Z79.84 Long term (current) use of oral hypoglycemic drugs
CPT/HCPCS: 36415; 80053; 81001; 83690; 85025; 87077; 87086; 87186; 99283

== ENCOUNTER 2023-09-18 19:55 | Emergency (ER) | payer MEDICARE, SELFPAY ==
--- NOTE | ~2023-09-18 | XR_ITS ---
XR chest 2V Ordering provider: Miguel Antonio MD History: 78 years Female with . cp . Comparison: January 05, 2023 FINDINGS: MEDIASTINUM: The cardiac silhouette is slightly enlarged. LUNGS: No infiltrates, effusions or pneumothorax. OTHER: No free air under the diaphragm. Degenerative the spine. IMPRESSION: No acute cardiopulmonary pathology. Reviewed, dictated and finalized at location A.
--- NOTE | 2023-09-18 20:09 | ECG_ITS ---
Test Date: 2023-09-18 20:12:59 Measurements Intervals [place] Rate: 87 P: 31 FL: 151 QRS: 30 QRSD: 62 T: 27 QT: 329 QTc: 397 Interpretive Statements SINUS RHYTHM LOW QRS VOLTAGE IN PRECORDIAL LEADS [QRS DEFLECTION < 1.0 mV IN CHEST LEADS] No previous ECG available for comparison Electronically Signed On 09-19-2023 13:01:32 CDT by Romie Jimenez M.D.
[2023-09-18 20:30] LABS: Basophils Absolute Auto 0.1 K/mm3 (0.0-0.1); Basophils Percent Auto 0.6 % (0.2-1.2); Eosinophils Absolute Auto 0.2 K/mm3 (0-0.3); Eosinophils Percent Auto 2.1 % (0-4.4); Hematocrit 35.2 % (37.0-47.0); Hemoglobin 10.5 g/dL (12.0-15.0); Immature Granulocyte Absolute 0.05 K/mm3 (0.00-0.031); Immature Granulocyte Percent A 0.6 % (0-0.5); Lymphocytes Absolute Auto 2.59 K/mm3 (0.9-3.2); Lymphocytes Percent Auto 30.6 % (18.3-44.2); Mean Corpuscular HGB Conc 29.8 g/dl (32-36); Mean Corpuscular Volume 93.9 fl (80-100); Mean Platelet Volume 9.7 fl (7.4-10.4); Monocytes Absolute Auto 0.6 K/mm3 (0.1-0.6); Monocytes Percent Auto 7.3 % (2.6-8.5); Neutrophils Percent Auto 58.8 % (45.5-73.1); Platelet Count Result 249 k/mm3 (150-375); Red Blood Count 3.75 M/mm3 (4.2-5.4); Red Cell Distribution Width 16.6 % (11.5-14.5); White Blood Count 8.5 K/mm3 (4.5-10.0)
[2023-09-18 20:37] VITALS: BP 146/71; PULSE 87; RESP 16; TEMP 36.3; O2SAT 97
[2023-09-18 20:40] LABS: Alanine Aminotransferase 16 U/L (6-35); Albumin Level 4.2 g/dL (3.5-5.1); Alkaline Phosphatase 121 U/L (38-126); Anion Gap 12 mmol/L (4-12); Aspartate Amino Transferase 19 U/L (14-36); Bilirubin,Total 0.4 mg/dL (0.2-1.3); Blood Urea Nitrogen 67 mg/dL (7-17); Calcium 9.4 mg/dL (8.4-10.2); Carbon Dioxide 16 mmol/L (22-30); Chloride 113 mmol/L (98-107); Estimated Glomerular Filt Rate 16; Glucose 157 mg/dL (65-110); Lipase 228 U/L (23-300); Potassium 5.7 mmol/L (3.4-5.0); Sodium 141 mmol/L (137-145)
[2023-09-18 20:50] LABS: Prothrombin Time 13.6 Seconds (11.1-14.7)
[2023-09-18 20:51] LABS: Partial Thromboplastin Time 27.1 Seconds (22.3-36.8); Troponin I < 0.012 ng/mL (0.000-0.034)
[2023-09-18 22:27] VITALS: O2SAT 99
[2023-09-18 22:41] VITALS: BP 145/64; PULSE 91; RESP 15; O2SAT 98
[2023-09-18 23:50] LABS: Troponin I < 0.012 ng/mL (0.000-0.034)
--- NOTE | 2023-09-19 00:34 | ED.GENADULT ---
HPI - General Adult General Chief complaint: Chest Pain Stated complaint: chest pain Time Seen by Provider: 09/19/23 00:10 History of Present Illness HPI narrative: this is an 78-year-old female presenting with 2 days of chest pain. Patient describes the pain as a burning pain in the epigastric area that radiates into her chest. It comes and goes but is worse at night. She says that the pain improves when she takes Pepto-Bismol Tylenol and Zofran. Sometimes it is improved by eating. The pain does not radiate, no exertional component she has not become diaphoretic. She has a known hiatal hernia. Related Data Home Medications Medication Instructions Recorded Confirmed aspirin 81 mg tablet,delayed 81 mg PO DAILY 09/27/19 09/18/23 release (Adult Aspirin Regimen) polyethylene glycol 3350 17 gram 17 g PO QAM PRN 08/17/23 09/18/23 oral powder packet (Miralax) Allergies Allergy/AdvReac Type Severity Reaction Status Date / Time codeine Allergy Intermediate Rash Verified 09/18/23 22:28 Penicillins Allergy Intermediate Rash Verified 09/18/23 22:28 Sulfa (Sulfonamide Allergy Intermediate cheeks get Verified 09/18/23 22:28 Antibiotics) really red mulberry Allergy Mild Rash Uncoded 09/18/23 22:28 Atarax Allergy Unknown deep sleep Uncoded 09/18/23 22:28 [facility] Past Medical History Medical History NATE (acute kidney injury) Anemia CHF (congestive heart failure), NYHA class I Chronic kidney disease, stage 4 (severe) Coronary artery disease involving [place] heart without angina pectoris Diabetic peripheral neuropathy Hyperlipidemia, unspecified Hypertension, essential Intertrochanteric fracture of left hip Metabolic acidosis PAD (peripheral artery disease) Postmenopausal Psychogenic formication Pulmonary HTN Sepsis Thrombosed external hemorrhoid Type 2 diabetes mellitus with hyperglycemia Surgical History Surgical History H/O heart artery stent History of cholecystectomy History of hip surgery with femur Hx of tonsillectomy Family History Family History Mother Cerebrovascular accident Diabetes mellitus Family history of cardiovascular disease Father Myocardial infarction Sibling Colon cancer Congestive heart failure Other Hypertension Social History Social History Social History: The patient had 3 children. 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 Her Trey is the durable power exploration engineer for healthcare. The patient is a full code. Who is a lifelong nonsmoker. She does not use any alcohol marijuana or illicit drugs. Code status full code Smoking status: Never smoker Second hand tobacco smoke exposure: No Alcohol intake: never Substance use: never Substance use type: does not use Do You Feel Safe in your Home?: Yes Lack of Transportation: No Lack of Food: Never True Current Housing: I Have Housing Concerned About Future Housing: No Difficulty Paying Gas/Electric Bills: No Difficulty Paying for Meds: No Currently Unemployed: No Education: High School Diploma/GED Difficulty w/ Childcare or Family Care: No Living arrangements: with family Occupation/Education: retired Gender identity (if verbalized by the patient): Female Spiritual care concerns: No Exam Narrative: APPEARANCE: No apparent distress. Head: atraumatic. EYES: EOMI, NOSE: Atraumatic NECK: Trachea midline RESPIRATORY: No increased rate of breathing Clear auscultation CARDIOVASCULAR: RRR, no peripheral edema ABDOMINAL: Non-distended soft nontender MUSCULOSKELETAl: No obvious deformities NEURO: Alert. Moving 4/4 extremities SKIN:: Warm, dry. Normal color PSYCHIATRIC: Normal affect Course Vital Signs V
[2023-09-19] MEDS: FAMOTIDINE 20 MG TABLET PO (00:38)
[2023-09-19] MEDS: MAG HYDROX/AL HYDROX/SIMETH 30 ML UDC PO (00:38)
== END 2023-09-19 01:06 | disposition home or self-care (01) ==
LOC: ANHED 09-19 00:38
PROVIDERS: Emergency Provider Emergency Medicine; PCP Family Medicine
DX: K21.9 Gastro-esophageal reflux disease without esophagitis (principal); I25.10 Atherosclerotic heart disease of native coronary artery without angina pectoris; E78.5 Hyperlipidemia, unspecified; E11.22 Type 2 diabetes mellitus with diabetic chronic kidney disease; I13.0 Hypertensive heart and chronic kidney disease with heart failure and stage 1 through stage 4 chronic kidney disease, or unspecified chronic kidney disease; I50.9 Heart failure, unspecified; N18.4 Chronic kidney disease, stage 4 (severe); E11.42 Type 2 diabetes mellitus with diabetic polyneuropathy; E11.51 Type 2 diabetes mellitus with diabetic peripheral angiopathy without gangrene; I73.9 Peripheral vascular disease, unspecified; I27.20 Pulmonary hypertension, unspecified; Z95.5 Presence of coronary angioplasty implant and graft; Z90.49 Acquired absence of other specified parts of digestive tract; Z79.84 Long term (current) use of oral hypoglycemic drugs; Z79.82 Long term (current) use of aspirin; Z79.899 Other long term (current) drug therapy
CPT/HCPCS: 36415; 71046; 80053; 83690; 84484; 85025; 85610; 85730; 93005; 99284; A9270

== ENCOUNTER 2023-09-20 21:12 | Inpatient (IN) | payer MEDICARE, SELFPAY ==
[2023-09-20] VITALS (7 sets, daily range): BP systolic 151–172; BP diastolic 73–84; PULSE 87–97; RESP 14–20; TEMP 36.2; O2SAT 98–100
--- NOTE | ~2023-09-20 | CT_ITS ---
EXAMINATION: CT abdomen pelvis wo con DATE: 09/21/2023 00:58 INDICATION: Abdominal pain. TECHNIQUE: Computed tomography (CT) of the abdomen and pelvis was performed without intravenous contr ast. Automated exposure control and iterative reconstruction technique were employed. The dose-length product was 1465.31 mGy-cm. COMPARISON: CT abdomen and pelvis 10/25/2022 FINDINGS: The visualized portions of the lung bases demonstrate mild atelectasis and mild chronic sarah g disease. A calcified left lung nodule is consistent with old granulomatous disease. No pleural effu wilner. The heart size is normal. There are coronary artery calcifications. No pericardial effusion. Th ere is diffuse hepatic steatosis. There are changes of cholecystectomy. Calcifications in the spleen are consistent with old granulomatous disease. There are calcifications of the pancreas, consistent w ith chronic pancreatitis. The adrenal glands are normal. There is mild atrophy of the kidneys. There are cysts in the kidneys measuring up to 15 mm on the left. There is a 5 mm stone in left kidney. The re is an umbilical hernia containing fat. There are bilateral inguinal hernias containing fat. There is diverticulosis of the colon without evidence of diverticulitis. The appendix is normal. Aortic ath erosclerosis is noted. There are no pathologically enlarged lymph nodes. There is no free intraperito gerda fluid. There is internal fixation of left femur. There is severe lumbar spondylosis. There are b ridging endplate osteophytes at multiple levels in the spine, consistent with diffuse idiopathic skel etal hyperostosis (DISH). IMPRESSION: 1. Diffuse hepatic steatosis. 2. Umbilical hernia containing fat. Bilateral inguinal hernias containing fat. Reviewed, dictated and finalized at location E.
--- NOTE | ~2023-09-20 | US_ITS ---
EXAMINATION: US abdomen limited DATE: 09/21/2023 14:13 INDICATION: Transaminitis. TECHNIQUE: Multiple grayscale and Doppler ultrasound images of the abdomen were obtained. COMPARISON: CT abdomen and pelvis 09/21/2023 FINDINGS: The visualized portions of the head, body, and tail of the pancreas are normal. There is di ffuse hepatic steatosis. There is normal flow in main portal vein. The gallbladder is absent. The com mon duct is normal and measures 7 mm. IMPRESSION: 1. Diffuse hepatic steatosis. Reviewed, dictated and finalized at location E.
--- NOTE | ~2023-09-20 | XR_ITS ---
EXAMINATION: XR chest 2V Exam Date/Time: 09/20/2023 21:52 CDT HISTORY: cp Comparison: 09/18/2023. RESULT: Lines, tubes, and devices: Coronary stent. Lungs and pleura: Senescent/emphysematous change. Left basilar scar. Cardiomediastinal silhouette: Stable. Other: No acute osseous or upper abdominal finding. IMPRESSION: No acute cardiopulmonary process. Reviewed, dictated and finalized at location K.
--- NOTE | 2023-09-20 21:13 | ECG_ITS ---
Test Date: 2023-09-20 21:19:52 Measurements Intervals [place] Rate: 97 P: 24 DE: 153 QRS: 17 QRSD: 67 T: 33 QT: 319 QTc: 406 Interpretive Statements SINUS RHYTHM Compared to ECG 09/18/2023 20:12:59 NO SIGNIFICANT CHANGES Electronically Signed On 09-21-2023 12:06:01 CDT by Rocael Whaley M.D.
[2023-09-20 21:41] LABS: Basophils Percent Auto 0.4 % (0.2-1.2); Eosinophils Absolute Auto 0.2 K/mm3 (0-0.3); Eosinophils Percent Auto 2.2 % (0-4.4); Hematocrit 35.5 % (37.0-47.0); Hemoglobin 10.7 g/dL (12.0-15.0); Immature Granulocyte Absolute 0.05 K/mm3 (0.00-0.031); Immature Granulocyte Percent A 0.6 % (0-0.5); Lymphocytes Percent Auto 25.9 % (18.3-44.2); Mean Corpuscular HGB Conc 30.1 g/dl (32-36); Mean Corpuscular Hemoglobin 27.9 pg (26-34); Mean Corpuscular Volume 92.7 fl (80-100); Mean Platelet Volume 9.3 fl (7.4-10.4); Monocytes Absolute Auto 0.6 K/mm3 (0.1-0.6); Monocytes Percent Auto 7.2 % (2.6-8.5); Neutrophils Absolute Auto 4.9 K/mm3 (1.3-6.7); Neutrophils Percent Auto 63.7 % (45.5-73.1); Platelet Count Result 235 k/mm3 (150-375); Red Blood Count 3.83 M/mm3 (4.2-5.4); Red Cell Distribution Width 16.9 % (11.5-14.5); White Blood Count 7.7 K/mm3 (4.5-10.0)
[2023-09-20] MEDS: ASPIRIN 81 MG CHEWABLE TABLET 324 MG PO (21:49)
[2023-09-20 21:51] LABS: Alanine Aminotransferase 15 U/L (6-35); Albumin Level 4.4 g/dL (3.5-5.1); Alkaline Phosphatase 133 U/L (38-126); Anion Gap 10 mmol/L (4-12); Aspartate Amino Transferase 18 U/L (14-36); Bilirubin,Total 0.3 mg/dL (0.2-1.3); Blood Urea Nitrogen 65 mg/dL (7-17); Calcium 9.4 mg/dL (8.4-10.2); Carbon Dioxide 18 mmol/L (22-30); Chloride 114 mmol/L (98-107); Estimated CRCL calculation 15 ml/min; Estimated Glomerular Filt Rate 15; Glucose 196 mg/dL (65-110); INR 0.9; Lipase 174 U/L (23-300); Potassium 5.6 mmol/L (3.4-5.0); Prothrombin Time 12.8 Seconds (11.1-14.7); Sodium 142 mmol/L (137-145)
--- NOTE | 2023-09-20 21:51 | PC.NURSE ---
Patient states that she takes one baby aspirin a day. Only three 81mg baby aspirin given to patient.
[2023-09-20 21:52] LABS: Partial Thromboplastin Time 27.4 Seconds (22.3-36.8)
[2023-09-20 22:08] LABS: Troponin I 0.024 ng/mL (0.000-0.034)
[2023-09-21] VITALS (18 sets, daily range): BP systolic 130–174; BP diastolic 65–83; PULSE 76–102; RESP 16–25; TEMP 36–37.1; O2SAT 95–99; BMI 39.4
--- NOTE | 2023-09-21 | ECHO_ITS ---
Patient Info Name: Kori Arellano Age: 78 years : 1945 Gender: Female Ht: 64 in Wt: 209 lbs BSA: 2.11 m2 HR: 86 bpm BP: 143 / 75 mmHg Heart Rhythm: Sinus Rhythm Technical Quality: Fair Exam Date: 09/21/2023 7:32 AM Exam Location: Echo Lab Patient Status: Outpatient Admit Date: 09/21/2023 Staff Ordering Physician: Chidi Galvez MD Filling Carrier: Lima Booker RDCS Attending Provider: Alicja Cheng DO Exam Type: CA echo dop color flow w con Study Info Indications - NSTEMI Complete two-dimensional, color flow and Doppler transthoracic echocardiogram is performed with contrast to opacify the left ventricle and to improve the deliniation of the left ventricle endocardial borders. Contrast/Agitated Saline Contrast/Ag. Saline: Definity Amount: 3.00 ml Administered By: Lima Booker RDCS Existing IV Access: Yes IV Access Condition: patent with no signs of infiltration Summary 1. Left ventricular chamber dimension is normal. 2. Left ventricular systolic function is normal, estimated at 65-70%. 3. There is hypokinesis of the mid inferoseptum, apical septum, apical cap, mid inferior wall, apical inferior, mid anteroseptum. 4. The left ventricular diastolic function is grade I diastolic dysfunction. 5. Right ventricular systolic function is normal. 6. There is mild tricuspid valve regurgitation. Left Ventricle There is hypokinesis of the mid inferoseptum, apical septum, apical cap, mid inferior wall, apical inferior, mid anteroseptum. Left ventricular chamber dimension is normal. Left ventricular systolic function is normal, estimated at 65-70%. There is no increased left ventricular wall thickness. The left ventricular diastolic function is grade I diastolic dysfunction. Right Ventricle Right ventricular chamber dimension is normal. Right ventricular systolic function is normal. Left Atria Left atrial chamber dimension is normal. Right Atria Right atrial chamber dimension is normal. Atrial Septum Intact interatrial septum visualized by color flow imaging. Aortic Valve The aortic valve is probable trileaflet. There is no aortic valve stenosis. There is no aortic valve regurgitation. There is mild aortic valve calcification. Pulmonic Valve The pulmonic valve is not well visualized. There is no pulmonic regurgitation. Mitral Valve There is trace mitral valve regurgitation. The mitral valve annulus is mildly calcified. Tricuspid Valve There is mild tricuspid valve regurgitation. Pericardium/Pleural The pericardium appears epicardial fat pad. There is no pericardial effusion. Inferior Vena Cava Inferior vena cava is not well visualized. Aorta The aortic root size at the sinus of Valsalva is normal. Left Ventricular Outflow Tract Name Value Normal LVOT 2D LVOT Diameter 1.98 cm LVOT Doppler LVOT Peak Gradient 5 mmHg LVOT Mean Gradient 3 mmHg LVOT VTI 25.10 cm LVOT VTI/AV VTI Ratio 0.81 LVOT Stroke Volume 77.00 ml LVOT CO 6.20 l/min
--- NOTE | 2023-09-21 00:07 | ECG_ITS ---
Test Date: 2023-09-21 00:19:17 Measurements Intervals [place] Rate: 91 P: 25 MS: 167 QRS: 25 QRSD: 65 T: 32 QT: 328 QTc: 405 Interpretive Statements SINUS RHYTHM Compared to ECG 09/20/2023 21:19:52 No significant changes Electronically Signed On 09-21-2023 12:06:27 CDT by Rocael Whaley M.D.
[2023-09-21] MEDS: PANTOPRAZOLE SODIUM IV 40 MG VIAL IV PUSH (00:21)
[2023-09-21] MEDS: ONDANSETRON INJ 4 MG/2 ML VIAL IV PUSH ×2 (00:22→00:53)
[2023-09-21] MEDS: MORPHINE SULFATE (*CRX) 4 MG/ML INJ IV PUSH (00:24)
[2023-09-21 00:51] LABS: Troponin I 0.074 ng/mL (0.000-0.034)
[2023-09-21 01:00] LABS: Appearance Urine Clear (Clear); Bacteria Urine None Seen /hpf; Bilirubin Urine Negative (Negative); Blood Urine Negative (Negative); Color Urine Yellow (Yellow); Glucose Urine UA Trace mg/dL (Negative); Ketones Urine Negative (Negative); Leukocyte Esterase Ur Trace LEU/UL (Negative); Nitrate Urine Negative (Negative); Protein Urine 1+ mg/dL (Negative); RBC Urine 0-2 /hpf (0-2); Specific Grav Ur 1.016 (1.001-1.035); Squamous Epithelial Cell Urine Occasional /hpf (Few); Urobilinogen Urine 0.2 mg/dL (<2.0)
[2023-09-21 01:02] LABS: Add Urine Microscopic? YES
[2023-09-21] MEDS: HYDROmorphone HCL INJ (*CRX) 1 MG/ML SYR IV PUSH ×2 (01:07→01:34)
--- NOTE | 2023-09-21 02:16 | ED.GENADULT ---
HPI - General Adult General Chief complaint: Chest Pain Stated complaint: chest pain Time Seen by Provider: 09/20/23 23:30 History of Present Illness HPI narrative: patient is 78-year-old female who presents emergency department with chief complaint of epigastric pain. Patient reports he has been having pain since Wednesday and was seen in the emergency department on Wednesday and treated for gastroesophageal reflux disease patient does report that she has prior history of 3 cardiac stents placed and has prior history of chronic kidney disease chronic pancreatitis hypertension hyperlipidemia. Patient reports that since she has arrived to the emergency department she started having pain throughout her abdomen reports not improved by anything reports she has had nausea with this as well Related Data Home Medications Medication Instructions Recorded Confirmed aspirin 81 mg tablet,delayed 81 mg PO DAILY 09/27/19 09/18/23 release (Adult Aspirin Regimen) polyethylene glycol 3350 17 gram 17 g PO QAM PRN 08/17/23 09/18/23 oral powder packet (Miralax) Allergies Allergy/AdvReac Type Severity Reaction Status Date / Time codeine Allergy Intermediate Rash Verified 09/20/23 21:12 Penicillins Allergy Intermediate Rash Verified 09/20/23 21:12 Sulfa (Sulfonamide Allergy Intermediate cheeks get Verified 09/20/23 21:12 Antibiotics) really red mulberry Allergy Mild Rash Uncoded 09/18/23 22:28 Atarax Allergy Unknown deep sleep Uncoded 09/18/23 22:28 Review of Systems Review of Systems: A 10 system review of systems was completed on the patient and is negative except for what is stated in the HPI. Nursing and ancillary documentation was reviewed. [facility] Past Medical History Medical History NATE (acute kidney injury) Anemia CHF (congestive heart failure), NYHA class I Chronic kidney disease, stage 4 (severe) Coronary artery disease involving [place] heart without angina pectoris Diabetic peripheral neuropathy Hyperlipidemia, unspecified Hypertension, essential Intertrochanteric fracture of left hip Metabolic acidosis PAD (peripheral artery disease) Postmenopausal Psychogenic formication Pulmonary HTN Sepsis Thrombosed external hemorrhoid Type 2 diabetes mellitus with hyperglycemia Surgical History Surgical History H/O heart artery stent History of cholecystectomy History of hip surgery with femur Hx of tonsillectomy Family History Family History Mother Cerebrovascular accident Diabetes mellitus Family history of cardiovascular disease Father Myocardial infarction Sibling Colon cancer Congestive heart failure Other Hypertension Social History Social History Social History: The patient had 3 children. 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 Her Trey is the durable power attorney at law for healthcare. The patient is a full code. Who is a lifelong nonsmoker. She does not use any alcohol marijuana or illicit drugs. Code status full code Smoking status: Never smoker Second hand tobacco smoke exposure: No Alcohol intake: never Substance use: never Substance use type: does not use Do You Feel Safe in your Home?: Yes Lack of Transportation: No Lack of Food: Never True Current Housing: I Have Housing Concerned About Future Housing: No Difficulty Paying Gas/Electric Bills: No Difficulty Paying for Meds: No Currently Unemployed: No Education: High School Diploma/GED Difficulty w/ Childcare or Family Care: No Living arrangements: with family Occupation/Education: retired Gender identity (if verbalized by the patient): Female Spiritual care concerns: No Exam Narrative: GENERAL: Well-appearing
--- NOTE | 2023-09-21 02:53 | ECG_ITS ---
Test Date: 2023-09-21 03:04:41 Measurements Intervals [place] Rate: 86 P: 48 WV: 168 QRS: 36 QRSD: 77 T: 31 QT: 340 QTc: 407 Interpretive Statements SINUS RHYTHM Compared to ECG 09/21/2023 00:19:17 NO SIGNIFICANT CHANGES Electronically Signed On 09-21-2023 12:08:50 CDT by Rocael Whaley M.D.
[2023-09-21 03:29] LABS: Troponin I 0.095 ng/mL (0.000-0.034)
[2023-09-21] MEDS: HEPARIN SODIUM 5,000 UNITS/ML VIAL 4000 UNITS IV PUSH (04:05)
[2023-09-21] MEDS: HEPARIN SOD/D5W 100 UNITS/ML 25,000 UNITS/250 ML BAG 8 UNITS IV CONT (04:06)
--- NOTE | 2023-09-21 04:47 | PM.IMHP ---
H&P: HPI History of Present Illness Date/Time: 09/21/23 04:47 Chief Complaint: Chest pain Narrative: *1 yo female with PMH of CHF, HTN, CKD, who presented to the ER on account of chest pain, patient was in painful distress and unabel to provide history. ER eval notable for vital signs PA 90, RR 25, BP 174/81, 95% on room air, labs notable for hb 10.7, K 5.6, Cr 3.0, Troponin positive on 3rd draw, CXR unremarkable, CT AP pending. Started on heparin infusion prior to admission Review of Systems Review of Systems: unabel to provide review of systems due to pain PMFSH Past Medical History Medical History NATE (acute kidney injury) Anemia CHF (congestive heart failure), NYHA class I Chronic kidney disease, stage 4 (severe) Coronary artery disease involving [place] heart without angina pectoris Diabetic peripheral neuropathy Hyperlipidemia, unspecified Hypertension, essential Intertrochanteric fracture of left hip Metabolic acidosis PAD (peripheral artery disease) Postmenopausal Psychogenic formication Pulmonary HTN Sepsis Thrombosed external hemorrhoid Type 2 diabetes mellitus with hyperglycemia Surgical History Surgical History H/O heart artery stent History of cholecystectomy History of hip surgery with femur Hx of tonsillectomy Family History Family History Mother Cerebrovascular accident Diabetes mellitus Family history of cardiovascular disease Father Myocardial infarction Sibling Colon cancer Congestive heart failure Other Hypertension Social History Social History Social History: The patient had 3 children. 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 Power workers compensation attorney for healthcare. Her Trey is the durable power workers compensation attorney for healthcare. The patient is a full code. Who is a lifelong nonsmoker. She does not use any alcohol marijuana or illicit drugs. Code status full code Smoking status: Never smoker Second hand tobacco smoke exposure: No Alcohol intake: never Substance use: never Substance use type: does not use Do You Feel Safe in your Home?: Yes Lack of Transportation: No Lack of Food: Never True Current Housing: I Have Housing Concerned About Future Housing: No Difficulty Paying Gas/Electric Bills: No Difficulty Paying for Meds: No Currently Unemployed: No Education: High School Diploma/GED Difficulty w/ Childcare or Family Care: No Living arrangements: with family Occupation/Education: retired Gender identity (if verbalized by the patient): Female Spiritual care concerns: No Meds Home Medications and Allergies Home Medications Medication Instructions Recorded Confirmed Type aspirin 81 mg tablet,delayed 81 mg PO DAILY 09/27/19 09/18/23 History release (Adult Aspirin Regimen) cyanocobalamin (vitamin B-12) 1,000 mcg PO QAM #30 tabs 05/21/22 09/18/23 Rx 1,000 mcg tablet (Vitamin B-12) flash glucose scanning reader #1 ea 11/05/22 09/18/23 Rx (FreeStyle Ronal 2 [place]) acetaminophen 325 mg capsule 650 mg PO Q6H PRN pain #30 caps 01/22/23 09/18/23 Rx (Tylenol) amlodipine 5 mg tablet (Norvasc) 10 mg PO QAM 90 days #180 tabs 08/10/23 09/18/23 Rx glipizide 2.5 mg tablet, extended 2.5 mg PO DAILY #90 tabs 08/10/23 09/18/23 Rx release 24 hr hydrochlorothiazide 25 mg tablet 25 mg PO DAILY #30 tabs 08/10/23 09/18/23 Rx simvastatin 20 mg tablet 20 mg PO DAILY #30 tabs 08/10/23 09/18/23 Rx polyethylene glycol 3350 17 gram 17 g PO QAM PRN 08/17/23 09/18/23 History oral powder packet (Miralax) flash glucose sensor (FreeStyle #6 ea 08/31/23 09/18/23 Rx Ronal 2 Sensor kit) losartan 50 mg tablet 50 mg PO DAILY #90 tabs 09/09/23 09/18/23 Rx omeprazole 20 mg capsule,delayed 20 mg PO DA
[2023-09-21] MEDS: PROCHLORPERAZINE EDISYLATE 10 MG/2 ML VIAL IV PUSH (04:58)
--- NOTE | 2023-09-21 05:20 | ADMGEN ---
This patient, Kori Arellano, was admitted to IMU Room 211-01. Patient/family oriented to hospital policies and general routines including ID bracelet, bed and alarms, visiting hours, pain management, procedures, bathroom and other care routines, personal items, smoking policy, room service/diet, and visiting hours. Information on how to activate the Rapid Response Team has been discussed. Patient/Family are encouraged to report perceived risks to care and to ask questions if they do not understand what they are told or what they should do.
[2023-09-21 06:27] LABS: Iron 51 ug/dL (37-170)
[2023-09-21 06:28] LABS: Cholesterol 219 mg/dL (0-200); HDL Direct 38 mg/dL; Triglycerides 303 mg/dL (<150)
[2023-09-21 06:37] LABS: Percent Iron Saturation 19 % (20-50)
[2023-09-21 06:40] LABS: LDL Cholesterol Direct 121 mg/dL
[2023-09-21 07:38] LABS: Hemoglobin A1C 7.5 % (<5.7)
[2023-09-21] MEDS: PERFLUTREN LIPID MICROSPHERES 1.5 ML VIAL DILUTED TO 10 ML TOTAL VOLUME IV PUSH (07:38)
[2023-09-21 08:39] LABS: Glucose Point of Care 303 mg/dl (65-105)
[2023-09-21] MEDS: ASPIRIN 81 MG CHEWABLE TABLET PO (08:43)
[2023-09-21] MEDS: ATORVASTATIN 20 MG TABLET PO (08:43)
[2023-09-21] MEDS: INSULIN ASPART (*BKC) 100 UNITS/ML SUB-Q ×2 (09:56→11:48)
--- NOTE | 2023-09-21 10:02 | IVDEFINITY ---
Prior to administration of IV Definity the patient was educated on the risks and benefits of the imaging enhancing agent including potential adverse side effects. The patient verbalized understanding. Allergies were verified. No exclusion criteria were identified and at least one of the following inclusion criteria were met: 1) physician request, 2) patient technically difficult to image (per the [place] Society of Echocardiography guidelines of two or more segments not discernable within the apical view), or 3) questionable left ventricular function. ?
[2023-09-21 10:09] LABS: Basophils Percent Auto 0.2 % (0.2-1.2); Eosinophils Percent Auto 0.1 % (0-4.4); Hematocrit 31.8 % (37.0-47.0); Hemoglobin 9.6 g/dL (12.0-15.0); Immature Granulocyte Absolute 0.05 K/mm3 (0.00-0.031); Immature Granulocyte Percent A 0.4 % (0-0.5); Lymphocytes Absolute Auto 1.07 K/mm3 (0.9-3.2); Lymphocytes Percent Auto 8.1 % (18.3-44.2); Mean Corpuscular HGB Conc 30.2 g/dl (32-36); Mean Corpuscular Hemoglobin 28.2 pg (26-34); Mean Corpuscular Volume 93.5 fl (80-100); Mean Platelet Volume 9.9 fl (7.4-10.4); Monocytes Absolute Auto 0.7 K/mm3 (0.1-0.6); Monocytes Percent Auto 5.3 % (2.6-8.5); Neutrophils Absolute Auto 11.3 K/mm3 (1.3-6.7); Neutrophils Percent Auto 85.9 % (45.5-73.1); Platelet Count Result 193 k/mm3 (150-375); Red Cell Distribution Width 16.7 % (11.5-14.5); White Blood Count 13.2 K/mm3 (4.5-10.0)
[2023-09-21 10:23] LABS: Prothrombin Time 13.8 Seconds (11.1-14.7)
[2023-09-21 10:24] LABS: Partial Thromboplastin Time 56.1 Seconds (22.3-36.8)
[2023-09-21] MEDS: HEPARIN SODIUM 5,000 UNITS/ML VIAL 3000 UNITS IV PUSH (10:35)
[2023-09-21] MEDS: CALCIUM GLUC 1,000 MG/NS 50 ML 1,000 MG/50 ML BAG 100 MG IVPB (11:47)
[2023-09-21] MEDS: FUROSEMIDE INJ 40 MG/4 ML VIAL 20 MG IV PUSH (11:47)
[2023-09-21] MEDS: OMEGA 3 POLYUNSAT FATTY ACIDS 1 GM CAP PO (11:48)
--- NOTE | 2023-09-21 11:50 | PM.EVENT ---
Event Note Event Note Event Note: 78-year-old female with PMH CAD status post stent, hypertension, hyperlipidemia, [id number] diabetes mellitus, chronic pancreatitis, CKD stage IV, diastolic heart failure compensated on diuretics, PAD, diabetic neuropathy, Patient seen at bedside with nurse Nicole. She is a very poor historian at the moment due to receiving large volume narcotics the ER. He falls asleep easily. Protect airway otherwise. However, reported noncompliance as well. Acute issues include hyperkalemia. Rechecking level as it was not recheck today. Will give Lasix plus dextrose plus insulin plus albuterol inhaler if still high. Discontinue her home dose losartan. If persistent hyperkalemia start Lokelma. Chest pain/abdominal pain. Patient is a poor historian, reports pain all over the abdomen and chest. She cannot describe it further. Cardiology consulted. Continue to trend troponins heparin. NPO midnight. She received large doses of narcotics in the ER in order to control the pain and this is more indicative of pain of chronic pancreatitis. However, will defer true decision for cardiac workup to Cardiology. Lipase negative. Continue aspirin and simvastatin. Continue Protonix, home meds include Protonix omeprazole and Pepcid for unknown reason. Pending surface echocardiogram atient has triglycerides 300, start [place] 3 polyunsaturated fatty acids. Her last endocrinology note patient on Lovaza 2 g twice a day however this was not on her home med list. Leukocytosis, chest x-ray, CT abdomen pelvis, UA, not indicative of infection. Patient denies cough. Likely reactive. Check procalcitonin in the morning and monitor. CKD stage IV. Continue to trend renal function. Likely due to hypertension and diabetes due to last [facility] note. Chronic anemia. Check FOB T iron profile and ferritin. History of snoring and has refused sleep test multiple times. History of hypertension. Currently mildly elevated continue amlodipine. Discontinue losartan. 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 Nrt-vlcfpys-fbkxwdmbi diabetes mellitus. 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 -glucose monitoring ACHS, LDISS, hypoglycemia protocol Heparin GTT, Protonix. Full code. Stable on telemetry floor. # # # # # Chronic Conditions - - - F/E/N: saline lock IV, replace lytes as needed, GI prophylaxis: DVT prophylaxis: Lines: Code Status: Dispo: Medication reconciliation obtained via the following: Social Drivers of Health -Living arrangements and functional status: Patient lives at home with . Possibly noncompliant. -Patient was screened for food insecurity, housing instability, transportation needs, utility difficulties, and interpersonal safety. 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 No needs identified Agents of Abuse -Illicit drug abuse: Denies -ETOH abuse: Denies -Tobacco/nicotine: Denies -Energy drinks: Denies Heart Failure MIPS: Diastolic heart failure, no indication for ARNI Time based care: Note to the patient: The 21st Century Cures Act makes medical notes like these available to patients in the interest of transparency. Please be advised this is a medical document. It is intended for pejw-yj-kcjy communication. It is written in medical language and may contain unfamiliar abbreviations or verbiage. Components may appear blunt or direct. Medical documents are intended to carry relevant information, facts as evident, and the clinical opinion of the practitioner at the time of the encounter. This note was generated by a speech recognition system and may contain inherent errors or omissions not intended by the user. Grammatical errors, random word insertions, deletions, pronoun errors and incomplete sentences are occasional consequences of this technology due to software limitations. Not all errors are caught or corrected. If
[2023-09-21 11:57] LABS: Glucose Point of Care 270 mg/dl (65-105)
[2023-09-21 12:32] LABS: Troponin I 0.631 ng/mL (0.000-0.034)
--- NOTE | 2023-09-21 12:34 | ECG_ITS ---
Test Date: 2023-09-21 12:45:50 Measurements Intervals [place] Rate: 88 P: 52 SD: 181 QRS: 49 QRSD: 67 T: 49 QT: 332 QTc: 403 Interpretive Statements SINUS RHYTHM Compared to ECG 09/21/2023 03:04:41 No significant changes Electronically Signed On 09-22-2023 14:23:22 CDT by Rocael Whaley M.D.
[2023-09-21 13:10] LABS: Alanine Aminotransferase 186 U/L (6-35); Albumin Level 4.1 g/dL (3.5-5.1); Alkaline Phosphatase 163 U/L (38-126); Anion Gap 6 mmol/L (4-12); Aspartate Amino Transferase 314 U/L (14-36); Bilirubin,Total 0.3 mg/dL (0.2-1.3); Blood Urea Nitrogen 62 mg/dL (7-17); Calcium 10.2 mg/dL (8.4-10.2); Carbon Dioxide 23 mmol/L (22-30); Chloride 113 mmol/L (98-107); Estimated CRCL calculation 17 ml/min; Estimated Glomerular Filt Rate 16; Glucose 221 mg/dL (65-110); Potassium 6.7 mmol/L (3.4-5.0); Sodium 142 mmol/L (137-145)
[2023-09-21] MEDS: DEXTROSE 50% 25 GM/50 ML SYRINGE IV PUSH (13:31)
[2023-09-21] MEDS: INSULIN HUMAN REGULAR (*BKC) 100 UNITS/ML 10 UNITS IV PUSH (13:31)
[2023-09-21] MEDS: ALBUTEROL SULFATE NEB 2.5 MG/3 ML INH 1.25 MG INHALATION (13:35)
[2023-09-21] MEDS: SODIUM ZIRCONIUM CYCLOSILICATE 5 GM POWD.PACK PO ×2 (13:36→17:13)
--- NOTE | 2023-09-21 13:42 | PM.CNCAR ---
Assessment and Plan Assessment and plan (1) NSTEMI (non-ST elevated myocardial infarction): Code(s): I21.4 - Non-ST elevation (NSTEMI) myocardial infarction Status: Acute Assessment and Plan: Although chest pain has atypical features (gets better with food at times, is very clearly reproducible on physical examination), elevated troponin levels and regional wall motion abnormalities on echocardiogram (which were not noted on previous echocardiogram from 2021), concern for underlying obstructive coronary artery disease. Discussed cardiac catheterization with the patient and her . Discussed indication for the procedure, procedure details, risks vs benefits. Discussed with patient that she is at higher risk for contrast induced nephropathy given her CKD stage 4. At this time, patient does not wish to pursue cardiac catheterization. She tells me that she does not want to do anything that may worsen her renal function. Therefore, will proceed with medical therapy at this time. Continue with ASA 81mg once daily. Continue Heparin drip. Will start Plavix. Continue statin (will see if we can change it to high intensity statin pending workup for transaminitis). Patient currently is chest pain free -- only gets chest pain with palpitation of chest wall on examination. (2) Hyperkalemia: Code(s): E87.5 - Hyperkalemia Status: Acute Assessment and Plan: Potassium is 6.7. Management as per hospitalist. Her Losartan has been discontinued. (3) Acute kidney injury superimposed on chronic kidney disease: Code(s): N17.9 - Acute kidney failure, unspecified; N18.9 - Chronic kidney disease, unspecified Status: Acute Assessment and Plan: Stage IV CKD. SCr 3 on admission, which appears to be above her baseline. Follows with Nephrology as an outpatient. (4) Type 2 diabetes mellitus with hyperglycemia: Code(s): E11.65 - Type 2 diabetes mellitus with hyperglycemia Status: Chronic Assessment and Plan: Management as per primary team. (5) Hypertension, essential: Code(s): I10 - Essential (primary) hypertension Status: Chronic Assessment and Plan: Losartan on hold due to hyperkalemia. (6) Hyperlipidemia, unspecified: Qualifiers: Hyperlipidemia type: unspecified Qualified Code(s): E78.5 - Hyperlipidemia, unspecified Code(s): E78.5 - Hyperlipidemia, unspecified Status: Chronic Assessment and Plan: Continue statin (will see if we can change it to high intensity statin pending workup for transaminitis). (7) Coronary artery disease involving [place] heart without angina pectoris: Code(s): I25.10 - Atherosclerotic heart disease of [place] coronary artery without angina pectoris Status: Acute Assessment and Plan: As above. Plan Recommendations and plan discussed with Hospitalist. Patient to follow up with her primary Bail Bonding Agent at [facility] after hospital discharge. History of Present Illness History of Present Illness Consult date/time: 09/21/23 13:42 Requesting physician: Chidi Galvez MD Consult reason: chest pain Reason For Visit: Chest Pain,Abdominal Pain,Elevated Troponiin Narrative: We are consulted for chest pain, elevated troponins. This is an 78 year old female with coronary artery disease s/p LAD/Diagonal bifurcation stents in 2017, hypertension, hyperlipidemia, chronic kidney disease stage IV, type 2 diabetes mellitus, chronic pancreatitis who initially presented to [facility] ER on 09/18 with epigastric abdominal pain and chest pain. Troponins were negative at that time. EKG without ischemic changes. Admission was recommended at that time, however, patient declined. Patient represented to [facility] ER last night with chest pain and abdominal pain. Initial troponin negative, however, repeat positive at 0.074 with third level at 0.095. CT abdomen and pelvis shows chronic pancreatitis, diffuse hepa
[2023-09-21] MEDS: CLOPIDOGREL BISULFATE 300 MG TABLET 600 MG PO (14:15)
[2023-09-21 15:32] LABS: Anion Gap 8 mmol/L (4-12); Blood Urea Nitrogen 60 mg/dL (7-17); Calcium 9.9 mg/dL (8.4-10.2); Carbon Dioxide 22 mmol/L (22-30); Chloride 110 mmol/L (98-107); Estimated CRCL calculation 16 ml/min; Estimated Glomerular Filt Rate 15; Glucose 172 mg/dL (65-110); Potassium 5.6 mmol/L (3.4-5.0); Sodium 140 mmol/L (137-145)
--- NOTE | 2023-09-21 15:57 | PC.NURSE ---
Updated Dr. Ramirez on 1500 potassium level. New orders for Lokelma 5mg PO BID and repeat BMP at 2100.
[2023-09-21 16:51] LABS: Partial Thromboplastin Time 109.4 Seconds (22.3-36.8)
[2023-09-21] MEDS: PANTOPRAZOLE 40 MG TABLET PO (17:15)
[2023-09-21 17:33] LABS: Glucose Point of Care 173 mg/dl (65-105)
--- NOTE | 2023-09-21 18:32 | PC.NURSE ---
Dr. Ramirez updated with repeat potassium and troponin blood draw times. New order to draw all labs at the same time. Since the PTT has to be drawn at 2300 per heparin protocol, BMP and Troponin lab draw times were changed to 2300 as well.
[2023-09-21 20:58] LABS: Glucose Point of Care 148 mg/dl (65-105)
[2023-09-22] VITALS (17 sets, daily range): BP systolic 134–158; BP diastolic 62–91; PULSE 79–102; RESP 18–22; TEMP 36.2–37.1; O2SAT 95–99
[2023-09-22 00:04] LABS: Partial Thromboplastin Time 67.5 Seconds (22.3-36.8)
[2023-09-22 00:11] LABS: Anion Gap 6 mmol/L (4-12); Blood Urea Nitrogen 57 mg/dL (7-17); Calcium 9.7 mg/dL (8.4-10.2); Carbon Dioxide 23 mmol/L (22-30); Chloride 110 mmol/L (98-107); Estimated CRCL calculation 16 ml/min; Estimated Glomerular Filt Rate 15; Glucose 179 mg/dL (65-110); Potassium 5.1 mmol/L (3.4-5.0); Sodium 139 mmol/L (137-145)
[2023-09-22] MEDS: HEPARIN SODIUM 5,000 UNITS/ML VIAL 3000 UNITS IV PUSH ×2 (01:01→08:31)
[2023-09-22 04:44] LABS: Basophils Percent Auto 0.3 % (0.2-1.2); Eosinophils Absolute Auto 0.1 K/mm3 (0-0.3); Eosinophils Percent Auto 0.7 % (0-4.4); Hematocrit 34.2 % (37.0-47.0); Hemoglobin 10.2 g/dL (12.0-15.0); Immature Granulocyte Absolute 0.06 K/mm3 (0.00-0.031); Immature Granulocyte Percent A 0.7 % (0-0.5); Lymphocytes Absolute Auto 1.26 K/mm3 (0.9-3.2); Mean Corpuscular HGB Conc 29.8 g/dl (32-36); Mean Corpuscular Hemoglobin 27.8 pg (26-34); Mean Corpuscular Volume 93.2 fl (80-100); Mean Platelet Volume 10.1 fl (7.4-10.4); Monocytes Absolute Auto 0.6 K/mm3 (0.1-0.6); Monocytes Percent Auto 6.4 % (2.6-8.5); Neutrophils Percent Auto 77.9 % (45.5-73.1); Platelet Count Result 211 k/mm3 (150-375); Red Blood Count 3.67 M/mm3 (4.2-5.4); Red Cell Distribution Width 16.6 % (11.5-14.5)
[2023-09-22 04:51] LABS: Ammonia < 9 umol/L (9-30)
[2023-09-22 04:52] LABS: Alanine Aminotransferase 158 U/L (6-35); Alkaline Phosphatase 158 U/L (38-126); Anion Gap 7 mmol/L (4-12); Aspartate Amino Transferase 130 U/L (14-36); Bilirubin,Total 0.5 mg/dL (0.2-1.3); Blood Urea Nitrogen 56 mg/dL (7-17); Calcium 9.5 mg/dL (8.4-10.2); Carbon Dioxide 24 mmol/L (22-30); Chloride 109 mmol/L (98-107); Estimated CRCL calculation 16 ml/min; Estimated Glomerular Filt Rate 15; Glucose 191 mg/dL (65-110); Magnesium 2.6 mg/dL (1.6-2.3); Potassium 5.2 mmol/L (3.4-5.0); Sodium 140 mmol/L (137-145)
[2023-09-22 05:45] LABS: Vitamin D 25 Hydroxy 52.9 ng/mL
[2023-09-22 05:46] LABS: Procalcitonin 0.7 ng/mL
[2023-09-22 07:48] LABS: Glucose Point of Care 204 mg/dl (65-105)
[2023-09-22] MEDS: HEPARIN SOD/D5W 100 UNITS/ML 25,000 UNITS/250 ML BAG 10 UNITS IV CONT (08:33)
[2023-09-22] MEDS: amLODIPine BESYLATE 5 MG TABLET 10 MG PO (08:34)
[2023-09-22] MEDS: CLOPIDOGREL BISULFATE 75 MG TABLET PO (08:34)
[2023-09-22] MEDS: ASPIRIN 81 MG CHEWABLE TABLET PO (08:34)
[2023-09-22] MEDS: PANTOPRAZOLE 40 MG TABLET PO ×2 (08:34→16:51)
[2023-09-22] MEDS: SIMVASTATIN 20 MG TABLET PO (08:34)
--- NOTE | 2023-09-22 10:05 | PM.CNNEP ---
Assessment and Plan Assessment and plan (1) Chest pain: Code(s): R07.9 - Chest pain, unspecified Status: Acute Assessment and Plan: the patient had significant chest pain yesterday. She says today that she has not had any since yesterday. She is of course on Plavix plus a heparin drip. Her troponins peaked at 10.7 and today is 9.46. She saw Dr. Whaley who wants to do cardiac catheterization understandably because of the elevated troponins And the risk of a bigger heart attack. The patient however refuses because she is afraid that the contrast may affect her kidneys. The patient in and I and the discussed at length. It is true that her GFR is at baseline 18-20 and is actually a little bit lower today at 15. So she is at somewhat high risk for contrast related nephropathy. We reviewed the risks involved in the decision making process. If she does the cardiac catheterization, then there is a chance that nothing may happen to the kidneys. There is also a chance that her GFR may drop a little bit temporarily and then go back to her baseline. There is a chance that the GFR may drop a bit and then stay lower. There is also a chance that the GFR may go low enough that she needs dialysis. If she had to start dialysis she might end up on chronic dialysis because of her substantial chronic kidney disease. If she does not do cardiac catheterization and she might do okay with medical therapy. There is a chance that she could have another heart attack and this could result in lower ejection fraction which itself would also be hard on the kidneys. For now the patient does not seem to be having any chest pain. She will talk more with Dr. Whaley about the risk of not doing the cardiac catheterization (2) Chronic kidney disease, stage 4 (severe): Code(s): N18.4 - Chronic kidney disease, stage 4 (severe) Status: Acute Assessment and Plan: the patient has chronic kidney disease stage 4. Her baseline creatinine runs anywhere from 18-24. Recently it has been on the lower side of this range. This is due to diabetes, hypertension, and possibly occult vascular disease in the kidneys. She does snore as well she has been refusing a sleep test. Her GFR is down a bit at 15. She might be a little bit dehydrated. . She is eating and drinking well. Will repeat the creatinine tomorrow (3) Type 2 diabetes mellitus with chronic kidney disease, without long-term current use of insulin: Code(s): E11.22 - Type 2 diabetes mellitus with diabetic chronic kidney disease Status: Acute Assessment and Plan: on insulin sliding scale and Accu-Cheks. Management per hospitalist (4) Hypertension, essential: Code(s): I10 - Essential (primary) hypertension Status: Chronic Assessment and Plan: systolic blood pressure between 130 and 160. The patient is on hydrochlorothiazide and amlodipine. She was on losartan but this was discontinued because of her potassium. Heart rate is 98. Will start the patient on carvedilol. (5) Hyperlipidemia, unspecified: Qualifiers: Hyperlipidemia type: unspecified Qualified Code(s): E78.5 - Hyperlipidemia, unspecified Code(s): E78.5 - Hyperlipidemia, unspecified Status: Chronic Assessment and Plan: The patient is on a statin (6) Coronary artery disease: Code(s): I25.10 - Atherosclerotic heart disease of [place] coronary artery without angina pectoris Status: Acute Assessment and Plan: the patient had a stent placed in 2016 History of Present Illness Reason for Consult Consult date: 09/23/23 Chief Complaint Chief complaint: Chest Pain,Abdominal Pain,Elevated Troponiin History of Present Illness Narrative: Kori is a very pleasant 78-year-old lady who has multiple medical problems including chronic kidney disease stage 4 with a baseline creatinine of around 18-20, coronary artery disease stat
[2023-09-22] MEDS: SODIUM ZIRCONIUM CYCLOSILICATE 5 GM POWD.PACK PO ×2 (10:18→18:23)
[2023-09-22] MEDS: CYANOCOBALAMIN 1,000 MCG TABLET 1000 MCG PO (11:44)
[2023-09-22] MEDS: OMEGA 3 POLYUNSAT FATTY ACIDS 1 GM CAP PO (11:44)
[2023-09-22] MEDS: hydroCHLOROthiazide 25 MG TABLET PO (11:45)
[2023-09-22] MEDS: carvediloL 6.25 MG TABLET PO ×2 (11:45→21:40)
--- NOTE | 2023-09-22 11:56 | PM.PNCARD ---
Progress Note: A&P Assessment and Plan (1) NSTEMI (non-ST elevated myocardial infarction): Code(s): I21.4 - Non-ST elevation (NSTEMI) myocardial infarction Status: Acute Assessment and Plan: Although chest pain has atypical features (gets better with food at times, is very clearly reproducible on physical examination), elevated troponin levels with peak at 10.7 and regional wall motion abnormalities on echocardiogram (which were not noted on previous echocardiogram from 2021), concern that patient had an acute myocardial infarction and has underlying obstructive coronary artery disease. Discussed cardiac catheterization with the patient and her . Discussed indication for the procedure, procedure details, risks vs benefits. Discussed with patient that she is at higher risk for contrast induced nephropathy given her CKD stage 4. On 09/20, patient stated she does not wish to pursue cardiac catheterization. Today, patient states she will think about it and let us know her decision. Continue with medical therapy at this time. Continue with ASA 81mg once daily. Continue Heparin drip for total of 48 hours. Started Plavix. Will change Simvastatin to high intensity statin. Patient currently is chest pain free -- only gets chest pain with palpitation of chest wall on examination. (2) Hyperkalemia: Code(s): E87.5 - Hyperkalemia Status: Acute Assessment and Plan: Potassium is 6.7 on 09/21. Improved with treatment. Management as per hospitalist. Her Losartan has been discontinued. (3) Acute kidney injury superimposed on chronic kidney disease: Code(s): N17.9 - Acute kidney failure, unspecified; N18.9 - Chronic kidney disease, unspecified Status: Acute Assessment and Plan: Stage IV CKD. SCr 3 on admission, which appears to be above her baseline. Follows with Nephrology as an outpatient. Dr. Ramirez consulted. (4) Type 2 diabetes mellitus with chronic kidney disease, without long-term current use of insulin: Code(s): E11.22 - Type 2 diabetes mellitus with diabetic chronic kidney disease Status: Acute Assessment and Plan: Management as per primary team. (5) Hypertension, essential: Code(s): I10 - Essential (primary) hypertension Status: Chronic Assessment and Plan: Losartan stopped due to hyperkalemia. Management of hypertension as per Nephrology and Hospitalist. (6) Hyperlipidemia, unspecified: Qualifiers: Hyperlipidemia type: unspecified Qualified Code(s): E78.5 - Hyperlipidemia, unspecified Code(s): E78.5 - Hyperlipidemia, unspecified Status: Chronic Assessment and Plan: Will switch Simvastatin to Atorvastatin for high intensity dose given NSTEMI, CAD. (7) Coronary artery disease: Code(s): I25.10 - Atherosclerotic heart disease of [place] coronary artery without angina pectoris Status: Acute Assessment and Plan: As above. Plan Recommendations and plan discussed with Hospitalist. Patient to follow up with her primary Account Development Manager at [facility] after hospital discharge. Subjective Date/time seen: 09/22/23 11:56 Interval history: Reason for visit: NSTEMI HPI: We are consulted for chest pain, elevated troponins. This is an 78 year old female with coronary artery disease s/p LAD/Diagonal bifurcation stents in 2017, hypertension, hyperlipidemia, chronic kidney disease stage IV, type 2 diabetes mellitus, chronic pancreatitis who initially presented to [facility] on 09/18 with epigastric abdominal pain and chest pain. Troponins were negative at that time. EKG without ischemic changes. Admission was recommended at that time, however, patient declined. Patient represented to [facility] last night with chest pain and abdominal pain. Initial troponin negative, however, repeat positive at 0.074 with third level at 0.095. CT abdomen and pelvis shows chronic pancreatitis, diffuse hepatic steatos
[2023-09-22 12:20] LABS: Glucose Point of Care 203 mg/dl (65-105)
[2023-09-22] MEDS: INSULIN ASPART (*BKC) 100 UNITS/ML SUB-Q ×2 (12:22→16:51)
[2023-09-22 15:48] LABS: Glucose Point of Care 219 mg/dl (65-105)
--- NOTE | 2023-09-22 17:09 | PM.IMPN ---
Progress Note: A&P Assessment and Plan (1) Neurocognitive disorder: Code(s): R41.9 - Unspecified symptoms and signs involving cognitive functions and awareness Status: Acute (2) Chronic kidney disease, stage 4 (severe): Code(s): N18.4 - Chronic kidney disease, stage 4 (severe) Status: Acute (3) NSTEMI (non-ST elevated myocardial infarction): Code(s): I21.4 - Non-ST elevation (NSTEMI) myocardial infarction Status: Acute Plan 78-year-old female with PMH CAD status post stent, hypertension, hyperlipidemia, abe-djlqhsa-fggrjhege diabetes mellitus, chronic pancreatitis (thought to be 2/2 to Mounjaro use previously), CKD stage IV, diastolic heart failure compensated on diuretics, PAD, diabetic neuropathy presents with chest pain And abdominal pain. cardiology nephrology consulted. Appreciate recommendations. At this moment the patient does not want to pursue cardiac catheterization. Continue to trend her renal function. Unimpeded 10.7. Surface echocardiogram demonstrates regional wall motion abnormality. She is currently chest pain-free and lengthy discussions were held with Cardiology and Nephrology. Currently optimizing medical therapy with aspirin and Plavix. Heparin drip continued for now to total 48 hours. With statin changed to high-intensity statin. The patient has transaminitis but appears to be resolving it might have been cardiac related. The patient is okay with this. Check a hepatitis screen. Was considering pancreatic enzyme replacement. However the patient reports normal stools and her abdominal pain has resolved. More likely due to the above issues. Continue to monitor. chronic pancreatitis was thought due to Mounjaro use which is now discontinued. Lipase negative on admission. Triglycerides 300. [place] 3 polyunsaturated fatty acid started to help prevent any further worsening of chronic pancreatitis. Her last endocrinology note reported patient was on Lovaza 2 g twice a day this was not on her home med list and she does not know about it. Leukocytosis resolved, this was likely reactive. No evidence of infection via chest x-ray CT abdomen pelvis and UA. Patient has a history of hyperkalemia and losartan was started outpatient in order to help blood pressure and kidneys, however she presented with a potassium level of 6.7. Status post albuterol, calcium carbonate, Lasix, Lokelma, insulin and dextrose it has come down very nicely to 5.2. Losartan has been discontinued. If her hyperkalemia completely resolves can consider discontinue Lokelma but you for now at 5 mg p.o. b.i.d.. Will check another BMP now to assess a repeat level. Chronic anemia. Check FOB T iron profile and ferritin. History of snoring and has refused sleep test multiple times. History of hypertension. Currently At goal with amlodipine and hydrochlorothiazide. KIDNEY TRIMMER losartan discontinued. Rgo-kvpfbje-orttyttjr diabetes mellitus. hold home KIDNEY TRIMMER glipizide. -glucose monitoring ACHS, LDISS, hypoglycemia protocol. Sugars at goal. Heparin GTT Protonix full code stable on telemetry floor. Note to the patient: The 21st Century Cures Act makes medical notes like these available to patients in the interest of transparency. Please be advised this is a medical document. It is intended for zede-vn-ppgy communication. It is written in medical language and may contain unfamiliar abbreviations or verbiage. Components may appear blunt or direct. Medical documents are intended to carry relevant information, facts as evident, and the clinical opinion of the practitioner at the time of the encounter. This note was generated by a speech recognition system and may contain inherent errors or omissions not intended by the user. Grammatical errors, random word insertions, deletions, pronoun errors and incomplete sentences are occasional consequences of this technology due to software
[2023-09-22 17:55] LABS: Anion Gap 6 mmol/L (4-12); Blood Urea Nitrogen 55 mg/dL (7-17); Calcium 9.2 mg/dL (8.4-10.2); Carbon Dioxide 23 mmol/L (22-30); Chloride 110 mmol/L (98-107); Estimated CRCL calculation 16 ml/min; Estimated Glomerular Filt Rate 15; Glucose 221 mg/dL (65-110); Sodium 139 mmol/L (137-145)
[2023-09-23] VITALS (14 sets, daily range): BP systolic 136–158; BP diastolic 60–71; PULSE 62–94; RESP 16–22; TEMP 36.9–37.3; O2SAT 93–98
[2023-09-23 00:48] LABS: Glucose Point of Care 173 mg/dl (65-105)
[2023-09-23 05:10] LABS: Hematocrit 33.1 % (37.0-47.0); Hemoglobin 9.8 g/dL (12.0-15.0); Mean Corpuscular HGB Conc 29.6 g/dl (32-36); Mean Corpuscular Hemoglobin 27.8 pg (26-34); Mean Corpuscular Volume 93.8 fl (80-100); Mean Platelet Volume 10.5 fl (7.4-10.4); Platelet Count Result 216 k/mm3 (150-375); Red Blood Count 3.53 M/mm3 (4.2-5.4); Red Cell Distribution Width 16.9 % (11.5-14.5); White Blood Count 8.7 K/mm3 (4.5-10.0)
[2023-09-23 05:23] LABS: Partial Thromboplastin Time 77.5 Seconds (22.3-36.8)
[2023-09-23 05:31] LABS: Alanine Aminotransferase 98 U/L (6-35); Albumin Level 3.8 g/dL (3.5-5.1); Alkaline Phosphatase 144 U/L (38-126); Anion Gap 8 mmol/L (4-12); Aspartate Amino Transferase 50 U/L (14-36); Bilirubin,Total 0.3 mg/dL (0.2-1.3); Blood Urea Nitrogen 56 mg/dL (7-17); Calcium 9.1 mg/dL (8.4-10.2); Carbon Dioxide 23 mmol/L (22-30); Chloride 107 mmol/L (98-107); Estimated CRCL calculation 15 ml/min; Estimated Glomerular Filt Rate 14; Glucose 161 mg/dL (65-110); Magnesium 2.5 mg/dL (1.6-2.3); Phosphorus 3.9 mg/dL (2.5-4.5); Potassium 4.7 mmol/L (3.4-5.0); Sodium 138 mmol/L (137-145)
[2023-09-23 05:52] LABS: Hepatitis B Surface Antigen Negative (Negative)
[2023-09-23 05:58] LABS: HAV RESULT Negative (Negative); Hepatitis B Core IgM Result Negative (Negative)
[2023-09-23 06:10] LABS: Hepatitis C Virus Antibody Negative (Negative)
[2023-09-23 07:41] LABS: Glucose Point of Care 196 mg/dl (65-105)
--- NOTE | 2023-09-23 07:56 | PCCARD ---
TIMED EKG ORDERED FOR 19:00 09/21/23 WAS NOT DONE BY IMU. CARDIAC TELEMETRY WAS CHARTED INSTEAD. CANCELLING THIS ORDER 'NOT DONE'
[2023-09-23] MEDS: carvediloL 6.25 MG TABLET PO ×2 (08:09→21:58)
[2023-09-23] MEDS: ATORVASTATIN 40 MG TABLET 80 MG PO (08:09)
[2023-09-23] MEDS: CLOPIDOGREL BISULFATE 75 MG TABLET PO (08:09)
[2023-09-23] MEDS: ASPIRIN 81 MG CHEWABLE TABLET PO (08:09)
[2023-09-23] MEDS: PANTOPRAZOLE 40 MG TABLET PO ×2 (08:09→17:31)
[2023-09-23] MEDS: amLODIPine BESYLATE 5 MG TABLET 10 MG PO (08:15)
--- NOTE | 2023-09-23 09:01 | PM.PNNEP ---
Progress Note: A&P Assessment and Plan (1) Chest pain: Code(s): R07.9 - Chest pain, unspecified Status: Acute Assessment and Plan: the patient had significant chest pain on Wednesday.. She says today that she has not had any since. Troponins peaked and were on their way down yesterday morning. She and Dr. Whaley discussed cardiac catheterization and the patient want to hold off. The cardiac catheterization comes with some risk of nephrotoxicity of course because of the patient's low GFR. I discussed with Dr. Whaley this morning. Since the patient has had no chest pain in the last couple of days she says that it is reasonable to hold off on the cardiac catheterization and this can always be done as an outpatient if the patient changes her mind. Her GFR is lower now than it was last time I saw her. She might be a little behind in fluid. I am going to give her some IV fluids to see if we can get the GFR back up so that in the event she needs a cardiac catheterization possibly would be less risky. (2) Chronic kidney disease, stage 4 (severe): Code(s): N18.4 - Chronic kidney disease, stage 4 (severe) Status: Acute Assessment and Plan: the patient has chronic kidney disease stage 4. Her baseline creatinine runs anywhere from 18-24. Recently it has been on the lower side of this range. This is due to diabetes, hypertension, and possibly occult vascular disease in the kidneys. She does snore as well she has been refusing a sleep test. Her GFR was down a bit at 15. Today it is a little lower at 14. I am going to hold her hydrochlorothiazide and give her little bit IV fluids to see if we can get the GFR up a little bit (3) Type 2 diabetes mellitus with chronic kidney disease, without long-term current use of insulin: Code(s): E11.22 - Type 2 diabetes mellitus with diabetic chronic kidney disease Status: Acute Assessment and Plan: on insulin sliding scale and Accu-Cheks. Management per hospitalist (4) Hypertension, essential: Code(s): I10 - Essential (primary) hypertension Status: Chronic Assessment and Plan: systolic blood pressure between 130 and 160. The patient is on hydrochlorothiazide, carvedilol, and amlodipine. She was on losartan but this was discontinued because of her potassium. Hold off on hydrochlorothiazide (5) Hyperlipidemia, unspecified: Qualifiers: Hyperlipidemia type: unspecified Qualified Code(s): E78.5 - Hyperlipidemia, unspecified Code(s): E78.5 - Hyperlipidemia, unspecified Status: Chronic Assessment and Plan: The patient is on a statin (6) Coronary artery disease: Code(s): I25.10 - Atherosclerotic heart disease of [place] coronary artery without angina pectoris Status: Acute Assessment and Plan: the patient had a stent placed in 2017 Subjective Date/time seen: 09/23/23 09:01 Interval history: Then is feeling okay. She has not had any chest pain. Review of Systems Cardiovascular: Cardiovascular: Reports no additional cardiovascular complaints Respiratory: Respiratory: Reports no additional respiratory complaints Gastrointestinal: Gastrointestinal: Reports no additional gastrointestinal complaints Genitourinary: Genitourinary: Reports no additional female genitourinary complaints Exam Narrative: WDWN in NAD skin no rash head ncat lungs clear cor reg no rub abd BS+ nontender and soft ext trace bilateral edema. Objective Data Vital Signs Vital Signs: Vital Signs - 24 hr 09/22/23 10:00 09/22/23 11:42 09/22/23 11:45 Temperature 97.3 F L Pulse Rate 87 88 93 Respiratory Rate 18 Blood Pressure 140/91 H Pulse Oximetry 97 Oxygen Delivery 09/22/23 12:00 09/22/23 12:00 09/22/23 14:00 Temperature Pulse Rate 91 90 Respiratory Rate Blood Pressure Pulse Oximetry Oxygen Delivery Room Air 09/22/23 16:0
[2023-09-23] MEDS: SODIUM CHLORIDE 0.9% IV 1,000 ML 75 ML IV CONT (09:34)
--- NOTE | 2023-09-23 11:00 | PM.IMPN ---
Progress Note: A&P Assessment and Plan (1) Neurocognitive disorder: Code(s): R41.9 - Unspecified symptoms and signs involving cognitive functions and awareness Status: Acute (2) Chronic kidney disease, stage 4 (severe): Code(s): N18.4 - Chronic kidney disease, stage 4 (severe) Status: Acute (3) NSTEMI (non-ST elevated myocardial infarction): Code(s): I21.4 - Non-ST elevation (NSTEMI) myocardial infarction Status: Acute Plan 78-year-old female with PMH CAD status post stent, hypertension, hyperlipidemia, ydb-xixelbm-wibzhjefn diabetes mellitus, chronic pancreatitis (thought to be 2/2 to Mounjaro use previously), CKD stage IV, diastolic heart failure compensated on diuretics, PAD, diabetic neuropathy presents with chest pain And abdominal pain. NSTEMI cardiology nephrology consulted. Appreciate recommendations. At this moment the patient does not want to pursue cardiac catheterization. Continue to trend her renal function. Unimpeded 10.7. Surface echocardiogram demonstrates regional wall motion abnormality. She is currently chest pain-free and lengthy discussions were held with Cardiology and Nephrology. Currently optimizing medical therapy with aspirin and Plavix. Heparin drip continued for now to total 48 hours. With statin changed to high-intensity statin. The patient has transaminitis but appears to be resolving it might have been cardiac related. The patient is okay with this. Check a hepatitis screen. Chronic pancreatitis Was considering pancreatic enzyme replacement. However the patient reports normal stools and her abdominal pain has resolved. More likely due to the above issues. Continue to monitor. chronic pancreatitis was thought due to Mounjaro use which is now discontinued. Lipase negative on admission. Triglycerides 300. [place] 3 polyunsaturated fatty acid started to help prevent any further worsening of chronic pancreatitis. Her last endocrinology note reported patient was on Lovaza 2 g twice a day this was not on her home med list and she does not know about it. CKD stage 4 Start IV fluid per wood heel flap trimmer Follow-up BMP Avoid nephrotoxic medication UTI Patient has leukocytosis POA resolve Urine culture grows E coli start Omnicef b.i.d. p.o. per ID pharmacist recommendation Hyperkalemia Patient has a history of hyperkalemia and losartan was started outpatient in order to help blood pressure and kidneys, however she presented with a potassium level of 6.7. Status post albuterol, calcium carbonate, Lasix, Lokelma, insulin and dextrose it has come down very nicely to 5.2. Losartan has been discontinued. Hypokalemia resolved, potassium 4/7 Discontinue Lokelma Chronic anemia. Check FOB T iron profile and ferritin. History of snoring and has refused sleep test multiple times. History of hypertension. Currently At goal with amlodipine and hydrochlorothiazide. STONE SANDBLASTER losartan discontinued. Sai-qwmjkes-uiedsrlmg diabetes mellitus. hold home STONE SANDBLASTER glipizide. -glucose monitoring ACHS, LDISS, hypoglycemia protocol. Sugars at goal. Heparin GTT Protonix full code stable on telemetry floor. Note to the patient: The 21st Century Cures Act makes medical notes like these available to patients in the interest of transparency. Please be advised this is a medical document. It is intended for elnb-yg-regr communication. It is written in medical language and may contain unfamiliar abbreviations or verbiage. Components may appear blunt or direct. Medical documents are intended to carry relevant information, facts as evident, and the clinical opinion of the practitioner at the time of the encounter. This note was generated by a speech recognition system and may contain inherent errors or omissions not intended by the user. Grammatical errors, random word insertions, deletions, pronoun errors and incomplete sentences are occasion
[2023-09-23] MEDS: OMEGA 3 POLYUNSAT FATTY ACIDS 1 GM CAP PO (11:24)
[2023-09-23] MEDS: CYANOCOBALAMIN 1,000 MCG TABLET 1000 MCG PO (11:24)
[2023-09-23 11:33] LABS: Glucose Point of Care 186 mg/dl (65-105)
[2023-09-23 11:38] LABS: Rapid Plasma Reagin Non-Reactive (NonReactive)
[2023-09-23] MEDS: CEFDINIR 300 MG CAPSULE PO (12:28)
--- NOTE | 2023-09-23 15:07 | PM.PNCARD ---
Progress Note: A&P Assessment and Plan (1) NSTEMI (non-ST elevated myocardial infarction): Code(s): I21.4 - Non-ST elevation (NSTEMI) myocardial infarction Status: Acute Assessment and Plan: Although chest pain has atypical features (gets better with food at times, is very clearly reproducible on physical examination), elevated troponin levels with peak at 10.7 and regional wall motion abnormalities on echocardiogram (which were not noted on previous echocardiogram from 2021), concern that patient had an acute myocardial infarction and has underlying obstructive coronary artery disease. Discussed cardiac catheterization with the patient and her . Discussed indication for the procedure, procedure details, risks vs benefits. Discussed with patient that she is at higher risk for contrast induced nephropathy given her CKD stage 4. On 09/20, patient stated she did not wish to pursue cardiac catheterization. However, on 09/21, patient was reconsidering cath and wanted some time to think about it. Today, I had a discussion with Dr. Ramirez, and given her NATE on CKD, since patient is chest pain free now, troponins have down trended, and appears that patient has already completed her myocardial infarction and with no recurrence of chest pain since admission, we will pursue medical management of NSTEMI. Continue with ASA 81mg once daily. Completed Heparin drip for total of 48 hours. Started Plavix 09/21. Continue high intensity statin. Continue beta sunny. No plans for inpatient cardiac catheterization at this time. Patient to follow up with her primary front end java developer after hospital discharge where they may consider outpatient cardiac catheterization. (2) Hyperkalemia: Code(s): E87.5 - Hyperkalemia Status: Acute Assessment and Plan: Potassium was 6.7 on 09/21. Improved with treatment. Management as per hospitalist. Her Losartan has been discontinued. (3) Acute kidney injury superimposed on chronic kidney disease: Code(s): N17.9 - Acute kidney failure, unspecified; N18.9 - Chronic kidney disease, unspecified Status: Acute Assessment and Plan: Stage IV CKD. SCr 3 on admission, which appears to be above her baseline. Follows with Nephrology as an outpatient. Dr. Ramirez consulted. Patient tells me that she would not want to be on dialysis. (4) Type 2 diabetes mellitus with chronic kidney disease, without long-term current use of insulin: Code(s): E11.22 - Type 2 diabetes mellitus with diabetic chronic kidney disease Status: Acute Assessment and Plan: Management as per primary team. (5) Hypertension, essential: Code(s): I10 - Essential (primary) hypertension Status: Chronic Assessment and Plan: Losartan stopped due to hyperkalemia. Management of hypertension as per Nephrology and Hospitalist. (6) Hyperlipidemia, unspecified: Qualifiers: Hyperlipidemia type: unspecified Qualified Code(s): E78.5 - Hyperlipidemia, unspecified Code(s): E78.5 - Hyperlipidemia, unspecified Status: Chronic Assessment and Plan: Switched Simvastatin to Atorvastatin for high intensity dose given NSTEMI, CAD. (7) Coronary artery disease: Code(s): I25.10 - Atherosclerotic heart disease of [place] coronary artery without angina pectoris Status: Acute Assessment and Plan: As above. Plan Recommendations and plan discussed with Hospitalist. Patient to follow up with her primary Peer Health Promoter at [facility] after hospital discharge. Subjective Date/time seen: 09/23/23 15:07 Interval history: Reason for visit: NSTEMI HPI: We are consulted for chest pain, elevated troponins. This is an 78 year old female with coronary artery disease s/p LAD/Diagonal bifurcation stents in 2017, hypertension, hyperlipidemia, chronic kidney disease stage IV, type 2 diabetes mellitus, chronic pancreatitis who initially presented to [facility]
[2023-09-23 16:19] LABS: Glucose Point of Care 172 mg/dl (65-105)
[2023-09-23 20:17] LABS: Glucose Point of Care 219 mg/dl (65-105)
[2023-09-23] MEDS: INSULIN ASPART (*BKC) 100 UNITS/ML SUB-Q (21:58)
[2023-09-24 04:43] VITALS: BP 156/74; PULSE 87; RESP 16; TEMP 36.7; O2SAT 100
[2023-09-24 04:47] LABS: Albumin Level 3.5 g/dL (3.5-5.1); Anion Gap 7 mmol/L (4-12); Blood Urea Nitrogen 57 mg/dL (7-17); Calcium 8.7 mg/dL (8.4-10.2); Carbon Dioxide 24 mmol/L (22-30); Chloride 110 mmol/L (98-107); Estimated CRCL calculation 16 ml/min; Estimated Glomerular Filt Rate 15; Glucose 147 mg/dL (65-110); Potassium 4.4 mmol/L (3.4-5.0); Sodium 141 mmol/L (137-145)
[2023-09-24 07:01] VITALS: BP 145/68; PULSE 83; RESP 16; TEMP 36.4; O2SAT 97
[2023-09-24 07:41] LABS: Glucose Point of Care 180 mg/dl (65-105)
[2023-09-24] MEDS: ATORVASTATIN 40 MG TABLET 80 MG PO (08:02)
[2023-09-24] MEDS: CYANOCOBALAMIN 1,000 MCG TABLET 1000 MCG PO (08:02)
[2023-09-24] MEDS: CLOPIDOGREL BISULFATE 75 MG TABLET PO (08:02)
[2023-09-24] MEDS: ASPIRIN 81 MG CHEWABLE TABLET PO (08:02)
[2023-09-24 08:03] VITALS: PULSE 83
[2023-09-24] MEDS: PANTOPRAZOLE 40 MG TABLET PO (08:03)
[2023-09-24] MEDS: CEFDINIR 300 MG CAPSULE PO (08:03)
[2023-09-24] MEDS: carvediloL 6.25 MG TABLET PO (08:03)
[2023-09-24] MEDS: OMEGA 3 POLYUNSAT FATTY ACIDS 1 GM CAP PO (08:03)
[2023-09-24] MEDS: amLODIPine BESYLATE 5 MG TABLET 10 MG PO (08:03)
[2023-09-24 09:54] VITALS: BP 148/65; PULSE 81; RESP 16; O2SAT 98
--- NOTE | 2023-09-24 10:39 | PM.IMPN ---
Progress Note: A&P Assessment and Plan (1) Neurocognitive disorder: Code(s): R41.9 - Unspecified symptoms and signs involving cognitive functions and awareness Status: Acute (2) Chronic kidney disease, stage 4 (severe): Code(s): N18.4 - Chronic kidney disease, stage 4 (severe) Status: Acute (3) NSTEMI (non-ST elevated myocardial infarction): Code(s): I21.4 - Non-ST elevation (NSTEMI) myocardial infarction Status: Acute Plan 78-year-old female with PMH CAD status post stent, hypertension, hyperlipidemia, uwt-xdnygjq-eavtcelzw diabetes mellitus, chronic pancreatitis (thought to be 2/2 to Mounjaro use previously), CKD stage IV, diastolic heart failure compensated on diuretics, PAD, diabetic neuropathy presents with chest pain And abdominal pain. NSTEMI cardiology nephrology consulted. Appreciate recommendations. At this moment the patient does not want to pursue cardiac catheterization. Continue to trend her renal function. Unimpeded 10.7. Surface echocardiogram demonstrates regional wall motion abnormality. She is currently chest pain-free and lengthy discussions were held with Cardiology and Nephrology. Currently optimizing medical therapy with aspirin and Plavix. Heparin drip continued for now to total 48 hours. With statin changed to high-intensity statin. The patient has transaminitis but appears to be resolving it might have been cardiac related. The patient is okay with this. Check a hepatitis screen. 09/23: Appreciate cardiology consultation. Cultures has no plans for inpatient cardiac catheterization at this time. Cardiology recommends that patient need to follow up with her primary product support specialist after hospital discharge where they may consider outpatient cardiac catheterization. Continue aspirin 81 mg daily p.o., plexus 7 5 mg daily p.o., Lipitor 80 mg daily p.o. Chronic pancreatitis Was considering pancreatic enzyme replacement. However the patient reports normal stools and her abdominal pain has resolved. More likely due to the above issues. Continue to monitor. chronic pancreatitis was thought due to Mounjaro use which is now discontinued. Lipase negative on admission. Triglycerides 300. [place] 3 polyunsaturated fatty acid started to help prevent any further worsening of chronic pancreatitis. Her last endocrinology note reported patient was on Lovaza 2 g twice a day this was not on her home med list and she does not know about it. CKD stage 4 Start IV fluid per metal tile setter Follow-up BMP Avoid nephrotoxic medication Creatinine is stable UTI Patient has leukocytosis POA resolve Urine culture grows E coli start Omnicef b.i.d. p.o. per ID pharmacist recommendation Hyperkalemia Patient has a history of hyperkalemia and losartan was started outpatient in order to help blood pressure and kidneys, however she presented with a potassium level of 6.7. Status post albuterol, calcium carbonate, Lasix, Lokelma, insulin and dextrose it has come down very nicely to 5.2. Losartan has been discontinued. Hypokalemia resolved, potassium 4/7 Discontinue Lokelma Chronic anemia. iron profile and ferritin. Within normal limit Hemoglobin stable History of snoring and has refused sleep test multiple times. History of hypertension. Currently At goal with amlodipine and hydrochlorothiazide. PVC LOADER losartan discontinued. Con-nsvzzyy-foywqzkfe diabetes mellitus. hold home PVC LOADER glipizide. -glucose monitoring ACHS, LDISS, hypoglycemia protocol. Sugars at goal. Heparin GTT Protonix full code stable on telemetry floor. Note to the patient: The 21st Century Cures Act makes medical notes like these available to patients in the interest of transparency. Please be advised this is a medical document. It is intended for qwcu-cj-yjps communication. It is written in medical language and may contain unfamiliar abbreviations or [employer]. Com
--- NOTE | 2023-09-24 10:54 | PM.DS ---
DS: Admitting Diagnosis Discharge Date 09/24/23 Admitting Diagnosis (1) Neurocognitive disorder: Code(s): R41.9 - Unspecified symptoms and signs involving cognitive functions and awareness Status: Acute (2) Chronic kidney disease, stage 4 (severe): Code(s): N18.4 - Chronic kidney disease, stage 4 (severe) Status: Acute (3) NSTEMI (non-ST elevated myocardial infarction): Code(s): I21.4 - Non-ST elevation (NSTEMI) myocardial infarction Status: Acute DS: Discharge Diagnosis Discharge Diagnosis (1) Neurocognitive disorder: Code(s): R41.9 - Unspecified symptoms and signs involving cognitive functions and awareness Status: Acute (2) Chronic kidney disease, stage 4 (severe): Code(s): N18.4 - Chronic kidney disease, stage 4 (severe) Status: Acute (3) NSTEMI (non-ST elevated myocardial infarction): Code(s): I21.4 - Non-ST elevation (NSTEMI) myocardial infarction Status: Acute DS: Summary Hospital Course Hospital Course: 78-year-old female with PMH CAD status post stent, hypertension, hyperlipidemia, [id number] diabetes mellitus, chronic pancreatitis (thought to be 2/2 to Mounjaro use previously), CKD stage IV, diastolic heart failure compensated on diuretics, PAD, diabetic neuropathy presents with chest pain And abdominal pain. NSTEMI cardiology nephrology consulted. Appreciate recommendations. At this moment the patient does not want to pursue cardiac catheterization. Continue to trend her renal function. Unimpeded 10.7. Surface echocardiogram demonstrates regional wall motion abnormality. She is currently chest pain-free and lengthy discussions were held with Cardiology and Nephrology. Currently optimizing medical therapy with aspirin and Plavix. Heparin drip continued for now to total 48 hours. With statin changed to high-intensity statin. The patient has transaminitis but appears to be resolving it might have been cardiac related. The patient is okay with this. Check a hepatitis screen. 09/23: Appreciate cardiology consultation. [facility] has no plans for inpatient cardiac catheterization at this time. Cardiology recommends that patient need to follow up with her primary electrician aircraft after hospital discharge where they may consider outpatient cardiac catheterization. Continue aspirin 81 mg daily p.o., plexus 7 5 mg daily p.o., Lipitor 80 mg daily p.o. Chronic pancreatitis Was considering pancreatic enzyme replacement. However the patient reports normal stools and her abdominal pain has resolved. More likely due to the above issues. Continue to monitor. chronic pancreatitis was thought due to Mounjaro use which is now discontinued. Lipase negative on admission. Triglycerides 300. [place] 3 polyunsaturated fatty acid started to help prevent any further worsening of chronic pancreatitis. Her last endocrinology note reported patient was on Lovaza 2 g twice a day this was not on her home med list and she does not know about it. 09/23: stable, no abd pain or diarrhea. CKD stage 4 Start IV fluid per vice president integrated Follow-up BMP Avoid nephrotoxic medication Creatinine is stable UTI Patient has leukocytosis POA resolve Urine culture grows E coli start Omnicef b.i.d. p.o. per ID pharmacist recommendation Hyperkalemia Patient has a history of hyperkalemia and losartan was started outpatient in order to help blood pressure and kidneys, however she presented with a potassium level of 6.7. Status post albuterol, calcium carbonate, Lasix, Lokelma, insulin and dextrose it has come down very nicely to 5.2. Losartan has been discontinued. Hypokalemia resolved, potassium /7 Discontinue Lokelma Chronic anemia. iron profile and ferritin. Within normal limit Hemoglobin stable History of snoring and has refused sleep test multiple times. History of hypertension. currently At goal with amlodipine and hydrochlorothi
[2023-09-24] MEDS: INSULIN ASPART (*BKC) 100 UNITS/ML SUB-Q (11:34)
[2023-09-24 12:28] LABS: Glucose Point of Care 239 mg/dl (65-105)
--- NOTE | 2023-09-24 12:39 | PM.PNCARD ---
Progress Note: A&P Assessment and Plan (1) NSTEMI (non-ST elevated myocardial infarction): Code(s): I21.4 - Non-ST elevation (NSTEMI) myocardial infarction Status: Acute Assessment and Plan: Although chest pain has atypical features (gets better with food at times, is very clearly reproducible on physical examination), elevated troponin levels with peak at 10.7 and regional wall motion abnormalities on echocardiogram (which were not noted on previous echocardiogram from 2021), concern that patient had an acute myocardial infarction and has underlying obstructive coronary artery disease. Discussed cardiac catheterization with the patient and her . Discussed indication for the procedure, procedure details, risks vs benefits. Discussed with patient that she is at higher risk for contrast induced nephropathy given her CKD stage 4. On 09/20, patient stated she did not wish to pursue cardiac catheterization. However, on 09/21, patient was reconsidering cath and wanted some time to think about it. Today, I had a discussion with Dr. Ramirez, and given her NATE on CKD, since patient is chest pain free now, troponins have down trended, and appears that patient has already completed her myocardial infarction and with no recurrence of chest pain since admission, we will pursue medical management of NSTEMI. Continue with ASA 81mg once daily. Completed Heparin drip for total of 48 hours. Started Plavix 09/21. Continue high intensity statin. Continue beta sunny. No plans for inpatient cardiac catheterization at this time. Patient to follow up with her primary tax evaluator after hospital discharge where they may consider outpatient cardiac catheterization. (2) Hyperkalemia: Code(s): E87.5 - Hyperkalemia Status: Acute Assessment and Plan: Potassium was 6.7 on 09/21. Improved with treatment. Management as per hospitalist. Her Losartan has been discontinued. (3) Acute kidney injury superimposed on chronic kidney disease: Code(s): N17.9 - Acute kidney failure, unspecified; N18.9 - Chronic kidney disease, unspecified Status: Acute Assessment and Plan: Stage IV CKD. Serum creatinine is 3.0 today down from 3.2 yesterday. This appears to be above her baseline. Follows with Nephrology as an outpatient. Dr. Ramirez consulted. Patient tells me that she would not want to be on dialysis. (4) Type 2 diabetes mellitus with chronic kidney disease, without long-term current use of insulin: Code(s): E11.22 - Type 2 diabetes mellitus with diabetic chronic kidney disease Status: Acute Assessment and Plan: Management as per primary team. (5) Hypertension, essential: Code(s): I10 - Essential (primary) hypertension Status: Chronic Assessment and Plan: Losartan stopped due to hyperkalemia. Management of hypertension as per Nephrology and Hospitalist. (6) Hyperlipidemia, unspecified: Qualifiers: Hyperlipidemia type: unspecified Qualified Code(s): E78.5 - Hyperlipidemia, unspecified Code(s): E78.5 - Hyperlipidemia, unspecified Status: Chronic Assessment and Plan: Switched Simvastatin to Atorvastatin for high intensity dose given NSTEMI, CAD. (7) Coronary artery disease: Code(s): I25.10 - Atherosclerotic heart disease of [place] coronary artery without angina pectoris Status: Acute Assessment and Plan: As above. Plan Recommendations and plan discussed with Hospitalist. Patient to follow up with her primary Polysomnographer at [facility] after hospital discharge. Subjective Date/time seen: 09/24/23 12:39 Interval history: Reason for visit: NSTEMI HPI: We are consulted for chest pain, elevated troponins. This is an 78 year old female with coronary artery disease s/p LAD/Diagonal bifurcation stents in 2017, hypertension, hyperlipidemia, chronic kidney disease stage IV, type 2 diabetes mellitus, chronic pancreatiti
== END 2023-09-24 13:08 | disposition home or self-care (01) | DRG 281 ==
LOC: ANHED 09-21 03:59 → ANHIMU 09-21 04:49
PROVIDERS: General Practice; Internal Medicine; Internal Medicine Nephrology; Admitting Provider Internal Medicine; Emergency Provider Emergency Medicine; PCP Family Medicine; Visit Provider Hospitalist
DX: I21.4 Non-ST elevation (NSTEMI) myocardial infarction (principal); I13.0 Hypertensive heart and chronic kidney disease with heart failure and stage 1 through stage 4 chronic kidney disease, or unspecified chronic kidney disease; N17.9 Acute kidney failure, unspecified; N18.4 Chronic kidney disease, stage 4 (severe); I50.32 Chronic diastolic (congestive) heart failure; K86.1 Other chronic pancreatitis; N39.0 Urinary tract infection, site not specified; I25.10 Atherosclerotic heart disease of native coronary artery without angina pectoris; I27.20 Pulmonary hypertension, unspecified; D64.9 Anemia, unspecified; E87.5 Hyperkalemia; E11.22 Type 2 diabetes mellitus with diabetic chronic kidney disease; E11.42 Type 2 diabetes mellitus with diabetic polyneuropathy; E11.51 Type 2 diabetes mellitus with diabetic peripheral angiopathy without gangrene; E78.5 Hyperlipidemia, unspecified; K21.9 Gastro-esophageal reflux disease without esophagitis; R41.9 Unspecified symptoms and signs involving cognitive functions and awareness; B96.20 Unspecified Escherichia coli [E. coli] as the cause of diseases classified elsewhere; Z79.82 Long term (current) use of aspirin; Z95.5 Presence of coronary angioplasty implant and graft
CPT/HCPCS: 36415; 71046; 74176; 76705; 80048; 80053; 80061; 80069; 80074; 81001; 82140; 82306; 82607; 82728; 82948; 83036; 83540; 83550; 83690; 83735; 84100; 84145; 84443; 84484; 85025; 85027; 85610; 85730; 86592; 87077; 87086; 87088; 87186; 93005; 94640; 96365; 96375; 96376; 99285; A9270; C8929; C9113; G0378; J0612; J0780; J1170; J1644; J1815; J1940; J2270; J2405; J7030; Q9957

== ENCOUNTER 2023-11-23 12:41 | Outpatient (NON) | payer MEDICARE, SELFPAY ==
[2023-11-23 14:34] LABS: Hematocrit 34.2 % (37.0-47.0); Hemoglobin 10.3 g/dL (12.0-15.0); Mean Corpuscular HGB Conc 30.1 g/dl (32-36); Mean Corpuscular Hemoglobin 27.4 pg (26-34); Mean Platelet Volume 10.3 fl (7.4-10.4); Platelet Count Result 274 k/mm3 (150-375); Red Blood Count 3.76 M/mm3 (4.2-5.4); Red Cell Distribution Width 16.9 % (11.5-14.5); White Blood Count 7.8 K/mm3 (4.5-10.0)
[2023-11-23 14:45] LABS: Albumin Level 4.1 g/dL (3.5-5.1); Anion Gap 12 mmol/L (4-12); Blood Urea Nitrogen 30 mg/dL (7-17); Calcium 9.5 mg/dL (8.4-10.2); Carbon Dioxide 21 mmol/L (22-30); Chloride 104 mmol/L (98-107); Estimated Glomerular Filt Rate 14; Glucose 159 mg/dL (65-110); Phosphorus 3.4 mg/dL (2.5-4.5); Potassium 4.7 mmol/L (3.4-5.0); Sodium 137 mmol/L (137-145)
[2023-11-23 14:56] LABS: Parathyroid Intact 63.6 pg/mL (14.5-75.2)
[2023-11-23 15:57] LABS: Creatinine Urine 85.2 mg/dL; Total Protein Urine Random 32 mg/dL; Ur Ttl Prot Creatinine Ratio 0.38 mg/mg (0-0.20)
[2023-11-23 16:47] LABS: Hepatitis B Surface Anti Res Negative
== END 2023-11-23 12:42 | disposition home or self-care (01) ==
PROVIDERS: PCP Family Medicine; Visit Provider Internal Medicine Nephrology
DX: N30.01 Acute cystitis with hematuria (principal); I25.2 Old myocardial infarction; R21 Rash and other nonspecific skin eruption; I13.0 Hypertensive heart and chronic kidney disease with heart failure and stage 1 through stage 4 chronic kidney disease, or unspecified chronic kidney disease; E21.1 Secondary hyperparathyroidism, not elsewhere classified; R53.83 Other fatigue; N18.4 Chronic kidney disease, stage 4 (severe); R80.9 Proteinuria, unspecified; Z68.37 Body mass index [BMI] 37.0-37.9, adult
CPT/HCPCS: 80069; 82570; 83970; 84156; 85027; 86706

== ENCOUNTER 2023-12-01 15:07 | Outpatient (NON) | payer MEDICARE, SELFPAY ==
[2023-12-01 15:43] LABS: Add Urine Microscopic? YES; Appearance Urine Cloudy (Clear); Bacteria Urine 1+ /hpf; Bilirubin Urine Negative (Negative); Blood Urine Negative (Negative); Color Urine Yellow (Yellow); Glucose Urine UA Negative (Negative); Ketones Urine Negative (Negative); Leukocyte Esterase Ur 1+ LEU/UL (Negative); Need Manual Microscopic Reviewed; Nitrate Urine Negative (Negative); Protein Urine 1+ mg/dL (Negative); RBC Urine 0-2 /hpf (0-2); Specific Grav Ur 1.018 (1.001-1.035); Squamous Epithelial Cell Urine Few /hpf (Few); Urobilinogen Urine 0.2 mg/dL (<2.0)
== END 2023-12-01 15:08 | disposition home or self-care (01) ==
LOC: HOME HLTH 15:13
PROVIDERS: PCP Family Medicine; Visit Provider Nurse Practitioner Family
DX: R30.0 Dysuria (principal)
CPT/HCPCS: 81001; 87086; 87088

== ENCOUNTER 2024-02-01 14:46 | Outpatient (CLI) | payer MEDICARE, SELFPAY ==
--- NOTE | ~2024-02-01 | CT_ITS ---
EXAMINATION: CT brain wo con DATE: 02/01/2024 15:16 INDICATION: G44.52 - New daily persistent headache (NDPH) . TECHNIQUE: Computed tomography (CT) of the head was performed without intravenous contrast. The mA wa s adjusted according to patient size. Iterative reconstruction technique was employed. The dose-lengt h product was 681.00 mGy-cm. COMPARISON: 03/11/2023. FINDINGS: No acute intracranial hemorrhage or extra-axial fluid collection. No hydrocephalus, mass, or herniation. No acute ischemic infarct. Unremarkable dural venous sinus attenuation. No acute osseous abnormality. The aerated spaces are clear. Mild atrophy and chronic white matter change. Atherosclerotic intracranial calcification. 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 IMPRESSION: No acute intracranial process. Reviewed, dictated and finalized at location K.
== END 2024-02-01 14:47 | disposition home or self-care (01) ==
PROVIDERS: PCP Family Medicine; Visit Provider Family Medicine
DX: G44.52 New daily persistent headache (NDPH) (principal)
CPT/HCPCS: 70450

== ENCOUNTER 2024-03-23 14:51 | Outpatient (CLI) | payer MEDICARE, SELFPAY ==
--- NOTE | ~2024-03-23 | DEXA_ITS ---
Bone Density Report Name: KIMBERLYN CULLEN Age: 78 Sex: Female Ethnicity: White Date of : 1945 Indication: postmenopausal; screening for osteoporosis; height loss; prior fracture; Referring Provider: MIKHAIL ENCISO Study: Bone densitometry was performed. Exam Date: March 23, 2024 Accession number: [id number] Bone Density: Region BMD T-score Z-score Classification AP Spine(L1-L4) 1.121 0.7 3.4 Normal Femoral Neck (Right) 0.642 -1.9 0.5 Osteopenia Total Hip (Right) 0.815 -1.0 1.1 Normal World Health Organization criteria for BMD impression classify patients as: Normal (T-score at or above -1.0), Osteopenia (T-score between -1.0 and -2.5), or Osteoporosis (T-score at or below -2.5). 10-year Fracture Risk: FRAX not reported because: Prior hip or vertebral fracture Clinical Information Provided by Patient: Have had a previous hip or vertebral fracture Has had a low trauma fracture Has used the following medications: Vitamin D Patient maximum height was 63 Menopause Age: 50 No regular weight bearing exercise Does not regularly consume dairy products Onset of menses at age 10 Number of children 3 Impression: The patient has low bone mass, based on the Right Femoral Neck T-score. The patient has risk factors, including: previous fracture. Discussion: INCREASED RISK OF FRACTURE DUE TO HISTORY OF FRACTURE. The patient's previous fracture puts the patient at high risk of a future fracture. In untreated patients, the risk of osteoporotic fracture increases approximately two-fold for each 1.0 SD decrease in T-score. Low bone density is not the only risk factor for fracture; also consider factors such as patient's age, frailty or poor health, risk of falling, risk of injury, previous osteoporotic fracture, family history of osteoporosis, cigarette smoking, low body weight, etc. Not everyone with a low trauma fracture has osteoporosis; osteomalacia and other metabolic bone disorders should also be considered. Patients who have osteoporosis should be evaluated for specific diseases and conditions (secondary causes) that may cause or contribute to bone loss and fracture risk. National Osteoporosis Foundation (NOF) recommends pharmacologic intervention for patients with a prior hip or vertebral fracture regardless of BMD T-score. The patient should follow a healthful lifestyle (good nutrition with adequate calcium and vitamin D, and appropriate weight-bearing exercise). Follow-Up: Consider a repeat BMD and Vertebral Fracture Assessment (VFA) exam in 2 years or sooner if medically necessary, to reassess this patient's status. Reported by: RICARDO on 03/23/2024 3:27:00 PM. Reviewed, dictated and finalized at location ABhanu BASILIO
== END 2024-03-23 14:52 | disposition home or self-care (01) ==
LOC: ANHIMG 14:52
PROVIDERS: PCP Family Medicine; Visit Provider Internal Medicine Endocrinology, Diabetes & Metabolism
DX: M85.851 Other specified disorders of bone density and structure, right thigh (principal); Z78.0 Asymptomatic menopausal state
CPT/HCPCS: 77080

== ENCOUNTER 2024-07-17 12:37 | Outpatient (CLI) | payer MEDICARE, SELFPAY ==
--- NOTE | ~2024-07-17 | XR_ITS ---
EXAMINATION: XR abdomen obstructive series DATE: 07/17/2024 12:58 INDICATION: Abdominal pain TECHNIQUE: Supine and upright views of the abdomen. FINDINGS: No prior studies for comparison. The visualized lung parenchyma is normal.. There is dilated small bowel in the left mid abdomen measu ring 4.3 cm. There is gas throughout the colon and rectum. Moderate colonic fecal loading. There are cholecystectomy clips. Gas and stool are seen throughout the colon to the level of the rectum. There is no free air. IMPRESSION: 1. Focally dilated bowel left mid abdomen which may represent a partial obstruction or ileus. Reviewed, dictated and finalized at location B. IMPRESSION: 1. Focally dilated bowel left mid abdomen which may represent a partial obstru ction or ileus.
== END 2024-07-17 12:38 | disposition home or self-care (01) ==
LOC: MICIMG 12:40
PROVIDERS: PCP Family Medicine; Visit Provider Family Medicine
DX: K59.39 Other megacolon (principal)
CPT/HCPCS: 74019

== ENCOUNTER 2024-08-01 15:45 | Outpatient (CLI) | payer MEDICARE, SELFPAY ==
--- NOTE | ~2024-08-01 | CT_ITS ---
Non-contrast CT scan of the Abdomen and Pelvis Clinical indication: Abdominal pain Technique: 2.5 mm axial scans were obtained through the abdomen and pelvis without intravenous or or al contrast. Dose reduction technique was used on this scan by utilizing automated exposure control a nd iterative reconstruction technique. The dose-length product (DLP) was 904.86 mGy-cm. COMPARISON: 09/21/2023 Findings: Images through the lung bases reveal no abnormalities. Right kidney unremarkable. Left kidney is relatively atrophic with mild left hydroureteronephrosis. T here is hyperdense material in the left renal collecting system with a few focal areas of hyperdensit y in the left ureter. Appearance suggests retained excreted contrast in the left renal collecting sys tem versus possibly stone disease. 8mm probable hyperdense left renal cyst present, similar to prior exam. The liver, spleen, pancreas, and adrenals appear normal. Cholecystectomy clips are present. There are atherosclerotic calcifications of the aorta. . There is no evidence of bowel obstruction. Small fat-containing umbilical hernia present. Images through the pelvis were performed. There is no evidence of ascites or lymphadenopathy. Urinary bladder unremarkable. No significant adnexal mass seen. Impression: Mild left hydroureteronephrosis with possible small ureteral stones and additional left renal collect ing stones versus possibly retained excreted contrast. Correlate with patient's symptomatology. Left kidney relatively atrophic. Small fat-containing umbilical hernia. Reviewed, dictated and finalized at [facility]. Impression: Mild left hydroureteronephrosis with possible small ureteral stones and additio nal left renal collecting stones versus possibly retained excreted contrast. Co rrelate with patient's symptomatology. Left kidney relatively atrophic. Small fat-containing umbilical hernia.
== END 2024-08-01 15:46 | disposition home or self-care (01) ==
PROVIDERS: PCP Family Medicine; Visit Provider Nurse Practitioner Family
DX: R10.9 Unspecified abdominal pain (principal); R93.5 Abnormal findings on diagnostic imaging of other abdominal regions, including retroperitoneum
CPT/HCPCS: 74176

== ENCOUNTER 2024-09-03 08:36 | Inpatient (IN) | payer MEDICARE, SELFPAY ==
--- NOTE | ~2024-09-03 | XR_ITS ---
XR abdomen/kub 1V Ordering provider: Chandler Garzon MD History: . ABDOMINAL PAIN . Comparison: None. FINDINGS: BOWEL: Nonobstructive bowel gas pattern. Fecal material is loaded in the rectum. ORGANOMEGALY: None. SIGNIFICANT PATHOLOGIC CALCIFICATIONS: None. OTHER: No free air is seen under the diaphragm. Fixation of the left femoral neck by katya and screw. IMPRESSION: NO ACUTE ABDOMINAL FINDINGS. Reviewed, dictated and finalized at location A.
--- NOTE | ~2024-09-03 | CT_ITS ---
EXAMINATION: CT abdomen pelvis wo con DATE: 09/03/2024 09:39 INDICATION: Abdominal pain TECHNIQUE: Computed tomography (CT) of the abdomen and pelvis was performed without intravenous contr ast. Automated exposure control and iterative reconstruction technique were employed. The dose-length product was 1112.00 mGy-cm. COMPARISON: None FINDINGS: Unchanged mild reticular opacities at the bilateral lung bases consistent with atelectasis and/or chr onic interstitial lung disease. Calcified nodule at the lingula consistent with old granulomatous dis ease. Heart size is normal. No pericardial or pleural effusion. Unchanged small subcapsular geographi c regions of likely focal hepatic steatosis at the ligamentum teres and along the medial margin of th e inferior right hepatic lobe. Cholecystectomy clips at gallbladder fossa. Small splenic calcificatio ns consistent with old granulomatous disease. Pancreas and bilateral adrenal glands are normal. Asymm etric bilateral diffuse renal atrophy, mild on the right and moderate on the left. Bilateral renal cy sts the largest a 2.0 cm exophytic cyst at the lower pole of the right kidney. There is also an uncha nged 8 mm hyperdense proteinaceous/hemorrhagic cyst at the lower pole the left kidney. Again seen is high attenuation filling the calyces of the left kidney but which remains without evident contrast in the renal parenchyma, renal pelvis, bladder or contralateral right renal collecting system to sugges t excreted contrast. The configuration of the high attenuation has changed since the relatively recen t prior study which suggests this represents collections are multiple tiny stones. No ureteral stones nor hydronephrosis in either kidney. Bladder is normal. There is moderate colonic diverticulosis wit h a descending and sigmoid predominance but without adjacent inflammatory change to suggest diverticu litis. Small bowel and appendix are normal. 7 cm ball of stool at the rectum. Uterus and bilateral ad nexa are unremarkable. No free intraperitoneal gas or fluid. No pathologically enlarged abdominal or pelvic lymphadenopathy. Small bilateral fat-containing inguinal hernias. Additional small fat-contain ing umbilical hernia. Moderate thoracic and lumbar spondylosis with bridging osteophytes at multiple levels consistent with diffuse idiopathic skeletal hyperostosis (DISH). Old intertrochanteric fractur e the proximal left femur which is fixed with partially visualized antegrade intramedullary katya and f emoral neck dynamic compression screw. IMPRESSION: 1. Subcentimeter ball of stool the rectum which can be seen with constipation with fecal impaction. N o other acute intra-abdominal/pelvic process. 2. Nonobstructing left nephrolithiasis filling the calyces of the left kidney. 3. Diverticulosis. 4. Small fat-containing umbilical hernia bilateral fat-containing inguinal hernias. Reviewed, dictated and finalized at location A. IMPRESSION: 1. Subcentimeter ball of stool the rectum which can be seen with constipation w ith fecal impaction. No other acute intra-abdominal/pelvic process. 2. Nonobstructing left nephrolithiasis filling the calyces of the left kidney. 3. Diverticulosis. 4. Small fat-containing umbilical hernia bilateral fat-containing inguinal monica ias.
--- NOTE | ~2024-09-03 | XR_ITS ---
XR abdomen/kub 1V 09/07/2024 10:03 INDICATION: Constipation TECHNIQUE: KUB COMPARISON: Comparison to multiple prior studies sequentially, with oldest reviewed study dated 07/2021. FINDINGS: Bowel gas pattern is normal. There are cholecystectomy clips. There are surgical changes co nsistent with internal fixation of left femoral intertrochanteric fracture. There is lumbar spondylos is. There is no evidence of free air, mass, organomegaly, ascites or obstruction. No abnormal calcul i are seen. The bones appear intact. IMPRESSION: 1: No acute abdominal abnormality identified. Reviewed, dictated and finalized at location A.
--- NOTE | ~2024-09-03 | CT_ITS ---
CT Scan of the Chest without Contrast: Clinical Indication: Cough Technique: Contiguous sections were acquired throughout the chest without intravenous contrast. Dose reduction technique was used on this scan by utilizing automated exposure control and iterative recon struction technique. The dose-length product (DLP) was 612.10 mGy-cm. Findings: There is no evidence of any significant mediastinal, hilar or axillary lymphadenopathy. Extensive cor onary artery calcifications are present. No pericardial effusion. Small left pleural effusion and minimal right pleural effusion are present. There is mild associated bibasilar atelectatic change. Images through the upper abdomen reveal no abnormalities. Impression: Small left pleural effusion and minimal right pleural effusion, with mild associated bibasilar atelec tatic change. Reviewed, dictated and finalized at location . Impression: Small left pleural effusion and minimal right pleural effusion, with mild assoc iated bibasilar atelectatic change.
--- NOTE | ~2024-09-03 | XR_ITS ---
XR chest 1V portable 09/05/2024 11:04 Indication: Cough Procedure: AP portable chest Comparison: 09/20/2023 Findings: Nodular opacities present left mid thorax. Heart size. No pleural effusion, edema or pneumothorax. There is atherosclerosis and ectasia of the a vanessa. Impression: 1: Nodular opacities left mid lung. Differential diagnosis includes focal parenchymal consolidation s econdary to infection as well as parenchymal nodules. Follow-up CT chest recommended for further asse ssment. Reviewed, dictated and finalized at location A. Impression: 1: Nodular opacities left mid lung. Differential diagnosis includes focal paren chymal consolidation secondary to infection as well as parenchymal nodules. Fol low-up CT chest recommended for further assessment.
[2024-09-03 08:36] VITALS: BP 165/74; PULSE 86; RESP 16; O2SAT 97
[2024-09-03 08:47] LABS: Glucose Point of Care 150 mg/dl (65-105)
[2024-09-03 09:02] VITALS: BP 135/76; PULSE 81; RESP 20; O2SAT 96
[2024-09-03 09:06] LABS: Basophils Percent Auto 0.3 % (0.2-1.2); Eosinophils Absolute Auto 0.5 K/mm3 (0-0.3); Eosinophils Percent Auto 4.2 % (0-4.4); Hematocrit 36.2 % (37.0-47.0); Hemoglobin 10.6 g/dL (12.0-15.0); Immature Granulocyte Absolute 0.08 K/mm3 (0.00-0.031); Immature Granulocyte Percent A 0.7 % (0-0.5); Lymphocytes Absolute Auto 1.74 K/mm3 (0.9-3.2); Lymphocytes Percent Auto 15.1 % (18.3-44.2); Mean Corpuscular HGB Conc 29.3 g/dl (32-36); Mean Corpuscular Hemoglobin 25.9 pg (26-34); Mean Corpuscular Volume 88.3 fl (80-100); Mean Platelet Volume 9.5 fl (7.4-10.4); Monocytes Absolute Auto 0.8 K/mm3 (0.1-0.6); Monocytes Percent Auto 7.1 % (2.6-8.5); Neutrophils Absolute Auto 8.4 K/mm3 (1.3-6.7); Neutrophils Percent Auto 72.6 % (45.5-73.1); Platelet Count Result 332 k/mm3 (150-375); Red Cell Distribution Width 17.6 % (11.5-14.5); White Blood Count 11.5 K/mm3 (4.5-10.0)
--- NOTE | 2024-09-03 09:06 | ED_ITS ---
HPI - Abdominal Pain General Chief Complaint: Abdominal Pain Stated Complaint: diarrhea/constipation Time Seen by Provider: 09/03/24 09:05 Source: patient Mode of arrival: ambulatory Limitations: no limitations History of Present Illness HPI narrative: 79 years old white female came from home with her family complaining of anal pain started 2 weeks ago while having diarrhea. Patient been taking [id number] Imodium at least 6 times a day for the last 2 weeks try to avoid any bowel movement which usually causing pain. History of dementia, diabetes, hypertension, hyperlipidemia, wheelchair, walker. Patient denies any fever, chills, nausea, vomiting, headache, abdominal pain. Patient came with her daughter and her who are at the bedside. Related Data Home Medications ?Medication ?Instructions ?Recorded ?Confirmed ?Last Taken ?Type dicyclomine 20 mg tablet 20 mg PO TID PRN abdominal pain 09/03/24 09/14/24 Unknown History fluticasone propionate 50 2 spray intranasal DAILY PRN nasal 09/03/24 09/14/24 Unknown History mcg/actuation nasal congestion spray,suspension Allergies Allergy/AdvReac Type Severity Reaction Status Date / Time codeine Allergy Intermediate Rash Verified 09/14/24 14:01 Penicillins Allergy Intermediate Rash Verified 09/14/24 14:01 Sulfa (Sulfonamide Allergy Intermediate cheeks get Verified 09/14/24 14:01 Antibiotics) really red Atarax Allergy Unknown deep sleep Unverified 11/05/23 08:30 hydroxyzine (From Atarax) AdvReac Unknown deep sleep Verified 09/14/24 14:01 mulberry Allergy Mild Rash Uncoded 09/14/24 14:01 Review of Systems 2 Review of Systems: All systems reviewed & are unremarkable except as noted in HPI and below PMFSH Past Medical History Medical History Encounter for immunization Neurocognitive disorder Intertrochanteric fracture of left hip Psychogenic formication Pulmonary HTN Metabolic acidosis NATE (acute kidney injury) Sepsis CHF (congestive heart failure), NYHA class I Anemia Postmenopausal Chronic kidney disease, stage 4 (severe) Coronary artery disease involving [place] heart without angina pectoris Diabetic peripheral neuropathy Hyperlipidemia, unspecified Hypertension, essential Thrombosed external hemorrhoid Type 2 diabetes mellitus with hyperglycemia PAD (peripheral artery disease) Surgical History Surgical History History of hip surgery with femur H/O heart artery stent Hx of tonsillectomy History of cholecystectomy Family History Family History Mother Cerebrovascular accident Diabetes mellitus Family history of cardiovascular disease Father Myocardial infarction Sibling Colon cancer Congestive heart failure Other Hypertension Social History Social History Social History: The patient had 3 children. 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 Her Trey is the durable power cost estimating engineer for healthcare. The patient is a full code. Who is a lifelong nonsmoker. She does not use any alcohol marijuana or illicit drugs. Code status full code Smoking status: Never smoker Second hand tobacco smoke exposure: No Alcohol intake: never Substance use: never Substance use type: does not use Do You Feel Safe in your Home?: Yes Lack of Transportation: No Lack of Food: Never True Current Housing: I Have Housing Concerned About Future Housing: No Difficulty Paying Gas/Electric Bills: No Difficulty Paying for Meds: No Currently Unemployed: No Education: High School Diploma/GED Difficulty w/ Childcare or Family Care: No Living arrangements: with family Occupation/Education: retired Gender identity (if verbalized by the patient): Female Sexual Orientation (if Verbalized by the Patient): Straight or Heterosexual Spiritual care concerns: No Agree to blood products: Yes Exam 2 Narrative: General appearance: Well-developed, well-nourished Skin: Normal color Head: Normocephalic, nontraumatic Eyes: Clear conjunctiva ENT: Oropharynx normal, ears normal, nose normal Neck: Supple, nontender Chest and respiratory: Airway patent, no respiratory distress, no accessory muscle use Heart: Regular rate/rhythm Abdomen: Soft, nontender, no organomegaly, quiet bowel sounds, rectal exam showing soft stool at the tip of my finger, severe anal tenderness, no hemorrhoids, no mass Vascular: Normal peripheral pulses, normal capillary refill. Musculoskeletal: Normal range of motion, nontender back Neurologic: Alert and oriented to her name and age only Course Vital Signs Vital signs: Vital Signs Pulse Rate 86 09/03/24 08:36 Respiratory Rate 16 09/03/24 08:36 Blood Pressure 165/74 H 09/03/24 08:36 Pulse Oximetry 97 09/03/24 08:36 Oxygen Delivery Room Air 09/03/24 08:36 Temperature 36.3 C L 09/07/24 14:00 Pulse Rate 71 09/07/24 14:00 Respiratory Rate 18 09/07/24 14:00 Blood Pressure 119/52 L 09/07/24 14:00 Pulse Oximetry 95 09/07/24 14:00 Oxygen Delivery Room Air 09/07/24 08:00 Fraction of Inspired Oxygen 21 09/03/24 21:04 MDM - Abdominal Pain MDM Narrative Medical decision making narrative: Patient came with anal pain and constipation Vital signs showing blood pressure 165/74 otherwise within normal limit Physical examination showing a patient not in pain or distress, rectal exam showing soft stool at the tip of my finger, with severe pain at the rectal area, no hemorrhoids, no mass Differential diagnosis include constipation secondary to Imodium, dehydration, electrolyte imbalance, rectal mass, rectal hemorrhoids Blood workup today includes CBC, CMP, lipase, lactic acid showed WBC 11.5, hemoglobin 10.6, BUN 32, creatinine 2.7, otherwise within normal limit Urinalysis showed evidence of infection CT abdomen and pelvis without rectal fecal impaction Admit to hospitalist Diagnosis rectal fecal impaction, urinary tract infection Differential Diagnosis Differential diagnosis: Likely other (As above) Lab Data 09/07/24 06:22 09/07/24 06:22 Labs: Lab Results 09/03/24 09/03/24 09/03/24 Range/Units 08:46 08:58 08:59 WBC 11.5 H (4.5-10.0) K/mm3 RBC 4.10 L (4.2-5.4) M/mm3 Hgb 10.6 L (12.0-15.0) g/dL Hct 36.2 L (37.0-47.0) % MCV 88.3 (80-100) fl MCH 25.9 L (26-34) pg MCHC 29.3 L (32-36) g/dl RDW 17.6 H (11.5-14.5) % Plt Count 332 (150-375) k/mm3 MPV 9.5 (7.4-10.4) fl Immature Gran % (Auto) 0.7 H (0-0.5) % Neut % (Auto) 72.6 (45.5-73.1) % Lymph % (Auto) 15.1 L (18.3-44.2) % [place] % (Auto) 7.1 (2.6-8.5) % Eos % (Auto) 4.2 (0-4.4) % Baso % (Auto) 0.3 (0.2-1.2) % Lymph # (Auto) 1.74 (0.9-3.2) K/mm3 [place] # (Auto) 0.8 H (0.1-0.6) K/mm3 Eos # (Auto) 0.5 H (0-0.3) K/mm3 Baso # (Auto) 0.0 (0.0-0.1) K/mm3 Abs Immat Gran (auto) 0.08 H (0.00-0.031) K/mm3 Absolute Neuts (auto) 8.4 H (1.3-6.7) K/mm3 Absolute Nucleated RBC 0.000 (0.0-0.012) K/mm3 Band Neutrophils % Not Reportable Nucleated RBC % 0.0 (0.0-0.2) % Platelet Estimate Adequate (Adequate) Anisocytosis 1+ Schistocytes None seen Sodium 142 (137-145) mmol/L Potassium 4.1 (3.4-5.0) mmol/L Chloride 107 (98-107) mmol/L Carbon Dioxide 22 (22-30) mmol/L Anion Gap 13 H (4-12) mmol/L BUN 32 H (7-17) mg/dL Creatinine 2.78 H (0.7-1.0) mg/dL Estim Creat Clear Calc 16 ml/min Estimated GFR 16 L (59 - ) Glucose 152 H (65-110) mg/dL POC Capillary Glucose 150 H (65-105) mg/dl Hemoglobin A1c (<5.7) % Lactic Acid (0.7-2.0) mmol/L Calcium 9.4 (8.4-10.2) mg/dL Total Bilirubin 0.4 (0.2-1.3) mg/dL AST 32 (14-36) U/L ALT 33 (6-35) U/L Alkaline Phosphatase 251 H (38-126) U/L Total Protein 7.0 (6.3-8.2) g/dL Albumin 3.9 (3.5-5.1) g/dL Lipase 60 (23-300) U/L Urine Color Yellow (Yellow) Urine Appearance Clear (Clear) Urine pH 5.0 (5.0-9.0) Ur Specific [place] 1.013 (1.001-1.035) Urine Protein 1+ H (Negative) mg/dL Urine Glucose (UA) Negative (Negative) mg/dL Urine Ketones Negative (Negative) mg/dL Ur Blood (Man) Trace (Negative) Urine Nitrate Positive H (Negative) Urine Bilirubin Negative (Negative) Urine Urobilinogen 0.2 (<2.0) mg/dL Leukocyte Esterase Rfl 2+ H (Negative) FELTON/UL Urine RBC 0-2 (0-2) /hpf Urine WBC 21-50 H (0-3) /hpf Ur Squamous Epith Cells Occasional (Few) /hpf Urine Bacteria 4+ H /hpf Urine Casts 3-5 09/03/24 09/03/24 09/04/24 Range/Units 09:15 17:57 06:09 WBC 10.7 H (4.5-10.0) K/mm3 RBC 3.54 L (4.2-5.4) M/mm3 Hgb 9.0 L (12.0-15.0) g/dL Hct 32.2 L (37.0-47.0) % MCV 91.0 (80-100) fl MCH 25.4 L (26-34) pg MCHC 28.0 L (32-36) g/dl RDW 17.9 H (11.5-14.5) % Plt Count 285 (150-375) k/mm3 MPV 9.6 (7.4-10.4) fl Immature Gran % (Auto) 0.8 H (0-0.5) % Neut % (Auto) 75.2 H (45.5-73.1) % Lymph % (Auto) 13.6 L (18.3-44.2) % [place] % (Auto) 7.6 (2.6-8.5) % Eos % (Auto) 2.4 (0-4.4) % Baso % (Auto) 0.4 (0.2-1.2) % Lymph # (Auto) 1.45 (0.9-3.2) K/mm3 [place] # (Auto) 0.8 H (0.1-0.6) K/mm3 Eos # (Auto) 0.3 (0-0.3) K/mm3 Baso # (Auto) 0.0 (0.0-0.1) K/mm3 Abs Immat Gran (auto) 0.08 H (0.00-0.031) K/mm3 Absolute Neuts (auto) 8.0 H (1.3-6.7) K/mm3 Absolute Nucleated RBC 0.000 (0.0-0.012) K/mm3 Band Neutrophils % Not Reportable Nucleated RBC % 0.0 (0.0-0.2) % Platelet Estimate Adequate (Adequate) Anisocytosis 1+ Schistocytes None seen Sodium 144 (137-145) mmol/L Potassium 3.6 (3.4-5.0) mmol/L Chloride 113 H (98-107) mmol/L Carbon Dioxide 22 (22-30) mmol/L Anion Gap 9 (4-12) mmol/L BUN 26 H (7-17) mg/dL Creatinine 2.39 H (0.7-1.0) mg/dL Estim Creat Clear Calc 18 ml/min Estimated GFR 19 L (59 - ) Glucose 136 H (65-110) mg/dL POC Capillary Glucose 137 H (65-105) mg/dl Hemoglobin A1c 7.0 H (<5.7) % Lactic Acid 1.4 (0.7-2.0) mmol/L Calcium 8.8 (8.4-10.2) mg/dL Total Bilirubin 0.3 (0.2-1.3) mg/dL AST 24 (14-36) U/L ALT 22 (6-35) U/L Alkaline Phosphatase 184 H (38-126) U/L Total Protein 6.0 L (6.3-8.2) g/dL Albumin 3.2 L (3.5-5.1) g/dL Lipase (23-300) U/L Urine Color (Yellow) Urine Appearance (Clear) Urine pH (5.0-9.0) Ur Specific [place] (1.001-1.035) Urine Protein (Negative) mg/dL Urine Glucose (UA) (Negative) mg/dL Urine Ketones (Negative) mg/dL Ur Blood (Man) (Negative) Urine Nitrate (Negative) Urine Bilirubin (Negative) Urine Urobilinogen (<2.0) mg/dL Leukocyte Esterase Rfl (Negative) FELTON/UL Urine RBC (0-2) /hpf Urine WBC (0-3) /hpf Ur Squamous Epith Cells (Few) /hpf Urine Bacteria /hpf Urine Casts 09/04/24 09/04/24 Range/Units 07:48 11:32 WBC (4.5-10.0) K/mm3 RBC (4.2-5.4) M/mm3 Hgb (12.0-15.0) g/dL Hct (37.0-47.0) % MCV (80-100) fl MCH (26-34) pg MCHC (32-36) g/dl RDW (11.5-14.5) % Plt Count (150-375) k/mm3 MPV (7.4-10.4) fl Immature Gran % (Auto) (0-0.5) % Neut % (Auto) (45.5-73.1) % Lymph % (Auto) (18.3-44.2) % [place] % (Auto) (2.6-8.5) % Eos % (Auto) (0-4.4) % Baso % (Auto) (0.2-1.2) % Lymph # (Auto) (0.9-3.2) K/mm3 [place] # (Auto) (0.1-0.6) K/mm3 Eos # (Auto) (0-0.3) K/mm3 Baso # (Auto) (0.0-0.1) K/mm3 Abs Immat Gran (auto) (0.00-0.031) K/mm3 Absolute Neuts (auto) (1.3-6.7) K/mm3 Absolute Nucleated RBC (0.0-0.012) K/mm3 Band Neutrophils % Nucleated RBC % (0.0-0.2) % Platelet Estimate (Adequate) Anisocytosis Schistocytes Sodium (137-145) mmol/L Potassium (3.4-5.0) mmol/L Chloride (98-107) mmol/L Carbon Dioxide (22-30) mmol/L Anion Gap (4-12) mmol/L BUN (7-17) mg/dL Creatinine (0.7-1.0) mg/dL Estim Creat Clear Calc ml/min Estimated GFR (59 - ) Glucose (65-110) mg/dL POC Capillary Glucose 136 H 171 H (65-105) mg/dl Hemoglobin A1c (<5.7) % Lactic Acid (0.7-2.0) mmol/L Calcium (8.4-10.2) mg/dL Total Bilirubin (0.2-1.3) mg/dL AST (14-36) U/L ALT (6-35) U/L Alkaline Phosphatase (38-126) U/L Total Protein (6.3-8.2) g/dL Albumin (3.5-5.1) g/dL Lipase (23-300) U/L Urine Color (Yellow) Urine Appearance (Clear) Urine pH (5.0-9.0) Ur Specific [place] (1.001-1.035) Urine Protein (Negative) mg/dL Urine Glucose (UA) (Negative) mg/dL Urine Ketones (Negative) mg/dL Ur Blood (Man) (Negative) Urine Nitrate (Negative) Urine Bilirubin (Negative) Urine Urobilinogen (<2.0) mg/dL Leukocyte Esterase Rfl (Negative) FELTON/UL Urine RBC (0-2) /hpf Urine WBC (0-3) /hpf Ur Squamous Epith Cells (Few) /hpf Urine Bacteria /hpf Urine Casts Imaging Data Radiologist's impression: ITS Impressions Abdomen/Pelvis CT 09/03/24 09:54 IMPRESSION: 1. Subcentimeter ball of stool the rectum which can be seen with constipation with fecal impaction. No other acute intra-abdominal/pelvic process. 2. Nonobstructing left nephrolithiasis filling the calyces of the left kidney. 3. Diverticulosis. 4. Small fat-containing umbilical hernia bilateral fat-containing inguinal hernias. Chest X-Ray 09/05/24 11:05 Impression: 1: Nodular opacities left mid lung. Differential diagnosis includes focal parenchymal consolidation secondary to infection as well as parenchymal nodules. Follow-up CT chest recommended for further assessment. Abdomen X-Ray 09/07/24 10:12 IMPRESSION: 1: No acute abdominal abnormality identified. Chest CT 09/07/24 14:25 Impression: Small left pleural effusion and minimal right pleural effusion, with mild associated bibasilar atelectatic change. Critical Care Time Critical Care Time Critical Care Time: No Discharge Plan Discharge Clinical Impression: Fecal impaction Urinary tract infection Qualifiers: Urinary tract infection type: acute cystitis Hematuria presence: with hematuria Qualified Code(s): N30.01 - Acute cystitis with hematuria Patient Disposition: Still a Patient Condition: Stable
[2024-09-03 09:12] LABS: Add Urine Microscopic? YES; Appearance Urine Clear (Clear); Bacteria Urine 4+ /hpf; Bilirubin Urine Negative (Negative); Blood Urine Trace (Negative); Color Urine Yellow (Yellow); Glucose Urine UA Negative (Negative); Ketones Urine Negative (Negative); Leukocyte Esterase Ur 2+ LEU/UL (Negative); Nitrate Urine Positive (Negative); Protein Urine 1+ mg/dL (Negative); RBC Urine 0-2 /hpf (0-2); Specific Grav Ur 1.013 (1.001-1.035); Squamous Epithelial Cell Urine Occasional /hpf (Few); Urobilinogen Urine 0.2 mg/dL (<2.0); WBC Urine 21-50 /hpf (0-3)
--- OUTSIDE RECORDS SUMMARY | 2024-09-03 09:12 | XMS_ITS | Clinical Summary ---
Author Organization [facility] Address [address] [place] [address] Care Team Providers Care Engineering Librarian Name Role Phone Jens Johnson MD Primary Care Provider [phone] Source Comments [facility],non-owned Affiliates and Associated Physician Practices is amultiple site organization consisting of ambulatory clinics and hospital sitesin [place], [place], [place] and [place]. This disclosure is being madepursuant to the Care Everywhere program and may not contain all information available regarding this patient. Last updated 17.[facility] [place] Allergies Active Allergy Reactions Criticality Noted Date Comments Contrast-Iodinated Agents For Ct/Other Rash Medium 03/23/2017 Penicillins Rash Medium 03/23/2017 Shellfish Allergy Rash Medium 03/23/2017 Sulfa Drugs Dizziness 03/23/2017 Medications * Be aware that medications may not be up to date on this document. Alwaysverify current medications with the patient. indomethacin (INDOCIN) 25 MG capsule Take 25 mg by mouth 3 times daily as needed for Pain Active nitroGLYCERIN (NITROSTAT) 0.4 MG tablet Dissolve 0.4 mg under the tongue as needed for Angina Active furosemide (LASIX) 80 MG tablet Take 80 mg by mouth once daily Active febuxostat (ULORIC) 40 MG tablet Take 40 mg by mouth daily with lunch Active pantoprazole (PROTONIX) 40 MG packet Take 40 mg by mouth once daily Active simvastatin (ZOCOR) 20 MG tablet Take 20 mg by mouth at bedtime Active gabapentin (NEURONTIN) 300 MG capsule Take 300 mg by mouth 2 times daily 1500 and 2200 Active multivitamin daily (THERAGRAN) tablet Take 1 tablet by mouth daily with food Active acetaminophen CR (TYLENOL ARTHRITIS PAIN) 650 MG tablet Take 650 mg by mouth every 8 hours as needed for Pain Active aspirin (ASPIRIN) 81 MG chew tablet Take 1 tablet by mouth once daily 03/25/2017 Active metFORMIN (GLUCOPHAGE) 500 MG tablet Take 2 tablets by mouth 2 times daily with morning and evening meal Hold for 2 days. 03/26/2017 Active ticagrelor (BRILINTA) 90 MG tablet Take 1 tablet by mouth 2 times daily 60 tablet 6 03/24/2017 Active Active Problems Problem Noted Date Diagnosed Date Coronary artery disease invo lving [place] coronary artery of [place] heart 03/23/2017 Social History Tobacco Use Types Packs/Day Years Used Date Smoking Tobacco: Never Assessed Comments Unknown Sex and Gender Information Value Date Recorded Sex Assigned at Not on file Legal Sex Female 8:02 AM MONORAIL HOOKER Gender Identity Not on file Sexual Orientation Not on file Last Filed Vital Signs Vital Sign Reading Time Taken Comments Blood Pressure 129/64 03/24/2017 11:59 AM MONORAIL HOOKER Pulse 95 03/24/2017 11:59 AM MONORAIL HOOKER Temperature 36.5 C (97.7 F) 03/24/2017 11:59 AM MONORAIL HOOKER Respiratory Rate 18 03/24/2017 11:59 AM MONORAIL HOOKER Oxygen Saturation 100% 03/24/2017 11:59 AM MONORAIL HOOKER Inhaled Oxygen Concentration - - Weight 95.3 kg (210 lb) 03/24/2017 6:15 AM MONORAIL HOOKER Height 162.6 cm (5' 4) 03/23/2017 8:43 AM MONORAIL HOOKER Body Mass Index 36.05 03/23/2017 8:43 AM MONORAIL HOOKER Plan of Treatment Health Maintenance Due Date Last Done Comments BONE DENSITY TESTING 1945 DTAP/TDAP/TD VACCINES (1 - Tdap) 06/15/1962 PNEUMOCOCCAL VACCINE 50+ (1 of 1 - PCV) 06/15/1993 ZOSTER VACCINE (1 of 2) 06/15/1993 Respiratory Syncytial Virus (RSV) Vaccine Pt: or over 60 yrs (1 - 1-dose 75+ series) 06/15/2018 COVID-19 VACCINE ( - 2023-2 5 season) 2023 DEPRESSION SCREENING 04/05/2024 INFLUENZA VACCINE (Season Ended) 2024 HEPATITIS B VACCINE Aged Out No longe r eligible based on patient's age to complete this topic HIB VACCINE Aged Out No longer eligi ble based on patient's age to complete this topic HPV VACCINE Aged Out No longer eligi ble based on patient's age to complete this topic MENINGOCOCCAL (Group B) VACC INE SHARED DECISION-MAKING Aged Out No longer eligibl e based on patient's age to complete this topic MENINGOCOCCAL GROUPS A/C/Y/W VACCINE Aged Out No longer eligible b ased on patient's age to complete this topic Insurance [facility] MEDICARE Advance Directives * Full Code (Latest Code Status on File) Date Activated Date Inactivated Comments 03/23/2017 11:04 AM 03/24/2017 4:56 PM Care Teams Engineering Librarian Relationship Specialty Start Date End Date Jens Johnson MD [address] [place] [phone] PCP - General Family Medicine 03/23/17
[2024-09-03] MEDS: SODIUM CHLORIDE 0.9% IV 1,000 ML 999 ML IV CONT (09:13)
--- OUTSIDE RECORDS SUMMARY | 2024-09-03 09:13 | XMS_ITS | CONTINUITY OF CARE DOCUMENT ---
Author Name stephie rosialaina Address Unknown Organization [facility] Address [address] [place] [address] Phone [phone] Care Team Providers Care Innersole Fitter Name Role Phone Matteo Tobar MD Unavailable BINTA VILA, TOM Unavailable [phone] BINTA VILA, TOM Unavailable [phone] PROBLEMS Condition Status Date Provider Notes Swollen leg active Matteo Tobar MD Family History of CVA or Stroke: active ? Elisha Tobar MD Family History of Sudden Cardiac : active ? Matteo Tobar MD Family History of CVA or Stroke: active ? Elisha Tobar MD Family History of Sudden Cardiac : active ? Matteo Tobar MD Chest discomfort active Matteo Tobar MD HTN active Matteo Tobar MD Hyperlipidemia active Matteo Tobar MD CAD active Matteo Tobar MD Snoring active Matteo Tobar MD Diabetes mellitus active Matteo Tobar MD VENOUS INSUFFICIENCY active Matteo Tobar MD Hyperkalemia active Matteo Tobar MD ENCOUNTERS Date Type Provider Location Encounter Diag nosis - In-person encounter Office Visit Matteo Tobar MD [facility] Hyperkalemia - In-person encounter Office Visit Matteo Tobar MD [facility] VENOUS INSUFFICIENCY - In-person encounter Office Visit Matteo Tobar MD [facility] - In-person encounter Office Visit Matteo Tobar MD [facility] Diabetes mellitus - In-person encounter Office Visit Matteo Tobar MD [facility] - In-person encounter Office Visit Matteo Tobar MD [facility] CADSnoring - In-person encounter Office Visit Matteo Tobar MD [facility] - In-person encounter Office Visit Matteo Tobar MD [facility] Swollen legFamily History of CVA or Stroke:Family History of Sudden Cardiac :Family History of CVA or Stroke:Family History of Sudden Cardiac :Chest discomfortHTNHyperlipidemia VITAL SIGNS Date Observation Value Provider Body Mass Index (Ratio) 36.28 kg/m2 Romie Tobar MD blood pressure, diastolic 85 mm[Hg] Mikayla gandhiLogjakub blood pressure, systolic 152 mm[Hg] Deirdre Loyola blood pressure, diastolic 85 mm[Hg] [facility] calder[facility] Randle blood pressure, systolic 152 mm[Hg] Melany Randle oxygen saturation, oximetry 98 % Virginia Randle respiratory rate E&M 16 /min Virginia Carrera tera pulse rate 85 /min Virginia Randle weight E&M 211.4 [lb_av] Virginia Randle height E&M 64 [in_i] Virginia Randle Body Mass Index (Ratio) 37.42 kg/m2 Romie Tobar MD blood pressure, diastolic 84 mm[Hg] Er ica Janice blood pressure, systolic 130 mm[Hg] Jana ca Janice oxygen saturation, oximetry 96 % Ethel Camacho pulse rate 97 /min Ethel Kumar Cano weight E&M 218 [lb_av] Etheldenilson Cano height E&M 64 [in_i] Ethel Kumar Cano Body Mass Index (Ratio) 36.39 kg/m2 Romie Tobar MD blood pressure, cuff size large Ke rri Gruenenfelder blood pressure, diastolic 80 mm[Hg] Ke rri Gruenenfelder blood pressure, systolic 140 mm[Hg] Adam ri Keenenfrocer oxygen saturation, oximetry 98 % Citlaly Dakota respiratory rate E&M 20 /min Citlaly G brunoenenfelder pulse rate 107 /min Citlaly Devika lder weight E&M 212 [lb_av] Citlaly Devika lder height E&M 64 [in_i] Citlaly Devika lder Body Mass Index (Ratio) 36.21 kg/m2 Romie Tobar MD blood pressure, cuff size large Ke rri Grueneyoditer blood pressure, diastolic 80 mm[Hg] Ke rri Gruenenfelder blood pressure, systolic 130 mm[Hg] Adma ri Keenedhaval oxygen saturation, oximetry 98 % Citlaly Darreller respiratory rate E&M 18 /min Citlaly G brunoenenfelder pulse rate 98 /min Citlaly Keenegretae lder weight E&M 211 [lb_av] Citlaly Gruenenfe lder height E&M 64 [in_i] Citlaly Keenegretae lder Body Mass Index (Ratio) 36.56 kg/m2 Romie Tobar MD blood pressure, cuff size large Ke rri Gruenenfelder blood pressure, diastolic 90 mm[Hg] Tom chamberlain Jasestephaniemike blood pressure, systolic 170 mm[Hg] Adam tompkins Jasestephaniemike oxygen saturation, oximetry 98 % Citlaly Valentinroccate respiratory rate E&M 24 /min Citlaly Mills brunomichellemike pulse rate 104 /min Citlaly Fortune er weight E&M 213 [lb_av] Citlaly Fortune lder height E&M 64 [in_i] Citlaly Fortune [facility] Body Mass Index (Ratio) 35.80 kg/m2 Romie Tobar MD blood pressure, diastolic 82 mm[Hg] Simeon Sutherland blood pressure, systolic 137 mm[Hg] Luna Sutherland oxygen saturation, oximetry 97 % Antonella Sutherland respiratory rate E&M 18 /min Stanley Sutherland pulse rate 100 /min Antonella sheppard weight E&M 208.6 [lb_av] Antonella pack height E&M 64 [in_i] Antonella sheppard Body Mass Index (Ratio) 37.31 kg/m2 Romie Tobar MD blood pressure, resting Yes Yessy Sutherland blood pressure, diastolic 84 mm[Hg] Simeon Sutherland blood pressure, systolic 173 mm[Hg] Luna Sutherland oxygen saturation, oximetry 97 % Antonella Sutherland respiratory rate E&M 18 /min Stanley Sutherland pulse rate 100 /min Antonella sheppard weight E&M 217.4 [lb_av] Antonella pack height E&M 64 [in_i] Antonella sheppard Body Mass Index (Ratio) 37.42 kg/m2 Pavan Stiles blood pressure, cuff size large Tom Duncan blood pressure, diastolic 82 mm[Hg] Tom rrtrisha Duncan blood pressure, systolic 160 mm[Hg] Adam Duncan oxygen saturation, oximetry 96 % Citlaly Duncan respiratory rate E&M 18 /min Citlaly waggonerroccate pulse rate 117 /min Citlaly Fortune lder weight E&M 218 [lb_av] Citlaly Fortune lder height E&M 64 [in_i] Citlaly Fortune er ALLERGIES Allergy Name Onset Date Reaction Criticality Status IVP DYE Low Criticality active SULFA Low Criticality active PCN Low Criticality active RESULTS Date Observation Value Provider Reference Range Interpretation Location alanine aminotransferase (SGPT), serum 11 1/L [facility] 6-29 Normal aspartate aminotransferase (SGOT), serum 18 1/L [facility] 10-35 Normal alkaline phosphatase, serum 98 1/L [facility] 33-130 Normal bilirubin, serum, total 0.3 mg/dL [facility] 0.2-1.2 Normal albumin/globulin ratio, serum 1.3 (calc) [facility] 1.0-2.5 Normal globulins, serum, total 3.0 G/DL (CALC) [facility] 1.9-3.7 Normal albumin, serum 4.0 g/dL [facility] 3.6-5.1 Normal protein, total, serum 7.0 g/dL [facility] 6.1-8.1 Normal calcium, serum 9.2 mg/dL [facility] 8.6-10.4 Normal carbon dioxide, venous blood 25 mmol/L [facility] 20-31 Normal 2018/03 /06 chloride, serum 107 mmol/L [facility] 98-110 Normal potassium, serum 4.7 mmol/L [facility] 3.5-5.3 Normal sodium, serum 143 mmol/L [facility] 135-146 Normal urea nitrogen/creatinine ratio, serum 23 (calc) [facility] 6-22 High Estimated Glomerular Filtration Rate (calc) 29 mL/min/{1.73_ m2} [facility] > OR = 60 Low creatinine, serum 1.94 mg/dL [facility] 0.60-0.93 High urea nitrogen, blood 45 mg/dL [facility] 7-25 High blood glucose, random 151 mg/dL [facility] 65-99 High cholesterol, non-HDL, total 141 MG/DL (CALC) [facility] <130 High cholesterol/HDL ratio, serum, percent 5.4 (calc) [facility] <5.0 High LDL cholesterol, serum 95 MG/DL (CALC) [facility] Normal triglyceride, serum, fasting 346 mg/dL [facility] <150 High HDL cholesterol, serum 32 mg/dL [facility] >50 Low cholesterol, serum 173 mg/dL [facility] <200 Normal Total LDL-cholesterol direct 93 mg/dL [facility] 0-100 international normalized ratio (INR) 0.9 [facility] 0.9-1.1 prothrombin time (patient) 9.1 s [facility] 9.0-11.5 platelet count 303 THOUSAND/UL [facility] 422-261 7207/11 /15 Absolute Basophils 0.0 CELLS/UL [facility] 0.0-0.2 Absolute Monocytes 0.5 CELLS/UL [facility] 0.2-1.0 Absolute Lymphocytes 1.93 CELLS/UL [facility] 0.85-3.90 Absolute Neutrophils 3.9 CELLS/UL [facility] 1.5-7.8 mean corpuscular volume, RBC 89 fL [facility] 75-100 mean corpuscular hemoglobin concentration, RBC 29 G/DL [facility] 31-38 Low mean corpuscular hemoglobin, RBC 26 pg [facility] 25-35 hematocrit, blood 38 % [facility] 35-55 hemoglobin, blood 10.8 g/dL [facility] 11.5-16.5 Low erythrocyte count, whole blood 4.2 MILLION/UL [facility] 3.5-5.5 very low density lipoproteins 94.6 mg/dL [facility] 5.0-40.0 High LDL/HDL (low-density lipoprotein/high-de nsity lipoprotein) ratio 1 mg/dL [facility] 0-5 lipoprotein, beta, serum, point, quantitative, calculated 60 mg/dL [facility] 0-100 HDL cholesterol, serum 42 mg/dL [facility] 45-65 Low cholesterol, serum 197 mg/dL [facility] 0-200 triglyceride, serum, fasting 473 mg/dL [facility] 0-150 High Estimated Glomerular Filtration Rate (calc) 34 (?) [facility] >59 Low chloride, serum 102 mmol/L [facility] 98-107 potassium, serum 4.7 mmol/L [facility] 3.5-5.1 sodium, serum 144 mmol/L [facility] 839-498 8756/11 /15 creatinine, serum 1.6 mg/dL [facility] 0.5-0.9 High carbon dioxide, venous blood 24 mmol/L [facility] 23-31 calcium, serum 9.7 mg/dL [facility] 8.6-10.2 urea nitrogen, blood 39 mg/dL [facility] 8-23 High blood glucose, random 159 mg/dL [facility] 74-99 High albumin/creatinine ratio, urine 18 MG/G CREATININE [facility] 0-30 creatinine, random, urine 51.36 (?) [facility] microalbumin, urine 9 [facility] 0-30 pro brain natriuretic peptide 68 pg/mL [facility] 0-450 Estimated Glomerular Filtration Rate (calc) 32 (?) [facility] >59 Low chloride, serum 104 mmol/L [facility] 98-107 potassium, serum 4.1 mmol/L [facility] 3.5-5.1 sodium, serum 144 mmol/L [facility] 760-404 1795/10 /11 creatinine, serum 1.7 mg/dL [facility] 0.5-0.9 High carbon dioxide, venous blood 23 mmol/L [facility] 23-31 albumin, serum 4.6 g/dL [facility] 3.5-5.2 calcium, serum 9.9 mg/dL [facility] 8.6-10.2 aspartate aminotransferase (SGOT), serum 17 1/L [facility] 0-32 alkaline phosphatase, serum 92 1/L [facility] 40-130 alanine aminotransferase (SGPT), serum 10 1/L [facility] 0-33 protein, total, serum 7.3 g/dL [facility] 6.6-8.7 bilirubin, serum, total 0.2 mg/dL [facility] 0.0-1.2 urea nitrogen, blood 37 mg/dL [facility] 8-23 High blood glucose, random 178 mg/dL [facility] 74-99 High platelet count 279 THOUSAND/UL [facility] 536-833 5939/10 /11 Absolute Basophils 0.0 CELLS/UL [facility] 0.0-0.2 Absolute Monocytes 0.4 CELLS/UL [facility] 0.2-1.0 Absolute Lymphocytes 1.91 CELLS/UL [facility] 0.85-3.90 Absolute Neutrophils 4.0 CELLS/UL [facility] 1.5-7.8 mean corpuscular volume, RBC 87 fL [facility] 75-100 mean corpuscular hemoglobin concentration, RBC 30 G/DL [facility] 31-38 Low mean corpuscular hemoglobin, RBC 26 pg [facility] 25-35 hematocrit, blood 37 % [facility] 35-55 hemoglobin, blood 10.9 g/dL [facility] 11.5-16.5 Low erythrocyte count, whole blood 4.2 MILLION/UL [facility] 3.5-5.5 HISTORY OF MEDICATION USE Medication Status Instructions Dates Provider Indications Com babatunde LISINOPRIL 5 MG ORAL TABLET active ONE TAB. DAILY Ethel Camacho SIMVASTATIN 20 MG ORAL TABLET active ONE TAB. DAILY Citlaly Duncan METFORMIN HCL 500 MG ORAL TABLET completed one pill twice a day - Citlaly Duncan TRADJENTA 5 MG ORAL TABLET active once a day Citlaly Duncan BRILINTA 90 MG ORAL TABLET completed 1 tablet twice daily - Matteo Tobar MD JANUVIA 50 MG ORAL TABLET completed take one pill a day - Citlaly Duncan ASPIRIN ADULT LOW DOSE 81 MG ORAL TABLET DELAYED RELEASE active One Tab By Mouth Daily Citlaly Duncan PLAVIX 75 MG ORAL TABLET completed ONE TAB. DAILY - Citlaly Duncan INDOMETHACIN 25 MG ORAL CAPSULE completed 3 times daily as needed - Citlaly Duncan NITROSTAT 0.4 MG SUBLINGUAL TABLET SUBLINGUAL active One tab. under tongue as needed. May repeat twice in 10 minutes. Matteo Tobar MD ROLAIDS TABLET CHEWABLE completed as needed - Antonella Sutherland LASIX 80 MG ORAL TABLET active take one half to one whole pill a day Citlaly Duncan ULORIC 40 MG ORAL TABLET active take one pill a day Citlaly Duncan PANTOPRAZOLE SODIUM 40 MG ORAL TABLET DELAYED RELEASE completed take one pill a day - Citlaly Duncan SIMVASTATIN 20 MG ORAL TABLET completed ONE TAB. DAILY - Citlaly Duncan AMARYL 4 MG ORAL TABLET active take one pill twice a day Citlaly Duncan GABAPENTIN 300 MG ORAL CAPSULE active 2 pills a day Citlaly Duncan SOCIAL HISTORY Date Observation Value Provider social history E&M S moking History: Augustine golden has never smoked. Matteo Tobar MD social history reviewed E&M revi ewed - no changes required Matteo Tobar MD smoking status Never smoker Virginia Randle social history E&M S moking History: Augustine golden has never smoked. Matteo Tobar MD smoking status Never smoker Ethel Trimble social history reviewed E&M revi ewed - no changes required Ethel Camacho social history E&M S moking History: Augustine golden has never smoked. Matteo Tobar MD social history reviewed E&M revi ewed - no changes required Matteo Tobar MD smoking status Never smoker Citlaly Vivek chavez social history E&M S moking History: Augustine golden has never smoked. Matteo Tobar MD social history reviewed E&M revi ewed - no changes required Matteo Tobra MD smoking status Never smoker Citlaly Vivek chavez smoking status Never smoker Matteo Tobar MD social history E&M S moking History: Augustine golden has never smoked. Matteo Tobar MD social history reviewed E&M revi ewed - no changes required Matteo Tobar MD social history reviewed E&M revi ewed - no changes required Matteo Tobar MD smoking status Never smoker Antonella Dominguez social history reviewed E&M revi ewed - no changes required Matteo Tobar MD smoking status Never smoker Antonella Domenic gilbert number of grandchildren Matteo Tobar MD U jhonathan Tobar MD social history reviewed E&M revi ewed - no changes required Matteo Tobar MD smoking status Never smoker Citlaly Sweethina chavez FUNCTIONAL STATUS Date Observation Value Provider HRA, CV Assess/Plan, Angina (inactive) Management Plan continue current therapy Matteo Tobar MD HRA, CV Assess/Plan, Angina (inactive) Management Plan continue current therapy Matteo Tobar MD FAMILY HISTORY Family Member Condition Father Family History of Villanueva dden Cardiac : Father Family History of CV A or Stroke: Mother Family History of Villanueva dden Cardiac : Mother Family History of CV A or Stroke: INSURANCE PROVIDERS Payer name Policy type / Coverage type [place] [employer] [facility] [id number] ADVANCE DIRECTIVES Name Date DISCUSSED - NO DECISION MADE TREATMENT PLAN Date Name Performer [id number],C,I t appears her Potassium was going up. She was taken off the lisinopril. SHe may have worse renal function Matteo Tobar MD [id number],S,Had stent to her LAD/D1. No Sx Matteo Tobar MD [id number],W, B P today: 152/85 P rior BP: 130/84 (02/02/2019) Labs Reviewed: C reat: 1.94 (06/08/2017) C hol: 173 (06/08/2017) HDL: 32 (06/08/2017) LDL: 95 MG/DL (CALC) (06/08/2017) T (06/08/2017) Matteo Tobar MD [id number],S,She has no fu rther chest discomfort Matteo Tobar MD [id number],S, Matteo Tobar MD [id number],S, Matteo Tobar MD [id number],C,I t appears her Potassium was going up. She was taken off the lisinopril. Matteo Tobar MD [id number],S, Matteo Tobar MD [id number],C, B P today: 152/85 P rior BP: 130/84 (02/02/2019) Labs Reviewed: C reat: 1.94 (06/08/2017) C hol: 173 (06/08/2017) HDL: 32 (06/08/2017) LDL: 95 MG/DL (CALC) (06/08/2017) T (06/08/2017) Matteo Tobar MD Cardiology:It appear s her Potassium was going up. She was taken off the lisinopril. SHe may have worse renal function Matteo Tobar MD Cardiology:Had stent to her LAD/ D1. No Sx Matteo Tobar MD Cardiology: B P today: 152/85 P rior BP: 130/84 (02/02/2019) Labs Reviewed: C reat: 1.94 (06/08/2017) C hol: 173 (06/08/2017) HDL: 32 (06/08/2017) LDL: 95 MG/DL (CALC) (06/08/2017) T (06/08/2017) Matteo Tobar MD Cardiology:She has no further ch est discomfort Matteo Tobar MD Cardiology Matteo Tobar MD Cardiology Matteo Tobar MD Cardiology:It appear s her Potassium was going up. She was taken off the lisinopril. Matteo Tobar MD Cardiology Matteo Tobar MD Cardiology: B P today: 152/85 P rior BP: 130/84 (02/02/2019) Labs Reviewed: C reat: 1.94 (06/08/2017) C hol: 173 (06/08/2017) HDL: 32 (06/08/2017) LDL: 95 MG/DL (CALC) (06/08/2017) T (06/08/2017) Matteo Tobar MD Cardiology:Previous venous US from 2017 showed she has significant b/l gsv reflux. Recommend she try using compression stockings. Matteo Tobar MD Cardiology:Per PCP Matteo Tobar MD Cardiology: H er updated medication list for this problem includes: Simvastatin 20 Mg Oral Tablet (Simvastatin) ..... One tab. daily Matteo Tobar MD Cardiology:Will chec k a stress regadenosen. Possibly this is secondary to GERD. Matteo Tobar MD Cardiology: B P today: 130/84 P rior BP: 140/80 (06/02/2018) Labs Reviewed: C reat: 1.94 (06/08/2017) C hol: 173 (06/08/2017) HDL: 32 (06/08/2017) LDL: 95 MG/DL (CALC) (06/08/2017) T (06/08/2017) Matteo Tobar MD Cardiology:As above, will check a regadenosen for her chest discomfort. Matteo Tobar MD Cardiology Follow up :Discontinued Brilinta today, continue Aspirin. Matteo Tobar MD Cardiology Follow up :Recommend patient use compression stockings with pressure of 20-30mmHg. Compression stockings may be available online through: www.[email or web address], [email or web address] - or in-store through: [facility] at our [facility], [facility], or a medical supply store. Matteo Tobar MD Cardiology Follow up :Reports mo st recent A1c as 7% Matteo Tobar MD Cardiology Follow up : B P today: 140/80 P rior BP: 130/80 (11/29/2017) Matteo Tobar MD Cardiology Follow up :Cont. Simv a 20mg. Per Dr. Elizabeth Tobar MD Cardiology Follow up Matteo palacios MD Cardiology Follow up :per PCP Us dedrick Tobar MD Cardiology Follow up :HbA1c high per pt. Referred tospecialist for care by Dr. Elizabeth Tobar MD Cardiology Follow up : B P today: 130/80 P rior BP: 170/90 (08/19/2017) Labs Reviewed: C reat: 1.94 (06/08/2017) C hol: 173 (06/08/2017) HDL: 32 (06/08/2017) LDL: 95 MG/DL (CALC) (06/08/2017) T (06/08/2017) Her updated medication list for this problem includes: Aspirin Adult Low Dose 81 Mg Oral Tablet Delayed Release (Aspirin) ..... One tab by mouth daily Lasix 80 Mg Oral Tablet (Furosemide) ..... Take one half to one whole pill a day Matteo Tobar MD Cardiology Follow up :S/p intervention to LAD diag. N o further chest pains or heartburn symptoms. S table. S he has begun to have tremors, and her kidney function has decreased and she was taken off Simvastatin. 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 Matteo Tobar MD Cardiology Follow up : B P today: 170/90 P rior BP: 137/82 (04/30/2017) Labs Reviewed: C reat: 1.94 (06/08/2017) C hol: 173 (06/08/2017) HDL: 32 (06/08/2017) LDL: 95 MG/DL (CALC) (06/08/2017) T (06/08/2017) Matteo Tobar MD Cardiology Follow up :S/p intervention to LAD diag. N o further chest pains or heartburn symptoms. S table. O n Brilinta, but will switch to Plavix. S he has begun to have tremors, and her kidney function has decreased and she was taken off Simvastatin. 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 Matteo Tobar MD Cardiology Follow up :Will try n ew compression stockings. Matteo Tobar MD Cardiology Follow up :Discuss resuming Simvastatin with nephrology. Matteo Tobar MD Cardiology:Patient's states she snores and will 'jerk' in her sleep. The restlessness is new since her cardiac cath. H as not been tested for sleep apnea. W ill check home sleep study. Matteo Tobar MD Cardiology:Currently on Lasix 80mg daily. W ill change to Lasix 40mg daily. Matteo Tobar MD Cardiology:Will chec k lipids in 1 month. Her updated medication list for this problem includes: Simvastatin 20 Mg Oral Tablet (Simvastatin) ..... One tab. daily Matteo Tobar MD Cardiology: B P today: 137/82 P rior BP: 173/84 (01/28/2017) Labs Reviewed: C reat: 1.6 (02/17/2017) C hol: 197 (02/17/2017) HDL: 42 (02/17/2017) T (02/17/2017) Matteo Tobar MD Cardiology:S/p inter vention to LAD diag. N o further chest pains or heartburn symptoms. S table. O n Brilinta, but will switch to Plavix. Matteo Tobar MD Cardiology:Recent st ress test showed partially reversible apical wall defect consistent with ischemia. Will set her up for a cardiac cath for further evaluation. P atient is allergic to dye. Matteo Tobar MD Cardiology:Swelling in her feet continues. JUWAN showed no abnormalities. Venous doppler showed significant venous insufficiency of GSV bilaterally, Left SFJ, and Left LSV. A s the primary concern is her abnormal stress test, will perform cardiac catheterization first, and assess abnormal venous US once her chest discomfort is resolved. Matteo Tobar MD Cardiology:Patient h as gout and elevated Creatinine. Normal PRO BNP and UA MCR. Matteo Tobar MD Cardiology:Random el evation per patient. BP today: 173/84 P rior BP: 160/82 (01/01/2017) Labs Reviewed: C reat: 1.7 (01/13/2017) Matteo Tobar MD Cardiology New Patie nt :She has severe osteoarthritis of her knees and thus she needs a pharmacological stress test. E xperiences a burning sensation in her chest on exertion. W ill schedule adenosine stress test and labs. Matteo Tobar MD Cardiology New Patie nt :Progresses throughout the day and has gotten worse throughout the last year. W ill schedule standing venous doppler and echo and labs. Matteo Tobar MD Cardiology New Patie nt : B P today: 160/82 Matteo Tobar MD Date Name Complete Echo Stress Regadenoson Complete Echo COMPREHENSIVE METABO LIC PANEL, W/EGFR LIPID PANEL COMPREHENSIVE METABO LIC PANEL, W/EGFR LIPID PANEL Sleep Study Home PROTHROMBIN TIME WIT H INR LIPID PANEL CBC (INCLUDES DIFF/P LT) BASIC METABOLIC PANE L W/EGFR CBC (INCLUDES DIFF/P LT) URINALYSIS, RANDOM, MICROALB/CREATININE COMPREHENSIVE METABO LIC PANEL, W/EGFR PROBNP, N TERMINAL Arterial Duplex Bi-L ower EX Venous Doppler Bilat eral LE - Reflux STR - Adenosine Complete Echo CBC (INCLUDES DIFF/P LT) URINALYSIS, RANDOM, MICROALB/CREATININE PROBNP, N TERMINAL COMPREHENSIVE METABO LIC PANEL, W/EGFR HISTORY OF PROCEDURES Procedure Date Procedure Name Provider Procedure Notes S tatus EKG Matteo Tobar MD completed EKG Matteo Tobar MD completed EKG Matteo Tobar MD completed SNOMED-CT: 44411545 Physical Exam, Performed: Pulse Exam of Foot Matteo Tobar MD completed SNOMED-CT: 690633825 [id number] Current Medications Documented Matteo Tobar MD completed SNOMED-CT: 17846382 Physical Exam, Performed: Pulse Exam of Foot Matteo Tobar MD completed SNOMED-CT: 331702054 126516 Current Medications Documented Matteo Tobar MD completed Stress EKG Manuel Guerra MD completed Regadenoson, 4 units Matteo Tobar MD completed Cardiolite, 2 units Matteo Tobar MD completed SPECT Images Bryan Badillo MD compl eted SNOMED-CT: 77770841 Physical Exam, Performed: Pulse Exam of Foot aMtteo Tobar MD completed EKG Matteo Tobar MD completed SNOMED-CT: 948801387 179604 Current Medications Documented Matteo Tobar MD completed
--- OUTSIDE RECORDS SUMMARY | 2024-09-03 09:13 | XMS_ITS | Clinical Summary ---
Author Organization [facility] Address [address] [place] [id number] Phone Care Team Providers Care Stoner Out Name Role Phone Aly Peterson DO Primary Care Provider [phone] Allergies Active Allergy Reactions Criticality Noted Date Comments Codeine Iodinated Contrast Media Rash Medium 03/23/2017 Penicillins Rash,Hives Medium 03/23/2017 Shellfish Allergy Rash Medium 03/23/2017 Sulfa Antibiotics 03/23/2017 Other reaction(s): Dizziness Medications Multiple Vitamin (MULTIVITAMIN) capsule 1 daily 0 8 Active clopidogrel (PLAVIX) 75 MG tablet 1 daily 0 8 Active Febuxostat (ULORIC) 40 MG tablet 1 daily 0 8 Active aspirin (ASPIR-LOW) 81 MG EC tablet 1 daily 0 8 Active acetaminophen (TYLENOL) 500 MG tablet 1 prn 0 8 Active gabapentin (NEURONTIN) 300 MG capsule 1 tid 0 8 Active nitroglycerin (NITROSTAT) 0.4 MG SL tablet nitroglycerin 0.4 mg sublingual tablet Active calcium carbonate (TUMS) 500 MG chewable tablet Chew 500 mg 1 (one) time each day Active hydrOXYzine (ATARAX) 10 MG tablet TAKE 1 TABLET BY MOUTH ONCE DAILY AT BEDTIME NEEDED FOR ITCHING 1 Active ketoconazole (NIZORAL) 2 % shampoo WASH HAIR THREE TIMES WEEKLY IN SHOWER 1 Active Cholecalcifero l 125 MCG (5000 UT) chewable tablet Chew Active simvastatin (ZOCOR) 40 MG tablet TAKE 1 TABLET BY MOUTH ONCE DAILY DOSE INCREASE 2 Active Nystop 957017 UNIT/GM powder Apply topically 2 (two) times a day 2 Active methocarbamol (ROBAXIN) 750 MG tablet Take 750 mg by mouth 3 (three) times a day if needed for muscle spams 2 Active Tradjenta 5 MG tablet TAKE 1 TABLET BY MOUTH ONCE DAILY IN THE MORNING 2 Active glimepiride (AMARYL) 2 MG tablet Take 2 mg by mouth Half pill qam Active lisinopril (PRINIVIL) 5 MG tablet Take 1 tablet by mouth once daily 30 tablet 2 Active calcitriol (ROCALTROL) 0.25 MCG capsule TAKE 1 CAPSULE BY MOUTH EVERY OTHER DAY 15 capsule 11 2 Active furosemide (LASIX) 40 MG tablet Take 1 tablet by mouth once daily 30 tablet 3 Active Active Problems Problem Noted Date Diagnosed Date Vitamin D deficiency 06/17/2020 Diabetes mellitus 11/28/2017 Type 2 diabetes mellitus wit h diabetic chronic kidney disease 08/09/2017 Chronic kidney disease, Stage IV (severe) 2017 Hyperlipidemia 08/09/2017 Gastro-esophageal reflux disease without esophag itis 08/09/2017 Gout 08/09/2017 Osteoarthritis of knee 08/09/2017 Snoring 04/29/2017 Coronary arteriosclerosis 04/29/2017 Coronary arteriosclerosis in [place] artery 03/23 Hypertensive disorder 12/31/2016 Resolved Problems Problem Noted Date Diagnosed Date Resolved Date Generalized edema 08/09/2017 03/02/2020 Immunizations Immunization Administration Dates Next Due Influenza TIV (IM) 03/25/2021, 0,05/08/2019(Deferred: Patient Refused) Family History Medical History Relation Comments Heart disease Father Cerebrovascular accident Mother Kidney disease Neg Hx Relation Status Comments Father Mother Social History Tobacco Use Types Packs/Day Years Used Date Smoking Tobacco: Never Smokeless Tobacco: Never Alcohol Use Standard Drinks/Week Comments No 0 (1 standard drink = 0.6 oz pur e alcohol) AUDIT-C Answer Date Recorded Frequency of Alcohol Consumption Never 08/14/2018 Average Number of Drinks Not on file Frequency of Binge Drinking Not on file 08/03 Comments Unknown Sex and Gender Information Value Date Recorded Sex Assigned at Not on file Legal Sex Female 8:27 AM [facility] Gender Identity Not on file Sexual Orientation Not on file Last Filed Vital Signs Vital Sign Reading Time Taken Comments Blood Pressure 122/80 12/24/2021 1:30 PM CDT Pulse 72 12/24/2021 1:30 PM CDT Temperature 36.2 C (97.1 F) 12/24/2021 1:30 PM CDT Respiratory Rate - - Oxygen Saturation - - Inhaled Oxygen Concentration - - Weight 95.3 kg (210 lb) 12/24/2021 1:30 PM CDT Height 165.1 cm (5' 5) 12/24/2021 1:30 PM CDT Body Mass Index 34.95 12/24/2021 1:30 PM CDT Plan of Treatment Health Maintenance Due Date Last Done Comments Pneumococcal PPSV23/PCV13 65 + Years / Low and Medium Risk (1 of 4 - PCV) 06/15/1993 Influenza Vaccine (Season Ended) 2024 03/25/20, 03/05/2020 Insurance [facility] Care Teams Stoner Out Relationship Specialty Start Date End Date Aly Peterson DO [address] [place] [address] PCP - General Internal Medicine 06/17/20
[2024-09-03 09:16] LABS: Alanine Aminotransferase 33 U/L (6-35); Albumin Level 3.9 g/dL (3.5-5.1); Alkaline Phosphatase 251 U/L (38-126); Anion Gap 13 mmol/L (4-12); Aspartate Amino Transferase 32 U/L (14-36); Bilirubin,Total 0.4 mg/dL (0.2-1.3); Blood Urea Nitrogen 32 mg/dL (7-17); Calcium 9.4 mg/dL (8.4-10.2); Carbon Dioxide 22 mmol/L (22-30); Chloride 107 mmol/L (98-107); Estimated CRCL calculation 16 ml/min; Estimated Glomerular Filt Rate 16; Glucose 152 mg/dL (65-110); Lipase 60 U/L (23-300); Potassium 4.1 mmol/L (3.4-5.0); Sodium 142 mmol/L (137-145)
[2024-09-03 09:29] LABS: Lactic Acid Reflex 1.4 mmol/L (0.7-2.0)
[2024-09-03 09:33] LABS: Anisocytosis 1+; Platelet Estimate Adequate (Adequate); Schistocytes None Seen
[2024-09-03 10:51] VITALS: BP 144/71; PULSE 83; RESP 15; O2SAT 98
--- NOTE | 2024-09-03 10:54 | PC.NURSE ---
Bedside report given to Marah Villa RN, all questions answered
[2024-09-03 12:02] VITALS: BMI 33.5
--- NOTE | 2024-09-03 12:02 | ADMGEN ---
This patient, Kori Arellano, was admitted to [facility] Surg Room 324-02. Patient/family oriented to hospital policies and general routines including ID bracelet, bed and alarms, visiting hours, pain management, procedures, bathroom and other care routines, personal items, smoking policy, room service/diet, and visiting hours. Information on how to activate the Rapid Response Team has been discussed. Patient/Family are encouraged to report perceived risks to care and to ask questions if they do not understand what they are told or what they should do.
[2024-09-03] MEDS: SODIUM CHLORIDE 0.9% IV 1,000 ML 125 ML IV CONT ×2 (12:13→21:28)
[2024-09-03 12:48] VITALS: BP 148/72; PULSE 82; RESP 16; TEMP 36.7; O2SAT 100
--- NOTE | 2024-09-03 16:46 | P.HP_ITS ---
H&P: HPI History of Present Illness Date/Time: 09/03/24 16:46 Chief Complaint: constipation Narrative: 79 y/o F with PMH of pulmonary hypertension, CHF, anemia, CKD stage 4, coronary artery disease, hyperlipidemia, hypertension, diabetes, and peripheral artery disease presents here with constipation. The patient presents here from home via EMS on 09/03 for further evaluation of constipation. She reports she has not passed a bowel movement for the past XX days. This was precipitated by diarrhea 2 weeks ago and has been taking Imodium. she reports she has been taking it 6 times a day for the last 2 weeks. Since starting Imodium she reports she has been dribbling. Constipation is accompanied by a rectal pain without rectal bleeding. She denies accompanying fever, chills, nausea, vomiting, or abdominal pain. Initial VS at presentation: 98? F, HR 86, RR 16, 165/74, and 97% on RA. ED workup showed: WBC 11.5, hemoglobin 10.6, creatinine 2.78 and GFR 16 (previously 2.65 and GFR 18 on 07/24/2024), lactic 1.4, UA consistent with UTI. CT of the abdomen/pelvis showed subcentimeter bowel stool at the rectum which can be seen with constipation with fecal impaction, no other acute intra-abdomi nal/ pelvic process, nonobstructing left nephrolithiasis filling the calyces of the left kidney, diverticulosis, small fat containing umbilical hernia bilateral fat containing inguinal hernias. Review of Systems Review of Systems: All systems reviewed & are unremarkable except as noted in HPI and below PMFSH Past Medical History Medical History Encounter for immunization Neurocognitive disorder Intertrochanteric fracture of left hip Psychogenic formication Pulmonary HTN Metabolic acidosis NATE (acute kidney injury) Sepsis CHF (congestive heart failure), NYHA class I Anemia Postmenopausal Chronic kidney disease, stage 4 (severe) Coronary artery disease involving [place] heart without angina pectoris Diabetic peripheral neuropathy Hyperlipidemia, unspecified Hypertension, essential Thrombosed external hemorrhoid Type 2 diabetes mellitus with hyperglycemia PAD (peripheral artery disease) Surgical History Surgical History History of hip surgery with femur H/O heart artery stent Hx of tonsillectomy History of cholecystectomy Family History Family History Mother Cerebrovascular accident Diabetes mellitus Family history of cardiovascular disease Father Myocardial infarction Sibling Colon cancer Congestive heart failure Other Hypertension Social History Social History Social History: The patient had 3 children. 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 Her Trey is the durable power litigation attorney associate for healthcare. The patient is a full code. Who is a lifelong nonsmoker. She does not use any alcohol marijuana or illicit drugs. Code status full code Smoking status: Never smoker Second hand tobacco smoke exposure: No Alcohol intake: never Substance use: never Substance use type: does not use Do You Feel Safe in your Home?: Yes Lack of Transportation: No Lack of Food: Never True Current Housing: I Have Housing Concerned About Future Housing: No Difficulty Paying Gas/Electric Bills: No Difficulty Paying for Meds: No Currently Unemployed: No Education: High School Diploma/GED Difficulty w/ Childcare or Family Care: No Living arrangements: with family Occupation/Education: retired Gender identity (if verbalized by the patient): Female Sexual Orientation (if Verbalized by the Patient): Straight or Heterosexual Spiritual care concerns: No Agree to blood products: Yes Meds Home Medications and Allergies Home Medications ?Medication ?Instructions ?Recorded ?Confirmed ?Type flash glucose scanning reader #1 ea 11/05/22 09/03/24 Rx (FreeStyle Ronal 2 [place]) acetaminophen 325 mg capsule 650 mg (2 x 325 mg) PO Q6H PRN 01/22/23 09/03/24 Rx (Tylenol) pain #30 caps aspirin 81 mg tablet,delayed 81 mg PO DAILY #30 tabs 09/24/23 09/03/24 Rx release (Adult Aspirin Regimen) atorvastatin 80 mg tablet 80 mg PO DAILY #90 tabs 03/14/24 09/03/24 Rx flash glucose sensor (FreeStyle #6 ea 07/03/24 09/03/24 Rx Ronal 2 Sensor kit) nystatin 100,000 unit/gram topical See Rx Instructions .Route 07/17/24 09/03/24 Rx cream .COMPLEX fungal infection #30 grams pantoprazole 20 mg tablet,delayed 20 mg PO QAM #90 tabs 07/18/24 09/03/24 Rx release carvedilol 6.25 mg tablet (Coreg) 6.25 mg PO Q12HR #60 tabs 07/24/24 09/03/24 Rx clopidogrel 75 mg tablet See Rx Instructions .Route 07/25/24 09/03/24 Rx .COMPLEX #30 tabs amlodipine 10 mg tablet See Rx Instructions .Route 08/17/24 09/03/24 Rx .COMPLEX #90 tabs glipizide 2.5 mg tablet, extended See Rx Instructions .Route 08/21/24 09/03/24 Rx release 24 hr .COMPLEX #90 tabs ondansetron 4 mg disintegrating 4 mg PO Q8H PRN nausea and 08/21/24 09/03/24 Rx tablet vomiting #20 tabs dicyclomine 20 mg tablet 20 mg PO TID PRN abdominal pain 09/03/24 09/03/24 History fluticasone propionate 50 2 spray intranasal DAILY PRN nasal 09/03/24 09/03/24 History mcg/actuation nasal congestion spray,suspension Allergies Allergy/AdvReac Type Severity Reaction Status Date / Time codeine Allergy Intermediate Rash Verified 09/03/24 12:38 Penicillins Allergy Intermediate Rash Verified 09/03/24 12:38 Sulfa (Sulfonamide Allergy Intermediate cheeks get Verified 09/03/24 12:38 Antibiotics) really red Atarax Allergy Unknown deep sleep Unverified 11/05/23 08:30 hydroxyzine (From Atarax) AdvReac Unknown deep sleep Verified 09/03/24 12:38 mulberry Allergy Mild Rash Uncoded 09/03/24 11:23 Vital Signs Vital Signs - 24 hr 09/03/24 08:36 09/03/24 09:02 09/03/24 10:51 Temperature Pulse Rate 86 81 83 Respiratory Rate 16 20 15 Blood Pressure 165/74 H 135/76 144/71 H Pulse Oximetry 97 96 98 Oxygen Delivery Room Air 09/03/24 12:30 09/03/24 12:48 Temperature 98.0 F Pulse Rate 82 Respiratory Rate 16 Blood Pressure 148/72 H Pulse Oximetry 100 Oxygen Delivery Room Air Exam Const: General: comfortable and no acute distress Other: , female, elderly, nontoxic appearance HENMT: Face/Nose/Sinus: Normal nares present Mouth: Yes moist mucous membranes Eyes: General: appearance normal, both eyes and all related structures Sclera: sclerae normal Pupils: Equal, round and reactive pupils present EOM: EOMs intact bilaterally Resp: Effort & Inspection: normal respiratory effort Auscultation: clear to auscultation bilaterally Other: +cough, dry Cardio: Rate: regular rate Rhythm: regular rhythm Other: S1-S2 present without murmur, rub, ectopy GI: Other: Abdomen soft, nondistended, nontender. Normoactive bowel sounds in all quadrants. Skin: General skin exam: normal color and no rashes or lesions noted Wou nds: no wounds Neuro: Speech: normal speech Motor exam (neuro): 5/5 motor strength present throughout Sensory Exam: normal sensation Other: A&O x4 Extrem: General: normal to inspection Psych: Mental Status: mental status grossly normal Affect: normal affect Other: good insight and judgment, pleasant H&P: Results Labs Labs: Short CBC 09/03/24 Range/Units 08:58 WBC 11.5 H (4.5-10.0) K/mm3 Hgb 10.6 L (12.0-15.0) g/dL Hct 36.2 L (37.0-47.0) % Plt Count 332 (150-375) k/mm3 BMP 09/03/24 08:58 Sodium 142 Potassium 4.1 Chloride 107 Carbon Dioxide 22 BUN 32 H Creatinine 2.78 H Glucose 152 H Calcium 9.4 Liver Function 09/03/24 Range/Units 08:58 Total Bilirubin 0.4 (0.2-1.3) mg/dL AST 32 (14-36) U/L ALT 33 (6-35) U/L Alkaline Phosphatase 251 H (38-126) U/L Albumin 3.9 (3.5-5.1) g/dL Urine 09/03/24 Range/Units 08:59 Urine Color Yellow (Yellow) Urine Appearance Clear (Clear) Urine pH 5.0 (5.0-9.0) Ur Specific [place] 1.013 (1.001-1.035) Urine Protein 1+ H (Negative) mg/dL Urine Glucose (UA) Negative (Negative) mg/dL Assessment and Plan Assessment and plan (1) UTI (urinary tract infection): Code(s): N39.0 - Urinary tract infection, site not specified Status: Acute Assessment and Plan: - UA consistent with UTI - previous micro reviewed, e. coli in 09/2023 that was resistant to unasyn, bactrim, cipro, and levaquin - started on ceftriaxone on 09/03 - follow culture (2) Constipation: Code(s): K59.00 - Constipation, unspecified Status: Acute Assessment and Plan: - Likely secondary to constipation, see CT. - IV fluids, stool softeners, and tucks pads - fleet enema x1 - monitor I&Os (3) Type 2 diabetes mellitus with hyperglycemia: Code(s): E11.65 - Type 2 diabetes mellitus with hyperglycemia Status: Chronic Assessment and Plan: - hypoglycemia protocol - POC blood glucose ACHS - home medication: glipizide - correct regimen ordered - high dose TIDWM - A1C ordered (4) Chronic kidney disease, stage 4 (severe): Code(s): N18.4 - Chronic kidney disease, stage 4 (severe) Status: Acute Assessment and Plan: - creatinine2.78, GFR 16. Previously 2.65 and GFR 18 on 07/24/2024. - trend renal function - trend electrolytes, correct as needed (5) Hypertension, essential: Code(s): I10 - Essential (primary) hypertension Status: Chronic Assessment and Plan: - chronic, currently 148/72 - continue home medications: carvedilol, amlodipine - monitor Plan Diet: Diabetic GI Prophylaxis: pantoprazole p.o. DVT Prophylaxis: SCDs IV fluids: NS at 125 mL/hour Lines/Tubes: peripheral IV Code Status: full code Quality VTE Prophylaxis VTE prophylaxis: mechanical ordered Hospitalist [facility] Advance Care Plan I have confirmed that the patient's Advanced Care Plan is present, code status is documented, or surrogate decision maker is listed in patient medical record.: Yes Medication Reconciliation I have utilized all available resources to obtain, update and review the patients current medications (includes all prescriptions, OTC, herbals, cannabis, and nutritional supplements).: Yes
[2024-09-03] MEDS: ACETAMINOPHEN 325 MG TABLET 650 MG PO (17:36)
[2024-09-03 18:00] LABS: Glucose Point of Care 137 mg/dl (65-105)
[2024-09-03 20:35] VITALS: BP 133/98; PULSE 89; RESP 16; TEMP 37; O2SAT 96
[2024-09-03 21:04] VITALS: O2SAT 98
[2024-09-03] MEDS: DOCUSATE SODIUM 100 MG CAPSULE PO (21:26)
[2024-09-03] MEDS: carvediloL 6.25 MG TABLET PO (21:26)
[2024-09-03] MEDS: guaiFENesin/DEXTROMETHORPHAN 10 ML UDC 5 ML PO (23:33)
[2024-09-04] MEDS: ACETAMINOPHEN 325 MG TABLET 650 MG PO ×2 (01:09→18:52)
[2024-09-04 06:00] VITALS: BP 136/52; PULSE 80; RESP 16; TEMP 37; O2SAT 97
[2024-09-04 06:30] LABS: Basophils Percent Auto 0.4 % (0.2-1.2); Eosinophils Absolute Auto 0.3 K/mm3 (0-0.3); Eosinophils Percent Auto 2.4 % (0-4.4); Hematocrit 32.2 % (37.0-47.0); Immature Granulocyte Absolute 0.08 K/mm3 (0.00-0.031); Immature Granulocyte Percent A 0.8 % (0-0.5); Lymphocytes Absolute Auto 1.45 K/mm3 (0.9-3.2); Lymphocytes Percent Auto 13.6 % (18.3-44.2); Mean Corpuscular Hemoglobin 25.4 pg (26-34); Mean Platelet Volume 9.6 fl (7.4-10.4); Monocytes Absolute Auto 0.8 K/mm3 (0.1-0.6); Monocytes Percent Auto 7.6 % (2.6-8.5); Neutrophils Percent Auto 75.2 % (45.5-73.1); Platelet Count Result 285 k/mm3 (150-375); Red Blood Count 3.54 M/mm3 (4.2-5.4); Red Cell Distribution Width 17.9 % (11.5-14.5); White Blood Count 10.7 K/mm3 (4.5-10.0)
[2024-09-04 06:37] LABS: Alanine Aminotransferase 22 U/L (6-35); Albumin Level 3.2 g/dL (3.5-5.1); Alkaline Phosphatase 184 U/L (38-126); Anion Gap 9 mmol/L (4-12); Aspartate Amino Transferase 24 U/L (14-36); Bilirubin,Total 0.3 mg/dL (0.2-1.3); Blood Urea Nitrogen 26 mg/dL (7-17); Calcium 8.8 mg/dL (8.4-10.2); Carbon Dioxide 22 mmol/L (22-30); Chloride 113 mmol/L (98-107); Estimated CRCL calculation 18 ml/min; Estimated Glomerular Filt Rate 19; Glucose 136 mg/dL (65-110); Potassium 3.6 mmol/L (3.4-5.0); Sodium 144 mmol/L (137-145)
[2024-09-04 06:59] LABS: Anisocytosis 1+; Platelet Estimate Adequate (Adequate); Schistocytes None Seen
[2024-09-04 08:11] LABS: Glucose Point of Care 136 mg/dl (65-105)
[2024-09-04] MEDS: CLOPIDOGREL BISULFATE 75 MG TABLET PO (08:37)
[2024-09-04] MEDS: ATORVASTATIN 40 MG TABLET 80 MG PO (08:37)
[2024-09-04] MEDS: PANTOPRAZOLE SOD SESQUIHYDRATE 20 MG TAB PO (08:37)
[2024-09-04] MEDS: amLODIPine BESYLATE 10 MG TABLET BY MOUTH (08:37)
[2024-09-04] MEDS: carvediloL 6.25 MG TABLET PO ×2 (08:37→20:17)
[2024-09-04] MEDS: ASPIRIN 81 MG ENTERIC TABLET PO (08:37)
[2024-09-04] MEDS: DOCUSATE SODIUM 100 MG CAPSULE PO ×2 (08:37→20:17)
[2024-09-04] MEDS: glipiZIDE XL 2.5 MG TAB.ER.24 PO (08:38)
[2024-09-04 11:34] LABS: Glucose Point of Care 171 mg/dl (65-105)
[2024-09-04] MEDS: SODIUM CHLORIDE 0.9% IV 1,000 ML 125 ML IV CONT ×2 (13:47→23:59)
[2024-09-04] MEDS: MICONAZOLE NITRATE 2% CREAM 30 GM TUBE 1 APPLIC TOPICAL ×2 (13:49→16:50)
[2024-09-04 13:55] VITALS: BP 113/58; PULSE 76; RESP 18; TEMP 36.4; O2SAT 98
--- NOTE | 2024-09-04 15:15 | PM.IMPN ---
Progress Note: A&P Assessment and Plan (1) UTI (urinary tract infection): Qualifiers: Urinary tract infection type: acute cystitis Hematuria presence: with hematuria Qualified Code(s): N30.01 - Acute cystitis with hematuria Code(s): N39.0 - Urinary tract infection, site not specified Status: Acute Assessment and Plan: -suspected uti - started on ceftriaxone on 09/03 - watch uc (2) Constipation: Code(s): K59.00 - Constipation, unspecified Status: Acute Assessment and Plan: - continue fluids - fleet enema x1 yesterday - today try soap suds enema for better results (3) Type 2 diabetes mellitus with hyperglycemia: Code(s): E11.65 - Type 2 diabetes mellitus with hyperglycemia Status: Chronic Assessment and Plan: - accuchecks, ssi - correct regimen ordered - high dose TIDWM - A1C ordered (4) Chronic kidney disease, stage 4 (severe): Code(s): N18.4 - Chronic kidney disease, stage 4 (severe) Status: Acute Assessment and Plan: - creatinine2.78, GFR 16. - watch bmp continue iv fluids (5) Hypertension, essential: Code(s): I10 - Essential (primary) hypertension Status: Chronic Assessment and Plan: bp is stable - continue home medications: carvedilol, amlodipine Plan uri - add robuitissin cough syrup Subjective Date/time seen: 09/04/24 15:15 Interval history: pt admitted with fecal impactation on ct scan pt tried fleet enema yesterday today pt having some stool watery plan to try soap suds enema for better results pt has history of dementia, dm htn and hld Review of Systems Review of Systems: ongoing constipation and mild abdominal pains some watery stool today pt complains of a cough which she caught from her Exam Const: General: comfortable and no acute distress Other: , female, elderly, nontoxic appearance HENMT: Face/Nose/Sinus: Normal nares present Mouth: Yes moist mucous membranes Eyes: General: appearance normal, both eyes and all related structures Sclera: sclerae normal Pupils: Equal, round and reactive pupils present EOM: EOMs intact bilaterally Resp: Effort & Inspection: normal respiratory effort Auscultation: clear to auscultation bilaterally Other: +cough, dry Cardio: Rate: regular rate Rhythm: regular rhythm Other: S1-S2 present GI: Other: Abdomen soft, nondistended, nontender. Normoactive bowel sounds in all quadrants. Skin: General skin exam: normal color and no rashes or lesions noted Wounds: no wounds Neuro: Cranial nerves: Yes Equal, round and reactive pupils present Speech: normal speech Motor exam (neuro): 5/5 motor strength present throughout Sensory Exam: normal sensation Other: A&O x4 Extrem: General: normal to inspection Psych: Mental Status: mental status grossly normal Affect: normal affect Other: good insight and judgment, pleasant Objective Data Vital Signs Vital Signs: Vital Signs - 24 hr 09/03/24 20:00 09/03/24 20:35 09/03/24 21:04 Temperature 37.0 C Pulse Rate 89 Respiratory Rate 16 Blood Pressure 133/98 H Pulse Oximetry 96 98 Oxygen Delivery Room Air Room Air Fraction of Inspired Oxygen 21 09/04/24 06:00 09/04/24 08:40 09/04/24 13:55 Temperature 37.0 C 36.4 C Pulse Rate 80 76 Respiratory Rate 16 18 Blood Pressure 136/52 L 113/58 L Pulse Oximetry 97 98 Oxygen Delivery Room Air Fraction of Inspired Oxygen Intake/Output Intake/Output: Intake & Output 09/01/24 09/02/24 09/03/24 09/04/24 23:59 23:59 23:59 23:59 Intake Total 2290 1476 Output Total 100 Balance 2190 1476 Meds/Results Medications: Active Medications Generic Name Dose Route Start Last Admin Trade Name Freq PRN Reason Stop Dose Admin Acetaminophen 650 mg 09/03/24 10:46 09/04/24 01:09 Acetaminophen 325 Mg Tablet PO 650 mg Q4H PRN Administration Mild Pain (1-3) or Fever Amlodipine Besylate 10 mg 09/04/24 09:00 09/04/24 08:37 Amlodipine Besylate 10 Mg Tablet BY MOUTH 10 mg DAILY JACKY Administration Aspirin 81 mg 09/04/24 09:00 09/04/24 08:37 Aspirin 81 Mg Enteric Tablet PO 81 mg DAILY JACKY Administration Atorvastatin Calcium 80 mg 09/04/24 09:00 09/04/24 08:37 Atorvastatin 40 Mg Tablet PO 80 mg DAILY JACKY Administration Carvedilol 6.25 mg 09/03/24 21:00 09/04/24 08:37 Carvedilol 6.25 Mg Tablet PO 6.25 mg Q12HR JACKY Administration Clopidogrel Bisulfate 75 mg 09/04/24 09:00 09/04/24 08:37 Clopidogrel Bisulfate 75 Mg Tablet PO 75 mg DAILY JACKY Administration Dextrose 12.5 gm 09/03/24 17:17 Dextrose 50% 25 Gm/50 Ml Syringe IV PUSH PRN PRN Hypoglycemia Protocol Dicyclomine HCl 20 mg 09/03/24 17:16 Dicyclomine Hcl 10 Mg Capsule PO TID PRN abdominal pain Docusate Sodium 100 mg 09/03/24 21:00 09/04/24 08:37 Docusate Sodium 100 Mg Capsule PO 100 mg Q12HR JACKY Administration Fluticasone Propionate 2 spray 09/03/24 17:16 Fluticasone Propionate 0.05% Na Spr 16 Gm Btl (*Bkc) NASAL DAILY PRN nasal congestion Glipizide 2.5 mg 09/04/24 08:00 09/04/24 08:38 Glipizide Xl 2.5 Mg Tab.Er.24 PO 2.5 mg DAILY@0800 JACKY Administration Glucagon 1 mg 09/03/24 17:17 Glucagon For Inj 1 Mg Vial IM PRN PRN Hypoglycemia Protocol Glucose 15 gm 09/03/24 17:17 Glucose Oral Gel 15 Gm Of Glucse In 37.5 Gm Tube PO PRN PRN Hypoglycemia Protocol Ceftriaxone Sodium 1 gm in 50 mls @ 100 mls/hr 09/04/24 09:00 09/04/24 08:37 Rocephin 1 Gm/Ns 50 Ml IVPB 100 mls/hr Q24H JACKY Administration Sodium Chloride 1,000 mls @ 125 mls/hr 09/03/24 10:50 09/04/24 13:48 Normal Saline Iv IV CONT Not Given .Q8H JACKY Dextrose 1,000 mls @ 100 mls/hr 09/03/24 17:17 Dextrose 5% 1,000 Ml IVPB PRN PRN Hypoglycemia Protocol Insulin Aspart 4 - 8 units 09/03/24 17:00 09/04/24 12:05 Insulin Aspart (*Bkc) 100 Units/Ml SUB-Q Not Given TIDWM JACKY Protocol Miconazole Nitrate 1 applic 09/03/24 17:00 09/04/24 13:49 Miconazole Nitrate 2% Cream 30 Gm Tube TOPICAL 1 applic BID JACKY Administration Ondansetron HCl 4 mg 09/03/24 17:16 Ondansetron Inj 4 Mg/2 Ml Vial IV PUSH Q6H PRN Nausea And Vomiting Ondansetron HCl 4 mg 09/03/24 17:16 Ondansetron Hcl Odt 4 Mg Tablet PO Q8H PRN nausea and vomiting Pantoprazole Sodium 20 mg 09/04/24 09:00 09/04/24 08:37 Pantoprazole Sod Sesquihydrate 20 Mg Tab PO 20 mg QAM JACKY Administration Witch Bisi 1 pad 09/03/24 17:20 Witch Bisi 40 Pads TOPICAL PRN PRN Perineal Discomfort Radiology Results: ITS Impressions Abdomen/Pelvis CT 09/03/24 09:54 IMPRESSION: 1. Subcentimeter ball of stool the rectum which can be seen with constipation with fecal impaction. No other acute intra-abdominal/pelvic process. 2. Nonobstructing left nephrolithiasis filling the calyces of the left kidney. 3. Diverticulosis. 4. Small fat-containing umbilical hernia bilateral fat-containing inguinal hernias. Labs Labs: Laboratory Results - last 24 hr 09/03/24 09/04/24 09/04/24 17:57 06:09 07:48 WBC 10.7 H RBC 3.54 L Hgb 9.0 L Hct 32.2 L MCV 91.0 MCH 25.4 L MCHC 28.0 L RDW 17.9 H Plt Count 285 MPV 9.6 Immature Gran % (Auto) 0.8 H Neut % (Auto) 75.2 H Lymph % (Auto) 13.6 L [place] % (Auto) 7.6 Eos % (Auto) 2.4 Baso % (Auto) 0.4 Lymph # (Auto) 1.45 [place] # (Auto) 0.8 H Eos # (Auto) 0.3 Baso # (Auto) 0.0 Abs Immat Gran (auto) 0.08 H Absolute Neuts (auto) 8.0 H Absolute Nucleated RBC 0.000 Band Neutrophils % Not Reportable Nucleated RBC % 0.0 Platelet Estimate Adequate Anisocytosis 1+ Schistocytes None seen Sodium 144 Potassium 3.6 Chloride 113 H Carbon Dioxide 22 Anion Gap 9 BUN 26 H Creatinine 2.39 H Estim Creat Clear Calc 18 Estimated GFR 19 L Glucose 136 H POC Capillary Glucose 137 H 136 H Hemoglobin A1c 7.0 H Calcium 8.8 Total Bilirubin 0.3 AST 24 ALT 22 Alkaline Phosphatase 184 H Total Protein 6.0 L Albumin 3.2 L 09/04/24 11:32 WBC RBC Hgb Hct MCV MCH MCHC RDW Plt Count MPV Immature Gran % (Auto) Neut % (Auto) Lymph % (Auto) [place] % (Auto) Eos % (Auto) Baso % (Auto) Lymph # (Auto) [place] # (Auto) Eos # (Auto) Baso # (Auto) Abs Immat Gran (auto) Absolute Neuts (auto) Absolute Nucleated RBC Band Neutrophils % Nucleated RBC % Platelet Estimate Anisocytosis Schistocytes Sodium Potassium Chloride Carbon Dioxide Anion Gap BUN Creatinine Estim Creat Clear Calc Estimated GFR Glucose POC Capillary Glucose 171 H Hemoglobin A1c Calcium Total Bilirubin AST ALT Alkaline Phosphatase Total Protein Albumin
[2024-09-04 16:38] LABS: Glucose Point of Care 106 mg/dl (65-105)
[2024-09-04 20:17] VITALS: PULSE 83
[2024-09-04 21:56] LABS: Glucose Point of Care 166 mg/dl (65-105)
[2024-09-04 22:00] VITALS: BP 130/49; PULSE 83; RESP 18; TEMP 36.9; O2SAT 98
[2024-09-04 23:34] VITALS: O2SAT 98
[2024-09-05 06:00] VITALS: BP 126/52; PULSE 78; RESP 18; TEMP 36.8; O2SAT 99
[2024-09-05 07:13] LABS: Anion Gap 7 mmol/L (4-12); Blood Urea Nitrogen 24 mg/dL (7-17); Calcium 8.5 mg/dL (8.4-10.2); Carbon Dioxide 23 mmol/L (22-30); Chloride 114 mmol/L (98-107); Estimated CRCL calculation 20 ml/min; Estimated Glomerular Filt Rate 21; Glucose 114 mg/dL (65-110); Potassium 3.7 mmol/L (3.4-5.0); Sodium 144 mmol/L (137-145)
[2024-09-05 08:00] VITALS: O2SAT 99
[2024-09-05 09:05] LABS: Glucose Point of Care 129 mg/dl (65-105)
[2024-09-05] MEDS: amLODIPine BESYLATE 10 MG TABLET BY MOUTH (09:28)
[2024-09-05] MEDS: ASPIRIN 81 MG ENTERIC TABLET PO (09:28)
[2024-09-05] MEDS: PANTOPRAZOLE SOD SESQUIHYDRATE 20 MG TAB PO (09:28)
[2024-09-05 09:32] VITALS: PULSE 80
[2024-09-05] MEDS: MICONAZOLE NITRATE 2% CREAM 30 GM TUBE 1 APPLIC TOPICAL ×2 (09:32→16:39)
[2024-09-05] MEDS: glipiZIDE XL 2.5 MG TAB.ER.24 PO (09:32)
[2024-09-05] MEDS: ATORVASTATIN 40 MG TABLET 80 MG PO (09:32)
[2024-09-05] MEDS: DOCUSATE SODIUM 100 MG CAPSULE PO (09:32)
[2024-09-05] MEDS: CLOPIDOGREL BISULFATE 75 MG TABLET PO (09:32)
[2024-09-05] MEDS: carvediloL 6.25 MG TABLET PO ×2 (09:32→20:09)
[2024-09-05] MEDS: polyethylene glycoL 3350 17 GM POWD.PACK PO ×2 (11:47→16:39)
[2024-09-05] MEDS: guaiFENesin/DEXTROMETHORPHAN 10 ML UDC PO ×2 (11:47→22:46)
[2024-09-05] MEDS: BENZONATATE 100 MG CAPSULE 200 MG PO ×2 (11:48→20:08)
[2024-09-05] MEDS: BISACODYL 10 MG SUPPOSITORY RECTAL (11:48)
[2024-09-05 12:15] LABS: Glucose Point of Care 115 mg/dl (65-105)
[2024-09-05 12:40] VITALS: BMI 33.5
[2024-09-05 14:00] VITALS: BP 147/63; PULSE 86; RESP 22; TEMP 36.7; O2SAT 98
--- NOTE | 2024-09-05 14:31 | PCPTNOTE ---
Attempted PT evaluation, nursing requested therapy see at later time due to pt using restroom at this time. Will follow.
--- NOTE | 2024-09-05 14:38 | PCOTNOTE ---
Attempted OT evaluation, nursing requested therapy see at later time due to pt's discomfort from constipation at this time. Will follow.
--- NOTE | 2024-09-05 15:25 | PC.NURSE ---
Dr Garzon notified that patient has a formed ball of stool in rectum that she cannot get out. New orders received.
[2024-09-05] MEDS: WITCH HAZEL 40 PADS 1 PAD TOPICAL ×2 (16:43→20:27)
--- NOTE | 2024-09-05 17:02 | P.PNIM_ITS ---
Progress Note: A&P Assessment and Plan (1) UTI (urinary tract infection): Qualifiers: Urinary tract infection type: acute cystitis Hematuria presence: with hematuria Qualified Code(s): N30.01 - Acute cystitis with hematuria Code(s): N39.0 - Urinary tract infection, site not specified Status: Acute Assessment and Plan: -suspected uti - started on ceftriaxone on 09/03 - watch uc (2) Constipation: Code(s): K59.00 - Constipation, unspecified Status: Acute Assessment and Plan: - continue fluids - fleet enema x1 yesterday - today try soap suds enema for better results (3) Type 2 diabetes mellitus with hyperglycemia: Code(s): E11.65 - Type 2 diabetes mellitus with hyperglycemia Status: Chronic Assessment and Plan: - accuchecks, ssi - correct regimen ordered - high dose TIDWM - A1C ordered (4) Chronic kidney disease, stage 4 (severe): Code(s): N18.4 - Chronic kidney disease, stage 4 (severe) Status: Acute Assessment and Plan: - creatinine2.78, GFR 16. - watch bmp continue iv fluids (5) Hypertension, essential: Code(s): I10 - Essential (primary) hypertension Status: Chronic Assessment and Plan: bp is stable - continue home medications: carvedilol, amlodipine Plan patient still complains of abdominal pain and constipation, will increase Miralax to BID and gave Dulcolax supp without any improvement, repeat KUB still shows colon loaded with stool, no obstruction, and patient still c/o abdominal pain, will give fleet enema, will monitor, will encourage patient to ambulate and work with PT. uri - add robuitissin cough syrup Subjective Date/time seen: 09/05/24 17:02 Interval history: pt admitted with fecal impactation on ct scan pt tried fleet enema yesterday today pt having some stool watery plan to try soap suds enema for better results pt has history of dementia, dm htn and hld patient still complains of abdominal pain and constipation, will increase Miralax to BID and gave Dulcolax supp without any improvement, repeat KUB still shows colon loaded with stool, no obstruction, and patient still c/o abdominal pain, will give fleet enema, will monitor, will encourage patient to ambulate and work with PT. Review of Systems Review of Systems: ongoing constipation and mild abdominal pains some watery stool today pt complains of a cough which she caught from her All systems reviewed & are unremarkable except as noted in HPI and below Exam Narrative: Patient is comfortable, NAD HEENT: eyes are clear and none icteric LUNGS:CTA HEART: RR S1S2 ABD: BS+, Soft and nontender Lower extremities: no edema SKIN: nonjaundiced Neuro: grossly intact. Objective Data Vital Signs Vital Signs: Vital Signs - 24 hr 09/04/24 20:17 09/04/24 22:00 09/04/24 23:34 Temperature 36.9 C Pulse Rate 83 83 Respiratory Rate 18 Blood Pressure 130/49 L Pulse Oximetry 98 98 Oxygen Delivery Autopap 09/05/24 06:00 09/05/24 08:00 09/05/24 09:32 Temperature 36.8 C Pulse Rate 78 80 Respiratory Rate 18 Blood Pressure 126/52 L Pulse Oximetry 99 99 Oxygen Delivery Room Air 09/05/24 14:00 Temperature 36.7 C Pulse Rate 86 Respiratory Rate 22 H Blood Pressure 147/63 H Pulse Oximetry 98 Oxygen Delivery Intake/Output Intake/Output: Intake & Output 09/02/24 09/03/24 09/04/24 09/05/24 23:59 23:59 23:59 23:59 Intake Total 2290 2998 520 Output Total 100 Balance 2190 2998 520 Meds/Results Medications: Active Medications Generic Name Dose Route Start Last Admin Trade Name Freq PRN Reason Stop Dose Admin Acetaminophen 650 mg 09/03/24 10:46 09/04/24 18:52 Acetaminophen 325 Mg Tablet PO 650 mg Q4H PRN Administration Mild Pain (1-3) or Fever Amlodipine Besylate 10 mg 09/04/24 09:00 09/05/24 09:28 Amlodipine Besylate 10 Mg Tablet BY MOUTH 10 mg DAILY JACKY Administration Aspirin 81 mg 09/04/24 09:00 09/05/24 09:28 Aspirin 81 Mg Enteric Tablet PO 81 mg DAILY JACKY Administration Atorvastatin Calcium 80 mg 09/04/24 09:00 09/05/24 09:32 Atorvastatin 40 Mg Tablet PO 80 mg DAILY JACKY Administration Benzonatate 200 mg 09/05/24 13:00 09/05/24 11:48 Benzonatate 100 Mg Capsule PO 200 mg TID JACKY Administration Bisacodyl 10 mg 09/05/24 11:36 09/05/24 11:48 Bisacodyl 10 Mg Suppository RECTAL 10 mg QAM PRN Administration Constipation Carvedilol 6.25 mg 09/03/24 21:00 09/05/24 09:32 Carvedilol 6.25 Mg Tablet PO 6.25 mg Q12HR JACKY Administration Cefdinir 300 mg 09/06/24 09:00 Cefdinir 300 Mg Capsule PO 09/09/24 09:01 DAILY JACKY Clopidogrel Bisulfate 75 mg 09/04/24 09:00 09/05/24 09:32 Clopidogrel Bisulfate 75 Mg Tablet PO 75 mg DAILY JACKY Administration Dextrose 12.5 gm 09/03/24 17:17 Dextrose 50% 25 Gm/50 Ml Syringe IV PUSH PRN PRN Hypoglycemia Protocol Dicyclomine HCl 20 mg 09/03/24 17:16 Dicyclomine Hcl 10 Mg Capsule PO TID PRN abdominal pain Docusate Sodium 100 mg 09/03/24 21:00 09/05/24 09:32 Docusate Sodium 100 Mg Capsule PO 100 mg Q12HR JACKY Administration Fluticasone Propionate 2 spray 09/03/24 17:16 Fluticasone Propionate 0.05% Na Spr 16 Gm Btl (*Bkc) NASAL DAILY PRN nasal congestion Glipizide 2.5 mg 09/04/24 08:00 09/05/24 09:32 Glipizide Xl 2.5 Mg Tab.Er.24 PO 2.5 mg DAILY@0800 JACKY Administration Glucagon 1 mg 09/03/24 17:17 Glucagon For Inj 1 Mg Vial IM PRN PRN Hypoglycemia Protocol Glucose 15 gm 09/03/24 17:17 Glucose Oral Gel 15 Gm Of Glucse In 37.5 Gm Tube PO PRN PRN Hypoglycemia Protocol Guaifenesin/Dextromethorphan 10 ml 09/04/24 22:54 09/05/24 11:47 Guaifenesin/Dextromethorphan 10 Ml Udc PO 10 ml Q4H PRN Administration Cough Dextrose 1,000 mls @ 100 mls/hr 09/03/24 17:17 Dextrose 5% 1,000 Ml IVPB PRN PRN Hypoglycemia Protocol Insulin Aspart 4 - 8 units 09/03/24 17:00 09/05/24 12:20 Insulin Aspart (*Bkc) 100 Units/Ml SUB-Q Not Given TIDWM [facility] Protocol Miconazole Nitrate 1 applic 09/03/24 17:00 09/05/24 16:39 Miconazole Nitrate 2% Cream 30 Gm Tube TOPICAL 1 applic BID JACKY Administration Ondansetron HCl 4 mg 09/03/24 17:16 Ondansetron Inj 4 Mg/2 Ml Vial IV PUSH Q6H PRN Nausea And Vomiting Ondansetron HCl 4 mg 09/03/24 17:16 Ondansetron Hcl Odt 4 Mg Tablet PO Q8H PRN nausea and vomiting Pantoprazole Sodium 20 mg 09/04/24 09:00 09/05/24 09:28 Pantoprazole Sod Sesquihydrate 20 Mg Tab PO 20 mg QAM JACKY Administration Polyethylene Glycol 17 gm 09/05/24 11:37 09/05/24 16:39 Polyethylene Glycol 3350 17 Gm Powd.Pack PO 17 gm BID JACKY Administration Witch Bisi 1 pad 09/03/24 17:20 09/05/24 16:43 Witch Bisi 40 Pads TOPICAL 1 pad PRN PRN Administration Perineal Discomfort Radiology Results: ITS Impressions Abdomen/Pelvis CT 09/03/24 09:54 IMPRESSION: 1. Subcentimeter ball of stool the rectum which can be seen with constipation w ith fecal impaction. No other acute intra-abdominal/pelvic process. 2. Nonobstructing left nephrolithiasis filling the calyces of the left kidney. 3. Diverticulosis. 4. Small fat-containing umbilical hernia bilateral fat-containing inguinal hernias. Chest X-Ray 09/05/24 11:05 Impression: 1: Nodular opacities left mid lung. Differential diagnosis includes focal parenchymal consolidation secondary to infection as well as parenchymal nodules. Follow-up CT chest recommended for further assessment. Abdomen X-Ray 09/05/24 15:50 IMPRESSION: NO ACUTE ABDOMINAL FINDINGS. Labs Labs: Laboratory Results - last 24 hr 09/04/24 09/05/24 09/05/24 20:18 06:24 09:01 Sodium 144 Potassium 3.7 Chloride 114 H Carbon Dioxide 23 Anion Gap 7 BUN 24 H Creatinine 2.20 H Estim Creat Clear Calc 20 Estimated GFR 21 L Glucose 114 H POC Capillary Glucose 166 H 129 H Calcium 8.5 09/05/24 12:06 Sodium Potassium Chloride Carbon Dioxide Anion Gap BUN Creatinine Estim Creat Clear Calc Estimated GFR Glucose POC Capillary Glucose 115 H Calcium Quality VTE Prophylaxis VTE prophylaxis: mechanical ordered
[2024-09-05 17:05] LABS: Glucose Point of Care 159 mg/dl (65-105)
[2024-09-05] MEDS: DICYCLOMINE HCL 10 MG CAPSULE 20 MG PO (20:09)
[2024-09-05 20:57] LABS: Glucose Point of Care 215 mg/dl (65-105)
[2024-09-05 22:00] VITALS: BP 103/44; PULSE 79; RESP 18; TEMP 36.2; O2SAT 95
[2024-09-06] VITALS (7 sets, daily range): BP systolic 100–123; BP diastolic 40–49; PULSE 70–110; RESP 18; TEMP 36.1–36.4; O2SAT 96–98
[2024-09-06 06:31] LABS: Hematocrit 34.2 % (37.0-47.0); Hemoglobin 9.7 g/dL (12.0-15.0); Mean Corpuscular HGB Conc 28.4 g/dl (32-36); Mean Corpuscular Hemoglobin 25.9 pg (26-34); Mean Corpuscular Volume 91.4 fl (80-100); Mean Platelet Volume 10.2 fl (7.4-10.4); Platelet Count Result 255 k/mm3 (150-375); Red Blood Count 3.74 M/mm3 (4.2-5.4); White Blood Count 14.3 K/mm3 (4.5-10.0)
[2024-09-06 06:52] LABS: Anion Gap 7 mmol/L (4-12); Blood Urea Nitrogen 23 mg/dL (7-17); Calcium 8.6 mg/dL (8.4-10.2); Carbon Dioxide 23 mmol/L (22-30); Chloride 112 mmol/L (98-107); Estimated CRCL calculation 21 ml/min; Estimated Glomerular Filt Rate 23; Glucose 78 mg/dL (65-110); Magnesium 1.8 mg/dL (1.6-2.3); Potassium 3.8 mmol/L (3.4-5.0); Sodium 142 mmol/L (137-145)
[2024-09-06 07:46] LABS: Glucose Point of Care 79 mg/dl (65-105)
[2024-09-06] MEDS: glipiZIDE XL 2.5 MG TAB.ER.24 PO (07:57)
[2024-09-06] MEDS: ATORVASTATIN 40 MG TABLET 80 MG PO (07:58)
[2024-09-06] MEDS: BENZONATATE 100 MG CAPSULE 200 MG PO ×3 (07:58→17:07)
[2024-09-06] MEDS: CEFDINIR 300 MG CAPSULE PO (07:58)
[2024-09-06] MEDS: ASPIRIN 81 MG ENTERIC TABLET PO (07:58)
[2024-09-06] MEDS: MICONAZOLE NITRATE 2% CREAM 30 GM TUBE 1 APPLIC TOPICAL ×2 (07:58→17:07)
[2024-09-06] MEDS: PANTOPRAZOLE SOD SESQUIHYDRATE 20 MG TAB PO (07:58)
[2024-09-06] MEDS: CLOPIDOGREL BISULFATE 75 MG TABLET PO (07:58)
[2024-09-06] MEDS: carvediloL 6.25 MG TABLET PO ×2 (07:58→20:33)
[2024-09-06 12:12] LABS: Glucose Point of Care 108 mg/dl (65-105)
--- NOTE | 2024-09-06 14:35 | PM.IMPN ---
Progress Note: A&P Assessment and Plan (1) UTI (urinary tract infection): Qualifiers: Urinary tract infection type: acute cystitis Hematuria presence: with hematuria Qualified Code(s): N30.01 - Acute cystitis with hematuria Code(s): N39.0 - Urinary tract infection, site not specified Status: Acute Assessment and Plan: -suspected uti - started on ceftriaxone on 09/03 - watch uc (2) Constipation: Code(s): K59.00 - Constipation, unspecified Status: Acute Assessment and Plan: - continue fluids - fleet enema x1 yesterday - today try soap suds enema for better results (3) Type 2 diabetes mellitus with hyperglycemia: Code(s): E11.65 - Type 2 diabetes mellitus with hyperglycemia Status: Chronic Assessment and Plan: - accuchecks, ssi - correct regimen ordered - high dose TIDWM - A1C ordered (4) Chronic kidney disease, stage 4 (severe): Code(s): N18.4 - Chronic kidney disease, stage 4 (severe) Status: Acute Assessment and Plan: - creatinine2.78, GFR 16. - watch bmp continue iv fluids (5) Hypertension, essential: Code(s): I10 - Essential (primary) hypertension Status: Chronic Assessment and Plan: bp is stable - continue home medications: carvedilol, amlodipine Plan patient still complains of abdominal pain and constipation, on 09/05 increased Miralax to BID and gave Dulcolax supp without any improvement, repeated KUB still showed colon loaded with stool, no obstruction, and patient still c/o abdominal pain, gave fleet enema, since yesterday patient had several BM and feels better, will monitor, will encourage patient to ambulate and work with PT. uri - add robuitissin cough syrup Subjective Date/time seen: 09/06/24 14:35 Interval history: pt admitted with fecal impactation on ct scan pt tried fleet enema yesterday today pt having some stool watery plan to try soap suds enema for better results pt has history of dementia, dm htn and hld patient still complains of abdominal pain and constipation, on 09/05 increased Miralax to BID and gave Dulcolax supp without any improvement, repeated KUB still showed colon loaded with stool, no obstruction, and patient still c/o abdominal pain, gave fleet enema, since yesterday patient had several BM and feels better, will monitor, will encourage patient to ambulate and work with PT. Review of Systems Review of Systems: ongoing constipation and mild abdominal pains some watery stool today pt complains of a cough which she caught from her All systems reviewed & are unremarkable except as noted in HPI and below Exam Narrative: Patient is comfortable, NAD HEENT: eyes are clear and none icteric LUNGS:CTA HEART: RR S1S2 ABD: BS+, Soft and nontender Lower extremities: no edema SKIN: nonjaundiced Neuro: grossly intact. Objective Data Vital Signs Vital Signs: Vital Signs - 24 hr 09/05/24 20:00 09/05/24 22:00 09/06/24 06:00 Temperature 36.2 C L 36.2 C L Pulse Rate 79 71 Respiratory Rate 18 18 Blood Pressure 103/44 L 108/49 L Pulse Oximetry 95 98 Oxygen Delivery Room Air 09/06/24 07:58 09/06/24 08:00 09/06/24 08:02 Temperature Pulse Rate 70 Respiratory Rate Blood Pressure 100/40 L Pulse Oximetry 98 Oxygen Delivery Room Air 09/06/24 13:11 09/06/24 13:25 09/06/24 13:52 Temperature 36.1 C L Pulse Rate 110 H Respiratory Rate 18 Blood Pressure 123/47 L Pulse Oximetry 98 Oxygen Delivery Room Air Room Air Intake/Output Intake/Output: Intake & Output 09/03/24 09/04/24 09/05/24 09/06/24 23:59 23:59 23:59 23:59 Intake Total 2290 2998 640 440 Output Total 100 Balance 2190 2998 640 440 Meds/Results Medications: Active Medications Generic Name Dose Route Start Last Admin Trade Name Freq PRN Reason Stop Dose Admin Acetaminophen 650 mg 09/03/24 10:46 09/04/24 18:52 Acetaminophen 325 Mg Tablet PO 650 mg Q4H PRN Administration Mild Pain (1-3) or Fever Amlodipine Besylate 10 mg 09/04/24 09:00 09/06/24 08:02 Amlodipine Besylate 10 Mg Tablet BY MOUTH Not Given DAILY JACKY Aspirin 81 mg 09/04/24 09:00 09/06/24 07:58 Aspirin 81 Mg Enteric Tablet PO 81 mg DAILY JACKY Administration Atorvastatin Calcium 80 mg 09/04/24 09:00 09/06/24 07:58 Atorvastatin 40 Mg Tablet PO 80 mg DAILY JACKY Administration Benzonatate 200 mg 09/05/24 13:00 09/06/24 12:58 Benzonatate 100 Mg Capsule PO 200 mg TID JACKY Administration Bisacodyl 10 mg 09/05/24 11:36 09/05/24 11:48 Bisacodyl 10 Mg Suppository RECTAL 10 mg QAM PRN Administration Constipation Carvedilol 6.25 mg 09/03/24 21:00 09/06/24 07:58 Carvedilol 6.25 Mg Tablet PO 6.25 mg Q12HR JACKY Administration Cefdinir 300 mg 09/06/24 09:00 09/06/24 07:58 Cefdinir 300 Mg Capsule PO 09/09/24 09:01 300 mg DAILY JACKY Administration Clopidogrel Bisulfate 75 mg 09/04/24 09:00 09/06/24 07:58 Clopidogrel Bisulfate 75 Mg Tablet PO 75 mg DAILY JACKY Administration Dextrose 12.5 gm 09/03/24 17:17 Dextrose 50% 25 Gm/50 Ml Syringe IV PUSH PRN PRN Hypoglycemia Protocol Dicyclomine HCl 20 mg 09/03/24 17:16 09/05/24 20:09 Dicyclomine Hcl 10 Mg Capsule PO 20 mg TID PRN Administration abdominal pain Docusate Sodium 100 mg 09/03/24 21:00 09/06/24 07:59 Docusate Sodium 100 Mg Capsule PO Not Given Q12HR [facility] Fluticasone Propionate 2 spray 09/03/24 17:16 Fluticasone Propionate 0.05% Na Spr 16 Gm Btl (*Bkc) NASAL DAILY PRN nasal congestion Glipizide 2.5 mg 09/04/24 08:00 09/06/24 07:57 Glipizide Xl 2.5 Mg Tab.Er.24 PO 2.5 mg DAILY@0800 JACKY Administration Glucagon 1 mg 09/03/24 17:17 Glucagon For Inj 1 Mg Vial IM PRN PRN Hypoglycemia Protocol Glucose 15 gm 09/03/24 17:17 Glucose Oral Gel 15 Gm Of Glucse In 37.5 Gm Tube PO PRN PRN Hypoglycemia Protocol Guaifenesin/Dextromethorphan 10 ml 09/04/24 22:54 09/05/24 22:46 Guaifenesin/Dextromethorphan 10 Ml Udc PO 10 ml Q4H PRN Administration Cough Dextrose 1,000 mls @ 100 mls/hr 09/03/24 17:17 Dextrose 5% 1,000 Ml IVPB PRN PRN Hypoglycemia Protocol Insulin Aspart 4 - 8 units 09/03/24 17:00 09/06/24 12:17 Insulin Aspart (*Bkc) 100 Units/Ml SUB-Q Not Given TIDWM [facility] Protocol Miconazole Nitrate 1 applic 09/03/24 17:00 09/06/24 07:58 Miconazole Nitrate 2% Cream 30 Gm Tube TOPICAL 1 applic BID JACKY Administration Ondansetron HCl 4 mg 09/03/24 17:16 Ondansetron Inj 4 Mg/2 Ml Vial IV PUSH Q6H PRN Nausea And Vomiting Ondansetron HCl 4 mg 09/03/24 17:16 Ondansetron Hcl Odt 4 Mg Tablet PO Q8H PRN nausea and vomiting Pantoprazole Sodium 20 mg 09/04/24 09:00 09/06/24 07:58 Pantoprazole Sod Sesquihydrate 20 Mg Tab PO 20 mg QAM JACKY Administration Polyethylene Glycol 17 gm 09/05/24 11:37 09/06/24 07:59 Polyethylene Glycol 3350 17 Gm Powd.Pack PO Not Given BID JACKY Witch Bisi 1 pad 09/03/24 17:20 09/05/24 20:27 Witch Bisi 40 Pads TOPICAL 1 pad PRN PRN Administration Perineal Discomfort Radiology Results: ITS Impressions Abdomen/Pelvis CT 09/03/24 09:54 IMPRESSION: 1. Subcentimeter ball of stool the rectum which can be seen with constipation with fecal impaction. No other acute intra-abdominal/pelvic process. 2. Nonobstructing left nephrolithiasis filling the calyces of the left kidney. 3. Diverticulosis. 4. Small fat-containing umbilical hernia bilateral fat-containing inguinal hernias. Chest X-Ray 09/05/24 11:05 Impression: 1: Nodular opacities left mid lung. Differential diagnosis includes focal parenchymal consolidation secondary to infection as well as parenchymal nodules. Follow-up CT chest recommended for further assessment. Abdomen X-Ray 09/05/24 15:50 IMPRESSION: NO ACUTE ABDOMINAL FINDINGS. Labs Labs: Laboratory Results - last 24 hr 09/05/24 09/05/24 09/06/24 16:57 20:33 06:05 WBC 14.3 H RBC 3.74 L Hgb 9.7 L Hct 34.2 L MCV 91.4 MCH 25.9 L MCHC 28.4 L RDW 18.0 H Plt Count 255 MPV 10.2 Sodium 142 Potassium 3.8 Chloride 112 H Carbon Dioxide 23 Anion Gap 7 BUN 23 H Creatinine 2.08 H Estim Creat Clear Calc 21 Estimated GFR 23 L Glucose 78 POC Capillary Glucose 159 H 215 H Calcium 8.6 Magnesium 1.8 09/06/24 09/06/24 07:31 12:09 WBC RBC Hgb Hct MCV MCH MCHC RDW Plt Count MPV Sodium Potassium Chloride Carbon Dioxide Anion Gap BUN Creatinine Estim Creat Clear Calc Estimated GFR Glucose POC Capillary Glucose 79 108 H Calcium Magnesium Quality VTE Prophylaxis VTE prophylaxis: mechanical ordered
[2024-09-06 17:05] LABS: Glucose Point of Care 132 mg/dl (65-105)
[2024-09-06] MEDS: DOCUSATE SODIUM 100 MG CAPSULE PO (20:33)
[2024-09-06 21:10] LABS: Glucose Point of Care 166 mg/dl (65-105)
[2024-09-07 06:00] VITALS: BP 137/50; PULSE 73; RESP 16; TEMP 36.6; O2SAT 95
[2024-09-07 06:45] LABS: Hemoglobin 8.8 g/dL (12.0-15.0); Mean Corpuscular HGB Conc 28.4 g/dl (32-36); Mean Corpuscular Volume 91.4 fl (80-100); Mean Platelet Volume 9.7 fl (7.4-10.4); Platelet Count Result 291 k/mm3 (150-375); Red Blood Count 3.39 M/mm3 (4.2-5.4); Red Cell Distribution Width 18.3 % (11.5-14.5); White Blood Count 9.7 K/mm3 (4.5-10.0)
[2024-09-07 07:05] LABS: Anion Gap 4 mmol/L (4-12); Blood Urea Nitrogen 25 mg/dL (7-17); Calcium 8.5 mg/dL (8.4-10.2); Carbon Dioxide 26 mmol/L (22-30); Chloride 112 mmol/L (98-107); Estimated CRCL calculation 18 ml/min; Estimated Glomerular Filt Rate 20; Glucose 76 mg/dL (65-110); Magnesium 1.9 mg/dL (1.6-2.3); Potassium 3.9 mmol/L (3.4-5.0); Sodium 142 mmol/L (137-145)
[2024-09-07 07:37] LABS: Glucose Point of Care 82 mg/dl (65-105)
[2024-09-07 08:00] VITALS: O2SAT 95
[2024-09-07] MEDS: glipiZIDE XL 2.5 MG TAB.ER.24 PO (09:00)
[2024-09-07 09:02] VITALS: PULSE 74
[2024-09-07] MEDS: PANTOPRAZOLE SOD SESQUIHYDRATE 20 MG TAB PO (09:02)
[2024-09-07] MEDS: BENZONATATE 100 MG CAPSULE 200 MG PO ×2 (09:02→12:45)
[2024-09-07] MEDS: CEFDINIR 300 MG CAPSULE PO (09:02)
[2024-09-07] MEDS: MICONAZOLE NITRATE 2% CREAM 30 GM TUBE 1 APPLIC TOPICAL (09:02)
[2024-09-07] MEDS: carvediloL 6.25 MG TABLET PO (09:02)
[2024-09-07] MEDS: ATORVASTATIN 40 MG TABLET 80 MG PO (09:02)
[2024-09-07] MEDS: DOCUSATE SODIUM 100 MG CAPSULE PO (09:02)
[2024-09-07] MEDS: CLOPIDOGREL BISULFATE 75 MG TABLET PO (09:02)
[2024-09-07] MEDS: amLODIPine BESYLATE 10 MG TABLET BY MOUTH (09:02)
[2024-09-07] MEDS: ASPIRIN 81 MG ENTERIC TABLET PO (09:02)
[2024-09-07 11:43] LABS: Glucose Point of Care 133 mg/dl (65-105)
[2024-09-07] MEDS: ONDANSETRON INJ 4 MG/2 ML VIAL IV PUSH (12:46)
[2024-09-07 14:00] VITALS: BP 119/52; PULSE 71; RESP 18; TEMP 36.3; O2SAT 95
--- NOTE | 2024-09-07 15:05 | P.DS_ITS ---
DS: Admitting Diagnosis Discharge Date 09/07/24 Admitting Diagnosis constipation DS: Discharge Diagnosis Discharge Diagnosis (1) UTI (urinary tract infection): Qualifiers: Urinary tract infection type: acute cystitis Hematuria presence: with hematuria Qualified Code(s): N30.01 - Acute cystitis with hematuria Code(s): N39.0 - Urinary tract infection, site not specified Status: Acute Assessment and Plan: -suspected uti - started on ceftriaxone on 09/03 - watch uc (2) Constipation: Code(s): K59.00 - Constipation, unspecified Status: Acute Assessment and Plan: - continue fluids - fleet enema x1 yesterday - today try soap suds enema for better results (3) Type 2 diabetes mellitus with hyperglycemia: Code(s): E11.65 - Type 2 diabetes mellitus with hyperglycemia Status: Chronic Assessment and Plan: - accuchecks, ssi - correct regimen ordered - high dose TIDWM - A1C ordered (4) Chronic kidney disease, stage 4 (severe): Code(s): N18.4 - Chronic kidney disease, stage 4 (severe) Status: Acute Assessment and Plan: - creatinine2.78, GFR 16. - watch bmp continue iv fluids (5) Hypertension, essential: Code(s): I10 - Essential (primary) hypertension Status: Chronic Assessment and Plan: bp is stable - continue home medications: carvedilol, amlodipine Plan patient still complains of abdominal pain and constipation, on 09/05 increased Miralax to BID and gave Dulcolax supp without any improvement, repeated KUB still showed colon loaded with stool, no obstruction, and patient still c/o abdominal pain, gave fleet enema, since yesterday patient had several BM and feels better, will monitor, will encourage patient to ambulate and work with PT. uri - add robuitissin cough syrup DS: Summary Hospital Course Hospital Course: patient still complains of abdominal pain and constipation, on 09/05 increased Miralax to BID and gave Dulcolax supp without any improvement, repeated KUB still showed colon loaded with stool, no obstruction, and patient still c/o abdominal pain, gave fleet enema, since yesterday patient had several BM and feels better, will monitor, will encourage patient to ambulate and work with PT. today patient feels better repeat KUB shows resolution of constipation, patient is stable, will discharge today. Time Spent with Patient Time attestation: Total time spent providing and/or coordinating discharge services: Exam Narrative: Patient is comfortable, NAD HEENT: eyes are clear and none icteric LUNGS:CTA HEART: RR S1S2 ABD: BS+, Soft and nontender Lower extremities: no edema SKIN: nonjaundiced Neuro: grossly intact. DS: Data Data Completed and Pending Labs on day of discharge: Labs from last 24 hours 09/07/24 09/07/24 09/07/24 11:30 07:34 06:22 WBC 9.7 RBC 3.39 L Hgb 8.8 L Hct 31.0 L MCV 91.4 MCH 26.0 MCHC 28.4 L RDW 18.3 H Plt Count 291 MPV 9.7 Sodium 142 Potassium 3.9 Chloride 112 H Carbon Dioxide 26 Anion Gap 4 BUN 25 H Creatinine 2.36 H Estim Creat Clear Calc 18 Estimated GFR 20 L Glucose 76 POC Capillary Glucose 133 H 82 Calcium 8.5 Magnesium 1.9 09/06/24 09/06/24 20:34 16:15 WBC RBC Hgb Hct MCV MCH MCHC RDW Plt Count MPV Sodium Potassium Chloride Carbon Dioxide Anion Gap BUN Creatinine Estim Creat Clear Calc Estimated GFR Glucose POC Capillary Glucose 166 H 132 H Calcium Magnesium Discharge Plan Discharge Attending physician on discharge: Shaun Lane Consulting providers: Sybil Sanchez; Niru Prater; Royce Edmond; Mono Hammonds; Derek Her; Jaron Alberto Discharging Clinician: Chandler Garzon Patient Disposition: Home with Home Health Service Activity: as tolerated Diet: heart healthy and high fiber Discharge Instructions: Care Coordination. Patient to have [facility] # P: [phone] for RN/PT/OT eval and treat. RN please fax discharge instructions to: F:1- [phone] patient is instructed to avoid heavy fatty meals, eat more fruits, vegetable, and drink fluids, patient to follow up with her primary care provider as soon as possible. patient is instructed if any symptoms redevelop to go to nearest ER. Patient Instructions: Antibiotic Form Patient Language: Luxembourger Stand Alone Forms: General Discharge Information Follow-up/Referrals: Martir Esquivel MD [Primary Care Provider] - Discharge Medications: New benzonatate 100 mg Capsule 200 mg PO TID Qty: 30 0RF docusate sodium 100 mg Capsule 100 mg PO Q12HR Qty: 30 0RF cefdinir 300 mg Capsule 300 mg PO DAILY Qty: 10 0RF dextromethorphan-guaifenesin 10-100 mg/5 mL Syrup 10 ml PO Q4H PRN (Reason: Cough) Qty: 237 0RF polyethylene glycol 3350 [Miralax] 17 gram Powder In Packet 17 g PO BID Qty: 14 0RF Preparation H (Witch Bisi) 50 % Pads, Medicated 1 pad topical PRN PRN (Reason: Perineal Discomfort) Qty: 30 0RF Continued (DME) FreeStyle Ronal 2 [place] Misc See Rx Instructions .Route Qty: 1 0RF Rx Instructions: As directed nystatin 100,000 unit/gram cream See Rx Instructions .ROUTE .COMPLEX Qty: 30 0RF Dose Instruction: APPLY CREAM TOPICALLY TO AFFECTED AREA TWICE DAILY Rx Instructions: APPLY CREAM TOPICALLY TO AFFECTED AREA TWICE DAILY dicyclomine 20 mg tablet 20 mg PO TID PRN (Reason: abdominal pain) fluticasone propionate 50 mcg/actuation spray,suspension 2 spray intranasal DAILY PRN (Reason: nasal congestion) Rx Instructions: administer into each nostril aspirin [Adult Aspirin Regimen] 81 mg tablet,delayed release (DR/EC) 81 mg PO DAILY Qty: 30 1RF atorvastatin 80 mg tablet 80 mg PO DAILY Qty: 90 1RF (DME) FreeStyle Ronal 2 Sensor Kit See Rx Instructions .ROUTE .MEDSUPPLY Qty: 6 0RF Rx Instructions: As directed pantoprazole 20 mg tablet,delayed release (DR/EC) 20 mg PO QAM Qty: 90 1RF carvedilol [Coreg] 6.25 mg tablet 6.25 mg PO Q12HR Qty: 60 1RF clopidogrel 75 mg tablet See Rx Instructions .ROUTE .COMPLEX Qty: 30 1RF Dose Instruction: TAKE 1 TABLET BY MOUTH IN THE MORNING Rx Instructions: TAKE 1 TABLET BY MOUTH IN THE MORNING amlodipine 10 mg tablet See Rx Instructions .ROUTE .COMPLEX Qty: 90 1RF Dose Instruction: Take 1 tablet by mouth once daily Rx Instructions: Take 1 tablet by mouth once daily ondansetron 4 mg tablet,disintegrating 4 mg PO Q8H PRN (Reason: nausea and vomiting) Qty: 20 0RF glipizide 2.5 mg tablet extended release 24hr See Rx Instructions .ROUTE .COMPLEX Qty: 90 0RF Dose Instruction: Take 1 tablet by mouth once daily Rx Instructions: Take 1 tablet by mouth once daily acetaminophen [Tylenol] 325 mg capsule 650 mg PO Q6H PRN (Reason: pain) Qty: 30 0RF Date of admission: 09/04/24 16:02 Primary Care Provider: Martir Esquivel Admitting Provider: Chidi Galvez Attending physician on admission: Chandler Garzon Condition: Stable
== END 2024-09-07 16:38 | disposition home health service (06) | DRG 690 ==
LOC: ANHED 09:10 → ANH3MEDSUR 11:27
PROVIDERS: Family Medicine; Internal Medicine; Student in an Organized Health Care Education/Training Program; Admitting Provider Internal Medicine; Emergency Provider Emergency Medicine; PCP Family Medicine; Visit Provider Family Medicine
DX: N30.01 Acute cystitis with hematuria (principal); I13.0 Hypertensive heart and chronic kidney disease with heart failure and stage 1 through stage 4 chronic kidney disease, or unspecified chronic kidney disease; N18.4 Chronic kidney disease, stage 4 (severe); E11.65 Type 2 diabetes mellitus with hyperglycemia; E11.22 Type 2 diabetes mellitus with diabetic chronic kidney disease; E11.42 Type 2 diabetes mellitus with diabetic polyneuropathy; E11.51 Type 2 diabetes mellitus with diabetic peripheral angiopathy without gangrene; I50.9 Heart failure, unspecified; K56.41 Fecal impaction; I27.20 Pulmonary hypertension, unspecified; J06.9 Acute upper respiratory infection, unspecified; F03.90 Unspecified dementia, unspecified severity, without behavioral disturbance, psychotic disturbance, mood disturbance, and anxiety; I25.10 Atherosclerotic heart disease of native coronary artery without angina pectoris; E78.5 Hyperlipidemia, unspecified; Z79.82 Long term (current) use of aspirin; Z79.84 Long term (current) use of oral hypoglycemic drugs; Z79.899 Other long term (current) drug therapy; Z90.49 Acquired absence of other specified parts of digestive tract; Z95.5 Presence of coronary angioplasty implant and graft
CPT/HCPCS: 36415; 71045; 71250; 74018; 74176; 80048; 80053; 81001; 82948; 83036; 83605; 83690; 83735; 85025; 85027; 87086; 87186; 96361; 96365; 97161; 97166; 99285; A9270; G0378; J0696; J2405; J7030

== ENCOUNTER 2024-09-25 17:55 | Emergency (ER) | payer MEDICARE, SELFPAY ==
--- NOTE | ~2024-09-25 | XR_ITS ---
CHEST RADIOGRAPH CLINICAL HISTORY: chest pain . COMPARISON: 09/05/2024 TECHNIQUE: Single portable view of the chest. FINDINGS The cardiomediastinal silhouette is unremarkable. Left basilar consolidation suspected. Remainder of the lungs are clear. IMPRESSION: Left basilar consolidation is suspected. Reviewed, dictated and finalized at location A.
--- NOTE | ~2024-09-25 | US_ITS ---
EXAMINATION: US venous doppler [facility] DATE: 09/25/2024 19:37 INDICATION: Pain and swelling of the left calf TECHNIQUE: Grayscale ultrasound images without and with compression and Doppler ultrasound images of the left lower extremity veins were obtained. COMPARISON: None. FINDINGS: The visualized portions of left common femoral vein, profunda (deep) femoral vein, femoral vein, popl iteal vein, and greater saphenous vein outflow are patent. Noncompressibility and absence of flow is identified within the posterior tibial and peroneal veins, consistent with deep venous thrombosis. IMPRESSION: Deep venous thrombosis within the posterior tibial and peroneal veins, as detailed above. Reviewed, dictated and finalized at location A. IMPRESSION: Deep venous thrombosis within the posterior tibial and peroneal veins, as jeff led above.
--- NOTE | 2024-09-25 17:59 | ECG_ITS ---
Test Date: 2024-09-25 18:12:50 Measurements Intervals [place] Rate: 82 P: 19 [place]: 160 QRS: 18 QRSD: 74 T: 31 QT: 356 QTc: 418 Interpretive Statements SINUS RHYTHM LOW QRS VOLTAGE IN PRECORDIAL LEADS BASELINE ARTIFACT- I, III, AVR, AVL, V1 BORDERLINE ECG Compared to ECG 09/21/2023 12:45:50 Low QRS voltage now present Electronically Signed On 09-25-2024 20:13:02 CDT by Darnell Ames D.O.
[2024-09-25 18:31] VITALS: BP 141/64; PULSE 91; RESP 16; TEMP 36.4; O2SAT 97
[2024-09-25 18:34] LABS: Basophils Percent Auto 0.3 % (0.2-1.2); Eosinophils Absolute Auto 0.4 K/mm3 (0-0.3); Eosinophils Percent Auto 4.2 % (0-4.4); Hematocrit 32.4 % (37.0-47.0); Hemoglobin 9.5 g/dL (12.0-15.0); Immature Granulocyte Absolute 0.03 K/mm3 (0.00-0.031); Immature Granulocyte Percent A 0.3 % (0-0.5); Lymphocytes Absolute Auto 2.09 K/mm3 (0.9-3.2); Lymphocytes Percent Auto 23.2 % (18.3-44.2); Mean Corpuscular HGB Conc 29.3 g/dl (32-36); Mean Corpuscular Volume 88.8 fl (80-100); Mean Platelet Volume 10.2 fl (7.4-10.4); Monocytes Absolute Auto 0.6 K/mm3 (0.1-0.6); Monocytes Percent Auto 6.1 % (2.6-8.5); Neutrophils Absolute Auto 5.9 K/mm3 (1.3-6.7); Neutrophils Percent Auto 65.9 % (45.5-73.1); Platelet Count Result 301 k/mm3 (150-375); Red Blood Count 3.65 M/mm3 (4.2-5.4); Red Cell Distribution Width 18.5 % (11.5-14.5)
--- NOTE | 2024-09-25 18:38 | ED_ITS ---
HPI - Chest Pain General Chief Complaint: Chest Pain Stated Complaint: CP Focused HPI: 79-year-old female with history of CKD, hyperlipidemia, hypertension, CAD s/p 3 cardiac stent placements presents to the emergency department for chest pain that started 2 hours prior to arrival. Patient points to her inferior sternum/epigastrium when describing her pain. She does have difficulty characterizing her pain. She denies shortness of breath, cough or congestion, fevers, abdominal pain. She is endorsing lower extremity edema which has been present since she was discharged from our hospital on 09/07/2024 after admission for constipation, however she does believe that the swelling has worsened. Her left leg is more swollen that her right which she believes is new as well. Is also reporting associated left calf pain. Denies history of VTE. Is not anticoagulated. GENERAL: Chronically ill-appearing HEAD: Normocephalic, atraumatic. CHEST: Clear to auscultation. ?No respiratory distress. EXT: Significant bilateral lower extremity edema, L>R. Pain to left calf with palpation. BLE are pink and warm HEART: Regular rate and rhythm.? NEURO: ?Alert and oriented x3. Patient screened in triage and initial orders placed.? ?Additional care and disposition to be based upon?diagnostic testing and treatment. Related Data Home Medications ?Medication ?Instructions ?Recorded ?Confirmed ?Last Taken ?Type dicyclomine 20 mg tablet 20 mg PO TID PRN abdominal pain 09/03/24 09/14/24 Unknown History fluticasone propionate 50 2 spray intranasal DAILY PRN nasal 09/03/24 09/14/24 Unknown History mcg/actuation nasal congestion spray,suspension Allergies Allergy/AdvReac Type Severity Reaction Status Date / Time codeine Allergy Intermediate Rash Verified 09/14/24 14:01 Penicillins Allergy Intermediate Rash Verified 09/14/24 14:01 Sulfa (Sulfonamide Allergy Intermediate cheeks get Verified 09/14/24 14:01 Antibiotics) really red Atarax Allergy Unknown deep sleep Unverified 11/05/23 08:30 hydroxyzine (From Atarax) AdvReac Unknown deep sleep Verified 09/14/24 14:01 mulberry Allergy Mild Rash Uncoded 09/14/24 14:01 [facility] Past Medical History Medical History Encounter for immunization Neurocognitive disorder Intertrochanteric fracture of left hip Psychogenic formication Pulmonary HTN Metabolic acidosis NATE (acute kidney injury) Sepsis CHF (congestive heart failure), NYHA class I Anemia Postmenopausal Chronic kidney disease, stage 4 (severe) Coronary artery disease involving [place] heart without angina pectoris Diabetic peripheral neuropathy Hyperlipidemia, unspecified Hypertension, essential Thrombosed external hemorrhoid Type 2 diabetes mellitus with hyperglycemia PAD (peripheral artery disease) Surgical History Surgical History History of hip surgery with femur H/O heart artery stent Hx of tonsillectomy History of cholecystectomy Family History Family History Mother Cerebrovascular accident Diabetes mellitus Family history of cardiovascular disease Father Myocardial infarction Sibling Colon cancer Congestive heart failure Other Hypertension Social History Social History Social History: The patient had 3 children. 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 Her Trey is the durable power oriental rug stretcher for healthcare. The patient is a full code. Who is a lifelong nonsmoker. She does not use any alcohol marijuana or illicit drugs. Code status full code Smoking status: Never smoker Second hand tobacco smoke exposure: No Alcohol intake: never Substance use: never Substance use type: does not use Do You Feel Safe in your Home?: Yes Lack of Transportation: No Lack of Food: Never True Current Housing: I Have Housing Concerned About Future Housing: No Difficulty Paying Gas/Electric Bills: No Difficulty Paying for Meds: No Currently Unemployed: No Education: High School Diploma/GED Difficulty w/ Childcare or Family Care: No Living arrangements: with family Occupation/Education: retired Gender identity (if verbalized by the patient): Female Sexual Orientation (if Verbalized by the Patient): Straight or Heterosexual Spiritual care concerns: No Agree to blood products: Yes Course Vital Signs Vital signs: Vital Signs Temperature 97.5 F L 09/25/24 18:31 Pulse Rate 91 09/25/24 18:31 Respiratory Rate 16 09/25/24 18:31 Blood Pressure 141/64 H 09/25/24 18:31 Pulse Oximetry 97 09/25/24 18:31 Temperature 97.5 F L 09/25/24 18:31 Pulse Rate 91 09/25/24 18:31 Respiratory Rate 16 09/25/24 18:31 Blood Pressure 141/64 H 09/25/24 18:31 Pulse Oximetry 97 09/25/24 18:31 MDM - Chest Pain Lab Data 09/25/24 18:26 09/25/24 18:26 Labs: Lab Results 09/25/24 Range/Units 18:26 WBC 9.0 (4.5-10.0) K/mm3 RBC 3.65 L (4.2-5.4) M/mm3 Hgb 9.5 L (12.0-15.0) g/dL Hct 32.4 L (37.0-47.0) % MCV 88.8 (80-100) fl MCH 26.0 (26-34) pg MCHC 29.3 L (32-36) g/dl RDW 18.5 H (11.5-14.5) % Plt Count 301 (150-375) k/mm3 MPV 10.2 (7.4-10.4) fl Immature Gran % (Auto) 0.3 (0-0.5) % Neut % (Auto) 65.9 (45.5-73.1) % Lymph % (Auto) 23.2 (18.3-44.2) % [place] % (Auto) 6.1 (2.6-8.5) % Eos % (Auto) 4.2 (0-4.4) % Baso % (Auto) 0.3 (0.2-1.2) % Lymph # (Auto) 2.09 (0.9-3.2) K/mm3 [place] # (Auto) 0.6 (0.1-0.6) K/mm3 Eos # (Auto) 0.4 H (0-0.3) K/mm3 Baso # (Auto) 0.0 (0.0-0.1) K/mm3 Abs Immat Gran (auto) 0.03 (0.00-0.031) K/mm3 Absolute Neuts (auto) 5.9 (1.3-6.7) K/mm3 Absolute Nucleated RBC 0.000 (0.0-0.012) K/mm3 Band Neutrophils % 0 (0-6) % Nucleated RBC % 0.0 (0.0-0.2) % Platelet Estimate Adequate (Adequate) Hypochromasia 1+ Anisocytosis 2+ Microcytosis 1+ (NORMAL) Schistocytes None seen PT 12.2 (11.1-14.7) Seconds INR 0.9 APTT 25.0 (22.3-36.8) Seconds Sodium 142 (137-145) mmol/L Potassium 4.4 (3.4-5.0) mmol/L Chloride 112 H (98-107) mmol/L Carbon Dioxide 19 L (22-30) mmol/L Anion Gap 11 (4-12) mmol/L BUN 69 H D (7-17) mg/dL Creatinine 2.09 H (0.7-1.0) mg/dL Estim Creat Clear Calc Not Reportable Estimated GFR 23 L (59 - ) Glucose 245 H (65-110) mg/dL Calcium 9.1 (8.4-10.2) mg/dL Total Bilirubin 0.1 L (0.2-1.3) mg/dL AST 23 (14-36) U/L ALT 19 (6-35) U/L Alkaline Phosphatase 117 (38-126) U/L Troponin I < 0.012 (0.000-0.034) ng/mL NT-Pro-B Natriuret Pep 766 H (19.9-100) pg/mL Total Protein 6.8 (6.3-8.2) g/dL Albumin 3.6 (3.5-5.1) g/dL Lipase 186 (23-300) U/L Discharge Plan Discharge Clinical Impression: Chest pain Qualifiers: Chest pain type: unspecified Qualified Code(s): R07.9 - Chest pain, unspecified Patient Disposition: Elopement After Seen by [facility] Patient Language: Bengali Prescriptions: No Action (DME) FreePicanova Ronal 2 [facility] See Rx Instructions .Route Qty: 1 0RF Rx Instructions: As directed nystatin 100,000 unit/gram cream See Rx Instructions .ROUTE .COMPLEX Qty: 30 0RF Dose Instruction: APPLY CREAM TOPICALLY TO AFFECTED AREA TWICE DAILY Rx Instructions: APPLY CREAM TOPICALLY TO AFFECTED AREA TWICE DAILY dicyclomine 20 mg tablet 20 mg PO TID PRN (Reason: abdominal pain) fluticasone propionate 50 mcg/actuation spray,suspension 2 spray intranasal DAILY PRN (Reason: nasal congestion) Rx Instructions: administer into each nostril benzonatate 100 mg Capsule 200 mg PO TID Qty: 30 0RF docusate sodium 100 mg Capsule 100 mg PO Q12HR Qty: 30 0RF polyethylene glycol 3350 [Miralax] 17 gram Powder In Packet 17 g PO BID Qty: 14 0RF Preparation H (Poli Mathews) 50 % Pads, Medicated 1 pad topical PRN PRN (Reason: Perineal Discomfort) Qty: 30 0RF aspirin [Adult Aspirin Regimen] 81 mg tablet,delayed release (DR/EC) 81 mg PO DAILY Qty: 30 1RF atorvastatin 80 mg tablet 80 mg PO DAILY Qty: 90 1RF (DME) FreeStyle Ronal 2 Sensor Kit See Rx Instructions .ROUTE .MEDSUPPLY Qty: 6 0RF Rx Instructions: As directed pantoprazole 20 mg tablet,delayed release (DR/EC) 20 mg PO QAM Qty: 90 1RF carvedilol [Coreg] 6.25 mg tablet 6.25 mg PO Q12HR Qty: 60 1RF clopidogrel 75 mg tablet See Rx Instructions .ROUTE .COMPLEX Qty: 30 1RF Dose Instruction: TAKE 1 TABLET BY MOUTH IN THE MORNING Rx Instructions: TAKE 1 TABLET BY MOUTH IN THE MORNING amlodipine 10 mg tablet See Rx Instructions .ROUTE .COMPLEX Qty: 90 1RF Dose Instruction: Take 1 tablet by mouth once daily Rx Instructions: Take 1 tablet by mouth once daily ondansetron 4 mg tablet,disintegrating 4 mg PO Q8H PRN (Reason: nausea and vomiting) Qty: 20 0RF hydrocortisone 2.5 % cream with perineal applicator 1 applic RECTAL BID PRN (Reason: hemorrhoids) Qty: 30 0RF cefdinir 300 mg capsule 300 mg PO DAILY Qty: 10 0RF glipizide 2.5 mg tablet extended release 24hr See Rx Instructions .ROUTE .COMPLEX Qty: 90 0RF Dose Instruction: Take 1 tablet by mouth once daily Rx Instructions: Take 1 tablet by mouth once daily acetaminophen [Tylenol] 325 mg capsule 650 mg PO Q6H PRN (Reason: pain) Qty: 30 0RF Follow-up/Referrals: Lacy Novak APRN [Primary Care Provider] -
[2024-09-25 18:43] LABS: Alanine Aminotransferase 19 U/L (6-35); Albumin Level 3.6 g/dL (3.5-5.1); Alkaline Phosphatase 117 U/L (38-126); Anion Gap 11 mmol/L (4-12); Aspartate Amino Transferase 23 U/L (14-36); Bilirubin,Total 0.1 mg/dL (0.2-1.3); Blood Urea Nitrogen 69 mg/dL (7-17); Calcium 9.1 mg/dL (8.4-10.2); Carbon Dioxide 19 mmol/L (22-30); Chloride 112 mmol/L (98-107); Estimated Glomerular Filt Rate 23; Glucose 245 mg/dL (65-110); Lipase 186 U/L (23-300); Potassium 4.4 mmol/L (3.4-5.0); Sodium 142 mmol/L (137-145); Total Protein 6.8 g/dL (6.3-8.2)
[2024-09-25 18:47] LABS: INR 0.9; Prothrombin Time 12.2 Seconds (11.1-14.7)
[2024-09-25 18:55] LABS: Troponin I < 0.012 ng/mL (0.000-0.034)
[2024-09-25 19:06] LABS: NT Pro B Type Natriuretic Pept 766 pg/mL (19.9-100)
[2024-09-25 19:32] LABS: Band Neutrophils Percent 0 % (0-6); Hypochromasia 1+; Microcytosis 1+ (NORMAL); Platelet Estimate Adequate (Adequate); Schistocytes None Seen
[2024-09-25 19:33] LABS: Anisocytosis 2+
--- NOTE | 2024-09-25 20:40 | PC.NURSE ---
Patient and appriached triage desk stating that they were leaving due to wait times. Pt and advised to follow up with nearest ED for symptoms that warrant return. Pt taken to ED exit via wheelchair in [facility] at this time.
== END 2024-09-25 22:20 | disposition left against medical advice (07) ==
LOC: ANHED 22:15
PROVIDERS: Student in an Organized Health Care Education/Training Program; Emergency Provider Physician Assistant; PCP Nurse Practitioner Family
DX: R07.9 Chest pain, unspecified (principal); R60.0 Localized edema; M79.662 Pain in left lower leg; I13.0 Hypertensive heart and chronic kidney disease with heart failure and stage 1 through stage 4 chronic kidney disease, or unspecified chronic kidney disease; I50.9 Heart failure, unspecified; E11.22 Type 2 diabetes mellitus with diabetic chronic kidney disease; N18.4 Chronic kidney disease, stage 4 (severe); E78.5 Hyperlipidemia, unspecified; I25.10 Atherosclerotic heart disease of native coronary artery without angina pectoris; Z95.5 Presence of coronary angioplasty implant and graft
CPT/HCPCS: 36415; 71045; 80053; 83690; 83880; 84484; 85025; 85610; 85730; 93005; 93971; 99284

== ENCOUNTER 2024-10-15 09:19 | Emergency (ER) | payer MEDICARE, SELFPAY ==
--- NOTE | ~2024-10-15 | CT_ITS ---
Non-contrast CT scan of the Abdomen and Pelvis Clinical indication: Epigastric pain Technique: 2.5 mm axial scans were obtained through the abdomen and pelvis without intravenous or or al contrast. Dose reduction technique was used on this scan by utilizing automated exposure control a nd iterative reconstruction technique. The dose-length product (DLP) was 1075.48 mGy-cm. COMPARISON: 09/03/2024 Findings: Images through the lung bases reveal no abnormalities. There is no evidence of renal or ureteral calculi. The kidneys and the ureters are nondilated. The liver, spleen, pancreas, and adrenals appear normal. Cholecystectomy clips are present. There are atherosclerotic calcifications of the aorta. . There is no evidence of bowel obstruction. Probable minimal inflammatory change about diverticulum at the splenic flexure region of the colon. Small fat-containing umbilical hernia noted. Images through the pelvis were performed. There is no evidence of ascites or lymphadenopathy. Urinary bladder unremarkable. No pelvic mass seen. No ascites. Impression: Probable minimal acute diverticulitis of the splenic flexure region of the colon. No abscess or free air. No obstruction. Small fat-containing umbilical hernia. Reviewed, dictated and finalized at location . Impression: Probable minimal acute diverticulitis of the splenic flexure region of the colo n. No abscess or free air. No obstruction. Small fat-containing umbilical hernia.
--- OUTSIDE RECORDS SUMMARY | 2024-10-15 09:22 | XMS_ITS | Clinical Summary ---
Author Organization [facility] Address [address] [facility] [place] [address] Care Team Providers Care Geological Specialist Name Role Phone Jens Johnson MD Primary Care Provider [phone] Source Comments [facility],non-owned Affiliates and Associated Physician Practices is amultiple site organization consisting of ambulatory clinics and hospital sitesin [place], [place], [place] and [place]. This disclosure is being madepursuant to the Care Everywhere program and may not contain all information available regarding this patient. Last updated 17.[facility] Allergies Active Allergy Reactions Criticality Noted Date [...] Diagnosed Date Coronary artery disease invo lving [place] coronary artery of [place] heart 03/23/2017 Social History Tobacco Use Types Packs/Day Years Used Date Smoking Tobacco: Never Assessed Comments Unknown Sex and Gender Information Value Date Recorded Sex Assigned at Not on file Legal Sex Female 8:02 AM GALLERY HOST Gender Identity Not on file Sexual Orientation Not on file Last Filed Vital Signs Vital Sign Reading Time Taken Comments Blood Pressure 129/64 03/24/2017 11:59 AM GALLERY HOST Pulse 95 03/24/2017 11:59 AM GALLERY HOST Temperature 36.5 C (97.7 F) 03/24/2017 11:59 AM GALLERY HOST Respiratory Rate 18 03/24/2017 11:59 AM GALLERY HOST Oxygen Saturation 100% 03/24/2017 11:59 AM GALLERY HOST Inhaled Oxygen Concentration - - Weight 95.3 kg (210 lb) 03/24/2017 6:15 AM GALLERY HOST Height 162.6 cm (5' 4) 03/23/2017 8:43 AM GALLERY HOST Body Mass Index 36.05 03/23/2017 8:43 AM GALLERY HOST Plan of Treatment Health Maintenance Due Date [...] season) 2023 DEPRESSION SCREENING 04/05/2024 INFLUENZA VACCINE (#1) 2024 HEPATITIS B VACCINE Aged Out No [...] patient's age to complete this topic Insurance [facility] MEDICARE Advance Directives * Full Code (Latest Code Status on File) Date Activated Date Inactivated Comments 03/23/2017 11:04 AM 03/24/2017 4:56 PM Care Teams Geological Specialist Relationship Specialty Start Date End Date Jens Johnson MD [address] [place] [id number] PCP - General Family Medicine 03/23/17
--- OUTSIDE RECORDS SUMMARY | 2024-10-15 09:22 | XMS_ITS | Clinical Summary ---
Author Organization [facility] Address [address] [place] [address] Phone Care Team Providers Care Resource Room Teacher Name Role Phone Aly Peterson DO Primary Care Provider [phone] Allergies Active Allergy Reactions Criticality Noted Date [...] ONCE DAILY DOSE INCREASE 2 Active Nystop 737503 UNIT/GM powder Apply topically 2 (two) times [...] 04/29/2017 Coronary arteriosclerosis 04/29/2017 Coronary arteriosclerosis in [place] artery 03/23 Hypertensive disorder 12/31/2016 Resolved Problems [...] on file Legal Sex Female 8:27 AM [facility] Gender Identity Not on file Sexual Orientation [...] / Low and Medium Risk (1 of 2 - PCV) 06/15/1993 Influenza Vaccine (#1) 2024 03/25/2021, 2019 Insurance [facility] Care Teams Resource Room Teacher Relationship Specialty Start Date End Date Aly Peterson DO [address] [place] [address] PCP - General Internal Medicine 06/17/20
[2024-10-15 09:26] VITALS: BP 179/83; PULSE 86; RESP 20; TEMP 36.6; O2SAT 100
--- NOTE | 2024-10-15 09:36 | ECG_ITS ---
Test Date: 2024-10-15 09:35:52 Measurements Intervals [place] Rate: 84 P: 5 WA: 175 QRS: 19 QRSD: 66 T: 31 QT: 350 QTc: 416 Interpretive Statements SINUS RHYTHM NONSPECIFIC T-WAVE ABNORMALITY ABNORMAL ECG Electronically Signed On 10-15-2024 11:41:10 CDT by Andrae Jarquin M.D.
[2024-10-15] MEDS: ONDANSETRON INJ 4 MG/2 ML VIAL IV PUSH (09:48)
[2024-10-15 09:51] LABS: Hematocrit 35.2 % (37.0-47.0); Hemoglobin 10.6 g/dL (12.0-15.0); Immature Granulocyte Percent A 0.5 % (0-0.5); Lymphocytes Absolute Auto 2.26 K/mm3 (0.9-3.2); Mean Corpuscular HGB Conc 30.1 g/dl (32-36); Mean Corpuscular Hemoglobin 25.7 pg (26-34); Mean Corpuscular Volume 85.4 fl (80-100); Nucleated Red Blood Cells Absolute Auto 0.000 K/mm3 (0.0-0.012); Nucleated Red Blood Cells Perc 0.0 % (0.0-0.2); Platelet Count Result 360 k/mm3 (150-375); Red Blood Count 4.12 M/mm3 (4.2-5.4); White Blood Count 11.3 K/mm3 (4.5-10.0)
[2024-10-15 10:10] LABS: INR 1.0; Prothrombin Time 12.8 Seconds (11.1-14.7)
[2024-10-15 10:11] LABS: Partial Thromboplastin Time 27.9 Seconds (22.3-36.8)
[2024-10-15 10:15] LABS: Alanine Aminotransferase 22 U/L (6-35); Albumin Level 4.0 g/dL (3.5-5.1); Alkaline Phosphatase 117 U/L (38-126); Anion Gap 16 mmol/L (4-12); Aspartate Amino Transferase 23 U/L (14-36); Bilirubin,Total 0.3 mg/dL (0.2-1.3); Blood Urea Nitrogen 79 mg/dL (7-17); Calcium 9.9 mg/dL (8.4-10.2); Carbon Dioxide 14 mmol/L (22-30); Chloride 110 mmol/L (98-107); Estimated CRCL calculation 16 ml/min; Estimated Glomerular Filt Rate 17; Glucose 207 mg/dL (65-110); Lipase 323 U/L (23-300); Potassium 4.3 mmol/L (3.4-5.0); Sodium 140 mmol/L (137-145); Total Protein 8.3 g/dL (6.3-8.2)
--- NOTE | 2024-10-15 10:27 | ED_ITS ---
HPI - General Adult General Chief complaint: Abdominal Pain Stated complaint: my tummy hurts Time Seen by Provider: 10/15/24 09:29 History of Present Illness HPI narrative: Patient is an 79-year-old female who presents ER with abdominal pain. Reports that is been ongoing over last 2 weeks. Worsened today. Is having dyspepsia a makes her feel nauseous. Vomiting. She has passed gas today. She has tenderness on around her umbilicus where there is a hernia present that is tender to touch. Related Data Home Medications ?Medication ?Instructions ?Recorded ?Confirmed ?Last Taken ?Type fluticasone propionate 50 2 spray intranasal DAILY PRN nasal 09/03/24 09/28/24 Unknown History mcg/actuation nasal congestion spray,suspension Allergies Allergy/AdvReac Type Severity Reaction Status Date / Time codeine Allergy Intermediate Rash Verified 10/15/24 10:46 Penicillins Allergy Intermediate Rash Verified 10/15/24 10:46 Sulfa (Sulfonamide Allergy Intermediate cheeks get Verified 10/15/24 10:46 Antibiotics) really red Atarax Allergy Unknown deep sleep Unverified 11/05/23 08:30 hydroxyzine (From Atarax) AdvReac Unknown deep sleep Verified 10/15/24 10:46 mulberry Allergy Mild Rash Uncoded 10/15/24 10:46 Review of Systems 2 Review of Systems: All systems reviewed & are unremarkable except as noted in HPI and below Constitutional: Constitutional: Reports no additional constitutional complaints Cardiovascular: Cardiovascular: Reports no additional cardiovascular complaints Respiratory: Respiratory: Reports no additional respiratory complaints Gastrointestinal: Gastrointestinal: Reports no additional gastrointestinal complaints Neurologic: Reports system reviewed and no additional complaints, except as documented [facility] Past Medical History Medical History Encounter for immunization Neurocognitive disorder Intertrochanteric fracture of left hip Psychogenic formication Pulmonary HTN Metabolic acidosis NATE (acute kidney injury) Sepsis CHF (congestive heart failure), NYHA class I Anemia Postmenopausal Chronic kidney disease, stage 4 (severe) Coronary artery disease involving [place] heart without angina pectoris Diabetic peripheral neuropathy Hyperlipidemia, unspecified Hypertension, essential Thrombosed external hemorrhoid Type 2 diabetes mellitus with hyperglycemia PAD (peripheral artery disease) Surgical History Surgical History History of hip surgery with femur H/O heart artery stent Hx of tonsillectomy History of cholecystectomy Family History Family History Mother Cerebrovascular accident Diabetes mellitus Family history of cardiovascular disease Father Myocardial infarction Sibling Colon cancer Congestive heart failure Other Hypertension Social History Social History Social History: The patient had 3 children. 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 Her rTey is the durable power senior stereo compiler team lead for healthcare. The patient is a full code. Who is a lifelong nonsmoker. She does not use any alcohol marijuana or illicit drugs. Code status full code Smoking status: Never smoker Second hand tobacco smoke exposure: No Alcohol intake: never Substance use: never Substance use type: does not use Do You Feel Safe in your Home?: Yes Lack of Transportation: No Lack of Food: Never True Current Housing: I Have Housing Concerned About Future Housing: No Difficulty Paying Gas/Electric Bills: No Difficulty Paying for Meds: No Currently Unemployed: No Education: High School Diploma/GED Difficulty w/ Childcare or Family Care: No Living arrangements: with family Occupation/Education: retired Gender identity (if verbalized by the patient): Female Sexual Orientation (if Verbalized by the Patient): Straight or Heterosexual Spiritual care concerns: No Agree to blood products: Yes Exam 2 Narrative: GENERAL: Uncomfortable appearing, obese, and in no acute distress. HEAD: Normocephalic, atraumatic. ENT: Mucous membranes moist. CHEST: Clear to auscultation. No respiratory distress. HEART: Regular rate and rhythm. Normal peripheral pulses. ABDOMEN: Soft, nondistended. Umbilical hernia that is tender and firm., it was able to be reduced and hernia defect can be palpated. EXTREMITIES: Normal range of motion. 1+ edema. SKIN: Warm, dry, no rash. NEURO: Alert and oriented x3. PSYCH: Normal mood and affect. Course Course Emergency Course: Patient received GI cocktail and is feeling much better in terms of discomfort in chest. Educated on lab results. She is a bit dry received IV fluid. She will be placed on oral antibiotics for diverticulitis. Discharge. Vital Signs Vital signs: Vital Signs Temperature 97.9 F 10/15/24 09:26 Pulse Rate 86 10/15/24 09:26 Respiratory Rate 20 10/15/24 09:26 Blood Pressure 179/83 H 10/15/24 09:26 Pulse Oximetry 100 10/15/24 09:26 Oxygen Delivery Room Air 10/15/24 09:26 Temperature 97.9 F 10/15/24 09:26 Pulse Rate 76 10/15/24 11:57 Respiratory Rate 20 10/15/24 11:57 Blood Pressure 155/67 H 10/15/24 11:57 Pulse Oximetry 97 10/15/24 11:57 Oxygen Delivery Room Air 10/15/24 09:26 Medical Decision Making Vital Signs Vital Signs: Vital Signs Temperature 97.9 F 10/15/24 09:26 Pulse Rate 86 10/15/24 09:26 Respiratory Rate 20 10/15/24 09:26 Blood Pressure 179/83 H 10/15/24 09:26 Pulse Oximetry 100 10/15/24 09:26 Oxygen Delivery Room Air 10/15/24 09:26 Temperature 97.9 F 10/15/24 09:26 Pulse Rate 76 10/15/24 11:57 Respiratory Rate 10/15/24 11:57 Blood Pressure 155/67 H 10/15/24 11:57 Pulse Oximetry 97 10/15/24 11:57 Oxygen Delivery Room Air 10/15/24 09:26 Lab Data 10/15/24 09:38 10/15/24 09:38 Labs: Lab Results 10/15/24 10/15/24 10/15/24 Range/Units 09:37 09:38 10:38 WBC 11.3 H (4.5-10.0) K/mm3 RBC 4.12 L (4.2-5.4) M/mm3 Hgb 10.6 L (12.0-15.0) g/dL Hct 35.2 L (37.0-47.0) % MCV 85.4 (80-100) fl MCH 25.7 L (26-34) pg MCHC 30.1 L (32-36) g/dl RDW 18.4 H (11.5-14.5) % Plt Count 360 (150-375) k/mm3 MPV 10.4 (7.4-10.4) fl Immature Gran % (Auto) 0.5 (0-0.5) % Neut % (Auto) 69.5 (45.5-73.1) % Lymph % (Auto) 20.0 (18.3-44.2) % [place] % (Auto) 7.1 (2.6-8.5) % Eos % (Auto) 2.5 (0-4.4) % Baso % (Auto) 0.4 (0.2-1.2) % Lymph # (Auto) 2.26 (0.9-3.2) K/mm3 [place] # (Auto) 0.8 H (0.1-0.6) K/mm3 Eos # (Auto) 0.3 (0-0.3) K/mm3 Baso # (Auto) 0.0 (0.0-0.1) K/mm3 Abs Immat Gran (auto) 0.06 H (0.00-0.031) K/mm3 Absolute Neuts (auto) 7.9 H (1.3-6.7) K/mm3 Absolute Nucleated RBC 0.000 (0.0-0.012) K/mm3 Nucleated RBC % 0.0 (0.0-0.2) % PT 12.8 (11.1-14.7) Seconds INR 1.0 APTT 27.9 (22.3-36.8) Seconds Sodium 140 (137-145) mmol/L Potassium 4.3 (3.4-5.0) mmol/L Chloride 110 H (98-107) mmol/L Carbon Dioxide 14 L (22-30) mmol/L Anion Gap 16 H (4-12) mmol/L BUN 79 H D (7-17) mg/dL Creatinine 2.69 H (0.7-1.0) mg/dL Estim Creat Clear Calc 16 ml/min Estimated GFR 17 L (59 - ) Glucose 207 H (65-110) mg/dL Calcium 9.9 (8.4-10.2) mg/dL Total Bilirubin 0.3 (0.2-1.3) mg/dL AST 23 (14-36) U/L ALT 22 (6-35) U/L Alkaline Phosphatase 117 (38-126) U/L Total Protein 8.3 H (6.3-8.2) g/dL Albumin 4.0 (3.5-5.1) g/dL Lipase 323 H (23-300) U/L Urine Color Yellow (Yellow) Urine Appearance Clear (Clear) Urine pH 5.0 (5.0-9.0) Ur Specific [place] 1.014 (1.001-1.035) Urine Protein 1+ H (Negative) mg/dL Urine Glucose (UA) Negative (Negative) mg/dL Urine Ketones Negative (Negative) mg/dL Ur Blood (Man) Negative (Negative) Urine Nitrate Negative (Negative) Urine Bilirubin Negative (Negative) Urine Urobilinogen 0.2 (<2.0) mg/dL Add Ur Microanalysis Reviewed Leukocyte Esterase Rfl Trace H (Negative) FEL[place]/UL Urine RBC 0-2 (0-2) /hpf Urine WBC 6-10 H (0-3) /hpf Ur Squamous Epith Cells None seen (Few) /hpf Amorphous Sediment Few H (None) Urine Bacteria None seen /hpf Urine Casts 3-5 Imaging Data Radiologist's impression: ITS Impressions Abdomen/Pelvis CT 10/15/24 10:43 Impression: Probable minimal acute diverticulitis of the splenic flexure region of the colon. No abscess or free air. No obstruction. Small fat-containing umbilical hernia. Discharge Plan Discharge Clinical Impression: Diverticulitis, Umbilical hernia, GERD (gastroesophageal reflux disease) Patient Disposition: Home Condition: Stable Instructions: Antibiotic Form, Diverticulitis (ED) Additional Instructions: Return to the emergency department if you develop severe abdominal pain, severe nausea and vomiting to the point where you are unable to keep down fluids, if you develop chest pain or difficulty breathing, blood in your stool, dizziness or fainting, or if you develop any other new or concerning symptoms as these could be signs of more serious medical illness. Try to stay well hydrated. Patient Language: Azeri Prescriptions: New ciprofloxacin HCl 500 mg tablet 500 mg PO Q12H Qty: 14 0RF metronidazole 500 mg tablet 500 mg PO Q8H Qty: 21 0RF ondansetron 4 mg tablet,disintegrating 4 mg PO Q6H PRN (Reason: nausea and vomiting) Qty: 10 0RF No Action (DME) FreeStyle Ronal 2 Castine Misc See Rx Instructions .Route Qty: 1 0RF Rx Instructions: As directed nystatin 100,000 unit/gram cream See Rx Instructions .ROUTE .COMPLEX Qty: 30 0RF Dose Instruction: APPLY CREAM TOPICALLY TO AFFECTED AREA TWICE DAILY Rx Instructions: APPLY CREAM TOPICALLY TO AFFECTED AREA TWICE DAILY (DME) FreeStyle Ronal 2 Sensor Kit See Rx Instructions .ROUTE .MEDSUPPLY Qty: 6 3RF Rx Instructions: As directed [place] DVT-PE Treat 30D Start 5 mg (74 tabs) tablets,dose pack See Rx Instructions PO PER PKG DIR Qty: 74 0RF Rx Instructions: PO PER PKG DIR fluticasone propionate 50 mcg/actuation spray,suspension 2 spray intranasal DAILY PRN (Reason: nasal congestion) Rx Instructions: administer into each nostril benzonatate 100 mg Capsule 200 mg PO TID Qty: 30 0RF docusate sodium 100 mg Capsule 100 mg PO Q12HR Qty: 30 0RF polyethylene glycol 3350 [Miralax] 17 gram Powder In Packet 17 g PO BID Qty: 14 0RF Preparation H (Poli Mathews) 50 % Pads, Medicated 1 pad topical PRN PRN (Reason: Perineal Discomfort) Qty: 30 0RF aspirin [Adult Aspirin Regimen] 81 mg tablet,delayed release (DR/EC) 81 mg PO DAILY Qty: 30 1RF atorvastatin 80 mg tablet 80 mg PO DAILY Qty: 90 1RF pantoprazole 20 mg tablet,delayed release (DR/EC) 20 mg PO QAM Qty: 90 1RF clopidogrel 75 mg tablet See Rx Instructions .ROUTE .COMPLEX Qty: 30 1RF Dose Instruction: TAKE 1 TABLET BY MOUTH IN THE MORNING Rx Instructions: TAKE 1 TABLET BY MOUTH IN THE MORNING amlodipine 10 mg tablet See Rx Instructions .ROUTE .COMPLEX Qty: 90 1RF Dose Instruction: Take 1 tablet by mouth once daily Rx Instructions: Take 1 tablet by mouth once daily ondansetron 4 mg tablet,disintegrating 4 mg PO Q8H PRN (Reason: nausea and vomiting) Qty: 20 0RF cefdinir 300 mg capsule 300 mg PO DAILY Qty: 10 0RF glipizide 2.5 mg tablet extended release 24hr See Rx Instructions .ROUTE .COMPLEX Qty: 90 0RF Dose Instruction: Take 1 tablet by mouth once daily Rx Instructions: Take 1 tablet by mouth once daily carvedilol [Coreg] 6.25 mg tablet 6.25 mg PO Q12HR Qty: 60 1RF hydrocortisone 2.5 % cream with perineal applicator 1 applic RECTAL BID PRN (Reason: hemorrhoids) Qty: 30 0RF acetaminophen [Tylenol] 325 mg capsule 650 mg PO Q6H PRN (Reason: pain) Qty: 30 0RF Follow-up/Referrals: Martir Esquivel MD [Primary Care Provider] - 1 Week
[2024-10-15] MEDS: SODIUM CHLORIDE 0.9% IV 1,000 ML 999 ML IV CONT (10:48)
[2024-10-15 10:50] VITALS: BP 137/79; PULSE 82; RESP 15; O2SAT 100
[2024-10-15 11:01] LABS: Add Urine Microscopic? YES; Appearance Urine Clear (Clear); Glucose Urine UA Negative (Negative); Leukocyte Esterase Ur Trace LEU/UL (Negative); Need Manual Microscopic Reviewed; Nitrate Urine Negative (Negative); Specific Grav Ur 1.014 (1.001-1.035)
[2024-10-15] MEDS: BELLADONNA ALK/PHENOB ELIX 10 ML, MAG HYDROX/ALUMINUM HYD/SIMETH 30 ML, LIDOCAINE 2% VI... PO (11:50)
[2024-10-15 11:57] VITALS: BP 155/67; PULSE 76; RESP 20; O2SAT 97
== END 2024-10-15 13:19 | disposition home or self-care (01) ==
PROVIDERS: Emergency Provider Emergency Medicine; PCP Family Medicine
DX: K57.92 Diverticulitis of intestine, part unspecified, without perforation or abscess without bleeding (principal); K42.9 Umbilical hernia without obstruction or gangrene; K21.9 Gastro-esophageal reflux disease without esophagitis; I50.9 Heart failure, unspecified; N18.4 Chronic kidney disease, stage 4 (severe); I25.10 Atherosclerotic heart disease of native coronary artery without angina pectoris; I13.0 Hypertensive heart and chronic kidney disease with heart failure and stage 1 through stage 4 chronic kidney disease, or unspecified chronic kidney disease; E78.5 Hyperlipidemia, unspecified; E11.22 Type 2 diabetes mellitus with diabetic chronic kidney disease; I73.9 Peripheral vascular disease, unspecified
CPT/HCPCS: 36415; 74176; 80053; 81001; 83690; 85025; 85610; 85730; 87086; 93005; 96361; 96374; 99284; A9270; J2405; J7030

== ENCOUNTER 2024-10-24 14:21 | Emergency (ER) | payer MEDICARE, SELFPAY ==
--- NOTE | ~2024-10-24 | CT_ITS ---
EXAMINATION: CT abdomen pelvis wo con DATE: 10/24/2024 21:03 INDICATION: abd pain, bloody bowel movements TECHNIQUE: Computed tomography (CT) of the abdomen and pelvis was performed without intravenous contr ast. Automated exposure control and iterative reconstruction technique were employed. The dose-length product was 915.76 mGy-cm. COMPARISON: 10/15/2024. FINDINGS: Lower thorax: Mitral calcification. Coronary stenting and calcification. Mild dependent scar/atelecta sis. Liver: Normal. Biliary/Gallbladder: Gallbladder is absent. No bile duct dilation. Punctate cortical calcification. Pancreas: No mass or duct dilation. Spleen: Normal. Adrenals:No mass. Kidneys: Multiple bilateral simple cysts. Hemorrhagic left lower pole cyst. Left renal atrophy. Hyper dense material in multiple calyces on the left. GI tract: No small bowel dilation. The rectum is dilated to 6.8 cm by formed stool, with adjacent wal l thickening. Asymmetric wall thickening of the rectum, with proximal shouldering. Normal appendix. D iverticulosis without diverticulitis. Interval resolution of the previously noted inflammatory change at the splenic flexure. Mesentery/Peritoneum: No ascites, mass, or free air. Retroperitoneum: No mass. Atherosclerotic calcifications of intra-abdominal arterial vessels. Pelvis: Normal urinary bladder. Focal calcifications in the cervix, uterus otherwise normal. Normal b ilateral ovaries.. Soft Tissues: Small uncomplicated fat-containing bilateral inguinal and umbilical hernias Bones: No acute osseous finding. Partially visualized, uncomplicated appearing left femoral hardware . IMPRESSION: Left staghorn calculi and left renal atrophy. Findings concerning for a rectal mass. Some degree of fecal impaction is suspected, with adjacent wall thickening, that may represent early stercoral colitis. Reviewed, dictated and finalized at location K. IMPRESSION: Left staghorn calculi and left renal atrophy. Findings concerning for a rectal mass. Some degree of fecal impaction is suspected, with adjacent wall thickening, travon t may represent early stercoral colitis.
--- NOTE | ~2024-10-24 | XR_ITS ---
EXAMINATION: XR chest 2V Exam Date/Time: 10/24/2024 17:43 CDT HISTORY: cardiac history Comparison: 09/25/2024. RESULT: Lines, tubes, and devices: Coronary stenting. Cholecystomy clips. Lungs and pleura: Minimal bibasilar scar/atelectasis, otherwise clear. Cardiomediastinal silhouette: Stable. Other: No acute osseous or upper abdominal finding. IMPRESSION: No acute cardiopulmonary process. Reviewed, dictated and finalized at location K.
--- OUTSIDE RECORDS SUMMARY | 2024-10-24 14:25 | XMS_ITS | Clinical Summary ---
Author Organization [facility] Address [address] [place] [address] Care Team Providers Care Career Education Teacher Name Role Phone Jens Johnson MD Primary Care Provider [phone] Source Comments [facility],non-owned Affiliates and Associated Physician Practices is amultiple site organization consisting of ambulatory clinics and hospital sitesin [place], [place], [place] and [place]. This disclosure is being madepursuant to the Care Everywhere program and may not contain all information available regarding this patient. Last updated 17.[facility] [employer] Allergies Active Allergy Reactions Criticality Noted Date [...] Diagnosed Date Coronary artery disease invo lving [place] coronary artery of [place] heart 03/23/2017 Social History Tobacco Use Types Packs/Day Years Used Date Smoking Tobacco: Never Assessed Comments Unknown Sex and Gender Information Value Date Recorded Sex Assigned at Not on file Legal Sex Female 8:02 AM PRIZE JACKER Gender Identity Not on file Sexual Orientation Not on file Last Filed Vital Signs Vital Sign Reading Time Taken Comments Blood Pressure 129/64 03/24/2017 11:59 AM PRIZE JACKER Pulse 95 03/24/2017 11:59 AM PRIZE JACKER Temperature 36.5 C (97.7 F) 03/24/2017 11:59 AM PRIZE JACKER Respiratory Rate 18 03/24/2017 11:59 AM PRIZE JACKER Oxygen Saturation 100% 03/24/2017 11:59 AM PRIZE JACKER Inhaled Oxygen Concentration - - Weight 95.3 kg (210 lb) 03/24/2017 6:15 AM PRIZE JACKER Height 162.6 cm (5' 4) 03/23/2017 8:43 AM PRIZE JACKER Body Mass Index 36.05 03/23/2017 8:43 AM PRIZE JACKER Plan of Treatment Health Maintenance Due Date [...] patient's age to complete this topic Insurance [facility] Advance Directives * Full Code (Latest Code Status on File) Date Activated Date Inactivated Comments 03/23/2017 11:04 AM 03/24/2017 4:56 PM Care Teams Career Education Teacher Relationship Specialty Start Date End Date Jens Johnson MD [address] [place] [id number] PCP - General Family Medicine 03/23/17
--- OUTSIDE RECORDS SUMMARY | 2024-10-24 14:26 | XMS_ITS | Patient Health Record ---
Author Organization [facility] [email or web address] [facility] Address [address] [place] [address] Care Team Providers Care Registered Public Health Nurse Name Role Phone Charles Groves Unavailable [phone] Reason For Referral No Information Medications Medication SIG (Take, Route, Frequency, Duration) Notes Start Date End Date Status predniSONE 10 MG Oral Act anahi hydrOXYzine HCl 10 MG Oral Active Glimepiride 2 MG Oral Act anahi Tradjenta 5 MG Oral Activ e Furosemide 80 MG Oral Act anahi Ferrous Sulfate 325 (65 Fe) MG Oral Active Simvastatin 20 MG Oral Ac tive Lisinopril 5 MG Oral Acti ve Gabapentin 300 MG Oral Ac tive FEBUXOSTAT 40 MG TABLET *Reorder from TableGrabber for eRx and Interaction Alerts* Active Glimepiride 4 MG Oral Act anahi Ciprofloxacin HCl 250 MG Oral Active levoFLOXacin 500 MG Oral Active Plan Of Treatment No Information Insurance Providers Payer Name Payer Address Payer Phone Subscriber Number Group Number Insured Name Patient Relationship to Insured Coverage Start Date Coverage End Date [facility] [address] [place] [address] [id number] [id number] CULLEN Spouse - patient is the spouse of the insured
--- OUTSIDE RECORDS SUMMARY | 2024-10-24 14:26 | XMS_ITS | Clinical Summary ---
Author Organization [facility] Address [address] [place] [id number] Phone Care Team Providers Care Port Drier Name Role Phone Aly Peterson DO Primary Care Provider [phone] Allergies Active Allergy Reactions Criticality Noted Date [...] ONCE DAILY DOSE INCREASE 2 Active Nystop 240992 UNIT/GM powder Apply topically 2 (two) times [...] 04/29/2017 Coronary arteriosclerosis 04/29/2017 Coronary arteriosclerosis in [place] artery 03/23 Hypertensive disorder 12/31/2016 [...] on file Legal Sex Female 8:27 AM [facility] Gender Identity Not on file Sexual Orientation [...] Influenza Vaccine (#1) 2024 03/25/2021, 2019 Insurance [facility] Care Teams [place] Relationship Specialty Start Date End Date Aly Peterson DO [address] [place] [address] PCP - General Internal Medicine 06/17/20
[2024-10-24 14:30] VITALS: BP 144/82; PULSE 101; RESP 16; TEMP 37; O2SAT 97
[2024-10-24 17:05] VITALS: BP 139/70; PULSE 101; RESP 17; O2SAT 98
--- NOTE | 2024-10-24 17:06 | ED.GIBLEED ---
HPI - GI Bleed General Chief complaint: GI Bleed <Kelsey Marsh, EXTERNAL AUDITOR - Last Filed: 10/24/24 17:10> Stated complaint: a lot of rectal bleeding <Kelsey Marsh EXTERNAL AUDITOR - Last Filed: 10/24/24 17:10> Time Seen by Provider: 10/24/24 17:00 <Kelsey Marsh EXTERNAL AUDITOR - Last Filed: 10/24/24 17:10> Focused HPI: Patient is an 79-year-old female who presents to the ER concerns of rectal bleeding. She reports her symptoms have been going on since this past weekend. Patient's reports she had a ?good bowel movement this morning but patient does have bright red blood in her stools. She endorses a history of diabetes, chronic kidney disease, osteoarthritis, and hemorrhoids. Patient denies any back pain, shortness of breath, chest pain, or recent fevers. GENERAL: Ill-appearing, well-nourished, and in no acute distress. HEAD: Normocephalic, atraumatic. CHEST: Clear to auscultation. ?No respiratory distress. HEART: Regular rate and rhythm.? NEURO: ?Alert and oriented x3. Tearful. Patient screened in triage and initial orders placed.? ?Additional care and disposition to be based upon?diagnostic testing and treatment. <Kelsey Marsh, EXTERNAL AUDITOR - Last Filed: 10/24/24 17:10> Focused HPI: Patient is an 79-year-old female who presents to the ER concerns of rectal bleeding. She reports her symptoms have been going on intermittently for months. Patient's reports she had a ?good bowel movement this morning but patient does have bright red blood in her stools. She endorses a history of diabetes, chronic kidney disease, osteoarthritis, and hemorrhoids. Patient denies any back pain, shortness of breath, chest pain, or recent fevers. GENERAL: Elderly, well-nourished, and in no acute distress. HEAD: Normocephalic, atraumatic. CHEST: Clear to auscultation. ?No respiratory distress. HEART: Regular rate and rhythm.? NEURO: ?Alert and oriented x3. Tearful. Patient screened in triage and initial orders placed.? ?Additional care and disposition to be based upon?diagnostic testing and treatment. <Nory Whitmore PA-C - Last Filed: 10/24/24 21:55> Related Data Home medications: Home Medications ?Medication ?Instructions ?Recorded ?Confirmed ?Last Taken ?Type fluticasone propionate 50 2 spray intranasal DAILY PRN nasal 09/03/24 10/17/24 Unknown History mcg/actuation nasal congestion spray,suspension <Kelsey Marsh APRN - Last Filed: 10/24/24 17:10> Allergies/Adverse reactions: Allergies Allergy/AdvReac Type Severity Reaction Status Date / Time codeine Allergy Intermediate Rash Verified 10/24/24 14:33 Penicillins Allergy Intermediate Rash Verified 10/24/24 14:33 Sulfa (Sulfonamide Allergy Intermediate cheeks get Verified 10/24/24 14:33 Antibiotics) really red Atarax Allergy Unknown deep sleep Unverified 11/05/23 08:30 hydroxyzine (From Atarax) AdvReac Unknown deep sleep Verified 10/24/24 14:33 mulberry Allergy Mild Rash Uncoded 10/24/24 14:33 <Kelsey Marsh, EXTERNAL AUDITOR - Last Filed: 10/24/24 17:10> Review of Systems Review of Systems: All systems reviewed & are unremarkable except as noted in HPI and below <Nory Whitmore PA-C - Last Filed: 10/24/24 21:55> [facility] Past Medical History Medical History: Medical History Encounter for immunization Neurocognitive disorder Intertrochanteric fracture of left hip Psychogenic formication Pulmonary HTN Metabolic acidosis NATE (acute kidney injury) Sepsis CHF (congestive heart failure), NYHA class I Anemia Postmenopausal Chronic kidney disease, stage 4 (severe) Coronary artery disease involving [place] heart without angina pectoris Diabetic peripheral neuropathy Hyperlipidemia, unspecified Hypertension, essential Thrombosed external hemorrhoid Type 2 diabetes mellitus with hyperglycemia PAD (peripheral artery disease) <Kelsey Marsh APRN - Last Filed: 10/24/24 17:10> Surgical History Surgical History: Surgical History History of hip surgery with femur H/O heart artery stent Hx of tonsillectomy History of cholecystectomy <Kelsey Marsh, EXTERNAL AUDITOR - Last Filed: 10/24/24 17:10> Family History Family History: Family History Mother Cerebrovascular accident Diabetes mellitus Family history of cardiovascular disease Father Myocardial infarction Sibling Colon cancer Congestive heart failure Other Hypertension <Kelsey Kenny Marsh, EXTERNAL AUDITOR - Last Filed: 10/24/24 17:10> Social History Social History: Social History Social History: The patient had 3 children. 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 Power contract attorney for healthcare. Her Trey is the durable power contract attorney for healthcare. The patient is a full code. Who is a lifelong nonsmoker. She does not use any alcohol marijuana or illicit drugs. Code status full code Smoking status: Never smoker Second hand tobacco smoke exposure: No Alcohol intake: never Substance use: never Substance use type: does not use Do You Feel Safe in your Home?: Yes Lack of Transportation: No Lack of Food: Never True Current Housing: I Have Housing Concerned About Future Housing: No Difficulty Paying Gas/Electric Bills: No Difficulty Paying for Meds: No Currently Unemployed: No Education: High School Diploma/GED Difficulty w/ Childcare or Family Care: No Living arrangements: with family Occupation/Education: retired Gender identity (if verbalized by the patient): Female Sexual Orientation (if Verbalized by the Patient): Straight or Heterosexual Spiritual care concerns: No Agree to blood products: Yes <Kelsey Marsh, EXTERNAL AUDITOR - Last Filed: 10/24/24 17:10> Exam Narrative: GENERAL: Well-appearing, well-nourished, and in no acute distress. HEAD: Normocephalic, atraumatic. EYES: EOMI. CHEST: Clear to auscultation. No respiratory distress. No wheezes rales or rhonchi HEART: Regular rate and rhythm. No murmur heard. Normal peripheral pulses. ABDOMEN: Soft, nontender, nondistended, normal active bowel sounds. EXTREMITIES: Normal range of motion. No edema. SKIN: Warm, dry, no rash. NEURO: No focal deficits. Alert and oriented x3. PSYCH: Normal mood and affect RECTAL: Several external hemorrhoids present. No active bleeding, Hemoccult positive <Nory Whitmore PA-C - Last Filed: 10/24/24 21:55> Course Course Emergency Course: Patient and family updated on workup and agree with plan of care <Nory Whitmore PA-C - Last Filed: 10/24/24 21:55> Vital Signs Vital signs: Vital Signs Temperature 98.6 F 10/24/24 14:30 Pulse Rate 101 H 10/24/24 14:30 Respiratory Rate 16 10/24/24 14:30 Blood Pressure 144/82 H 10/24/24 14:30 Pulse Oximetry 97 10/24/24 14:30 Oxygen Delivery Room Air 10/24/24 14:30 Temperature 98.6 F 10/24/24 20:46 Pulse Rate 95 10/24/24 20:46 Respiratory Rate 17 10/24/24 20:46 Blood Pressure 170/93 H 10/24/24 20:46 Pulse Oximetry 98 10/24/24 20:46 Oxygen Delivery Autopap 10/24/24 20:40 <Kelsey Marsh, EXTERNAL AUDITOR - Last Filed: 10/24/24 17:10> Vital Signs Temperature 98.6 F 10/24/24 14:30 Pulse Rate 101 H 10/24/24 14:30 Respiratory Rate 16 10/24/24 14:30 Blood Pressure 144/82 H 10/24/24 14:30 Pulse Oximetry 97 10/24/24 14:30 Oxygen Delivery Room Air 10/24/24 14:30 Temperature 98.6 F 10/24/24 20:46 Pulse Rate 95 10/24/24 20:46 Respiratory Rate 17 10/24/24 20:46 Blood Pressure 170/93 H 10/24/24 20:46 Pulse Oximetry 98 10/24/24 20:46 Oxygen Delivery Autopap 10/24/24 20:40 <Nory Whitmore PA-C - Last Filed: 10/24/24 21:55> MDM - GI Bleed MDM Narrative Medical decision making narrative: Patient presents the emergency department for rectal bleeding. Reports this has been an ongoing issue over the last several months. Reports history of hemorrhoids, constipation. No active bleeding on exam. She is Hemoccult positive. Several external hemorrhoids present. She is afebrile and nontoxic appearing. Her vitals are stable. CBC with leukocytosis to 15.1. Hemoglobin appears stable. Kidney function appears stable. CT abdomen and pelvis shows findings concerning for a rectal mass. Some fecal impaction, may be early stercoral colitis. Patient and family updated on workup. Instructed on further care of constipation. Will be given follow-up with gastroenterology for further evaluation. They were given warnings to return to the ER <Nory Whitmore PA-C - Last Filed: 10/24/24 21:55> Differential Diagnosis Differential diagnosis: Likely hemorrhoids, Lower gastrointestinal hemorrhage, hematochezia, melena and anal fissure <Nory Whitmore PA-C - Last Filed: 10/24/24 21:55> Lab Data Attestation: I reviewed the patient's lab results. <Nory Whitmore PA-C - Last Filed: 10/24/24 21:55> Result diagrams: 10/24/24 17:04 10/24/24 17:04 <Kelsey Marsh APRN - Last Filed: 10/24/24 17:10> Labs: Lab Results 10/24/24 Range/Units 17:04 WBC 15.1 H (4.5-10.0) K/mm3 RBC 4.02 L (4.2-5.4) M/mm3 Hgb 10.4 L (12.0-15.0) g/dL Hct 34.0 L (37.0-47.0) % MCV 84.6 (80-100) fl MCH 25.9 L (26-34) pg MCHC 30.6 L (32-36) g/dl RDW 18.8 H (11.5-14.5) % Plt Count 335 (150-375) k/mm3 MPV 9.6 (7.4-10.4) fl Immature Gran % (Auto) 0.5 (0-0.5) % Neut % (Auto) 81.0 H (45.5-73.1) % Lymph % (Auto) 11.4 L (18.3-44.2) % [place] % (Auto) 6.4 (2.6-8.5) % Eos % (Auto) 0.5 (0-4.4) % Baso % (Auto) 0.2 (0.2-1.2) % Lymph # (Auto) 1.72 (0.9-3.2) K/mm3 [place] # (Auto) 1.0 H (0.1-0.6) K/mm3 Eos # (Auto) 0.1 (0-0.3) K/mm3 Baso # (Auto) 0.0 (0.0-0.1) K/mm3 Abs Immat Gran (auto) 0.07 H (0.00-0.031) K/mm3 Absolute Neuts (auto) 12.2 H (1.3-6.7) K/mm3 Absolute Nucleated RBC 0.000 (0.0-0.012) K/mm3 Nucleated RBC % 0.0 (0.0-0.2) % PT 13.8 (11.1-14.7) Seconds INR 1.1 APTT 27.6 (22.3-36.8) Seconds Sodium 138 (137-145) mmol/L Potassium 4.5 (3.4-5.0) mmol/L Chloride 108 H (98-107) mmol/L Carbon Dioxide 18 L (22-30) mmol/L Anion Gap 12 (4-12) mmol/L BUN 51 H D (7-17) mg/dL Creatinine 2.25 H (0.7-1.0) mg/dL Estim Creat Clear Calc Not Reportable Estimated GFR 21 L (59 - ) Glucose 204 H (65-110) mg/dL Calcium 9.6 (8.4-10.2) mg/dL Total Bilirubin 0.4 (0.2-1.3) mg/dL AST 26 (14-36) U/L ALT 18 (6-35) U/L Alkaline Phosphatase 107 (38-126) U/L Total Protein 8.0 (6.3-8.2) g/dL Albumin 4.0 (3.5-5.1) g/dL Blood Type O Positive Antibody Screen Negative <Kelsey Marsh, EXTERNAL AUDITOR - Last Filed: 10/24/24 17:10> Lab Results 10/24/24 Range/Units 17:04 WBC 15.1 H (4.5-10.0) K/mm3 RBC 4.02 L (4.2-5.4) M/mm3 Hgb 10.4 L (12.0-15.0) g/dL Hct 34.0 L (37.0-47.0) % MCV 84.6 (80-100) fl MCH 25.9 L (26-34) pg MCHC 30.6 L (32-36) g/dl RDW 18.8 H (11.5-14.5) % Plt Count 335 (150-375) k/mm3 MPV 9.6 (7.4-10.4) fl Immature Gran % (Auto) 0.5 (0-0.5) % Neut % (Auto) 81.0 H (45.5-73.1) % Lymph % (Auto) 11.4 L (18.3-44.2) % [place] % (Auto) 6.4 (2.6-8.5) % Eos % (Auto) 0.5 (0-4.4) % Baso % (Auto) 0.2 (0.2-1.2) % Lymph # (Auto) 1.72 (0.9-3.2) K/mm3 [place] # (Auto) 1.0 H (0.1-0.6) K/mm3 Eos # (Auto) 0.1 (0-0.3) K/mm3 Baso # (Auto) 0.0 (0.0-0.1) K/mm3 Abs Immat Gran (auto) 0.07 H (0.00-0.031) K/mm3 Absolute Neuts (auto) 12.2 H (1.3-6.7) K/mm3 Absolute Nucleated RBC 0.000 (0.0-0.012) K/mm3 Nucleated RBC % 0.0 (0.0-0.2) % PT 13.8 (11.1-14.7) Seconds INR 1.1 APTT 27.6 (22.3-36.8) Seconds Sodium 138 (137-145) mmol/L Potassium 4.5 (3.4-5.0) mmol/L Chloride 108 H (98-107) mmol/L Carbon Dioxide 18 L (22-30) mmol/L Anion Gap 12 (4-12) mmol/L BUN 51 H D (7-17) mg/dL Creatinine 2.25 H (0.7-1.0) mg/dL Estim Creat Clear Calc Not Reportable Estimated GFR 21 L (59 - ) Glucose 204 H (65-110) mg/dL Calcium 9.6 (8.4-10.2) mg/dL Total Bilirubin 0.4 (0.2-1.3) mg/dL AST 26 (14-36) U/L ALT 18 (6-35) U/L Alkaline Phosphatase 107 (38-126) U/L Total Protein 8.0 (6.3-8.2) g/dL Albumin 4.0 (3.5-5.1) g/dL Blood Type O Positive Antibody Screen Negative <Nory Whitmore PA-C - Last Filed: 10/24/24 21:55> Imaging Data Radiologist's impression: ITS Impressions Chest X-Ray 10/24/24 17:49 IMPRESSION: No acute cardiopulmonary process. Abdomen/Pelvis CT 10/24/24 21:05 IMPRESSION: Left staghorn calculi and left renal atrophy. Findings concerning for a rectal mass. Some degree of fecal impaction is suspected, with adjacent wall thickening, that may represent early stercoral colitis. <Nory Whitmore PA-C - Last Filed: 10/24/24 21:55> Critical Care Time Critical Care Time Critical Care Time: No <Nory Whitmore PA-C - Last Filed: 10/24/24 21:55> Discharge Plan Discharge Clinical Impression: Rectal bleeding, Abnormal abdominal CT scan Constipation Qualifiers: Constipation type: unspecified constipation type Qualified Code(s): K59.00 - Constipation, unspecified Anemia Qualifiers: Anemia type: unspecified type Qualified Code(s): D64.9 - Anemia, unspecified <Kelsey Marsh APRN - Last Filed: 10/24/24 17:10> Patient Disposition: Home <Kelsey Marsh APRN - Last Filed: 10/24/24 17:10> Condition: Stable <Kelsey Marsh APRN - Last Filed: 10/24/24 17:10> Instructions: Constipation (ED), Rectal Bleeding (ED), Anemia (ED) <Kelsey Marsh APRN - Last Filed: 10/24/24 17:10> Additional Instructions: Return to the ER if you experience fever, abdominal pain with nausea and vomiting, you are unable to keep down liquids or solids, worsening bleeding, you pass out, or any other symptoms that are concerning to you Take Colace daily. Remain well hydrated. Increase fruits and vegetables in your diet. Miralax as needed You have abnormal findings on your CT scan that is showing a possible mass in your rectum. Follow up with gastroenterology for further evaluation <Kelsey Marsh, EXTERNAL AUDITOR - Last Filed: 10/24/24 17:10> Patient Language: Sami <Kelsey Marsh, EXTERNAL AUDITOR - Last Filed: 10/24/24 17:10> Prescriptions: No Action (DME) FreeStyle Ronal 2 [place] Misc See Rx Instructions .Route Qty: 1 0RF Rx Instructions: As directed docusate sodium 100 mg capsule 100 mg PO TID Qty: 90 0RF hydrocortisone 2.5 % cream with perineal applicator 1 applic RECTAL BID PRN (Reason: hemorrhoids) Qty: 30 0RF pantoprazole 20 mg tablet,delayed release (DR/EC) 20 mg PO QAM Qty: 90 1RF Magic Mouthwash (Dr. Fletcher) 120 mL suspension 5 ml PO QID PRN (Reason: mouth discomfort) Qty: 120 0RF Rx Instructions: diphenhydramine 12.5 mg/5 mL oral elixir 40 mL; Lidocaine Viscous 2 % mucosal solution 40 mL; Maalox 200 mg-200 mg-20 mg/5 mL oral suspension 40 mL; Per 120 mL sertraline 25 mg tablet 25 mg PO DAILY Qty: 30 0RF nystatin 100,000 unit/gram cream See Rx Instructions .ROUTE .COMPLEX Qty: 30 0RF Dose Instruction: APPLY CREAM TOPICALLY TO AFFECTED AREA TWICE DAILY Rx Instructions: APPLY CREAM TOPICALLY TO AFFECTED AREA TWICE DAILY (DME) FreeStyle Ronal 2 Sensor Kit See Rx Instructions .ROUTE .MEDSUPPLY Qty: 6 3RF Rx Instructions: As directed Eliquis DVT-PE Treat 30D Start 5 mg (74 tabs) tablets,dose pack See Rx Instructions PO PER PKG DIR Qty: 74 0RF Rx Instructions: PO PER PKG DIR fluticasone propionate 50 mcg/actuation spray,suspension 2 spray intranasal DAILY PRN (Reason: nasal congestion) Rx Instructions: administer into each nostril polyethylene glycol 3350 [Miralax] 17 gram Powder In Packet 17 g PO BID Qty: 14 0RF Preparation H (Witch Bisi) 50 % Pads, Medicated 1 pad topical PRN PRN (Reason: Perineal Discomfort) Qty: 30 0RF aspirin [Adult Aspirin Regimen] 81 mg tablet,delayed release (DR/EC) 81 mg PO DAILY Qty: 30 1RF ciprofloxacin HCl 500 mg tablet 500 mg PO Q12H Qty: 14 0RF metronidazole 500 mg tablet 500 mg PO Q8H Qty: 21 0RF ondansetron 4 mg tablet,disintegrating 4 mg PO Q6H PRN (Reason: nausea and vomiting) Qty: 10 0RF atorvastatin 80 mg tablet 80 mg PO DAILY Qty: 90 1RF amlodipine 10 mg tablet See Rx Instructions .ROUTE .COMPLEX Qty: 90 1RF Dose Instruction: Take 1 tablet by mouth once daily Rx Instructions: Take 1 tablet by mouth once daily glipizide 2.5 mg tablet extended release 24hr See Rx Instructions .ROUTE .COMPLEX Qty: 90 0RF Dose Instruction: Take 1 tablet by mouth once daily Rx Instructions: Take 1 tablet by mouth once daily carvedilol [Coreg] 6.25 mg tablet 6.25 mg PO Q12HR Qty: 60 1RF clopidogrel 75 mg tablet See Rx Instructions .ROUTE .COMPLEX Qty: 30 1RF Dose Instruction: TAKE 1 TABLET BY MOUTH IN THE MORNING Rx Instructions: TAKE 1 TABLET BY MOUTH IN THE MORNING acetaminophen [Tylenol] 325 mg capsule 650 mg PO Q6H PRN (Reason: pain) Qty: 30 0RF <Kelsey Marsh APRN - Last Filed: 10/24/24 17:10> Follow-up/Referrals: Martir Esquivel MD [Primary Care Provider] - Ilir Mcrae MD [Physician] - <Kelsey Marsh APRN - Last Filed: 10/24/24 17:10>
[2024-10-24 17:12] LABS: Hematocrit 34.0 % (37.0-47.0); Hemoglobin 10.4 g/dL (12.0-15.0); Immature Granulocyte Percent A 0.5 % (0-0.5); Lymphocytes Absolute Auto 1.72 K/mm3 (0.9-3.2); Mean Corpuscular HGB Conc 30.6 g/dl (32-36); Mean Corpuscular Hemoglobin 25.9 pg (26-34); Mean Corpuscular Volume 84.6 fl (80-100); Nucleated Red Blood Cells Absolute Auto 0.000 K/mm3 (0.0-0.012); Nucleated Red Blood Cells Perc 0.0 % (0.0-0.2); Platelet Count Result 335 k/mm3 (150-375); Red Blood Count 4.02 M/mm3 (4.2-5.4); White Blood Count 15.1 K/mm3 (4.5-10.0)
[2024-10-24 17:27] LABS: Alanine Aminotransferase 18 U/L (6-35); Albumin Level 4.0 g/dL (3.5-5.1); Alkaline Phosphatase 107 U/L (38-126); Anion Gap 12 mmol/L (4-12); Aspartate Amino Transferase 26 U/L (14-36); Bilirubin,Total 0.4 mg/dL (0.2-1.3); Blood Urea Nitrogen 51 mg/dL (7-17); Calcium 9.6 mg/dL (8.4-10.2); Carbon Dioxide 18 mmol/L (22-30); Chloride 108 mmol/L (98-107); Estimated Glomerular Filt Rate 21; Glucose 204 mg/dL (65-110); Potassium 4.5 mmol/L (3.4-5.0); Sodium 138 mmol/L (137-145); Total Protein 8.0 g/dL (6.3-8.2)
[2024-10-24 17:29] LABS: INR 1.1; Prothrombin Time 13.8 Seconds (11.1-14.7)
[2024-10-24 17:30] LABS: Partial Thromboplastin Time 27.6 Seconds (22.3-36.8)
[2024-10-24 20:40] VITALS: BP 180/90; PULSE 99; RESP 17; TEMP 37; O2SAT 98
[2024-10-24 20:46] VITALS: BP 170/93; PULSE 95; RESP 17; TEMP 37; O2SAT 98
--- OUTSIDE RECORDS SUMMARY | 2024-10-24 20:50 | XMS_ITS | Clinical Summary ---
Author Organization [facility] Address [address] [place] [address] Care Team Providers Care Air Valve Repairer Name Role Phone Jens Johnson MD Primary Care Provider [phone] Source Comments [facility],non-owned Affiliates and Associated Physician Practices is amultiple site organization consisting of ambulatory clinics and hospital sitesin [place], [place], [place] and [place]. This disclosure is being madepursuant to the Care Everywhere program and may not contain all information available regarding this patient. Last updated 17.[facility] [employer] Allergies Active Allergy Reactions Criticality Noted Date [...] Diagnosed Date Coronary artery disease invo lving [place] coronary artery of [place] heart 03/23/2017 Social History Tobacco Use Types Packs/Day Years Used Date Smoking Tobacco: Never Assessed Comments Unknown Sex and Gender Information Value Date Recorded Sex Assigned at Not on file Legal Sex Female 8:02 AM DENTAL PRACTICE MANAGER Gender Identity Not on file Sexual Orientation Not on file Last Filed Vital Signs Vital Sign Reading Time Taken Comments Blood Pressure 129/64 03/24/2017 11:59 AM DENTAL PRACTICE MANAGER Pulse 95 03/24/2017 11:59 AM DENTAL PRACTICE MANAGER Temperature 36.5 C (97.7 F) 03/24/2017 11:59 AM DENTAL PRACTICE MANAGER Respiratory Rate 18 03/24/2017 11:59 AM DENTAL PRACTICE MANAGER Oxygen Saturation 100% 03/24/2017 11:59 AM DENTAL PRACTICE MANAGER Inhaled Oxygen Concentration - - Weight 95.3 kg (210 lb) 03/24/2017 6:15 AM DENTAL PRACTICE MANAGER Height 162.6 cm (5' 4) 03/23/2017 8:43 AM DENTAL PRACTICE MANAGER Body Mass Index 36.05 03/23/2017 8:43 AM DENTAL PRACTICE MANAGER Plan of Treatment Health Maintenance Due Date [...] patient's age to complete this topic Insurance [facility] MEDICARE Advance Directives * Full Code (Latest Code Status on File) Date Activated Date Inactivated Comments 03/23/2017 11:04 AM 03/24/2017 4:56 PM Care Teams Air Valve Repairer Relationship Specialty Start Date End Date Jens Johnson MD [address] [place] [id number] PCP - General Family Medicine 03/23/17
--- OUTSIDE RECORDS SUMMARY | 2024-10-24 20:50 | XMS_ITS | Clinical Summary ---
Author Organization [facility] Address [address] [place] [id number] Phone Care Team Providers Care Engineer/Conductor Name Role Phone Aly Peterson DO Primary Care Provider [phone] Allergies Active Allergy Reactions Criticality Noted Date [...] ONCE DAILY DOSE INCREASE 2 Active Nystop 445190 UNIT/GM powder Apply topically 2 (two) times [...] 04/29/2017 Coronary arteriosclerosis 04/29/2017 Coronary arteriosclerosis in [place] artery 03/23 Hypertensive disorder 12/31/2016 Resolved Problems [...] on file Legal Sex Female 8:27 AM [facility] Gender Identity Not on file Sexual Orientation [...] Influenza Vaccine (#1) 2024 03/25/2021, 2019 Insurance [employer] Care Teams Engineer/Conductor Relationship Specialty Start Date End Date Aly Peterson DO [address] [place] [address] PCP - General Internal Medicine 06/17/20
[2024-10-24] MEDS: ONDANSETRON HCL ODT 4 MG TABLET PO (21:50)
[2024-10-24 22:24] VITALS: BP 163/72; PULSE 85; RESP 18; O2SAT 98
== END 2024-10-24 22:26 | disposition home or self-care (01) ==
PROVIDERS: Student in an Organized Health Care Education/Training Program; Emergency Provider Physician Assistant; PCP Family Medicine
DX: K62.5 Hemorrhage of anus and rectum (principal); K59.00 Constipation, unspecified; D64.9 Anemia, unspecified; R93.5 Abnormal findings on diagnostic imaging of other abdominal regions, including retroperitoneum; E11.22 Type 2 diabetes mellitus with diabetic chronic kidney disease; I13.0 Hypertensive heart and chronic kidney disease with heart failure and stage 1 through stage 4 chronic kidney disease, or unspecified chronic kidney disease; I50.9 Heart failure, unspecified; N18.4 Chronic kidney disease, stage 4 (severe); I27.20 Pulmonary hypertension, unspecified; E11.51 Type 2 diabetes mellitus with diabetic peripheral angiopathy without gangrene; I25.10 Atherosclerotic heart disease of native coronary artery without angina pectoris; E11.42 Type 2 diabetes mellitus with diabetic polyneuropathy; E78.5 Hyperlipidemia, unspecified; Z95.5 Presence of coronary angioplasty implant and graft; Z90.49 Acquired absence of other specified parts of digestive tract; Z79.899 Other long term (current) drug therapy; Z79.01 Long term (current) use of anticoagulants; Z79.82 Long term (current) use of aspirin; Z79.84 Long term (current) use of oral hypoglycemic drugs; Z79.02 Long term (current) use of antithrombotics/antiplatelets
CPT/HCPCS: 36415; 71046; 74176; 80053; 85025; 85610; 85730; 86850; 86900; 86901; 99284; A9270

== ENCOUNTER 2024-10-30 15:47 | Inpatient (IN) | payer MEDICARE, SELFPAY ==
--- NOTE | ~2024-10-30 | CT_ITS ---
CLINICAL INDICATION: COMPARISON: . TECHNIQUE: Multiple contiguous axial images of the abdomen and pelvis were performed without the admi nistration of intravenous contrast The dose-length product (DLP) was 946.81 mGy-cm. Automated exposure control and iterative reconstruction technique were employed. FINDINGS/OBSERVATIONS: Visualized lower thorax: Trace bibasilar atelectasis. The heart is enlarged without pericardial effusion. Liver: The liver demonstrates homogeneous attenuation and is not enlarged. Gallbladder and biliary system: The gallbladder is only minimally distended, and otherwise unremarkable. Pancreas: Limited evaluation of the pancreas secondary to the lack of intravenous contrast. Spleen: The spleen demonstrates homogeneous attenuation and is not enlarged. Kidneys: The bilateral kidneys are atrophic, heterogeneous, and calcified. Adrenal glands: Unremarkable. Gastrointestinal tract: Sigmoid diverticulosis without surrounding inflammatory change. Fecal stasis within the distal sigmoid colon and rectum. Soft tissue attenuation eccentric nearly obstructing solid mass within the rectum measuring 3.6 x 4.9 x 7.5 cm (anterior to posterior x medial to lateral x cranial to caudal dimension). Aerated stool duffy rrounds this mass Appendix: The air-filled appendix is of normal caliber (axial series, images 126 through 136) Vasculature: Unremarkable. Lymph nodes: Limited evaluation without intravenous contrast. However, given the amount of intra-abdominal fat, adequate visualization is present. Right iliac oliva n lymph nodes are identified, not pathologically enlarged or morphologically suspicious measuring 7 m m in short axis dimension. No significant retroperitoneal adenopathy is appreciated. Pelvic structures: The bladder is only minimally distended, and otherwise unremarkable. The uterus is anteverted and anteflexed, and is moderately atrophic and contains multiple calcificati ons suggesting prior granulomatous disease. Body wall and musculoskeletal: Small fat-containing umbilical hernia. Age-appropriate degenerative disease within the lower thoracic and lumbosacral spines. IMPRESSION: Nearly obstructing solid soft tissue attenuation mass within the rectum, as detailed above. Scattered nonpathologically enlarged or morphologically suspicious lymph nodes within the right iliac chain. No retroperitoneal lymphadenopathy. No abnormal attenuation within the noncontrast enhanced liver Reviewed, dictated and finalized at location A. IMPRESSION: Nearly obstructing solid soft tissue attenuation mass within the rectum, as det jaimee above. Scattered nonpathologically enlarged or morphologically suspicious lymph nodes within the right iliac chain. No retroperitoneal lymphadenopathy. No abnormal attenuation within the noncontrast enhanced liver
--- OUTSIDE RECORDS SUMMARY | 2024-10-30 15:50 | XMS_ITS | Clinical Summary ---
Author Organization [facility] Address [address] [place] [address] Care Team Providers Care Chief Human Resources Officer Name Role Phone Jens Johnson MD Primary Care Provider [phone] Source Comments [facility],non-owned Affiliates and Associated Physician Practices is amultiple site organization consisting of ambulatory clinics and hospital sitesin [place], [place] and [place]. This disclosure is being madepursuant to the Care Everywhere program and may not contain all information available regarding this patient. Last updated 17.[facility] [employer] Allergies Active Allergy Reactions Criticality Noted Date [...] Diagnosed Date Coronary artery disease invo lving [place] coronary artery of [place] heart 03/23/2017 Social History Tobacco Use Types Packs/Day Years Used Date Smoking Tobacco: Never Assessed Comments Unknown Sex and Gender Information Value Date Recorded Sex Assigned at Not on file Legal Sex Female 8:02 AM RESTAURANT FRONT MANAGER Gender Identity Not on file Sexual Orientation Not on file Last Filed Vital Signs Vital Sign Reading Time Taken Comments Blood Pressure 129/64 03/24/2017 11:59 AM RESTAURANT FRONT MANAGER Pulse 95 03/24/2017 11:59 AM RESTAURANT FRONT MANAGER Temperature 36.5 C (97.7 F) 03/24/2017 11:59 AM RESTAURANT FRONT MANAGER Respiratory Rate 18 03/24/2017 11:59 AM RESTAURANT FRONT MANAGER Oxygen Saturation 100% 03/24/2017 11:59 AM RESTAURANT FRONT MANAGER Inhaled Oxygen Concentration - - Weight 95.3 kg (210 lb) 03/24/2017 6:15 AM RESTAURANT FRONT MANAGER Height 162.6 cm (5' 4) 03/23/2017 8:43 AM RESTAURANT FRONT MANAGER Body Mass Index 36.05 03/23/2017 8:43 AM RESTAURANT FRONT MANAGER Plan of Treatment Health Maintenance Due [...] 11:04 AM 03/24/2017 4:56 PM Care Teams Chief Human Resources Officer Relationship Specialty Start Date End Date Jens Johnson MD [address] [place] [id number] PCP - General Family Medicine 03/23/17
--- OUTSIDE RECORDS SUMMARY | 2024-10-30 15:50 | XMS_ITS | Clinical Summary ---
Author Organization [facility] Address [address] [place] [id number] Phone Care Team Providers Care Health And Safety Advisor Name Role Phone Aly Peterson DO Primary Care Provider [phone] Allergies Active Allergy Reactions Criticality Noted Date [...] ONCE DAILY DOSE INCREASE 2 Active Nystop 251312 UNIT/GM powder Apply topically 2 (two) times [...] 04/29/2017 Coronary arteriosclerosis 04/29/2017 Coronary arteriosclerosis in [place] artery 03/23 Hypertensive disorder 12/31/2016 Resolved Problems [...] on file Legal Sex Female 8:27 AM [facility] Gender Identity Not on [...] Influenza Vaccine (#1) 2024 03/25/2021, 2019 Insurance [facility] Care Teams Health And Safety Advisor Relationship Specialty Start Date End Date Aly Peterson DO [address] [place] [address] PCP - General Internal Medicine 06/17/20
[2024-10-30 15:59] VITALS: BP 146/74; PULSE 94; RESP 20; TEMP 37.1; O2SAT 99
--- NOTE | 2024-10-30 17:13 | ECG_ITS ---
Test Date: 2024-10-30 18:01:24 Measurements Intervals Barre Rate: 103 P: 37 [place]: 155 QRS: 34 QRSD: 75 T: 49 QT: 341 QTc: 448 Interpretive Statements SINUS TACHYCARDIA Electronically Signed On 10-31-2024 17:14:19 CDT by Brooks Martin D.O
[2024-10-30 17:47] LABS: Hematocrit 38.3 % (37.0-47.0); Hemoglobin 11.3 g/dL (12.0-15.0); Immature Granulocyte Percent A 0.5 % (0-0.5); Lymphocytes Absolute Auto 2.24 K/mm3 (0.9-3.2); Mean Corpuscular HGB Conc 29.5 g/dl (32-36); Mean Corpuscular Hemoglobin 25.3 pg (26-34); Mean Corpuscular Volume 85.7 fl (80-100); Nucleated Red Blood Cells Absolute Auto 0.000 K/mm3 (0.0-0.012); Nucleated Red Blood Cells Perc 0.0 % (0.0-0.2); Platelet Count Result 420 k/mm3 (150-375); Red Blood Count 4.47 M/mm3 (4.2-5.4); White Blood Count 12.5 K/mm3 (4.5-10.0)
[2024-10-30 17:58] LABS: INR 1.0; Prothrombin Time 13.6 Seconds (11.1-14.7)
[2024-10-30 17:59] LABS: Alanine Aminotransferase 16 U/L (6-35); Albumin Level 4.2 g/dL (3.5-5.1); Alkaline Phosphatase 104 U/L (38-126); Anion Gap 17 mmol/L (4-12); Aspartate Amino Transferase 36 U/L (14-36); Bilirubin,Total 0.5 mg/dL (0.2-1.3); Blood Urea Nitrogen 50 mg/dL (7-17); Calcium 9.7 mg/dL (8.4-10.2); Carbon Dioxide 15 mmol/L (22-30); Chloride 109 mmol/L (98-107); Estimated CRCL calculation 18 ml/min; Estimated Glomerular Filt Rate 18; Glucose 148 mg/dL (65-110); Lipase 55 U/L (23-300); Partial Thromboplastin Time 28.9 Seconds (22.3-36.8); Potassium 4.0 mmol/L (3.4-5.0); Sodium 141 mmol/L (137-145); Total Protein 8.1 g/dL (6.3-8.2)
[2024-10-30 18:18] LABS: Schistocytes Rare
[2024-10-30 18:19] LABS: Band Neutrophils Percent 0 % (0-6); Hypochromasia 1+
[2024-10-30 18:20] LABS: Anisocytosis 3+
[2024-10-30 20:18] VITALS: BP 147/67; PULSE 87; RESP 15; O2SAT 98
[2024-10-30 20:23] VITALS: RESP 18; O2SAT 99
--- OUTSIDE RECORDS SUMMARY | 2024-10-30 21:18 | XMS_ITS | Clinical Summary ---
Author Organization [facility] Address [address] [place] [id number] Phone Care Team Providers Care Deli Worker Name Role Phone Aly Peterson DO Primary Care Provider [phone] Allergies Active Allergy Reactions Criticality Noted Date [...] ONCE DAILY DOSE INCREASE 2 Active Nystop 902201 UNIT/GM powder Apply topically 2 (two) times [...] 04/29/2017 Coronary arteriosclerosis 04/29/2017 Coronary arteriosclerosis in [place] artery 03/23 Hypertensive disorder 12/31/2016 Resolved Problems [...] on file Legal Sex Female 8:27 AM [facility] [email or web address] Gender Identity Not on file Sexual Orientation [...] Influenza Vaccine (#1) 2024 03/25/2021, 2019 Insurance [facility] Care Teams Deli Worker Relationship Specialty Start Date End Date Aly Peterson DO [address] [place] [address] PCP - General Internal Medicine 06/17/20
--- OUTSIDE RECORDS SUMMARY | 2024-10-30 21:18 | XMS_ITS | Clinical Summary ---
Author Organization [facility] [place] [facility] Address [address] [facility] [place] [address] Care Team Providers Care First Officer And Flight Instructor Name Role Phone Jens Johnson MD Primary Care Provider [phone] Source Comments [facility] [place] [facility],non-owned Affiliates and Associated Physician Practices is amultiple site organization consisting of ambulatory clinics and hospital sitesin [place], [place], [place] and [place]. This disclosure is being madepursuant to the Care Everywhere program and may not contain all information available regarding this patient. 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 Gender Identity Not on file Sexual Orientation Not on file Last Filed Vital Signs Vital Sign Reading Time Taken Comments Blood Pressure 129/64 03/24/2017 11:59 AM ENGAGEMENT EXECUTIVE Pulse 95 03/24/2017 11:59 AM ENGAGEMENT EXECUTIVE Temperature 36.5 C (97.7 F) 03/24/2017 11:59 AM ENGAGEMENT EXECUTIVE Respiratory Rate 18 03/24/2017 11:59 AM ENGAGEMENT EXECUTIVE Oxygen Saturation 100% 03/24/2017 11:59 AM ENGAGEMENT EXECUTIVE Inhaled Oxygen Concentration - - Weight 95.3 kg (210 lb) 03/24/2017 6:15 AM ENGAGEMENT EXECUTIVE Height 162.6 cm (5' 4) 03/23/2017 8:43 AM ENGAGEMENT EXECUTIVE Body Mass Index 36.05 03/23/2017 8:43 AM ENGAGEMENT EXECUTIVE Plan of Treatment Health Maintenance Due Date [...] patient's age to complete this topic Insurance [facility] Address: [facility] [address] [place] [address] MEDICARE Advance Directives * Full Code (Latest Code Status on File) Date Activated Date Inactivated Comments 03/23/2017 11:04 AM 03/24/2017 4:56 PM Care Teams First Officer And Flight Instructor Relationship Specialty Start Date End Date Jens Johnson MD [address] [place] [id number] PCP - General Family Medicine 03/23/17
--- NOTE | 2024-10-30 21:26 | ED.GENADULT ---
HPI - General Adult General Chief complaint: Unspecified Stated complaint: rectal mass Time Seen by Provider: 10/30/24 20:53 History of Present Illness HPI narrative: Patient has had constipation issues for a while and was found to have possible rectal mass, referred to Gastroenterology, went to her appointment today and was sent to the ER for possible disimpaction. Patient reports a lot of discomfort when trying to defecate Related Data Home Medications ?Medication ?Instructions ?Recorded ?Confirmed ?Last Taken ?Type fluticasone propionate 50 2 spray intranasal DAILY PRN nasal 09/03/24 10/17/24 Unknown History mcg/actuation nasal congestion spray,suspension Allergies Allergy/AdvReac Type Severity Reaction Status Date / Time codeine Allergy Intermediate Rash Verified 10/30/24 14:32 Penicillins Allergy Intermediate Rash Verified 10/30/24 14:32 Sulfa (Sulfonamide Allergy Intermediate cheeks get Verified 10/30/24 14:32 Antibiotics) really red Atarax Allergy Unknown deep sleep Unverified 11/05/23 08:30 hydroxyzine (From Atarax) AdvReac Unknown deep sleep Verified 10/30/24 14:32 mulberry Allergy Mild Rash Uncoded 10/30/24 14:32 Review of Systems Review of Systems: All systems reviewed & are unremarkable except as noted in HPI and below PMFSH Past Medical History Medical History (Updated 10/31/24 @ 00:28 by Amaris Lewis MD) Diverticulosis Nausea and vomiting Rectal pain Encounter for immunization Neurocognitive disorder Intertrochanteric fracture of left hip Psychogenic formication Pulmonary HTN Metabolic acidosis NATE (acute kidney injury) Sepsis CHF (congestive heart failure), NYHA class I Anemia Postmenopausal Chronic kidney disease, stage 4 (severe) Coronary artery disease involving [place] heart without angina pectoris Diabetic peripheral neuropathy Hyperlipidemia, unspecified Hypertension, essential Thrombosed external hemorrhoid Type 2 diabetes mellitus with hyperglycemia PAD (peripheral artery disease) Surgical History Surgical History History of hip surgery with femur H/O heart artery stent Hx of tonsillectomy History of cholecystectomy Family History Family History Mother Cerebrovascular accident Diabetes mellitus Family history of cardiovascular disease Father Myocardial infarction Sibling Colon cancer Congestive heart failure Other Hypertension Social History Social History Social History: The patient had 3 children. 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 Her Trey is the durable power assistant prosecuting attorney for healthcare. The patient is a full code. Who is a lifelong nonsmoker. She does not use any alcohol marijuana or illicit drugs. Code status full code Smoking status: Never smoker Second hand tobacco smoke exposure: No Alcohol intake: never Substance use: never Substance use type: does not use Do You Feel Safe in your Home?: Yes Lack of Transportation: No Lack of Food: Never True Current Housing: I Have Housing Concerned About Future Housing: No Difficulty Paying Gas/Electric Bills: No Difficulty Paying for Meds: No Currently Unemployed: No Education: Decline to Answer Difficulty w/ Childcare or Family Care: No Living arrangements: with family Occupation/Education: retired Gender identity (if verbalized by the patient): Female Sexual Orientation (if Verbalized by the Patient): Straight or Heterosexual Spiritual care concerns: No Agree to blood products: Yes Exam Narrative: EXAMINATION OF ORGAN SYSTEMS/BODY AREAS: Constitutional: Vital signs per nursing GENERAL: Appears uncomfortable HEAD: Normal with no signs of head trauma. EYES: EOMI, conjunctiva normal ENT: Hearing grossly intact LUNGS: Nonlabored breathing. HEART: [Regular rate and rhythm] ABD: [Soft], [nontender to palpation] RECTAL: No immediate stool palpable in rectum EXT: Normal range of motion SKIN: [No rashes or lesions.] NEURO: [Alert and oriented x 3. No gross focal sensory or strength deficits.] PSYCH: Normal affect Course Vital Signs Vital signs: Vital Signs Temperature 98.7 F 10/30/24 15:59 Pulse Rate 94 10/30/24 15:59 Respiratory Rate 20 10/30/24 15:59 Blood Pressure 146/74 H 10/30/24 15:59 Pulse Oximetry 99 10/30/24 15:59 Temperature 96.8 F L 10/31/24 00:00 Pulse Rate 83 10/31/24 00:00 Respiratory Rate 18 10/31/24 00:00 Blood Pressure 159/82 H 10/31/24 00:00 Pulse Oximetry 98 10/31/24 00:00 Medical Decision Making MDM Narrative Medical decision making narrative: 1) Differential diagnosis: Mass, constipation 2) Comorbidities: CKD, CAD, diabetes 3) External notes reviewed: GI notes 4) History sources independently obtained from: at bedside 5) Discussion of management with: General surgery, GI, hospitalist 6) Independent interpretation of: EKG - 12-Lead: Performed at 1801. Interpreted by me. [Sinus rhythm]. Rate 103. [Normal] axis. MO-interval [normal]. QRS duration [normal]. QTc [normal]. [No ST segment elevation or depression]. [T-wave normal]. Impression: No EKG evidence of acute ischemia or dysrhythmia. 7) Diagnostic tests or therapies considered but not ordered: 8) Social determinants of health: 9) Shared decision making: Patient presents with constipation issues, on exam she is uncomfortable, on rectal exam I do not feel any large stool for me to disimpact. On labs she does have elevated creatinine however this is baseline for her per my review of EMR. CT unfortunately is showing a rectal mass. Discussed this with General surgery, who recommends admission for GI consult/biopsy. Discussed with GI. Discussed with hospitalist for admission. Discussed with patient and family at bedside Vital Signs Vital Signs: Vital Signs Temperature 98.7 F 10/30/24 15:59 Pulse Rate 94 10/30/24 15:59 Respiratory Rate 20 10/30/24 15:59 Blood Pressure 146/74 H 10/30/24 15:59 Pulse Oximetry 99 10/30/24 15:59 Temperature 96.8 F L 10/31/24 00:00 Pulse Rate 83 10/31/24 00:00 Respiratory Rate 18 10/31/24 00:00 Blood Pressure 159/82 H 10/31/24 00:00 Pulse Oximetry 98 10/31/24 00:00 Lab Data 10/30/24 17:14 10/30/24 17:14 Labs: Lab Results 10/30/24 Range/Units 17:14 WBC 12.5 H (4.5-10.0) K/mm3 RBC 4.47 (4.2-5.4) M/mm3 Hgb 11.3 L (12.0-15.0) g/dL Hct 38.3 (37.0-47.0) % MCV 85.7 (80-100) fl MCH 25.3 L (26-34) pg MCHC 29.5 L (32-36) g/dl RDW 19.2 H (11.5-14.5) % Plt Count 420 H (150-375) k/mm3 MPV 9.5 (7.4-10.4) fl Immature Gran % (Auto) 0.5 (0-0.5) % Neut % (Auto) 73.8 H (45.5-73.1) % Lymph % (Auto) 17.9 L (18.3-44.2) % Piatt % (Auto) 6.3 (2.6-8.5) % Eos % (Auto) 1.3 (0-4.4) % Baso % (Auto) 0.2 (0.2-1.2) % Lymph # (Auto) 2.24 (0.9-3.2) K/mm3 Piatt # (Auto) 0.8 H (0.1-0.6) K/mm3 Eos # (Auto) 0.2 (0-0.3) K/mm3 Baso # (Auto) 0.0 (0.0-0.1) K/mm3 Abs Immat Gran (auto) 0.06 H (0.00-0.031) K/mm3 Absolute Neuts (auto) 9.3 H (1.3-6.7) K/mm3 Absolute Nucleated RBC 0.000 (0.0-0.012) K/mm3 Band Neutrophils % 0 (0-6) % Nucleated RBC % 0.0 (0.0-0.2) % Platelet Estimate Increased (Adequate) Hypochromasia 1+ Anisocytosis 3+ Schistocytes Rare PT 13.6 (11.1-14.7) Seconds INR 1.0 APTT 28.9 (22.3-36.8) Seconds Sodium 141 (137-145) mmol/L Potassium 4.0 (3.4-5.0) mmol/L Chloride 109 H (98-107) mmol/L Carbon Dioxide 15 L (22-30) mmol/L Anion Gap 17 H (4-12) mmol/L BUN 50 H (7-17) mg/dL Creatinine 2.55 H (0.7-1.0) mg/dL Estim Creat Clear Calc 18 ml/min Estimated GFR 18 L (59 - ) Glucose 148 H (65-110) mg/dL Calcium 9.7 (8.4-10.2) mg/dL Total Bilirubin 0.5 (0.2-1.3) mg/dL AST 36 (14-36) U/L ALT 16 (6-35) U/L Alkaline Phosphatase 104 (38-126) U/L Total Protein 8.1 (6.3-8.2) g/dL Albumin 4.2 (3.5-5.1) g/dL Lipase 55 (23-300) U/L Discharge Plan Discharge Clinical Impression: Mass in rectum Patient Disposition: Still a Patient Condition: Stable
[2024-10-30 22:57] LABS: Add Urine Microscopic? YES; Appearance Urine Clear (Clear); Glucose Urine UA Negative (Negative); Leukocyte Esterase Ur 1+ LEU/UL (Negative); Need Manual Microscopic Reviewed; Nitrate Urine Positive (Negative); Specific Grav Ur 1.022 (1.001-1.035)
[2024-10-31] VITALS (7 sets, daily range): BP systolic 153–159; BP diastolic 67–82; PULSE 82–88; RESP 17–19; TEMP 36–36.6; O2SAT 97–100; BMI 33.7
--- NOTE | 2024-10-31 04:52 | P.HP_ITS ---
H&P: HPI History of Present Illness Date/Time: 10/31/24 04:52 Chief Complaint: Constipation Narrative: 79-year-old female sent to [facility] ER from GI office with complaint of constipation. She has been taking Colace. Reports very minimal stools and when she does she has rectal pain. She never had a colonoscopy, no colon issues, no personal cancer. Reports daughter had colon cancer. She has also had a poor appetite and weight loss in the past month but cannot detail how much. Abdomen pelvis CT without contrast performed demonstrates nearly obstructing solid soft tissue attenuation mass within the rectum. Measuring approximately 3.6 x 4.9 x 7.5 cm. General surgery and GI consultations conducted from the ER. Anticipate preliminary workup with GI with biopsy. Review of Systems Review of Systems: All systems reviewed & are unremarkable except as noted in HPI and below (Subjective/HPI) [facility] Past Medical History Medical History (Updated 10/31/24 @ 04:57 by Mamie Ramirez MD) Diverticulosis Nausea and vomiting Rectal pain Encounter for immunization Neurocognitive disorder Intertrochanteric fracture of left hip Psychogenic formication Pulmonary HTN Metabolic acidosis NATE (acute kidney injury) Sepsis CHF (congestive heart failure), NYHA class I Anemia Postmenopausal Chronic kidney disease, stage 4 (severe) Coronary artery disease involving [place] heart without angina pectoris Diabetic peripheral neuropathy Hyperlipidemia, unspecified Hypertension, essential Thrombosed external hemorrhoid Type 2 diabetes mellitus with hyperglycemia PAD (peripheral artery disease) Surgical History Surgical History History of hip surgery with femur H/O heart artery stent Hx of tonsillectomy History of cholecystectomy Family History Family History Mother Cerebrovascular accident Diabetes mellitus Family history of cardiovascular disease Father Myocardial infarction Sibling Colon cancer Congestive heart failure Other Hypertension Social History Social History Social History: The patient had 3 children. 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 Her Trey is the durable power energy attorney for healthcare. The patient is a full code. Who is a lifelong nonsmoker. She does not use any alcohol marijuana or illicit drugs. Code status full code Smoking status: Never smoker Second hand tobacco smoke exposure: No Alcohol intake: never Substance use: never Substance use type: does not use Do You Feel Safe in your Home?: Yes Lack of Transportation: No Lack of Food: Never True Current Housing: I Have Housing Concerned About Future Housing: No Difficulty Paying Gas/Electric Bills: No Difficulty Paying for Meds: No Currently Unemployed: No Education: Decline to Answer Difficulty w/ Childcare or Family Care: No Living arrangements: with family Occupation/Education: retired Gender identity (if verbalized by the patient): Female Sexual Orientation (if Verbalized by the Patient): Straight or Heterosexual Spiritual care concerns: No Agree to blood products: Yes Meds Home Medications and Allergies Home Medications ?Medication ?Instructions ?Recorded ?Confirmed ?Type flash glucose scanning reader #1 ea 11/05/22 10/17/24 Rx (FreeStyle Ronal 2 [place]) acetaminophen 325 mg capsule 650 mg (2 x 325 mg) PO Q6H PRN 01/22/23 10/17/24 Rx (Tylenol) pain #30 caps aspirin 81 mg tablet,delayed 81 mg PO DAILY #30 tabs 09/24/23 10/17/24 Rx release (Adult Aspirin Regimen) atorvastatin 80 mg tablet 80 mg PO DAILY #90 tabs 03/14/24 10/17/24 Rx nystatin 100,000 unit/gram topical See Rx Instructions .Route 07/17/24 10/17/24 Rx cream .COMPLEX fungal infection #30 grams amlodipine 10 mg tablet See Rx Instructions .Route 08/17/24 10/17/24 Rx .COMPLEX #90 tabs fluticasone propionate 50 2 spray intranasal DAILY PRN nasal 09/03/24 10/17/24 History mcg/actuation nasal congestion spray,suspension polyethylene glycol 3350 17 gram 17 g PO BID #14 ea 09/07/24 10/17/24 Rx oral powder packet (Miralax) witch drea 50 % topical pads 1 pad topical PRN PRN Perineal 09/07/24 10/17/24 Rx (Preparation H (Witch Drea)) Discomfort #30 ea glipizide 2.5 mg tablet, extended See Rx Instructions .Route 09/27/24 10/17/24 Rx release 24 hr .COMPLEX #90 tabs flash glucose sensor (FreeStyle #6 ea 09/28/24 10/17/24 Rx Ronal 2 Sensor kit) apixaban 5 mg (74 tabs) tablets in See Rx Instructions PO PER PKG DIR 10/03/24 10/17/24 Rx a dose pack (Eliquis DVT-PE Treat #74 ea 30D Start) carvedilol 6.25 mg tablet (Coreg) 6.25 mg PO Q12HR #60 tabs 10/03/24 10/17/24 Rx ciprofloxacin HCl 500 mg tablet 500 mg PO Q12H #14 tabs 10/15/24 10/17/24 Rx metronidazole 500 mg tablet 500 mg PO Q8H #21 tabs 10/15/24 10/17/24 Rx ondansetron 4 mg disintegrating 4 mg PO Q6H PRN nausea and 10/15/24 10/17/24 Rx tablet vomiting #10 tabs clopidogrel 75 mg tablet See Rx Instructions .Route 10/16/24 10/17/24 Rx .COMPLEX #30 tabs Magic Mouthwash (Dr. Fletcher) 120 5 ml PO QID PRN mouth discomfort 10/17/24 10/17/24 Rx mL suspension #120 mL docusate sodium 100 mg capsule 100 mg PO TID #90 caps 10/17/24 10/17/24 Rx pantoprazole 20 mg tablet,delayed 20 mg PO QAM #90 tabs 10/17/24 10/17/24 Rx release sertraline 25 mg tablet 25 mg PO DAILY anxiety #30 tabs 10/17/24 10/17/24 Rx hydrocortisone 2.5 % topical cream 1 applic RECTAL BID PRN 10/30/24 Rx with perineal applicator hemorrhoids #30 grams Allergies Allergy/AdvReac Type Severity Reaction Status Date / Time codeine Allergy Intermediate Rash Verified 10/31/24 04:12 Penicillins Allergy Intermediate Rash Verified 10/31/24 04:12 Sulfa (Sulfonamide Allergy Intermediate cheeks get Verified 10/31/24 04:12 Antibiotics) really red Atarax Allergy Unknown deep sleep Unverified 11/05/23 08:30 hydroxyzine (From Atarax) AdvReac Unknown deep sleep Verified 10/31/24 04:12 mulberry Allergy Mild Rash Uncoded 10/31/24 04:12 Vital Signs Vital Signs - 24 hr 10/30/24 15:59 10/30/24 20:18 10/30/24 20:23 Temperature 98.7 F Pulse Rate 94 87 Respiratory Rate 20 15 18 Blood Pressure 146/74 H 147/67 H Pulse Oximetry 99 98 99 Oxygen Delivery 10/31/24 00:00 10/31/24 00:35 Temperature 96.8 F L Pulse Rate 83 Respiratory Rate 18 Blood Pressure 159/82 H Pulse Oximetry 98 Oxygen Delivery Room Air Exam Const: General: comfortable and no acute distress HENMT: Mouth: Yes moist mucous membranes Eyes: Pupils: Equal, round and reactive pupils present Neck: Neck: supple Resp: Effort & Inspection: normal respiratory effort Auscultation: clear to auscultation bilaterally Cardio: Rate: regular rate Rhythm: regular rhythm GI: Inspection: non-distended GI Palp: Yes Soft to palpation : General: Yes bladder normal to palpation Neuro: Motor exam (neuro): 5/5 motor strength present throughout Extrem: General: no edema H&P: Results Labs Labs: Short CBC 10/30/24 Range/Units 17:14 WBC 12.5 H (4.5-10.0) K/mm3 Hgb 11.3 L (12.0-15.0) g/dL Hct 38.3 (37.0-47.0) % Plt Count 420 H (150-375) k/mm3 BMP 10/30/24 17:14 Sodium 141 Potassium 4.0 Chloride 109 H Carbon Dioxide 15 L BUN 50 H Creatinine 2.55 H Glucose 148 H Calcium 9.7 Liver Function 10/30/24 Range/Units 17:14 Total Bilirubin 0.5 (0.2-1.3) mg/dL AST 36 (14-36) U/L ALT 16 (6-35) U/L Alkaline Phosphatase 104 (38-126) U/L Albumin 4.2 (3.5-5.1) g/dL Urine 10/30/24 Range/Units 22:34 Urine Color Yellow (Yellow) Urine Appearance Clear (Clear) Urine pH 5.0 (5.0-9.0) Ur Specific [place] 1.022 (1.001-1.035) Urine Protein 1+ H (Negative) mg/dL Urine Glucose (UA) Negative (Negative) mg/dL Assessment and Plan Assessment and plan (1) Mass in rectum: Code(s): K62.89 - Other specified diseases of anus and rectum Status: Acute (2) CKD (chronic kidney disease): Code(s): N18.9 - Chronic kidney disease, unspecified Status: Acute (3) Abnormal urinalysis: Code(s): R82.90 - Unspecified abnormal findings in urine Status: Acute Plan 56-year-old male with history of hyperlipidemia, hypertension who presents to [facility] ER on 10/30/2024 with a complaint of several rashes. For a week now he has been wearing new work boots he developed rash on his bilateral lower legs. They are not painful/itchy/weeping. However on the day of admission he reports having a new itchy rash under his armpits, arms, on the neck. Indoor scratchy throat and difficulty speaking in breathing. He was given Toradol, epinephrine, Decadron, lactated Ringer's 1 L, cefazolin and his scratchy throat went away. He had no more difficulties breathing or speaking. His rash improved greatly. ----- NPO. Normal saline at 100 cc/hour. Patient resting comfortably. GI and duffy rgery to see. SCDs only for now. Patient has no urinary symptoms or suprapubic pain. Follow-up urine culture. Patient wishes to be full code. Accu-Cheks q.6 hours. Hospitalist MIPS Advance Care Plan I have confirmed that the patient's Advanced Care Plan is present, code status is documented, or surrogate decision maker is listed in patient medical record.: Yes Medication Reconciliation I have utilized all available resources to obtain, update and review the patients current medications (includes all prescriptions, OTC, herbals, cannabis, and nutritional supplements).: Yes
[2024-10-31] MEDS: SODIUM CHLORIDE 0.9% IV 1,000 ML 100 ML IV CONT ×2 (05:44→14:45)
[2024-10-31 06:26] LABS: Hematocrit 36.5 % (37.0-47.0); Hemoglobin 11.0 g/dL (12.0-15.0); Immature Granulocyte Percent A 0.5 % (0-0.5); Lymphocytes Absolute Auto 3.14 K/mm3 (0.9-3.2); Mean Corpuscular HGB Conc 30.1 g/dl (32-36); Mean Corpuscular Hemoglobin 25.9 pg (26-34); Mean Corpuscular Volume 86.1 fl (80-100); Nucleated Red Blood Cells Absolute Auto 0.000 K/mm3 (0.0-0.012); Nucleated Red Blood Cells Perc 0.0 % (0.0-0.2); Platelet Count Result 388 k/mm3 (150-375); Red Blood Count 4.24 M/mm3 (4.2-5.4); White Blood Count 10.6 K/mm3 (4.5-10.0)
[2024-10-31 06:47] LABS: Anion Gap 13 mmol/L (4-12); Blood Urea Nitrogen 50 mg/dL (7-17); Calcium 9.2 mg/dL (8.4-10.2); Carbon Dioxide 17 mmol/L (22-30); Chloride 111 mmol/L (98-107); Estimated CRCL calculation 19 ml/min; Estimated Glomerular Filt Rate 19; Glucose 106 mg/dL (65-110); Magnesium 2.4 mg/dL (1.6-2.3); Potassium 3.7 mmol/L (3.4-5.0); Sodium 141 mmol/L (137-145)
--- NOTE | 2024-10-31 07:52 | WPDGICN ---
Assessment and Plan Assessment and plan (1) Mass in rectum: Code(s): K62.89 - Other specified diseases of anus and rectum Status: Acute (2) Rectal pain: Code(s): K62.89 - Other specified diseases of anus and rectum Status: Acute (3) Constipation: Qualifiers: Constipation type: unspecified constipation type Qualified Code(s): K59.00 - Constipation, unspecified Code(s): K59.00 - Constipation, unspecified Status: Acute Plan 1. Rectal mass/rectal pain/constipation/anemia/hematochezia: No prior colonoscopy Hx. Family Hx negative for CRC or IBD. Patient seen in the office yesterday by LISA Marley and due to rectal mass, rectal pain and constipation she was sent to the ER. CT this admission shows rectal mass 3.6x4.9x7.5 cm and scattered pathologically enlarged or morphologically suspicious lymph nodes within right iliac chain. Complains of a 9 lbs weight loss over the past 2 months. She is still having severe rectal pain and constipation. Prior to admission she was going august without a BM and did not feel like she was completely evacuating with BM's. 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 She states that she did have a small semi formed BM yesterday. Anemia may likely be related to rectal mass. topical rectal cream did not help with rectal pain Primary care team to address pain but use narcotics sparingly if possible to avoid making her constipation worse plan for flex sig tomorrow to obtain biopsies Will ordered bowel prep and give small amounts throughout the day as tolerated. If unable to tolerate full prep we will still plan to proceed with scope tomorrow Surgery on case and emergent surgical intervention not recommended at this time given that the patient is still having BM's and passing gas Further recs to follow endoscopy and Bx Thank you very much for allowing me to share in the care of this very nice patient. This report may have been done utilizing a voice recognition system. Attempts have been made to correct errors. However, there may be uncorrected grammatical, spelling, and recognition errors present. GI Consult Note Consult date/time: 10/31/24 07:52 Reason for consult: Rectal mass HPI: Kori Arellano is a 79 year old female with PMSH of diverticulosis, pulmonary HTN, CKD stage 4, CAD, HLD, HTN, diabetes type 2, PAD and CCX. She presented to the ER yesterday at the recommendation of LISA Marley who saw the patient in the office and due to severe rectal pain, rectal mass and possible fecal impaction. GI has been consulted for rectal mass. Patient was seen in [facility] ER 10/15/2024 for a two-week history of abdominal pain. She was diagnosed with probable minimal acute diverticulitis of the splenic flexure region per CT scan and prescribed Cipro and Flagyl. Her WBC were during that visit was 11.3. States symptoms somewhat improved temporally but she returned to the ER on 10/24/2024 for concerns of rectal bleeding and thought it was related to hemorrhoids. Repeat CT scan was found to have findings concerning for a rectal mass with fecal impaction and possible stercoral colitis.The rectum was dilated to 6.8 cm by formed stool, with adjacent wall thickening. Asymmetric wall thickening of the rectum, with proximal shouldering. There was Interval resolution of the previously noted inflammatory change at the splenic flexure seen on prior imaging. Her WBC count increased to 15.1. She was recommended to take Colace daily and use preparation H wipes. She was noted to have a fecal impaction per CT scan during hospitalization on 09/04/2024 for UTI. She was treated with fleets enema with no results and then soap suds enema. Follow up KUB showed resolution of constipation. During todays visit the patient admits to severe rectal pain. She is still having constipation, patient had a small semiformed BM yesterday but did not feel like she completely evacuated, rectal mass likely contributing to this. Admits to moderate to large amount of rectal bleeding with BM's prior to admission. States that she has lost around 9 lbs over the past 2 months and has had a poor appetite. Denies abdominal pain, nausea, vomiting, bloating, odynophagia, dysphagia, reflux, regurgitation, early satiety, diarrhea or melena. Prior to admission patient was on aspirin 81 mg daily but denies any other NSAID or anticoagulant use. She is a nondrinker nonsmoker and denies marijuana use. Family history negative for CRC or IBD. ENDOSCOPY HISTORY: No EGD or colonoscopy history LABS AND STOOL STUDIES: Labs 10/31/2024: Sodium 141, potassium 3.7, BUN 50, creatinine 2.41, GFR 19, calcium 9.2, 2.4 WBC 11, Hgb 11, Hct 37, MCV 86, platelets 388, INR 1.0 Total bilirubin 0.5, AST 36, ALT 16, Alkaline Phos 104, albumin 4.2, lipase 55 Labs October 15: Sodium 140, potassium 4.6, BUN 79, creatinine 2.69 WBC 15, Hgb 10, Hct 34, platelets 360, INR 1.0 Total bilirubin 0.3, AST 23, ALT 22, Alkaline Phos 117, albumin 4.0, lipase 323 Heme positive stool 10/24/2024 IMAGING: CT abd/pelvis w/o contrast 10/30/2024: Visualized lower thorax: Trace bibasilar atelectasis. The heart is enlarged without pericardial effusion. Liver: The liver demonstrates homogeneous attenuation and is not enlarged. Gallbladder and biliary system: The gallbladder is only minimally distended, and otherwise unremarkable. Pancreas: Limited evaluation of the pancreas secondary to the lack of intravenous contrast. Spleen: The spleen demonstrates homogeneous attenuation and is not enlarged. Kidneys: The bilateral kidneys are atrophic, heterogeneous, and calcified. Adrenal glands: Unremarkable. Gastrointestinal tract: Sigmoid diverticulosis without surrounding inflammatory change. Fecal stasis within the distal sigmoid colon and rectum. Soft tissue attenuation eccentric nearly obstructing solid mass within the rectum measuring 3.6 x 4.9 x 7.5 cm (anterior to posterior x medial to lateral x cranial to caudal dimension). Aerated stool surrounds this mass Appendix: The air-filled appendix is of normal caliber (axial series, images 126 through 136) Vasculature: Unremarkable. Lymph nodes: Limited evaluation without intravenous contrast. However, given the amount of intra-abdominal fat, adequate visualization is present. Right iliac chain lymph nodes are identified, not pathologically enlarged or morphologically suspicious measuring 7 mm in short axis dimension. No significant retroperitoneal adenopathy is appreciated. Pelvic structures: The bladder is only minimally distended, and otherwise unremarkable. The uterus is anteverted and anteflexed, and is moderately atrophic and contains multiple calcifications suggesting prior granulomatous disease. Body wall and musculoskeletal: Small fat-containing umbilical hernia. Age-appropriate degenerative disease within the lower thoracic and lumbosacral spines. IMPRESSION: Nearly obstructing solid soft tissue attenuation mass within the rectum, as detailed above. Scattered nonpathologically enlarged or morphologically suspicious lymph nodes within the right iliac chain. No retroperitoneal lymphadenopathy. No abnormal attenuation within the noncontrast enhanced liver Abdomen/Pelvis CT 10/24/2024 Impression: The rectum is dilated to 6.8 cm by formed stool, with adjacent wall thickening. Asymmetric wall thickening of the rectum, with proximal shouldering. Normal appendix. Diverticulosis without diverticulitis. Interval resolution of the previously noted inflammatory change at the splenic flexure. Some fecal impaction, maybe early stercoral colitis. Abdomen/Pelvis CT 10/15/2024 Impression: Probable minimal acute diverticulitis of the splenic flexure region of the colon. No abscess or free air. No obstruction. Small fat-containing umbilical hernia. [facility] Past Medical History Medical History (Updated 10/31/24 @ 10:17 by LANEY Black) Chronic pancreatitis Diverticulosis Nausea and vomiting Rectal pain Encounter for immunization Neurocognitive disorder Intertrochanteric fracture of left hip Psychogenic formication Pulmonary HTN Metabolic acidosis NATE (acute kidney injury) Sepsis CHF (congestive heart failure), NYHA class I Anemia Postmenopausal Chronic kidney disease, stage 4 (severe) Coronary artery disease involving [place] heart without angina pectoris Diabetic peripheral neuropathy Hyperlipidemia, unspecified Hypertension, essential Thrombosed external hemorrhoid Type 2 diabetes mellitus with hyperglycemia PAD (peripheral artery disease) Surgical History Surgical History History of hip surgery with femur H/O heart artery stent X3 Hx of tonsillectomy History of cholecystectomy Laparoscopic cholecystectomy Family History Family History Mother Cerebrovascular accident Diabetes mellitus Family history of cardiovascular disease Father Myocardial infarction Sibling Colon cancer Congestive heart failure Other Hypertension Social History Social History Social History: The patient had 3 children. 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 Her Trey is the durable power workers compensation defense attorney for healthcare. The patient is a full code. Who is a lifelong nonsmoker. She does not use any alcohol marijuana or illicit drugs. Code status full code Smoking status: Never smoker Second hand tobacco smoke exposure: No Alcohol intake: never Substance use: never Substance use type: does not use Do You Feel Safe in your Home?: Yes Lack of Transportation: No Lack of Food: Never True Current Housing: I Have Housing Concerned About Future Housing: No Difficulty Paying Gas/Electric Bills: No Difficulty Paying for Meds: No Currently Unemployed: No Education: Decline to Answer Difficulty w/ Childcare or Family Care: No Living arrangements: with family Occupation/Education: retired Gender identity (if verbalized by the patient): Female Sexual Orientation (if Verbalized by the Patient): Straight or Heterosexual Spiritual care concerns: No Agree to blood products: Yes Meds Home Medications and Allergies Home Medications ?Medication ?Instructions ?Recorded ?Confirmed ?Type flash glucose scanning reader #1 ea 11/05/22 10/31/24 Rx (FreeStyle Ronal 2 [place]) acetaminophen 325 mg capsule 650 mg (2 x 325 mg) PO Q6H PRN 01/22/23 10/31/24 Rx (Tylenol) pain #30 caps aspirin 81 mg tablet,delayed 81 mg PO DAILY #30 tabs 09/24/23 10/31/24 Rx release (Adult Aspirin Regimen) atorvastatin 80 mg tablet 80 mg PO DAILY #90 tabs 03/14/24 10/31/24 Rx amlodipine 10 mg tablet See Rx Instructions .Route 08/17/24 10/31/24 Rx .COMPLEX #90 tabs glipizide 2.5 mg tablet, extended See Rx Instructions .Route 09/27/24 10/31/24 Rx release 24 hr .COMPLEX #90 tabs flash glucose sensor (FreeStyle #6 ea 09/28/24 10/31/24 Rx Ronal 2 Sensor kit) carvedilol 6.25 mg tablet (Coreg) 6.25 mg PO Q12HR #60 tabs 10/03/24 10/31/24 Rx ciprofloxacin HCl 500 mg tablet 500 mg PO Q12H #14 tabs 10/15/24 10/31/24 Rx metronidazole 500 mg tablet 500 mg PO Q8H #21 tabs 10/15/24 10/31/24 Rx ondansetron 4 mg disintegrating 4 mg PO Q6H PRN nausea and 10/15/24 10/31/24 Rx tablet vomiting #10 tabs clopidogrel 75 mg tablet See Rx Instructions .Route 10/16/24 10/31/24 Rx .COMPLEX #30 tabs docusate sodium 100 mg capsule 100 mg PO TID #90 caps 10/17/24 10/31/24 Rx pantoprazole 20 mg tablet,delayed 20 mg PO QAM #90 tabs 10/17/24 10/31/24 Rx release sertraline 25 mg tablet 25 mg PO DAILY anxiety #30 tabs 10/17/24 10/31/24 Rx Allergies Allergy/AdvReac Type Severity Reaction Status Date / Time codeine Allergy Intermediate Rash Verified 10/31/24 04:12 Penicillins Allergy Intermediate Rash Verified 10/31/24 04:12 Sulfa (Sulfonamide Allergy Intermediate cheeks get Verified 10/31/24 04:12 Antibiotics) really red Atarax Allergy Unknown deep sleep Unverified 11/05/23 08:30 hydroxyzine (From Atarax) AdvReac Unknown deep sleep Verified 10/31/24 04:12 mulberry Allergy Mild Rash Uncoded 10/31/24 04:12 Vital Signs Vital Signs - 24 hr 10/30/24 15:59 10/30/24 20:18 10/30/24 20:23 Temperature 98.7 F Pulse Rate 94 87 Respiratory Rate 20 15 18 Blood Pressure 146/74 H 147/67 H Pulse Oximetry 99 98 99 Oxygen Delivery 10/31/24 00:00 10/31/24 00:35 10/31/24 05:55 Temperature 96.8 F L 97.6 F Pulse Rate 83 88 Respiratory Rate 18 18 Blood Pressure 159/82 H 159/67 H Pulse Oximetry 98 97 Oxygen Delivery Room Air Results Labs 10/31/24 05:40 10/31/24 05:40 Labs: Short CBC 10/30/24 10/31/24 Range/Units 17:14 05:40 WBC 12.5 H 10.6 H (4.5-10.0) K/mm3 Hgb 11.3 L 11.0 L (12.0-15.0) g/dL Hct 38.3 36.5 L (37.0-47.0) % Plt Count 420 H 388 H (150-375) k/mm3 BMP 10/30/24 10/31/24 17:14 05:40 Sodium 141 141 Potassium 4.0 3.7 Chloride 109 H 111 H Carbon Dioxide 15 L 17 L BUN 50 H 50 H Creatinine 2.55 H 2.41 H Glucose 148 H 106 Calcium 9.7 9.2 Liver Function 10/30/24 Range/Units 17:14 Total Bilirubin 0.5 (0.2-1.3) mg/dL AST 36 (14-36) U/L ALT 16 (6-35) U/L Alkaline Phosphatase 104 (38-126) U/L Albumin 4.2 (3.5-5.1) g/dL Urine 10/30/24 Range/Units 22:34 Urine Color Yellow (Yellow) Urine Appearance Clear (Clear) Urine pH 5.0 (5.0-9.0) Ur Specific [place] 1.022 (1.001-1.035) Urine Protein 1+ H (Negative) mg/dL Urine Glucose (UA) Negative (Negative) mg/dL
--- NOTE | 2024-10-31 09:06 | ECG_ITS ---
Test Date: 2024-10-30 19:58:08 Measurements Intervals [place] Rate: 98 P: 23 WV: 144 QRS: 28 QRSD: 67 T: 34 QT: 333 QTc: 425 Interpretive Statements SINUS RHYTHM Electronically Signed On 10-31-2024 17:16:40 CDT by Brooks Martin D.O
--- NOTE | 2024-10-31 09:26 | P.CONGS_ITS ---
Assessment and Plan Assessment and plan (1) Mass in rectum: Code(s): K62.89 - Other specified diseases of anus and rectum Status: Acute Assessment and Plan: * Nearly obstructing rectal mass noted on CT that is highly suspicious for malignancy. CEA 3.2. She has never had a colonoscopy. GI is following, will await their recommendations for endoscopic evaluation. There is no evidence of distant metastasis on imaging, although this is a noncontrast CT. The patient is still having some bowel function, but continues to have rectal pain with a significant amount of stool proximal to the rectal mass extending into the distal sigmoid colon. No indication for emergent diverting colostomy as she is still having some bowel function, but may need to re-evaluate if she is showing more signs of a high-grade colonic obstruction. She could be a candidate for stenting, which will be deferred to GI whether this will be considered at this facility or if she would need transferred to a tertiary care facility. Will need eventual Oncology consultation. Will continue to follow along. (2) Fecal impaction: Code(s): K56.41 - Fecal impaction Status: Acute Assessment and Plan: * Likely related to partially obstructing rectal mass. She is still having some bowel function. Unable to tolerate rectal exam d/t pain, but impacted stool is high up proximal to the rectal mass and into the distal sigmoid colon. Awaiting GI recommendations. (3) Incarcerated umbilical hernia: Code(s): K42.0 - Umbilical hernia with obstruction, without gangrene Status: Acute Assessment and Plan: * Chronic umbilical hernia that is fat-containing on CT. This is asymptomatic and partially reducible on exam. No acute issues that require urgent surgical management. (4) Coronary artery disease: Code(s): I25.10 - Atherosclerotic heart disease of poarch coronary artery without angina pectoris Status: Acute (5) PAD (peripheral artery disease): Code(s): I73.9 - Peripheral vascular disease, unspecified Status: Acute (6) Anticoagulated by anticoagulation treatment: Code(s): Z79.01 - director long term care (current) use of anticoagulants Status: Acute Assessment and Plan: * Patient on Plavix and Eliquis, which are currently on hold. (7) Type 2 diabetes mellitus with chronic kidney disease, without long-term current use of insulin: Code(s): E11.22 - Type 2 diabetes mellitus with diabetic chronic kidney disease Status: Acute Plan I have discussed the patient's case and plan of care with Dr. Mcbride. History of Present Illness Consult details Consult date: 10/31/24 Reason for consult: other (Rectal mass) Requesting physician: Mamie Ramirez MD Narrative: This is an 79-year-old woman with a history of CAD/PAD on Plavix, CKD, HTN, type 2 diabetes mellitus, and multiple other medical problems, who we have been asked to see in surgical consultation for rectal mass. She reports having rectal bleeding over the past month with associated generalized weakness and unintentional weight loss of 9 lb in the past month or 2. She has been in the ED 3 times in the past few weeks and was found to have a possible rectal mass with a fecal impaction and possible stair coral colitis on a CT scan. She was referred to GI as an outpatient and was evaluated yesterday in their office. She has recently developed rectal pain and constipation as well as nausea and vomiting. GI directed her to the ED for further evaluation. Repeat CT scan in the ED yesterday showed a nearly obstructing solid mass in the rectum measuring 3.6 x 4.9 x 7.5 cm with stool surrounding this mass and fecal stasis within the distal sigmoid colon and rectum. There was also scattered enlarged or morphologically suspicious lymph nodes within the right iliac chain. No abnormalities within the noncontrast liver. Labs showed a white blood cell count 14613. She was admitted to the hospitalist service. GI has been consulted. She is now seen on the medical floor. She reports having a bowel movement yesterday. She is having rectal pain with bowel movements, and still reports some blood in her stool yesterday. She is passing flatus. She denies any abdominal pain, but complains of persistent rectal pain. No family at the bedside. Patient has never had a colonoscopy. Review of Systems 2 Review of Systems: All systems reviewed & are unremarkable except as noted in HPI and below PMFSH Past Medical History Medical History (Updated 10/31/24 @ 10:17 by LANEY Black) Chronic pancreatitis Diverticulosis Nausea and vomiting Rectal pain Encounter for immunization Neurocognitive disorder Intertrochanteric fracture of left hip Psychogenic formication Pulmonary HTN Metabolic acidosis NATE (acute kidney injury) Sepsis CHF (congestive heart failure), NYHA class I Anemia Postmenopausal Chronic kidney disease, stage 4 (severe) Coronary artery disease involving poarch heart without angina pectoris Diabetic peripheral neuropathy Hyperlipidemia, unspecified Hypertension, essential Thrombosed external hemorrhoid Type 2 diabetes mellitus with hyperglycemia PAD (peripheral artery disease) Surgical History Surgical History History of hip surgery with femur H/O heart artery stent X3 Hx of tonsillectomy History of cholecystectomy Laparoscopic cholecystectomy Family History Family History Mother Cerebrovascular accident Diabetes mellitus Family history of cardiovascular disease Father Myocardial infarction Sibling Colon cancer Congestive heart failure Other Hypertension Social History Social History Social History: The patient had 3 children. 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 The patient is a full code. Who is a lifelong nonsmoker. She does not use any alcohol marijuana or illicit drugs. Code status full code Smoking status: Never smoker Second hand tobacco smoke exposure: No Alcohol intake: never Substance use: never Substance use type: does not use Do You Feel Safe in your Home?: Yes Lack of Transportation: No Lack of Food: Never True Current Housing: I Have Housing Concerned About Future Housing: No Difficulty Paying Gas/Electric Bills: No Difficulty Paying for Meds: No Currently Unemployed: No Education: Decline to Answer Difficulty w/ Childcare or Family Care: No Living arrangements: with family Occupation/Education: retired Gender identity (if verbalized by the patient): Female Sexual Orientation (if Verbalized by the Patient): Straight or Heterosexual Spiritual care concerns: No Agree to blood products: Yes Meds Home Medications and Allergies Home Medications ?Medication ?Instructions ?Recorded ?Confirmed ?Type flash glucose scanning reader #1 ea 11/05/22 10/17/24 Rx (FreeStyle Ronal 2 [place]) acetaminophen 325 mg capsule 650 mg (2 x 325 mg) PO Q6H PRN 01/22/23 10/17/24 Rx (Tylenol) pain #30 caps aspirin 81 mg tablet,delayed 81 mg PO DAILY #30 tabs 09/24/23 10/17/24 Rx release (Adult Aspirin Regimen) atorvastatin 80 mg tablet 80 mg PO DAILY #90 tabs 03/14/24 10/17/24 Rx nystatin 100,000 unit/gram topical See Rx Instructions .Route 07/17/24 10/17/24 Rx cream .COMPLEX fungal infection #30 grams amlodipine 10 mg tablet See Rx Instructions .Route 08/17/24 10/17/24 Rx .COMPLEX #90 tabs fluticasone propionate 50 2 spray intranasal DAILY PRN nasal 09/03/24 10/17/24 History mcg/actuation nasal congestion spray,suspension polyethylene glycol 3350 17 gram 17 g PO BID #14 ea 09/07/24 10/17/24 Rx oral powder packet (Miralax) witch drea 50 % topical pads 1 pad topical PRN PRN Perineal 09/07/24 10/17/24 Rx (Preparation H (Witch Drea)) Discomfort #30 ea glipizide 2.5 mg tablet, extended See Rx Instructions .Route 09/27/24 10/17/24 Rx release 24 hr .COMPLEX #90 tabs flash glucose sensor (FreeStyle #6 ea 09/28/24 10/17/24 Rx Ronal 2 Sensor kit) apixaban 5 mg (74 tabs) tablets in See Rx Instructions PO PER PKG DIR 10/03/24 10/17/24 Rx a dose pack (RPM [employer] DVT-PE Treat #74 ea 30D Start) carvedilol 6.25 mg tablet (Coreg) 6.25 mg PO Q12HR #60 tabs 10/03/24 10/17/24 Rx ciprofloxacin HCl 500 mg tablet 500 mg PO Q12H #14 tabs 10/15/24 10/17/24 Rx metronidazole 500 mg tablet 500 mg PO Q8H #21 tabs 10/15/24 10/17/24 Rx ondansetron 4 mg disintegrating 4 mg PO Q6H PRN nausea and 10/15/24 10/17/24 Rx tablet vomiting #10 tabs clopidogrel 75 mg tablet See Rx Instructions .Route 10/16/24 10/17/24 Rx .COMPLEX #30 tabs Magic Mouthwash (Dr. Fletcher) 120 5 ml PO QID PRN mouth discomfort 10/17/24 10/17/24 Rx mL suspension #120 mL docusate sodium 100 mg capsule 100 mg PO TID #90 caps 10/17/24 10/17/24 Rx pantoprazole 20 mg tablet,delayed 20 mg PO QAM #90 tabs 10/17/24 10/17/24 Rx release sertraline 25 mg tablet 25 mg PO DAILY anxiety #30 tabs 10/17/24 10/17/24 Rx hydrocortisone 2.5 % topical cream 1 applic RECTAL BID PRN 10/30/24 Rx with perineal applicator hemorrhoids #30 grams Allergies Allergy/AdvReac Type Severity Reaction Status Date / Time codeine Allergy Intermediate Rash Verified 10/31/24 04:12 Penicillins Allergy Intermediate Rash Verified 10/31/24 04:12 Sulfa (Sulfonamide Allergy Intermediate cheeks get Verified 10/31/24 04:12 Antibiotics) really red Atarax Allergy Unknown deep sleep Unverified 11/05/23 08:30 hydroxyzine (From Atarax) AdvReac Unknown deep sleep Verified 10/31/24 04:12 mulberry Allergy Mild Rash Uncoded 10/31/24 04:12 Vital Signs Vital Signs - 24 hr 10/30/24 15:59 10/30/24 20:18 10/30/24 20:23 Temperature 98.7 F Pulse Rate 94 87 Respiratory Rate 20 15 18 Blood Pressure 146/74 H 147/67 H Pulse Oximetry 99 98 99 Oxygen Delivery 10/31/24 00:00 10/31/24 00:35 10/31/24 05:55 Temperature 96.8 F L 97.6 F Pulse Rate 83 88 Respiratory Rate 18 18 Blood Pressure 159/82 H 159/67 H Pulse Oximetry 98 97 Oxygen Delivery Room Air Exam 2 Const: General: comfortable and no acute distress Nutritional Appearance: o bese Orientation/consciousness: patient oriented x3 HENMT: Head: normocephalic and atraumatic Ears: hearing grossly normal bilaterally Mouth: Yes moist mucous membranes Eyes: General: appearance normal, both eyes and all related structures P upils: Equal, round and reactive pupils present Neck: Neck: normal visual inspection and full ROM Resp: Effort & Inspection: no respiratory distress Auscultation: clear to auscultation bilaterally Cardio: Rate: regular rate Rhythm: regular rhythm Peripheral pulses: P eripheral pulses 2+ throughout GI: Inspection: Pannus present, obesity, scar (Small port site scars) and visible herniation (4-5 cm umbilical bulge -partially reducible, nontender, no skin changes) GI Palp: Yes Soft to palpation, Yes Tenderness to palpation present (GI) (RLQ, LLQ), No Guarding due to palpation present (GI) and No Rebound tenderness present Auscultation: normal bowel sounds Rectal Exam: other (Deferred due to rectal pain) Skin: General skin exam: normal color Neuro: General: moves all extremities and no focal motor deficits Speech: n ormal speech Motor exam (neuro): 5/5 motor strength present throughout Extrem: General: normal to inspection and no edema Psych: Mental Status: mental status grossly normal Attitude: cooperative Insight: Good insight present (Psych) Judgement: Good judgement present (Psych) Results Labs 10/31/24 05:40 10/31/24 05:40 Labs: Abnormal lab results 10/30/24 10/30/24 10/30/24 Range/Units 17:14 22:34 23:55 WBC 12.5 H (4.5-10.0) K/mm3 Hgb 11.3 L (12.0-15.0) g/dL Hct (37.0-47.0) % MCH 25.3 L (26-34) pg MCHC 29.5 L (32-36) g/dl RDW 19.2 H (11.5-14.5) % Plt Count 420 H (150-375) k/mm3 Neut % (Auto) 73.8 H (45.5-73.1) % Lymph % (Auto) 17.9 L (18.3-44.2) % Wells # (Auto) 0.8 H (0.1-0.6) K/mm3 Abs Immat Gran (auto) 0.06 H (0.00-0.031) K/mm3 Absolute Neuts (auto) 9.3 H (1.3-6.7) K/mm3 Chloride 109 H (98-107) mmol/L Carbon Dioxide 15 L (22-30) mmol/L Anion Gap 17 H (4-12) mmol/L BUN 50 H (7-17) mg/dL Creatinine 2.55 H (0.7-1.0) mg/dL Estimated GFR 18 L (59 - ) Glucose 148 H (65-110) mg/dL POC Capillary Glucose 125 H (65-105) mg/dl Magnesium (1.6-2.3) mg/dL Urine Protein 1+ H (Negative) mg/dL Urine Ketones 1+ H (Negative) mg/dL Urine Nitrate Positive H (Negative) Leukocyte Esterase Rfl 1+ H (Negative) FELTON/UL Urine WBC 11-20 H (0-3) /hpf Urine Bacteria 1+ H /hpf 10/31/24 10/31/24 Range/Units 05:40 07:47 WBC 10.6 H (4.5-10.0) K/mm3 Hgb 11.0 L (12.0-15.0) g/dL Hct 36.5 L (37.0-47.0) % MCH 25.9 L (26-34) pg MCHC 30.1 L (32-36) g/dl RDW 19.5 H (11.5-14.5) % Plt Count 388 H (150-375) k/mm3 Neut % (Auto) (45.5-73.1) % Lymph % (Auto) (18.3-44.2) % [place] # (Auto) 0.9 H (0.1-0.6) K/mm3 Abs Immat Gran (auto) 0.05 H (0.00-0.031) K/mm3 Absolute Neuts (auto) (1.3-6.7) K/mm3 Chloride 111 H (98-107) mmol/L Carbon Dioxide 17 L (22-30) mmol/L Anion Gap 13 H (4-12) mmol/L BUN 50 H (7-17) mg/dL Creatinine 2.41 H (0.7-1.0) mg/dL Estimated GFR 19 L (59 - ) Glucose (65-110) mg/dL POC Capillary Glucose 114 H (65-105) mg/dl Magnesium 2.4 H (1.6-2.3) mg/dL Urine Protein (Negative) mg/dL Urine Ketones (Negative) mg/dL Urine Nitrate (Negative) Leukocyte Esterase Rfl (Negative) FELTON/UL Urine WBC (0-3) /hpf Urine Bacteria /hpf Diabetes panel 10/30/24 10/31/24 Range/Units 17:14 05:40 Sodium 141 141 (137-145) mmol/L Potassium 4.0 3.7 (3.4-5.0) mmol/L Chloride 109 H 111 H (98-107) mmol/L Carbon Dioxide 15 L 17 L (22-30) mmol/L BUN 50 H 50 H (7-17) mg/dL Creatinine 2.55 H 2.41 H (0.7-1.0) mg/dL Glucose 148 H 106 (65-110) mg/dL Calcium 9.7 9.2 (8.4-10.2) mg/dL AST 36 (14-36) U/L ALT 16 (6-35) U/L Alkaline Phosphatase 104 (38-126) U/L Total Protein 8.1 (6.3-8.2) g/dL Albumin 4.2 (3.5-5.1) g/dL Calcium panel 10/30/24 10/31/24 Range/Units 17:14 05:40 Calcium 9.7 9.2 (8.4-10.2) mg/dL Albumin 4.2 (3.5-5.1) g/dL Pituitary panel 10/30/24 10/31/24 Range/Units 17:14 05:40 Sodium 141 141 (137-145) mmol/L Potassium 4.0 3.7 (3.4-5.0) mmol/L Chloride 109 H 111 H (98-107) mmol/L Carbon Dioxide 15 L 17 L (22-30) mmol/L BUN 50 H 50 H (7-17) mg/dL Creatinine 2.55 H 2.41 H (0.7-1.0) mg/dL Glucose 148 H 106 (65-110) mg/dL Calcium 9.7 9.2 (8.4-10.2) mg/dL Adrenal panel 10/30/24 10/31/24 Range/Units 17:14 05:40 Sodium 141 141 (137-145) mmol/L Potassium 4.0 3.7 (3.4-5.0) mmol/L Chloride 109 H 111 H (98-107) mmol/L Carbon Dioxide 15 L 17 L (22-30) mmol/L BUN 50 H 50 H (7-17) mg/dL Creatinine 2.55 H 2.41 H (0.7-1.0) mg/dL Glucose 148 H 106 (65-110) mg/dL Calcium 9.7 9.2 (8.4-10.2) mg/dL Total Bilirubin 0.5 (0.2-1.3) mg/dL AST 36 (14-36) U/L ALT 16 (6-35) U/L Alkaline Phosphatase 104 (38-126) U/L Total Protein 8.1 (6.3-8.2) g/dL Albumin 4.2 (3.5-5.1) g/dL All other labs normal. Imaging Additional studies: ITS Impressions Abdomen/Pelvis CT 10/30/24 18:47 IMPRESSION: Nearly obstructing solid soft tissue attenuation mass within the rectum, as detailed above. Scattered nonpathologically enlarged or morphologically suspicious lymph nodes within the right iliac chain. No retroperitoneal lymphadenopathy. No abnormal attenuation within the noncontrast enhanced liver
[2024-10-31 09:30] LABS: Carcinoembryonic Antigen 3.2 ng/mL (0.0-3.0)
--- NOTE | 2024-10-31 11:40 | P.PNIM_ITS ---
Progress Note: A&P Assessment and Plan (1) Mass in rectum: Code(s): K62.89 - Other specified diseases of anus and rectum Status: Acute Assessment and Plan: Mass-Stool vs Cancer -CEA mildly high, no hx of colonoscopy or colon cancer testing -lactic normal, no perf on scan -GI and sx consulted, await recommendations. NPO until then -Pain control with non-narcotics to avoid worsening constipation (2) CKD (chronic kidney disease): Code(s): N18.9 - Chronic kidney disease, unspecified Status: Acute Assessment and Plan: At baseline -Co2 decreased with mild gap but improving -lactic normal -may need oral bicarb but it is improving on it's own and has been low in the past. Will monitor for now (3) Abnormal urinalysis: Code(s): R82.90 - Unspecified abnormal findings in urine Status: Acute Assessment and Plan: UA looks concerning, pt was on day 5 of 7 of cipro -await urine cx but likely negative since pt was currently on abx -WBC trending down -continue home cipro- needs 2 more days. will add stop date (4) Hypertension, essential: Code(s): I10 - Essential (primary) hypertension Status: Chronic Assessment and Plan: Bp elevated 159/67 -Await home meds verification and will restart accordingly (5) Coronary artery disease: Code(s): I25.10 - Atherosclerotic heart disease of [place] coronary artery without angina pectoris Status: Acute Assessment and Plan: Will hold aspirin as she may need a procedure -No CP -No signs of CHF on exam (6) Type 2 diabetes mellitus with hyperglycemia: Code(s): E11.65 - Type 2 diabetes mellitus with hyperglycemia Status: Chronic Assessment and Plan: Will do SSI and accuchecks while hospitalized -pt NPO Plan Discussed with lucius to update home medications, will reorder SCD for dvt ppx due to possible intervention Time Spent With Patient Time with patient: 25 - 35 minutes Subjective Date/time seen: 10/31/24 11:40 Interval history: Pt is a 79-year-old female here for rectal pain found to have mass. Pt was seen today and is having significant pain and feels as though she needs to have a BM but has not. She also has some dysuria. She has been on cipro + flagyl since her last stay and is on day 5 of those abx. She denies CP, SOB, fevers or chills. She has had the umbilical hernia for many years. No abdominal pain, just rectal pain. Review of Systems Review of Systems: All systems reviewed & are unremarkable except as noted in HPI and below Exam Narrative: General: Well developed well nourished patient in NAD HEENT: normocephalic Neck: supple Neuro: Alert and oriented to herself and place but not time or president CV:RRR Resp:CTA Abd: Obese, non distended. No pain to palpation. Positive bowel sounds. Umbili desi hernia Extremities: No swelling, erythema, or pain to palpation. Objective Data Vital Signs Vital Signs: Vital Signs - 24 hr 10/30/24 15:59 10/30/24 20:18 10/30/24 20:23 Temperature 98.7 F Pulse Rate 94 87 Respiratory Rate 20 15 18 Blood Pressure 146/74 H 147/67 H Pulse Oximetry 99 98 99 Oxygen Delivery 10/31/24 00:00 10/31/24 00:35 10/31/24 05:55 Temperature 96.8 F L 97.6 F Pulse Rate 83 88 Respiratory Rate 18 18 Blood Pressure 159/82 H 159/67 H Pulse Oximetry 98 97 Oxygen Delivery Room Air 10/31/24 08:00 10/31/24 09:42 Temperature Pulse Rate 88 Respiratory Rate 18 Blood Pressure Pulse Oximetry 98 98 Oxygen Delivery Room Air Room Air Intake/Output Intake/Output: Intake & Output 10/28/24 10/29/24 10/30/24 10/31/24 23:59 23:59 23:59 23:59 Output Total 100 Balance -100 Meds/Results Medications: Active Medications Generic Name Dose Route Start Last Admin Trade Name Freq PRN Reason Stop Dose Admin Dextrose 12.5 gm 10/31/24 04:58 Dextrose 50% 25 Gm/50 Ml Syringe IV PUSH PRN PRN Hypoglycemia Protocol Glucose 15 gm 10/31/24 04:58 Glucose Oral Gel 15 Gm Of Glucse In 37.5 Gm Tube PO PRN PRN Hypoglycemia Protocol Sodium Chloride 1,000 mls @ 100 mls/hr 10/31/24 04:50 10/31/24 05:44 Normal Saline Iv IV CONT 100 mls/hr .Q10H JACKY Administration Dextrose 1,000 mls @ 100 mls/hr 10/31/24 04:58 Dextrose 5% 1,000 Ml IVPB PRN PRN Hypoglycemia Protocol Radiology Results: ITS Impressions Abdomen/Pelvis CT 10/30/24 18:47 IMPRESSION: Nearly obstructing solid soft tissue attenuation mass within the rectum, as detailed above. Scattered nonpathologically enlarged or morphologically suspicious lymph nodes within the right iliac chain. No retroperitoneal lymphadenopathy. No abnormal attenuation within the noncontrast enhanced liver Labs Labs: Laboratory Results - last 24 hr 10/30/24 10/30/24 10/30/24 17:14 22:34 23:55 WBC 12.5 H RBC 4.47 Hgb 11.3 L Hct 38.3 MCV 85.7 MCH 25.3 L MCHC 29.5 L RDW 19.2 H Plt Count 420 H MPV 9.5 Immature Gran % (Auto) 0.5 Neut % (Auto) 73.8 H Lymph % (Auto) 17.9 L [place] % (Auto) 6.3 Eos % (Auto) 1.3 Baso % (Auto) 0.2 Lymph # (Auto) 2.24 [place] # (Auto) 0.8 H Eos # (Auto) 0.2 Baso # (Auto) 0.0 Abs Immat Gran (auto) 0.06 H Absolute Neuts (auto) 9.3 H Absolute Nucleated RBC 0.000 Band Neutrophils % 0 Nucleated RBC % 0.0 Platelet Estimate Increased Hypochromasia 1+ Anisocytosis 3+ Schistocytes Rare PT 13.6 INR 1.0 APTT 28.9 Sodium 141 Potassium 4.0 Chloride 109 H Carbon Dioxide 15 L Anion Gap 17 H BUN 50 H Creatinine 2.55 H Estim Creat Clear Calc 18 Estimated GFR 18 L Glucose 148 H POC Capillary Glucose 125 H Lactic Acid Calcium 9.7 Magnesium Total Bilirubin 0.5 AST 36 ALT 16 Alkaline Phosphatase 104 Total Protein 8.1 Albumin 4.2 Lipase 55 Carcinoembryonic Ag Urine Color Yellow Urine Appearance Clear Urine pH 5.0 Ur Specific [place] 1.022 Urine Protein 1+ H Urine Glucose (UA) Negative Urine Ketones 1+ H Ur Blood (Man) Negative Urine Nitrate Positive H Urine Bilirubin Negative Urine Urobilinogen 0.2 Add Ur Microanalysis Reviewed Leukocyte Esterase Rfl 1+ H Urine RBC 0-2 Urine WBC 11-20 H Ur Squamous Epith Cells Occasional Urine Bacteria 1+ H Urine Casts 3-5 10/31/24 10/31/24 10/31/24 05:38 05:40 07:47 WBC 10.6 H RBC 4.24 Hgb 11.0 L Hct 36.5 L MCV 86.1 MCH 25.9 L MCHC 30.1 L RDW 19.5 H Plt Count 388 H MPV 9.6 Immature Gran % (Auto) 0.5 Neut % (Auto) 58.6 Lymph % (Auto) 29.8 [place] % (Auto) 8.4 Eos % (Auto) 2.4 Baso % (Auto) 0.3 Lymph # (Auto) 3.14 [place] # (Auto) 0.9 H Eos # (Auto) 0.3 Baso # (Auto) 0.0 Abs Immat Gran (auto) 0.05 H Absolute Neuts (auto) 6.2 Absolute Nucleated RBC 0.000 Band Neutrophils % Nucleated RBC % 0.0 Platelet Estimate Hypochromasia Anisocytosis Schistocytes PT INR APTT Sodium 141 Potassium 3.7 Chloride 111 H Carbon Dioxide 17 L Anion Gap 13 H BUN 50 H Creatinine 2.41 H Estim Creat Clear Calc 19 Estimated GFR 19 L Glucose 106 POC Capillary Glucose 114 H Lactic Acid Calcium 9.2 Magnesium 2.4 H Total Bilirubin AST ALT Alkaline Phosphatase Total Protein Albumin Lipase Carcinoembryonic Ag 3.2 H Urine Color Urine Appearance Urine pH Ur Specific [place] Urine Protein Urine Glucose (UA) Urine Ketones Ur Blood (Man) Urine Nitrate Urine Bilirubin Urine Urobilinogen Add Ur Microanalysis Leukocyte Esterase Rfl Urine RBC Urine WBC Ur Squamous Epith Cells Urine Bacteria Urine Casts 10/31/24 10/31/24 08:38 11:29 WBC RBC Hgb Hct MCV MCH MCHC RDW Plt Count MPV Immature Gran % (Auto) Neut % (Auto) Lymph % (Auto) [place] % (Auto) Eos % (Auto) Baso % (Auto) Lymph # (Auto) [place] # (Auto) Eos # (Auto) Baso # (Auto) Abs Immat Gran (auto) Absolute Neuts (auto) Absolute Nucleated RBC Band Neutrophils % Nucleated RBC % Platelet Estimate Hypochromasia Anisocytosis Schistocytes PT INR APTT Sodium Potassium Chloride Carbon Dioxide Anion Gap BUN Creatinine Estim Creat Clear Calc Estimated GFR Glucose POC Capillary Glucose 121 H Lactic Acid 0.7 Calcium Magnesium Total Bilirubin AST ALT Alkaline Phosphatase Total Protein Albumin Lipase Carcinoembryonic Ag Urine Color Urine Appearance Urine pH Ur Specific [place] Urine Protein Urine Glucose (UA) Urine Ketones Ur Blood (Man) Urine Nitrate Urine Bilirubin Urine Urobilinogen Add Ur Microanalysis Leukocyte Esterase Rfl Urine RBC Urine WBC Ur Squamous Epith Cells Urine Bacteria Urine Casts Quality VTE Prophylaxis VTE prophylaxis: mechanical ordered
[2024-10-31] MEDS: CIPROFLOXACIN 500 MG TAB PO (13:31)
[2024-10-31] MEDS: ONDANSETRON HCL ODT 4 MG TABLET PO (14:22)
[2024-10-31] MEDS: BISACODYL 5 MG TABLET EC 10 MG PO ×2 (15:30→20:56)
[2024-10-31] MEDS: ACETAMINOPHEN 325 MG TABLET 650 MG PO ×2 (15:30→20:53)
[2024-10-31] MEDS: MAGNESIUM CITRATE 300 ML BTL 180 ML PO (20:56)
[2024-11-01] VITALS (10 sets, daily range): BP systolic 101–164; BP diastolic 52–78; PULSE 62–87; RESP 16–22; TEMP 36.1–36.7; O2SAT 95–100
[2024-11-01] MEDS: SODIUM CHLORIDE 0.9% IV 1,000 ML 100 ML IV CONT ×2 (05:01→15:22)
[2024-11-01] MEDS: ACETAMINOPHEN 325 MG TABLET 650 MG PO ×3 (05:22→11:05)
[2024-11-01 06:47] LABS: Hematocrit 32.0 % (37.0-47.0); Hemoglobin 9.4 g/dL (12.0-15.0); Mean Corpuscular HGB Conc 29.4 g/dl (32-36); Mean Corpuscular Hemoglobin 25.8 pg (26-34); Mean Corpuscular Volume 87.9 fl (80-100); Platelet Count Result 321 k/mm3 (150-375); Red Blood Count 3.64 M/mm3 (4.2-5.4); White Blood Count 8.3 K/mm3 (4.5-10.0)
[2024-11-01 07:09] LABS: Anion Gap 7 mmol/L (4-12); Blood Urea Nitrogen 37 mg/dL (7-17); Calcium 8.8 mg/dL (8.4-10.2); Carbon Dioxide 19 mmol/L (22-30); Chloride 110 mmol/L (98-107); Estimated CRCL calculation 23 ml/min; Estimated Glomerular Filt Rate 24; Glucose 159 mg/dL (65-110); Potassium 3.7 mmol/L (3.4-5.0); Sodium 136 mmol/L (137-145)
--- NOTE | 2024-11-01 08:22 | PC.NURSE ---
To GI Lab per merly.
[2024-11-01] MEDS: SODIUM CHLORIDE 0.9% IV 500 ML 10 ML IV CONT (08:46)
--- NOTE | 2024-11-01 08:46 | P.PNAN_ITS ---
Anes - Initial Pre Proc Eval Procedure: Operation Date: 11/01/24 09:15 Proposed Procedures p Flexible Sigmoidoscopy - Deyvi Loving MD Date/Time: 11/01/24 08:46 Surgeon: Mamie Ramirez MD Pre Op Diagnosis: Rectal mass Patient Data Age: 79 Gender: F Height: 1.68 m Weight: 95 kg Last Vital Signs Temp 97 F L 11/01/24 08:36 Pulse 76 11/01/24 08:36 Resp 22 H 11/01/24 08:36 BP 164/73 H 11/01/24 08:36 Pulse Ox 97 11/01/24 08:36 O2 Del Method Room Air 11/01/24 08:36 Allergies Allergy/AdvReac Type Severity Reaction Status Date / Time codeine Allergy Intermediate Rash Verified 10/31/24 04:12 Penicillins Allergy Intermediate Rash Verified 10/31/24 04:12 Sulfa (Sulfonamide Allergy Intermediate cheeks get Verified 10/31/24 04:12 Antibiotics) really red Atarax Allergy Unknown deep sleep Unverified 11/05/23 08:30 hydroxyzine (From Atarax) AdvReac Unknown deep sleep Verified 10/31/24 04:12 mulberry Allergy Mild Rash Uncoded 10/31/24 04:12 Home Medications ?Medication ?Instructions ?Recorded ?Confirmed ?Type flash glucose scanning reader #1 ea 11/05/22 10/31/24 Rx (FreeStyle Ronal 2 [place]) acetaminophen 325 mg capsule 650 mg (2 x 325 mg) PO Q6H PRN 01/22/23 10/31/24 Rx (Tylenol) pain #30 caps aspirin 81 mg tablet,delayed 81 mg PO DAILY #30 tabs 09/24/23 10/31/24 Rx release (Adult Aspirin Regimen) atorvastatin 80 mg tablet 80 mg PO DAILY #90 tabs 03/14/24 10/31/24 Rx amlodipine 10 mg tablet See Rx Instructions .Route 08/17/24 10/31/24 Rx .COMPLEX #90 tabs glipizide 2.5 mg tablet, extended See Rx Instructions .Route 09/27/24 10/31/24 Rx release 24 hr .COMPLEX #90 tabs flash glucose sensor (FreeStyle #6 ea 09/28/24 10/31/24 Rx Ronal 2 Sensor kit) carvedilol 6.25 mg tablet (Coreg) 6.25 mg PO Q12HR #60 tabs 10/03/24 10/31/24 Rx ciprofloxacin HCl 500 mg tablet 500 mg PO Q12H #14 tabs 10/15/24 10/31/24 Rx metronidazole 500 mg tablet 500 mg PO Q8H #21 tabs 10/15/24 10/31/24 Rx ondansetron 4 mg disintegrating 4 mg PO Q6H PRN nausea and 10/15/24 10/31/24 Rx tablet vomiting #10 tabs clopidogrel 75 mg tablet See Rx Instructions .Route 10/16/24 10/31/24 Rx .COMPLEX #30 tabs docusate sodium 100 mg capsule 100 mg PO TID #90 caps 10/17/24 10/31/24 Rx pantoprazole 20 mg tablet,delayed 20 mg PO QAM #90 tabs 10/17/24 10/31/24 Rx release sertraline 25 mg tablet 25 mg PO DAILY anxiety #30 tabs 10/17/24 10/31/24 Rx Laboratory Tests 10/31/24 10/31/24 10/31/24 05:38 08:38 11:29 WBC RBC Hgb Hct MCV MCH MCHC RDW Plt Count MPV Sodium Potassium Chloride Carbon Dioxide Anion Gap BUN Creatinine Estim Creat Clear Calc Estimated GFR Glucose POC Capillary Glucose 121 H mg/dl (65-105) Lactic Acid 0.7 mmol/L (0.7-2.0) Calcium Carcinoembryonic Ag 3.2 H ng/mL (0.0-3.0) 10/31/24 10/31/24 10/31/24 16:46 18:00 23:11 WBC RBC Hgb Hct MCV MCH MCHC RDW Plt Count MPV Sodium Potassium Chloride Carbon Dioxide Anion Gap BUN Creatinine Estim Creat Clear Calc Estimated GFR Glucose POC Capillary Glucose 131 H mg/dl 131 H mg/dl 145 H mg/dl (65-105) (65-105) (65-105) Lactic Acid Calcium Carcinoembryonic Ag 11/01/24 11/01/24 05:16 06:26 WBC 8.3 K/mm3 (4.5-10.0) RBC 3.64 L M/mm3 (4.2-5.4) Hgb 9.4 L g/dL (12.0-15.0) Hct 32.0 L % (37.0-47.0) MCV 87.9 fl (80-100) MCH 25.8 L pg (26-34) MCHC 29.4 L g/dl (32-36) RDW 19.3 H % (11.5-14.5) Plt Count 321 k/mm3 (150-375) MPV 9.5 fl (7.4-10.4) Sodium 136 L mmol/L (137-145) Potassium 3.7 mmol/L (3.4-5.0) Chloride 110 H mmol/L (98-107) Carbon Dioxide 19 L mmol/L (22-30) Anion Gap 7 mmol/L (4-12) BUN 37 H D mg/dL (7-17) Creatinine 2.02 H mg/dL (0.7-1.0) Estim Creat Clear Calc 23 ml/min Estimated GFR 24 L (59 - ) Glucose 159 H mg/dL (65-110) POC Capillary Glucose 133 H mg/dl (65-105) Lactic Acid Calcium 8.8 mg/dL (8.4-10.2) Carcinoembryonic Ag Patient hx anesthesia problems: none Family hx anesthesia problems: none Results Review: All pre-operative results and documents have been reviewed as part of the pre- operative evaluation. [facility] Past Medical History Medical History (Updated 10/31/24 @ 10:17 by LANEY Black) Chronic pancreatitis Diverticulosis Nausea and vomiting Rectal pain Encounter for immunization Neurocognitive disorder Intertrochanteric fracture of left hip Psychogenic formication Pulmonary HTN Metabolic acidosis NATE (acute kidney injury) Sepsis CHF (congestive heart failure), NYHA class I Anemia Postmenopausal Chronic kidney disease, stage 4 (severe) Coronary artery disease involving [place] heart without angina pectoris Diabetic peripheral neuropathy Hyperlipidemia, unspecified Hypertension, essential Thrombosed external hemorrhoid Type 2 diabetes mellitus with hyperglycemia PAD (peripheral artery disease) Surgical History Surgical History History of hip surgery with femur H/O heart artery stent X3 Hx of tonsillectomy History of cholecystectomy Laparoscopic cholecystectomy Family History Family History Mother Cerebrovascular accident Diabetes mellitus Family history of cardiovascular disease Father Myocardial infarction Sibling Colon cancer Congestive heart failure Other Hypertension Social History Social History Social History: The patient had 3 children. 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 The patient is a full code. Who is a lifelong nonsmoker. She does not use any alcohol marijuana or illicit drugs. Code status full code Smoking status: Never smoker Second hand tobacco smoke exposure: No Alcohol intake: never Substance use: never Substance use type: does not use Do You Feel Safe in your Home?: Yes Lack of Transportation: No Lack of Food: Never True Current Housing: I Have Housing Concerned About Future Housing: No Difficulty Paying Gas/Electric Bills: No Difficulty Paying for Meds: No Currently Unemployed: No Education: Decline to Answer Difficulty w/ Childcare or Family Care: No Living arrangements: with family Occupation/Education: retired Gender identity (if verbalized by the patient): Female Sexual Orientation (if Verbalized by the Patient): Straight or Heterosexual Spiritual care concerns: No Agree to blood products: Yes Anes - Eval Final PreProcedure Day of Procedure 11/01/24 08:46 Patient weight: obese Heart: regular rate and rhythm Lungs: clear to auscultation Airway: Mallampati scale class III Neurological: alert and oriented Last oral intake: >/= 8 hours ASA classification: III Emergent: no Anesthetic plan: proceed Anesthesia type and monitoring: general GIVS and standard monitoring Results Review: All pre-operative results and documents have been reviewed as part of the pre- operative evaluation. Informed Consent: The patient's anesthetic plan and its attendant risks and benefits were discu ssed with the patient/family/POA. Questions were solicited and answers provided to the satisfaction of the patient/family/POA.
--- NOTE | 2024-11-01 09:39 | S_PTH ---
PATIENT: Kori Arellano LOC: [id number] U#:[id number] AGE/SX: 79/F ROOM: 304 RE10/31/[address]: Ashwini Chandra APRN : 1945 BED: 02 DIS: 11/02/2024 SPEC #: [id number] RECD: 11/01/24 10:50 STATUS: ESAU REArjun #: [id number] YVONNE: 11/01/24 09:[address]: Deyvi Loving DEPT: [facility] Surgical RECD BY: Terri Poe ENTERED: 11/01/24 10:50 SP TYPE: Surgical OTHR DR: NAHOMY Farrell MD Pei Chang Chung, MD Jennifer M.J. Clark, APRN Justin B. Hill, MD Tissues: A - Colon Polypectomy Procedures: Hematoxylin and Eosin Stain Gross and Microscopic Level 4
--- NOTE | 2024-11-01 10:28 | PC.NURSE ---
Returned to room from GI Lab per merly.
--- NOTE | 2024-11-01 10:51 | PM.PNGS ---
Progress Note: A&P Assessment and Plan (1) Fecal impaction: Code(s): K56.41 - Fecal impaction Status: Acute Assessment and Plan: endoscopy report reviewed, no rectal mass, disimpacted at this point, ADAT, bowel regimen, no acute surgical issues, call c ?s, issues Subjective Subjective Date/Time Seen: 11/01/24 10:51 Interval history: still c/o rectal pain, +bowel fxn Review of Systems Review of Systems: All systems reviewed & are unremarkable except as noted in HPI and below Exam Const: General: cooperative, no acute distress, tired appearing, uncomfortable and obese Resp: Auscultation: clear to auscultation bilaterally Cardio: Rate: regular rate Rhythm: regular rhythm GI: Inspection: normal to inspection, non-distended and obesity GI Palp: No abdominal tenderness and Yes Soft to palpation Objective Data Vital Signs Vital Signs: Vital Signs - 24 hr 10/31/24 14:00 10/31/24 20:39 10/31/24 21:50 Temperature 36.1 C L 36.6 C Pulse Rate 85 82 Respiratory Rate 17 19 Blood Pressure 154/73 H 153/68 H Pulse Oximetry 100 99 99 Oxygen Delivery Room Air 11/01/24 05:55 11/01/24 08:00 11/01/24 08:36 Temperature 36.2 C L 36.1 C L Pulse Rate 87 76 Respiratory Rate 18 22 H Blood Pressure 148/75 H 164/73 H Pulse Oximetry 99 97 Oxygen Delivery Room Air Room Air 11/01/24 09:51 11/01/24 10:01 11/01/24 10:11 Temperature Pulse Rate 72 67 62 Respiratory Rate 22 H 22 H 22 H Blood Pressure 101/78 122/68 135/52 L Pulse Oximetry 100 100 100 Oxygen Delivery Room Air Room Air Room Air Intake/Output Intake/Output: Intake & Output 10/29/24 10/30/24 10/31/24 11/01/24 23:59 23:59 23:59 23:59 Intake Total 901.7 941.7 Output Total 100 Balance 801.7 941.7 Meds/Results Medications: Active Medications Generic Name Dose Route Start Last Admin Trade Name Freq PRN Reason Stop Dose Admin Acetaminophen 650 mg 10/31/24 11:51 11/01/24 05:22 Acetaminophen 325 Mg Tablet PO 650 mg Q6H PRN Administration pain Amlodipine Besylate 10 mg 10/31/24 11:55 10/31/24 13:31 Amlodipine Besylate 5 Mg Tablet BY MOUTH 10 mg DAILY [facility] Administration Atorvastatin Calcium 80 mg 11/01/24 09:00 Atorvastatin 40 Mg Tablet PO DAILY [facility] Carvedilol 6.25 mg 10/31/24 21:00 10/31/24 20:54 Carvedilol 6.25 Mg Tablet PO 6.25 mg Q12HR JACKY Administration Ciprofloxacin 500 mg 10/31/24 13:00 10/31/24 13:31 Ciprofloxacin 500 Mg Tab PO 11/02/24 13:01 500 mg Q24H JACKY Administration Dextrose 12.5 gm 10/31/24 04:58 Dextrose 50% 25 Gm/50 Ml Syringe IV PUSH PRN PRN Hypoglycemia Protocol Glucose 15 gm 10/31/24 04:58 Glucose Oral Gel 15 Gm Of Glucse In 37.5 Gm Tube PO PRN PRN Hypoglycemia Protocol Sodium Chloride 1,000 mls @ 100 mls/hr 10/31/24 04:50 11/01/24 05:01 Normal Saline Iv IV CONT 100 mls/hr .Q10H JACKY Administration Dextrose 1,000 mls @ 100 mls/hr 10/31/24 04:58 Dextrose 5% 1,000 Ml IVPB PRN PRN Hypoglycemia Protocol Linaclotide 145 mcg 11/02/24 06:30 Linaclotide 145 Mcg Capsule PO DAILY@0630 [facility] Metronidazole 500 mg 10/31/24 14:00 11/01/24 05:22 Metronidazole 500 Mg Tablet PO 11/03/24 06:01 500 mg Q8H JACKY Administration Ondansetron HCl 4 mg 10/31/24 11:53 10/31/24 14:22 Ondansetron Hcl Odt 4 Mg Tablet PO 4 mg Q6H PRN Administration nausea and vomiting Pantoprazole Sodium 20 mg 11/01/24 09:00 Pantoprazole Sod Sesquihydrate 20 Mg Tab PO QAM [facility] Polyethylene Glycol 17 gm 11/02/24 09:00 Polyethylene Glycol 3350 17 Gm Powd.Pack PO QAM [facility] Sertraline HCl 25 mg 11/01/24 09:00 Sertraline Hcl 25 Mg Tablet PO DAILY [facility] Radiology Results: ITS Impressions Abdomen/Pelvis CT 10/30/24 18:47 IMPRESSION: Nearly obstructing solid soft tissue attenuation mass within the rectum, as detailed above. Scattered nonpathologically enlarged or morphologically suspicious lymph nodes within the right iliac chain. No retroperitoneal lymphadenopathy. No abnormal attenuation within the noncontrast enhanced liver Labs Labs: Laboratory Results - last 24 hr 10/31/24 10/31/24 10/31/24 11:29 16:46 18:00 WBC RBC Hgb Hct MCV MCH MCHC RDW Plt Count MPV Sodium Potassium Chloride Carbon Dioxide Anion Gap BUN Creatinine Estim Creat Clear Calc Estimated GFR Glucose POC Capillary Glucose 121 H 131 H 131 H Calcium 10/31/24 11/01/24 11/01/24 23:11 05:16 06:26 WBC 8.3 RBC 3.64 L Hgb 9.4 L Hct 32.0 L MCV 87.9 MCH 25.8 L MCHC 29.4 L RDW 19.3 H Plt Count 321 MPV 9.5 Sodium 136 L Potassium 3.7 Chloride 110 H Carbon Dioxide 19 L Anion Gap 7 BUN 37 H D Creatinine 2.02 H Estim Creat Clear Calc 23 Estimated GFR 24 L Glucose 159 H POC Capillary Glucose 145 H 133 H Calcium 8.8 11/01/24 08:43 WBC RBC Hgb Hct MCV MCH MCHC RDW Plt Count MPV Sodium Potassium Chloride Carbon Dioxide Anion Gap BUN Creatinine Estim Creat Clear Calc Estimated GFR Glucose POC Capillary Glucose 138 H Calcium
[2024-11-01] MEDS: PANTOPRAZOLE SOD SESQUIHYDRATE 20 MG TAB PO (11:03)
[2024-11-01] MEDS: ATORVASTATIN 40 MG TABLET 80 MG PO (11:04)
[2024-11-01] MEDS: SERTRALINE HCL 25 MG TABLET PO (11:04)
[2024-11-01] MEDS: CIPROFLOXACIN 500 MG TAB PO (13:36)
--- NOTE | 2024-11-01 15:08 | P.PNIM_ITS ---
Progress Note: A&P Assessment and Plan (1) Mass in rectum: Code(s): K62.89 - Other specified diseases of anus and rectum Status: Acute Assessment and Plan: Colonoscopy showed large amount of impacted stool no rectal Mass * still having rectal pain added lidocaine gel for rectal area * Bowel regiment with Miralax and high fiber GI to add Linzess * Surgery signed off * Encourage ambulation and out oral hydration Mass-Stool vs Cancer -CEA mildly high, no hx of colonoscopy or colon cancer testing -lactic normal, no perf on scan -GI and sx consulted, await recommendations. NPO until then -Pain control with non-narcotics to avoid worsening constipation (2) CKD (chronic kidney disease): Code(s): N18.9 - Chronic kidney disease, unspecified Status: Acute Assessment and Plan: At baseline -Co2 decreased with mild gap but improving -lactic normal -may need oral bicarb but it is improving on it's own and has been low in the past. Will monitor for now (3) Abnormal urinalysis: Code(s): R82.90 - Unspecified abnormal findings in urine Status: Acute Assessment and Plan: UA looks concerning, pt was on day 5 of 7 of cipro -await urine cx but likely negative since pt was currently on abx -WBC trending down -continue home cipro- needs 2 more days. will add stop date (4) Hypertension, essential: Code(s): I10 - Essential (primary) hypertension Status: Chronic Assessment and Plan: -continued amlodipine, Coreg (5) Coronary artery disease: Code(s): I25.10 - Atherosclerotic heart disease of [place] coronary artery without angina pectoris Status: Acute Assessment and Plan: * Continued ASA and statin (6) Type 2 diabetes mellitus with hyperglycemia: Code(s): E11.65 - Type 2 diabetes mellitus with hyperglycemia Status: Chronic Assessment and Plan: * Low-dose SSI * Accu-Cheks a.c. HS * Hypoglycemic protocol * Hold glimepiride Plan Code status: Full code per patient DVT prophylaxis: SCDs Stress ulcer prophylaxis: NA PT/OT notes: Patient refusing physical and occupational therapy Disposition: Patient went for colonoscopy to rule out rectal mass found to have large fecal impaction still having some moderate pain to rectal area will advance diet as tolerated monitor overnight with high-fiber diet and bowel regimen plan for discharge to home tomorrow. Time Spent With Patient Time with patient: 15 - 25 minutes Subjective Date/time seen: 11/01/24 15:08 Interval history: Pt is a 79-year-old female here for rectal pain found to have mass. Pt was seen today and is having significant pain and feels as though she needs to have a BM but has not. She also has some dysuria. She has been on cipro + flagyl since her last stay and is on day 5 of those abx. 11/01/2024: Patient seen post colonoscopy No rectal mass was found but she did have a significant amount of impacted stool which was mainly removed by GI physician. Patient still reporting moderate rectal pain. Patient was able to tolerate small meal will continue with bowel regiment monitor overnight plan for discharge home tomorrow patient at this time refused any physical or occupational therapy but did states she would consider home health. Review of Systems Review of Systems: All systems reviewed & are unremarkable except as noted in HPI and below Exam Narrative: General: Well developed well nourished patient in NAD HEENT: normocephalic Neck: supple Neuro: Alert and oriented to herself and place but not time or president CV:RRR Resp:CTA Abd: Obese, non distended. No pain to palpation. Positive bowel sounds. Umbilical hernia Extremities: No swelling, erythema, or pain to palpation. Objective Data Vital Signs Vital Signs: Vital Signs - 24 hr 10/31/24 20:39 10/31/24 21:50 11/01/24 05:55 Temperature 97.9 F 97.2 F L Pulse Rate 82 87 Respiratory Rate 19 18 Blood Pressure 153/68 H 148/75 H Pulse Oximetry 99 99 99 Oxygen Delivery Room Air 11/01/24 08:00 11/01/24 08:36 11/01/24 09:51 Temperature 97 F L Pulse Rate 76 72 Respiratory Rate 22 H 22 H Blood Pressure 164/73 H 101/78 Pulse Oximetry 97 100 Oxygen Delivery Room Air Room Air Room Air 11/01/24 10:01 11/01/24 10:11 11/01/24 11:04 Temperature Pulse Rate 67 62 62 Respiratory Rate 22 H 22 H Blood Pressure 122/68 135/52 L Pulse Oximetry 100 100 Oxygen Delivery Room Air Room Air Intake/Output Intake/Output: Intake & Output 10/29/24 10/30/24 10/31/24 11/01/24 23:59 23:59 23:59 23:59 Intake Total 901.7 1181.7 Output Total 100 Balance 801.7 1181.7 Meds/Results Medications: Active Medications Generic Name Dose Route Start Last Admin Trade Name Cas PRN Reason Stop Dose Admin Acetaminophen 650 mg 10/31/24 11:51 11/01/24 11:05 Acetaminophen 325 Mg Tablet PO 650 mg Q6H PRN Administration pain Amlodipine Besylate 10 mg 10/31/24 11:55 11/01/24 11:03 Amlodipine Besylate 5 Mg Tablet BY MOUTH 10 mg DAILY JACKY Administration Atorvastatin Calcium 80 mg 11/01/24 09:00 11/01/24 11:04 Atorvastatin 40 Mg Tablet PO 80 mg DAILY JACKY Administration Carvedilol 6.25 mg 10/31/24 21:00 11/01/24 11:04 Carvedilol 6.25 Mg Tablet PO 6.25 mg Q12HR JACKY Administration Ciprofloxacin 500 mg 10/31/24 13:00 11/01/24 13:36 Ciprofloxacin 500 Mg Tab PO 11/02/24 13:01 500 mg Q24H JACKY Administration Dextrose 12.5 gm 10/31/24 04:58 Dextrose 50% 25 Gm/50 Ml Syringe IV PUSH PRN PRN Hypoglycemia Protocol Glucose 15 gm 10/31/24 04:58 Glucose Oral Gel 15 Gm Of Glucse In 37.5 Gm Tube PO PRN PRN Hypoglycemia Protocol Sodium Chloride 1,000 mls @ 100 mls/hr 10/31/24 04:50 11/01/24 12:15 Normal Saline Iv IV CONT Not Given .Q10H JACKY Dextrose 1,000 mls @ 100 mls/hr 10/31/24 04:58 Dextrose 5% 1,000 Ml IVPB PRN PRN Hypoglycemia Protocol Linaclotide 145 mcg 11/02/24 06:30 Linaclotide 145 Mcg Capsule PO DAILY@0630 JACKY Metronidazole 500 mg 10/31/24 14:00 11/01/24 13:36 Metronidazole 500 Mg Tablet PO 11/03/24 06:01 500 mg Q8H JACKY Administration Ondansetron HCl 4 mg 10/31/24 11:53 10/31/24 14:22 Ondansetron Hcl Odt 4 Mg Tablet PO 4 mg Q6H PRN Administration nausea and vomiting Pantoprazole Sodium 20 mg 11/01/24 09:00 11/01/24 11:03 Pantoprazole Sod Sesquihydrate 20 Mg Tab PO 20 mg QAM JACKY Administration Polyethylene Glycol 17 gm 11/02/24 09:00 Polyethylene Glycol 3350 17 Gm Powd.Pack PO QAM JACKY Sertraline HCl 25 mg 11/01/24 09:00 11/01/24 11:04 Sertraline Hcl 25 Mg Tablet PO 25 mg DAILY JACKY Administration Radiology Results: ITS Impressions Abdomen/Pelvis CT 10/30/24 18:47 IMPRESSION: Nearly obstructing solid soft tissue attenuation mass within the rectum, as detailed above. Scattered nonpathologically enlarged or morphologically suspicious lymph nodes within the right iliac chain. No retroperitoneal lymphadenopathy. No abnormal attenuation within the noncontrast enhanced liver Labs Labs: Laboratory Results - last 24 hr 10/31/24 10/31/24 10/31/24 16:46 18:00 23:11 WBC RBC Hgb Hct MCV MCH MCHC RDW Plt Count MPV Sodium Potassium Chloride Carbon Dioxide Anion Gap BUN Creatinine Estim Creat Clear Calc Estimated GFR Glucose POC Capillary Glucose 131 H 131 H 145 H Calcium 11/01/24 11/01/24 11/01/24 05:16 06:26 08:43 WBC 8.3 RBC 3.64 L Hgb 9.4 L Hct 32.0 L MCV 87.9 MCH 25.8 L MCHC 29.4 L RDW 19.3 H Plt Count 321 MPV 9.5 Sodium 136 L Potassium 3.7 Chloride 110 H Carbon Dioxide 19 L Anion Gap 7 BUN 37 H D Creatinine 2.02 H Estim Creat Clear Calc 23 Estimated GFR 24 L Glucose 159 H POC Capillary Glucose 133 H 138 H Calcium 8.8 11/01/24 12:06 WBC RBC Hgb Hct MCV MCH MCHC RDW Plt Count MPV Sodium Potassium Chloride Carbon Dioxide Anion Gap BUN Creatinine Estim Creat Clear Calc Estimated GFR Glucose POC Capillary Glucose 135 H Calcium Quality VTE Prophylaxis VTE prophylaxis: mechanical ordered -Patient's previous records reviewed on admission -ER notes reviewed in detail on admission -discussed all findings and current treatment plan with patient/Family/POA -Consultations reviewed for recommendations -Patient's disposition for safe discharge discussed with rehabilitation caseworker Dictation performed by ALEJANDROSPARQAmanda [employer] direct speech recognition software, therefore drafter engineering variants and typographical errors may occur. Hospitalist MIPS Advance Care Plan I have confirmed that the patient's Advanced Care Plan is present, code status is documented, or surrogate decision maker is listed in patient medical record.: Yes Medication Reconciliation I have utilized all available resources to obtain, update and review the patients current medications (includes all prescriptions, OTC, herbals, cannabis, and nutritional supplements).: Yes The patient is not eligible for med reconciliation; the patient is in a emergent medical situation where delaying treatment would jeopardize the patients health.: No
[2024-11-01] MEDS: LIDOCAINE 2% GEL UROJET 10 ML PKG MUCOUS MEM (15:38)
[2024-11-02] MEDS: SODIUM CHLORIDE 0.9% IV 1,000 ML 100 ML IV CONT ×2 (02:32→12:17)
[2024-11-02 05:19] VITALS: BP 134/56; PULSE 69; RESP 17; TEMP 36.7; O2SAT 100
[2024-11-02] MEDS: LINACLOTIDE 145 MCG CAPSULE PO (06:26)
[2024-11-02] MEDS: ATORVASTATIN 40 MG TABLET 80 MG PO (09:04)
[2024-11-02] MEDS: SERTRALINE HCL 25 MG TABLET PO (09:04)
[2024-11-02 09:05] VITALS: PULSE 69
[2024-11-02] MEDS: ASPIRIN 81 MG ENTERIC TABLET PO (09:05)
[2024-11-02] MEDS: DOCUSATE SODIUM 100 MG CAPSULE PO ×2 (09:05→12:20)
[2024-11-02] MEDS: CLOPIDOGREL BISULFATE 75 MG TABLET PO (09:05)
[2024-11-02] MEDS: PANTOPRAZOLE SOD SESQUIHYDRATE 20 MG TAB PO (09:05)
--- NOTE | 2024-11-02 10:55 | P.DS_ITS ---
DS: Admitting Diagnosis Discharge Date 11/02/2024 Admitting Diagnosis Rectal mass Vs fecal impaction DS: Discharge Diagnosis Discharge Diagnosis (1) Mass in rectum: Code(s): K62.89 - Other specified diseases of anus and rectum Status: Acute (2) CKD (chronic kidney disease): Code(s): N18.9 - Chronic kidney disease, unspecified Status: Acute (3) Abnormal urinalysis: Code(s): R82.90 - Unspecified abnormal findings in urine Status: Acute (4) Hypertension, essential: Code(s): I10 - Essential (primary) hypertension Status: Chronic (5) Coronary artery disease: Code(s): I25.10 - Atherosclerotic heart disease of [place] coronary artery without angina pectoris Status: Acute (6) Type 2 diabetes mellitus with hyperglycemia: Code(s): E11.65 - Type 2 diabetes mellitus with hyperglycemia Status: Chronic DS: Summary Hospital Course Reason for hospitalization: Rectal mass vs fecal impaction Hospital Course: Admission: Patient was a 79-year-old female sent to [facility] ER from GI office with complaint of constipation. She has been taking Colace. Reports very minimal stools and when she does she has rectal pain. She never had a colonoscopy, no colon issues, no personal cancer. Reports daughter had colon cancer. She has also had a poor appetite and weight loss in the past month but cannot detail how much. Abdomen pelvis CT without contrast performed demonstrates nearly obstructing solid soft tissue attenuation mass within the rectum. Measuring approximately 3.6 x 4.9 x 7.5 cm. General surgery and GI consultations conducted from the ER. Anticipate preliminary workup with GI with biopsy. Hospital Course: Patient was admitted to the medical unit with consult to GI and general surgery was placed NPO with IV fluids and taken for colonoscopy following day. colonoscopy revealed a single 6 mm polyp, no active bleeding but a large amount of impacted stool in the rectum that had been manually removed after removal they were found to have no mass or lesion in the rectum just a few small size internal hemorrhoids. patient tolerated procedure well and was sent back to the medical unit postop patient still had complaints of moderate rectal pain and mild nausea with eating. patient was started on high-fiber diet and bowel regimen of MiraLax and to continue her Colace. Patient refused physical or occupational therapy but did accept home health services to come in and work with her. I encouraged HER2 increase hydration and activity to improve bowel activity. Patient was discharged home with . Status at Discharge Functional status at discharge: uses cane/walker Overall status at discharge: patient is back to baseline Time Spent with Patient Time attestation: Total time spent providing and/or coordinating discharge services: Time spent: Greater than 30 minutes Exam Narrative: General: Well developed well nourished patient in NAD HEENT: normocephalic Neck: supple Neuro: Alert and oriented to herself and place but not time or president CV:RRR Resp:CTA Abd: Obese, non distended. No pain to palpation. Positive bowel sounds. Umbilical hernia Extremities: No swelling, erythema, or pain to palpation. DS: Data Data Completed and Pending Completed studies during hospitalization: Pending at discharge 11/01/24 09:39 Surgical [PTH] Routine Labs on day of discharge: Labs from last 24 hours 11/02/24 11/02/24 11/01/24 07:47 05:17 23:42 POC Capillary Glucose 168 H 160 H 168 H 11/01/24 11/01/24 11/01/24 20:01 16:47 12:06 POC Capillary Glucose 164 H 117 H 135 H Preliminary micro results at discharge 10/30/24 22:34 - Preliminary Urine Clean Catch Gram negative bacilli isolated Imaging Radiologist's impression: Radiology Results: ITS Impressions Abdomen/Pelvis CT 10/30/24 18:47 IMPRESSION: Nearly obstructing solid soft tissue attenuation mass within the rectum, as detailed above. Scattered nonpathologically enlarged or morphologically suspicious lymph nodes within the right iliac chain. No retroperitoneal lymphadenopathy. No abnormal attenuation within the noncontrast enhanced liver Discharge Plan Discharge Attending physician on discharge: Carmelo Gant Consulting providers: Raquel Hubbard; Ashwini Chandra; Deyvi Pickering Discharging Clinician: Ashwini Chandra Anticipated Discharge Date/Time: 11/02/24 10:50 Patient Disposition: Home with Home Health Service Activity: august shower Diet: as tolerated Discharge Instructions: 1). Per Care Coordination Patient has been accepted to have [facility] for RN, PT, OT [phone] [facility] will call to arrange a time to see you in your house after discharge. 2). Fecal Impaction * continue with the bowel regiment I have prescribed Miralax and Colace * Encourage hydration and increase activity to keep bowels active * Recommend High fiber diet How can you care for yourself at home? ? Keep track of any new symptoms or changes in your symptoms. ? Rest until you feel better. ? Be safe with medicines. Take your medicines exactly as prescribed. Call your doctor if you think you are having a problem with your medicine. ? Do not drive after taking a prescription pain medicine. ? Ensure to follow-up with primary care physician as indicated and provide updated medication list provided to you at discharge. When should you call for help? Call 911 anytime you think you may need emergency care. For example, call if: ? You passed out (lost consciousness). Call your doctor now or seek immediate medical care if: ? You have new symptoms like fever, difficulty breathing, Chest pain, vomiting, or rash. ? You have new or different pain. ? You are confused and are having trouble thinking clearly. ? Your symptoms are getting worse. Watch closely for changes in your health, and be sure to contact your doctor if: ? You do not get better as expected. Patient Instructions: Antibiotic Form, Fecal Impaction (GEN) Patient Language: [place]an Stand Alone Forms: General Discharge Information Follow-up/Referrals: Martir Esquivel MD [Primary Care Provider] - 2 Weeks Discharge Medications: New polyethylene glycol 3350 [Miralax] 17 gram Powder In Packet 17 g PO QAM Qty: 30 0RF Linzess 145 mcg Capsule 145 mcg PO DAILY@0630 Qty: 30 0RF Continued (DME) FreeStyle Ronal 2 [place] Misc See Rx Instructions .Route Qty: 1 0RF Rx Instructions: As directed docusate sodium 100 mg capsule 100 mg PO TID Qty: 90 0RF pantoprazole 20 mg tablet,delayed release (DR/EC) 20 mg PO QAM Qty: 90 1RF sertraline 25 mg tablet 25 mg PO DAILY Qty: 30 0RF (DME) FreeStyle Ronal 2 Sensor Kit See Rx Instructions .ROUTE .MEDSUPPLY Qty: 6 3RF Rx Instructions: As directed aspirin [Adult Aspirin Regimen] 81 mg tablet,delayed release (DR/EC) 81 mg PO DAILY Qty: 30 1RF ciprofloxacin HCl 500 mg tablet 500 mg PO Q12H Qty: 14 0RF metronidazole 500 mg tablet 500 mg PO Q8H Qty: 21 0RF ondansetron 4 mg tablet,disintegrating 4 mg PO Q6H PRN (Reason: nausea and vomiting) Qty: 10 0RF atorvastatin 80 mg tablet 80 mg PO DAILY Qty: 90 1RF amlodipine 10 mg tablet See Rx Instructions .ROUTE .COMPLEX Qty: 90 1RF Dose Instruction: Take 1 tablet by mouth once daily Rx Instructions: Take 1 tablet by mouth once daily glipizide 2.5 mg tablet extended release 24hr See Rx Instructions .ROUTE .COMPLEX Qty: 90 0RF Dose Instruction: Take 1 tablet by mouth once daily Rx Instructions: Take 1 tablet by mouth once daily carvedilol [Coreg] 6.25 mg tablet 6.25 mg PO Q12HR Qty: 60 1RF clopidogrel 75 mg tablet See Rx Instructions .ROUTE .COMPLEX Qty: 30 1RF Dose Instruction: TAKE 1 TABLET BY MOUTH IN THE MORNING Rx Instructions: TAKE 1 TABLET BY MOUTH IN THE MORNING acetaminophen [Tylenol] 325 mg capsule 650 mg PO Q6H PRN (Reason: pain) Qty: 30 0RF Date of admission: 10/31/24 08:31 Primary Care Provider: Martir Esquivel Admitting Provider: Mamie Ramirez Attending physician on admission: Mamie Ramirez Condition: Stable Quality VTE Prophylaxis VTE prophylaxis: mechanical ordered -Patient's previous records reviewed on admission -ER notes reviewed in detail on admission -discussed all findings and current treatment plan with patient/Family/POA -Consultations reviewed for recommendations -Patient's disposition for safe discharge discussed with showcase trimmer Dictation performed by [employer] direct speech recognition software, therefore non profit director variants and typographical errors may occur. Hospitalist MIPS Heart Failure (Exclusion) Patient has history of Heart Transplant or Left Ventricular Assistive Device?: No IF YES, STOP HERE Heart Failure (Qualifier) Patient has current or prior documentation of LVEF less than or equal to 40%, or mod/servere depressed LVSF?: No IF NO, STOP HERE
[2024-11-02] MEDS: CIPROFLOXACIN 500 MG TAB PO (12:20)
--- NOTE | 2024-11-02 13:35 | PC.NURSE ---
Discharge packet reviewed with patient and spouse. Verbalized understanding of information discussed.
--- NOTE | 2024-11-02 14:04 | WPDANESPN ---
Anes - Prog Note Post-Op Date/Time: 11/02/24 14:04 Cardiovascular status: normal Respiratory status: normal Airway patency: baseline Mental status: baseline Post-Op hydration status: normal Vital Signs: Last Vital Signs Temp 98.0 F 11/02/24 05:19 Pulse 69 11/02/24 09:05 Resp 17 11/02/24 05:19 BP 134/56 L 11/02/24 05:19 Pulse Ox 100 11/02/24 05:19 O2 Del Method Room Air 11/02/24 08:00 FiO2 21 11/01/24 21:50 Pain Score (VAS): 0/10 I/O: Intake & Output 11/01/24 11/02/24 11/02/24 23:59 07:59 15:59 Intake Total 790 1000 1240 Output Total 200 Balance 929 591 1107 Laboratory Tests 11/01/24 06:26 11/01/24 06:26 11/01/24 11/01/24 11/01/24 16:47 20:01 23:42 POC Capillary Glucose 117 H 164 H 168 H 11/02/24 11/02/24 11/02/24 05:17 07:47 11:50 POC Capillary Glucose 160 H 168 H 157 H Microbiology 10/30/24 22:34 Urine Clean Catch - Preliminary Gram negative bacilli isolated Post-procedural complaints: none Patient Feedback: Patient satisfied with anesthetic care.
== END 2024-11-02 14:05 | disposition home health service (06) | DRG 389 ==
LOC: ANHED 21:19 → ANH3MEDSUR 22:46
PROVIDERS: Internal Medicine Gastroenterology; Physician Assistant; Registered Nurse; Admitting Provider General Practice; Emergency Provider Emergency Medicine; PCP Family Medicine; Visit Provider Nurse Practitioner Family
PROC: 0DJD8ZZ Inspection of Lower Intestinal Tract, Via Natural or Artificial Opening Endoscopic (ICD-10-PCS; CPT 45330; principal; 2024-11-01 09:15)
DX: K56.41 Fecal impaction (principal); I13.0 Hypertensive heart and chronic kidney disease with heart failure and stage 1 through stage 4 chronic kidney disease, or unspecified chronic kidney disease; N18.4 Chronic kidney disease, stage 4 (severe); K64.8 Other hemorrhoids; K63.5 Polyp of colon; R93.3 Abnormal findings on diagnostic imaging of other parts of digestive tract; K57.30 Diverticulosis of large intestine without perforation or abscess without bleeding; I50.9 Heart failure, unspecified; E11.22 Type 2 diabetes mellitus with diabetic chronic kidney disease; E11.65 Type 2 diabetes mellitus with hyperglycemia; I25.10 Atherosclerotic heart disease of native coronary artery without angina pectoris; I73.9 Peripheral vascular disease, unspecified; E78.5 Hyperlipidemia, unspecified; E11.42 Type 2 diabetes mellitus with diabetic polyneuropathy; D64.9 Anemia, unspecified; Z95.5 Presence of coronary angioplasty implant and graft; Z90.49 Acquired absence of other specified parts of digestive tract; Z79.02 Long term (current) use of antithrombotics/antiplatelets; E66.9 Obesity, unspecified; Z68.33 Body mass index [BMI] 33.0-33.9, adult
CPT/HCPCS: 36415; 74176; 80048; 80053; 81001; 82378; 82948; 83605; 83690; 83735; 85025; 85027; 85610; 85730; 87086; 88305; 93005; 99285; A9270; G0378; J2003; J2704; J7030; J7040

== ENCOUNTER 2024-12-17 11:40 | Inpatient (IN) | payer MEDICARE, SELFPAY ==
[2024-12-17] VITALS (34 sets, daily range): BP systolic 139–165; BP diastolic 57–73; PULSE 76–93; RESP 15–29; TEMP 36.6; O2SAT 96–100; BMI 34.6
--- NOTE | ~2024-12-17 | XR_ITS ---
EXAMINATION: XR chest 2V, 12/17/2024 12:20 CDT HISTORY: chest pain COMPARISON: No comparisons available. Technique: 2 views obtained. Findings: The lungs are clear, no effusion. No pneumothorax. Heart is normal size. Mediastinal and hilar contours are within normal limits. Bony thorax no acute abnormality. Impression: No acute cardiopulmonary abnormality. Reviewed, dictated and finalized at location A. Impression: No acute cardiopulmonary abnormality.
--- NOTE | ~2024-12-17 | US_ITS ---
EXAMINATION: US venous doppler LE , 12/18/2024 7:20 CDT HISTORY: asymmetric swelling of the LEs Comparison: None Technique: Parker-scale and color Doppler images were attempted of the lower saphenofemoral junction, common femoral vein,superficial femoral vein, proximal deep femoral vein, proximal deep femoral vein, popliteal vein and posterior tibial veins. Findings: Deep Venous System:Normal flow, augmentation and compressibility. No echogenic thrombus identified. The contralateral saphenofemoral junction appears unremarkable. Superficial Venous SystemNo superficial thrombophlebitis. Soft tissues: Soft tissues are unremarkable. Impression: Negative for DVT. Reviewed, dictated and finalized at location A. Impression: Negative for DVT.
--- NOTE | ~2024-12-17 | CT_ITS ---
EXAMINATION: CT abdomen pelvis wo con, 12/17/2024 13:20 CDT HISTORY: umbilical hernia reduced, nausea COMPARISON: No comparisons available. TECHNIQUE: CT scan of the abdomen and pelvis was performed without IV contrast. One or more of the following dose reduction techniques were used: automated exposure control, adjustment of the mA and/or kV according to patient size, use of iterative reconstruction technique. Unless otherwise stated, incidental findings do not require dedicated follow up imaging FINDINGS: CT abdomen: LUNG BASES: Lung bases chronic changes. LIVER: Unremarkable, liver contours intact, no lesions. SPLEEN: Unremarkable, no splenomegaly. KIDNEYS: Right Kidney: Unremarkable. No calculi. No hydronephrosis. Left Kidney: Atrophy of the left kidney with simple and probable hemorrhagic renal cysts the largest 2 x 2 cm but incompletely characterized, outpatient renal ultrasound recommended. ADRENAL GLANDS: Thickened adrenal glands bilaterally. PANCREAS: Unremarkable. GALLBLADDER/BILIARY: Postcholecystectomy. STOMACH AND ESOPHAGUS: Visualized stomach and esophagus within normal limits. BOWEL/MESENTERY: There is thickening of the rectum with minimal pericolonic stranding. The remaining large bowel demonstrates moderate diverticulosis, no colitis or diverticulitis. Appendix normal. Mesentery normal. No dilated small bowel loops. ADENOPATHY/RETROPERITONEUM: No lymphadenopathy. AORTA/VASCULATURE: Normal caliber aorta. FREE FLUID OR FREE AIR: None. CT pelvis: SOLID ORGANS/REPRODUCTIVE: Uterus is atrophic. No adnexal mass. BLADDER: Thickening of the bladder wall. OSSEOUS STRUCTURES: Fixation left femur. Moderate degenerative changes lumbar spine. No sclerotic or lytic lesions. OVERLYING SOFT TISSUES: Diastases of the abdominal wall at the umbilicus. Hdgjp-eh-ynarbzsz fat-containing bilateral inguinal hernia. IMPRESSION: 1. Probable cystitis. 2. Mild probable proctitis. No perforation or abscess. 3. Incidental findings above Reviewed, dictated and finalized at location A.
--- NOTE | 2024-12-17 11:48 | ECG_ITS ---
Test Date: 2024-12-17 11:45:34 Measurements Intervals [place] Rate: 84 P: 39 CT: 173 QRS: 31 QRSD: 59 T: 40 QT: 349 QTc: 415 Interpretive Statements SINUS RHYTHM LOW QRS VOLTAGE IN PRECORDIAL LEADS [QRS DEFLECTION < 1.0 mV IN CHEST LEADS] ABNORMAL ECG Compared to ECG 10/30/2024 19:58:08 Low QRS voltage now present Electronically Signed On 12-17-2024 12:34:22 CDT by Andrae Jarquin M.D.
[2024-12-17 12:02] LABS: Hematocrit 32.8 % (37.0-47.0); Hemoglobin 9.5 g/dL (12.0-15.0); Immature Granulocyte Percent A 0.6 % (0-0.5); Lymphocytes Absolute Auto 2.45 K/mm3 (0.9-3.2); Mean Corpuscular HGB Conc 29.0 g/dl (32-36); Mean Corpuscular Hemoglobin 25.6 pg (26-34); Mean Corpuscular Volume 88.4 fl (80-100); Nucleated Red Blood Cells Absolute Auto 0.000 K/mm3 (0.0-0.012); Nucleated Red Blood Cells Perc 0.0 % (0.0-0.2); Platelet Count Result 256 k/mm3 (150-375); Red Blood Count 3.71 M/mm3 (4.2-5.4); White Blood Count 7.0 K/mm3 (4.5-10.0)
[2024-12-17 12:29] LABS: Alanine Aminotransferase 20 U/L (6-35); Albumin Level 3.6 g/dL (3.5-5.1); Alkaline Phosphatase 137 U/L (38-126); Anion Gap 8 mmol/L (4-12); Aspartate Amino Transferase 30 U/L (14-36); Bilirubin,Total 0.4 mg/dL (0.2-1.3); Blood Urea Nitrogen 41 mg/dL (7-17); Calcium 8.9 mg/dL (8.4-10.2); Carbon Dioxide 23 mmol/L (22-30); Chloride 106 mmol/L (98-107); Estimated CRCL calculation 19 ml/min; Estimated Glomerular Filt Rate 22; Glucose 276 mg/dL (65-110); Lipase 105 U/L (23-300); Potassium 5.3 mmol/L (3.4-5.0); Sodium 137 mmol/L (137-145); Total Protein 6.9 g/dL (6.3-8.2); Troponin I < 0.012 ng/mL (0.000-0.034)
[2024-12-17 12:37] LABS: Anisocytosis 1+; Hypochromasia 1+; Ovalocytes 1+; Schistocytes None Seen
[2024-12-17] MEDS: SODIUM CHLORIDE 0.9% IV 1,000 ML 999 ML IV CONT (12:47)
[2024-12-17 13:18] LABS: Add Urine Microscopic? YES; Appearance Urine Clear (Clear); Glucose Urine UA 2+ mg/dL (Negative); Leukocyte Esterase Ur Negative LEU/UL (Negative); Nitrate Urine Negative (Negative); Non Pathogenic Casts 0-2; Specific Grav Ur 1.013 (1.001-1.035)
--- NOTE | 2024-12-17 14:25 | ED_ITS ---
HPI - Chest Pain General Chief Complaint: Chest Pain Stated Complaint: CP Time Seen by Provider: 12/17/24 12:04 History of Present Illness HPI narrative: Patient is an 79-year-old female who presents ER with chest pain. She had tightness and heaviness left chest yesterday that lasted for most the day but then went away in the evening. It returned today and is associated with nausea. It is also making her arms feel heavy. No abdominal pain. No fevers or chills or sweats. She is having normal bowel movements. Has history of coronary disease. Related Data Home Medications ?Medication ?Instructions ?Recorded ?Confirmed ?Last Taken ?Type docusate sodium 100 mg capsule 100 mg PO BID 12/17/24 12/17/24 Unknown History Allergies Allergy/AdvReac Type Severity Reaction Status Date / Time codeine Allergy Intermediate Rash Verified 12/17/24 13:59 Penicillins Allergy Intermediate Rash Verified 12/17/24 13:59 Sulfa (Sulfonamide Allergy Intermediate cheeks get Verified 12/17/24 13:59 Antibiotics) really red hydroxyzine (From Atarax) AdvReac Unknown deep sleep Verified 12/17/24 13:59 mulberry Allergy Mild Rash Uncoded 12/15/24 10:24 Review of Systems 2 Review of Systems: All systems reviewed & are unremarkable except as noted in HPI and below Constitutional: Constitutional: Reports no additional constitutional complaints Cardiovascular: Cardiovascular: Reports no additional cardiovascular complaints Respiratory: Respiratory: Reports no additional respiratory complaints Gastrointestinal: Gastrointestinal: Reports no additional gastrointestinal complaints PMFSH Past Medical History Medical History Chronic pancreatitis Diverticulosis Nausea and vomiting Rectal pain Encounter for immunization Neurocognitive disorder Intertrochanteric fracture of left hip Psychogenic formication Pulmonary HTN Metabolic acidosis NATE (acute kidney injury) Sepsis CHF (congestive heart failure), NYHA class I Anemia Postmenopausal Chronic kidney disease, stage 4 (severe) Coronary artery disease involving [place] heart without angina pectoris Diabetic peripheral neuropathy Hyperlipidemia, unspecified Hypertension, essential Thrombosed external hemorrhoid Type 2 diabetes mellitus with hyperglycemia PAD (peripheral artery disease) Surgical History Surgical History History of hip surgery with femur H/O heart artery stent X3 Hx of tonsillectomy History of cholecystectomy Laparoscopic cholecystectomy Family History Family History (Updated 12/17/24 @ 18:28 by Joann Gallegos RN) Mother Family history of cardiovascular disease Diabetes mellitus Cerebrovascular accident Father Myocardial infarction Sibling Congestive heart failure Colon cancer Other Hypertension Social History Social History Social History: The patient had 3 children. 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 Power civil rights attorney for healthcare. Her Trey is the durable power civil rights attorney for healthcare. The patient is a full code. Who is a lifelong nonsmoker. She does not use any alcohol marijuana or illicit drugs. Code status full code Smoking status: Never smoker Second hand tobacco smoke exposure: No Alcohol intake: never Substance use: never Substance use type: does not use Do You Feel Safe in your Home?: Yes Lack of Transportation: No Lack of Food: Never True Current Housing: I Have Housing Concerned About Future Housing: No Difficulty Paying Gas/Electric Bills: No Difficulty Paying for Meds: No Currently Unemployed: No Education: High School Diploma/GED Difficulty w/ Childcare or Family Care: No Living arrangements: with family Occupation/Education: retired Gender identity (if verbalized by the patient): Female Sexual Orientation (if Verbalized by the Patient): Straight or Heterosexual Spiritual care concerns: No Agree to blood products: Yes Exam 2 Narrative: GENERAL: Well-appearing, well-nourished, and in no acute distress. HEAD: Normocephalic, atraumatic. ENT: Mucous membranes moist. NECK: Supple. CHEST: Clear to auscultation. No respiratory distress. HEART: Regular rate and rhythm. Normal peripheral pulses. ABDOMEN: Soft, nontender, nondistended, reducible umbilical hernia. EXTREMITIES: Normal range of motion. No edema. SKIN: Warm, dry, no rash. NEURO: Alert and oriented to self and place. PSYCH: Normal mood and affect. Course Course Emergency Course: Admit to hospitalist service for observation due to recurrent chest pain and history of [place]. Heart score 4. Patient also may be developing some dementia as is notice that she is become more confused and does not no answers to simple questions like who is the president or weight years it. Vital Signs Vital signs: Vital Signs Temperature 97.8 F 12/17/24 11:40 Pulse Rate 93 12/17/24 11:40 Respiratory Rate 16 09/14/25 11:40 Blood Pressure 157/72 H 12/17/24 11:40 Pulse Oximetry 96 12/17/24 11:40 Oxygen Delivery Room Air 12/17/24 11:40 Temperature 97.8 F 12/17/24 11:40 Pulse Rate 87 12/17/24 17:30 Respiratory Rate 22 H 12/17/24 15:30 Blood Pressure 165/66 H 12/17/24 17:16 Pulse Oximetry 97 12/17/24 17:30 Oxygen Delivery Room Air 12/17/24 11:40 MDM - Chest Pain Lab Data 12/17/24 11:57 12/17/24 11:57 Labs: Lab Results 12/17/24 12/17/24 Range/Units 11:57 13:09 WBC 7.0 (4.5-10.0) K/mm3 RBC 3.71 L (4.2-5.4) M/mm3 Hgb 9.5 L (12.0-15.0) g/dL Hct 32.8 L (37.0-47.0) % MCV 88.4 (80-100) fl MCH 25.6 L (26-34) pg MCHC 29.0 L (32-36) g/dl RDW 18.4 H (11.5-14.5) % Plt Count 256 (150-375) k/mm3 MPV 9.7 (7.4-10.4) fl Immature Gran % (Auto) 0.6 H (0-0.5) % Neut % (Auto) 51.4 (45.5-73.1) % Lymph % (Auto) 35.1 (18.3-44.2) % [place] % (Auto) 8.3 (2.6-8.5) % Eos % (Auto) 3.9 (0-4.4) % Baso % (Auto) 0.7 (0.2-1.2) % Lymph # (Auto) 2.45 (0.9-3.2) K/mm3 [place] # (Auto) 0.6 (0.1-0.6) K/mm3 Eos # (Auto) 0.3 (0-0.3) K/mm3 Baso # (Auto) 0.1 (0.0-0.1) K/mm3 Abs Immat Gran (auto) 0.04 H (0.00-0.031) K/mm3 Absolute Neuts (auto) 3.6 (1.3-6.7) K/mm3 Absolute Nucleated RBC 0.000 (0.0-0.012) K/mm3 Band Neutrophils % Not Reportable Nucleated RBC % 0.0 (0.0-0.2) % Platelet Estimate Adequate (Adequate) Hypochromasia 1+ Anisocytosis 1+ Ovalocytes 1+ Schistocytes None seen PT Cancelled INR Cancelled APTT Cancelled Sodium 137 (137-145) mmol/L Potassium 5.3 H (3.4-5.0) mmol/L Chloride 106 (98-107) mmol/L Carbon Dioxide 23 (22-30) mmol/L Anion Gap 8 (4-12) mmol/L BUN 41 H (7-17) mg/dL Creatinine 2.14 H (0.7-1.0) mg/dL Estim Creat Clear Calc 19 ml/min Estimated GFR 22 L (59 - ) Glucose 276 H (65-110) mg/dL Calcium 8.9 (8.4-10.2) mg/dL Total Bilirubin 0.4 (0.2-1.3) mg/dL AST 30 (14-36) U/L ALT 20 (6-35) U/L Alkaline Phosphatase 137 H (38-126) U/L Troponin I < 0.012 (0.000-0.034) ng/mL Total Protein 6.9 (6.3-8.2) g/dL Albumin 3.6 (3.5-5.1) g/dL Lipase 105 (23-300) U/L Urine Color Yellow (Yellow) Urine Appearance Clear (Clear) Urine pH 6.5 (5.0-9.0) Ur Specific [place] 1.013 (1.001-1.035) Urine Protein 1+ H (Negative) mg/dL Urine Glucose (UA) 2+ H (Negative) mg/dL Urine Ketones Negative (Negative) mg/dL Ur Blood (Man) Negative (Negative) Urine Nitrate Negative (Negative) Urine Bilirubin Negative (Negative) Urine Urobilinogen 0.2 (<2.0) mg/dL Leukocyte Esterase Rfl Negative (Negative) [place]/UL Urine RBC 0-2 (0-2) /hpf Urine WBC 0-5 (0-3) /hpf Ur Squamous Epith Cells None seen (Few) /hpf Urine Bacteria None seen /hpf Urine Casts 0-2 Discharge Plan Discharge Clinical Impression: Memory impairment Chest pain Qualifiers: Chest pain type: unspecified Qualified Code(s): R07.9 - Chest pain, unspecified Patient Disposition: Still a Patient Condition: Stable Quality HEART score for chest pain patients History: slightly suspicious ECG: normal Age: > or = to 65 years Risk factors: > or = to 3 risk factors of atherosclerotic disease Troponin: < or = to 1x normal limit Heart score: 4
--- NOTE | 2024-12-17 15:03 | PC.NURSE ---
Pt refused to use bedpan and urinates in the bed.
--- NOTE | 2024-12-17 15:17 | P.HP_ITS ---
H&P: HPI History of Present Illness Date/Time: 12/17/24 15:17 Chief Complaint: Chest Pain Narrative: 79 y/o F with PMH of chronic pancreatitis, pulmonary hypertension, CHF, anemia, CKD stage 4, coronary artery disease, PAD, hyperlipidemia, diabetes, and hypertension presents here with chest pain. The patient presents here from home via EMS on 12/17 for further evaluation of chest pain. She reports onset of left-sided chest pain yesterday around morning while she was at rest (watching TV). She described the chest pain as dull, radiating today down both her arms, constant, and no aggravating factors. She did take Tylenol yesterday which did partially help her pain. Pain then resolved later in the evening without intervention. However the pain returned today while she was rest. However, today it was accompanied by nausea, diaphoresis, shortness of breath, and a heaviness in her bilateral upper extremities (but no pain like yesterday) which she has never experienced before. She denies associated dizziness or palpitations. She has a cardiac history significant for congestive heart failure, coronary artery disease, and pulmonary hypertension. Patient had an NSTEMI in September of 2023, treated at [facility], with a peak troponin of 10.7. At that time cardiac catheterization was not pursued as she has a history of CKD stage 4 after risks and benefits were discussed with the patient and she was medically managed. Patient sees Delfino HAGAN for her cardiac care, she is unsure where he practices. She is on Plavix, not on anticoagulation. Initial VS at presentation: 97.8? F, HR 93, [place] [address]224/72, and 96% on RA. ED workup showed: No leukocytosis, hemoglobin 9.5 (9.4 on 11/01/2024), potassium 5.3, creatinine 2.14 and GFR 22 (2.02 and GFR 24 on 11/01/2024), glucose 276, initial troponin negative, lipase negative, and UA showed 1+ protein and 2+ glucose otherwise unremarkable. CXR showed no acute cardiopulmonary abnormality. CT of the abdomen/pelvis showed probable cystitis, mild probable proctitis with no perforation or abscess, and incidental findings (see full report). Review of Systems Review of Systems: All systems reviewed & are unremarkable except as noted in HPI and below [facility] Past Medical History Medical History Chronic pancreatitis Diverticulosis Nausea and vomiting Rectal pain Encounter for immunization Neurocognitive disorder Intertrochanteric fracture of left hip Psychogenic formication Pulmonary HTN Metabolic acidosis NATE (acute kidney injury) Sepsis CHF (congestive heart failure), NYHA class I Anemia Postmenopausal Chronic kidney disease, stage 4 (severe) Coronary artery disease involving jackson heart without angina pectoris Diabetic peripheral neuropathy Hyperlipidemia, unspecified Hypertension, essential Thrombosed external hemorrhoid Type 2 diabetes mellitus with hyperglycemia PAD (peripheral artery disease) Surgical History Surgical History History of hip surgery with femur H/O heart artery stent X3 Hx of tonsillectomy History of cholecystectomy Laparoscopic cholecystectomy Family History Family History Mother Family history of cardiovascular disease Diabetes mellitus Cerebrovascular accident Father Myocardial infarction Sibling Congestive heart failure Colon cancer Other Hypertension Social History Social History Social History: The patient had 3 children. 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 Power commonwealth attorney for healthcare. Her Trey is the durable power commonwealth attorney for healthcare. The patient is a full code. Who is a lifelong nonsmoker. She does not use any alcohol marijuana or illicit drugs. Code status full code Smoking status: Never smoker Second hand tobacco smoke exposure: No Alcohol intake: never Substance use: never Substance use type: does not use Do You Feel Safe in your Home?: Yes Lack of Transportation: No Lack of Food: Never True Current Housing: I Have Housing Concerned About Future Housing: No Difficulty Paying Gas/Electric Bills: No Difficulty Paying for Meds: No Currently Unemployed: No Education: High School Diploma/GED Difficulty w/ Childcare or Family Care: No Living arrangements: with family Occupation/Education: retired Gender identity (if verbalized by the patient): Female Sexual Orientation (if Verbalized by the Patient): Straight or Heterosexual Spiritual care concerns: No Agree to blood products: Yes Meds Home Medications and Allergies Home Medications ?Medication ?Instructions ?Recorded ?Confirmed ?Type flash glucose scanning reader #1 ea 11/05/22 12/17/24 Rx (Memopal Ronal 2 [place]) acetaminophen 325 mg capsule 650 mg (2 x 325 mg) PO Q6 H PRN 01/22/23 12/17/24 Rx (Tylenol) pain #30 caps aspirin 81 mg tablet,delayed 81 mg PO DAILY #30 tabs 0 09/24/23 12/17/24 Rx release (Adult Aspirin Regimen) amlodipine 10 mg tablet See Rx Instructions .Route 0 08/17/24 12/17/24 Rx .COMPLEX #90 tabs glipizide 2.5 mg tablet, extended See Rx Instructions .Route 09/27/24 12/17/24 Rx release 24 hr .COMPLEX #90 tabs flash glucose sensor (FreeStyle #6 ea 09/28/24 5 Rx Ronal 2 Sensor kit) ondansetron 4 mg disintegrating 4 mg PO Q6H PRN nausea and 10/15/24 12/17/24 Rx tablet vomiting #10 tabs clopidogrel 75 mg tablet See Rx Instructions .Route 0 10/16/24 12/17/24 Rx .COMPLEX #30 tabs pantoprazole 20 mg tablet,delayed 20 mg PO QAM #90 tab s 10/17/24 12/17/24 Rx release sertraline 25 mg tablet 25 mg PO DAILY anxiety #30 t abs 10/17/24 12/17/24 Rx linaclotide 145 mcg capsule 145 mcg PO DAILY@0630 #30 caps 11/02/24 12/17/24 Rx (Linzess) polyethylene glycol 3350 17 gram 17 g PO QAM #30 ea 12/17/24 Rx oral powder packet (Miralax) atorvastatin 80 mg tablet See Rx Instructions .Route 0 11/17/24 12/17/24 Rx .COMPLEX #90 tabs carvedilol 6.25 mg tablet See Rx Instructions .Route 0 12/11/24 12/17/24 Rx .COMPLEX #60 tabs hydrocortisone 2.5 % topical cream 1 applic RECTAL BID PRN 12/15/24 12/17/24 Rx with perineal applicator hemorrhoids #30 grams triamcinolone acetonide 0.1 % 1 applic topical TID vag inal 12/15/24 12/17/24 Rx topical cream irritation #30 grams docusate sodium 100 mg capsule 100 mg PO BID 12/17/24 12/17/24 History Allergies Allergy/AdvReac Type Severity Reaction Status Date / Time codeine Allergy Intermediate Rash Verified 12/17/24 13:59 Penicillins Allergy Intermediate Rash Verified 12/17/24 13:59 Sulfa (Sulfonamide Allergy Intermediate cheeks get Verified 12/17/24 13:59 Antibiotics) really red hydroxyzine (From Atarax) AdvReac Unknown deep sleep Verified 12/17/24 13:59 mulberry Allergy Mild Rash Uncoded 12/15/24 10:24 Vital Signs Vital Signs - 24 hr 12/17/24 11:40 12/17/24 12:07 12/17/24 12:39 Temperature 97.8 F Pulse Rate 93 83 85 Respiratory Rate 16 20 19 Blood Pressure 157/72 H Pulse Oximetry 96 98 Oxygen Delivery Room Air 12/17/24 12:45 12/17/24 13:00 12/17/24 13:05 Temperature Pulse Rate 88 81 82 Respiratory Rate 17 24 H 15 Blood Pressure 159/73 H Pulse Oximetry 100 Oxygen Delivery 12/17/24 13:12 12/17/24 13:25 12/17/24 13:30 Temperature Pulse Rate 90 79 Respiratory Rate 23 H 21 H Blood Pressure 159/73 H Pulse Oximetry 97 96 Oxygen Delivery 12/17/24 13:45 12/17/24 14:00 12/17/24 14:14 Temperature Pulse Rate 78 82 78 Respiratory Rate 20 19 29 H Blood Pressure 152/65 H Pulse Oximetry 100 97 Oxygen Delivery 12/17/24 14:15 12/17/24 14:16 12/17/24 14:30 Temperature Pulse Rate 81 77 80 Respiratory Rate 27 H 17 21 H Blood Pressure Pulse Oximetry 97 100 97 Oxygen Delivery 12/17/24 14:45 12/17/24 15:00 12/17/24 15:01 Temperature Pulse Rate 76 83 79 Respiratory Rate 20 21 H 23 H Blood Pressure 139/60 Pulse Oximetry 98 100 Oxygen Delivery Exam Const: General: comfortable and no acute distress Other: , female, elderly, nontoxic appearance HENMT: Face/Nose/Sinus: Normal nares present Mouth: Yes moist mucous membranes Eyes: General: appearance normal, both eyes and all related structures Sclera: sclerae normal Pupils: Equal, round and reactive pupils present EOM: EOMs intact bilaterally Resp: Effort & Inspection: normal respiratory effort Auscultation: clear to auscultation bilaterally Cardio: Rate: regular rate Rhythm: regular rhythm Other: S1-S2 present without murmur, rub, ectopy GI: Other: Abdomen soft, nondistended, nontender. Normoactive bowel sounds in all quadrants. Skin: General skin exam: normal color and no rashes or lesions noted Wounds: no wounds Neuro: Speech: normal speech Motor exam (neuro): 5/5 motor strength present throughout Sensory Exam: normal sensation Other: A&O x4 Extrem: Other: LLE slightly more edematous than the RLE. 2+ edema, non pitting to BLE. Psych: Mental Status: mental status grossly normal Affect: normal affect Other: Good insight and judgment, pleasant H&P: Results Labs Labs: Short CBC 12/17/24 Range/Units 11:57 WBC 7.0 (4.5-10.0) K/mm3 Hgb 9.5 L (12.0-15.0) g/dL Hct 32.8 L (37.0-47.0) % Plt Count 256 (150-375) k/mm3 BMP 12/17/24 11:57 Sodium 137 Potassium 5.3 H Chloride 106 Carbon Dioxide 23 BUN 41 H Creatinine 2.14 H Glucose 276 H Calcium 8.9 Cardiac Enzymes 12/17/24 Range/Units 11:57 Troponin I < 0.012 (0.000-0.034) ng/mL Liver Function 12/17/24 Range/Units 11:57 Total Bilirubin 0.4 (0.2-1.3) mg/dL AST 30 (14-36) U/L ALT 20 (6-35) U/L Alkaline Phosphatase 137 H (38-126) U/L Albumin 3.6 (3.5-5.1) g/dL Urine 12/17/24 Range/Units 13:09 Urine Color Yellow (Yellow) Urine Appearance Clear (Clear) Urine pH 6.5 (5.0-9.0) Ur Specific Spur 1.013 (1.001-1.035) Urine Protein 1+ H (Negative) mg/dL Urine Glucose (UA) 2+ H (Negative) mg/dL Assessment and Plan Assessment and plan (1) Chest pain: Qualifiers: Chest pain type: unspecified Qualified Code(s): R07.9 - Chest pain, unspecified Code(s): R07.9 - Chest pain, unspecified Status: Acute Assessment and Plan: - EKG, initial: Sinus rhythm, rate 84, low QRS voltage in precordial leads - EKG, repeat (1): Electronic atrial pacemaker, ST-TU wave deviation are present and sinus rhythm no longer present. Awaiting formal read - CXR: No acute cardiopulmonary abnormality. - Troponin: <0.012 x3 - ASA 324 given -> continue 81 daily - SL nitro PRN - cardiology consulted, awaiting recs - most recent echo on 09/2023, see below - patient had significantly elevated troponins in September of 2023, peak troponin was 10.7. At that time cardiac catheterization was discussed (risks versus benefits) as she was at a higher risk for contrast induced nephropathy given her CKD stage 4, patient at that time did not wish to pursue cardiac cathet erization. Later reconsidered, however her troponin was downtrending at that time and she had had no recurrence of chest pain and medical management of NSTEMI was pursued. - telemetry monitoring (2) Coronary artery disease: Qualifiers: Associated angina: with unspecified form of angina Coronary Disease- Associated Artery/Lesion type: unspecified vessel or lesion type [place] vs. transplanted heart: jackson heart Qualified Code(s): I25.119 - Atherosclerotic heart disease of jackson coronary artery with unspecified angina pectoris Code(s): I25.10 - Atherosclerotic heart disease of jackson coronary artery without angina pectoris Status: Acute Assessment and Plan: - continue home medication(s): plavix, daily aspirin, high-intensity statin, beta-sunny (3) CHF (congestive heart failure), NYHA class I: Qualifiers: Congestive heart failure chronicity: chronic Congestive heart failure type: diastolic Qualified Code(s): I50.32 - Chronic diastolic (congestive) heart failure Code(s): I50.9 - Heart failure, unspecified Status: Chronic Assessment and Plan: - most recent echo (09/2023): Systolic function normal, estimated EF 65-70%, hypokinesis of the mid inferoseptum, apical septum, apical cap, mid inferior wall, apical inferior, mid anteroseptum and grade 1 diastolic dysfunction. Mild valvular disease noted. See report for details. - not on daily diuretic - monitor I&Os and daily weights - trend renal function (4) Type 2 diabetes mellitus with chronic kidney disease, without long-term current use of insulin: Qualifiers: Chronic kidney disease stage: stage 4 (GFR 15-29) Qualified Code(s): E11.22 - Type 2 diabetes mellitus with diabetic chronic kidney disease; N18.4 - Chronic kidney disease, stage 4 (severe) Code(s): E11.22 - Type 2 diabetes mellitus with diabetic chronic kidney disease Status: Acute Assessment and Plan: - hypoglycemia protocol - POC blood glucose ACHS - home medication: continue glipizide - correct regimen ordered - high dose TIDWM, based off BMI - A1C 7.0% on 09/04/2024 (5) Chronic kidney disease, stage 4 (severe): Code(s): N18.4 - Chronic kidney disease, stage 4 (severe) Status: Chronic Assessment and Plan: - creatinine 2.14, BUN 41, GFR 22 upon admission, at baseline - trend renal function - trend electrolytes, correct as needed (6) Hyperlipidemia, unspecified: Qualifiers: Hyperlipidemia type: unspecified Qualified Code(s): E78.5 - Hyperlipidemia, unspecified Code(s): E78.5 - Hyperlipidemia, unspecified Status: Chronic Assessment and Plan: - continue home statin (7) Hypertension, essential: Code(s): I10 - Essential (primary) hypertension Status: Chronic Assessment and Plan: - chronic, currently 139/60. - continue home medications: Coreg, amlodipine - monitor Plan Patient has asymmetric swelling of the lower extremities, left greater than right. Ultrasound ordered. Diet: heart healthy GI Prophylaxis: n/a DVT Prophylaxis: Lovenox SQ IV fluids: none Lines/Tubes: peripheral IV Code Status: full code Quality VTE Prophylaxis VTE prophylaxis: pharmacologic ordered Hospitalist [facility] Advance Care Plan I have confirmed that the patient's Advanced Care Plan is present, code status is documented, or surrogate decision maker is listed in patient medical record.: Yes Medication Reconciliation I have utilized all available resources to obtain, update and review the patients current medications (includes all prescriptions, OTC, herbals, cannabis, and nutritional supplements).: Yes
--- NOTE | 2024-12-17 15:21 | ECG_ITS ---
Test Date: 2024-12-17 15:26:42 Measurements Intervals [place] Rate: 73 P: -69 [place]: 260 QRS: 34 QRSD: 74 T: 34 QT: 389 QTc: 429 Interpretive Statements SINUS RHYTHM NONSPECIFIC ST ABNORMALITY ABNORMAL ECG Compared to ECG 12/17/2024 11:45:34 ST (T wave) deviation now present Sinus rhythm no longer present Electronically Signed On 12-18-2024 07:47:42 CDT by Andrae Jarquin M.D.
[2024-12-17 16:06] LABS: Troponin I < 0.012 ng/mL (0.000-0.034)
--- NOTE | 2024-12-17 17:00 | PC.NURSE ---
Frequently calls out to nurses desk and states she urinated on herself. Pt has purwick in place draining, diaper is dry.
[2024-12-17 18:06] LABS: Troponin I < 0.012 ng/mL (0.000-0.034)
--- NOTE | 2024-12-17 18:22 | ADMGEN ---
This patient, Kori Arellano, was admitted to IMU Room 200-01. Patient/family oriented to hospital policies and general routines including ID bracelet, bed and alarms, visiting hours, pain management, procedures, bathroom and other care routines, personal items, smoking policy, room service/diet, and visiting hours. Information on how to activate the Rapid Response Team has been discussed. Patient/Family are encouraged to report perceived risks to care and to ask questions if they do not understand what they are told or what they should do.
[2024-12-17] MEDS: ACETAMINOPHEN 325 MG TABLET 650 MG PO (23:58)
[2024-12-18] VITALS (20 sets, daily range): BP systolic 127–157; BP diastolic 57–97; PULSE 71–95; RESP 16–20; TEMP 36.6–36.9; O2SAT 96–100
--- NOTE | 2024-12-18 | ECHO_ITS ---
Patient Info Name: Kori Arellano Age: 79 years : 1945 Gender: Female Ht: 63 in Wt: 194 lbs BSA: 2.02 m2 HR: 84 bpm BP: 157 / 97 mmHg Technical Quality: Good Exam Date: 12/18/2024 1:06 PM Patient Status: I Admit Date: 12/18/2024 Exam Type: CA echo doppler color flow Complete two-dimensional, color flow and Doppler transthoracic echocardiogram is performed. Staff Referring Physician: Sybil Sanchez Negative Spotter: Richard Gifford III Attending Provider: Chandler Garzon MD Summary 1. Complete two-dimensional, color flow and Doppler transthoracic echocardiogram is performed. 2. Left ventricular chamber dimension is normal. 3. Left ventricular systolic function is normal, estimated at 55-60. 4. There is mildly increased left ventricular wall thickness. 5. The left ventricular diastolic function is grade I diastolic dysfunction. 6. Right ventricular chamber dimension is mildly enlarged. 7. Right ventricular systolic function is normal. 8. Right atrial chamber dimension is mildly enlarged. 9. There is mild mitral valve regurgitation. 10. There is mild tricuspid valve regurgitation. 11. No pulmonary hypertension, estimated pulmonary arterial systolic pressure is 27 mmHg. 12. There is small pericardial effusion. Left Ventricle Left ventricular chamber dimension is normal. Left ventricular systolic function is normal, estimated at 55-60. There is mildly increased left ventricular wall thickness. Left ventricular septal wall motion is normal. The left ventricular diastolic function is grade I diastolic dysfunction. Right Ventricle Right ventricular chamber dimension is mildly enlarged. Right ventricular systolic function is normal. Left Atria Left atrial chamber dimension is normal. Right Atria Right atrial chamber dimension is mildly enlarged. Aortic Valve The aortic valve is trileaflet. There is no aortic valve sclerosis. There is no aortic valve stenosis. There is no aortic valve regurgitation. Pulmonic Valve The pulmonic valve is normal. There is no pulmonic valve stenosis. There is no pulmonic regurgitation. Mitral Valve The mitral valve has normal leaflets. There is no mitral valve stenosis. There is mild mitral valve regurgitation. Tricuspid Valve The tricuspid valve leaflets are normal. There is no significant tricuspid valve stenosis. There is mild tricuspid valve regurgitation. No pulmonary hypertension, estimated pulmonary arterial systolic pressure is 27 mmHg. Pericardium/Pleural The pericardium appears normal. There is small pericardial effusion. Inferior Vena Cava Normal inferior vena cava with >50% collapse upon inspiration consistent with normal right atrial pressure, 5 mmHg. Aorta The aortic root size at the sinus of Valsalva is normal. The prox ascending aorta size is normal. Left Ventricular Outflow Tract Name Value Normal LVOT 2D LVOT Diameter 2.0 cm LVOT Doppler LVOT Peak Velocity 111 cm/s LVOT Peak Gradient 5 mmHg LVOT Mean Gradient 3 mmHg LVOT VTI 24 cm LVOT VTI/AV VTI Ratio 0.9 LVOT Stroke Volume 75 ml LVOT CO 14.1 l/min LVOT CI 7.0 l/min/m2 Pulmonic Valve Name Value Normal PV Doppler PV Peak Velocity 123 cm/s PV Peak Gradient 6 mmHg PV Mean Gradient 3 mmHg Mitral Valve Name Value Normal MV Doppler MV Peak Gradient 11 mmHg MV Mean Gradient 4 mmHg MV Area (Cont Eq VTI) 2.4 cm2 MV Diastolic Function MV E Peak Velocity 89 cm/s MV A Peak Velocity 143 cm/s MV E/A 0.6 MV Decel Time (PW) 310 ms MV Annular TDI MV E/e' (Septal) 13.4 MV E/e' (Lateral) 12.4 MV E/e' (Average) 12.9 Tricuspid Valve Name Value Normal TV Regurgitation Doppler TR Peak Velocity 233 cm/s TR Peak Gradient 22 mmHg Estimated PAP/RSVP RA Pressure 5 mmHg <=5 PA Systolic Pressure 27 mmHg <36 RV Systolic Pressure 27 mmHg <36 TV Annular TDI TV Lateral Ariadna s' Velocity 14.8 cm/s >=9.5 Aortic Valve Name Value Normal AV Doppler AV Peak Velocity 134 cm/s AV Peak Gradient 7 mmHg AV Mean Gradient 4 mmHg AV VTI 25 cm AV Area (Cont Eq VTI) 3.0 cm2 >=3.0 AV Area (Cont Eq Santiago) 2.6 cm2 AV DI (Santiago) 0.82 AV Regurgitation 2D LVOT Area 3.2 cm2 Ventricles Name Value Normal LV Dimensions 2D/MM IVS Diastolic Thickness (2D) 1.1 cm 0.6-1.0 LVID Diastole (2D) 4.2 cm 3.8-5.2 LVIW Diastolic Thickness (2D) 0.9 cm 0.6-0.9 LVID Systole (2D) 2.9 cm 2.2-3.5 LVOT Diameter 2.0 cm LV Mass (2D Cubed) 136.22 g 67.00-162.00 LV Mass Index (2D Cubed) 68 g/m2 43-95 Relative Wall Thickness (2D) 0.43 <=0.42 LV Fractional Shortening/Ejection Fraction 2D/MM LV Fractional Shortening (2D) 32 % 27-45 LV EF (2D Teichholz) 60 % LV Diastolic Volume (4C MOD) 73 ml LV EF (4C MOD) 63 % LV Diastolic Length (4C) 7.1 cm LV Systolic Length (4C) 6.0 cm LV Stroke Volume (4C MOD) 45 ml Atria Name Value Normal LA Dimensions LA Volume (4C A-L) 50 ml LA Volume (BP A-L) 57 ml RA Dimensions RA Systolic Major Merino Length (4C) 4.9 cm 2.2-2.8 RA Area (4C) 20.1 cm2 <=18.0 Report Signatures
--- NOTE | 2024-12-18 02:43 | ECG_ITS ---
Test Date: 2024-12-18 02:49:46 Measurements Intervals [place] Rate: 73 P: 22 MS: 170 QRS: 13 QRSD: 66 T: 25 QT: 378 QTc: 418 Interpretive Statements SINUS RHYTHM LOW QRS VOLTAGE IN PRECORDIAL LEADS [QRS DEFLECTION < 1.0 mV IN CHEST LEADS] ABNORMAL ECG Compared to ECG 12/17/2024 15:26:42 Low QRS voltage now present ST (T wave) deviation no longer present Electronically Signed On 12-18-2024 07:51:49 CDT by Andrae Jarquin M.D.
[2024-12-18 04:45] LABS: Hematocrit 32.6 % (37.0-47.0); Hemoglobin 9.6 g/dL (12.0-15.0); Immature Granulocyte Percent A 0.4 % (0-0.5); Lymphocytes Absolute Auto 2.42 K/mm3 (0.9-3.2); Mean Corpuscular HGB Conc 29.4 g/dl (32-36); Mean Corpuscular Hemoglobin 26.4 pg (26-34); Mean Corpuscular Volume 89.6 fl (80-100); Nucleated Red Blood Cells Absolute Auto 0.000 K/mm3 (0.0-0.012); Nucleated Red Blood Cells Perc 0.0 % (0.0-0.2); Platelet Count Result 256 k/mm3 (150-375); Red Blood Count 3.64 M/mm3 (4.2-5.4); White Blood Count 8.2 K/mm3 (4.5-10.0)
[2024-12-18 05:05] LABS: Anion Gap 8 mmol/L (4-12); Blood Urea Nitrogen 36 mg/dL (7-17); Calcium 8.9 mg/dL (8.4-10.2); Carbon Dioxide 23 mmol/L (22-30); Chloride 109 mmol/L (98-107); Estimated CRCL calculation 19 ml/min; Estimated Glomerular Filt Rate 21; Glucose 126 mg/dL (65-110); Potassium 5.0 mmol/L (3.4-5.0); Sodium 140 mmol/L (137-145)
[2024-12-18] MEDS: ATORVASTATIN 40 MG TABLET 80 MG PO (08:37)
[2024-12-18] MEDS: DOCUSATE SODIUM 100 MG CAPSULE PO ×2 (08:38→17:31)
[2024-12-18] MEDS: CLOPIDOGREL BISULFATE 75 MG TABLET PO (08:38)
[2024-12-18] MEDS: PANTOPRAZOLE SOD SESQUIHYDRATE 20 MG TAB PO (08:38)
[2024-12-18] MEDS: ASPIRIN 81 MG ENTERIC TABLET PO (08:38)
[2024-12-18] MEDS: ENOXAPARIN 30 MG/0.3 ML SYRINGE SUB-Q (08:47)
--- NOTE | 2024-12-18 13:24 | P.CONCA_ITS ---
Assessment and Plan Assessment and plan (1) CHF (congestive heart failure), NYHA class I: Qualifiers: Congestive heart failure chronicity: chronic Congestive heart failure type: diastolic Qualified Code(s): I50.32 - Chronic diastolic (congestive) heart failure Code(s): I50.9 - Heart failure, unspecified Status: Chronic Assessment and Plan: Acute diastolic heart failure (2) Chest pain: Qualifiers: Chest pain type: unspecified Qualified Code(s): R07.9 - Chest pain, unspecified Code(s): R07.9 - Chest pain, unspecified Status: Acute (3) Hypertension, essential: Code(s): I10 - Essential (primary) hypertension Status: Chronic Plan Diagnosis: Chest pain at rest-last echo in 2023 showed significant regional wall motion abnormalities with normal LVEF, troponin x3 negative during this admission CAD, NSTEMI in 2023 which was managed medically due to CKD Acute diastolic heart failure CKD stage 4 with creatinine 2.24 today; baseline creatinine varies between 2-3 Hyperlipidemia Hypertension Plan: Discussed cardiac catheterization versus medical management with patient and her . Given she does not have any chest pain at this time, troponin X 3 negative, and CKD with creatinine 2.24 patient prefers continuing medical management Continue aspirin, Plavix, statin, glipizide, beta-sunny, amlodipine Sublingual nitro p.r.n. for chest pain Add Imdur 30 mg p.o. daily TTE Check and replace electrolytes to keep potassium greater than 4 and magnesium greater than 2 Lasix 40 mg IV once today History of Present Illness History of Present Illness Consult date/time: 12/18/24 13:24 Reason For Visit: Chest Pain Narrative: 79-year-old female with history of congestive heart failure, pulmonary hypertension, CAD, NSTEMI in 2023 treated at [facility] (peak troponin troponin was 10.7, cardiac catheterization was not done due to CKD stage 4 and she was medically managed), hyperlipidemia, hypertension, pulmonary hypertension, type 2 diabetes mellitus, chronic pancreatitis, diabetic peripheral neuropathy, CKD stage 4, anemia presents with chief complaints of chest pain. She presented to the ER via EMS for further evaluation of chest pain. She states that left-sided chest pain started a day prior to admission while she was watching TV. The chest pain was dull with radiation down her arms. The pain was constant with no aggravating factors. Tylenol partially helped her pain but mostly resolved towards the end of the day without intervention. However the pain returned yesterday while she was rest and was accompanied by nausea, diaphoresis, shortness of breath, and a heaviness in her bilateral upper extremities which she had never experienced before. She does not have any chest pain today. She states that her last stents were more than 8 years ago. Since then she has occasional chest pains once every few months. In the weeks and months prior to this admission she has not had any significant chest pain outside of the most recent episode. No dizziness, lightheadedness, palpitations, recent weight gain, leg swelling, presyncope, syncope. Troponin X 3-. EKG shows sinus rhythm and low-voltage QRS in precordial leads. Creatinine is elevated 2.2 4. Cardiology is consulted for further management. Workup: Hemoglobin: 9.6 Creatinine: 2.24 Troponin: <0.012 X 3 NT proBNP: 766 EKG: Sinus rhythm, low-voltage QRS in precordial leads, nonspecific ST change Chest x-ray: No acute cardiopulmonary pathology Venous Doppler: Negative for DVT CT abdomen and pelvis:IMPRESSION: 1. Probable cystitis. 2. Mild probable proctitis. No perforation or abscess. 3. Incidental findings above Prior cardiac workup: TTE in 2023:Summary 1. Left ventricular chamber dimension is normal. 2. Left ventricular systolic function is normal, estimated at 65-70%. 3. There is hypokinesis of the mid inferoseptum, apical septum, apical cap, mid inferior wall, apical inferior, mid anteroseptum. 4. The left ventricular diastolic function is grade I diastolic dysfunction. 5. Right ventricular systolic function is normal. 6. There is mild tricuspid valve regurgitation. Review of Systems 2 Review of Systems: A complete review of systems was performed and pertinent positives are reported in HPI [facility] Past Medical History Medical History Chronic pancreatitis Diverticulosis Nausea and vomiting Rectal pain Encounter for immunization Neurocognitive disorder Intertrochanteric fracture of left hip Psychogenic formication Pulmonary HTN Metabolic acidosis NATE (acute kidney injury) Sepsis CHF (congestive heart failure), NYHA class I Anemia Postmenopausal Chronic kidney disease, stage 4 (severe) Coronary artery disease involving [place] heart without angina pectoris Diabetic peripheral neuropathy Hyperlipidemia, unspecified Hypertension, essential Thrombosed external hemorrhoid Type 2 diabetes mellitus with hyperglycemia PAD (peripheral artery disease) Surgical History Surgical History History of hip surgery with femur H/O heart artery stent X3 Hx of tonsillectomy History of cholecystectomy Laparoscopic cholecystectomy Family History Family History Mother Family history of cardiovascular disease Diabetes mellitus Cerebrovascular accident Father Myocardial infarction Sibling Congestive heart failure Colon cancer Other Hypertension Social History Social History Social History: The patient had 3 children. 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 Her Trey is the durable power compliance attorney for healthcare. The patient is a full code. Who is a lifelong nonsmoker. She does not use any alcohol marijuana or illicit drugs. Code status full code Smoking status: Never smoker Second hand tobacco smoke exposure: No Alcohol intake: never Substance use: never Substance use type: does not use Do You Feel Safe in your Home?: Yes Lack of Transportation: No Lack of Food: Never True Current Housing: I Have Housing Concerned About Future Housing: No Difficulty Paying Gas/Electric Bills: No Difficulty Paying for Meds: No Currently Unemployed: No Education: High School Diploma/GED Difficulty w/ Childcare or Family Care: No Living arrangements: with family Occupation/Education: retired Gender identity (if verbalized by the patient): Female Sexual Orientation (if Verbalized by the Patient): Straight or Heterosexual Spiritual care concerns: No Agree to blood products: Yes Meds Home Medications and Allergies Home Medications ?Medication ?Instructions ?Recorded ?Confirmed ?Type flash glucose scanning reader #1 ea 11/05/22 12/17/24 Rx (FreeStyle [place]onal 2 [place]) acetaminophen 325 mg capsule 650 mg (2 x 325 mg) PO Q6 H PRN 01/22/23 12/17/24 Rx (Tylenol) pain #30 caps aspirin 81 mg tablet,delayed 81 mg PO DAILY #30 tabs 0 09/24/23 12/17/24 Rx release (Adult Aspirin Regimen) amlodipine 10 mg tablet See Rx Instructions .Route 0 08/17/24 12/17/24 Rx .COMPLEX #90 tabs glipizide 2.5 mg tablet, extended See Rx Instructions .Route 09/27/24 12/17/24 Rx release 24 hr .COMPLEX #90 tabs flash glucose sensor (FreeStyle #6 ea 09/28/24 5 Rx Ronal 2 Sensor kit) ondansetron 4 mg disintegrating 4 mg PO Q6H PRN nausea and 10/15/24 12/17/24 Rx tablet vomiting #10 tabs clopidogrel 75 mg tablet See Rx Instructions .Route 0 10/16/24 12/17/24 Rx .COMPLEX #30 tabs pantoprazole 20 mg tablet,delayed 20 mg PO QAM #90 tab s 10/17/24 12/17/24 Rx release sertraline 25 mg tablet 25 mg PO DAILY anxiety #30 t abs 10/17/24 12/17/24 Rx linaclotide 145 mcg capsule 145 mcg PO DAILY@0630 #30 caps 11/02/24 12/17/24 Rx (Linzess) polyethylene glycol 3350 17 gram 17 g PO QAM #30 ea 12/17/24 Rx oral powder packet (Miralax) atorvastatin 80 mg tablet See Rx Instructions .Route 0 11/17/24 12/17/24 Rx .COMPLEX #90 tabs carvedilol 6.25 mg tablet See Rx Instructions .Route 0 12/11/24 12/17/24 Rx .COMPLEX #60 tabs hydrocortisone 2.5 % topical cream 1 applic RECTAL BID PRN 12/15/24 12/17/24 Rx with perineal applicator hemorrhoids #30 grams triamcinolone acetonide 0.1 % 1 applic topical TID vag inal 12/15/24 12/17/24 Rx topical cream irritation #30 grams docusate sodium 100 mg capsule 100 mg PO BID 12/17/24 12/17/24 History Allergies Allergy/AdvReac Type Severity Reaction Status Date / Time codeine Allergy Intermediate Rash Verified 12/17/24 13:59 Penicillins Allergy Intermediate Rash Verified 12/17/24 13:59 Sulfa (Sulfonamide Allergy Intermediate cheeks get Verified 12/17/24 13:59 Antibiotics) really red hydroxyzine (From Atarax) AdvReac Unknown deep sleep Verified 12/17/24 13:59 mulberry Allergy Mild Rash Uncoded 12/15/24 10:24 Vital Signs Vital Signs - 24 hr 12/17/24 13:25 12/17/24 13:30 12/17/24 13:45 Temperature Pulse Rate 79 78 Respiratory Rate 21 H 20 Blood Pressure Pulse Oximetry 96 100 Oxygen Delivery 12/17/24 14:00 12/17/24 14:14 12/17/24 14:15 Temperature Pulse Rate 82 78 81 Respiratory Rate 19 29 H 27 H Blood Pressure 152/65 H Pulse Oximetry 97 97 Oxygen Delivery 12/17/24 14:16 12/17/24 14:30 12/17/24 14:45 Temperature Pulse Rate 77 80 76 Respiratory Rate 17 21 H 20 Blood Pressure Pulse Oximetry 100 97 Oxygen Delivery 12/17/24 15:00 12/17/24 15:01 12/17/24 15:02 Temperature Pulse Rate 83 79 79 Respiratory Rate 21 H 23 H 20 Blood Pressure 139/60 Pulse Oximetry 98 100 98 Oxygen Delivery 12/17/24 15:15 12/17/24 15:30 12/17/24 15:46 Temperature Pulse Rate 76 84 Respiratory Rate 23 H 22 H Blood Pressure 153/67 H Pulse Oximetry 99 Oxygen Delivery 12/17/24 15:50 12/17/24 16:00 12/17/24 16:15 Temperature Pulse Rate Respiratory Rate Blood Pressure Pulse Oximetry 97 97 99 Oxygen Delivery 12/17/24 16:30 12/17/24 16:31 12/17/24 16:45 Temperature Pulse Rate 82 Respiratory Rate Blood Pressure 156/73 H Pulse Oximetry 97 96 99 Oxygen Delivery 12/17/24 17:00 12/17/24 17:16 12/17/24 17:21 Temperature Pulse Rate Respiratory Rate Blood Pressure 165/66 H Pulse Oximetry 98 99 Oxygen Delivery 12/17/24 17:30 12/17/24 20:00 12/17/24 20:00 Temperature 36.6 C Pulse Rate 87 76 79 Respiratory Rate 16 Blood Pressure 151/57 H Pulse Oximetry 97 99 Oxygen Delivery 12/17/24 22:00 12/18/24 00:00 12/18/24 00:00 Temperature 36.6 C Pulse Rate 88 75 80 Respiratory Rate 16 Blood Pressure 156/57 H Pulse Oximetry 100 Oxygen Delivery 12/18/24 02:00 12/18/24 04:00 12/18/24 04:00 Temperature 36.6 C Pulse Rate 79 81 80 Respiratory Rate 16 Blood Pressure 155/70 H Pulse Oximetry 99 Oxygen Delivery 12/18/24 06:00 12/18/24 08:00 12/18/24 08:03 Temperature 36.7 C Pulse Rate 78 85 93 Respiratory Rate 20 Blood Pressure 157/97 H Pulse Oximetry 99 Oxygen Delivery 12/18/24 08:24 12/18/24 08:37 12/18/24 10:00 Temperature Pulse Rate 84 79 Respiratory Rate Blood Pressure Pulse Oximetry 96 Oxygen Delivery Room Air 12/18/24 11:48 Temperature 36.8 C Pulse Rate 88 Respiratory Rate 18 Blood Pressure 149/62 H Pulse Oximetry 99 Oxygen Delivery Exam 2 Narrative: General: Alert oriented x3, no acute distress Neck: Supple, JVD+ Chest: Bilaterally clear to auscultation, no rales or rhonchi Cardiac: S1, S2 +, regular rate, regular rhythm, no murmurs or rubs Extremities: Bilateral lower extremity edema 1+, no skin rash Neurologic: Alert and oriented x3, no focal neurological deficits Results Labs and Meds 12/18/24 03:45 12/18/24 03:45 Lab results: Cardiac Enzymes 12/17/24 12/17/24 Range/Units 15:27 17:35 Troponin I < 0.012 < 0.012 (0.000-0.034) ng/mL Coagulation 12/17/24 Range/Units 11:57 PT Cancelled APTT Cancelled CBC 12/18/24 Range/Units 03:45 WBC 8.2 (4.5-10.0) K/mm3 RBC 3.64 L (4.2-5.4) M/mm3 Hgb 9.6 L (12.0-15.0) g/dL Hct 32.6 L (37.0-47.0) % Plt Count 256 (150-375) k/mm3 Lymph # (Auto) 2.42 (0.9-3.2) K/mm3 [place] # (Auto) 0.6 (0.1-0.6) K/mm3 Eos # (Auto) 0.3 (0-0.3) K/mm3 Baso # (Auto) 0.0 (0.0-0.1) K/mm3 Comprehensive Metabolic Panel 12/18/24 Range/Units 03:45 Sodium 140 (137-145) mmol/L Potassium 5.0 (3.4-5.0) mmol/L Chloride 109 H (98-107) mmol/L Carbon Dioxide 23 (22-30) mmol/L BUN 36 H (7-17) mg/dL Creatinine 2.24 H (0.7-1.0) mg/dL Glucose 126 H (65-110) mg/dL Calcium 8.9 (8.4-10.2) mg/dL Intake and Output 12/17/24 12/18/24 12/18/24 23:59 07:59 15:59 Intake Total 720 Output Total 600 600 650 Balance -600 -600 70 Intake: Oral 720 Output: Urine 600 600 650 Patient Weight 12/18/24 23:59 Weight 88.2 kg
--- NOTE | 2024-12-18 14:10 | P.PNIM_ITS ---
Progress Note: A&P Assessment and Plan (1) Hypertension, essential: Code(s): I10 - Essential (primary) hypertension Status: Chronic (2) CHF (congestive heart failure), NYHA class I: Qualifiers: Congestive heart failure type: diastolic Congestive heart failure chronicity: chronic Qualified Code(s): I50.32 - Chronic diastolic (congestive) heart failure Code(s): I50.9 - Heart failure, unspecified Status: Chronic (3) Coronary artery disease involving [place] heart without angina pectoris: Code(s): I25.10 - Atherosclerotic heart disease of [place] coronary artery without angina pectoris Status: Acute (4) H/O heart artery stent: Code(s): Z95.5 - Presence of coronary angioplasty implant and graft Status: Acute (5) Type 2 diabetes mellitus with hyperglycemia: Code(s): E11.65 - Type 2 diabetes mellitus with hyperglycemia Status: Chronic Plan 79-year-old female with history of congestive heart failure, pulmonary hypertension, CAD, NSTEMI in 2023 treated at [facility] (peak troponin troponin was 10.7, cardiac catheterization was not done due to CKD stage 4 and she was medically managed), hyperlipidemia, hypertension, P 80, type 2 diabetes mellitus, chronic pancreatitis, diabetic peripheral neuropathy, CKD stage 4, anemia presents with chief complaints of chest pain. She presented to the ER yesterday from home via EMS for further evaluation of chest pain.Troponin X 3-. EKG shows sinus rhythm and low-voltage QRS in precordial leads. Creatinine is elevated 2.2 4. Cardiology is consulted for further management. 1. Chest pain: Continue with tele monitoring Echocardiogram Continue with aspirin, Plavix, beta-sunny, statin Will add Imdur, sublingual nitro 2. Type 2 diabetes mellitus: Hold glipizide Glucose check t.i.d. a.c. and HS Continue with sliding scale insulin Patient is not a great candidate for glipizide given her kidney dysfunction Will not resume upon discharge 3. Chronic kidney disease stage 4: Avoid nephrotoxins Recheck BMP in a.m. Monitor potassium levels 4. History of hypertension: Continue with Norvasc, Coreg 5. DVT prophylaxis: Lovenox 6. Code status: Full 7. Disposition: Pending improvement Time Spent With Patient Time: 38 minutes Subjective Date/time seen: 12/18/24 14:10 Interval history: Chest pain Review of Systems Review of Systems: All systems reviewed & are unremarkable except as noted in HPI and below Exam Const: General: comfortable and no acute distress Other: , female, elderly, nontoxic appearance HENMT: Face/Nose/Sinus: Normal nares present Mouth: Yes moist mucous membranes Eyes: General: appearance normal, both eyes and all related structures Sclera: sclerae normal Pupils: Equal, round and reactive pupils present EOM: EOMs intact bilaterally Resp: Effort & Inspection: normal respiratory effort Auscultation: clear to auscultation bilaterally Cardio: Rate: regular rate Rhythm: regular rhythm Other: S1-S2 present without murmur, rub, ectopy GI: Other: Abdomen soft, nondistended, nontender. Normoactive bowel sounds in all quadrants. Skin: General skin exam: normal color and no rashes or lesions noted Wounds: no wounds Neuro: Speech: normal speech Motor exam (neuro): 5/5 motor strength present throughout Sensory Exam: normal sensation Other: A&O x4 Extrem: Other: LLE slightly more edematous than the RLE. 2+ edema, non pitting to BLE. Psych: Mental Status: mental status grossly normal Affect: normal affect Other: Good insight and judgment, pleasant Objective Data Vital Signs Vital Signs: Vital Signs - 24 hr 12/17/24 14:14 12/17/24 14:15 12/17/24 14:16 Temperature Pulse Rate 78 81 77 Respiratory Rate 29 H 27 H 17 Blood Pressure 152/65 H Pulse Oximetry 97 97 100 Oxygen Delivery 12/17/24 14:30 12/17/24 14:45 12/17/24 15:00 Temperature Pulse Rate 80 76 83 Respiratory Rate 21 H 20 21 H Blood Pressure Pulse Oximetry 97 98 Oxygen Delivery 12/17/24 15:01 12/17/24 15:02 12/17/24 15:15 Temperature Pulse Rate 79 79 76 Respiratory Rate 23 H 20 23 H Blood Pressure 139/60 Pulse Oximetry 100 98 99 Oxygen Delivery 12/17/24 15:30 12/17/24 15:46 12/17/24 15:50 Temperature Pulse Rate 84 Respiratory Rate 22 H Blood Pressure 153/67 H Pulse Oximetry 97 Oxygen Delivery 12/17/24 16:00 12/17/24 16:15 12/17/24 16:30 Temperature Pulse Rate Respiratory Rate Blood Pressure Pulse Oximetry 97 99 97 Oxygen Delivery 12/17/24 16:31 12/17/24 16:45 12/17/24 17:00 Temperature Pulse Rate 82 Respiratory Rate Blood Pressure 156/73 H Pulse Oximetry 96 99 98 Oxygen Delivery 12/17/24 17:16 12/17/24 17:21 12/17/24 17:30 Temperature Pulse Rate 87 Respiratory Rate Blood Pressure 165/66 H Pulse Oximetry 99 97 Oxygen Delivery 12/17/24 20:00 12/17/24 20:00 12/17/24 22:00 Temperature 98 F Pulse Rate 76 79 88 Respiratory Rate 16 Blood Pressure 151/57 H Pulse Oximetry 99 Oxygen Delivery 12/18/24 00:00 12/18/24 00:00 12/18/24 02:00 Temperature 97.9 F Pulse Rate 75 80 79 Respiratory Rate 16 Blood Pressure 156/57 H Pulse Oximetry 100 Oxygen Delivery 12/18/24 04:00 12/18/24 04:00 12/18/24 06:00 Temperature 97.9 F Pulse Rate 81 80 78 Respiratory Rate 16 Blood Pressure 155/70 H Pulse Oximetry 99 Oxygen Delivery 12/18/24 08:00 12/18/24 08:03 12/18/24 08:24 Temperature 98.1 F Pulse Rate 85 93 Respiratory Rate 20 Blood Pressure 157/97 H Pulse Oximetry 99 96 Oxygen Delivery Room Air 12/18/24 08:37 12/18/24 10:00 12/18/24 11:48 Temperature 98.3 F Pulse Rate 84 79 88 Respiratory Rate 18 Blood Pressure 149/62 H Pulse Oximetry 99 Oxygen Delivery Intake/Output Intake/Output: Intake & Output 12/15/24 12/16/24 12/17/24 12/18/24 23:59 23:59 23:59 23:59 Intake Total 1000 720 Output Total 750 1250 Balance 250 -530 Meds/Results Medications: Active Medications Generic Name Dose Route Start Last Admin Trade Name Freq PRN Reason Stop Dose Admin Acetaminophen 650 mg 12/17/24 14:57 12/17/24 23:58 Acetaminophen 325 Mg Tablet PO 650 mg Q4H PRN Administration Mild Pain (1-3) or Fever Hydrocodone Bitart/Acetaminophen 1 tab 12/17/24 14:57 Hydrocodone/Acetaminophen (*Crx) 5-325 Mg Tablet PO Q4H PRN Pain Rated 4-6 Amlodipine Besylate 10 mg 12/18/24 09:00 12/18/24 08:38 Amlodipine Besylate 10 Mg Tablet PO 10 mg DAILY JACKY Administration Aspirin 81 mg 12/18/24 09:00 12/18/24 08:38 Aspirin 81 Mg Enteric Tablet PO 81 mg QAM JACKY Administration Atorvastatin Calcium 80 mg 12/18/24 09:00 12/18/24 08:37 Atorvastatin 40 Mg Tablet PO 80 mg DAILY JACKY Administration Carvedilol 6.25 mg 12/17/24 22:10 12/18/24 08:37 Carvedilol 6.25 Mg Tablet PO 6.25 mg Q12HR JACKY Administration Clopidogrel Bisulfate 75 mg 12/18/24 09:00 12/18/24 08:38 Clopidogrel Bisulfate 75 Mg Tablet PO 75 mg DAILY JACKY Administration Dextrose 12.5 gm 12/17/24 22:11 Dextrose 50% 25 Gm/50 Ml Syringe IV PUSH PRN PRN Hypoglycemia Protocol Docusate Sodium 100 mg 12/18/24 09:00 12/18/24 08:38 Docusate Sodium 100 Mg Capsule PO 100 mg BID JACKY Administration Enoxaparin Sodium 30 mg 12/18/24 09:00 12/18/24 08:47 Enoxaparin 30 Mg/0.3 Ml Syringe SUB-Q 30 mg DAILY JACKY Administration Glipizide 2.5 mg 12/18/24 08:00 12/18/24 08:37 Glipizide Xl 2.5 Mg Tab.Er.24 PO 2.5 mg On Hold: 12/18/24 08:52 DAILY@0800 JACKY Administration Glucagon 1 mg 12/17/24 22:11 Glucagon For Inj 1 Mg Vial IM PRN PRN Hypoglycemia Protocol Glucose 15 gm 12/17/24 22:11 Glucose Oral Gel 15 Gm Of Glucse In 37.5 Gm Tube PO PRN PRN Hypoglycemia Protocol Hydrocortisone 1 applic 12/17/24 22:20 Hydrocortisone 2.5% Cream 30 Gm Tube RECTAL BID PRN hemorrhoids Dextrose 1,000 mls @ 100 mls/hr 12/17/24 22:11 Dextrose 5% 1,000 Ml IVPB PRN PRN Hypoglycemia Protocol Insulin Aspart 4 - 8 units 12/18/24 08:00 12/18/24 12:35 Insulin Aspart (*Bkc) 100 Units/Ml SUB-Q Not Given TIDWM [facility] Protocol Nitroglycerin 0.4 mg 12/17/24 16:04 Nitroglycerin Sl 0.4 Mg Tablet SUBLINGUAL Q5MIN PRN Chest Pain Ondansetron HCl 4 mg 12/17/24 14:57 Ondansetron Inj 4 Mg/2 Ml Vial IV PUSH Q4H PRN Nausea Pantoprazole Sodium 20 mg 12/18/24 09:00 12/18/24 08:38 Pantoprazole Sod Sesquihydrate 20 Mg Tab PO 20 mg QAM JACKY Administration Perflutren Lipid Microsphere 0 ml 12/18/24 08:52 Perflutren Lipid Microspheres 1.5 Ml Vial Diluted To 10 Ml Total Volume IV PUSH 12/21/24 08:53 ONCE PRN adequate visualization Protocol Polyethylene Glycol 17 gm 12/18/24 09:00 12/18/24 08:39 Polyethylene Glycol 3350 17 Gm Powd.Pack PO Not Given QAM [facility] Radiology Results: ITS Impressions Chest X-Ray 12/17/24 12:36 Impression: No acute cardiopulmonary abnormality. Abdomen/Pelvis CT 12/17/24 13:47 IMPRESSION: 1. Probable cystitis. 2. Mild probable proctitis. No perforation or abscess. 3. Incidental findings above ADDENDUM: 12/17/24 1354 There is a small fat-containing left periumbilical hernia, defect in the abdominal wall measures 1 cm, there is no complicated bowel in this location Venous Doppler Study 12/18/24 08:13 Impression: Negative for DVT. Labs Labs: Laboratory Results - last 24 hr 12/17/24 12/17/24 12/17/24 11:57 15:27 17:35 WBC RBC Hgb Hct MCV MCH MCHC RDW Plt Count MPV Immature Gran % (Auto) Neut % (Auto) Lymph % (Auto) [place] % (Auto) Eos % (Auto) Baso % (Auto) Lymph # (Auto) [place] # (Auto) Eos # (Auto) Baso # (Auto) Abs Immat Gran (auto) Absolute Neuts (auto) Absolute Nucleated RBC Nucleated RBC % PT Cancelled INR Cancelled APTT Cancelled Sodium Potassium Chloride Carbon Dioxide Anion Gap BUN Creatinine Estim Creat Clear Calc Estimated GFR Glucose POC Capillary Glucose Calcium Troponin I < 0.012 < 0.012 12/17/24 12/18/24 12/18/24 21:05 03:45 07:25 WBC 8.2 RBC 3.64 L Hgb 9.6 L Hct 32.6 L MCV 89.6 MCH 26.4 MCHC 29.4 L RDW 18.4 H Plt Count 256 MPV 9.8 Immature Gran % (Auto) 0.4 Neut % (Auto) 57.9 Lymph % (Auto) 29.4 [place] % (Auto) 7.7 Eos % (Auto) 4.1 Baso % (Auto) 0.5 Lymph # (Auto) 2.42 [place] # (Auto) 0.6 Eos # (Auto) 0.3 Baso # (Auto) 0.0 Abs Immat Gran (auto) 0.03 Absolute Neuts (auto) 4.8 Absolute Nucleated RBC 0.000 Nucleated RBC % 0.0 PT INR APTT Sodium 140 Potassium 5.0 Chloride 109 H Carbon Dioxide 23 Anion Gap 8 BUN 36 H Creatinine 2.24 H Estim Creat Clear Calc 19 Estimated GFR 21 L Glucose 126 H POC Capillary Glucose 187 H 141 H Calcium 8.9 Troponin I 12/18/24 11:15 WBC RBC Hgb Hct MCV MCH MCHC RDW Plt Count MPV Immature Gran % (Auto) Neut % (Auto) Lymph % (Auto) [place] % (Auto) Eos % (Auto) Baso % (Auto) Lymph # (Auto) [place] # (Auto) Eos # (Auto) Baso # (Auto) Abs Immat Gran (auto) Absolute Neuts (auto) Absolute Nucleated RBC Nucleated RBC % PT INR APTT Sodium Potassium Chloride Carbon Dioxide Anion Gap BUN Creatinine Estim Creat Clear Calc Estimated GFR Glucose POC Capillary Glucose 144 H Calcium Troponin I Quality VTE Prophylaxis VTE prophylaxis: pharmacologic ordered
[2024-12-18] MEDS: ISOSORBIDE MONONITRATE 30 MG TAB.ER.24H PO (14:32)
[2024-12-18] MEDS: HYDROcodone/acetaminophen (*CRX) 5-325 MG TABLET 1 TAB PO (21:00)
[2024-12-19] VITALS (11 sets, daily range): BP systolic 131–146; BP diastolic 60–77; PULSE 61–84; RESP 18–20; TEMP 36.5–36.7; O2SAT 96–100
[2024-12-19 04:33] LABS: Hematocrit 30.0 % (37.0-47.0); Hemoglobin 8.7 g/dL (12.0-15.0); Immature Granulocyte Percent A 0.3 % (0-0.5); Lymphocytes Absolute Auto 3.17 K/mm3 (0.9-3.2); Mean Corpuscular HGB Conc 29.0 g/dl (32-36); Mean Corpuscular Hemoglobin 26.2 pg (26-34); Mean Corpuscular Volume 90.4 fl (80-100); Nucleated Red Blood Cells Absolute Auto 0.000 K/mm3 (0.0-0.012); Nucleated Red Blood Cells Perc 0.0 % (0.0-0.2); Platelet Count Result 233 k/mm3 (150-375); Red Blood Count 3.32 M/mm3 (4.2-5.4); White Blood Count 7.8 K/mm3 (4.5-10.0)
[2024-12-19 05:03] LABS: Anion Gap 7 mmol/L (4-12); Blood Urea Nitrogen 40 mg/dL (7-17); Calcium 8.7 mg/dL (8.4-10.2); Carbon Dioxide 21 mmol/L (22-30); Chloride 107 mmol/L (98-107); Estimated CRCL calculation 18 ml/min; Estimated Glomerular Filt Rate 20; Glucose 94 mg/dL (65-110); Potassium 5.1 mmol/L (3.4-5.0); Sodium 135 mmol/L (137-145)
[2024-12-19 05:16] LABS: Anisocytosis 1+; Hypochromasia 1+; Ovalocytes 1+
[2024-12-19 05:17] LABS: Schistocytes None Seen
--- NOTE | 2024-12-19 08:49 | PN_ITS ---
This document was recreated on 01/08/2025. The original document was signed by Britta Garzon APRN on 12/19/2024 1501. Progress Note: A&P Assessment and Plan (1) CHF (congestive heart failure), NYHA class I: Qualifiers: Congestive heart failure chronicity: chronic Congestive heart failure type: diastolic Qualified Code(s): I50.32 - Chronic diastolic (congestive) heart failure Code(s): I50.9 - Heart failure, unspecified Status: Chronic Assessment and Plan: Acute diastolic heart failure (2) Chest pain: Qualifiers: Chest pain type: unspecified Qualified Code(s): R07.9 - Chest pain, unspecified Code(s): R07.9 - Chest pain, unspecified Status: Acute (3) Hypertension, essential: Code(s): I10 - Essential (primary) hypertension Status: Chronic Plan Diagnosis: Chest pain at rest-last echo in 2023 showed significant regional wall motion abnormalities with normal LVEF, troponin x3 negative during this admission CAD, NSTEMI in 2023 which was managed medically due to CKD Acute diastolic heart failure CKD stage 4 with creatinine 2.24 on last labs; baseline creatinine varies between 2-3 Hyperlipidemia Hypertension Plan: Discussed cardiac catheterization versus medical management with patient and her . Given she does not have any chest pain at this time, troponin X 3 negative, and CKD patient prefers continuing medical management Continue aspirin, Plavix, statin, glipizide, beta-sunny, amlodipine Sublingual nitro p.r.n. for chest pain Added Imdur 30 mg p.o. daily follow up echo this admission showed EF of 55-60%, grade I diastolic dysfunction and no significant valvular abnormalities. Check and replace electrolytes to keep potassium greater than 4 and magnesium greater than 2 Would change to PO lasix 20 mg daily She would be stable for dc home later today and can follow up OP with her biology adjunct instructor Dr. Tobar Subjective Date/time seen: 12/19/24 08:49 Interval history: Chest pain Patient is sitting up in chair, sitter is at bedside. No chest pain or shortness of breath. No dizziness or palpitations. Review of Systems Review of Systems: A complete review of systems was performed and pertinent positives are reported in HPI Exam Narrative: General: Alert oriented x3, no acute distress Neck: Supple, JVD+ Chest: Bilaterally clear to auscultation, no rales or rhonchi Cardiac: S1, S2 +, regular rate, regular rhythm, no murmurs or rubs Extremities: Bilateral lower extremity edema 1+, no skin rash Neurologic: Alert and oriented x3, no focal neurological deficits Objective Data Vital Signs Vital Signs: Vital Signs - 24 hr 12/18/2509:00 12/18/2510:48 12/19/2511:00 Temperature 36.8 C Pulse Rate 79 88 95 Respiratory Rate 18 Blood Pressure 149/62 H Pulse Oximetry 99 Oxygen Delivery 12/18/2513:00 12/18/2514:46 12/19/2515: Temperature 36.9 C Pulse Rate 87 92 91 Respiratory Rate 20 Blood Pressure 150/71 H Pulse Oximetry 96 Oxygen Delivery 12/18/2517:00 12/19/2519:00 12/19/2519: Temperature 36.6 C Pulse Rate 90 91 86 Respiratory Rate 20 20 Blood Pressure 138/77 Pulse Oximetry 96 96 Oxygen Delivery Room Air 12/19/2519:00 12/19/2519:31 12/18/2520:00 Temperature Pulse Rate 86 86 Respiratory Rate Blood Pressure Pulse Oximetry 96 Oxygen Delivery Room Air 12/18/2521:00 12/18/2522:47 12/19/2499:00 Temperature 36.6 C Pulse Rate 71 84 84 Respiratory Rate 20 20 Blood Pressure 127/74 Pulse Oximetry 96 96 Oxygen Delivery Room Air 12/19/2499:00 12/19/2501:00 12/19/2502:33 Temperature 36.6 C Pulse Rate 84 61 75 Respiratory Rate 20 Blood Pressure 146/77 H Pulse Oximetry 100 Oxygen Delivery 12/20/2503:00 12/20/2503:00 12/19/2505:00 Temperature Pulse Rate 64 64 67 Respiratory Rate 20 Blood Pressure Pulse Oximetry 100 Oxygen Delivery Room Air 12/19/2506:42 Temperature 36.5 C Pulse Rate 76 Respiratory Rate 18 Blood Pressure 142/63 H Pulse Oximetry 99 Oxygen Delivery Intake/Output Intake/Output: Intake & Output 12/16/24 12/17/24 12/18/24 12/19/24 23:59 23:59 23:59 23:59 Intake Total 1000 1140 270 Output Total 750 1700 250 Balance 250 -560 20 Meds/Results Medications: Active Medications Generic Name Dose Route Start Last Admin Trade Name Freq PRN Reason Stop Dose Admin Acetaminophen 650 mg 12/17/24 14:57 12/17/24 23:58 Acetaminophen 325 Mg Tablet PO 650 mg Q4H PRN Administration Mild Pain (1-3) or Fever Hydrocodone Bitart/Acetaminophen 1 tab 12/17/24 14:57 12/18/24 21:00 Hydrocodone/Acetaminophen (*Crx) 5-325 Mg Tablet PO 1 tab Q4H PRN Administration Pain Rated 4-6 Amlodipine Besylate 10 mg 12/18/24 09:00 12/18/24 08:38 Amlodipine Besylate 10 Mg Tablet PO 10 mg DAILY JACKY Administration Aspirin 81 mg 12/18/24 09:00 12/18/24 08:38 Aspirin 81 Mg Enteric Tablet PO 81 mg QAM JACKY Administration Atorvastatin Calcium 80 mg 12/18/24 09:00 12/18/24 08:37 Atorvastatin 40 Mg Tablet PO 80 mg DAILY JACKY Administration Carvedilol 6.25 mg 12/17/24 22:10 12/18/24 21:00 Carvedilol 6.25 Mg Tablet PO 6.25 mg Q12HR JACKY Administration Cefuroxime Axetil 250 mg 12/19/24 09:00 Cefuroxime Axetil 250 Mg Tablet PO 12/23/24 21:01 Q12HR JACKY Clopidogrel Bisulfate 75 mg 12/18/24 09:00 12/18/24 08:38 Clopidogrel Bisulfate 75 Mg Tablet PO 75 mg DAILY JACKY Administration Dextrose 12.5 gm 12/17/24 22:11 Dextrose 50% 25 Gm/50 Ml Syringe IV PUSH PRN PRN Hypoglycemia Protocol Docusate Sodium 100 mg 12/18/24 09:00 12/18/24 17:31 Docusate Sodium 100 Mg Capsule PO 100 mg BID JACKY Administration Enoxaparin Sodium 30 mg 12/18/24 09:00 12/18/24 08:47 Enoxaparin 30 Mg/0.3 Ml Syringe SUB-Q 30 mg DAILY JACKY Administration Glipizide 2.5 mg 12/18/24 08:00 12/18/24 08:37 Glipizide Xl 2.5 Mg Tab.Er.24 PO 2.5 mg On Hold: 12/18/24 08:52 DAILY@0800 JACKY Administration Glucagon 1 mg 12/17/24 22:11 Glucagon For Inj 1 Mg Vial IM PRN PRN Hypoglycemia Protocol Glucose 15 gm 12/17/24 22:11 Glucose Oral Gel 15 Gm Of Glucse In 37.5 Gm Tube PO PRN PRN Hypoglycemia Protocol Hydrocortisone 1 applic 12/17/24 22:20 Hydrocortisone 2.5% Cream 30 Gm Tube RECTAL BID PRN hemorrhoids Dextrose 1,000 mls @ 100 mls/hr 12/17/24 22:11 Dextrose 5% 1,000 Ml IVPB PRN PRN Hypoglycemia Protocol Insulin Aspart 4 - 8 units 12/18/24 08:00 12/18/24 17:30 Insulin Aspart (*Bkc) 100 Units/Ml SUB-Q Not Given TIDWM JACKY Protocol Isosorbide Mononitrate 30 mg 12/18/24 14:10 12/18/24 14:32 Isosorbide Mononitrate 30 Mg Tab.Er.24h PO 30 mg QAM JACKY Administration Metronidazole 500 mg 12/19/24 08:40 Metronidazole 500 Mg Tablet PO 12/23/24 22:01 Q8HR JACKY Nitroglycerin 0.4 mg 12/17/24 16:04 Nitroglycerin Sl 0.4 Mg Tablet SUBLINGUAL Q5MIN PRN Chest Pain Ondansetron HCl 4 mg 12/17/24 14:57 Ondansetron Inj 4 Mg/2 Ml Vial IV PUSH Q4H PRN Nausea Pantoprazole Sodium 20 mg 12/18/24 09:00 12/18/24 08:38 Pantoprazole Sod Sesquihydrate 20 Mg Tab PO 20 mg QAM JACKY Administration Perflutren Lipid Microsphere 0 ml 12/18/24 08:52 Perflutren Lipid Microspheres 1.5 Ml Vial Diluted To 10 Ml Total Volume IV PUSH 12/21/24 08:53 ONCE PRN adequate visualization Protocol Polyethylene Glycol 17 gm 12/18/24 09:00 12/18/24 08:39 Polyethylene Glycol 3350 17 Gm Powd.Pack PO Not Given QAM [facility] Radiology Results: ITS Impressions Chest X-Ray 12/17/24 12:36 Impression: No acute cardiopulmonary abnormality. Abdomen/Pelvis CT 12/17/24 13:47 IMPRESSION: 1. Probable cystitis. 2. Mild probable proctitis. No perforation or abscess. 3. Incidental findings above ADDENDUM: 12/17/24 1354 There is a small fat-containing left periumbilical hernia, defect in the abdominal wall measures 1 cm, there is no complicated bowel in this location Venous Doppler Study 12/18/24 08:13 Impression: Negative for DVT. Labs Labs: Laboratory Results - last 24 hr 12/18/24 12/18/24 12/18/24 11:15 15:47 20:06 WBC RBC Hgb Hct MCV MCH MCHC RDW Plt Count MPV Immature Gran % (Auto) Neut % (Auto) Lymph % (Auto) [place]lin % (Auto) Eos % (Auto) Baso % (Auto) Lymph # (Auto) [place]lin # (Auto) Eos # (Auto) Baso # (Auto) Abs Immat Gran (auto) Absolute Neuts (auto) Absolute Nucleated RBC Band Neutrophils % Nucleated RBC % Platelet Estimate Hypochromasia Anisocytosis Ovalocytes Schistocytes Sodium Potassium Chloride Carbon Dioxide Anion Gap BUN Creatinine Estim Creat Clear Calc Estimated GFR Glucose POC Capillary Glucose 144 H 163 H 205 H Calcium 12/19/24 12/19/24 03:45 07:08 WBC 7.8 RBC 3.32 L Hgb 8.7 L Hct 30.0 L MCV 90.4 MCH 26.2 MCHC 29.0 L RDW 18.3 H Plt Count 233 MPV 9.8 Immature Gran % (Auto) 0.3 Neut % (Auto) 45.1 L Lymph % (Auto) 40.6 Hamlin % (Auto) 9.2 H Eos % (Auto) 4.5 H Baso % (Auto) 0.3 Lymph # (Auto) 3.17 [place]lin # (Auto) 0.7 H Eos # (Auto) 0.4 H Baso # (Auto) 0.0 Abs Immat Gran (auto) 0.02 Absolute Neuts (auto) 3.5 Absolute Nucleated RBC 0.000 Band Neutrophils % Not Reportable Nucleated RBC % 0.0 Platelet Estimate Adequate Hypochromasia 1+ Anisocytosis 1+ Ovalocytes 1+ Schistocytes None seen Sodium 135 L Potassium 5.1 H Chloride 107 Carbon Dioxide 21 L Anion Gap 7 BUN 40 H Creatinine 2.33 H Estim Creat Clear Calc 18 Estimated GFR 20 L Glucose 94 POC Capillary Glucose 120 H Calcium 8.7 Please be advised this is a medical document. It is intended for [id number] communication. It is written in medical language and may contain unfamiliar abbreviations or verbiage. Medical documents are intended to carry relevant information, facts as evident, and the clinical opinion of the practitioner at the time of the encounter. This report may have been done utilizing a voice recognition system. Attempts have been made to correct errors. However, there may be uncorrected grammatical, spelling, and recognition errors present. The file time of this note does not necessarily represent the time the patient was seen. Report Initialized date/time: [address] [facility] 12/19/24 / 0852 Electronically signed by: [id number] [facility] 12/19/24 0855 Brittany Maza MD 12/19/24 1132
[2024-12-19] MEDS: ENOXAPARIN 30 MG/0.3 ML SYRINGE SUB-Q (09:35)
[2024-12-19] MEDS: ASPIRIN 81 MG ENTERIC TABLET PO (09:35)
[2024-12-19] MEDS: CLOPIDOGREL BISULFATE 75 MG TABLET PO (09:35)
[2024-12-19] MEDS: SODIUM ZIRCONIUM CYCLOSILICATE 5 GM POWD.PACK PO (09:35)
[2024-12-19] MEDS: PANTOPRAZOLE SOD SESQUIHYDRATE 20 MG TAB PO (09:35)
[2024-12-19] MEDS: ATORVASTATIN 40 MG TABLET 80 MG PO (09:36)
[2024-12-19] MEDS: ISOSORBIDE MONONITRATE 30 MG TAB.ER.24H PO (09:36)
[2024-12-19] MEDS: DOCUSATE SODIUM 100 MG CAPSULE PO (09:36)
[2024-12-19] MEDS: FUROSEMIDE 20 MG TABLET PO (09:36)
--- NOTE | 2024-12-19 11:14 | P.CDI_ITS ---
CDI Query Clarification Request Please clarify acuity of heart failure if known. * Acute * Chronic * Acute on Chronic * Unknown Hospitalist has documented chronic CHF, while cardiology has documented acute CHF ER: Patient is an 79-year-old female who presents ER with chest pain. She had tightness and heaviness left chest yesterday that lasted for most the day but then went away in the evening. It returned today and is associated with nausea. It is also making her arms feel heavy. No abdominal pain. No fevers or chills or sweats. She is having normal bowel movements. Has history of coronary disease. H&P: patient had an NSTEMI in September of 2023, treated at [facility], with a peak troponin of 10.7. At that time cardiac catheterization was not pursued as she has a history of CKD stage 4 after risks and benefits were discussed with the patient and she was medically managed. Patient sees Delfino HAGAN for her cardiac care, she is unsure where he practices. She is on Plavix, not on anticoa gulation. Initial VS at presentation: 97.8? F, [place] 93, [place] [address]/72, and 96% on RA. ED workup showed: No leukocytosis, hemoglobin 9.5 (9.4 on 11/01/2024), potassium 5.3, creatinine 2.14 and GFR 22 (2.02 and GFR 24 on 11/01/2024), glucose 276, initial troponin negative, lipase negative, and UA showed 1+ protein and 2+ glucose otherwise unremarkable. CXR showed no acute cardiopulmonary abnormality. CT of the abdomen/pelvis showed probable cystitis, mild probable proctitis with no perforation or abscess, and incidental findings (see full report). Assessment and plan (1) Chest pain: Qualifiers: Chest pain type: unspecified Qualified Code(s): R07.9 - Chest pain, unspecified Code(s): R07.9 - Chest pain, unspecified Status: Acute Assessment and Plan: - EKG, initial: Sinus rhythm, rate 84, low QRS voltage in precordial leads - EKG, repeat (1): Electronic atrial pacemaker, ST-TU wave deviation are present and sinus rhythm no longer present. Awaiting formal read - CXR: No acute cardiopulmonary abnormality. - Troponin: <0.012 x3 - ASA 324 given -> continue 81 daily - SL nitro PRN - cardiology consulted, awaiting recs - most recent echo on 09/2023, see below - patient had significantly elevated troponins in September of 2023, peak troponin was 10.7. At that time cardiac catheterization was discussed (risks versus benefits) as she was at a higher risk for contrast induced nephropathy given her CKD stage 4, patient at that time did not wish to pursue cardiac catheterization. Later reconsidered, however her troponin was downtrending at that time and she had had no recurrence of chest pain and medical management of NSTEMI was pursued. - telemetry monitoring (3) CHF (congestive heart failure), NYHA class I: Qualifiers: Congestive heart failure chronicity: chronic Congestive heart failure type: diastolic Qualified Code(s): I50.32 - Chronic diastolic (congestive) heart failure Code(s): I50.9 - Heart failure, unspecified Status: Chronic Assessment and Plan: - most recent echo (09/2023): Systolic function normal, estimated EF 65-70%, hypokinesis of the mid inferoseptum, apical septum, apical cap, mid inferior wall, apical inferior, mid anteroseptum and grade 1 diastolic dysfunction. Mild valvular disease noted. See report for details. - not on daily diuretic - monitor I&Os and daily weights - trend renal function Plan Patient has asymmetric swelling of the lower extremities, left greater than right. Ultrasound ordered. Cardiology: Assessment and plan (1) CHF (congestive heart failure), NYHA class I: Qualifiers: Congestive heart failure chronicity: chronic Congestive heart failure type: diastolic Qualified Code(s): I50.32 - Chronic diastolic (congestive) heart failure Code(s): I50.9 - Heart failure, unspecified Status: Chronic Assessment and Plan: Acute diastolic heart failure (2) Chest pain: Qualifiers: Chest pain type: unspecified Qualified Code(s): R07.9 - Chest pain, unspecified Code(s): R07.9 - Chest pain, unspecified Status: Acute (3) Hypertension, essential: Code(s): I10 - Essential (primary) hypertension Status: Chronic Plan Diagnosis: Chest pain at rest-last echo in 2023 showed significant regional wall motion abnormalities with normal LVEF, troponin x3 negative during this admission CAD, NSTEMI in 2023 which was managed medically due to CKD Acute diastolic heart failure CKD stage 4 with creatinine 2.24 today; baseline creatinine varies between 2-3 Hyperlipidemia Hypertension Continue aspirin, Plavix, statin, glipizide, beta-sunny, amlodipine Sublingual nitro p.r.n. for chest pain Add Imdur 30 mg p.o. daily TTE Check and replace electrolytes to keep potassium greater than 4 and magnesium greater than 2 Lasix 40 mg IV once today Echo: Summary 1. Complete two-dimensional, color flow and Doppler transthoracic echocardiogram is performed. 2. Left ventricular chamber dimension is normal. 3. Left ventricular systolic function is normal, estimated at 55-60. 4. There is mildly increased left ventricular wall thickness. 5. The left ventricular diastolic function is grade I diastolic dysfunction. 6. Right ventricular chamber dimension is mildly enlarged. 7. Right ventricular systolic function is normal. 8. Right atrial chamber dimension is mildly enlarged. 9. There is mild mitral valve regurgitation. 10. There is mild tricuspid valve regurgitation. 11. No pulmonary hypertension, estimated pulmonary arterial systolic pressure is 27 mmHg. 12. There is small pericardial effusion. <Britta Clifford RN - Last Filed: 12/19/24 11:20> Please clarify acuity of heart failure if known. * Acute * Chronic * Acute on Chronic * Unknown Hospitalist has documented chronic CHF, while cardiology has documented acute CHF Chronic ER: Patient is an 79-year-old female who presents ER with chest pain. She had tightness and heaviness left chest yesterday that lasted for most the day but then went away in the evening. It returned today and is associated with nausea. It is also making her arms feel heavy. No abdominal pain. No fevers or chills or sweats. She is having normal bowel movements. Has history of coronary disease. H&P: patient had an NSTEMI in September of 2023, treated at [facility], with a peak troponin of 10.7. At that time cardiac catheterization was not pursued as she has a history of CKD stage 4 after risks and benefits were discussed with the patient and she was medically managed. Patient sees Delfino HAGAN for her cardiac care, she is unsure where he practices. She is on Plavix, not on anticoagulation. Initial VS at presentation: 97.8? F, HR 93, [place] [address]/72, and 96% on RA. ED workup showed: No leukocytosis, hemoglobin 9.5 (9.4 on 11/01/2024), potassium 5.3, creatinine 2.14 and GFR 22 (2.02 and GFR 24 on 11/01/2024), glucose 276, initial troponin negative, lipase negative, and UA showed 1+ protein and 2+ glucose otherwise unremarkable. CXR showed no acute cardiopulmonary abnormality. CT of the abdomen/pelvis showed probable cystitis, mild probable proctitis with no perforation or abscess, and incidental findings (see full report). Assessment and plan (1) Chest pain: Qualifiers: Chest pain type: unspecified Qualified Code(s): R07.9 - Chest pain, unspecified Code(s): R07.9 - Chest pain, unspecified Status: Acute Assessment and Plan: - EKG, initial: Sinus rhythm, rate 84, low QRS voltage in precordial leads - EKG, repeat (1): Electronic atrial pacemaker, ST-TU wave deviation are present and sinus rhythm no longer present. Awaiting formal read - CXR: No acute cardiopulmonary abnormality. - Troponin: <0.012 x3 - ASA 324 given -> continue 81 daily - SL nitro PRN - cardiology consulted, awaiting recs - most recent echo on 09/2023, see below - patient had significantly elevated troponins in September of 2023, peak troponin was 10.7. At that time cardiac catheterization was discussed (risks versus benefits) as she was at a higher risk for contrast induced nephropathy given her CKD stage 4, patient at that time did not wish to pursue cardiac catheterization. Later reconsidered, however her troponin was downtrending at that time and she had had no recurrence of chest pain and medical management of NSTEMI was pursued. - telemetry monitoring (3) CHF (congestive heart failure), NYHA class I: Qualifiers: Congestive heart failure chronicity: chronic Congestive heart failure type: diastolic Qualified Code(s): I50.32 - Chronic diastolic (congestive) heart failure Code(s): I50.9 - Heart failure, unspecified Status: Chronic Assessment and Plan: - most recent echo (09/2023): Systolic function normal, estimated EF 65-70%, hypokinesis of the mid inferoseptum, apical septum, apical cap, mid inferior wall, apical inferior, mid anteroseptum and grade 1 diastolic dysfunction. Mild valvular disease noted. See report for details. - not on daily diuretic - monitor I&Os and daily weights - trend renal function Plan Patient has asymmetric swelling of the lower extremities, left greater than right. Ultrasound ordered. Cardiology: Assessment and plan (1) CHF (congestive heart failure), NYHA class I: Qualifiers: Congestive heart failure chronicity: chronic Congestive heart failure type: diastolic Qualified Code(s): I50.32 - Chronic diastolic (congestive) heart failure Code(s): I50.9 - Heart failure, unspecified Status: Chronic Assessment and Plan: Acute diastolic heart failure (2) Chest pain: Qualifiers: Chest pain type: unspecified Qualified Code(s): R07.9 - Chest pain, unspecified Code(s): R07.9 - Chest pain, unspecified Status: Acute (3) Hypertension, essential: Code(s): I10 - Essential (primary) hypertension Status: Chronic Plan Diagnosis: Chest pain at rest-last echo in 2023 showed significant regional wall motion abnormalities with normal LVEF, troponin x3 negative during this admission CAD, NSTEMI in 2023 which was managed medically due to CKD Acute diastolic heart failure CKD stage 4 with creatinine 2.24 today; baseline creatinine varies between 2-3 Hyperlipidemia Hypertension Continue aspirin, Plavix, statin, glipizide, beta-sunny, amlodipine Sublingual nitro p.r.n. for chest pain Add Imdur 30 mg p.o. daily TTE Check and replace electrolytes to keep potassium greater than 4 and magnesium greater than 2 Lasix 40 mg IV once today Echo: Summary 1. Complete two-dimensional, color flow and Doppler transthoracic echocardiogram is performed. 2. Left ventricular chamber dimension is normal. 3. Left ventricular systolic function is normal, estimated at 55-60. 4. There is mildly increased left ventricular wall thickness. 5. The left ventricular diastolic function is grade I diastolic dysfunction. 6. Right ventricular chamber dimension is mildly enlarged. 7. Right ventricular systolic function is normal. 8. Right atrial chamber dimension is mildly enlarged. 9. There is mild mitral valve regurgitation. 10. There is mild tricuspid valve regurgitation. 11. No pulmonary hypertension, estimated pulmonary arterial systolic pressure is 27 mmHg. 12. There is small pericardial effusion. <Bere Coe MD - Last Filed: 12/19/24 13:27>
--- NOTE | 2024-12-19 13:45 | P.DS_ITS ---
DS: Admitting Diagnosis Discharge Date 12/19/24 Admitting Diagnosis Chest pain DS: Discharge Diagnosis Discharge Diagnosis (1) Hypertension, essential: Code(s): I10 - Essential (primary) hypertension Status: Chronic (2) CHF (congestive heart failure), NYHA class I: Qualifiers: Congestive heart failure type: diastolic Congestive heart failure chronicity: chronic Qualified Code(s): I50.32 - Chronic diastolic (congestive) heart failure Code(s): I50.9 - Heart failure, unspecified Status: Chronic (3) H/O heart artery stent: Code(s): Z95.5 - Presence of coronary angioplasty implant and graft Status: Acute (4) Coronary artery disease: Qualifiers: Coronary Disease-Associated Artery/Lesion type: unspecified vessel or lesion type [place] vs. transplanted heart: [place] heart Associated angina: with unspecified form of angina Qualified Code(s): I25.119 - Atherosclerotic heart disease of [place] coronary artery with unspecified angina pectoris Code(s): I25.10 - Atherosclerotic heart disease of [place] coronary artery without angina pectoris Status: Acute (5) Chest pain: Code(s): R07.9 - Chest pain, unspecified Status: Acute DS: Summary Hospital Course Reason for hospitalization: Chest pain Hospital Course: 79-year-old female with history of congestive heart failure, pulmonary hypertension, CAD, NSTEMI in 2023 treated at [facility] (peak troponin tr oponin was 10.7, cardiac catheterization was not done due to CKD stage 4 and she was medically managed), hyperlipidemia, hypertension, P 80, type 2 diabetes mellitus, chronic pancreatitis, diabetic peripheral neuropathy, CKD stage 4, anemia presents with chief complaints of chest pain. She presented to the ER yesterday from home via EMS for further evaluation of chest pain.Troponin X 3-. EKG shows sinus rhythm and low-voltage QRS in precordial leads. Creatinine is elevated 2.24. Cardiology was consulted for further management. Advised for conservative management as per Cardiology, continued with aspirin, Plavix, beta- sunny, statin. Was added Imdur. Patient has history of chronic kidney disease, advised to follow-up with nephrology as an outpatient. Discontinued glipizide prior to discharge. Patient is being discharged home with spouse in stable condition. Status at Discharge Functional status at discharge: independent ambulation Overall status at discharge: patient is progressing back to baseline Time Spent with Patient Time attestation: Total time spent providing and/or coordinating discharge services: Exam Const: General: comfortable and no acute distress Other: , female, elderly, nontoxic appearance HENMT: Face/Nose/Sinus: Normal nares present Mouth: Yes moist mucous membranes Eyes: General: appearance normal, both eyes and all related structures Sclera: sclerae normal Pupils: Equal, round and reactive pupils present EOM: EOMs intact bilaterally Resp: Effort & Inspection: normal respiratory effort Auscultation: clear to auscultation bilaterally Cardio: Rate: regular rate Rhythm: regular rhythm Other: S1-S2 present without murmur, rub, ectopy GI: Other: Abdomen soft, nondistended, nontender. Normoactive bowel sounds in all quadrants. Skin: General skin exam: normal color and no rashes or lesions noted Wounds: no wounds Neuro: Speech: normal speech Motor exam (neuro): 5/5 motor strength present throughout Sensory Exam: normal sensation Other: A&O x4 Extrem: Other: LLE slightly more edematous than the RLE. 2+ edema, non pitting to BLE. Psych: Mental Status: mental status grossly normal Affect: normal affect Other: Good insight and judgment, pleasant DS: Data Data Completed and Pending Labs on day of discharge: Labs from last 24 hours 12/19/24 12/19/24 12/19/24 11:31 07:08 03:45 WBC 7.8 RBC 3.32 L Hgb 8.7 L Hct 30.0 L MCV 90.4 MCH 26.2 MCHC 29.0 L RDW 18.3 H Plt Count 233 MPV 9.8 Immature Gran % (Auto) 0.3 Neut % (Auto) 45.1 L Lymph % (Auto) 40.6 [place] % (Auto) 9.2 H Eos % (Auto) 4.5 H Baso % (Auto) 0.3 Lymph # (Auto) 3.17 [place] # (Auto) 0.7 H Eos # (Auto) 0.4 H Baso # (Auto) 0.0 Abs Immat Gran (auto) 0.02 Absolute Neuts (auto) 3.5 Absolute Nucleated RBC 0.000 Band Neutrophils % Not Reportable Nucleated RBC % 0.0 Platelet Estimate Adequate Hypochromasia 1+ Anisocytosis 1+ Ovalocytes 1+ Schistocytes None seen Sodium 135 L Potassium 5.1 H Chloride 107 Carbon Dioxide 21 L Anion Gap 7 BUN 40 H Creatinine 2.33 H Estim Creat Clear Calc 18 Estimated GFR 20 L Glucose 94 POC Capillary Glucose 144 H 120 H Calcium 8.7 12/18/24 12/18/24 20:06 15:47 WBC RBC Hgb Hct MCV MCH MCHC RDW Plt Count MPV Immature Gran % (Auto) Neut % (Auto) Lymph % (Auto) [place] % (Auto) Eos % (Auto) Baso % (Auto) Lymph # (Auto) [place] # (Auto) Eos # (Auto) Baso # (Auto) Abs Immat Gran (auto) Absolute Neuts (auto) Absolute Nucleated RBC Band Neutrophils % Nucleated RBC % Platelet Estimate Hypochromasia Anisocytosis Ovalocytes Schistocytes Sodium Potassium Chloride Carbon Dioxide Anion Gap BUN Creatinine Estim Creat Clear Calc Estimated GFR Glucose POC Capillary Glucose 205 H 163 H Calcium Discharge Plan Discharge Attending physician on discharge: Bere Coe Consulting providers: Andrae Jarquin Discharging Clinician: Bere Coe Anticipated Discharge Date/Time: 12/19/24 13:41 Patient Disposition: Home Activity: as tolerated Diet: heart healthy Patient Instructions: Antibiotic Form Patient Language: Kinyarwanda Stand Alone Forms: General Discharge Information Follow-up/Referrals: Andrae Jarquin MD [Physician, Cardiology] - 3 Weeks Martir Esquivel MD [Primary Care Provider, Family Practice] - 2 Weeks Discharge Medications: New isosorbide mononitrate 30 mg Tablet Extended Release 24 Hr 30 mg PO QAM Qty: 30 0RF metronidazole 500 mg Tablet 500 mg PO Q8HR Qty: 14 0RF cefuroxime axetil 250 mg Tablet 250 mg PO Q12HR Qty: 9 0RF furosemide 20 mg Tablet 20 mg PO DAILY Qty: 30 0RF Continued (DME) FreeStyle Ronal 2 [place] Misc See Rx Instructions .Route Qty: 1 0RF Rx Instructions: As directed pantoprazole 20 mg tablet,delayed release (DR/EC) 20 mg PO QAM Qty: 90 1RF sertraline 25 mg tablet 25 mg PO DAILY Qty: 30 0RF triamcinolone acetonide 0.1 % cream 1 applic topical TID Qty: 30 0RF Rx Instructions: apply externally 2-3 times per day as needed until symptoms resolve hydrocortisone 2.5 % cream with perineal applicator 1 applic RECTAL BID PRN (Reason: hemorrhoids) Qty: 30 0RF (DME) FreeStyle Ronal 2 Sensor Kit See Rx Instructions .ROUTE .MEDSUPPLY Qty: 6 3RF Rx Instructions: As directed polyethylene glycol 3350 [Miralax] 17 gram Powder In Packet 17 g PO QAM Qty: 30 0RF Linzess 145 mcg Capsule 145 mcg PO DAILY@0630 Qty: 30 0RF aspirin [Adult Aspirin Regimen] 81 mg tablet,delayed release (DR/EC) 81 mg PO DAILY Qty: 30 1RF ondansetron 4 mg tablet,disintegrating 4 mg PO Q6H PRN (Reason: nausea and vomiting) Qty: 10 0RF docusate sodium 100 mg capsule 100 mg PO BID amlodipine 10 mg tablet See Rx Instructions .ROUTE .COMPLEX Qty: 90 1RF Dose Instruction: Take 1 tablet by mouth once daily Rx Instructions: Take 1 tablet by mouth once daily clopidogrel 75 mg tablet See Rx Instructions .ROUTE .COMPLEX Qty: 30 1RF Dose Instruction: TAKE 1 TABLET BY MOUTH IN THE MORNING Rx Instructions: TAKE 1 TABLET BY MOUTH IN THE MORNING atorvastatin 80 mg tablet See Rx Instructions .ROUTE .COMPLEX Qty: 90 1RF Dose Instruction: Take 1 tablet by mouth once daily Rx Instructions: Take 1 tablet by mouth once daily carvedilol 6.25 mg tablet See Rx Instructions .ROUTE .COMPLEX Qty: 60 1RF Dose Instruction: TAKE 1 TABLET BY MOUTH EVERY 12 HOURS Rx Instructions: TAKE 1 TABLET BY MOUTH EVERY 12 HOURS acetaminophen [Tylenol] 325 mg capsule 650 mg PO Q6H PRN (Reason: pain) Qty: 30 0RF Discontinued glipizide 2.5 mg tablet extended release 24hr See Rx Instructions .ROUTE .COMPLEX Qty: 90 0RF Dose Instruction: Take 1 tablet by mouth once daily Rx Instructions: Take 1 tablet by mouth once daily Date of admission: 12/18/24 14:16 Primary Care Provider: Martir Esquivel Admitting Provider: Chandler Garzon Attending physician on admission: Chandler Garzon Condition: Stable
== END 2024-12-19 16:03 | disposition home or self-care (01) | DRG 313 ==
LOC: ANHED 12:33 → ANHIMU 15:34
PROVIDERS: Family Medicine; Student in an Organized Health Care Education/Training Program; Admitting Provider General Practice; Emergency Provider Emergency Medicine; PCP Family Medicine; Visit Provider Internal Medicine
DX: R07.9 Chest pain, unspecified (principal); I50.32 Chronic diastolic (congestive) heart failure; I13.0 Hypertensive heart and chronic kidney disease with heart failure and stage 1 through stage 4 chronic kidney disease, or unspecified chronic kidney disease; N18.4 Chronic kidney disease, stage 4 (severe); I25.10 Atherosclerotic heart disease of native coronary artery without angina pectoris; E11.22 Type 2 diabetes mellitus with diabetic chronic kidney disease; E78.5 Hyperlipidemia, unspecified; I27.20 Pulmonary hypertension, unspecified; R60.0 Localized edema; E11.65 Type 2 diabetes mellitus with hyperglycemia; E11.42 Type 2 diabetes mellitus with diabetic polyneuropathy; I73.9 Peripheral vascular disease, unspecified; R61 Generalized hyperhidrosis; K62.89 Other specified diseases of anus and rectum; K42.9 Umbilical hernia without obstruction or gangrene; N30.90 Cystitis, unspecified without hematuria; Z87.19 Personal history of other diseases of the digestive system; Z90.49 Acquired absence of other specified parts of digestive tract; Z79.82 Long term (current) use of aspirin; Z95.5 Presence of coronary angioplasty implant and graft; Z79.02 Long term (current) use of antithrombotics/antiplatelets; I25.2 Old myocardial infarction; Z79.84 Long term (current) use of oral hypoglycemic drugs
CPT/HCPCS: 36415; 71046; 74176; 80048; 80053; 81001; 82948; 83690; 84484; 85025; 85610; 85730; 93005; 93306; 93971; 99285; A9270; G0378; J1650; J7030

== ENCOUNTER 2025-01-11 01:52 | Emergency (ER) | payer MEDICARE, SELFPAY ==
--- NOTE | ~2025-01-11 | XR_ITS ---
Examination: XR chest 2V Clinical History: chest pain Comparison: 12/17/2024 Technique: PA and Lateral Findings: Unchanged cardiomegaly. Lungs clear. No acute bony abnormality. IMPRESSION: 1. No acute cardiopulmonary findings. Reviewed, dictated and finalized at location R.
[2025-01-11 01:56] VITALS: BP 155/68; PULSE 87; RESP 20; TEMP 36.7; O2SAT 99
--- NOTE | 2025-01-11 02:01 | ECG_ITS ---
Test Date: 2025-01-11 09:01:03 Measurements Intervals [place] Rate: 71 P: 41 DE: 176 QRS: 22 QRSD: 62 T: 33 QT: 376 QTc: 411 Interpretive Statements SINUS RHYTHM CONSIDER INFERIOR INFARCT, AGE INDETERMINATE ABNORMAL ECG Compared to ECG 12/18/2024 02:49:46 No significant changes Electronically Signed On 01-11-2025 10:09:30 CDT by Darnell Ames D.O.
[2025-01-11 02:21] LABS: Hematocrit 33.8 % (37.0-47.0); Hemoglobin 10.1 g/dL (12.0-15.0); Immature Granulocyte Percent A 0.6 % (0-0.5); Lymphocytes Absolute Auto 2.18 K/mm3 (0.9-3.2); Mean Corpuscular HGB Conc 29.9 g/dl (32-36); Mean Corpuscular Hemoglobin 26.2 pg (26-34); Mean Corpuscular Volume 87.8 fl (80-100); Nucleated Red Blood Cells Absolute Auto 0.000 K/mm3 (0.0-0.012); Nucleated Red Blood Cells Perc 0.0 % (0.0-0.2); Platelet Count Result 305 k/mm3 (150-375); Red Blood Count 3.85 M/mm3 (4.2-5.4); White Blood Count 9.1 K/mm3 (4.5-10.0)
[2025-01-11 02:33] LABS: Alanine Aminotransferase 14 U/L (6-35); Albumin Level 3.8 g/dL (3.5-5.1); Alkaline Phosphatase 172 U/L (38-126); Anion Gap 11 mmol/L (4-12); Aspartate Amino Transferase 21 U/L (14-36); Bilirubin,Total 0.2 mg/dL (0.2-1.3); Blood Urea Nitrogen 59 mg/dL (7-17); Calcium 8.9 mg/dL (8.4-10.2); Carbon Dioxide 22 mmol/L (22-30); Chloride 106 mmol/L (98-107); Estimated CRCL calculation 17 ml/min; Estimated Glomerular Filt Rate 18; Glucose 223 mg/dL (65-110); Lipase 118 U/L (23-300); Potassium 5.0 mmol/L (3.4-5.0); Sodium 139 mmol/L (137-145); Total Protein 7.2 g/dL (6.3-8.2)
[2025-01-11 02:34] LABS: INR 0.9; Prothrombin Time 12.2 Seconds (11.1-14.7)
[2025-01-11 02:35] LABS: Partial Thromboplastin Time 26.6 Seconds (22.3-36.8)
[2025-01-11 02:39] LABS: Anisocytosis 1+
[2025-01-11 02:41] LABS: Poikilocytosis 1+; Schistocytes None Seen
[2025-01-11 02:42] LABS: Hypochromasia Occasional
[2025-01-11 02:43] LABS: Troponin I < 0.012 ng/mL (0.000-0.034)
--- NOTE | 2025-01-11 07:34 | ED.GENADULT ---
HPI - General Adult General Chief complaint: Chest Pain Stated complaint: chest pain Time Seen by Provider: 01/11/25 07:03 History of Present Illness HPI narrative: 79-year-old female with history of coronary artery disease, CHF, hypertension, high cholesterol, diabetes, peripheral arterial disease presented to the emergency department for evaluation for chest pain that started her left chest last night approximately 11:00 p.m. last until about 1:00 a.m.. Patient states the pain started her left chest and then radiated down into her right upper quadrant. Patient states that the symptoms have since resolved. Patient denies any chest pressure or chest tightness. Patient denies any radiation of the pain to her arm or to her neck. Patient did take her isosorbide mononitrate last night. Patient does have history Angiocath approximately 2 years ago does have [address] Patient follows up with Cardiology and [place]. Patient also does report history of chronic stomach pain. Related Data Allergies Allergy/AdvReac Type Severity Reaction Status Date / Time codeine Allergy Intermediate Rash Verified 12/17/24 13:59 Penicillins Allergy Intermediate Rash Verified 12/17/24 13:59 Sulfa (Sulfonamide Allergy Intermediate cheeks get Verified 12/17/24 13:59 Antibiotics) really red hydroxyzine (From Atarax) AdvReac Unknown deep sleep Verified 12/17/24 13:59 mulberry Allergy Mild Rash Uncoded 12/15/24 10:24 Review of Systems Review of Systems: All systems reviewed & are unremarkable except as noted in HPI and below PMFSH Past Medical History Medical History Chronic pancreatitis Diverticulosis Nausea and vomiting Rectal pain Encounter for immunization Neurocognitive disorder Intertrochanteric fracture of left hip Psychogenic formication Pulmonary HTN Metabolic acidosis NATE (acute kidney injury) Sepsis CHF (congestive heart failure), NYHA class I Anemia Postmenopausal Chronic kidney disease, stage 4 (severe) Coronary artery disease involving [place] heart without angina pectoris Diabetic peripheral neuropathy Hyperlipidemia, unspecified Hypertension, essential Thrombosed external hemorrhoid Type 2 diabetes mellitus with hyperglycemia PAD (peripheral artery disease) Surgical History Surgical History History of hip surgery with femur H/O heart artery stent X3 Hx of tonsillectomy History of cholecystectomy Laparoscopic cholecystectomy Family History Family History Mother Family history of cardiovascular disease Diabetes mellitus Cerebrovascular accident Father Myocardial infarction Sibling Congestive heart failure Colon cancer Other Hypertension Social History Social History Social History: The patient had 3 children. 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 Her Trey is the durable power patent prosecution attorney for healthcare. The patient is a full code. Who is a lifelong nonsmoker. She does not use any alcohol marijuana or illicit drugs. Code status full code Smoking status: Never smoker Second hand tobacco smoke exposure: No Alcohol intake: never Substance use: never Substance use type: does not use Do You Feel Safe in your Home?: Yes Lack of Transportation: No Lack of Food: Never True Current Housing: I Have Housing Concerned About Future Housing: No Difficulty Paying Gas/Electric Bills: No Difficulty Paying for Meds: No Currently Unemployed: No Education: High School Diploma/GED Difficulty w/ Childcare or Family Care: No Living arrangements: with family Occupation/Education: retired Gender identity (if verbalized by the patient): Female Sexual Orientation (if Verbalized by the Patient): Straight or Heterosexual Spiritual care concerns: No Agree to blood products: Yes Exam Narrative: APPEARANCE: Well appearing, no pain, no distress, well-nourished. HEAD: normocephalic, atraumatic. EYES: PERRLA/EOMI, conjunctivae clear. NOSE: Normal no drainage EARS:TMS clear with good light reflex. THROAT: Pharynx clear, no exudate. NECK: Supple. No adenopathy, no masses. RESPIRATORY: Airway patent, respirations nonlabored. Clear to auscultation bilaterally, no rales, rhonchi, wheezing. CARDIOVASCULAR: Regular rate and rhythm without murmurs rubs or gallops. ABDOMINAL: Soft, nontender, nondistended, normal bowel sounds MUSCULOSKELETAL: Moves all extremities. Strength/ROM intact, No edema, No calf tenderness. NEURO: Alert. Cranial nerves II through XII intact. Good gait. Good coordination SKIN: Warm, dry. Normal Color Course Vital Signs Vital signs: Vital Signs Temperature 98.0 F 01/11/25 01:56 Pulse Rate 87 01/11/25 01:56 Respiratory Rate 20 01/11/25 01:56 Blood Pressure 155/68 H 01/11/25 01:56 Pulse Oximetry 99 01/11/25 01:56 Temperature 98.0 F 01/11/25 01:56 Pulse Rate 85 01/11/25 10:02 Respiratory Rate 20 01/11/25 10:02 Blood Pressure 174/95 H 01/11/25 10:02 Pulse Oximetry 99 01/11/25 10:02 Oxygen Delivery Room Air 01/11/25 06:55 Medical Decision Making MDM Narrative Medical decision making narrative: 79-year-old female present to the emergency department for evaluation for chest pain. Patient had approximate 2 hours of chest pain. At time of initial evaluation patient states her symptoms have resolved. Patient has been pain-free since 1:00 a.m. so centrally the last 6 hours she has been symptom-free. Patient is currently afebrile with no leukocytosis and hemoglobin of 10.1. INR 0.9. Patient does have a creatinine of 2.62 which is similar to her previous values. Patient's initial troponin was negative. Chest x-ray shows no acute cardiopulmonary abnormalities. Initial EKG showed normal sinus rhythm with no evidence of acute infarction. Patient's pain resolved at approximately 1:00 a.m. and 8 hours after resolution of pain patient's troponins are not elevated. Patient was updated results of the workup. Patient did have a mild increase in her troponin but is still within normal limits. Patient was offered admission for further cardiac rule out the patient strongly prefers to have outpatient follow-up. Patient did request a refill on her nystatin for her oral thrush. Differential Diagnosis Differential Diagnosis: Pneumonia, RSV, COVID, influenza, ACS, CHF Vital Signs Vital Signs: Vital Signs Temperature 98.0 F 01/11/25 01:56 Pulse Rate 87 01/11/25 01:56 Respiratory Rate 20 01/11/25 01:56 Blood Pressure 155/68 H 01/11/25 01:56 Pulse Oximetry 99 01/11/25 01:56 Temperature 98.0 F 01/11/25 01:56 Pulse Rate 85 01/11/25 10:02 Respiratory Rate 20 01/11/25 10:02 Blood Pressure 174/95 H 01/11/25 10:02 Pulse Oximetry 99 01/11/25 10:02 Oxygen Delivery Room Air 01/11/25 06:55 Lab Data Lab results reviewed: Yes I reviewed the patient's lab results. 01/11/25 02:15 01/11/25 02:15 Labs: Lab Results 01/11/25 01/11/25 01/11/25 Range/Units 02:15 07:07 08:38 WBC 9.1 (4.5-10.0) K/mm3 RBC 3.85 L (4.2-5.4) M/mm3 Hgb 10.1 L (12.0-15.0) g/dL Hct 33.8 L (37.0-47.0) % MCV 87.8 (80-100) fl MCH 26.2 (26-34) pg MCHC 29.9 L (32-36) g/dl RDW 18.3 H (11.5-14.5) % Plt Count 305 (150-375) k/mm3 MPV 9.3 (7.4-10.4) fl Immature Gran % (Auto) 0.6 H (0-0.5) % Neut % (Auto) 64.9 (45.5-73.1) % Lymph % (Auto) 24.0 (18.3-44.2) % [place] % (Auto) 7.7 (2.6-8.5) % Eos % (Auto) 2.5 (0-4.4) % Baso % (Auto) 0.3 (0.2-1.2) % Lymph # (Auto) 2.18 (0.9-3.2) K/mm3 [place] # (Auto) 0.7 H (0.1-0.6) K/mm3 Eos # (Auto) 0.2 (0-0.3) K/mm3 Baso # (Auto) 0.0 (0.0-0.1) K/mm3 Abs Immat Gran (auto) 0.05 H (0.00-0.031) K/mm3 Absolute Neuts (auto) 5.9 (1.3-6.7) K/mm3 Absolute Nucleated RBC 0.000 (0.0-0.012) K/mm3 Band Neutrophils % Not Reportable Nucleated RBC % 0.0 (0.0-0.2) % Platelet Estimate Adequate (Adequate) Hypochromasia Occasional Poikilocytosis 1+ Anisocytosis 1+ Schistocytes None seen PT 12.2 (11.1-14.7) Seconds INR 0.9 APTT 26.6 (22.3-36.8) Seconds Sodium 139 (137-145) mmol/L Potassium 5.0 (3.4-5.0) mmol/L Chloride 106 (98-107) mmol/L Carbon Dioxide 22 (22-30) mmol/L Anion Gap 11 (4-12) mmol/L BUN 59 H D (7-17) mg/dL Creatinine 2.62 H (0.7-1.0) mg/dL Estim Creat Clear Calc 17 ml/min Estimated GFR 18 L (59 - ) Glucose 223 H (65-110) mg/dL Calcium 8.9 (8.4-10.2) mg/dL Total Bilirubin 0.2 (0.2-1.3) mg/dL AST 21 (14-36) U/L ALT 14 (6-35) U/L Alkaline Phosphatase 172 H (38-126) U/L Troponin I < 0.012 0.022 D 0.025 (0.000-0.034) ng/mL Total Protein 7.2 (6.3-8.2) g/dL Albumin 3.8 (3.5-5.1) g/dL Lipase 118 (23-300) U/L Imaging Data My impression: Chest x-ray: No acute cardiopulmonary abnormality Radiologist's impression: Impressions Chest X-Ray 01/11/25 07:00 IMPRESSION: 1. No acute cardiopulmonary findings. ECG Data EKG #1: EKG Interpretation: normal rate, sinus rhythm, no ectopy, non-specific ST changes, normal QRS, NL axis and no acute changes Discharge Plan Discharge Clinical Impression: Chest pain Patient Disposition: Home Condition: Stable Instructions: Antibiotic Form, Chest Pain (ED) Additional Instructions: You were offered admission for further cardiac workup but your preferred to be discharged home. I do recommend close follow-up with your primary care physician and feather mixer for additional cardiac workup. If you have any worsening symptoms please call or return to the emergency department. You are also being provided a refill for your oral nystatin. Patient Language: Chinese Prescriptions: New nystatin 100,000 unit/mL suspension 1 ml PO QID 10 Days Qty: 40 0RF Rx Instructions: swish and swallow No Action pantoprazole 20 mg tablet,delayed release (DR/EC) 20 mg PO QAM Qty: 90 1RF sertraline 25 mg tablet 25 mg PO DAILY Qty: 30 0RF triamcinolone acetonide 0.1 % cream 1 applic topical TID Qty: 30 0RF Rx Instructions: apply externally 2-3 times per day as needed until symptoms resolve polyethylene glycol 3350 [Miralax] 17 gram Powder In Packet 17 g PO QAM Qty: 30 0RF Linzess 145 mcg Capsule 145 mcg PO DAILY@0630 Qty: 30 0RF aspirin [Adult Aspirin Regimen] 81 mg tablet,delayed release (DR/EC) 81 mg PO DAILY Qty: 30 1RF ondansetron 4 mg tablet,disintegrating 4 mg PO Q6H PRN (Reason: nausea and vomiting) Qty: 10 0RF cefuroxime axetil 250 mg Tablet 250 mg PO Q12HR Qty: 9 0RF isosorbide mononitrate 30 mg Tablet Extended Release 24 Hr 30 mg PO QAM Qty: 30 0RF metronidazole 500 mg Tablet 500 mg PO Q8HR Qty: 14 0RF furosemide 20 mg Tablet 20 mg PO DAILY Qty: 30 0RF amlodipine 10 mg tablet See Rx Instructions .ROUTE .COMPLEX Qty: 90 1RF Dose Instruction: Take 1 tablet by mouth once daily Rx Instructions: Take 1 tablet by mouth once daily atorvastatin 80 mg tablet See Rx Instructions .ROUTE .COMPLEX Qty: 90 1RF Dose Instruction: Take 1 tablet by mouth once daily Rx Instructions: Take 1 tablet by mouth once daily carvedilol 6.25 mg tablet See Rx Instructions .ROUTE .COMPLEX Qty: 60 1RF Dose Instruction: TAKE 1 TABLET BY MOUTH EVERY 12 HOURS Rx Instructions: TAKE 1 TABLET BY MOUTH EVERY 12 HOURS clopidogrel 75 mg tablet See Rx Instructions .ROUTE .COMPLEX Qty: 30 0RF Dose Instruction: TAKE 1 TABLET BY MOUTH IN THE MORNING Rx Instructions: TAKE 1 TABLET BY MOUTH IN THE MORNING hydrocortisone [Procto-Med HC] 2.5 % cream with perineal applicator See Rx Instructions .ROUTE .COMPLEX Qty: 28 0RF Dose Instruction: APPLY CREAM RECTALLY TWICE DAILY FOR HEMORRHOIDS NEEDED Rx Instructions: APPLY CREAM RECTALLY TWICE DAILY FOR HEMORRHOIDS NEEDED (DME) Kitchensurfinge 3 Plus Sensor Device See Rx Instructions .Route Qty: 6 0RF Rx Instructions: change every 15 days docusate sodium [[place] Liqui-Gels] 100 mg capsule See Rx Instructions .ROUTE .COMPLEX Qty: 90 0RF Dose Instruction: TAKE 1 CAPSULE BY MOUTH THREE TIMES DAILY Rx Instructions: TAKE 1 CAPSULE BY MOUTH THREE TIMES DAILY acetaminophen [Tylenol] 325 mg capsule 650 mg PO Q6H PRN (Reason: pain) Qty: 30 0RF Follow-up/Referrals: Martir Esquivel MD [Primary Care Provider, Family Practice]
[2025-01-11 07:41] LABS: Troponin I 0.022 ng/mL (0.000-0.034)
[2025-01-11 08:14] VITALS: BP 137/69; PULSE 88; RESP 16; O2SAT 99
--- NOTE | 2025-01-11 08:49 | ECG_ITS ---
Test Date: 2025-01-11 02:09:01 Measurements Intervals [place] Rate: 83 P: 20 SD: 167 QRS: 22 QRSD: 70 T: 34 QT: 357 QTc: 420 Interpretive Statements SINUS RHYTHM LOW QRS VOLTAGE IN PRECORDIAL LEADS BASELINE ARTIFACT- I, II, III, AVR, AVL, AVF, V1-V6 BORDERLINE ECG Compared to ECG 12/18/2024 02:49:46 No significant changes Electronically Signed On 01-11-2025 10:11:26 CDT by Darnell Ames D.O.
[2025-01-11 09:13] LABS: Troponin I 0.025 ng/mL (0.000-0.034)
[2025-01-11 10:02] VITALS: BP 174/95; PULSE 85; RESP 20; O2SAT 99
== END 2025-01-11 10:23 | disposition home or self-care (01) ==
PROVIDERS: Student in an Organized Health Care Education/Training Program; Emergency Provider Emergency Medicine; PCP Family Medicine
DX: R07.9 Chest pain, unspecified (principal); I11.0 Hypertensive heart disease with heart failure; I13.10 Hypertensive heart and chronic kidney disease without heart failure, with stage 1 through stage 4 chronic kidney disease, or unspecified chronic kidney disease; E11.22 Type 2 diabetes mellitus with diabetic chronic kidney disease; N18.4 Chronic kidney disease, stage 4 (severe); E11.51 Type 2 diabetes mellitus with diabetic peripheral angiopathy without gangrene; I73.9 Peripheral vascular disease, unspecified; E11.42 Type 2 diabetes mellitus with diabetic polyneuropathy; I27.20 Pulmonary hypertension, unspecified; I25.10 Atherosclerotic heart disease of native coronary artery without angina pectoris; E78.00 Pure hypercholesterolemia, unspecified; K86.1 Other chronic pancreatitis; R41.9 Unspecified symptoms and signs involving cognitive functions and awareness; Z95.5 Presence of coronary angioplasty implant and graft; Z79.82 Long term (current) use of aspirin; Z79.899 Other long term (current) drug therapy; Z79.02 Long term (current) use of antithrombotics/antiplatelets; R94.31 Abnormal electrocardiogram [ECG] [EKG]
CPT/HCPCS: 36415; 71046; 80053; 83690; 84484; 85025; 85610; 85730; 93005; 99284

== ENCOUNTER 2025-04-03 03:12 | Emergency (ER) | payer MEDICARE, SELFPAY ==
[2025-04-03] VITALS (11 sets, daily range): BP systolic 147–182; BP diastolic 71–94; PULSE 67–80; RESP 15–21; TEMP 36.6; O2SAT 99–100
--- NOTE | ~2025-04-03 | XR_ITS ---
EXAMINATION: XR chest 2V 04/03/2025 04:11 INDICATION: Left-sided chest pain PROCEDURE: AP and lateral views of the chest COMPARISON: Comparison to multiple prior studies sequentially, with oldest reviewed study dated 09/25/2024. FINDINGS: The lungs are clear. The cardiomediastinal silhouette is within normal limits. There are no pleural effusions. There is no pneumothorax suspected. There are calcified granulomas of the right lung. There is mild ectasia of the aorta. There are probable cholecystectomy clips. IMPRESSION: 1: NO ACUTE CARDIOPULMONARY DISEASE. Reviewed, dictated and finalized at location O. PRESIDENT OF ADVERTISING
--- OUTSIDE RECORDS SUMMARY | 2025-04-03 03:14 | XMS_ITS | Clinical Summary ---
Author Organization [facility] Address [address] [place] [id number] Phone Care Team Providers Care Deli Manager Name Role Phone Aly Peterson DO Primary Care Provider [phone] Allergies Active Allergy Reactions Criticality Noted Date [...] ONCE DAILY DOSE INCREASE 2 Active Nystop 483174 UNIT/GM powder Apply topically 2 (two) times [...] 04/29/2017 Coronary arteriosclerosis 04/29/2017 Coronary arteriosclerosis in [place] artery 03/23 Hypertensive disorder 12/31/2016 Resolved Problems [...] on file Legal Sex Female 8:27 AM [facility] Gender Identity Not on file Sexual Orientation [...] Vaccine (#1) 2024 03/25/2021, 2019 Insurance [facility] Care Teams Deli Manager Relationship Specialty Start Date End Date Aly Peterson DO [address] [place] [address] PCP - General Internal Medicine 06/17/20
--- NOTE | 2025-04-03 03:33 | ECG_ITS ---
Test Date: 2025-04-03 03:52:10 Measurements Intervals [place] Rate: 76 P: 24 MS: 171 QRS: 20 QRSD: 72 T: 32 QT: 365 QTc: 411 Interpretive Statements SINUS RHYTHM LOW QRS VOLTAGE IN PRECORDIAL LEADS BASELINE ARTIFACT- I, II, III, AVR, AVL, AVF BORDERLINE ECG Compared to ECG 01/11/2025 09:01:03 Low QRS voltage now present Electronically Signed On 04-03-2025 07:34:18 [employer]NAGER [employer] by Darnell Ames D.O.
[2025-04-03 04:02] LABS: Hematocrit 33.3 % (37.0-47.0); Hemoglobin 9.9 g/dL (12.0-15.0); Immature Granulocyte Percent A 0.4 % (0-0.5); Lymphocytes Absolute Auto 2.19 K/mm3 (0.9-3.2); Mean Corpuscular HGB Conc 29.7 g/dl (32-36); Mean Corpuscular Hemoglobin 26.0 pg (26-34); Mean Corpuscular Volume 87.4 fl (80-100); Nucleated Red Blood Cells Absolute Auto 0.000 K/mm3 (0.0-0.012); Nucleated Red Blood Cells Perc 0.0 % (0.0-0.2); Platelet Count Result 245 k/mm3 (150-375); Red Blood Count 3.81 M/mm3 (4.2-5.4); White Blood Count 7.8 K/mm3 (4.5-10.0)
[2025-04-03 04:13] LABS: Alanine Aminotransferase 17 U/L (6-35); Albumin Level 3.8 g/dL (3.5-5.1); Alkaline Phosphatase 180 U/L (38-126); Anion Gap 10 mmol/L (4-12); Aspartate Amino Transferase 23 U/L (14-36); Bilirubin,Total 0.5 mg/dL (0.2-1.3); Blood Urea Nitrogen 53 mg/dL (7-17); Calcium 9.0 mg/dL (8.4-10.2); Carbon Dioxide 21 mmol/L (22-30); Chloride 110 mmol/L (98-107); Estimated Glomerular Filt Rate 16; Glucose 269 mg/dL (65-110); Lipase 144 U/L (23-300); Potassium 4.9 mmol/L (3.4-5.0); Sodium 141 mmol/L (137-145); Total Protein 7.1 g/dL (6.3-8.2)
[2025-04-03 04:17] LABS: INR 1.0; Prothrombin Time 13.2 Seconds (11.1-14.7)
[2025-04-03 04:18] LABS: Partial Thromboplastin Time 28.6 Seconds (22.3-36.8)
[2025-04-03 04:54] LABS: Anisocytosis 1+; Hypochromasia 1+; Microcytosis 1+ (NORMAL)
[2025-04-03 04:55] LABS: Schistocytes None Seen
--- NOTE | 2025-04-03 06:19 | ED.CHESTPAIN ---
HPI - Chest Pain General Chief Complaint: Chest Pain Stated Complaint: CP-resolved Time Seen by Provider: 04/03/25 06:18 History of Present Illness HPI narrative: 79-year-old female with a history of previous SC, anxiety, diabetes. Patient presents to the emergency department with chest pain that is now resolved. Patient states she woke up with some chest discomfort that was dull and she took an aspirin at home. About 30 minutes later all her symptoms resolved but she called the ambulance and was brought to the hospital. She has been in the waiting room for several hours with no symptoms. She denies any complaints at this time. Was otherwise in her normal state of health. 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 No recent health concerns or health issues. Denies any chest pain presently. No shortness of breath, nausea, vomiting, diaphoresis, abdominal pain, back pain, fever chills. No falls or injuries. Related Data Allergies Allergy/AdvReac Type Severity Reaction Status Date / Time codeine Allergy Intermediate Rash Verified 02/26/25 14:55 Penicillins Allergy Intermediate Rash Verified 02/26/25 14:55 Sulfa (Sulfonamide Allergy Intermediate cheeks get Verified 02/26/25 14:55 Antibiotics) really red hydroxyzine (From Atarax) AdvReac Unknown deep sleep Verified 02/26/25 14:55 mulberry Allergy Mild Rash Uncoded 02/26/25 14:55 Review of Systems Review of Systems: As reviewed above in HPI All systems reviewed & are unremarkable except as noted in HPI and below PMFSH Past Medical History Medical History Chronic pancreatitis Diverticulosis Nausea and vomiting Rectal pain Encounter for immunization Neurocognitive disorder Intertrochanteric fracture of left hip Psychogenic formication Pulmonary HTN Metabolic acidosis NATE (acute kidney injury) Sepsis CHF (congestive heart failure), NYHA class I Anemia Postmenopausal Chronic kidney disease, stage 4 (severe) Coronary artery disease involving nez perce heart without angina pectoris Diabetic peripheral neuropathy Hyperlipidemia, unspecified Hypertension, essential Thrombosed external hemorrhoid Type 2 diabetes mellitus with hyperglycemia PAD (peripheral artery disease) Surgical History Surgical History History of hip surgery with femur H/O heart artery stent X3 Hx of tonsillectomy History of cholecystectomy Laparoscopic cholecystectomy Family History Family History Mother Family history of cardiovascular disease Diabetes mellitus Cerebrovascular accident Father Myocardial infarction Sibling Congestive heart failure Colon cancer Other Hypertension Social History Social History Social History: The patient had 3 children. 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 Her Trey is the durable power patent prosecution attorney for healthcare. The patient is a full code. Who is a lifelong nonsmoker. She does not use any alcohol marijuana or illicit drugs. Code status full code Smoking status: Never smoker Second hand tobacco smoke exposure: No Alcohol intake: never Substance use: never Substance use type: does not use Lack of Transportation: No Lack of Food: Never True Current Housing: I Have Housing Concerned About Future Housing: No Difficulty Paying Gas/Electric Bills: No Difficulty Paying for Meds: No Currently Unemployed: No Education: High School Diploma/GED Difficulty w/ Childcare or Family Care: No Living arrangements: with family Occupation/Education: retired Gender identity (if verbalized by the patient): Female Sexual Orientation (if Verbalized by the Patient): Straight or Heterosexual Spiritual care concerns: No Agree to blood products: Yes Exam Narrative: GENERAL: [Well-appearing, well-nourished, and in no acute distress.] HEAD: [Normocephalic, atraumatic.] EYES: [PERRLA and EOMI.] ENT: Nares clear, no rhinorrhea or epistaxis. Mucous membranes moist. NECK: Supple. CHEST: [Clear to auscultation. No respiratory distress.] HEART: [Regular rate and rhythm]. No murmur heard. [Normal peripheral pulses.] ABDOMEN: [Soft, nondistended], [nontender], [No rigidity or guarding] EXTREMITIES: Normal range of motion. [No edema.] SKIN: Warm, dry, no rash. NEURO: [No focal deficits]. Alert and oriented [x3.] PSYCH: [Normal mood and affect.] Course Vital Signs Vital signs: Vital Signs Temperature 36.6 C 04/03/25 03:37 Pulse Rate 77 04/03/25 03:37 Respiratory Rate 16 04/03/25 03:37 Blood Pressure 147/80 H 04/03/25 03:37 Pulse Oximetry 99 04/03/25 03:37 Temperature 36.6 C 04/03/25 03:37 Pulse Rate 68 04/03/25 07:15 Respiratory Rate 19 04/03/25 07:15 Blood Pressure 169/94 H 04/03/25 07:15 Pulse Oximetry 100 04/03/25 07:15 Oxygen Delivery Room Air 04/03/25 06:29 [facility] Narrative Medical decision making narrative: 79-year-old female with a history of previous SC, anxiety, diabetes. Patient presents to the emergency department with chest pain that is now resolved. Patient states she woke up with some chest discomfort that was dull and she took an aspirin at home. About 30 minutes later all her symptoms resolved but she called the ambulance and was brought to the hospital. She has been in the waiting room for several hours with no symptoms. She denies any complaints at this time. Was otherwise in her normal state of health. 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 No recent health concerns or health issues. Denies any chest pain presently. No shortness of breath, nausea, vomiting, diaphoresis, abdominal pain, back pain, fever chills. No falls or injuries. Patient has a benign physical examination is very well-appearing. She is asymptomatic presently with normal vital signs. No tachycardia, fever, hypoxemia or significant blood pressure concerns. Clear breath sounds, strong pulses, no complaints at this time. Given her cardiac risk factors a cardiac workup was obtained at this time including troponin and delta troponin, EKG and chest x-ray. Initial EKG nonischemic with initial troponin negative. Will obtain delta and likely discharge with Cardiology follow-up if unremarkable and she remains asymptomatic. Patient and family comfortable with this plan. Differential Diagnosis Differential Diagnosis: Musculoskeletal chest pain, GERD, mi, ACS, anxiety Lab Data [facility] Lab Attestation statement: I personally reviewed the patient's lab results. 04/03/25 03:46 04/03/25 03:46 Labs: Lab Results 04/03/25 04/03/25 Range/Units 03:46 06:31 WBC 7.8 (4.5-10.0) K/mm3 RBC 3.81 L (4.2-5.4) M/mm3 Hgb 9.9 L (12.0-15.0) g/dL Hct 33.3 L (37.0-47.0) % MCV 87.4 (80-100) fl MCH 26.0 (26-34) pg MCHC 29.7 L (32-36) g/dl RDW 17.3 H (11.5-14.5) % Plt Count 245 (150-375) k/mm3 MPV 9.4 (7.4-10.4) fl Immature Gran % (Auto) 0.4 (0-0.5) % Neut % (Auto) 58.9 (45.5-73.1) % Lymph % (Auto) 28.1 (18.3-44.2) % [place] % (Auto) 8.5 (2.6-8.5) % Eos % (Auto) 3.6 (0-4.4) % Baso % (Auto) 0.5 (0.2-1.2) % Lymph # (Auto) 2.19 (0.9-3.2) K/mm3 [place] # (Auto) 0.7 H (0.1-0.6) K/mm3 Eos # (Auto) 0.3 (0-0.3) K/mm3 Baso # (Auto) 0.0 (0.0-0.1) K/mm3 Abs Immat Gran (auto) 0.03 (0.00-0.031) K/mm3 Absolute Neuts (auto) 4.6 (1.3-6.7) K/mm3 Absolute Nucleated RBC 0.000 (0.0-0.012) K/mm3 Band Neutrophils % Not Reportable Nucleated RBC % 0.0 (0.0-0.2) % Platelet Estimate Adequate (Adequate) Hypochromasia 1+ Anisocytosis 1+ Microcytosis 1+ (NORMAL) Schistocytes None seen PT 13.2 (11.1-14.7) Seconds INR 1.0 APTT 28.6 (22.3-36.8) Seconds Sodium 141 (137-145) mmol/L Potassium 4.9 (3.4-5.0) mmol/L Chloride 110 H (98-107) mmol/L Carbon Dioxide 21 L (22-30) mmol/L Anion Gap 10 (4-12) mmol/L BUN 53 H (7-17) mg/dL Creatinine 2.86 H (0.7-1.0) mg/dL Estim Creat Clear Calc Not Reportable Estimated GFR 16 L (59 - ) Glucose 269 H (65-110) mg/dL Calcium 9.0 (8.4-10.2) mg/dL Total Bilirubin 0.5 (0.2-1.3) mg/dL AST 23 (14-36) U/L ALT 17 (6-35) U/L Alkaline Phosphatase 180 H (38-126) U/L Troponin I < 0.012 < 0.012 (0.000-0.034) ng/mL Total Protein 7.1 (6.3-8.2) g/dL Albumin 3.8 (3.5-5.1) g/dL Lipase 144 (23-300) U/L Imaging Data Attestation: I personally reviewed and interpreted this imaging study as follows: My impression: No obvious focal pneumonia. No pneumothorax. No mediastinal widening. Radiologist's impression: ITS Impressions Chest X-Ray 04/03/25 06:54 IMPRESSION: 1: NO ACUTE CARDIOPULMONARY DISEASE. Discharge Plan Discharge Clinical Impression: Chest pain Qualifiers: Chest pain type: unspecified Qualified Code(s): R07.9 - Chest pain, unspecified Clinical Impression: (Ruled Out): Menopausal state Patient Disposition: Home Condition: Stable Instructions: Antibiotic Form, Chest Pain (ED) Additional Instructions: Return with any emergent concerns, cardiac workup unremarkable today. Follow-up with regular lace roller operator for outpatient stress testing. Return with any recurrent or new symptoms. Patient Language: Hebrew Prescriptions: No Action pantoprazole 20 mg tablet,delayed release (DR/EC) 20 mg PO QAM Qty: 90 1RF triamcinolone acetonide 0.1 % cream 1 applic topical TID Qty: 30 0RF Rx Instructions: apply externally 2-3 times per day as needed until symptoms resolve Jardiance 10 mg tablet 10 mg PO DAILY Qty: 30 5RF polyethylene glycol 3350 [Miralax] 17 gram Powder In Packet 17 g PO QAM Qty: 30 0RF aspirin [Adult Aspirin Regimen] 81 mg tablet,delayed release (DR/EC) 81 mg PO DAILY Qty: 30 1RF amlodipine 10 mg tablet See Rx Instructions .ROUTE .COMPLEX Qty: 90 1RF Dose Instruction: Take 1 tablet by mouth once daily Rx Instructions: Take 1 tablet by mouth once daily atorvastatin 80 mg tablet See Rx Instructions .ROUTE .COMPLEX Qty: 90 1RF Dose Instruction: Take 1 tablet by mouth once daily Rx Instructions: Take 1 tablet by mouth once daily hydrocortisone [Procto-Med HC] 2.5 % cream with perineal applicator See Rx Instructions .ROUTE .COMPLEX Qty: 28 0RF Dose Instruction: APPLY CREAM RECTALLY TWICE DAILY FOR HEMORRHOIDS NEEDED Rx Instructions: APPLY CREAM RECTALLY TWICE DAILY FOR HEMORRHOIDS NEEDED (DME) FreeStyle Ronal 2 Sensor Kit See Rx Instructions .ROUTE .MEDSUPPLY Qty: 6 3RF Rx Instructions: As directed isosorbide mononitrate 30 mg tablet extended release 24 hr 30 mg PO QAM Qty: 30 0RF carvedilol 6.25 mg tablet 12.5 mg PO BID Qty: 180 1RF docusate sodium [[employer] Liqui-Gels] 100 mg capsule See Rx Instructions .ROUTE .COMPLEX Qty: 90 0RF Dose Instruction: TAKE 1 CAPSULE BY MOUTH THREE TIMES DAILY Rx Instructions: TAKE 1 CAPSULE BY MOUTH THREE TIMES DAILY dicyclomine 20 mg tablet 20 mg PO TID PRN (Reason: cramping) Qty: 20 1RF ondansetron 4 mg tablet,disintegrating See Rx Instructions .ROUTE .COMPLEX Qty: 20 0RF Dose Instruction: DISSOLVE 1 TABLET IN MOUTH EVERY 8 HOURS NEEDED FOR NAUSEA AND VOMITING Rx Instructions: DISSOLVE 1 TABLET IN MOUTH EVERY 8 HOURS NEEDED FOR NAUSEA AND VOMITING clopidogrel 75 mg tablet See Rx Instructions .ROUTE .COMPLEX Qty: 30 0RF Dose Instruction: TAKE 1 TABLET BY MOUTH IN THE MORNING Rx Instructions: TAKE 1 TABLET BY MOUTH IN THE MORNING acetaminophen [Tylenol] 325 mg capsule 650 mg PO Q6H PRN (Reason: pain) Qty: 30 0RF Follow-up/Referrals: Martir Esquivel MD [Primary Care Provider, Family Practice] Time of Disposition: 06:52
--- OUTSIDE RECORDS SUMMARY | 2025-04-03 06:33 | XMS_ITS | Clinical Summary ---
Author Organization [facility] Address [address] [place] [id number] Phone Care Team Providers Care Lead Software Engineer Name Role Phone Aly Peterson DO Primary Care Provider [phone] Allergies Active Allergy Reactions Criticality Noted Date [...] ONCE DAILY DOSE INCREASE 2 Active Nystop 412021 UNIT/GM powder Apply topically 2 (two) times [...] 04/29/2017 Coronary arteriosclerosis 04/29/2017 Coronary arteriosclerosis in [place] artery 03/23 Hypertensive disorder 12/31/2016 Resolved Problems [...] file Legal Sex Female 8:27 AM [facility] Gender Identity Not on file Sexual [...] Influenza Vaccine (#1) 2024 03/25/2021, 2019 Insurance [facility] Care Teams Lead Software Engineer Relationship Specialty Start Date End Date Aly Peterson DO [address] [place] [address] PCP - General Internal Medicine 06/17/20
[2025-04-03 06:46] LABS: Troponin I < 0.012 ng/mL (0.000-0.034)
[2025-04-03 06:59] LABS: Troponin I < 0.012 ng/mL (0.000-0.034)
== END 2025-04-03 07:28 | disposition home or self-care (01) ==
PROVIDERS: Emergency Provider Student in an Organized Health Care Education/Training Program; PCP Family Medicine
DX: R07.9 Chest pain, unspecified (principal); I25.2 Old myocardial infarction; F41.9 Anxiety disorder, unspecified; N18.4 Chronic kidney disease, stage 4 (severe); E11.22 Type 2 diabetes mellitus with diabetic chronic kidney disease; I50.9 Heart failure, unspecified; I25.10 Atherosclerotic heart disease of native coronary artery without angina pectoris; I13.0 Hypertensive heart and chronic kidney disease with heart failure and stage 1 through stage 4 chronic kidney disease, or unspecified chronic kidney disease; E78.5 Hyperlipidemia, unspecified; E11.42 Type 2 diabetes mellitus with diabetic polyneuropathy
CPT/HCPCS: 36415; 71046; 80053; 83690; 84484; 85025; 85610; 85730; 93005; 99284